=== PATIENT | male | born 1935 | race Caucasian/White ===

== ENCOUNTER → 2017-09-25 | Outpatient (CLI) | payer MEDICARE ==
[2017-09-25 07:26] LABS: BASO # 0.1 10^3/uL (0.0-0.2); BASO % 0.9 % (0.0-1.0); EOS # 0.7 10^3/uL (0.0-0.50); EOS % 6.7 % (0.0-3.0); HEMATOCRIT 43.4 % (42.0-52.0); HEMOGLOBIN 14.4 g/dl (13.5-17.5); IMMATURE GRANULOCYTE % 0.2 % (0-3.0); LYMPH # 1.4 10^3/uL (1.5-4.5); LYMPH % 14.8 % (24.0-44.0); MEAN CORPUSCULAR HEMOGLOBIN 29.8 pg (27.0-33.0); MEAN CORPUSCULAR HGB CONC 33.2 g/dl (32.0-36.5); MEAN CORPUSCULAR VOLUME 89.9 fl (80.0-96.0); MONO # 0.8 10^3/uL (0.0-0.8); MONO % 8.1 % (0.0-5.0); NEUTROPHILS # 6.7 10^3/uL (1.8-7.7); NEUTROPHILS % 69.3 % (36.0-66.0); PLATELET COUNT, AUTOMATED 239 10^3/uL (150-450); RED BLOOD COUNT 4.83 10^6/uL (4.30-6.10); RED CELL DISTRIBUTION WIDTH 14.1 % (11.5-14.5); WHITE BLOOD COUNT 9.7 10^3/uL (4.0-10.0)
[2017-09-25 07:48] LABS: C REACTIVE PROTEIN QUANTITATIV < 0.30 MG/DL (0.00-0.30)
[2017-09-25 08:15] LABS: ERYTHROCYTE SEDIMENTATION RATE 7 mm/hr (0-20)
== END ==
LOC: M RAD 06:54
DX: Z96.651 Presence of right artificial knee joint (principal)
CPT/HCPCS: 78315

== ENCOUNTER 2017-10-28 10:31 | Emergency (ER) | payer MEDICARE ==
[2017-10-28] MEDS: TETANUS/DIPHTHERIA TOX ADSORB ADULT 0.5ML SYR/VIAL (90714) IM (12:34)
[2017-10-28 12:46] LABS: INR 1.97; PROTHROMBIN TIME 22.8 SECONDS (12.1-14.4)
[2017-10-28 12:47] LABS: PARTIAL THROMBOPLASTIN TIME 39.2 SECONDS (25.4-37.6)
== END 2017-10-28 13:47 | disposition home or self-care (01) ==
LOC: M ED 10:31
DX: S00.93XA Contusion of unspecified part of head, initial encounter (principal); W22.8XXA Striking against or struck by other objects, initial encounter; Y92.018 Other place in single-family (private) house as the place of occurrence of the external cause; I10 Essential (primary) hypertension; I25.10 Atherosclerotic heart disease of native coronary artery without angina pectoris; I25.2 Old myocardial infarction; Z79.899 Other long term (current) drug therapy; Z79.82 Long term (current) use of aspirin; Z79.01 Long term (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s; Z88.3 Allergy status to other anti-infective agents; Z88.8 Allergy status to other drugs, medicaments and biological substances; Z91.013 Allergy to seafood; Z91.018 Allergy to other foods
CPT/HCPCS: 90714

== ENCOUNTER 2018-05-12 15:31 | Emergency (ER) | payer MEDICARE ==
[~2018-05-12 15:31] MED LIST: /WARF5TA; /WARF5TA PO; ACET65TA; ADV250INH INH; ADVAIR; AMLO10TA; AMLO10TAB; ASPI81TA85 PO; ATEN50TA2; AVAP300T; B-12100T2 PO; BRIM1OPD OP; FURO20TA2 PO; IRON27TA2 PO; LATA5OPD OP; LEVO75TA4 PO; LOSA50TA88 PO; MAALSUS; MOMETASONE FUROATE; NORV5TAB; PERC5TAB8; PERC7.5T8; PRIL20CA; PRIL20CA PO; PROV90AE; SIMV40TA2; TRAVOPROST; ZOCO80TA
[2018-05-12] MEDS ORDERED: XALA0.007 (16:21)
[2018-05-12] MEDS ORDERED: APAP325T4 PO (16:21)
[2018-05-12] MEDS ORDERED: ATOR40TA75 PO (16:21)
[2018-05-12] MEDS ORDERED: COUM1TAB17 (16:21)
[2018-05-12] MEDS ORDERED: traMADol 50 MG TAB PO ONE ×2 (17:30→20:30)
[2018-05-12 18:01] LABS: BASO # 0.1 10^3/uL (0.0-0.2); BASO % 0.8 % (0.0-1.0); EOS # 0.3 10^3/uL (0.0-0.50); EOS % 2.2 % (0.0-3.0); HEMATOCRIT 44.3 % (42.0-52.0); HEMOGLOBIN 14.3 g/dl (13.5-17.5); LYMPH # 1.5 10^3/uL (1.5-4.5); LYMPH % 10.2 % (24.0-44.0); MEAN CORPUSCULAR HGB CONC 32.3 g/dl (32.0-36.5); MEAN CORPUSCULAR VOLUME 89.9 fl (80.0-96.0); MONO % 6.9 % (0.0-5.0); NEUTROPHILS # 11.7 10^3/uL (1.8-7.7); NEUTROPHILS % 79.5 % (36.0-66.0); PLATELET COUNT, AUTOMATED 286 10^3/uL (150-450); RED BLOOD COUNT 4.93 10^6/uL (4.30-6.10); WHITE BLOOD COUNT 14.7 10^3/uL (4.0-10.0)
[2018-05-12 18:24] LABS: BLOOD UREA NITROGEN 29 MG/DL (7-18); CALCIUM LEVEL 9.2 MG/DL (8.8-10.2); CARBON DIOXIDE LEVEL 24 MEQ/L (21-32); CHLORIDE LEVEL 109 MEQ/L (98-107); CREATININE FOR GFR 1.25 MG/DL (0.70-1.30); GLUCOSE, FASTING 97 MG/DL (70-100); SODIUM LEVEL 141 MEQ/L (136-145)
[2018-05-12] MEDS ORDERED: ISOVUE-370 76% 100ML VIAL (Q9967) As Ordered ONE (18:28)
[2018-05-12 18:44] LABS: CPK CREATINE PHOSPHOKINASE 153 U/L (39-308); MB/CK RELATIVE INDEX 2.55 (< OR =4); TROPONIN I < 0.02 NG/ML (< 0.10)
--- NOTE | 2018-05-12 19:30 | REPVR ---
EXAM: CT Chest With Contrast EXAM DATE/TIME: 05/12/2018 6:30 PM CLINICAL HISTORY: 82 years old, male; Pain; Chest pain; Additional info: L flank pain, back pain after shoveling, PT tender TECHNIQUE: Axial computed tomography images of the chest with intravenous contrast. All CT scans at this facility use at least one of these dose optimization techniques: automated exposure control; mA and/or kV adjustment per patient size (includes targeted exams where dose is matched to clinical indication); or iterative reconstruction. Coronal and sagittal reformatted images were created and reviewed. Technologist notes: Facility exam id and description: [facility]. [facility] CT chest with contrast CONTRAST: Contrast Material: 75 ml of iso 370; Contrast Route: iv COMPARISON: No relevant prior studies available. FINDINGS: Lungs: Mild changes of centrilobular emphysema in the upper lung zones. Atelectasis right lung base. Pleural space: Normal. No pneumothorax. No pleural effusion. Heart: Normal. No cardiomegaly. No pericardial effusion. Pulmonary arteries: No pulmonary embolus. Aorta: The aorta demonstrates moderate atherosclerotic calcification. No aortic aneurysm or dissection. Lymph nodes: Mediastinal lymphadenopathy likely postinflammatory. Bones/joints: The spine demonstrates mild degenerative changes. Osteoporosis. Compression deformities of T4 and T5 likely osteoporotic in chronic although clinical correlation to exclude acute fractures, particularly at T4 suggested. Soft tissues: Unremarkable. IMPRESSION: 1. Mild changes of centrilobular emphysema in the upper lung zones. 2. No aortic aneurysm or dissection. 3. No pulmonary embolus. 4. Osteoporosis. Compression deformities of T4 and T5 likely osteoporotic in chronic although clinical correlation to exclude acute fractures, particularly at T4 suggested. MRI correlation would be helpful if clinically desired. Electronically signed by: Ashok Edwards On 05/12/2018 19:30:15 PM
--- NOTE | 2018-05-12 19:32 | REPVR ---
EXAM: CT Thoracic Spine Without Contrast EXAM DATE/TIME: 05/12/2018 6:30 PM CLINICAL HISTORY: 82 years old, male; Pain; Pain in thoracic spine; Additional info: Back/flank pain after shoveling x 2 wks TECHNIQUE: Axial computed tomography images of the thoracic spine without intravenous contrast. All CT scans at this facility use at least one of these dose optimization techniques: automated exposure control; mA and/or kV adjustment per patient size (includes targeted exams where dose is matched to clinical indication); or iterative reconstruction. Coronal and sagittal reformatted images were created and reviewed. Technologist notes: Facility exam id and description: CT. Spt[facility] CT spine, thoracic w/o contrast COMPARISON: No relevant prior studies available. FINDINGS: Vertebrae: Compression deformities of T7 and T6 which may be acute, likely related to osteoporosis. Pathological fracture and T6 should be considered as well in the appropriate clinical setting. Degenerative spondylosis thoracic spine. Discs/Spinal canal/Neural foramina: No spinal stenosis. No neural foraminal narrowing. Soft tissues: Unremarkable. IMPRESSION: Compression deformities of T7 and T6 which may be acute, likely related to osteoporosis. Pathological fracture and T6 should be considered as well in the appropriate clinical setting. MRI correlation would be helpful clinically desired. Electronically signed by: Ashok Edwards On 05/12/2018 19:32:26 PM
[2018-05-12] MEDS ORDERED: TRAM50TA2 PO (19:53)
[2018-05-12 20:03] VITALS: BP 163/72
--- NOTE | 2018-05-14 07:41 | ECGEPIP ---
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
--- NOTE | 2018-05-18 20:33 | ED PDOC ---
Post-Departure Follow-Up juliet thompson and kaity faxed formal report of ct chest for fu Ciaar Feliz MD May 18, 2018 20:33
== END 2018-05-12 20:32 | disposition home or self-care (01) ==
LOC: M ED 15:31
DX: S22.050A Wedge compression fracture of T5-T6 vertebra, initial encounter for closed fracture (principal); S22.060A Wedge compression fracture of T7-T8 vertebra, initial encounter for closed fracture; X50.0XXA Overexertion from strenuous movement or load, initial encounter; Y92.89 Other specified places as the place of occurrence of the external cause; M81.0 Age-related osteoporosis without current pathological fracture; I10 Essential (primary) hypertension; E78.5 Hyperlipidemia, unspecified; I25.2 Old myocardial infarction; Z87.891 Personal history of nicotine dependence; Z86.79 Personal history of other diseases of the circulatory system; Z79.899 Other long term (current) drug therapy; Z79.01 Long term (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s; Z79.51 Long term (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 inhaled steroids; Z79.82 Long term (current) use of aspirin; Z91.013 Allergy to seafood; Z88.1 Allergy status to other antibiotic agents; Z88.8 Allergy status to other drugs, medicaments and biological substances; Z91.018 Allergy to other foods
CPT/HCPCS: 71260; 72128; 80048; 82550; 82553; 84484; 85025; 93005; 99284; Q9967

== ENCOUNTER 2018-05-17 16:27 | Emergency (ER) | payer MEDICARE ==
[~2018-05-17] VITALS: Ht 160 cm; Wt 85.5 kg
[~2018-05-17 16:27] MED LIST changes: +APAP325T4 PO; +ATOR40TA75 PO; +COUM1TAB17; +TRAM50TA2 PO; +XALA0.007
[2018-05-17] MEDS ORDERED: FUROSEMIDE 100 MG/10 ML VIAL (J1940) IV ONE (16:45)
[2018-05-17] MEDS ORDERED: ASPIRIN 81 MG CHEW TABLET PO ONE (16:45)
[2018-05-17 17:02] LABS: BASO # 0.1 10^3/uL (0.0-0.2); BASO % 0.9 % (0.0-1.0); EOS # 0.5 10^3/uL (0.0-0.50); EOS % 4.6 % (0.0-3.0); HEMATOCRIT 40.8 % (42.0-52.0); HEMOGLOBIN 13.5 g/dl (13.5-17.5); LYMPH # 2.1 10^3/uL (1.5-4.5); LYMPH % 20.7 % (24.0-44.0); MEAN CORPUSCULAR HEMOGLOBIN 29.4 pg (27.0-33.0); MEAN CORPUSCULAR HGB CONC 33.1 g/dl (32.0-36.5); MEAN CORPUSCULAR VOLUME 88.9 fl (80.0-96.0); MONO # 0.9 10^3/uL (0.0-0.8); MONO % 8.7 % (0.0-5.0); NEUTROPHILS # 6.6 10^3/uL (1.8-7.7); NEUTROPHILS % 64.5 % (36.0-66.0); PLATELET COUNT, AUTOMATED 272 10^3/uL (150-450); RED BLOOD COUNT 4.59 10^6/uL (4.30-6.10); WHITE BLOOD COUNT 10.3 10^3/uL (4.0-10.0)
[2018-05-17 17:23] LABS: INR 3.23; PROTHROMBIN TIME 33.7 SECONDS (12.1-14.4)
[2018-05-17 17:31] LABS: BLOOD UREA NITROGEN 26 MG/DL (7-18); CALCIUM LEVEL 9.3 MG/DL (8.8-10.2); CARBON DIOXIDE LEVEL 25 MEQ/L (21-32); CHLORIDE LEVEL 110 MEQ/L (98-107); CPK CREATINE PHOSPHOKINASE 239 U/L (39-308); CREATININE FOR GFR 1.01 MG/DL (0.70-1.30); GLOMERULAR FILTRATION RATE > 60.0 (>35); GLUCOSE, FASTING 126 MG/DL (70-100); NT-PRO BNP 780 PG/ML (<450); POTASSIUM SERUM 3.7 MEQ/L (3.5-5.1); SODIUM LEVEL 143 MEQ/L (136-145); TROPONIN I < 0.02 NG/ML (< 0.10)
--- NOTE | 2018-05-17 19:20 | REPVR ---
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 Complete exam focused on the bilateral lower extremity veins. COMPARISON: No relevant prior studies available. FINDINGS: Right deep veins: Unremarkable. The common femoral, femoral, proximal profunda femoral and popliteal veins are patent without thrombus. Normal Doppler waveforms. Normal compressibility and/or augmentation response. Right superficial veins: Saphenofemoral junction is patent without thrombus. Right common femoral artery: Postoperative changes in the right common femoral artery. Left deep veins: Unremarkable. The common femoral, femoral, proximal profunda femoral and popliteal veins are patent without thrombus. Normal Doppler waveforms. Normal compressibility and/or augmentation response. Left superficial veins: Saphenofemoral junction is patent without thrombus. Soft tissues: Unremarkable. IMPRESSION: 1. No sonographic evidence of deep venous thrombosis. 2. Additional findings, as above. Electronically signed by: Osei Bates On 05/17/2018 19:20:13 PM
[2018-05-17 20:04] VITALS: BP 159/74
--- NOTE | 2018-05-18 08:39 | REP ---
Clinical: Chest pain. Comparison: 06/30/2013. Findings: Cardiac silhouette is upper limits of normal in size but remains stable. Evidence for prior coronary artery stenting. Lung hollis demonstrate chronic interstitial changes. No obvious acute consolidation, effusion, or pneumothorax. Skeletal structures demonstrate stable degenerative changes. Impression: Chronic stable changes. No obvious acute cardiopulmonary process appreciated. Electronically Signed by Romel Gtz MD 05/18/2018 08:30 A
--- NOTE | 2018-05-20 20:14 | ECGEPIP ---
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
== END 2018-05-17 20:10 | disposition home or self-care (01) ==
LOC: M ED 16:27 → EDBD 16:27 → M ED 20:10
DX: I50.9 Heart failure, unspecified (principal); R60.0 Localized edema; I11.0 Hypertensive heart disease with heart failure; K21.9 Gastro-esophageal reflux disease without esophagitis; E07.9 Disorder of thyroid, unspecified; I25.10 Atherosclerotic heart disease of native coronary artery without angina pectoris; Z95.5 Presence of coronary angioplasty implant and graft; Z79.899 Other long term (current) drug therapy; Z79.890 Hormone replacement therapy; Z79.82 Long term (current) use of aspirin; Z79.01 Long term (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s; Z88.1 Allergy status to other antibiotic agents; Z88.8 Allergy status to other drugs, medicaments and biological substances; Z91.018 Allergy to other foods
CPT/HCPCS: 36415; 71045; 80048; 82550; 82553; 83880; 84484; 85025; 85610; 93005; 93041; 93970; 94760; 96374; 99285; J1940

== ENCOUNTER → 2020-07-15 | Outpatient (CLI) | payer MEDICARE ==
[~2020-07-15] MED LIST changes: -/WARF5TA; -/WARF5TA PO; -ASPI81TA85 PO; +ASPI81TA86 PO; +COUM1TAB17 PO; +LATA0.0013 OP; -LATA5OPD OP
== END ==
LOC: M LABSMTC 08:56
PROVIDERS: ATTEND Internal Medicine Cardiovascular Disease
DX: Z11.52 Encounter for screening for COVID-19 (principal)

== ENCOUNTER → 2020-07-28 | Outpatient (CLI) | payer MEDICARE | LOC: M LABSMTC 13:23 | PROVIDERS: ATTEND Internal Medicine Cardiovascular Disease | DX: Z20.828 Contact with and (suspected) exposure to other viral communicable diseases (principal); Z11.59 Encounter for screening for other viral diseases ==

== ENCOUNTER → 2020-08-23 | Outpatient (REF) | payer MEDICARE | LOC: M LAB REF 16:48 | PROVIDERS: ATTEND Nurse Practitioner Family | DX: N39.0 Urinary tract infection, site not specified (principal) ==

== ENCOUNTER → 2020-09-04 | Outpatient (REF) | payer MEDICARE | LOC: M WUC 16:24 | PROVIDERS: ATTEND Physician Assistant | DX: R30.0 Dysuria (principal) ==

== ENCOUNTER → 2020-12-20 | Outpatient (REF) | payer MEDICARE | LOC: M LAB REF 11:39 | PROVIDERS: ATTEND Nurse Practitioner Adult Health | DX: N39.0 Urinary tract infection, site not specified (principal) ==

== ENCOUNTER 2021-01-09 11:19 | Inpatient (IN) | payer MEDICARE ==
[~2021-01-09] VITALS: Ht 152.4 cm; Wt 64.4 kg
[~2021-01-09 11:19] MED LIST changes: -BRIM1OPD OP; +BRIM1OPD OU
[2021-01-09 11:44] LABS: VENOUS BASE EXCESS 1.8 (-2.0-2.0); VENOUS HCO3 26.6 MEQ/L (23.0-27.0); VENOUS O2 SATURATION 72.7 % (60.0-80.0); VENOUS PARTIAL PRESSURE O2 40.3 mmHg (30.0-50.0); VENOUS PH 7.419 UNITS (7.330-7.430); VENOUS STANDARD HCO3 25.4 MEQ/L; VENOUS TOTAL CO2 27.9 MEQ/L (24.0-28.0)
[2021-01-09 11:46] LABS: BASO # 0.1 10^3/uL (0.0-0.2); BASO % 0.2 % (0.0-1.0); HEMATOCRIT 45.2 % (42.0-52.0); HEMOGLOBIN 14.4 g/dl (13.5-17.5); LYMPH # 0.7 10^3/uL (1.5-5.0); MEAN CORPUSCULAR HEMOGLOBIN 26.3 pg (27.0-33.0); MEAN CORPUSCULAR HGB CONC 31.9 g/dl (32.0-36.5); MEAN CORPUSCULAR VOLUME 82.6 fl (80.0-96.0); MONO # 1.4 10^3/uL (0.0-0.8); MONO % 6.5 % (2.0-8.0); NEUTROPHILS # 19.4 10^3/uL (1.5-8.5); NEUTROPHILS % 89.7 % (36.0-66.0); PLATELET COUNT, AUTOMATED 404 10^3/uL (150-450); RED BLOOD COUNT 5.47 10^6/uL (4.30-6.10); WHITE BLOOD COUNT 21.7 10^3/uL (4.0-10.0)
--- NOTE | 2021-01-09 11:47 | REP ---
INDICATION: DYSPNEA/COUGH. COMPARISON: Tubal the latest 05/17/2018 TECHNIQUE: Portable FINDINGS: The technique utilized in obtaining the radiograph has magnified the cardiac silhouette and accentuated the interstitial markings. Since the last exam a dual chamber bipolar pacemaker device has been placed. The leads appear appropriate and contiguous. An intracardiac device is also identified representing a change. The lung hollis appear stable. No acute patchy parenchymal opacities or pleural effusions have developed. There is evidence of interstitial fibrotic change status quo. There is no significant change in the osseous structures IMPRESSION: There is no evidence of acute cardiopulmonary disease. Findings as described above. <Electronically signed by Benigno Rod > 01/09/21 [id number]
[2021-01-09 12:18] LABS: ALBUMIN 3.6 GM/DL (3.2-5.2); BILIRUBIN,DIRECT 0.3 MG/DL (0.0-0.2); BILIRUBIN,TOTAL 1.1 MG/DL (0.2-1.0); CALCIUM LEVEL 10.2 MG/DL (8.8-10.2); CK-MB VALUE MASS 1.2 NG/ML (<3.6); CREATININE FOR GFR 1.76 MG/DL (0.70-1.30); GLOMERULAR FILTRATION RATE 39.5 (>35); MB/CK RELATIVE INDEX 3.16 (< OR =4); POTASSIUM SERUM 3.7 MEQ/L (3.5-5.1); THYROID STIMULATING HORMONE 5.88 uIU/ML (0.358-3.740); THYROXINE (T4) 8.6 UG/DL (4.5-12.0); TOTAL PROTEIN 7.7 GM/DL (6.4-8.2); TROPONIN I 0.04 NG/ML (< 0.10)
[2021-01-09 12:54] LABS: INR 4.09; PROTHROMBIN TIME 39.9 SECONDS (12.7-14.5)
[2021-01-09] MEDS ORDERED: WARF-23 PO (13:19)
[2021-01-09] MEDS ORDERED: CLOP75TA2 PO (13:19)
[2021-01-09] MEDS ORDERED: XALA0.007 OU (13:19)
[2021-01-09] MEDS ORDERED: MAGN400C PO (13:19)
[2021-01-09] MEDS ORDERED: XANA0.25 PO (13:19)
[2021-01-09] MEDS ORDERED: K-TA10TA2 PO (13:19)
[2021-01-09] MEDS ORDERED: OMEP-218 PO (13:19)
[2021-01-09] MEDS ORDERED: ATEN25TA PO (13:19)
[2021-01-09] MEDS ORDERED: PROAAER10 INH (13:19)
[2021-01-09] MEDS ORDERED: HOME MED LIST COMPLETE! XX SCH (13:20)
[2021-01-09] MEDS ORDERED: cefTRIAXone SOD 2 GM in D5W MINI-BAG PLUS 50 ML IV ONE (13:35)
--- NOTE | 2021-01-09 13:59 | REP ---
INDICATION: lactic acidosis COMPARISON: 05/12/2018 the only prior TECHNIQUE: Standard helical technique without contrast FINDINGS: There is no evidence of mediastinal or hilar adenopathy. There is a small right pleural effusion. The esophagus is fluid-filled. There is no pericardial effusion. The imaged upper abdomen shows a fluid-filled distended stomach. There is a tiny amount of ascites along the inferior hepatic edge. Evaluation of the osseous structures shows thoracic vertebral body compression fractures have increased in number and worsened in severity. Evaluation of the lung hollis shows a patchy opacity in the right lower lobe abutting the right pleural effusion. There is evidence of fibrotic change and emphysematous change status quo. No spiculated masses have developed. IMPRESSION: 1. There is a small right pleural effusion. 2. Likely subsegmental atelectatic changes in the right lower lobe versus developing pneumonia. 3. Other findings as described above. <Electronically signed by Benigno Rod > 01/09/21 [id number]
--- NOTE | 2021-01-09 14:04 | REP ---
INDICATION: lactic acidosis. COMPARISON: 02/22/2008 the only prior TECHNIQUE: Standard helical technique without contrast FINDINGS: There is a small amount of free fluid seen along the right inferior hepatic edge. The liver, gallbladder, spleen, pancreas, adrenal glands, and right kidney are unremarkable. There is a calcification in 1 of the extrarenal vessels consistent with renovascular calcifications. Arising from the inferior pole there is 4 cm size cyst. There is calcific atherosclerotic change in the abdominal aorta. There is no para-aortic adenopathy. Dilated fluid and gas-filled small bowel loops are seen throughout the abdomen and pelvis. There is a fluid and gas-filled distended stomach. There is a tiny amount of fluid in left paracolic gutter. There is a small ventral hernia through which small bowel loop protrudes. Bone window technique throughout the examination shows degenerative changes IMPRESSION: 1. Small bowel obstruction versus ileus. 2. Small amounts of free fluid. 3. Simple left renal cyst. 4. Small ventral hernia. 5. Other findings as described above. <Electronically signed by Benigno Rod > 01/09/21 [id number]
[2021-01-09] MEDS ORDERED: NS 2,080 ML in IV 1 EA IV ONE (14:25)
[2021-01-09] MEDS ORDERED: ALBUTEROL 90 MCG/ACT 8GM HFA INHALER INH PRN (15:30)
[2021-01-09] MEDS ORDERED: ALPRAZolam 0.25 MG TAB PO PRN (15:30)
[2021-01-09] MEDS ORDERED: ACETAMINOPHEN TAB 650MG DOSE (2X325MG) PO PRN (15:30)
--- OUTSIDE RECORDS SUMMARY | 2021-01-09 15:41 | CCD | Continuity of Care Document ---
Author Author Yovany Tristan MD Organization Unknown Address [address] [facility] [address] [place] [address] Phone [phone] Care Team Providers Care Flux Plant Operator Name Role Phone Sameer Tristan JR, MD AUTM Unavailable Nicolas Albert MD AUTM [phone] Dick Medina MD AUTM [phone] Servando Collins MD AUTM [phone] Clara Lagunas OD AUTM Unavailable Renetta Swanson MD AUTM [phone] Brenda Mcgraw AUTM [phone] Problems Active Problems Provider Date Anticoagulants Knowledge Architect (Current) Use O nset: 01/25/1997 Injury Blood Vessel(S) Lower Extrem Other Specified Onset: 01/25/1997 Coronary arteriosclerosis Sameer Tristan MD Onset: 10/21 Chronic obstructive lung disease Sameer Tristan MD Onset : 10/21/2010 Gastroesophageal reflux disease Sameer Tristan MD Onset: 10/21/2010 Garza's esophagus Sameer Tristan MD Onset: 10/21/2010 Old myocardial infarction ELENA Lucas Onset: 011 Hematuria syndrome ELENA Lucas Onset: 10/21/2010 Benign essential hypertension ELENA Lucas Onset: Pure hypercholesterolemia ELENA Lucas Onset: 011 Long-term current use of 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 Sameer Tristan MD Onset: 12/23/2014 Essential hypertension Sameer Tristan MD Onset: 12/24/19 15 Other specified injury of other blood ve ssels at hip and thigh level, right leg, subsequent encounter Sameer Tristan MD Onset: 12/23/2014 Late effect of injury to blood vessels of head, neck AND/OR extremities Protime Onset: 04/12/2015 Aortic valve disorder Frederick Tristan DO Onset: 021 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 Onse t: 10/25/2020 Chronic systolic dysfunction of left ventricle Frederick garcias DO Onset: 10/25/2020 Social History Type Date Description Comments Sex Unknown ETOH Use Consumed 2 beers per day in the past Tobacco Use Start: Unknown End: Unknown Patient is a former smoker SMOKED FOR 30 YRS 3 PACKS A DAY Allergies and adverse reactions Active Allergies Criticality Reaction | Severity Comments Date Lotrel,Valsarten,HCTZ Unable to assess criticality LIPS AND TONGUE SWELLING, LOTREL AND HCTZ-RASH, VALSARTEN-HIVES 01/16/2010 Eggs Unable to assess criticality 03/02/2012 Fish-derived Products Unable to assess criticality Anything That Has To DO With 06/21/2016 Benadryl Unable to assess criticality Swelling Of The Lips 06/21/2016 Medications Active Medications SIG Qnty Indications Ordering Provide r Date Alprazolam 0.25mg Tablets 1/2 - one tablet twice daily as needed anxiety 14tabs ELENA Lucas 1 Escitalopram Oxalate 5mg Tablets 1 by mouth every day 30tabs ELENA Lucas 12/22/2020 Magnesium Oxide -MG Supplement 400mg Capsules 1 by mouth twice a day 60caps ELENA Lucas 0 12/01/2020 Potassium Chloride Nisha ER 10Meq Tablets ER 2 tablets three times the first day then 2 by mouth every day 60 tabs ELENA Lucas 11/30/2020 Flonase Allergy Relief 50mcg/Act Suspension 1 spray each nostril every day as needed 9.900ml Frederick Tristan DO 10/25/2020 Warfarin Sodium 5mg Tablets take one tablet by mouth every day or as directed 240tabs Sameer Tristan MD 02/14/2020 Levothyroxine Sodium 75mcg Tablets take one tablet by mouth every day 90tabs Sameer Tristan MD 02/23/2016 Advair Diskus 250-50mcg/Dose Aeros ol Inhale One puff By Mouth Two Times A Day 60units Sameer Tristan MD 06/13/2015 Atorvastatin Calcium 40mg Tablets 1 by mouth every day dx:272 14tabs Sameer Tristan MD 08/[address] 2 po qd 60caps Sameer Tristan MD 09/05/2009 Clopidogrel Bisulfate 75mg Tablets 1 by mouth every day Unknown Furosemide 40mg Tablets 1/2 d aily R60.0 Unknown Atenolol 25mg Tablets one tablet by mouth daily Unknown Ventolin HFA 108(90Base) mcg/Act A erosol 2 puffs four times a day as needed Unknown History Medications Nitrofurantoin Monohyd Macro 100mg Capsules one every 12 hours 14caps N39.0 [facility] Medications Administered in Office Medication SIG Qnty Indications Ordering Provider Date Administration Of Flu Vaccine Inj ection Balbina Crespo [facility] 12/20/2020 Immunization Adminstration,1 Vaccine/Tox oid Injection Balbina Crespo [facility] 12/20/2020 Covid-19 vaccine, Unspecified Inj ection Unknown 07/26/2020 Covid-19 vaccine, Unspecified Inj ection Unknown 06/24/2020 Administration Of Flu Vaccine Inj hernan Tristan MD 12/29/2019 Administration Of Flu Vaccine Inj hernan Tristan MD 12/28/2018 Administration Of Flu Vaccine Inj hernan Tristan MD 01/05/2018 Immunization Adminstration,1 Vaccine/Tox oid Injection Sameer Tristan MD 2017 Administration Of Flu Vaccine Inj hernan Tristan MD 01/01/2017 Administration Of Flu Vaccine Inj hernan Tristan MD 01/16/2016 Administration Of Flu Vaccine Inj hernan Tristan MD 12/23/2014 Administration Of Flu Vaccine Inj hernan Tristan MD 01/12/2014 Immunizations CPT Code Status Date Vaccine Lot # [id number] Given 12/20/2020 Adacel- Tetanus Diphtheria P ertussis [id number] 87192 Given 12/20/2020 Influenza Vaccin e Quadrivalent Preser/Antibiotic Free Im Use 87057 Given 12/20/2020 Influenza Vaccin e Quadrivalent Preser/Antibiotic Free Im Use [id number] 55196 Given 12/20/2020 Adacel- Tetanus Diphtheria P ertussis 73832 Given 12/29/2019 Influenza Vaccin e Quadrivalent Preser/Antibiotic Free Im Use 82346 Given 12/28/2018 Influenza Vaccin e Quadrivalent Preser/Antibiotic Free Im Use [id number] 62572 Given 01/05/2018 Influenza Virus Vaccine, Quadrivalent ([id number]), Derived From 4 Given 12/02/2017 Shingrix U-Td Given 10/28/2017 Td(Adult)(Tetanus, Diphtheri a) unspecified 66355 Given 09/09/2017 Shingrix 26207 Given 01/01/2017 Influenza Vaccin e Quadrivalent Preser/Antibiotic Free Im Use [id number] Q2037 Given 01/16/2016 Fluvirin Virus Vaccine 13657 01 Q2037 Given 12/23/2014 Fluvirin Virus Vaccine 25082 01 53516 Given 04/29/2014 Prevnar 13 [id number] Q2037 Given 01/12/2014 Fluvirin Virus Vaccine 98229 01 87174 Given 01/23/2007 Pneumovax 23 55235 Given 08/20/2005 Tetanus/Diptheria(Td)Toxoids Preservative Free 28690 Given 07/26/1997 Pneumovax 23 [id number] Refused 12/20/2011 Fluvirin Virus Vaccine Q2037 Refused 12/19/2010 Fluvirin Virus Vaccine Vital Signs Date Vital Result Comment 01/05/2021 11:44am BP Systolic 128 mmHg BP Diastolic 76 mmHg Heart Rate 78 /min Height 63 inches 5'3" Weight 150.00 lb BMI (Body Mass Index) 26.6 kg/m2 01/03/2021 11:28am BP Systolic 122 mmHg BP Diastolic 84 mmHg Heart Rate 98 /min Height 63 inches 5'3" Weight 151.00 lb O2 % BldC Oximetry 96 % BMI (Body Mass Index) 26.7 kg/m2 Results Test Acquired Date Facility Test Result H/L Range Note Laboratory test finding 01/05/2021 [facility] Retail Sales Manager: [place] [address] [phone] Magnesium 2.1 mg/dL 1.8 - 2.4 Comprehensive Chem Profile 01/05/2021 [facility] Retail Sales Manager: [place] [address] [phone] Glucose 100 mg/dL High 74 - 99 1 BUN 21 mg/dL High 7 - 18 Creatinine 1.2 mg/dL 0.6 - 1.3 Sodium 145 mEq/L 136 - 145 Potassium 4.4 mEq/L 3.5 - 5.1 Chloride 109 mEq/L High 98 - 107 Carbon Dioxide 27 mEq/L 21 - 32 Calcium 9.5 mg/dL 8.5 - 10.1 Alk. Phosphatase 174 mg/dL High 46 - 116 Total Bilirubin 0.8 mg/dL 0.2 - 1.0 Ast (Sgot) 20 U/L 15 - 37 Alt (SGPT) 27 U/L 12 - 78 Albumin 3.5 g/dL 3.4 - 5.0 Total Protein 7.5 g/dL 6.4 - 8.2 A/G Ratio 0.88 CALC Low 1.00 - 1.90 GFR 58 mL/min Low >60 GFR >= 60 mL/min >60 2 Lipid Profile 01/05/2021 [facility] Retail Sales Manager: [place] [address] [phone] Cholesterol 133 mg/dL 131 - 200 Triglycerides 85 mg/dL 30 - 150 HDL Cholesterol 47 mg/dL 35 - 60 LDL (Calculated) 69 CALC 50 - 159 Laboratory test finding 01/05/2021 [facility] Retail Sales Manager: [place] [address] [phone] Thyroid Stimulating Hormone 4.53 uIU/mL High 0.3 6 - 3.74 Complete Blood Count 01/05/2021 [facility] Retail Sales Manager: [place] [address] [phone] WBC 9.1 x10*3/UL 4.1 - 10.9 RBC 4.90 x10*6/UL 4.20 - 6.30 Hemoglobin 13.0 g/dL 12.0 - 18.0 Hematocrit 40.0 % 37.0 - 51.0 MCV 81.7 fL 80.0 - 97.0 MCH 26.5 pg 26.0 - 32.0 MCHC 32.5 g/dL 31.0 - 38.0 RDW 14.6 % High 11.6 - 13.7 PLT 365 x10*3/UL 140 - 440 MPV 8.6 FL 7.8 - 11.0 Lymph % 13.6 % 10.0 - 58.5 Mid % 5.3 % 1.7 - 9.3 Neut % 81.1 % 37.0 - 92.0 Lymph # 1.2 x10*3/UL 0.6 - 4.1 Mid # 0.5 x10*3/UL 0.1 - 0.6 Neut # 7.4 x10*3/UL 2.0 - 7.8 Laboratory test finding 01/03/2021 [facility] 1.9 Laboratory test finding 12/27/2020 [facility] 1.9 Basic Metabolic Panel 12/20/2020 [facility] Retail Sales Manager: [place] [address] [phone] Glucose 108 mg/dL High 74 - 99 3 BUN 28 mg/dL High 7 - 18 Creatinine 1.5 mg/dL High 0.6 - 1.3 Sodium 143 mEq/L 136 - 145 Potassium 4.3 mEq/L 3.5 - 5.1 Chloride 105 mEq/L 98 - 107 Carbon Dioxide 28 mEq/L 21 - 32 Calcium 10.0 mg/dL 8.5 - 10.1 GFR 45 mL/min Low >60 GFR 54 mL/min Low >60 4 Ua Dipstick Only 12/20/2020 [facility] Retail Sales Manager: [place] [address] [phone] Urine Color YELLOW Yellow Urine Appearance CLOUDY Abnormal Clear Urine PH 6.0 units 5.0 - 9.0 Urine Specific [place] 1.010 1.005 - 1.030 Urine Leukocytes LARGE Abnormal Negative Urine Blood SMALL Abnormal Negative Urine Protein 1+ Abnormal Negative -Trace Urine Glucose NEGATIVE mg/dL Negative Urine Nitrite POSITIVE Abnormal Negative Urine Ketone NEGATIVE mg/dL Negative Urine Bilirubin NEGATIVE Negative Urine Urobilinogen 0.2 mg/dL 0.2 - 1.0 Laboratory test finding 12/20/2020 [facility] [address] [place] [address] [phone] Urine Culture FULL REPORT IN L <SEE NOTE> Normal 5 Complete Blood Count 12/20/2020 [facility] Retail Sales Manager: [place] [address] [phone] WBC 11.6 x10*3/UL High 4.1 - 10.9 6 RBC 4.90 x10*6/UL 4.20 - 6.30 Hemoglobin 13.5 g/dL 12.0 - 18.0 Hematocrit 40.7 % 37.0 - 51.0 MCV 83.0 fL 80.0 - 97.0 MCH 27.7 pg 26.0 - 32.0 MCHC 33.3 g/dL 31.0 - 38.0 RDW 14.5 % High 11.6 - 13.7 PLT 298 x10*3/UL 140 - 440 MPV 9.0 FL 7.8 - 11.0 Lymph % 9.5 % Low 10.0 - 58.5 Mid % 3.1 % 1.7 - 9.3 Neut % 87.4 % 37.0 - 92.0 Lymph # 1.1 x10*3/UL 0.6 - 4.1 Mid # 0.4 x10*3/UL 0.1 - 0.6 Neut # 10.1 x10*3/UL High 2.0 - 7.8 Laboratory test finding 12/20/2020 [facility] 1.9 Laboratory test finding 12/13/2020 [facility] 4.8 Complete Blood Count 12/13/2020 [facility] Retail Sales Manager: [place] [address] [phone] WBC 14.4 x10*3/UL High 4.1 - 10.9 7 RBC 4.67 x10*6/UL 4.20 - 6.30 Hemoglobin 13.0 g/dL 12.0 - 18.0 Hematocrit 38.8 % 37.0 - 51.0 MCV 83.2 fL 80.0 - 97.0 MCH 27.9 pg 26.0 - 32.0 MCHC 33.6 g/dL 31.0 - 38.0 RDW 14.5 % High 11.6 - 13.7 PLT 270 x10*3/UL 140 - 440 MPV 9.4 FL 7.8 - 11.0 Lymph % 8.9 % Low 10.0 - 58.5 Mid % 3.1 % 1.7 - 9.3 Neut % 88.0 % 37.0 - 92.0 Lymph # 1.2 x10*3/UL 0.6 - 4.1 Mid # 0.5 x10*3/UL 0.1 - 0.6 Neut # 12.7 x10*3/UL High 2.0 - 7.8 Basic Metabolic Panel 12/13/2020 [facility] Retail Sales Manager: Dr Sameer Tristan [place], [place] [id number] [phone] Glucose 120 mg/dL High 74 - 99 8 BUN 18 mg/dL 7 - 18 Creatinine 1.2 mg/dL 0.6 - 1.3 Sodium 142 mEq/L 136 - 145 Potassium 3.5 mEq/L 3.5 - 5.1 Chloride 106 mEq/L 98 - 107 Carbon Dioxide 28 mEq/L 21 - 32 Calcium 9.3 mg/dL 8.5 - 10.1 GFR 58 mL/min Low >60 GFR >= 60 mL/min >60 9 Laboratory test finding 12/13/2020 [facility], Retail Sales Manager: Dr Sameer Tristan [place], [place] [id number] [phone] Magnesium 1.5 mg/dL Low 1.8 - 2.4 Laboratory test finding 12/04/2020 [facility], Retail Sales Manager: Dr Sameer Tristan [place], [place] [id number] [phone] Potassium 3.9 mEq/L 3.5 - 5.1 Basic Metabolic Panel 11/30/2020 [facility] Retail Sales Manager: Dr Sameer Tristan [place] [id number] [phone] Glucose 94 mg/dL 74 - 99 10 BUN 17 mg/dL 7 - 18 Creatinine 1.1 mg/dL 0.6 - 1.3 Sodium 145 mEq/L 136 - 145 Potassium 2.9 mEq/L Low 3.5 - 5.1 11 Chloride 104 mEq/L 98 - 107 Carbon Dioxide 30 mEq/L 21 - 32 Calcium 9.3 mg/dL 8.5 - 10.1 GFR >= 60 mL/min >60 GFR >= 60 mL/min >60 12 Laboratory test finding 11/30/2020 [facility] 3.1 Laboratory test finding 11/30/2020 [facility] Retail Sales Manager: [place] [address] [phone] Magnesium 1.3 mg/dL Low 1.8 - 2.4 Complete Blood Count 10/25/2020 [facility] Retail Sales Manager: [place] [address] [phone] WBC 10.3 x10*3/UL 4.1 - 10.9 RBC 4.77 x10*6/UL 4.20 - 6.30 Hemoglobin 13.6 g/dL 12.0 - 18.0 Hematocrit 40.3 % 37.0 - 51.0 MCV 84.4 fL 80.0 - 97.0 MCH 28.5 pg 26.0 - 32.0 MCHC 33.7 g/dL 31.0 - 38.0 RDW 14.2 % High 11.6 - 13.7 PLT 323 x10*3/UL 140 - 440 MPV 9.0 FL 7.8 - 11.0 Lymph % 14.5 % 10.0 - 58.5 Mid % 4.4 % 1.7 - 9.3 Neut % 81.1 % 37.0 - 92.0 Lymph # 1.5 x10*3/UL 0.6 - 4.1 Mid # 0.4 x10*3/UL 0.1 - 0.6 Neut # 8.4 x10*3/UL High 2.0 - 7.8 Comprehensive Chem Profile 10/25/2020 [facility] Retail Sales Manager: [place] [address] [phone] Glucose 100 mg/dL High 74 - 99 13 BUN 17 mg/dL 7 - 18 Creatinine 1.2 mg/dL 0.6 - 1.3 Sodium 145 mEq/L 136 - 145 Potassium 4.0 mEq/L 3.5 - 5.1 Chloride 106 mEq/L 98 - 107 Carbon Dioxide 29 mEq/L 21 - 32 Calcium 10.0 mg/dL 8.5 - 10.1 Alk. Phosphatase 129 mg/dL High 46 - 116 Total Bilirubin 0.9 mg/dL 0.2 - 1.0 Ast (Sgot) 17 U/L 15 - 37 Alt (SGPT) 18 U/L 12 - 78 Albumin 3.8 g/dL 3.4 - 5.0 Total Protein 7.8 g/dL 6.4 - 8.2 A/G Ratio 0.95 CALC Low 1.00 - 1.90 GFR 58 mL/min Low >60 GFR >= 60 mL/min >60 14 Laboratory test finding 09/05/2020 [facility] 3.4 Complete Blood Count 09/05/2020 [facility] Retail Sales Manager: [place] [address] [phone] WBC 12.1 x10*3/UL High 4.1 - 10.9 15 RBC 4.48 x10*6/UL 4.20 - 6.30 Hemoglobin 12.9 g/dL 12.0 - 18.0 Hematocrit 38.3 % 37.0 - 51.0 MCV 85.3 fL 80.0 - 97.0 MCH 28.8 pg 26.0 - 32.0 MCHC 33.8 g/dL 31.0 - 38.0 RDW 13.7 % 11.6 - 13.7 PLT 338 x10*3/UL 140 - 440 MPV 9.0 FL 7.8 - 11.0 Lymph % 10.7 % 10.0 - 58.5 Mid % 3.7 % 1.7 - 9.3 Neut % 85.6 % 37.0 - 92.0 Lymph # 1.3 x10*3/UL 0.6 - 4.1 Mid # 0.4 x10*3/UL 0.1 - 0.6 Neut # 10.4 x10*3/UL High 2.0 - 7.8 Basic Metabolic Panel 09/05/2020 [facility] Retail Sales Manager: [place] [address] [phone] Glucose 108 mg/dL High 74 - 99 16 BUN 26 mg/dL High 7 - 18 Creatinine 1.3 mg/dL 0.6 - 1.3 Sodium 144 mEq/L 136 - 145 Potassium 3.4 mEq/L Low 3.5 - 5.1 Chloride 105 mEq/L 98 - 107 Carbon Dioxide 26 mEq/L 21 - 32 Calcium 9.5 mg/dL 8.5 - 10.1 GFR 53 mL/min Low >60 GFR >= 60 mL/min >60 17 Laboratory test finding 09/05/2020 [facility] Retail Sales Manager: Dr Sameer Tristan [place], [place] [id number] [phone] Magnesium 1.6 mg/dL Low 1.8 - 2.4 Laboratory test finding 08/28/2020 [facility] 3.7 Laboratory test finding 08/22/2020 [facility] 4.1 Laboratory test finding 08/14/2020 [facility] 3.9 Laboratory test finding 08/07/2020 [facility] 1.5 Complete Blood Count 08/07/2020 [facility] Retail Sales Manager: Dr Sameer Tristan [place], [place] [id number] [phone] WBC 10.6 x10*3/UL 4.1 - 10.9 RBC 4.62 x10*6/UL 4.20 - 6.30 Hemoglobin 13.6 g/dL 12.0 - 18.0 Hematocrit 39.7 % 37.0 - 51.0 MCV 85.9 fL 80.0 - 97.0 MCH 29.5 pg 26.0 - 32.0 MCHC 34.3 g/dL 31.0 - 38.0 RDW 13.3 % 11.6 - 13.7 PLT 249 x10*3/UL 140 - 440 MPV 9.1 FL 7.8 - 11.0 Lymph % 13.6 % 10.0 - 58.5 Mid % 3.7 % 1.7 - 9.3 Neut % 82.7 % 37.0 - 92.0 Lymph # 1.4 x10*3/UL 0.6 - 4.1 Mid # 0.4 x10*3/UL 0.1 - 0.6 Neut # 8.8 x10*3/UL High 2.0 - 7.8 Basic Metabolic Panel 08/07/2020 [facility] Retail Sales Manager: [place] [address] [phone] Glucose 103 mg/dL High 74 - 99 18 BUN 19 mg/dL High 7 - 18 Creatinine 1.2 mg/dL 0.6 - 1.3 Sodium 142 mEq/L 136 - 145 Potassium 3.3 mEq/L Low 3.5 - 5.1 19 Chloride 102 mEq/L 98 - 107 Carbon Dioxide 31 mEq/L 21 - 32 Calcium 9.1 mg/dL 8.5 - 10.1 GFR 58 mL/min Low >60 GFR >= 60 mL/min >60 20 Coronavirus 2019 Nasopharygeal 07/28/[address] [address] [phone] Coronavirus 2019 Nasopharygeal ASSAY INFORMATIO <SEE N OTE> 21 Laboratory test finding 07/17/2020 [facility] 3.2 Coronavirus 2019 Nasopharygeal 07/15/[address] [address] [phone] Coronavirus 2019 Nasopharygeal ASSAY INFORMATIO <SEE N OTE> 22 1 100-125 mg/dL PRE-DIABET ES/FASTING >126 mg/dL DIABETES/FASTING 2 CHRONIC KIDNEY DISEASE STAGI NG PER NKF STAGE I & II GFR >= 60 NORMAL TO MILDLY DECREASED STAGE III GFR 30-59 MODERATELY DECREASED STAGE IV GFR 15-29 SEVERELY DECREASED STAGE V GFR <15 VERY LITTLE GFR LEFT ESRD GFR <15 ON MEDIA TRAFFIC MANAGER 3 100-125 mg/dL PRE-DIABET ES/FASTING >126 mg/dL DIABETES/FASTING 4 CHRONIC KIDNEY DISEASE STAGI NG PER NKF STAGE I & II GFR >= 60 NORMAL TO MILDLY DECREASED STAGE III GFR 30-59 MODERATELY DECREASED STAGE IV GFR 15-29 SEVERELY DECREASED STAGE V GFR <15 VERY LITTLE GFR LEFT ESRD GFR <15 ON MEDIA TRAFFIC MANAGER 5 FULL REPORT IN LAB NOTES (eC W and [facility]). ORGANISM 1: ESCHERICHIA COLI COLONY COUNT >100,000 ORGANISM 1: ESCHERICHIA COLI ESCHERICHIA COLI: REACTION TRIMETHOPRIM/SULFAMETHOXAZOLE IV 160mg TMP & 800mg SMXq6h <=20 S TRIMETHOPRIM/SULFAMETHOXAZOLE PO Bactrim DS Bid <=20 S AMPICILLIN IV 500mg q6h <=2 S AMPICILLIN PO 500mg q6h fasting <=2 S GENTAMICIN IV 80mg q8h <=1 S NITROFURANTOIN PO 100mg BID <=16 S CEFAZOLIN IV 1gm q8h <=4 S LEVOFLOXACIN IV 500mg qd <=0.12 S LEVOFLOXACIN PO 250mg qd <=0.12 S LEVOFLOXACIN PO 500mg qd <=0.12 S TOBRAMYCIN IV 80mg q8h <=1 S CEFTRIAXONE IV 1gm q24h <=1 S CEFTAZIDIME IV 1gm q8h <=1 S AMPICILLIN/SULBACTAM IV 1.5g q6h <=2 S PIPERACILLIN/TAZOBACTAM IV 2.25 gm q6h <=4 S AZTREONAM IV 1gm q8h <=1 S ERTAPENEM IV 1gm qd <=0.5 S MEROPENEM IV 1 gm q8h <=0.25 S MEROPENEM IV 500 mg q8h <=0.25 S TIGECYCLINE IV 50mg q12h <=0.5 S CEFEPIME IV 1 gm q12h <=1 S CEFEPIME IV 2 gm q12h <=1 S EXTD BRD SPCTRM BETA LACTAMASE IV NEGATIVE FOR ESBL 6 NOTE: RESULT VERIFIED. 7 NOTE: RESULT VERIFIED. 8 100-125 mg/dL PRE-DIABET ES/FASTING >126 mg/dL DIABETES/FASTING 9 CHRONIC KIDNEY DISEASE STAGI NG PER NKF STAGE I & II GFR >= 60 NORMAL TO MILDLY DECREASED STAGE III GFR 30-59 MODERATELY DECREASED STAGE IV GFR 15-29 SEVERELY DECREASED STAGE V GFR <15 VERY LITTLE GFR LEFT ESRD GFR <15 ON MEDIA TRAFFIC MANAGER 10 100-125 mg/dL PRE-DIABET ES/FASTING >126 mg/dL DIABETES/FASTING 11 NOTE: RESULT VERIFIED. 12 CHRONIC KIDNEY DISEASE STAGI NG PER NKF STAGE I & II GFR >= 60 NORMAL TO MILDLY DECREASED STAGE III GFR 30-59 MODERATELY DECREASED STAGE IV GFR 15-29 SEVERELY DECREASED STAGE V GFR <15 VERY LITTLE GFR LEFT ESRD GFR <15 ON MEDIA TRAFFIC MANAGER 13 100-125 mg/dL PRE-DIABET ES/FASTING >126 mg/dL DIABETES/FASTING 14 CHRONIC KIDNEY DISEASE STAGI NG PER NKF STAGE I & II GFR >= 60 NORMAL TO MILDLY DECREASED STAGE III GFR 30-59 MODERATELY DECREASED STAGE IV GFR 15-29 SEVERELY DECREASED STAGE V GFR <15 VERY LITTLE GFR LEFT ESRD GFR <15 ON MEDIA TRAFFIC MANAGER 15 NOTE: RESULT VERIFIED. 16 100-125 mg/dL PRE-DIABET ES/FASTING >126 mg/dL DIABETES/FASTING 17 CHRONIC KIDNEY DISEASE STAGI NG PER NKF STAGE I & II GFR >= 60 NORMAL TO MILDLY DECREASED STAGE III GFR 30-59 MODERATELY DECREASED STAGE IV GFR 15-29 SEVERELY DECREASED STAGE V GFR <15 VERY LITTLE GFR LEFT ESRD GFR <15 ON MEDIA TRAFFIC MANAGER 18 100-125 mg/dL PRE-DIABET ES/FASTING >126 mg/dL DIABETES/FASTING 19 NOTE: RESULT VERIFIED. 20 CHRONIC KIDNEY DISEASE STAGI NG PER NKF STAGE I & II GFR >= 60 NORMAL TO MILDLY DECREASED STAGE III GFR 30-59 MODERATELY DECREASED STAGE IV GFR 15-29 SEVERELY DECREASED STAGE V GFR <15 VERY LITTLE GFR LEFT ESRD GFR <15 ON MEDIA TRAFFIC MANAGER 21 ASSAY INFORMATION: Real Time RT-PCR NOTE: The COVID-19 assay has been cleared by the U.S. Food and Drug Administration under the Emergency Use Authorization (EUA). [facility] and [facility] are designated as high complexity laboratories by the Clinical Laboratory Improvement Amendments of 1988(CLIA) and are qualified to perform this test. Not Detected 22 ASSAY INFORMATION: Real Time RT-PCR NOTE: The COVID-19 assay has been cleared by the U.S. Food and Drug Administration under the Emergency Use Authorization (EUA). [facility] and [facility] are designated as high complexity laboratories by the Clinical Laboratory Improvement Amendments of 1988(CLIA) and are qualified to perform this test. Not Detected Procedures Date Code Description Status 01/03/2021 79196 Office/Outpatient Established Lo w MDM 20-29 Min Completed 12/20/2020 78131 Office/Outpatient Established Lo w MDM 20-29 Min Completed 12/13/2020 77823 Office/Outpatient Established Mo d MDM 30-39 Min Completed 12/13/2020 37811 Office/Outpatient Established Mo d MDM 30-39 Min Completed 12/13/2020 54451 EKG/Interpretation & Report Comp leted 12/13/2020 66077 EKG/Interpretation & Report Comp leted 10/25/2020 54802 Office/Outpatient Established Mo d MDM 30-39 Min Completed 08/07/2020 50681 Office/Outpatient Established Mo d MDM 30-39 Min Completed 10/06/2013 [id number] Colonoscopy Completed 06/16/2006 [id number] Colonoscopy Completed 12/12/2005 [id number] Mammogram Completed Medical Devices Description No Information Available Encounters Type Date Location Provider Dx Diagnosis Office Visit 01/03/2021 11:40a [facility] 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 Balbina Vincent ne, PHOTOENGRAVING APPRENTICE N39.0 Urinary tract infection, site not specif ied R06.02 Shortness of breath E87.6 Hypokalemia Z79.01 residential (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s S41.111A Laceration w/o foreign body of right upper arm, init encntr W10.8xxA Fall (on) (from) other stair s and steps, initial encounter Z23 Encounter for immunization Office Visit 12/13/2020 3:20p [facility] 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 Chr ismilton Tristan, DO I35.0 Nonrheumatic aortic (valve) stenosis 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 I50.22 Chronic systolic (congestive ) heart failure I44.2 Atrioventricular block, comp lete I10 Essential (primary) hyperten mena Z79.01 terminal carman (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s Z51.[address] estrada level monitoring Office Visit 08/07/2020 8:40a [facility] 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 Z95.5 Presence of coronary angiopl asty implant and graft Assessments Date Code Description Provider 01/05/2021 I13.0 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 and stage 1 through stage 4 chronic kidney disease, or unspecified chronic kidney disease Sameer Tristan MD 01/05/2021 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 Sameer Tristan MD 01/05/2021 N18.31 Chronic kidney disease, stage 3a Saemer Tristan MD 01/05/2021 J43.2 Centrilobular emphysema Sameer Tristan MD 01/05/2021 S75.891D Other specified inju ry of other blood vessels at hip and thigh level, right leg, subsequent encounter Sameer Tristan MD 01/05/2021 Z79.01 residential (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s Sameer Tristan MD 01/05/2021 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 Sameer Tristan MD 01/05/2021 Z95.5 Presence of coronary angioplasty implant and graft Sameer Tristan MD 01/05/2021 E87.6 Hypokalemia Sameer chapman MD 01/05/2021 F41.9 Anxiety disorder, unspecified Co tamia Tristan MD 01/05/2021 I35.0 Nonrheumatic aortic (valve) sten osis Sameer Tristan MD 01/05/2021 Z95.0 Presence of cardiac pacemaker Co tamia Tristan MD 01/03/2021 J43.2 Centrilobular emphysema Balbina Caballero, [facility] 01/03/2021 F41.9 Anxiety disorder, unspecified An n Pearl Zac [facility] 01/03/2021 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 Balbina Crespo [facility] 01/03/2021 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 Balbina Crespo [facility] 01/03/2021 Z51.81 Encounter for therapeutic drug l evel monitoring Pro[facility] 01/03/2021 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 Balbina Crespo [facility] 01/03/2021 S75.891D Other specified inju ry of other blood vessels at hip and thigh level, right leg, subsequent encounter [facility] 12/27/2020 S75.891D Other specified inju ry of other blood vessels at hip and thigh level, right leg, subsequent encounter Balbina Crespo [facility] 12/27/2020 S75.891D Other specified inju ry of other blood vessels at hip and thigh level, right leg, subsequent encounter [facility] 12/27/2020 Z79.01 residential (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s Balbina Crespo [facility] 12/27/2020 Z79.01 terminal carman (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s [facility] 12/27/2020 Z51.81 Encounter for therapeutic drug l evel monitoring Balbina Crespo [facility] 12/27/2020 Z51.81 Encounter for therapeutic drug l evel monitoring Protime 12/20/2020 Z51.81 Encounter for therapeutic drug l evel monitoring Balbina Crespo [facility] 12/20/2020 Z51.81 Encounter for therapeutic drug l evel monitoring Protime 12/20/2020 Z79.01 terminal carman (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s Balbina Crespo, [facility] 12/20/2020 Z79.01 terminal carman (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s [facility] 12/20/2020 S75.891D Other specified inju ry of other blood vessels at hip and thigh level, right leg, subsequent encounter Balbina Crespo, [facility] 12/20/2020 N39.0 Urinary tract infection, site no t specified Balbina Crespo [facility] 12/20/2020 S75.891D Other specified inju ry of other blood vessels at hip and thigh level, right leg, subsequent encounter [facility] 12/20/2020 R06.02 Shortness of breath Balbina Pearl Frank, [facility] 12/20/2020 E87.6 Hypokalemia Balbina Pearl Frank, [facility] 12/20/2020 Z79.01 residential (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s Balbina Crespo, [facility] 12/20/2020 S41.111A Laceration without f oreign body of right upper arm, initial encounter Balbina Pearl Frank [facility] 12/20/2020 W10.8xxA Fall (on) (from) other stairs an d steps, initial encounter Balbina Pearl Frank, [facility] 12/20/2020 Z23 Encounter for immunization Balbina Frank, [facility] 12/13/2020 Z51.81 Encounter for therapeutic drug l evel monitoring Balbina Crespo, [facility] 12/13/2020 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 Balbina Pearl Zac, [facility] 12/13/2020 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 Balbina Pearl Frank [facility] 12/13/2020 Z79.01 terminal carman (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s Balbina Pearl Frank [facility] 12/13/2020 E83.42 Hypomagnesemia Balbina Crespo [facility] 12/13/2020 J44.1 Chronic obstructive pulmonary disease with (acute) exacerbation Balbina Pearl Zac, [facility] 12/13/2020 Z87.891 Personal history of nicotine dep endence Balbina Pearl Frank, [facility] 12/13/2020 Z51.81 Encounter for therapeutic drug l evel monitoring [facility] 12/13/2020 S75.891D Other specified inju ry of other blood vessels at hip and thigh level, right leg, subsequent encounter Balbina Crespo, [facility] 12/13/2020 Z79.01 residential (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s Balbina Crespo, [facility] 12/13/2020 R79.1 Abnormal coagulation profile Balbina Crespo [facility] 12/13/2020 D72.829 Elevated white blood cell count, unspecified Balbina Crespo [facility] 12/13/2020 Z79.01 residential (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s [facility] 12/13/2020 S75.891D Other specified inju ry of other blood vessels at hip and thigh level, right leg, subsequent encounter [facility] 12/13/2020 Z98.61 Coronary angioplasty status Balbina Crespo, [facility] 12/13/2020 Z95.810 Presence of automatic (implantab le) cardiac defibrillator Balbina Crespo [facility] 12/11/2020 R06.02 Shortness of breath Grady le JR, [place] 12/04/2020 E87.6 Hypokalemia Balbina Crespo [facility] 12/04/2020 E87.6 Hypokalemia Lab Schedule 11/30/2020 Z51.81 Encounter for therapeutic drug l evel monitoring Balbina Crespo, [facility] 11/30/2020 I10 Essential (primary) hypertension Balbina Crespo [facility] 11/30/2020 Z79.01 terminal carman (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s Balbina Crespo [facility] 11/30/2020 Z51.81 Encounter for therapeutic drug l evel monitoring Protime 11/30/2020 S75.891D Other specified inju ry of other blood vessels at hip and thigh level, right leg, subsequent encounter Balbina Crespo [facility] 11/30/2020 Z79.01 residential (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s Protime 11/30/2020 I10 Essential (primary) hypertension Lab Schedule 11/30/2020 S75.891D Other specified inju ry of other blood vessels at hip and thigh level, right leg, subsequent encounter Protime 11/30/2020 E87.6 Hypokalemia Balbina Crespo [facility] 11/30/2020 E87.6 Hypokalemia Lab Schedule 10/25/2020 Z51.81 Encounter for therapeutic drug l evel monitoring Balbina Crespo, [employer] 10/25/2020 Z51.81 Encounter for therapeutic drug l evel monitoring Protime 10/25/2020 Z79.01 terminal carman (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s Balbina Crespo, [facility] 10/25/2020 Z79.01 residential (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s Protime 10/25/2020 S75.891D Other specified inju ry of other blood vessels at hip and thigh level, right leg, subsequent encounter Balbina Crespo, [facility] 10/25/2020 I35.0 Nonrheumatic aortic (valve) sten osis Frederick Tristan, DO 10/25/2020 S75.891D Other specified inju ry of other blood vessels at hip and thigh level, right leg, subsequent encounter Protime 10/25/2020 I25.10 Atherosclerotic heart disease of [place] coronary artery with Frederick Tristan, DO 10/25/2020 I50.22 Chronic systolic (congestive) he art failure Frederick Tristan, DO 10/25/2020 I44.2 Atrioventricular block, complete Frederick Tristan, DO 10/25/2020 I10 Essential (primary) hypertension Frederick Tristan, DO 10/25/2020 Z79.01 terminal carman (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s Frederick Tristan, DO 10/25/2020 Z51.81 Encounter for therapeutic drug l evel monitoring Frederick Tristan, DO 09/11/2020 Z51.81 Encounter for therapeutic drug l evel monitoring Balbina Crespo, [facility] 09/11/2020 Z51.81 Encounter for therapeutic drug l evel monitoring Protime 09/11/2020 Z79.01 residential (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s Balbina Crespo, [facility] 09/11/2020 Z79.01 residential (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s Protime 09/11/2020 S75.891D Other specified inju ry of other blood vessels at hip and thigh level, right leg, subsequent encounter Balbina Crespo, [facility] 09/11/2020 S75.891D Other specified inju ry of other blood vessels at hip and thigh level, right leg, subsequent encounter Protime 09/05/2020 I10 Essential (primary) hypertension Balbina Crespo, [facility] 09/05/2020 Z51.81 Encounter for therapeutic drug l evel monitoring Balbina Crespo, [facility] 09/05/2020 E87.6 Hypokalemia Balbina Crespo, [facility] 09/05/2020 Z51.81 Encounter for therapeutic drug l evel monitoring Protime 09/05/2020 Z79.01 terminal carman (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s Balbina Crespo, [facility] 09/05/2020 Z79.01 terminal carman (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s Protime 09/05/2020 S75.891D Other specified inju ry of other blood vessels at hip and thigh level, right leg, subsequent encounter Balbina Crespo, [facility] 09/05/2020 S75.891D Other specified inju ry of other blood vessels at hip and thigh level, right leg, subsequent encounter Protime 08/28/2020 Z51.81 Encounter for therapeutic drug l evel monitoring Balbina Crespo, [facility] 08/28/2020 Z51.81 Encounter for therapeutic drug l evel monitoring Protime 08/28/2020 Z79.01 terminal carman (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s Balbina Crespo, [facility] 08/28/2020 Z79.01 residential (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s Protime 08/28/2020 S75.891D Other specified inju ry of other blood vessels at hip and thigh level, right leg, subsequent encounter Balbina Crespo [facility] 08/28/2020 S75.891D Other specified inju ry of other blood vessels at hip and thigh level, right leg, subsequent encounter Protime 08/22/2020 Z51.81 Encounter for therapeutic drug l evel monitoring Protime 08/22/2020 Z79.01 terminal carman (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s Protime 08/22/2020 S75.891D Other specified inju ry of other blood vessels at hip and thigh level, right leg, subsequent encounter Protime 08/14/2020 Z51.81 Encounter for therapeutic drug l evel monitoring Balbina Crespo, [facility] 08/14/2020 Z51.81 Encounter for therapeutic drug l evel monitoring Protime 08/14/2020 S75.891D Other specified inju ry of other blood vessels at hip and thigh level, right leg, subsequent encounter Balbina Crespo [facility] 08/14/2020 S75.891D Other specified inju ry of other blood vessels at hip and thigh level, right leg, subsequent encounter Protime 08/14/2020 Z79.01 residential (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s Balbina Crespo [facility] 08/14/2020 Z79.01 residential (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s Protime 08/07/2020 Z51.81 Encounter for therapeutic drug l evel monitoring Balbina Crespo [facility] 08/07/2020 I10 Essential (primary) hypertension NICKY Morris JR 08/07/2020 S75.891D Other specified inju ry of other blood vessels at hip and thigh level, right leg, subsequent encounter Balbina Crespo [facility] 08/07/2020 Z79.01 residential (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s NICKY Morris JR 08/07/2020 E78.00 Pure hypercholesterolemia, unspe cified NICKY Morris JR 08/07/2020 Z51.81 Encounter for therapeutic drug l evel monitoring Protime 08/07/2020 Z79.01 residential (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s Balbina Crespo [facility] 08/07/2020 R01.1 Cardiac murmur, unspecified NICKY Cleveland JR 08/07/2020 S75.891D Other specified inju ry of other blood vessels at hip and thigh level, right leg, subsequent encounter Protime 08/07/2020 I73.9 Peripheral vascular disease, uns pecified NICKY Morris JR 08/07/2020 I25.10 Atherosclerotic heart disease of [place] coronary artery with NICKY Morris JR 08/07/2020 E03.9 Hypothyroidism, unspecified NICKY Cleveland JR 08/07/2020 Z79.01 residential (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s Protime 08/07/2020 I87.2 Venous insufficiency (chronic) ( peripheral) NICKY Morris JR 08/07/2020 J44.9 Chronic obstructive pulmonary di sease, unspecified NICKY Morris JR 08/07/2020 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 NICKY Morris JR 08/07/2020 Z95.5 Presence of coronary angioplasty implant and graft NICKY Morris JR 07/17/2020 Z51.81 Encounter for therapeutic drug l evel monitoring ELENA Lucas 07/17/2020 Z79.01 residential (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s Protime 07/17/2020 Z79.01 residential (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s ELENA Lucas 07/17/2020 S75.891D Other specified inju ry of other blood vessels at hip and thigh level, right leg, subsequent encounter Protime 07/17/2020 S75.891D Other specified inju ry of other blood vessels at hip and thigh level, right leg, subsequent encounter ELENA Lucas Plan of Treatment Future Appointment(s):* 04/09/2021 9:40 am - Sameer Tristan MD at [facility] * 01/19/2021 11:00 am - Jean at [facility] * 02/07/2021 8:00 am - ELENA Lucas at [facility] 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
--- OUTSIDE RECORDS SUMMARY | 2021-01-09 15:41 | CCD | Continuity of Care Document ---
Author Author Yovany Tristan MD Organization Unknown Address [address] [facility] [address] [place] [address] Phone [phone] Care Team Providers Care Business Services Representative Name Role Phone Sameer Tristan JR, MD AUTM Unavailable Nicolas Albert MD AUTM [phone] Dick Medina MD AUTM [phone] Servando Collins MD AUTM [phone] Clara Lagunas OD AUTM Unavailable Renetta Swanson MD AUTM [phone] Brenda Mcgraw AUTM [phone] Problems Active Problems Provider Date Anticoagulants [employer] (Current) Use O nset: 01/25/1997 Injury Blood [...] Of Flu Vaccine Inj ection Balbina Crespo [facility] 12/20/2020 Immunization Adminstration,1 Vaccine/Tox oid Injection Balbina Crespo [facility] 12/20/2020 Covid-19 vaccine, Unspecified Inj ection [...] CPT Code Status Date Vaccine Lot # 00813 Given 12/20/2020 Adacel- Tetanus Diphtheria P ertussis [id number] Given 12/20/2020 Influenza Vaccin e Quadrivalent Preser/Antibiotic Free Im Use 31607 Given 12/20/2020 Influenza Vaccin e Quadrivalent Preser/Antibiotic Free Im Use [id number] 47854 Given 12/20/2020 Adacel- Tetanus Diphtheria P ertussis 94726 Given 12/29/2019 Influenza Vaccin e Quadrivalent Preser/Antibiotic Free Im Use 14114 Given 12/28/2018 Influenza Vaccin e Quadrivalent Preser/Antibiotic Free Im Use [id number] 66371 Given 01/05/2018 Influenza Virus Vaccine, Quadrivalent (Cciiv4), Derived From 2 Given 12/02/2017 Shingrix U-Td Given 10/28/2017 Td(Adult)(Tetanus, Diphtheri a) unspecified 98513 Given 09/09/2017 Shingrix 24399 Given 01/01/2017 Influenza Vaccin e Quadrivalent Preser/Antibiotic Free Im Use 420267 Q2037 Given 01/16/2016 Fluvirin Virus Vaccine 70471 01 Q2037 Given 12/23/2014 Fluvirin Virus Vaccine 75195 01 34484 Given 04/29/2014 Prevnar 13 [id number] Q2037 Given 01/12/2014 Fluvirin Virus Vaccine 59643 01 30419 Given 01/23/2007 Pneumovax 23 56437 Given 08/20/2005 Tetanus/Diptheria(Td)Toxoids Preservative Free 98802 Given 07/26/1997 Pneumovax 23 [id number] Refused 12/20/2011 [...] H/L Range Note Laboratory test finding 01/05/2021 [facility] Engine Lathe Operator: [place] [address] [phone] Magnesium 2.1 mg/dL 1.8 - 2.4 Comprehensive Chem Profile 01/05/2021 [facility]che[facility] Engine Lathe Operator: [place] [address] [phone] Glucose 100 mg/dL High 74 - 99 [...] 60 mL/min >60 2 Lipid Profile 01/05/2021 [facility] , Engine Lathe Operator: [place] [address] [phone] Cholesterol 133 mg/dL 131 - 200 Triglycerides 85 mg/dL 30 - 150 HDL Cholesterol 47 mg/dL 35 - 60 LDL (Calculated) 69 CALC 50 - 159 Laboratory test finding 01/05/2021 [facility] Engine Lathe Operator: [place] [address] [phone] Thyroid Stimulating Hormone 4.53 uIU/mL High 0.3 6 - 3.74 Complete Blood Count 01/05/2021 [facility] Ness Engine Lathe Operator: [place] [address] [phone] WBC 9.1 x10*3/UL 4.1 - 10.9 RBC [...] Wi-Inr Inr 1.9 Basic Metabolic Panel 12/20/2020 [facility] Engine Lathe Operator: [place] [address] [phone] Glucose 108 mg/dL High 74 - 99 [...] Low >60 4 Ua Dipstick Only 12/20/2020 [facility] Engine Lathe Operator: [place] [address] [phone] Urine Color YELLOW Yellow Urine Appearance CLOUDY Abnormal Clear Urine PH 6.0 units 5.0 - 9.0 Urine Specific [place] 1.010 1.005 - 1.030 Urine Leukocytes LARGE Abnormal Negative Urine Blood SMALL Abnormal Negative Urine Protein 1+ Abnormal Negative -Trace Urine Glucose NEGATIVE mg/dL Negative Urine Nitrite POSITIVE Abnormal Negative Urine Ketone NEGATIVE mg/dL Negative Urine Bilirubin NEGATIVE Negative Urine Urobilinogen 0.2 mg/dL 0.2 - 1.0 Laboratory test finding 12/20/2020 [facility] [address] [place] [address] [phone] Urine Culture FULL REPORT IN L <SEE NOTE> Normal 5 Complete Blood Count 12/20/2020 [facility] Engine Lathe Operator: [place] [address] [phone] WBC 11.6 x10*3/UL High 4.1 - 10.9 [...] Wi-Inr Inr 4.8 Complete Blood Count 12/13/2020 [facility] Engine Lathe Operator: [place] [address] [phone] WBC 14.4 x10*3/UL High 4.1 - 10.9 [...] 2.0 - 7.8 Basic Metabolic Panel 12/13/2020 [facility] Engine Lathe Operator: Dr Sameer [place]istan [place] [address] [phone] Glucose 120 mg/dL High 74 - 99 [...] mL/min >60 9 Laboratory test finding 12/13/2020 [facility], Engine Lathe Operator: Dr Samere Tristan [place] [address] [phone] Magnesium 1.5 mg/dL Low 1.8 - 2.4 Laboratory test finding 12/04/2020 [facility], Engine Lathe Operator: Dr Sameer Tristan [place] [address] [phone] Potassium 3.9 mEq/L 3.5 - 5.1 Basic Metabolic Panel 11/30/2020 [facility] Engine Lathe Operator: Dr Sameer Tristan [place] [address] [phone] Glucose 94 mg/dL 74 - 99 10 [...] Wi-Inr Inr 3.1 Laboratory test finding 11/30/2020 [facility] quintero Engine Lathe Operator: [place] [address] [phone] Magnesium 1.3 mg/dL Low 1.8 - 2.4 Complete Blood Count 10/25/2020 [facility] Ness Engine Lathe Operator: [place] [address] [phone] WBC 10.3 x10*3/UL 4.1 - 10.9 RBC [...] 2.0 - 7.8 Comprehensive Chem Profile 10/25/2020 [facility] Engine Lathe Operator: [place] [address] [phone] Glucose 100 mg/dL High 74 - 99 [...] Wi-Inr Inr 3.4 Complete Blood Count 09/05/2020 [facility] Engine Lathe Operator: [place] [address] [phone] WBC 12.1 x10*3/UL High 4.1 - 10.9 [...] 2.0 - 7.8 Basic Metabolic Panel 09/05/2020 [facility] Engine Lathe Operator: [place] [address] [phone] Glucose 108 mg/dL High 74 - 99 [...] mL/min >60 17 Laboratory test finding 09/05/2020 [facility] Engine Lathe Operator: Dr Sameer Tristan [place], [place] [address] [phone] Magnesium 1.6 mg/dL Low 1.8 - 2.4 Laboratory test finding 08/28/2020 [facility] 3.7 Laboratory test finding 08/22/2020 [facility] 4.1 Laboratory test finding 08/14/2020 [facility] 3.9 Laboratory test finding 08/07/2020 [facility] 1.5 Complete Blood Count 08/07/2020 [facility] Engine Lathe Operator: Dr Sameer [place]istan [place] [address] [phone] WBC 10.6 x10*3/UL 4.1 - 10.9 RBC [...] 2.0 - 7.8 Basic Metabolic Panel 08/07/2020 [facility] Engine Lathe Operator: [place] [address] [phone] Glucose 103 mg/dL High 74 - 99 [...] mL/min >60 20 Coronavirus 2019 Nasopharygeal 07/28/[address] [address] [phone] Coronavirus 2019 Nasopharygeal ASSAY INFORMATIO <SEE N OTE> 21 Laboratory test finding 07/17/2020 Wi-In[facility] Inr 3.2 Coronavirus 2019 Nasopharygeal 07/15/[address] [address] [phone] Coronavirus 2019 Nasopharygeal ASSAY INFORMATIO <SEE N OTE> 22 1 100-125 mg/dL PRE-DIABET ES/FASTING >126 mg/dL DIABETES/FASTING 2 CHRONIC KIDNEY DISEASE STAGI NG PER NKF STAGE I & II GFR >= 60 NORMAL TO MILDLY DECREASED STAGE III GFR 30-59 MODERATELY DECREASED STAGE IV GFR 15-29 SEVERELY DECREASED STAGE V GFR <15 VERY LITTLE GFR LEFT ESRD GFR <15 ON LEPIDOPTERIST 3 100-125 mg/dL PRE-DIABET ES/FASTING >126 mg/dL DIABETES/FASTING 4 CHRONIC KIDNEY DISEASE STAGI NG PER NKF STAGE I & II GFR >= 60 NORMAL TO MILDLY DECREASED STAGE III GFR 30-59 MODERATELY DECREASED STAGE IV GFR 15-29 SEVERELY DECREASED STAGE V GFR <15 VERY LITTLE GFR LEFT ESRD GFR <15 ON LEPIDOPTERIST 5 FULL REPORT IN LAB NOTES (eC [...] LITTLE GFR LEFT ESRD GFR <15 ON LEPIDOPTERIST 10 100-125 mg/dL PRE-DIABET ES/FASTING >126 mg/dL DIABETES/FASTING 11 NOTE: RESULT VERIFIED. 12 CHRONIC KIDNEY DISEASE STAGI NG PER NKF STAGE I & II GFR >= 60 NORMAL TO MILDLY DECREASED STAGE III GFR 30-59 MODERATELY DECREASED STAGE IV GFR 15-29 SEVERELY DECREASED STAGE V GFR <15 VERY LITTLE GFR LEFT ESRD GFR <15 ON LEPIDOPTERIST 13 100-125 mg/dL PRE-DIABET ES/FASTING >126 mg/dL DIABETES/FASTING 14 CHRONIC KIDNEY DISEASE STAGI NG PER NKF STAGE I & II GFR >= 60 NORMAL TO MILDLY DECREASED STAGE III GFR 30-59 MODERATELY DECREASED STAGE IV GFR 15-29 SEVERELY DECREASED STAGE V GFR <15 VERY LITTLE GFR LEFT ESRD GFR <15 ON LEPIDOPTERIST 15 NOTE: RESULT VERIFIED. 16 100-125 mg/dL PRE-DIABET ES/FASTING >126 mg/dL DIABETES/FASTING 17 CHRONIC KIDNEY DISEASE STAGI NG PER NKF STAGE I & II GFR >= 60 NORMAL TO MILDLY DECREASED STAGE III GFR 30-59 MODERATELY DECREASED STAGE IV GFR 15-29 SEVERELY DECREASED STAGE V GFR <15 VERY LITTLE GFR LEFT ESRD GFR <15 ON LEPIDOPTERIST 18 100-125 mg/dL PRE-DIABET ES/FASTING >126 mg/dL DIABETES/FASTING 19 NOTE: RESULT VERIFIED. 20 CHRONIC KIDNEY DISEASE STAGI NG PER NKF STAGE I & II GFR >= 60 NORMAL TO MILDLY DECREASED STAGE III GFR 30-59 MODERATELY DECREASED STAGE IV GFR 15-29 SEVERELY DECREASED STAGE V GFR <15 VERY LITTLE GFR LEFT ESRD GFR <15 ON LEPIDOPTERIST 21 ASSAY INFORMATION: Real Time RT-PCR NOTE: The COVID-19 assay has been cleared by the U.S. Food and Drug Administration under the Emergency Use Authorization (EUA). [facility] and [facility] are designated as high complexity laboratories by the Clinical Laboratory Improvement Amendments of 1988(CLIA) and are qualified to perform this test. Not Detected 22 ASSAY INFORMATION: Real Time RT-PCR NOTE: The COVID-19 assay has been cleared by the U.S. Food and Drug Administration under the Emergency Use Authorization (EUA). [facility] and [facility] are designated as high complexity laboratories by the Clinical Laboratory Improvement Amendments of 1988(CLIA) and are qualified to perform this test. Not Detected Procedures Date Code Description Status 01/03/2021 80439 Office/Outpatient Established Lo w MDM 20-29 Min Completed 12/20/2020 19164 Office/Outpatient Established Lo w MDM 20-29 Min Completed 12/13/2020 12264 Office/Outpatient Established Mo d MDM 30-39 Min Completed 12/13/2020 78570 Office/Outpatient Established Mo d MDM 30-39 Min Completed 12/13/2020 06086 EKG/Interpretation & Report Comp leted 12/13/2020 68399 EKG/Interpretation & Report Comp leted 10/25/2020 51223 Office/Outpatient Established Mo d MDM 30-39 Min Completed 08/07/2020 28723 Office/Outpatient Established Mo d MDM 30-39 Min Completed 10/06/2013 [id number] Colonoscopy Completed 06/16/2006 [id number] Colonoscopy Completed 12/12/2005 [id number] Mammogram Completed Medical Devices Description No Information Available Encounters Type Date Location Provider Dx Diagnosis Office Visit 01/03/2021 11:40a [facility] 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 Balbina Vincent ne, PUBLIC OPINION SURVEY TAKER N39.0 Urinary tract infection, site not specif ied R06.02 Shortness of breath E87.6 Hypokalemia Z79.01 [facility] (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s S41.111A Laceration w/o foreign body of right upper arm, init encntr W10.8xxA Fall (on) (from) other stair s and steps, initial encounter Z23 Encounter for immunization Office Visit 12/13/2020 3:20p [facility] 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 Chr ismilton Tristan, DO I35.0 Nonrheumatic aortic (valve) stenosis 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 I50.22 Chronic systolic (congestive ) heart failure I44.2 Atrioventricular block, comp lete I10 Essential (primary) hyperten mena Z79.01 long term acute care 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s Z51.[address] estrada level monitoring Office Visit 08/07/2020 8:40a [facility] 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 Sameer Tristan MD 01/05/2021 Z95.5 Presence of coronary angioplasty implant and graft Sameer Tristan MD 01/05/2021 E87.6 Hypokalemia Sameer chapman MD 01/05/2021 F41.9 Anxiety disorder, unspecified Co tamia Tristan MD 01/05/2021 I35.0 Nonrheumatic aortic (valve) sten osis Sameer Tristan MD 01/05/2021 Z95.0 Presence of cardiac pacemaker Co tamia Tristan MD 01/03/2021 J43.2 Centrilobular emphysema Balbina Caballero, [facility] 01/03/2021 F41.9 Anxiety disorder, unspecified An n Pearl Zac [facility] 01/03/2021 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 Balbina Crespo [facility] 01/03/2021 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 Balbina Crespo [facility] 01/03/2021 Z51.81 Encounter for therapeutic drug l evel monitoring Protime 01/03/2021 Z79.01 intermediate accountant (current) drug use for prophylactic purposes Balbina Crespo [facility] 01/03/2021 S75.891D Other specified inju ry of other blood vessels at hip and thigh level, right leg, subsequent encounter Protime 12/27/2020 S75.891D Other specified inju ry of other blood vessels at hip and thigh level, right leg, subsequent encounter Balbina Crespo [facility] 12/27/2020 S75.891D Other specified inju ry of other blood vessels at hip and thigh level, right leg, subsequent encounter Protime 12/27/2020 Z79.01 [facility] (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s Balbina Crespo [facility] 12/27/2020 Z79.01 long term acute care 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s Protime 12/27/2020 Z51.81 Encounter for therapeutic drug l evel monitoring Balbina Crespo [facility] 12/27/2020 Z51.81 Encounter for therapeutic drug l evel monitoring Protime 12/20/2020 Z51.81 Encounter for therapeutic drug l evel monitoring Balbina Crespo [facility] 12/20/2020 Z51.81 Encounter for therapeutic drug l evel monitoring Protime 12/20/2020 Z79.01 long term acute care 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s Balbina Crespo, [facility] 12/20/2020 Z79.01 long term acute care 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s [facility] 12/20/2020 S75.891D Other specified inju ry of other blood vessels at hip and thigh level, right leg, subsequent encounter Balbina Crespo, [facility] 12/20/2020 N39.0 Urinary tract infection, site no t specified Balbina Crespo [facility] 12/20/2020 S75.891D Other specified inju ry of other blood vessels at hip and thigh level, right leg, subsequent encounter [facility] 12/20/2020 R06.02 Shortness of breath Balbina Pearl Frank, [facility] 12/20/2020 E87.6 Hypokalemia Balbina Pearl Frank, [facility] 12/20/2020 Z79.01 [facility] (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s Balbina Crespo, [facility] 12/20/2020 S41.111A Laceration without f oreign body of right upper arm, initial encounter Balbina Pearl Frank [facility] 12/20/2020 W10.8xxA Fall (on) (from) other stairs an d steps, initial encounter Balbina Paerl Frank, [facility] 12/20/2020 Z23 Encounter for immunization Balbina Frank, [facility] 12/13/2020 Z51.81 Encounter for therapeutic drug l evel monitoring Balbina Crespo, [facility] 12/13/2020 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 Balbina Pearl Zac, [facility] 12/13/2020 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 Balbina Pearl Frank [facility] 12/13/2020 Z79.01 long term acute care 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s Balbina Pearl Frank [facility] 12/13/2020 E83.42 Hypomagnesemia Balbina Crespo [facility] 12/13/2020 J44.1 Chronic obstructive pulmonary disease with (acute) exacerbation Balbina Pearl Zac, [facility] 12/13/2020 Z87.891 Personal history of nicotine dep endence Balbina Pearl Frank, [facility] 12/13/2020 Z51.81 Encounter for therapeutic drug l evel monitoring [facility] 12/13/2020 S75.891D Other specified inju ry of other blood vessels at hip and thigh level, right leg, subsequent encounter Balbina Crespo, [facility] 12/13/2020 Z79.01 [facility] (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s Balbina Crespo, [facility] 12/13/2020 R79.1 Abnormal coagulation profile Balbina Crespo [facility] 12/13/2020 D72.829 Elevated white blood cell count, unspecified Balbina Crespo [facility] 12/13/2020 Z79.01 [facility] (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s Protime 12/13/2020 S75.891D Other specified inju ry of other blood vessels at hip and thigh level, right leg, subsequent encounter Protime 12/13/2020 Z98.61 Coronary angioplasty status Balbina Crespo, [facility] 12/13/2020 Z95.810 Presence of automatic (implantab le) cardiac defibrillator Balbina Crespo [facility] 12/11/2020 R06.02 Shortness of breath Grady le JR, PA 12/04/2020 E87.6 Hypokalemia Balbina Crespo [facility] 12/04/2020 E87.6 Hypokalemia Lab Schedule 11/30/2020 Z51.81 Encounter for therapeutic drug l evel monitoring Balbina Crespo, [facility] 11/30/2020 I10 Essential (primary) hypertension Balbina Crespo [facility] 11/30/2020 Z79.01 long term acute care 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s Balbina Crespo [facility] 11/30/2020 Z51.81 Encounter for therapeutic drug l evel monitoring Protime 11/30/2020 S75.891D Other specified inju ry of other blood vessels at hip and thigh level, right leg, subsequent encounter Balbina Crespo [facility] 11/30/2020 Z79.01 [facility] (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s Protime 11/30/2020 I10 Essential (primary) hypertension Lab Schedule 11/30/2020 S75.891D Other specified inju ry of other blood vessels at hip and thigh level, right leg, subsequent encounter Protime 11/30/2020 E87.6 Hypokalemia Balbina Crespo [facility] 11/30/2020 E87.6 Hypokalemia Lab Schedule 10/25/2020 Z51.81 Encounter for therapeutic drug l evel monitoring Balbina Crespo, [employer]Y TAKER 10/25/2020 Z51.81 Encounter for therapeutic drug l evel monitoring Protime 10/25/2020 Z79.01 long term acute care 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s Balbina Crespo, [facility] 10/25/2020 Z79.01 [facility] (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s Protime 10/25/2020 S75.891D Other specified inju ry of other blood vessels at hip and thigh level, right leg, subsequent encounter Balbina Crespo, [facility] 10/25/2020 I35.0 Nonrheumatic aortic (valve) sten osis Frederick Tristan, DO 10/25/2020 S75.891D Other specified inju ry of other blood vessels at hip and thigh level, right leg, subsequent encounter Protime 10/25/2020 I25.10 Atherosclerotic heart disease of [place] coronary artery with Frederick Tristan, DO 10/25/2020 I50.22 Chronic systolic (congestive) he art failure Frederick Tristan, DO 10/25/2020 I44.2 Atrioventricular block, complete Frederick Tristan, DO 10/25/2020 I10 Essential (primary) hypertension Frederick Tristan, DO 10/25/2020 Z79.01 long term acute care 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s Frederick Tristan, DO 10/25/2020 Z51.81 Encounter for therapeutic drug l evel monitoring Frederick Tristan, DO 09/11/2020 Z51.81 Encounter for therapeutic drug l evel monitoring Balbina Crespo, [facility] 09/11/2020 Z51.81 Encounter for therapeutic drug l evel monitoring Protime 09/11/2020 Z79.01 [facility] (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s Balbina Crespo, [facility] 09/11/2020 Z79.01 [facility] (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s Protime 09/11/2020 S75.891D Other specified inju ry of other blood vessels at hip and thigh level, right leg, subsequent encounter Balbina Crespo, [facility] 09/11/2020 S75.891D Other specified inju ry of other blood vessels at hip and thigh level, right leg, subsequent encounter Protime 09/05/2020 I10 Essential (primary) hypertension Balbina Crespo, [facility] 09/05/2020 Z51.81 Encounter for therapeutic drug l evel monitoring Balbina Crespo, [facility] 09/05/2020 E87.6 Hypokalemia Balbina Crespo, [facility] 09/05/2020 Z51.81 Encounter for therapeutic drug l evel monitoring Protime 09/05/2020 Z79.01 long term acute care 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s Balbina Crespo, [facility] 09/05/2020 Z79.01 long term acute care 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s Protime 09/05/2020 S75.891D Other specified inju ry of other blood vessels at hip and thigh level, right leg, subsequent encounter Balbina Crespo, [facility] 09/05/2020 S75.891D Other specified inju ry of other blood vessels at hip and thigh level, right leg, subsequent encounter Protime 08/28/2020 Z51.81 Encounter for therapeutic drug l evel monitoring Balbina Crespo, [facility] 08/28/2020 Z51.81 Encounter for therapeutic drug l evel monitoring Protime 08/28/2020 Z79.01 long term acute care 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s Balbina Crespo, [facility] 08/28/2020 Z79.01 [facility] (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s Protime 08/28/2020 S75.891D Other specified inju ry of other blood vessels at hip and thigh level, right leg, subsequent encounter Balbina Crespo [facility] 08/28/2020 S75.891D Other specified inju ry of other blood vessels at hip and thigh level, right leg, subsequent encounter Protime 08/22/2020 Z51.81 Encounter for therapeutic drug l evel monitoring Protime 08/22/2020 Z79.01 long term acute care 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s Protime 08/22/2020 S75.891D Other specified inju ry of other blood vessels at hip and thigh level, right leg, subsequent encounter Protime 08/14/2020 Z51.81 Encounter for therapeutic drug l evel monitoring Balbina Crespo, [facility] 08/14/2020 Z51.81 Encounter for therapeutic drug l evel monitoring Protime 08/14/2020 S75.891D Other specified inju ry of other blood vessels at hip and thigh level, right leg, subsequent encounter Balbina Crespo [facility] 08/14/2020 S75.891D Other specified inju ry of other blood vessels at hip and thigh level, right leg, subsequent encounter Protime 08/14/2020 Z79.01 [facility] (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s Balbina Crespo [facility] 08/14/2020 Z79.01 [facility] (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s Protime 08/07/2020 Z51.81 Encounter for therapeutic drug l evel monitoring Balbina Crespo [facility] 08/07/2020 I10 Essential (primary) hypertension NICKY Morris JR 08/07/2020 S75.891D Other specified inju ry of other blood vessels at hip and thigh level, right leg, subsequent encounter Balbina Crespo [facility] 08/07/2020 Z79.01 [facility] (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s NICKY Morris JR 08/07/2020 E78.00 Pure hypercholesterolemia, unspe cified NICKY Morris JR 08/07/2020 Z51.81 Encounter for therapeutic drug l evel monitoring [facility] 08/07/2020 Z79.01 [facility] (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s Balbina Crespo [facility] 08/07/2020 R01.1 Cardiac murmur, unspecified NICKY [place] JR 08/07/2020 S75.891D Other specified inju ry of other blood vessels at hip and thigh level, right leg, subsequent encounter [facility] 08/07/2020 I73.9 Peripheral vascular disease, uns pecified NICKY Morris JR 08/07/2020 I25.10 Atherosclerotic heart disease of [place] coronary artery with NICKY Morris JR 08/07/2020 E03.9 Hypothyroidism, unspecified NICKY [place] JR 08/07/2020 Z79.01 [facility] (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s [facility] 08/07/2020 [...] l evel monitoring ELENA Lucas 07/17/2020 Z79.01 [facility] (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s [facility] 07/17/2020 Z79.01 [facility] (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s ELENA Lucas 07/17/2020 S75.891D Other specified inju ry of other blood vessels at hip and thigh level, right leg, subsequent encounter [facility] 07/17/2020 S75.891D Other specified inju ry of other blood vessels at hip and thigh level, right leg, subsequent encounter ELENA Lucas Plan of Treatment Future Appointment(s):* 04/09/2021 9:40 am - Sameer Tristan MD at [facility] * 01/19/2021 11:00 am - Jean at [facility] * 02/07/2021 8:00 am - ELENA Lucas at [facility] 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
--- OUTSIDE RECORDS SUMMARY | 2021-01-09 15:41 | CCD | Continuity of Care Document ---
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 O nset: 01/25/1997 Injury Blood [...] one every 12 hours 14caps N39.0 Balbina Crespo, [facility] 12/20 - 12/20/2020 Medications Administered in Office Medication SIG Qnty Indications Ordering Provider Date Administration Of Flu Vaccine Inj ection Balbina Crespo [facility] 12/20/2020 Immunization Adminstration,1 Vaccine/Tox oid Injection Balbina Crespo [facility] 12/20/2020 Covid-19 vaccine, Unspecified Inj ection Unknown 07/26/2020 Covid-19 vaccine, Unspecified Inj ection Unknown 06/24/2020 Administration Of Flu Vaccine Inj ection Sameer Tristan MD 12/29/2019 Administration Of Flu Vaccine [...] CPT Code Status Date Vaccine Lot # [id number] Given 12/20/2020 Adacel- Tetanus Diphtheria P ertussis [id number] 82988 Given 12/20/2020 Influenza Vaccin e Quadrivalent Preser/Antibiotic Free Im Use 70802 Given 12/20/2020 Influenza Vaccin e Quadrivalent Preser/Antibiotic Free Im Use 560353 62359 Given 12/20/2020 Adacel- Tetanus Diphtheria P ertussis 97644 Given 12/29/2019 Influenza Vaccin e Quadrivalent Preser/Antibiotic Free [place] Use 34080 Given 12/28/2018 Influenza Vaccin e Quadrivalent Preser/Antibiotic Free Im Use 587397 02963 Given 01/05/2018 Influenza Virus Vaccine, Quadrivalent ([id number]), Derived From 9 Given 12/02/2017 Shingrix U-Td Given 10/28/2017 Td(Adult)(Tetanus, Diphtheri a) unspecified 79634 Given 09/09/2017 Shingrix 14735 Given 01/01/2017 Influenza Vaccin e Quadrivalent Preser/Antibiotic Free Im Use 097099 Q2037 Given 01/16/2016 Fluvirin Virus Vaccine 51164 01 Q2037 Given 12/23/2014 Fluvirin Virus Vaccine 91885 01 26683 Given 04/29/2014 Prevnar 13 [id number] Q2037 Given 01/12/2014 Fluvirin Virus Vaccine 57848 01 12412 Given 01/23/2007 Pneumovax 23 95421 Given 08/20/2005 Tetanus/Diptheria(Td)Toxoids Preservative Free 46456 Given 07/26/1997 Pneumovax 23 [id number] Refused 12/20/2011 [...] H/L Range Note Laboratory test finding 01/05/2021 [facility] Petroleum Supply Specialist: Dr Sameer Tristan [place], [place] [id number] [phone] Magnesium 2.1 mg/dL 1.8 - 2.4 Comprehensive Chem Profile 01/05/2021 [facility] Echevarria Petroleum Supply Specialist: [place] [address] [phone] Glucose 100 mg/dL High 74 - 99 [...] 60 mL/min >60 2 Lipid Profile 01/05/2021 [facility] , Petroleum Supply Specialist: Dr Sameer Tristan [place], [place] [id number] [phone] Cholesterol 133 mg/dL 131 - 200 Triglycerides 85 mg/dL 30 - 150 HDL Cholesterol 47 mg/dL 35 - 60 LDL (Calculated) 69 CALC 50 - 159 Laboratory test finding 01/05/2021 [facility] Petroleum Supply Specialist: [place] [address] [phone] Thyroid Stimulating Hormone 4.53 uIU/mL High 0.3 6 - 3.74 Complete Blood Count 01/05/2021 [facility] Petroleum Supply Specialist: [place] [address] [phone] WBC 9.1 x10*3/UL 4.1 - 10.9 RBC [...] Wi-Inr Inr 1.9 Basic Metabolic Panel 12/20/2020 [facility] Petroleum Supply Specialist: [place] [address] [phone] Glucose 108 mg/dL High 74 - 99 [...] Low >60 4 Ua Dipstick Only 12/20/2020 [facility] Petroleum Supply Specialist: [place] [address] [phone] Urine Color YELLOW Yellow Urine Appearance CLOUDY Abnormal Clear Urine PH 6.0 units 5.0 - 9.0 Urine Specific [place] 1.010 1.005 - 1.030 Urine Leukocytes LARGE Abnormal Negative Urine Blood SMALL Abnormal Negative Urine Protein 1+ Abnormal Negative -Trace Urine Glucose NEGATIVE mg/dL Negative Urine Nitrite POSITIVE Abnormal Negative Urine Ketone NEGATIVE mg/dL Negative Urine Bilirubin NEGATIVE Negative Urine Urobilinogen 0.2 mg/dL 0.2 - 1.0 Laboratory test finding 12/20/2020 [facility] [address] [place] [address] [phone] Urine Culture FULL REPORT IN L <SEE NOTE> Normal 5 Complete Blood Count 12/20/[address] [facility] [address] [facility] l[facility] quezada Petroleum Supply Specialist: [place] [address] [phone] WBC 11.6 x10*3/UL High 4.1 - 10.9 [...] Wi-Inr Inr 4.8 Complete Blood Count 12/13/[address] [facility] [address] [facility] Petroleum Supply Specialist: [place] [address] [phone] WBC 14.4 x10*3/UL High 4.1 - 10.9 [...] 2.0 - 7.8 Basic Metabolic Panel 12/13/2020 [facility], Petroleum Supply Specialist: [place] [address] [phone] Glucose 120 mg/dL High 74 - 99 [...] mL/min >60 9 Laboratory test finding 12/13/2020 [facility], Petroleum Supply Specialist: Dr [place]er [place], [place] [address] [phone] Magnesium 1.5 mg/dL Low 1.8 - 2.4 Laboratory test finding [facility]04[facility] [place] [address] [phone] Potassium 3.9 mEq/L 3.5 - 5.1 Basic Metabolic Panel 11/30/2020 [facility] Petroleum Supply Specialist: Dr Sameer [place], [place] [address] [phone] Glucose 94 mg/dL 74 - 99 10 [...] Wi-Inr Inr 3.1 Laboratory test finding 11/30/2020 [facility] l[facility] quintero Petroleum Supply Specialist: [place] [address] [phone] Magnesium 1.3 mg/dL Low 1.8 - 2.4 Complete Blood Count 10/25/2020 [facility] Ness Petroleum Supply Specialist: [place] [address] [phone] WBC 10.3 x10*3/UL 4.1 - 10.9 RBC [...] 2.0 - 7.8 Comprehensive Chem Profile 10/25/2020 [facility] Eche[facility] Petroleum Supply Specialist: [place] [address] [phone] Glucose 100 mg/dL High 74 - 99 [...] Wi-Inr Inr 3.4 Complete Blood Count 09/05/[address] [facility] Petroleum Supply Specialist: [place] [address] [phone] WBC 12.1 x10*3/UL High 4.1 - 10.9 [...] 2.0 - 7.8 Basic Metabolic Panel 09/05/2020 [facility] Petroleum Supply Specialist: [place] [address] [phone] Glucose 108 mg/dL High 74 - 99 [...] mL/min >60 17 Laboratory test finding 09/05/2020 [facility] Petroleum Supply Specialist: [place] [address] [phone] Magnesium 1.6 mg/dL Low 1.8 - 2.4 Laboratory test finding 08/28/2020 [facility] 3.7 Laboratory test finding 08/22/2020 [facility] 4.1 Laboratory test finding 08/14/2020 [facility] 3.9 Laboratory test finding 08/07/2020 [facility]-In[facility] Inr 1.5 Complete Blood Count 08/07/[address] [facility] Petroleum Supply Specialist: [place] [address] [phone] WBC 10.6 x10*3/UL 4.1 - 10.9 RBC [...] 2.0 - 7.8 Basic Metabolic Panel 08/07/2020 [facility] Petroleum Supply Specialist: [place] [address] [phone] Glucose 103 mg/dL High 74 - 99 [...] mL/min >60 20 Coronavirus 2019 Nasopharygeal 07/28/[address] [address] [phone] Coronavirus 2019 Nasopharygeal ASSAY INFORMATIO <SEE N OTE> 21 Laboratory test finding 07/17/2020 Wi-Inr Inr 3.2 Coronavirus 2019 Nasopharygeal 07/15/[address] [address] [phone] Coronavirus 2019 Nasopharygeal ASSAY INFORMATIO <SEE N OTE> 22 1 100-125 mg/dL PRE-DIABET ES/FASTING >126 mg/dL DIABETES/FASTING 2 CHRONIC KIDNEY DISEASE STAGI NG PER NKF STAGE I & II GFR >= 60 NORMAL TO MILDLY DECREASED STAGE III GFR 30-59 MODERATELY DECREASED STAGE IV GFR 15-29 SEVERELY DECREASED STAGE V GFR <15 VERY LITTLE GFR LEFT ESRD GFR <15 ON BOOKING POLICE OFFICER 3 100-125 mg/dL PRE-DIABET ES/FASTING >126 mg/dL DIABETES/FASTING 4 CHRONIC KIDNEY DISEASE STAGI NG PER NKF STAGE I & II GFR >= 60 NORMAL TO MILDLY DECREASED STAGE III GFR 30-59 MODERATELY DECREASED STAGE IV GFR 15-29 SEVERELY DECREASED STAGE V GFR <15 VERY LITTLE GFR LEFT ESRD GFR <15 ON BOOKING POLICE OFFICER 5 FULL REPORT IN LAB NOTES (eC [...] LITTLE GFR LEFT ESRD GFR <15 ON BOOKING POLICE OFFICER 10 100-125 mg/dL PRE-DIABET ES/FASTING >126 mg/dL DIABETES/FASTING 11 NOTE: RESULT VERIFIED. 12 CHRONIC KIDNEY DISEASE STAGI NG PER NKF STAGE I & II GFR >= 60 NORMAL TO MILDLY DECREASED STAGE III GFR 30-59 MODERATELY DECREASED STAGE IV GFR 15-29 SEVERELY DECREASED STAGE V GFR <15 VERY LITTLE GFR LEFT ESRD GFR <15 ON BOOKING POLICE OFFICER 13 100-125 mg/dL PRE-DIABET ES/FASTING >126 mg/dL DIABETES/FASTING 14 CHRONIC KIDNEY DISEASE STAGI NG PER NKF STAGE I & II GFR >= 60 NORMAL TO MILDLY DECREASED STAGE III GFR 30-59 MODERATELY DECREASED STAGE IV GFR 15-29 SEVERELY DECREASED STAGE V GFR <15 VERY LITTLE GFR LEFT ESRD GFR <15 ON BOOKING POLICE OFFICER 15 NOTE: RESULT VERIFIED. 16 100-125 mg/dL PRE-DIABET ES/FASTING >126 mg/dL DIABETES/FASTING 17 CHRONIC KIDNEY DISEASE STAGI NG PER NKF STAGE I & II GFR >= 60 NORMAL TO MILDLY DECREASED STAGE III GFR 30-59 MODERATELY DECREASED STAGE IV GFR 15-29 SEVERELY DECREASED STAGE V GFR <15 VERY LITTLE GFR LEFT ESRD GFR <15 ON BOOKING POLICE OFFICER 18 100-125 mg/dL PRE-DIABET ES/FASTING >126 mg/dL DIABETES/FASTING 19 NOTE: RESULT VERIFIED. 20 CHRONIC KIDNEY DISEASE STAGI NG PER NKF STAGE I & II GFR >= 60 NORMAL TO MILDLY DECREASED STAGE III GFR 30-59 MODERATELY DECREASED STAGE IV GFR 15-29 SEVERELY DECREASED STAGE V GFR <15 VERY LITTLE GFR LEFT ESRD GFR <15 ON BOOKING POLICE OFFICER 21 ASSAY INFORMATION: Real Time RT-PCR NOTE: The COVID-19 assay has been cleared by the U.S. Food and Drug Administration under the Emergency Use Authorization (EUA). [facility] and [facility] are designated as high complexity laboratories by the Clinical Laboratory Improvement Amendments of 1988(CLIA) and are qualified to perform this test. Not Detected 22 ASSAY INFORMATION: Real Time RT-PCR NOTE: The COVID-19 assay has been cleared by the U.S. Food and Drug Administration under the Emergency Use Authorization (EUA). [facility] and [facility] are designated as high complexity laboratories by the Clinical Laboratory Improvement Amendments of 1988(CLIA) and are qualified to perform this test. Not Detected Procedures Date Code Description Status 01/03/2021 53405 Office/Outpatient Established Lo w MDM 20-29 Min Completed 12/20/2020 16167 Office/Outpatient Established Lo w MDM 20-29 Min Completed 12/13/2020 85069 Office/Outpatient Established Mo d MDM 30-39 Min Completed 12/13/2020 62842 Office/Outpatient Established Mo d MDM 30-39 Min Completed 12/13/2020 63953 EKG/Interpretation & Report Comp leted 12/13/2020 61562 EKG/Interpretation & Report Comp leted 10/25/2020 17628 Office/Outpatient Established Mo d MDM 30-39 Min Completed 08/07/2020 02658 Office/Outpatient Established Mo d MDM 30-39 Min Completed 10/06/2013 [id number] Colonoscopy Completed 06/16/2006 [id number] Colonoscopy Completed 12/12/2005 [id number] Mammogram Completed Medical Devices Description No Information Available Encounters Type Date Location Provider Dx Diagnosis Office Visit 01/03/2021 11:40a [facility] 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 Balbina Vincent ne, REFINERY OPERATOR HELPER N39.0 Urinary tract infection, site not specif ied R06.02 Shortness of breath E87.6 Hypokalemia Z79.01 shelter (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s S41.111A Laceration w/o foreign body of right upper arm, init encntr W10.8xxA Fall (on) (from) other stair s and steps, initial encounter Z23 Encounter for immunization Office Visit 12/13/2020 3:20p [facility] 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 Sameer Tristan MD 01/05/2021 Z95.5 Presence of coronary angioplasty implant and graft Sameer Tristan MD 01/05/2021 E87.6 Hypokalemia Sameer chapman MD 01/05/2021 F41.9 Anxiety disorder, unspecified Co tamia Tristan MD 01/05/2021 I35.0 Nonrheumatic aortic (valve) sten osis Sameer Tristan MD 01/05/2021 Z95.0 Presence of cardiac pacemaker Bennett Tristan MD 01/03/2021 J43.2 Centrilobular emphysema Balbina Caballero [facility] 01/03/2021 F41.9 Anxiety disorder, unspecified An n Pearl Frank [facility] 01/03/2021 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 Balbina Crespo [facility] 01/03/2021 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 Balbina Crespo [facility] 01/03/2021 Z51.81 Encounter for therapeutic drug l evel monitoring Protime 01/03/2021 Z79.01 jail (current) drug use for prophylactic purposes Balbina Crespo [facility] 01/03/2021 S75.891D Other specified inju ry of other blood vessels at hip and thigh level, right leg, subsequent encounter Protime 12/27/2020 S75.891D Other specified inju ry of other blood vessels at hip and thigh level, right leg, subsequent encounter Balbina Crespo [facility] 12/27/2020 S75.891D Other specified inju ry of other blood vessels at hip and thigh level, right leg, subsequent encounter Protime 12/27/2020 Z79.01 shelter (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s Balbina Crespo [facility] 12/27/2020 Z79.01 shelter (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s Protime 12/27/2020 Z51.81 Encounter for therapeutic drug l evel monitoring Balbina Crespo [facility] 12/27/2020 Z51.81 Encounter for therapeutic drug l evel monitoring Protime 12/20/2020 Z51.81 Encounter for therapeutic drug l evel monitoring Balbina Crespo [facility] 12/20/2020 Z51.81 Encounter for therapeutic drug l evel monitoring Protime 12/20/2020 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 Balbina Crespo [facility] 12/20/2020 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 [facility] 12/20/2020 S75.891D Other specified inju ry of other blood vessels at hip and thigh level, right leg, subsequent encounter Balbina Crespo, [facility] 12/20/2020 N39.0 Urinary tract infection, site no t specified Balbina Crespo, [facility] 12/20/2020 S75.891D Other specified inju ry of other blood vessels at hip and thigh level, right leg, subsequent encounter [facility] 12/20/2020 R06.02 Shortness of breath Balbina Crespo, [facility] 12/20/2020 E87.6 Hypokalemia Balbina Pearl Frank, [facility] 12/20/2020 Z79.01 shelter (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s Balbina Crespo, [facility] 12/20/2020 S41.111A Laceration without f oreign body of right upper arm, initial encounter Balbina Pearl Frank [facility] 12/20/2020 W10.8xxA Fall (on) (from) other stairs an d steps, initial encounter Balbina Pearl Frank, [facility] 12/20/2020 Z23 Encounter for immunization Balbina Frank, [facility] 12/13/2020 Z51.81 Encounter for therapeutic drug l evel monitoring Balbina Crespo, [facility] 12/13/2020 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 Balbina Crespo, [facility] 12/13/2020 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 Balbina Pearl Frank [facility] 12/13/2020 Z79.01 shelter (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s Balbina Pearl Frank [facility] 12/13/2020 E83.42 Hypomagnesemia Balbina Pearl Frank, [facility] 12/13/2020 J44.1 Chronic obstructive pulmonary disease with (acute) exacerbation Balbina Pearl Zac [facility] 12/13/2020 Z87.891 Personal history of nicotine dep endence Balbina Pearl Frank [facility] 12/13/2020 Z51.81 Encounter for therapeutic drug l evel monitoring [facility] 12/13/2020 S75.891D Other specified inju ry of other blood vessels at hip and thigh level, right leg, subsequent encounter Balbina Crespo, [facility] 12/13/2020 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 Balbina Crespo, [facility] 12/13/2020 R79.1 Abnormal coagulation profile Balbina Crespo, [facility] 12/13/2020 D72.829 Elevated white blood cell count, unspecified Balbina Crespo, [facility] 12/13/2020 Z79.01 shelter (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s Protime 12/13/2020 S75.891D Other specified inju ry of other blood vessels at hip and thigh level, right leg, subsequent encounter Protime 12/13/2020 Z98.61 Coronary angioplasty status Balbina Crespo, [facility] 12/13/2020 Z95.810 Presence of automatic (implantab le) cardiac defibrillator Balbina Crespo [facility] 12/11/2020 R06.02 Shortness of breath Grady le JR, NICKY 12/04/2020 E87.6 Hypokalemia Balbina Crespo, [facility] 12/04/2020 E87.6 Hypokalemia Lab Schedule 11/30/2020 Z51.81 Encounter for therapeutic drug l evel monitoring Balbina Crespo, [facility] 11/30/2020 I10 Essential (primary) hypertension Balbina Crespo, [facility] 11/30/2020 Z79.01 shelter (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s Balbina Crespo, [facility] 11/30/2020 Z51.81 Encounter for therapeutic drug l evel monitoring Protime 11/30/2020 S75.891D Other specified inju ry of other blood vessels at hip and thigh level, right leg, subsequent encounter Balbina Crespo [facility] 11/30/2020 Z79.01 shelter (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s Protime 11/30/2020 I10 Essential (primary) hypertension Lab Schedule 11/30/2020 S75.891D Other specified inju ry of other blood vessels at hip and thigh level, right leg, subsequent encounter Protime 11/30/2020 E87.6 Hypokalemia Balbina Crespo, [facility] 11/30/2020 E87.6 Hypokalemia Lab Schedule 10/25/2020 Z51.81 Encounter for therapeutic drug l evel monitoring Balbina Crespo, [facility] 10/25/2020 Z51.81 Encounter for therapeutic drug l evel monitoring Protime 10/25/2020 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 Balbina Crespo, [facility] 10/25/2020 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 Protime 10/25/2020 S75.891D Other specified inju ry of other blood vessels at hip and thigh level, right leg, subsequent encounter Balbina Crespo, [facility] 10/25/2020 I35.0 Nonrheumatic aortic (valve) sten osis Frederick Tristan, DO 10/25/2020 S75.891D Other specified inju ry of other blood vessels at hip and thigh level, right leg, subsequent encounter Protime 10/25/2020 I25.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 with Frederick Tristan, DO 10/25/2020 I50.22 Chronic systolic (congestive) he art failure Frederick Tristan, DO 10/25/2020 I44.2 Atrioventricular block, complete Frederick Tristan, DO 10/25/2020 I10 Essential (primary) hypertension Frederick Tristan, DO 10/25/2020 Z79.01 shelter (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s Frederick Tristan, DO 10/25/2020 Z51.81 Encounter for therapeutic drug l evel monitoring Frederick Tristan, DO 09/11/2020 Z51.81 Encounter for therapeutic drug l evel monitoring Balbina Crespo, [facility] 09/11/2020 Z51.81 Encounter for therapeutic drug l evel monitoring Protime 09/11/2020 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 Balbina Crespo, [facility] 09/11/2020 Z79.01 shelter (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s Protime 09/11/2020 S75.891D Other specified inju ry of other blood vessels at hip and thigh level, right leg, subsequent encounter Balbina Crespo, [facility] 09/11/2020 S75.891D Other specified inju ry of other blood vessels at hip and thigh level, right leg, subsequent encounter Protime 09/05/2020 I10 Essential (primary) hypertension Balbina Crespo, [facility] 09/05/2020 Z51.81 Encounter for therapeutic drug l evel monitoring Balbina Crespo, [facility] 09/05/2020 E87.6 Hypokalemia Balbina Crespo, [facility] 09/05/2020 Z51.81 Encounter for therapeutic drug l evel monitoring Protime 09/05/2020 Z79.01 shelter (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s Balbina Crespo, [facility] 09/05/2020 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 Protime 09/05/2020 S75.891D Other specified inju ry of other blood vessels at hip and thigh level, right leg, subsequent encounter Balbina Crespo, [facility] 09/05/2020 S75.891D Other specified inju ry of other blood vessels at hip and thigh level, right leg, subsequent encounter Protime 08/28/2020 Z51.81 Encounter for therapeutic drug l evel monitoring Balbina Crespo, [facility] 08/28/2020 Z51.81 Encounter for therapeutic drug l evel monitoring Protime 08/28/2020 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 Balbina Crespo, [facility] 08/28/2020 Z79.01 shelter (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s Protime 08/28/2020 S75.891D Other specified inju ry of other blood vessels at hip and thigh level, right leg, subsequent encounter Balbina Crespo, [facility] 08/28/2020 S75.891D Other specified inju ry of other blood vessels at hip and thigh level, right leg, subsequent encounter Protime 08/22/2020 Z51.81 Encounter for therapeutic drug l evel monitoring Protime 08/22/2020 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 Protime 08/22/2020 S75.891D Other specified inju ry of other blood vessels at hip and thigh level, right leg, subsequent encounter Protime 08/14/2020 Z51.81 Encounter for therapeutic drug l evel monitoring Balbina Crespo, [facility] 08/14/2020 Z51.81 Encounter for therapeutic drug l evel monitoring Protime 08/14/2020 S75.891D Other specified inju ry of other blood vessels at hip and thigh level, right leg, subsequent encounter Balbina Crespo [facility] 08/14/2020 S75.891D Other specified inju ry of other blood vessels at hip and thigh level, right leg, subsequent encounter [employer] 08/14/2020 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 Balbina Crespo [facility] 08/14/2020 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 [employer] 08/07/2020 Z51.81 Encounter for therapeutic drug l evel monitoring Balbina Crespo [facility] 08/07/2020 I10 Essential (primary) hypertension NICKY Morris JR 08/07/2020 S75.891D Other specified inju ry of other blood vessels at hip and thigh level, right leg, subsequent encounter Balbina Crespo [facility] 08/07/2020 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 NICKY Morris JR 08/07/2020 E78.00 Pure hypercholesterolemia, unspe cified NICKY Morris JR 08/07/2020 Z51.81 Encounter for therapeutic drug l evel monitoring [facility] 08/07/2020 Z79.01 shelter (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s Balbina Crespo [facility] 08/07/2020 R01.1 Cardiac murmur, unspecified Prospere NICKY Philippe JR 08/07/2020 S75.891D Other specified inju ry of other blood vessels at hip and thigh level, right leg, subsequent encounter [facility] 08/07/2020 I73.9 Peripheral vascular disease, uns pecified NICKY Morris JR 08/07/2020 I25.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 with NICKY Morris JR 08/07/2020 E03.9 Hypothyroidism, unspecified Robe NICKY Philippe JR 08/07/2020 Z79.01 shelter (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s Protime 08/07/2020 [...] l evel monitoring ELENA Lucas 07/17/2020 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 * 01/19/2021 11:00 am - Jean at [facility] * 02/07/2021 8:00 am - ELENA Lucas at [facility] 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
--- OUTSIDE RECORDS SUMMARY | 2021-01-09 15:42 | CCD | Continuity of Care Document ---
Author Author Yovany Tristan MD Organization Unknown Address [address] [place] [address] Phone [phone] Care Team Providers Care [employer] Processor Name Role Phone Sameer Tristan JR, MD AUTM Unavailable Nicolas Albert MD AUTM [phone] Dick Medina MD AUTM [phone] Servando Collins MD AUTM [phone] Clara Lagunas OD AUTM Unavailable Renetta Swanson MD AUTM [phone] Brenda Mcgraw AUTM [phone] Problems Active Problems Provider Date Anticoagulants Bladder Tier (Current) Use O nset: 01/25/1997 Injury Blood [...] one every 12 hours 14caps N39.0 [facility] Medications Administered in Office Medication SIG Qnty Indications Ordering Provider Date Administration Of Flu Vaccine Inj ection Balbina Crespo [facility] 12/20/2020 Immunization Adminstration,1 Vaccine/Tox oid Injection Balbina Crespo [facility] 12/20/2020 Covid-19 vaccine, Unspecified Inj ection Unknown [...] CPT Code Status Date Vaccine Lot # 85072 Given 12/20/2020 Adacel- Tetanus Diphtheria P ertussis [id number] 54424 Given 12/20/2020 Influenza Vaccin e Quadrivalent Preser/Antibiotic Free Im Use 75450 Given 12/20/2020 Influenza Vaccin e Quadrivalent Preser/Antibiotic Free Im Use [id number] 96081 Given 12/20/2020 Adacel- Tetanus Diphtheria P ertussis 25628 Given 12/29/2019 Influenza Vaccin e Quadrivalent Preser/Antibiotic Free Im Use 33594 Given 12/28/2018 Influenza Vaccin e Quadrivalent Preser/Antibiotic Free Im Use 950704 27130 Given 01/05/2018 Influenza Virus Vaccine, Quadrivalent ([id number]), Derived From 9 Given 12/02/2017 Shingrix U-Td Given 10/28/2017 Td(Adult)(Tetanus, Diphtheri a) unspecified 54366 Given 09/09/2017 Shingrix 11693 Given 01/01/2017 Influenza Vaccin e Quadrivalent Preser/Antibiotic Free Im Use 899137 Q2037 Given 01/16/2016 Fluvirin Virus Vaccine 72832 01 Q2037 Given 12/23/2014 Fluvirin Virus Vaccine 29492 01 31039 Given 04/29/2014 Prevnar 13 [id number] Q2037 Given 01/12/2014 Fluvirin Virus Vaccine 91894 01 14972 Given 01/23/2007 Pneumovax 23 41537 Given 08/20/2005 Tetanus/Diptheria(Td)Toxoids Preservative Free 99603 Given 07/26/1997 Pneumovax 23 [id number] Refused 12/20/2011 [...] H/L Range Note Laboratory test finding 01/05/2021 [facility] Transcribing Operators Supervisor: Dr [place] [address] [phone] Magnesium 2.1 mg/dL 1.8 - 2.4 Comprehensive Chem Profile 01/05/2021 [facility] Transcribing Operators Supervisor: Dr Sameer [place] [address] [phone] Glucose 100 mg/dL High 74 - 99 [...] 60 mL/min >60 2 Lipid Profile 01/05/2021 [facility] Transcribing Operators Supervisor: Dr Sameer [place] [address] [phone] Cholesterol 133 mg/dL 131 - 200 Triglycerides 85 mg/dL 30 - 150 HDL Cholesterol 47 mg/dL 35 - 60 LDL (Calculated) 69 CALC 50 - 159 Laboratory test finding 01/05/2021 [facility] Transcribing Operators Supervisor: Dr [place]er [place] [address] [phone] Thyroid Stimulating Hormone 4.53 uIU/mL High 0.3 6 - 3.74 Complete Blood Count 01/05/2021 [facility] Transcribing Operators Supervisor: Dr [place] [address] [phone] WBC 9.1 x10*3/UL 4.1 - 10.9 RBC [...] Wi-Inr Inr 1.9 Basic Metabolic Panel 12/20/2020 [facility] Transcribing Operators Supervisor: [place] [address] [phone] Glucose 108 mg/dL High 74 - 99 [...] Low >60 4 Ua Dipstick Only 12/20/2020 [facility] Transcribing Operators Supervisor: Dr Sameer [place] [address] [phone] Urine Color YELLOW Yellow Urine Appearance CLOUDY Abnormal Clear Urine PH 6.0 units 5.0 - 9.0 Urine Specific [place] 1.010 1.005 - 1.030 Urine Leukocytes LARGE Abnormal Negative Urine Blood SMALL Abnormal Negative Urine Protein 1+ Abnormal Negative -Trace Urine Glucose NEGATIVE mg/dL Negative Urine Nitrite POSITIVE Abnormal Negative Urine Ketone NEGATIVE mg/dL Negative Urine Bilirubin NEGATIVE Negative Urine Urobilinogen 0.2 mg/dL 0.2 - 1.0 Laboratory test finding 12/20/2020 [facility] [address] [place] [address] [phone] Urine Culture FULL REPORT IN L <SEE NOTE> Normal 5 Complete Blood Count 12/20/2020 [facility] Transcribing Operators Supervisor: [place] [address] [phone] WBC 11.6 x10*3/UL High 4.1 - 10.9 [...] Wi-Inr Inr 4.8 Complete Blood Count 12/13/2020 [facility] Transcribing Operators Supervisor: [place] [address] [phone] WBC 14.4 x10*3/UL High 4.1 - 10.9 [...] Basic Metabolic Panel 12/13/2020 [facility] Transcribing Operators Supervisor: Dr Sameer [place] [address] [phone] Glucose 120 mg/dL High 74 - 99 [...] mL/min >60 9 Laboratory test finding 12/13/2020 [facility], Transcribing Operators Supervisor: Dr Sameer [place] [address] [phone] Magnesium 1.5 mg/dL Low 1.8 - 2.4 Laboratory test finding 12/04/2020 [facility], Transcribing Operators Supervisor: Dr Sameer [place] [address] [phone] Potassium 3.9 mEq/L 3.5 - 5.1 Basic Metabolic Panel 11/30/2020 [facility] Transcribing Operators Supervisor: Dr Sameer [place] [address] [phone] Glucose 94 mg/dL 74 - 99 10 [...] Wi-Inr Inr 3.1 Laboratory test finding 11/30/2020 [facility] Transcribing Operators Supervisor: Dr [place] [address] [phone] Magnesium 1.3 mg/dL Low 1.8 - 2.4 Complete Blood Count 10/25/2020 [facility] Transcribing Operators Supervisor: Dr [place] [address] [phone] WBC 10.3 x10*3/UL 4.1 - 10.9 RBC [...] 2.0 - 7.8 Comprehensive Chem Profile 10/25/2020 [facility] [employer] Operators Supervisor: Dr [place] [address] [phone] Glucose 100 mg/dL High 74 - 99 [...] Wi-Inr Inr 3.4 Complete Blood Count 09/05/2020 [facility] Transcribing Operators Supervisor: [place] [address] [phone] WBC 12.1 x10*3/UL High 4.1 - 10.9 [...] 2.0 - 7.8 Basic Metabolic Panel 09/05/2020 [facility] Transcribing Operators Supervisor: [place] [address] [phone] Glucose 108 mg/dL High 74 - 99 [...] mL/min >60 17 Laboratory test finding 09/05/2020 [facility] Transcribing Operators Supervisor: Dr Sameer Tristan [place], [place] [id number] [phone] Magnesium 1.6 mg/dL Low 1.8 - 2.4 Laboratory test finding 08/28/2020 [facility] 3.7 Laboratory test finding 08/22/2020 [facility] 4.1 Laboratory test finding 08/14/2020 [facility] 3.9 Laboratory test finding 08/07/2020 [facility] 1.5 Complete Blood Count 08/07/2020 [facility] Transcribing Operators Supervisor: Dr Sameer [place] [address] [phone] WBC 10.6 x10*3/UL 4.1 - 10.9 RBC [...] 2.0 - 7.8 Basic Metabolic Panel 08/07/2020 [facility] Transcribing Operators Supervisor: [place] [address] [phone] Glucose 103 mg/dL High 74 - 99 [...] mL/min >60 20 Coronavirus 2019 Nasopharygeal 07/28/[address] [address] [phone] Coronavirus 2019 Nasopharygeal ASSAY INFORMATIO <SEE N OTE> 21 Laboratory test finding 07/17/2020 Wi-In[facility] Inr 3.2 Coronavirus 2019 Nasopharygeal 07/15/[address] [address] [phone] Coronavirus 2019 Nasopharygeal ASSAY INFORMATIO <SEE N OTE> 22 1 100-125 mg/dL PRE-DIABET ES/FASTING >126 mg/dL DIABETES/FASTING 2 CHRONIC KIDNEY DISEASE STAGI NG PER NKF STAGE I & II GFR >= 60 NORMAL TO MILDLY DECREASED STAGE III GFR 30-59 MODERATELY DECREASED STAGE IV GFR 15-29 SEVERELY DECREASED STAGE V GFR <15 VERY LITTLE GFR LEFT ESRD GFR <15 ON DIAPER MACHINE TENDER 3 100-125 mg/dL PRE-DIABET ES/FASTING >126 mg/dL DIABETES/FASTING 4 CHRONIC KIDNEY DISEASE STAGI NG PER NKF STAGE I & II GFR >= 60 NORMAL TO MILDLY DECREASED STAGE III GFR 30-59 MODERATELY DECREASED STAGE IV GFR 15-29 SEVERELY DECREASED STAGE V GFR <15 VERY LITTLE GFR LEFT ESRD GFR <15 ON DIAPER MACHINE TENDER 5 FULL REPORT IN LAB NOTES (eC [...] LITTLE GFR LEFT ESRD GFR <15 ON DIAPER MACHINE TENDER 10 100-125 mg/dL PRE-DIABET ES/FASTING >126 mg/dL DIABETES/FASTING 11 NOTE: RESULT VERIFIED. 12 CHRONIC KIDNEY DISEASE STAGI NG PER NKF STAGE I & II GFR >= 60 NORMAL TO MILDLY DECREASED STAGE III GFR 30-59 MODERATELY DECREASED STAGE IV GFR 15-29 SEVERELY DECREASED STAGE V GFR <15 VERY LITTLE GFR LEFT ESRD GFR <15 ON DIAPER MACHINE TENDER 13 100-125 mg/dL PRE-DIABET ES/FASTING >126 mg/dL DIABETES/FASTING 14 CHRONIC KIDNEY DISEASE STAGI NG PER NKF STAGE I & II GFR >= 60 NORMAL TO MILDLY DECREASED STAGE III GFR 30-59 MODERATELY DECREASED STAGE IV GFR 15-29 SEVERELY DECREASED STAGE V GFR <15 VERY LITTLE GFR LEFT ESRD GFR <15 ON DIAPER MACHINE TENDER 15 NOTE: RESULT VERIFIED. 16 100-125 mg/dL PRE-DIABET ES/FASTING >126 mg/dL DIABETES/FASTING 17 CHRONIC KIDNEY DISEASE STAGI NG PER NKF STAGE I & II GFR >= 60 NORMAL TO MILDLY DECREASED STAGE III GFR 30-59 MODERATELY DECREASED STAGE IV GFR 15-29 SEVERELY DECREASED STAGE V GFR <15 VERY LITTLE GFR LEFT ESRD GFR <15 ON DIAPER MACHINE TENDER 18 100-125 mg/dL PRE-DIABET ES/FASTING >126 mg/dL DIABETES/FASTING 19 NOTE: RESULT VERIFIED. 20 CHRONIC KIDNEY DISEASE STAGI NG PER NKF STAGE I & II GFR >= 60 NORMAL TO MILDLY DECREASED STAGE III GFR 30-59 MODERATELY DECREASED STAGE IV GFR 15-29 SEVERELY DECREASED STAGE V GFR <15 VERY LITTLE GFR LEFT ESRD GFR <15 ON DIAPER MACHINE TENDER 21 ASSAY INFORMATION: Real Time RT-PCR NOTE: The COVID-19 assay has been cleared by the U.S. Food and Drug Administration under the Emergency Use Authorization (EUA). [facility] and [facility] are designated as high complexity laboratories by the Clinical Laboratory Improvement Amendments of 1988(CLIA) and are qualified to perform this test. Not Detected 22 ASSAY INFORMATION: Real Time RT-PCR NOTE: The COVID-19 assay has been cleared by the U.S. Food and Drug Administration under the Emergency Use Authorization (EUA). [facility] and [facility] are designated as high complexity laboratories by the Clinical Laboratory Improvement Amendments of 1988(CLIA) and are qualified to perform this test. Not Detected Procedures Date Code Description Status 01/03/2021 43297 Office/Outpatient Established Lo w MDM 20-29 Min Completed 12/20/2020 73267 Office/Outpatient Established Lo w MDM 20-29 Min Completed 12/13/2020 28644 Office/Outpatient Established Mo d MDM 30-39 Min Completed 12/13/2020 09072 Office/Outpatient Established Mo d MDM 30-39 Min Completed 12/13/2020 29275 EKG/Interpretation & Report Comp leted 12/13/2020 51050 EKG/Interpretation & Report Comp leted 10/25/2020 76092 Office/Outpatient Established Mo d MDM 30-39 Min Completed 08/07/2020 98259 Office/Outpatient Established Mo d MDM 30-39 Min Completed 10/06/2013 [id number] Colonoscopy Completed 06/16/2006 [id number] Colonoscopy Completed 12/12/2005 [id number] Mammogram Completed Medical Devices Description No Information Available Encounters Type Date Location Provider Dx Diagnosis Office Visit 01/03/2021 11:40a [facility] 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 Balbina Vincent ne, SUPERVIS[employer] N39.0 Urinary tract infection, site not specif ied R06.02 Shortness of breath E87.6 Hypokalemia Z79.01 nursing home (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s S41.111A Laceration w/o foreign body of right upper arm, init encntr W10.8xxA Fall (on) (from) other stair s and steps, initial encounter Z23 Encounter for immunization Office Visit 12/13/2020 3:20p [facility] 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 Sameer Tristan MD 01/05/2021 Z95.5 Presence of coronary angioplasty implant and graft Sameer Tristan MD 01/05/2021 E87.6 Hypokalemia Sameer chapman MD 01/05/2021 F41.9 Anxiety disorder, unspecified Co tamia Tristan MD 01/05/2021 I35.0 Nonrheumatic aortic (valve) sten osis Sameer Tristan MD 01/05/2021 Z95.0 Presence of cardiac pacemaker Co tamia Tristan MD 01/03/2021 J43.2 Centrilobular emphysema Balbina Caballero, [facility] 01/03/2021 F41.9 Anxiety disorder, unspecified An n Pearl Zac [facility] 01/03/2021 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 Balbina Crespo [facility] 01/03/2021 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 Balbina Crespo [facility] 01/03/2021 Z51.81 Encounter for therapeutic drug l evel monitoring Protime 01/03/2021 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 Balbina Crespo [facility] 01/03/2021 S75.891D Other specified inju ry of other blood vessels at hip and thigh level, right leg, subsequent encounter Protime 12/27/2020 S75.891D Other specified inju ry of other blood vessels at hip and thigh level, right leg, subsequent encounter Balbina Crespo [facility] 12/27/2020 S75.891D Other specified inju ry of other blood vessels at hip and thigh level, right leg, subsequent encounter Protime 12/27/2020 Z79.01 nursing home (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s Balbina Crespo [facility] 12/27/2020 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 Protime 12/27/2020 Z51.81 Encounter for therapeutic drug l evel monitoring Balbina Crespo [facility] 12/27/2020 Z51.81 Encounter for therapeutic drug l evel monitoring Protime 12/20/2020 Z51.81 Encounter for therapeutic drug l evel monitoring Balbina Crespo [facility] 12/20/2020 Z51.81 Encounter for therapeutic drug l evel monitoring Protime 12/20/2020 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 Balbina Crespo, [facility] 12/20/2020 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 [facility] 12/20/2020 S75.891D Other specified inju ry of other blood vessels at hip and thigh level, right leg, subsequent encounter Balbina Crespo, [facility] 12/20/2020 N39.0 Urinary tract infection, site no t specified Balbina Crespo [facility] 12/20/2020 S75.891D Other specified inju ry of other blood vessels at hip and thigh level, right leg, subsequent encounter [facility] 12/20/2020 R06.02 Shortness of breath Balbina Pearl Frank, [facility] 12/20/2020 E87.6 Hypokalemia Balbina Pearl Frank, [facility] 12/20/2020 Z79.01 nursing home (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s Balbina Crespo, [facility] 12/20/2020 S41.111A Laceration without f oreign body of right upper arm, initial encounter Balbina Pearl Frank [facility] 12/20/2020 W10.8xxA Fall (on) (from) other stairs an d steps, initial encounter Balbina Pearl Frank, [facility] 12/20/2020 Z23 Encounter for immunization Balbina Frank, [facility] 12/13/2020 Z51.81 Encounter for therapeutic drug l evel monitoring Balbina Crespo, [facility] 12/13/2020 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 Balbina Pearl Zac, [facility] 12/13/2020 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 Balbina Pearl Frank [facility] 12/13/2020 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 Balbina Pearl Frank [facility] 12/13/2020 E83.42 Hypomagnesemia Balbina Crespo [facility] 12/13/2020 J44.1 Chronic obstructive pulmonary disease with (acute) exacerbation Balbina Pearl Zac, [facility] 12/13/2020 Z87.891 Personal history of nicotine dep endence Balbina Pearl Frank, [facility] 12/13/2020 Z51.81 Encounter for therapeutic drug l evel monitoring [facility] 12/13/2020 S75.891D Other specified inju ry of other blood vessels at hip and thigh level, right leg, subsequent encounter Balbina Crespo, [facility] 12/13/2020 Z79.01 nursing home (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s Balbina Crespo, [facility] 12/13/2020 R79.1 Abnormal coagulation profile Balbina Crespo [facility] 12/13/2020 D72.829 Elevated white blood cell count, unspecified Balbina Crespo [facility] 12/13/2020 Z79.01 nursing home (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s Protime 12/13/2020 S75.891D Other specified inju ry of other blood vessels at hip and thigh level, right leg, subsequent encounter Protime 12/13/2020 Z98.61 Coronary angioplasty status Balbina Crespo, [facility] 12/13/2020 Z95.810 Presence of automatic (implantab le) cardiac defibrillator Balbina Crespo [facility] 12/11/2020 R06.02 Shortness of breath Grady le JR, PA 12/04/2020 E87.6 Hypokalemia Balbina Crespo [facility] 12/04/2020 E87.6 Hypokalemia Lab Schedule 11/30/2020 Z51.81 Encounter for therapeutic drug l evel monitoring Balbina Crespo, [facility] 11/30/2020 I10 Essential (primary) hypertension Balbina Crespo [facility] 11/30/2020 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 Balbina Crespo [facility] 11/30/2020 Z51.81 Encounter for therapeutic drug l evel monitoring Protime 11/30/2020 S75.891D Other specified inju ry of other blood vessels at hip and thigh level, right leg, subsequent encounter Balbina Crespo [facility] 11/30/2020 Z79.01 nursing home (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s Protime 11/30/2020 I10 Essential (primary) hypertension Lab Schedule 11/30/2020 S75.891D Other specified inju ry of other blood vessels at hip and thigh level, right leg, subsequent encounter Protime 11/30/2020 E87.6 Hypokalemia Balbina Crespo [facility] 11/30/2020 E87.6 Hypokalemia Lab Schedule 10/25/2020 Z51.81 Encounter for therapeutic drug l evel monitoring Balbina Crespo, [employer] 10/25/2020 Z51.81 Encounter for therapeutic drug l evel monitoring Protime 10/25/2020 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 Balbina Cerspo, [facility] 10/25/2020 Z79.01 nursing home (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s Protime 10/25/2020 S75.891D Other specified inju ry of other blood vessels at hip and thigh level, right leg, subsequent encounter Balbina Crespo, [facility] 10/25/2020 I35.0 Nonrheumatic aortic (valve) sten osis Frederick Tristan, DO 10/25/2020 S75.891D Other specified inju ry of other blood vessels at hip and thigh level, right leg, subsequent encounter Protime 10/25/2020 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 with Frederick Tristan, DO 10/25/2020 I50.22 Chronic systolic (congestive) he art failure Frederick Tristan, DO 10/25/2020 I44.2 Atrioventricular block, complete Frederick Tristan, DO 10/25/2020 I10 Essential (primary) hypertension Frederick Tristan, DO 10/25/2020 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 Frederick Tristan, DO 10/25/2020 Z51.81 Encounter for therapeutic drug l evel monitoring Frederick Tristan, DO 09/11/2020 Z51.81 Encounter for therapeutic drug l evel monitoring Balbina Crespo, [facility] 09/11/2020 Z51.81 Encounter for therapeutic drug l evel monitoring Protime 09/11/2020 Z79.01 nursing home (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s Balbina Crespo, [facility] 09/11/2020 Z79.01 nursing home (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s Protime 09/11/2020 S75.891D Other specified inju ry of other blood vessels at hip and thigh level, right leg, subsequent encounter Balbina Crespo, [facility] 09/11/2020 S75.891D Other specified inju ry of other blood vessels at hip and thigh level, right leg, subsequent encounter Protime 09/05/2020 I10 Essential (primary) hypertension Balbina Crespo, [facility] 09/05/2020 Z51.81 Encounter for therapeutic drug l evel monitoring Balbina Crespo, [facility] 09/05/2020 E87.6 Hypokalemia Balbina Crespo, [facility] 09/05/2020 Z51.81 Encounter for therapeutic drug l evel monitoring Protime 09/05/2020 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 Balbina Crespo, [facility] 09/05/2020 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 Protime 09/05/2020 S75.891D Other specified inju ry of other blood vessels at hip and thigh level, right leg, subsequent encounter Balbina Crespo, [facility] 09/05/2020 S75.891D Other specified inju ry of other blood vessels at hip and thigh level, right leg, subsequent encounter Protime 08/28/2020 Z51.81 Encounter for therapeutic drug l evel monitoring Balbina Crespo, [facility] 08/28/2020 Z51.81 Encounter for therapeutic drug l evel monitoring Protime 08/28/2020 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 Balbina Crespo, [facility] 08/28/2020 Z79.01 nursing home (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s Protime 08/28/2020 S75.891D Other specified inju ry of other blood vessels at hip and thigh level, right leg, subsequent encounter Balbina Crespo [facility] 08/28/2020 S75.891D Other specified inju ry of other blood vessels at hip and thigh level, right leg, subsequent encounter Protime 08/22/2020 Z51.81 Encounter for therapeutic drug l evel monitoring Protime 08/22/2020 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 Protime 08/22/2020 S75.891D Other specified inju ry of other blood vessels at hip and thigh level, right leg, subsequent encounter Protime 08/14/2020 Z51.81 Encounter for therapeutic drug l evel monitoring Balbina Crespo, [facility] 08/14/2020 Z51.81 Encounter for therapeutic drug l evel monitoring Protime 08/14/2020 S75.891D Other specified inju ry of other blood vessels at hip and thigh level, right leg, subsequent encounter Balbina Crespo [facility] 08/14/2020 S75.891D Other specified inju ry of other blood vessels at hip and thigh level, right leg, subsequent encounter Protime 08/14/2020 Z79.01 nursing home (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s Balbina Crespo [facility] 08/14/2020 Z79.01 nursing home (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s Protime 08/07/2020 Z51.81 Encounter for therapeutic drug l evel monitoring Balbina Crespo [facility] 08/07/2020 I10 Essential (primary) hypertension NICKY Morris JR 08/07/2020 S75.891D Other specified inju ry of other blood vessels at hip and thigh level, right leg, subsequent encounter Balbina Crespo [facility] 08/07/2020 Z79.01 nursing home (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s NICKY Morris JR 08/07/2020 E78.00 Pure hypercholesterolemia, unspe cified NICKY Morris JR 08/07/2020 Z51.81 Encounter for therapeutic drug l evel monitoring Protime 08/07/2020 Z79.01 nursing home (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s Balbina Crespo [facility] 08/07/2020 R01.1 Cardiac murmur, unspecified NICKY Cleveland JR 08/07/2020 S75.891D Other specified inju ry of other blood vessels at hip and thigh level, right leg, subsequent encounter Protime 08/07/2020 I73.9 Peripheral vascular disease, uns pecified NICKY Morris JR 08/07/2020 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 with NICKY Morris JR 08/07/2020 E03.9 Hypothyroidism, unspecified NICKY Cleveland JR 08/07/2020 Z79.01 nursing home (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s Protime 08/07/2020 [...] l evel monitoring ELENA Lucas 07/17/2020 Z79.01 nursing home (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s Protime 07/17/2020 Z79.01 nursing home (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s ELENA Lucas 07/17/2020 S75.891D Other specified inju ry of other blood vessels at hip and thigh level, right leg, subsequent encounter Protime 07/17/2020 S75.891D Other specified inju ry of other blood vessels at hip and thigh level, right leg, subsequent encounter ELENA Lucas Plan of Treatment Future Appointment(s):* 04/09/2021 9:40 am - Sameer Tristan MD at [facility] * 01/19/2021 11:00 am - Jean at [facility] * 02/07/2021 8:00 am - ELENA Lucas at [facility] 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
--- OUTSIDE RECORDS SUMMARY | 2021-01-09 15:42 | CCD | Continuity of Care Document ---
Author Author Yovany Tristan MD Organization Unknown Address [address] [facility] [address] [place] [address] Phone [phone] Care Team Providers Care Acting Section Chief Name Role Phone Sameer Tristan JR, MD AUTM Unavailable Nioclas Albert MD AUTM [phone] Dick Medina MD AUTM [phone] Servando Collins MD AUTM [phone] Clara Lagunas OD AUTM Unavailable Renetta Swanson MD AUTM [phone] Brenda Mcgraw AUTM [phone] Problems Active Problems Provider Date Anticoagulants Director Of Quality (Current) Use O nset: 01/25/1997 Injury Blood [...] one every 12 hours 14caps N39.0 [facility] Medications Administered in Office Medication SIG Qnty Indications Ordering Provider Date Administration Of Flu Vaccine Inj ection [facility] 12/20/2020 Immunization Adminstration,1 Vaccine/Tox oid Injection [facility] 12/20/2020 Covid-19 vaccine, Unspecified Inj [...] CPT Code Status Date Vaccine Lot # [id number] Given 12/20/2020 Adacel- Tetanus Diphtheria P ertussis [id number] 49064 Given 12/20/2020 Influenza Vaccin e Quadrivalent Preser/Antibiotic Free Im Use 48798 Given 12/20/2020 Influenza Vaccin e Quadrivalent Preser/Antibiotic Free Im Use [id number] 24287 Given 12/20/2020 Adacel- Tetanus Diphtheria P ertussis 42294 Given 12/29/2019 Influenza Vaccin e Quadrivalent Preser/Antibiotic Free Im Use 17270 Given 12/28/2018 Influenza Vaccin e Quadrivalent Preser/Antibiotic Free Im Use [id number] 93142 Given 01/05/2018 Influenza Virus Vaccine, Quadrivalent ([id number]), Derived From 4 Given 12/02/2017 Shingrix U-Td Given 10/28/2017 Td(Adult)(Tetanus, Diphtheri a) unspecified 31955 Given 09/09/2017 Shingrix 42954 Given 01/01/2017 Influenza Vaccin e Quadrivalent Preser/Antibiotic Free Im Use [id number] Q2037 Given 01/16/2016 Fluvirin Virus Vaccine 36325 01 Q2037 Given 12/23/2014 Fluvirin Virus Vaccine 87676 01 12648 Given 04/29/2014 Prevnar 13 [id number] Q2037 Given 01/12/2014 Fluvirin Virus Vaccine 84360 01 86252 Given 01/23/2007 Pneumovax 23 94636 Given 08/20/2005 Tetanus/Diptheria(Td)Toxoids Preservative Free 65375 Given 07/26/1997 Pneumovax 23 [id number] Refused 12/20/2011 [...] H/L Range Note Laboratory test finding 01/05/2021 [facility]: [place] [address] [phone] Magnesium 2.1 mg/dL 1.8 - 2.4 Comprehensive Chem Profile 01/05/2021 [facility] Echevarria [facility]: [place] [address] [phone] Glucose 100 mg/dL High 74 - 99 [...] 60 mL/min >60 2 Lipid Profile 01/05/2021 [facility] , [facility]: [place] [address] [phone] Cholesterol 133 mg/dL 131 - 200 Triglycerides 85 mg/dL 30 - 150 HDL Cholesterol 47 mg/dL 35 - 60 LDL (Calculated) 69 CALC 50 - 159 Laboratory test finding 01/05/2021 [facility]: [place] [address] [phone] Thyroid Stimulating Hormone 4.53 uIU/mL High 0.3 6 - 3.74 Complete Blood Count 01/05/2021 [facility] l[facility]ri Ness [facility]: [place] [address] [phone] WBC 9.1 x10*3/UL 4.1 - 10.9 RBC [...] Wi-Inr Inr 1.9 Basic Metabolic Panel 12/20/2020 [facility]: [place] [address] [phone] Glucose 108 mg/dL High 74 - 99 [...] Low >60 4 Ua Dipstick Only 12/20/2020 [facility]: [place] [address] [phone] Urine Color YELLOW Yellow Urine Appearance CLOUDY Abnormal Clear Urine PH 6.0 units 5.0 - 9.0 Urine Specific [place] 1.010 1.005 - 1.030 Urine Leukocytes LARGE Abnormal Negative Urine Blood SMALL Abnormal Negative Urine Protein 1+ Abnormal Negative -Trace Urine Glucose NEGATIVE mg/dL Negative Urine Nitrite POSITIVE Abnormal Negative Urine Ketone NEGATIVE mg/dL Negative Urine Bilirubin NEGATIVE Negative Urine Urobilinogen 0.2 mg/dL 0.2 - 1.0 Laboratory test finding 12/20/2020 [facility] [address] [place] [address] [phone] Urine Culture FULL REPORT IN L <SEE NOTE> Normal 5 Complete Blood Count 12/20/2020 [facility]: [place] [address] [phone] WBC 11.6 x10*3/UL High 4.1 - 10.9 [...] Wi-Inr Inr 4.8 Complete Blood Count 12/13/2020 [facility]: [place] [address] [phone] WBC 14.4 x10*3/UL High 4.1 - 10.9 [...] 2.0 - 7.8 Basic Metabolic Panel 12/13/2020 [facility]: Dr Sameer Tr[place] [address] [phone] Glucose 120 mg/dL High 74 - 99 [...] mL/min >60 9 Laboratory test finding 12/13/2020 [facility], [facility]: Dr Sameer Tristan [place] [address] [phone] Magnesium 1.5 mg/dL Low 1.8 - 2.4 Laboratory test finding 12/04/2020 [facility], [facility]: Dr Sameer Tristan [place] [address] [phone] Potassium 3.9 mEq/L 3.5 - 5.1 Basic Metabolic Panel 11/30/2020 [facility]: Dr Sameer Tristan [place] [address] [phone] Glucose 94 mg/dL 74 - 99 10 [...] Wi-Inr Inr 3.1 Laboratory test finding 11/30/2020 [facility] l[facility] quintero [facility]: [place] [address] [phone] Magnesium 1.3 mg/dL Low 1.8 - 2.4 Complete Blood Count 10/25/2020 [facility]ri Ness [facility]: [place] [address] [phone] WBC 10.3 x10*3/UL 4.1 - 10.9 RBC [...] 2.0 - 7.8 Comprehensive Chem Profile 10/25/2020 [facility]: [place] [address] [phone] Glucose 100 mg/dL High 74 - 99 [...] Wi-Inr Inr 3.4 Complete Blood Count 09/05/2020 [facility]: [place] [address] [phone] WBC 12.1 x10*3/UL High 4.1 - 10.9 [...] 2.0 - 7.8 Basic Metabolic Panel 09/05/2020 [facility]: [place] [address] [phone] Glucose 108 mg/dL High 74 - 99 [...] mL/min >60 17 Laboratory test finding 09/05/2020 [facility]: Dr Sameer Tristan [place], [place] [id number] [phone] Magnesium 1.6 mg/dL Low 1.8 - 2.4 Laboratory test finding 08/28/2020 [facility] 3.7 Laboratory test finding 08/22/2020 [facility] 4.1 Laboratory test finding 08/14/2020 [facility] 3.9 Laboratory test finding 08/07/2020 Wi-[facility] Inr 1.5 Complete Blood Count 08/07/2020 [facility]: Dr Sameer Tristan [place] [address] [phone] WBC 10.6 x10*3/UL 4.1 - 10.9 RBC [...] 2.0 - 7.8 Basic Metabolic Panel 08/07/2020 [facility]: [place] [address] [phone] Glucose 103 mg/dL High 74 - 99 [...] mL/min >60 20 Coronavirus 2019 Nasopharygeal 07/28/[address] [address] [phone] Coronavirus 2019 Nasopharygeal ASSAY INFORMATIO <SEE N OTE> 21 Laboratory test finding 07/17/2020 Wi-Inr Inr 3.2 Coronavirus 2019 Nasopharygeal 07/15/[address] [address] [phone] Coronavirus 2019 Nasopharygeal ASSAY INFORMATIO <SEE N OTE> 22 1 100-125 mg/dL PRE-DIABET ES/FASTING >126 mg/dL DIABETES/FASTING 2 CHRONIC KIDNEY DISEASE STAGI NG PER NKF STAGE I & II GFR >= 60 NORMAL TO MILDLY DECREASED STAGE III GFR 30-59 MODERATELY DECREASED STAGE IV GFR 15-29 SEVERELY DECREASED STAGE V GFR <15 VERY LITTLE GFR LEFT ESRD GFR <15 ON APPAREL MACHINERY INSTRUCTOR 3 100-125 mg/dL PRE-DIABET ES/FASTING >126 mg/dL DIABETES/FASTING 4 CHRONIC KIDNEY DISEASE STAGI NG PER NKF STAGE I & II GFR >= 60 NORMAL TO MILDLY DECREASED STAGE III GFR 30-59 MODERATELY DECREASED STAGE IV GFR 15-29 SEVERELY DECREASED STAGE V GFR <15 VERY LITTLE GFR LEFT ESRD GFR <15 ON APPAREL MACHINERY INSTRUCTOR 5 FULL REPORT IN LAB NOTES (eC [...] LITTLE GFR LEFT ESRD GFR <15 ON APPAREL MACHINERY INSTRUCTOR 10 100-125 mg/dL PRE-DIABET ES/FASTING >126 mg/dL DIABETES/FASTING 11 NOTE: RESULT VERIFIED. 12 CHRONIC KIDNEY DISEASE STAGI NG PER NKF STAGE I & II GFR >= 60 NORMAL TO MILDLY DECREASED STAGE III GFR 30-59 MODERATELY DECREASED STAGE IV GFR 15-29 SEVERELY DECREASED STAGE V GFR <15 VERY LITTLE GFR LEFT ESRD GFR <15 ON APPAREL MACHINERY INSTRUCTOR 13 100-125 mg/dL PRE-DIABET ES/FASTING >126 mg/dL DIABETES/FASTING 14 CHRONIC KIDNEY DISEASE STAGI NG PER NKF STAGE I & II GFR >= 60 NORMAL TO MILDLY DECREASED STAGE III GFR 30-59 MODERATELY DECREASED STAGE IV GFR 15-29 SEVERELY DECREASED STAGE V GFR <15 VERY LITTLE GFR LEFT ESRD GFR <15 ON APPAREL MACHINERY INSTRUCTOR 15 NOTE: RESULT VERIFIED. 16 100-125 mg/dL PRE-DIABET ES/FASTING >126 mg/dL DIABETES/FASTING 17 CHRONIC KIDNEY DISEASE STAGI NG PER NKF STAGE I & II GFR >= 60 NORMAL TO MILDLY DECREASED STAGE III GFR 30-59 MODERATELY DECREASED STAGE IV GFR 15-29 SEVERELY DECREASED STAGE V GFR <15 VERY LITTLE GFR LEFT ESRD GFR <15 ON APPAREL MACHINERY INSTRUCTOR 18 100-125 mg/dL PRE-DIABET ES/FASTING >126 mg/dL DIABETES/FASTING 19 NOTE: RESULT VERIFIED. 20 CHRONIC KIDNEY DISEASE STAGI NG PER NKF STAGE I & II GFR >= 60 NORMAL TO MILDLY DECREASED STAGE III GFR 30-59 MODERATELY DECREASED STAGE IV GFR 15-29 SEVERELY DECREASED STAGE V GFR <15 VERY LITTLE GFR LEFT ESRD GFR <15 ON APPAREL MACHINERY INSTRUCTOR 21 ASSAY INFORMATION: Real Time RT-PCR NOTE: The COVID-19 assay has been cleared by the U.S. Food and Drug Administration under the Emergency Use Authorization (EUA). [facility] are designated as high complexity laboratories by the Clinical Laboratory Improvement Amendments of 1988(CLIA) and are qualified to perform this test. Not Detected 22 ASSAY INFORMATION: Real Time RT-PCR NOTE: The COVID-19 assay has been cleared by the U.S. Food and Drug Administration under the Emergency Use Authorization (EUA). [facility] and [email or web address] are designated as high complexity laboratories by the Clinical Laboratory Improvement Amendments of 1988(CLIA) and are qualified to perform this test. Not Detected Procedures Date Code Description Status 01/03/2021 92384 Office/Outpatient Established Lo w MDM 20-29 Min Completed 12/20/2020 27413 Office/Outpatient Established Lo w MDM 20-29 Min Completed 12/13/2020 41723 Office/Outpatient Established Mo d MDM 30-39 Min Completed 12/13/2020 06190 Office/Outpatient Established Mo d MDM 30-39 Min Completed 12/13/2020 96562 EKG/Interpretation & Report Comp leted 12/13/2020 11669 EKG/Interpretation & Report Comp leted 10/25/2020 78503 Office/Outpatient Established Mo d MDM 30-39 Min Completed 08/07/2020 88420 Office/Outpatient Established Mo d MDM 30-39 Min Completed 10/06/2013 [id number] Colonoscopy Completed 06/16/2006 [id number] Colonoscopy Completed 12/12/2005 [id number] Mammogram Completed Medical Devices Description No Information Available Encounters Type Date Location Provider Dx Diagnosis Office Visit 01/03/2021 11:40a [facility] 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 Balbina Vincent ne, CLIENT FINANCE ANALYST N39.0 Urinary tract infection, site not specif ied R06.02 Shortness of breath E87.6 Hypokalemia Z79.01 intermediate (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s S41.111A Laceration w/o foreign body of right upper arm, init encntr W10.8xxA Fall (on) (from) other stair s and steps, initial encounter Z23 Encounter for immunization Office Visit 12/13/2020 3:20p [facility] 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 Sameer Tristan MD 01/05/2021 Z95.5 Presence of coronary angioplasty implant and graft Sameer Tristan MD 01/05/2021 E87.6 Hypokalemia Sameer chapman MD 01/05/2021 F41.9 Anxiety disorder, unspecified Co tamia Tristan MD 01/05/2021 I35.0 Nonrheumatic aortic (valve) sten osis Sameer Tristan MD 01/05/2021 Z95.0 Presence of cardiac pacemaker Co tamia Tristan MD 01/03/2021 J43.2 Centrilobular emphysema [facility] 01/03/2021 F41.9 Anxiety disorder, unspecified An n [facility] 01/03/2021 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 [facility] 01/03/2021 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 [facility] 01/03/2021 Z51.81 Encounter for therapeutic drug l evel monitoring Protime 01/03/2021 Z79.01 director long term care (current) drug use for prophylactic purposes [facility] 01/03/2021 S75.891D Other specified inju ry of other blood vessels at hip and thigh level, right leg, subsequent encounter Protime 12/27/2020 S75.891D Other specified inju ry of other blood vessels at hip and thigh level, right leg, subsequent encounter [facility] 12/27/2020 S75.891D Other specified inju ry of other blood vessels at hip and thigh level, right leg, subsequent encounter Protime 12/27/2020 Z79.01 intermediate (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s [facility] 12/27/2020 Z79.01 manager terminal (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s Protime 12/27/2020 Z51.81 Encounter for therapeutic drug l evel monitoring [facility] 12/27/2020 Z51.81 Encounter for therapeutic drug l evel monitoring Protime 12/20/2020 Z51.81 Encounter for therapeutic drug l evel monitoring [facility] 12/20/2020 Z51.81 Encounter for therapeutic drug l evel monitoring Protime 12/20/2020 Z79.01 manager terminal (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s [facility] 12/20/2020 Z79.01 manager terminal (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s [facility] 12/20/2020 S75.891D Other specified inju ry of other blood vessels at hip and thigh level, right leg, subsequent encounter [facility] 12/20/2020 N39.0 Urinary tract infection, site no t specified [facility] 12/20/2020 S75.891D Other specified inju ry of other blood vessels at hip and thigh level, right leg, subsequent encounter [facility] 12/20/2020 R06.02 Shortness of breath Balbina Pearl Frank, [facility] 12/20/2020 E87.6 Hypokalemia Bal[facility] Pearl Frank[facility] 12/20/2020 Z79.01 intermediate (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s [facility] 12/20/2020 S41.111A Laceration without f oreign body of right upper arm, initial encounter [facility] 12/20/2020 W10.8xxA Fall (on) (from) other stairs an d steps, initial encounter Balbina [facility] 12/20/2020 Z23 Encounter for immunization [facility] Frank, [facility] 12/13/2020 Z51.81 Encounter for therapeutic drug l evel monitoring [facility] 12/13/2020 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 Balbina Pearl Zac, [facility] 12/13/2020 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 [facility] 12/13/2020 Z79.01 manager terminal (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s Bal[facility] 12/13/2020 E83.42 Hypomagnesemia [facility] 12/13/2020 J44.1 Chronic obstructive pulmonary disease with (acute) exacerbation Balbina Pearl Zac, [facility] 12/13/2020 Z87.891 Personal history of nicotine dep endence Balbina Pearl Frank, [facility] 12/13/2020 Z51.81 Encounter for therapeutic drug l evel monitoring [facility] 12/13/2020 S75.891D Other specified inju ry of other blood vessels at hip and thigh level, right leg, subsequent encounter [facility] Crespo, [facility] 12/13/2020 Z79.01 intermediate (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s [facility] C[facility] 12/13/2020 R79.1 Abnormal coagulation profile [facility] 12/13/2020 D72.829 Elevated white blood cell count, unspecified [facility] 12/13/2020 Z79.01 intermediate (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s Pro[facility] 12/13/2020 S75.891D Other specified inju ry of other blood vessels at hip and thigh level, right leg, subsequent encounter Protime 12/13/2020 Z98.61 Coronary angioplasty status [facility] C[facility] 12/13/2020 Z95.810 Presence of automatic (implantab le) cardiac defibrillator [facility] 12/11/2020 R06.02 Shortness of breath Grady le JR, PA 12/04/2020 E87.6 Hypokalemia [facility] 12/04/2020 E87.6 Hypokalemia Lab Schedule 11/30/2020 Z51.81 Encounter for therapeutic drug l evel monitoring [facility] C[facility] 11/30/2020 I10 Essential (primary) hypertension [facility] 11/30/2020 Z79.01 manager terminal (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s [facility] 11/30/2020 Z51.81 Encounter for therapeutic drug l evel monitoring Protime 11/30/2020 S75.891D Other specified inju ry of other blood vessels at hip and thigh level, right leg, subsequent encounter [facility] 11/30/2020 Z79.01 intermediate (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s Protime 11/30/2020 I10 Essential (primary) hypertension Lab Schedule 11/30/2020 S75.891D Other specified inju ry of other blood vessels at hip and thigh level, right leg, subsequent encounter Protime 11/30/2020 E87.6 Hypokalemia [facility] 11/30/2020 E87.6 Hypokalemia Lab Schedule 10/25/2020 Z51.81 Encounter for therapeutic drug l evel monitoring Balbina Crespo, CLIENT FINANCE ANALYST 10/25/2020 Z51.81 Encounter for therapeutic drug l evel monitoring Protime 10/25/2020 Z79.01 manager terminal (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s [facility] 10/25/2020 Z79.01 intermediate (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s Protime 10/25/2020 S75.891D Other specified inju ry of other blood vessels at hip and thigh level, right leg, subsequent encounter [facility] Crespo, [facility] 10/25/2020 I35.0 Nonrheumatic aortic (valve) sten osis Frederick Tristan, DO 10/25/2020 S75.891D Other specified inju ry of other blood vessels at hip and thigh level, right leg, subsequent encounter Protime 10/25/2020 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 with Frederick Tristan, DO 10/25/2020 I50.22 Chronic systolic (congestive) he art failure Frederick Tristan, DO 10/25/2020 I44.2 Atrioventricular block, complete Frederick Tristan, DO 10/25/2020 I10 Essential (primary) hypertension Frederick Tristan, DO 10/25/2020 Z79.01 manager terminal (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s Frederick Tristan, DO 10/25/2020 Z51.81 Encounter for therapeutic drug l evel monitoring Frederick Tristan, DO 09/11/2020 Z51.81 Encounter for therapeutic drug l evel monitoring [facility] 09/11/2020 Z51.81 Encounter for therapeutic drug l evel monitoring Protime 09/11/2020 Z79.01 intermediate (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s [facility] Crespo, [facility] 09/11/2020 Z79.01 intermediate (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s Protime 09/11/2020 S75.891D Other specified inju ry of other blood vessels at hip and thigh level, right leg, subsequent encounter [facility] Crespo, [facility] 09/11/2020 S75.891D Other specified inju ry of other blood vessels at hip and thigh level, right leg, subsequent encounter Protime 09/05/2020 I10 Essential (primary) hypertension [facility] Crespo, [facility] 09/05/2020 Z51.81 Encounter for therapeutic drug l evel monitoring Balbina Crespo, [facility] 09/05/2020 E87.6 Hypokalemia [facility] Crespo, [facility] 09/05/2020 Z51.81 Encounter for therapeutic drug l evel monitoring Protime 09/05/2020 Z79.01 manager terminal (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s [facility] Crespo, [facility] 09/05/2020 Z79.01 manager terminal (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s Protime 09/05/2020 S75.891D Other specified inju ry of other blood vessels at hip and thigh level, right leg, subsequent encounter [facility] C[facility], [facility] 09/05/2020 S75.891D Other specified inju ry of other blood vessels at hip and thigh level, right leg, subsequent encounter Protime 08/28/2020 Z51.81 Encounter for therapeutic drug l evel monitoring Bal[facility]ina Crespo, [facility] 08/28/2020 Z51.81 Encounter for therapeutic drug l evel monitoring Protime 08/28/2020 Z79.01 manager terminal (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s Bal[facility]ina Crespo, [facility] 08/28/2020 Z79.01 intermediate (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s Protime 08/28/2020 S75.891D Other specified inju ry of other blood vessels at hip and thigh level, right leg, subsequent encounter [facility] 08/28/2020 S75.891D Other specified inju ry of other blood vessels at hip and thigh level, right leg, subsequent encounter Protime 08/22/2020 Z51.81 Encounter for therapeutic drug l evel monitoring Protime 08/22/2020 Z79.01 manager terminal (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s Protime 08/22/2020 S75.891D Other specified inju ry of other blood vessels at hip and thigh level, right leg, subsequent encounter Protime 08/14/2020 Z51.81 Encounter for therapeutic drug l evel monitoring [facility] Crespo, [facility] 08/14/2020 Z51.81 Encounter for therapeutic drug l evel monitoring Protime 08/14/2020 S75.891D Other specified inju ry of other blood vessels at hip and thigh level, right leg, subsequent encounter [facility] 08/14/2020 S75.891D Other specified inju ry of other blood vessels at hip and thigh level, right leg, subsequent encounter Protime 08/14/2020 Z79.01 intermediate (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s [facility] 08/14/2020 Z79.01 intermediate (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s Protime 08/07/2020 Z51.81 Encounter for therapeutic drug l evel monitoring [facility] 08/07/2020 I10 Essential (primary) hypertension NICKY Morris JR 08/07/2020 S75.891D Other specified inju ry of other blood vessels at hip and thigh level, right leg, subsequent encounter [facility] 08/07/2020 Z79.01 intermediate (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s NICKY Morris JR 08/07/2020 E78.00 Pure hypercholesterolemia, unspe cified NICKY Morris JR 08/07/2020 Z51.81 Encounter for therapeutic drug l evel monitoring Protime 08/07/2020 Z79.01 intermediate (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s [facility] 08/07/2020 R01.1 Cardiac murmur, unspecified NICKY Cleveland JR 08/07/2020 S75.891D Other specified inju ry of other blood vessels at hip and thigh level, right leg, subsequent encounter [facility] 08/07/2020 I73.9 Peripheral vascular disease, uns pecified NICKY Morris JR 08/07/2020 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 with NICKY Morris JR 08/07/2020 E03.9 Hypothyroidism, unspecified NICKY Cleveland JR 08/07/2020 Z79.01 intermediate (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s [facility]time 08/07/2020 [...] l evel monitoring ELENA Lucas 07/17/2020 Z79.01 intermediate (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s [facility] 07/17/2020 Z79.01 intermediate (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s ELENA Lucas 07/17/2020 S75.891D Other specified inju ry of other blood vessels at hip and thigh level, right leg, subsequent encounter [facility] 07/17/2020 S75.891D Other specified inju ry of other blood vessels at hip and thigh level, right leg, subsequent encounter ELENA Lucas Plan of Treatment Future Appointment(s):* 04/09/2021 9:40 am - Sameer Tristan MD at [facility] * 01/19/2021 11:00 am - Jean at [facility] * 02/07/2021 8:00 am - ELENA Lucas at [facility] 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
--- OUTSIDE RECORDS SUMMARY | 2021-01-09 15:42 | CCD | Continuity of Care Document ---
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 O nset: 01/25/1997 Injury Blood [...] every 12 hours 14caps N39.0 Balbina Crespo, [facility] 12/20 - 12/20/2020 Medications Administered in Office Medication SIG Qnty Indications Ordering Provider Date Administration Of Flu Vaccine Inj ection Balbina Crespo [facility] 12/20/2020 Immunization Adminstration,1 Vaccine/Tox oid Injection Balbina Crespo [facility] 12/20/2020 Covid-19 vaccine, Unspecified Inj ection Unknown [...] CPT Code Status Date Vaccine Lot # [id number] Given 12/20/2020 Adacel- Tetanus Diphtheria P ertussis [id number] 40585 Given 12/20/2020 Influenza Vaccin e Quadrivalent Preser/Antibiotic Free Im Use 86112 Given 12/20/2020 Influenza Vaccin e Quadrivalent Preser/Antibiotic Free Im Use [id number] 38728 Given 12/20/2020 Adacel- Tetanus Diphtheria P ertussis 49244 Given 12/29/2019 Influenza Vaccin e Quadrivalent Preser/Antibiotic Free Im Use 44360 Given 12/28/2018 Influenza Vaccin e Quadrivalent Preser/Antibiotic Free Im Use [id number] 79803 Given 01/05/2018 Influenza Virus Vaccine, Quadrivalent ([id number]), Derived From 0 Given 12/02/2017 Shingrix U-Td Given 10/28/2017 Td(Adult)(Tetanus, Diphtheri a) unspecified 71784 Given 09/09/2017 Shingrix 80536 Given 01/01/2017 Influenza Vaccin e Quadrivalent Preser/Antibiotic Free Im Use 938850 Q2037 Given 01/16/2016 Fluvirin Virus Vaccine 75192 01 Q2037 Given 12/23/2014 Fluvirin Virus Vaccine 65330 01 05377 Given 04/29/2014 Prevnar 13 [id number] Q2037 Given 01/12/2014 Fluvirin Virus Vaccine 69289 01 07964 Given 01/23/2007 Pneumovax 23 59629 Given 08/20/2005 Tetanus/Diptheria(Td)Toxoids Preservative Free 25444 Given 07/26/1997 Pneumovax 23 [id number] Refused 12/20/2011 [...] H/L Range Note Laboratory test finding 01/05/2021 [place] [facility] Administrative [facility] Animal Laboratory Helper: Dr Sameer Tristan [place], [place] [id number] [phone] Magnesium 2.1 mg/dL 1.8 - 2.4 Comprehensive Chem Profile 01/05/2021 [place] lorri Echevraria Animal Laboratory Helper: Dr [place]er [place] [address] [phone] Glucose 100 mg/dL High 74 - 99 [...] 60 mL/min >60 2 Lipid Profile 01/05/2021 [place] Neel[facility] , Animal Laboratory Helper: Dr Sameer Tristan [place], [place] [address] [phone] Cholesterol 133 mg/dL 131 - 200 Triglycerides 85 mg/dL 30 - 150 HDL Cholesterol 47 mg/dL 35 - 60 LDL (Calculated) 69 CALC 50 - 159 Laboratory test finding 01/05/2021 [place] [facility] Administrative Assistant [facility] Animal Laboratory Helper: Dr [place] [address] [phone] Thyroid Stimulating Hormone 4.53 uIU/mL High 0.3 6 - 3.74 Complete Blood Count 01/05/2021 [place] [facility] Animal Laboratory Helper: Dr [place] [address] [phone] WBC 9.1 x10*3/UL 4.1 - 10.9 RBC [...] Wi-Inr Inr 1.9 Basic Metabolic Panel 12/20/2020 [place] [facility] Animal Laboratory Helper: [place] [address] [phone] Glucose 108 mg/dL High 74 - 99 [...] Low >60 4 Ua Dipstick Only 12/20/2020 [facility] , Animal Laboratory Helper: [place] [address] [phone] Urine Color YELLOW Yellow Urine Appearance CLOUDY Abnormal Clear Urine PH 6.0 units 5.0 - 9.0 Urine Specific [place] 1.010 1.005 - 1.030 Urine Leukocytes LARGE Abnormal Negative Urine Blood SMALL Abnormal Negative Urine Protein 1+ Abnormal Negative -Trace Urine Glucose NEGATIVE mg/dL Negative Urine Nitrite POSITIVE Abnormal Negative Urine Ketone NEGATIVE mg/dL Negative Urine Bilirubin NEGATIVE Negative Urine Urobilinogen 0.2 mg/dL 0.2 - 1.0 Laboratory test finding 12/20/2020 [facility] [address] [place] [address] [phone] Urine Culture FULL REPORT IN L <SEE NOTE> Normal 5 Complete Blood Count 12/20/2020 [place] Wound Care Coordinator lorri quezada Animal Laboratory Helper: [place] [address] [phone] WBC 11.6 x10*3/UL High 4.1 - 10.9 [...] Wi-Inr Inr 4.8 Complete Blood Count 12/13/2020 [place] [facility] Care Coordinator [facility] Animal Laboratory Helper: [place] [address] [phone] WBC 14.4 x10*3/UL High 4.1 - 10.9 [...] 7.8 Basic Metabolic Panel 12/13/2020 [facility], Animal Laboratory Helper: [place] [address] [phone] Glucose 120 mg/dL High 74 - 99 [...] mL/min >60 9 Laboratory test finding 12/13/2020 [facility], Animal Laboratory Helper: Dr [place]er [place] [address] [phone] Magnesium 1.5 mg/dL Low 1.8 - 2.4 Laboratory test [facility]: [place] [address] [phone] Potassium 3.9 mEq/L 3.5 - 5.1 Basic Metabolic Panel 11/30/2020 [facility] Animal Laboratory Helper: Dr Sameer [place], [place] [address]46 [phone] Glucose 94 mg/dL 74 - 99 10 [...] Wi-Inr Inr 3.1 Laboratory test finding 11/30/2020 [place] Production Administrative Assistant lorri quintero Animal Laboratory Helper: [place] [address] [phone] Magnesium 1.3 mg/dL Low 1.8 - 2.4 Complete Blood Count 10/25/2020 [place] lorri Ness Animal Laboratory Helper: [place] [address] [phone] WBC 10.3 x10*3/UL 4.1 - 10.9 RBC [...] 2.0 - 7.8 Comprehensive Chem Profile 10/25/2020 [place] lorri Echevarria Animal Laboratory Helper: [place] [address] [phone] Glucose 100 mg/dL High 74 - 99 [...] Wi-Inr Inr 3.4 Complete Blood Count 09/05/2020 [place] [facility], [facility] Animal Laboratory Helper: [place] [address] [phone] WBC 12.1 x10*3/UL High 4.1 - 10.9 [...] 2.0 - 7.8 Basic Metabolic Panel 09/05/2020 [place] [facility] Animal Laboratory Helper: Dr [place] [address] [phone] Glucose 108 mg/dL High 74 - 99 [...] mL/min >60 17 Laboratory test finding 09/05/2020 [place] Production Administrative Assistant [facility] Animal Laboratory Helper: [place] [address] [phone] Magnesium 1.6 mg/dL Low 1.8 - 2.4 Laboratory test finding 08/28/2020 [facility] In[facility] 3.7 Laboratory test finding 08/22/2020 [facility] Inr 4.1 Laboratory test finding 08/14/2020 Wi-In[facility] Inr 3.9 Laboratory test finding 08/07/2020 Wi-Inr Inr 1.5 Complete Blood Count 08/07/2020 [place] [facility] Coord[facility] s [facility] Animal Laboratory Helper: Dr [place] [address] [phone] WBC 10.6 x10*3/UL 4.1 - 10.9 RBC [...] 2.0 - 7.8 Basic Metabolic Panel 08/07/2020 [place] [facility] Animal Laboratory Helper: [place] [address] [phone] Glucose 103 mg/dL High 74 - 99 [...] mL/min >60 20 Coronavirus 2019 Nasopharygeal 07/28/[address] [address] [phone] Coronavirus 2019 Nasopharygeal ASSAY INFORMATIO <SEE N OTE> 21 Laboratory test finding 07/17/2020 Wi-Inr Inr 3.2 Coronavirus 2019 Nasopharygeal 07/15/[address] [address] [phone] Coronavirus 2019 Nasopharygeal ASSAY INFORMATIO <SEE N OTE> 22 1 100-125 mg/dL PRE-DIABET ES/FASTING >126 mg/dL DIABETES/FASTING 2 CHRONIC KIDNEY DISEASE STAGI NG PER NKF STAGE I & II GFR >= 60 NORMAL TO MILDLY DECREASED STAGE III GFR 30-59 MODERATELY DECREASED STAGE IV GFR 15-29 SEVERELY DECREASED STAGE V GFR <15 VERY LITTLE GFR LEFT ESRD GFR <15 ON CONSTRUCTION TECHNICIAN 3 100-125 mg/dL PRE-DIABET ES/FASTING >126 mg/dL DIABETES/FASTING 4 CHRONIC KIDNEY DISEASE STAGI NG PER NKF STAGE I & II GFR >= 60 NORMAL TO MILDLY DECREASED STAGE III GFR 30-59 MODERATELY DECREASED STAGE IV GFR 15-29 SEVERELY DECREASED STAGE V GFR <15 VERY LITTLE GFR LEFT ESRD GFR <15 ON CONSTRUCTION TECHNICIAN 5 FULL REPORT IN LAB NOTES (eC [...] LITTLE GFR LEFT ESRD GFR <15 ON CONSTRUCTION TECHNICIAN 10 100-125 mg/dL PRE-DIABET ES/FASTING >126 mg/dL DIABETES/FASTING 11 NOTE: RESULT VERIFIED. 12 CHRONIC KIDNEY DISEASE STAGI NG PER NKF STAGE I & II GFR >= 60 NORMAL TO MILDLY DECREASED STAGE III GFR 30-59 MODERATELY DECREASED STAGE IV GFR 15-29 SEVERELY DECREASED STAGE V GFR <15 VERY LITTLE GFR LEFT ESRD GFR <15 ON CONSTRUCTION TECHNICIAN 13 100-125 mg/dL PRE-DIABET ES/FASTING >126 mg/dL DIABETES/FASTING 14 CHRONIC KIDNEY DISEASE STAGI NG PER NKF STAGE I & II GFR >= 60 NORMAL TO MILDLY DECREASED STAGE III GFR 30-59 MODERATELY DECREASED STAGE IV GFR 15-29 SEVERELY DECREASED STAGE V GFR <15 VERY LITTLE GFR LEFT ESRD GFR <15 ON CONSTRUCTION TECHNICIAN 15 NOTE: RESULT VERIFIED. 16 100-125 mg/dL PRE-DIABET ES/FASTING >126 mg/dL DIABETES/FASTING 17 CHRONIC KIDNEY DISEASE STAGI NG PER NKF STAGE I & II GFR >= 60 NORMAL TO MILDLY DECREASED STAGE III GFR 30-59 MODERATELY DECREASED STAGE IV GFR 15-29 SEVERELY DECREASED STAGE V GFR <15 VERY LITTLE GFR LEFT ESRD GFR <15 ON CONSTRUCTION TECHNICIAN 18 100-125 mg/dL PRE-DIABET ES/FASTING >126 mg/dL DIABETES/FASTING 19 NOTE: RESULT VERIFIED. 20 CHRONIC KIDNEY DISEASE STAGI NG PER NKF STAGE I & II GFR >= 60 NORMAL TO MILDLY DECREASED STAGE III GFR 30-59 MODERATELY DECREASED STAGE IV GFR 15-29 SEVERELY DECREASED STAGE V GFR <15 VERY LITTLE GFR LEFT ESRD GFR <15 ON CONSTRUCTION TECHNICIAN 21 ASSAY INFORMATION: Real Time RT-PCR NOTE: The COVID-19 assay has been cleared by the U.S. Food and Drug Administration under the Emergency Use Authorization (EUA). [email or web address] and [email or web address] are designated as high complexity laboratories by the Clinical Laboratory Improvement Amendments of 1988(CLIA) and are qualified to perform this test. Not Detected 22 ASSAY INFORMATION: Real Time RT-PCR NOTE: The COVID-19 assay has been cleared by the U.S. Food and Drug Administration under the Emergency Use Authorization (EUA). [email or web address] and [email or web address] are designated as high complexity laboratories by the Clinical Laboratory Improvement Amendments of 1988(CLIA) and are qualified to perform this test. Not Detected Procedures Date Code Description Status 01/03/2021 76690 Office/Outpatient Established Lo w MDM 20-29 Min Completed 12/20/2020 82621 Office/Outpatient Established Lo w MDM 20-29 Min Completed 12/13/2020 39115 Office/Outpatient Established Mo d MDM 30-39 Min Completed 12/13/2020 54969 Office/Outpatient Established Mo d MDM 30-39 Min Completed 12/13/2020 90831 EKG/Interpretation & Report Comp leted 12/13/2020 99534 EKG/Interpretation & Report Comp leted 10/25/2020 08239 Office/Outpatient Established Mo d MDM 30-39 Min Completed 08/07/2020 19648 Office/Outpatient Established Mo d MDM 30-39 Min Completed 10/06/2013 [id number] Colonoscopy Completed 06/16/2006 [id number] Colonoscopy Completed 12/12/2005 [id number] Mammogram Completed Medical Devices Description No Information Available Encounters Type Date Location Provider Dx Diagnosis Office Visit 01/03/2021 11:40a [facility] 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 Balbina Vincent ne, PROFESSOR OF ANTHROPOLOGY N39.0 Urinary tract infection, site not specif ied R06.02 Shortness of breath E87.6 Hypokalemia Z79.01 skilled nursing (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s S41.111A Laceration w/o foreign body of right upper arm, init encntr W10.8xxA Fall (on) (from) other stair s and steps, initial encounter Z23 Encounter for immunization Office Visit 12/13/2020 3:20p [facility] 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 Sameer Tristan MD 01/05/2021 Z95.5 Presence of coronary angioplasty implant and graft Sameer Tristan MD 01/05/2021 E87.6 Hypokalemia Sameer chapman MD 01/05/2021 F41.9 Anxiety disorder, unspecified Co tamia Tristan MD 01/05/2021 I35.0 Nonrheumatic aortic (valve) sten osis Sameer Tristan MD 01/05/2021 Z95.0 Presence of cardiac pacemaker Bennett Tristan MD 01/03/2021 J43.2 Centrilobular emphysema Balbina Caballero [facility] 01/03/2021 F41.9 Anxiety disorder, unspecified An n Pearl Frank [facility] 01/03/2021 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 Balbina Crespo [facility] 01/03/2021 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 Balbina Crespo [facility] 01/03/2021 Z51.81 Encounter for therapeutic drug l evel monitoring Protime 01/03/2021 Z79.01 long-term (current) drug use for prophylactic purposes Balbina Crespo [facility] 01/03/2021 S75.891D Other specified inju ry of other blood vessels at hip and thigh level, right leg, subsequent encounter Protime 12/27/2020 S75.891D Other specified inju ry of other blood vessels at hip and thigh level, right leg, subsequent encounter Balbina Crespo [facility] 12/27/2020 S75.891D Other specified inju ry of other blood vessels at hip and thigh level, right leg, subsequent encounter Protime 12/27/2020 Z79.01 skilled nursing (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s Balbina Crespo [facility] 12/27/2020 Z79.01 skilled nursing (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s Protime 12/27/2020 Z51.81 Encounter for therapeutic drug l evel monitoring Balbina Crespo [facility] 12/27/2020 Z51.81 Encounter for therapeutic drug l evel monitoring Protime 12/20/2020 Z51.81 Encounter for therapeutic drug l evel monitoring Balbina Crespo [facility] 12/20/2020 Z51.81 Encounter for therapeutic drug l evel monitoring Protime 12/20/2020 Z79.01 electric power line examiner (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s Balbina Crespo [facility] 12/20/2020 Z79.01 electric power line examiner (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s [facility] 12/20/2020 S75.891D Other specified inju ry of other blood vessels at hip and thigh level, right leg, subsequent encounter Balbina Crespo, [facility] 12/20/2020 N39.0 Urinary tract infection, site no t specified Balbina Crespo, [facility] 12/20/2020 S75.891D Other specified inju ry of other blood vessels at hip and thigh level, right leg, subsequent encounter [facility] 12/20/2020 R06.02 Shortness of breath Balbina Crespo, [facility] 12/20/2020 E87.6 Hypokalemia Balbina Pearl Frank, [facility] 12/20/2020 Z79.01 skilled nursing (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s Balbina Crespo, [facility] 12/20/2020 S41.111A Laceration without f oreign body of right upper arm, initial encounter Balbina Pearl Frank [facility] 12/20/2020 W10.8xxA Fall (on) (from) other stairs an d steps, initial encounter Balbina Pearl Frank, [facility] 12/20/2020 Z23 Encounter for immunization Balbina Frank, [facility] 12/13/2020 Z51.81 Encounter for therapeutic drug l evel monitoring Balbina Crespo, [facility] 12/13/2020 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 Balbina Crespo, [facility] 12/13/2020 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 Balbina Pearl Frank [facility] 12/13/2020 Z79.01 skilled nursing (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s Balbina Pearl Frank [facility] 12/13/2020 E83.42 Hypomagnesemia Balbina Pearl Frank, [facility] 12/13/2020 J44.1 Chronic obstructive pulmonary disease with (acute) exacerbation Balbina Pearl Zac [facility] 12/13/2020 Z87.891 Personal history of nicotine dep endence Balbina Pearl Frank [facility] 12/13/2020 Z51.81 Encounter for therapeutic drug l evel monitoring [facility] 12/13/2020 S75.891D Other specified inju ry of other blood vessels at hip and thigh level, right leg, subsequent encounter Balbina Crespo, [facility] 12/13/2020 Z79.01 electric power line examiner (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s Balbina Crespo, [facility] 12/13/2020 R79.1 Abnormal coagulation profile Balbina Crespo, [facility] 12/13/2020 D72.829 Elevated white blood cell count, unspecified Balbina Crespo, [facility] 12/13/2020 Z79.01 skilled nursing (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s Protime 12/13/2020 S75.891D Other specified inju ry of other blood vessels at hip and thigh level, right leg, subsequent encounter Protime 12/13/2020 Z98.61 Coronary angioplasty status Balbina Crespo, [facility] 12/13/2020 Z95.810 Presence of automatic (implantab le) cardiac defibrillator Balbina Crespo [facility] 12/11/2020 R06.02 Shortness of breath Grady le JR, NICKY 12/04/2020 E87.6 Hypokalemia Balbina Crespo, [facility] 12/04/2020 E87.6 Hypokalemia Lab Schedule 11/30/2020 Z51.81 Encounter for therapeutic drug l evel monitoring Balbina Crespo, [facility] 11/30/2020 I10 Essential (primary) hypertension Balbina Crespo, [facility] 11/30/2020 Z79.01 skilled nursing (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s Balbina Crespo, [facility] 11/30/2020 Z51.81 Encounter for therapeutic drug l evel monitoring Protime 11/30/2020 S75.891D Other specified inju ry of other blood vessels at hip and thigh level, right leg, subsequent encounter Balbina Crespo [facility] 11/30/2020 Z79.01 skilled nursing (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s Protime 11/30/2020 I10 Essential (primary) hypertension Lab Schedule 11/30/2020 S75.891D Other specified inju ry of other blood vessels at hip and thigh level, right leg, subsequent encounter Protime 11/30/2020 E87.6 Hypokalemia Balbina Crespo, [facility] 11/30/2020 E87.6 Hypokalemia Lab Schedule 10/25/2020 Z51.81 Encounter for therapeutic drug l evel monitoring Balbina Crespo, [facility] 10/25/2020 Z51.81 Encounter for therapeutic drug l evel monitoring Protime 10/25/2020 Z79.01 electric power line examiner (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s Balbina Crespo, [facility] 10/25/2020 Z79.01 electric power line examiner (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s Protime 10/25/2020 S75.891D Other specified inju ry of other blood vessels at hip and thigh level, right leg, subsequent encounter Balbina Crespo, [facility] 10/25/2020 I35.0 Nonrheumatic aortic (valve) sten osis Frederick Tristan, DO 10/25/2020 S75.891D Other specified inju ry of other blood vessels at hip and thigh level, right leg, subsequent encounter Protime 10/25/2020 I25.10 Atherosclerotic heart disease of [place] coronary artery with Frederick Tristan, DO 10/25/2020 I50.22 Chronic systolic (congestive) he art failure Frederick Tristan, DO 10/25/2020 I44.2 Atrioventricular block, complete Frederick Tristan, DO 10/25/2020 I10 Essential (primary) hypertension Frederick Tristan, DO 10/25/2020 Z79.01 skilled nursing (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s Ferderick Tristan, DO 10/25/2020 Z51.81 Encounter for therapeutic drug l evel monitoring Frederick Tristan, DO 09/11/2020 Z51.81 Encounter for therapeutic drug l evel monitoring Balbina Crespo, [facility] 09/11/2020 Z51.81 Encounter for therapeutic drug l evel monitoring Protime 09/11/2020 Z79.01 electric power line examiner (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s Balbina Crespo, [facility] 09/11/2020 Z79.01 skilled nursing (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s Protime 09/11/2020 S75.891D Other specified inju ry of other blood vessels at hip and thigh level, right leg, subsequent encounter Balbina Crespo, [facility] 09/11/2020 S75.891D Other specified inju ry of other blood vessels at hip and thigh level, right leg, subsequent encounter Protime 09/05/2020 I10 Essential (primary) hypertension Balbina Crespo, [facility] 09/05/2020 Z51.81 Encounter for therapeutic drug l evel monitoring Balbina Crespo, [facility] 09/05/2020 E87.6 Hypokalemia Balbina Crespo, [facility] 09/05/2020 Z51.81 Encounter for therapeutic drug l evel monitoring Protime 09/05/2020 Z79.01 skilled nursing (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s Balbina Crespo, [facility] 09/05/2020 Z79.01 electric power line examiner (current) use of 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s Protime 09/05/2020 S75.891D Other specified inju ry of other blood vessels at hip and thigh level, right leg, subsequent encounter Balbina Crespo, [facility] 09/05/2020 S75.891D Other specified inju ry of other blood vessels at hip and thigh level, right leg, subsequent encounter Protime 08/28/2020 Z51.81 Encounter for therapeutic drug l evel monitoring Balbina Crespo, [facility] 08/28/2020 Z51.81 Encounter for therapeutic drug l evel monitoring Protime 08/28/2020 Z79.01 electric power line examiner (current) use of 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s Balbina Crespo, [facility] 08/28/2020 Z79.01 skilled nursing (current) use of 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s Protime 08/28/2020 S75.891D Other specified inju ry of other blood vessels at hip and thigh level, right leg, subsequent encounter Balbina Crespo, [facility] 08/28/2020 S75.891D Other specified inju ry of other blood vessels at hip and thigh level, right leg, subsequent encounter Protime 08/22/2020 Z51.81 Encounter for therapeutic drug l evel monitoring Protime 08/22/2020 Z79.01 electric power line examiner (current) use of 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s Protime 08/22/2020 S75.891D Other specified inju ry of other blood vessels at hip and thigh level, right leg, subsequent encounter Protime 08/14/2020 Z51.81 Encounter for therapeutic drug l evel monitoring Balbina Crespo, [facility] 08/14/2020 Z51.81 Encounter for therapeutic drug l evel monitoring Protime 08/14/2020 S75.891D Other specified inju ry of other blood vessels at hip and thigh level, right leg, subsequent encounter Balbina Crespo [facility] 08/14/2020 S75.891D Other specified inju ry of other blood vessels at hip and thigh level, right leg, subsequent encounter Protime 08/14/2020 Z79.01 electric power line examiner (current) use of 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s Balbina Crespo [facility] 08/14/2020 Z79.01 electric power line examiner (current) use of antic oagulants Protime 08/07/2020 Z51.81 Encounter for therapeutic drug l evel monitoring Balbina Crespo [facility] 08/07/2020 I10 Essential (primary) hypertension NICKY Morris JR 08/07/2020 S75.891D Other specified inju ry of other blood vessels at hip and thigh level, right leg, subsequent encounter Balbina Crespo [facility] 08/07/2020 Z79.01 electric power line examiner (current) use of antic oagulants NICKY Morris JR 08/07/2020 E78.00 Pure hypercholesterolemia, unspe cified NICKY Morris JR 08/07/2020 Z51.81 Encounter for therapeutic drug l evel monitoring Protime 08/07/2020 Z79.01 skilled nursing (current) use of antic oagulants Balbina Crespo [facility] 08/07/2020 R01.1 Cardiac murmur, unspecified Prospere NICKY Philippe JR 08/07/2020 S75.891D Other specified inju ry of other blood vessels at hip and thigh level, right leg, subsequent encounter Protime 08/07/2020 I73.9 Peripheral vascular disease, uns pecified NICKY Morris JR 08/07/2020 I25.10 Atherosclerotic heart disease of [place] coronary artery with NICKY Morris JR 08/07/2020 E03.9 Hypothyroidism, unspecified Robe NICKY Philippe JR 08/07/2020 Z79.01 skilled nursing (current) use of antic oagulants Protime 08/07/2020 [...] l evel monitoring ELENA Lucas 07/17/2020 Z79.01 electric power line examiner (current) use of antic oagulants Protime 07/17/2020 Z79.01 electric power line examiner (current) use of antic oagulants ELENA Lucas 07/17/2020 S75.891D Other specified inju ry of other blood vessels at hip and thigh level, right leg, subsequent encounter Protime 07/17/2020 S75.891D Other specified inju ry of other blood vessels at hip and thigh level, right leg, subsequent encounter ELENA Lucas Plan of Treatment Future Appointment(s):* 04/09/2021 9:40 am - Sameer Tristan MD at [facility] * 01/19/2021 11:00 am - Jean at [facility] * 02/07/2021 8:00 am - ELENA Lucas at [facility] 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
--- OUTSIDE RECORDS SUMMARY | 2021-01-09 15:42 | CCD | Continuity of Care Document ---
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 Name Role Phone Sameer Tristan JR, MD AUTM Unavailable Nicolas Albert MD AUTM [phone] Dick Medina MD AUTM [phone] Servando Collins MD AUTM [phone] Clara Lagunas OD AUTM Unavailable Renetta Swanson MD AUTM [phone] Brenda Mcgraw AUTM [phone] Problems Active Problems Provider Date Anticoagulants Deburr Operator (Current) Use O nset: 01/25/1997 Injury Blood [...] every 12 hours 14caps N39.0 Balbina Crespo, [facility] 12/20 - 12/20/2020 Medications Administered in Office Medication SIG Qnty Indications Ordering Provider Date Administration Of Flu Vaccine Inj ection Balbina Crespo [facility] 12/20/2020 Immunization Adminstration,1 Vaccine/Tox oid Injection Balbina Crespo [facility] 12/20/2020 Covid-19 vaccine, Unspecified Inj ection [...] CPT Code Status Date Vaccine Lot # [id number] Given 12/20/2020 Adacel- Tetanus Diphtheria P ertussis [id number] 30434 Given 12/20/2020 Influenza Vaccin e Quadrivalent Preser/Antibiotic Free Im Use 57609 Given 12/20/2020 Influenza Vaccin e Quadrivalent Preser/Antibiotic Free Im Use [id number] 89999 Given 12/20/2020 Adacel- Tetanus Diphtheria P ertussis 53877 Given 12/29/2019 Influenza Vaccin e Quadrivalent Preser/Antibiotic Free Im Use 82251 Given 12/28/2018 Influenza Vaccin e Quadrivalent Preser/Antibiotic Free Im Use 853113 38076 Given 01/05/2018 Influenza Virus Vaccine, Quadrivalent ([id number]), Derived From 6 Given 12/02/2017 Shingrix U-Td Given 10/28/2017 Td(Adult)(Tetanus, Diphtheri a) unspecified 96395 Given 09/09/2017 Shingrix 17249 Given 01/01/2017 Influenza Vaccin e Quadrivalent Preser/Antibiotic Free Im Use 032237 Q2037 Given 01/16/2016 Fluvirin Virus Vaccine 18355 01 Q2037 Given 12/23/2014 Fluvirin Virus Vaccine 76700 01 47147 Given 04/29/2014 Prevnar 13 [id number] Q2037 Given 01/12/2014 Fluvirin Virus Vaccine 04995 01 52378 Given 01/23/2007 Pneumovax 23 08296 Given 08/20/2005 Tetanus/Diptheria(Td)Toxoids Preservative Free 78134 Given 07/26/1997 Pneumovax 23 [id number] Refused 12/20/2011 [...] H/L Range Note Laboratory test finding 01/05/2021 [facility] [employer]ipe Layer: Dr Sameer Tristan [place], [place] [id number] [phone] Magnesium 2.1 mg/dL 1.8 - 2.4 Comprehensive Chem Profile 01/05/2021 [facility] Echevarria [employer] [place] [employer] Layer: [place] [address] [phone] Glucose 100 mg/dL High 74 - 99 [...] 60 mL/min >60 2 Lipid Profile 01/05/2021 [facility] , [employer] [place] [employer] Layer: Dr Sameer Tristan [place], [place] [id number] [phone] Cholesterol 133 mg/dL 131 - 200 Triglycerides 85 mg/dL 30 - 150 HDL Cholesterol 47 mg/dL 35 - 60 LDL (Calculated) 69 CALC 50 - 159 Laboratory test finding 01/05/2021 [facility] [employer] [place] [employer] Layer: [place] [address] [phone] Thyroid Stimulating Hormone 4.53 uIU/mL High 0.3 6 - 3.74 Complete Blood Count 01/05/2021 [facility] [employer] [place] [employer] Layer: [place] [address] [phone] WBC 9.1 x10*3/UL 4.1 - 10.9 RBC [...] Wi-Inr Inr 1.9 Basic Metabolic Panel 12/20/2020 [facility] [employer] [place] Layer: [place] [address] [phone] Glucose 108 mg/dL High 74 - 99 [...] Low >60 4 Ua Dipstick Only 12/20/2020 [facility] , [employer] [place] Layer: [place] [address] [phone] Urine Color YELLOW Yellow Urine Appearance CLOUDY Abnormal Clear Urine PH 6.0 units 5.0 - 9.0 Urine Specific [place] 1.010 1.005 - 1.030 Urine Leukocytes LARGE Abnormal Negative Urine Blood SMALL Abnormal Negative Urine Protein 1+ Abnormal Negative -Trace Urine Glucose NEGATIVE mg/dL Negative Urine Nitrite POSITIVE Abnormal Negative Urine Ketone NEGATIVE mg/dL Negative Urine Bilirubin NEGATIVE Negative Urine Urobilinogen 0.2 mg/dL 0.2 - 1.0 Laboratory test finding 12/20/2020 [facility] [address] [place] [address] [phone] Urine Culture FULL REPORT IN L <SEE NOTE> Normal 5 Complete Blood Count 12/20/2020 [facility] lorri quezada [employer] [place] [employer] Layer: [place] [address] [phone] WBC 11.6 x10*3/UL High 4.1 - 10.9 [...] Wi-Inr Inr 4.8 Complete Blood Count 12/13/2020 [facility] [employer] [place] Layer: [place] [address] [phone] WBC 14.4 x10*3/UL High 4.1 - 10.9 [...] 2.0 - 7.8 Basic Metabolic Panel 12/13/2020 [facility], [place] Layer: [place] [address] [phone] Glucose 120 mg/dL High 74 - 99 [...] mL/min >60 9 Laboratory test finding 12/13/2020 [facility], [place] Layer: Dr [place]er [place] [address] [phone] Magnesium 1.5 mg/dL Low 1.8 - 2.4 Laboratory test finding [facility] [place] [facility]: [place] [address] [phone] Potassium 3.9 mEq/L 3.5 - 5.1 Basic Metabolic Panel 11/30/2020 [facility] [employer] [place] Layer: Dr Sameer [place], [place] [address] [phone] Glucose 94 mg/dL 74 - 99 10 [...] Wi-Inr Inr 3.1 Laboratory test finding 11/30/2020 [facility] lorri quintero [employer] [place] Layer: [place] [address] [phone] Magnesium 1.3 mg/dL Low 1.8 - 2.4 Complete Blood Count 10/25/2020 [facility] Ness [employer] [place] Layer: [place] [address] [phone] WBC 10.3 x10*3/UL 4.1 - 10.9 RBC [...] 2.0 - 7.8 Comprehensive Chem Profile 10/25/2020 [facility] Echevarria [employer] [place] Layer: [place] [address] [phone] Glucose 100 mg/dL High 74 - 99 [...] Wi-Inr Inr 3.4 Complete Blood Count 09/05/2020 [facility] [employer] [place] Layer: [place] [address] [phone] WBC 12.1 x10*3/UL High 4.1 - 10.9 [...] 2.0 - 7.8 Basic Metabolic Panel 09/05/2020 [facility] [employer] [place] Layer: [place] [address] [phone] Glucose 108 mg/dL High 74 - 99 [...] mL/min >60 17 Laboratory test finding 09/05/2020 [facility] [employer] [place] Layer: [place] [address] [phone] Magnesium 1.6 mg/dL Low 1.8 - 2.4 Laboratory test finding 08/28/2020 [facility] 3.7 Laboratory test finding 08/22/2020 [facility] 4.1 Laboratory test finding 08/14/2020 [facility] 3.9 Laboratory test finding 08/07/2020 [facility] 1.5 Complete Blood Count 08/07/2020 [facility] [employer] [place] Layer: [place] [address] [phone] WBC 10.6 x10*3/UL 4.1 - 10.9 RBC [...] 2.0 - 7.8 Basic Metabolic Panel 08/07/2020 [facility] [employer] [place] Layer: [place] [address] [phone] Glucose 103 mg/dL High 74 - 99 [...] mL/min >60 20 Coronavirus 2019 Nasopharygeal 07/28/[address] [address] [phone] Coronavirus 2019 Nasopharygeal ASSAY INFORMATIO <SEE N OTE> 21 Laboratory test finding 07/17/2020 [facility] 3.2 Coronavirus 2019 Nasopharygeal 07/15/[address] [address] [phone] Coronavirus 2019 Nasopharygeal ASSAY INFORMATIO <SEE N OTE> 22 1 100-125 mg/dL PRE-DIABET ES/FASTING >126 mg/dL DIABETES/FASTING 2 CHRONIC KIDNEY DISEASE STAGI NG PER NKF STAGE I & II GFR >= 60 NORMAL TO MILDLY DECREASED STAGE III GFR 30-59 MODERATELY DECREASED STAGE IV GFR 15-29 SEVERELY DECREASED STAGE V GFR <15 VERY LITTLE GFR LEFT ESRD GFR <15 [address] TROLLEY AND TAXI 3 100-125 mg/dL PRE-DIABET ES/FASTING >126 mg/dL DIABETES/FASTING 4 CHRONIC KIDNEY DISEASE STAGI NG PER NKF STAGE I & II GFR >= 60 NORMAL TO MILDLY DECREASED STAGE III GFR 30-59 MODERATELY DECREASED STAGE IV GFR 15-29 SEVERELY DECREASED STAGE V GFR <15 VERY LITTLE GFR LEFT ESRD GFR <15 ON INSTRUCTOR BUS TROLLEY AND TAXI 5 FULL REPORT IN LAB NOTES (eC [...] LITTLE GFR LEFT ESRD GFR <15 ON INSTRUCTOR [employer]OL[employer] TAXI 10 100-125 mg/dL PRE-DIABET ES/FASTING >126 mg/dL DIABETES/FASTING 11 NOTE: RESULT VERIFIED. 12 CHRONIC KIDNEY DISEASE STAGI NG PER NKF STAGE I & II GFR >= 60 NORMAL TO MILDLY DECREASED STAGE III GFR 30-59 MODERATELY DECREASED STAGE IV GFR 15-29 SEVERELY DECREASED STAGE V GFR <15 VERY LITTLE GFR LEFT ESRD GFR <15 ON INSTRUCTOR [employer]OL[employer]AXI 13 100-125 mg/dL PRE-DIABET ES/FASTING >126 mg/dL DIABETES/FASTING 14 CHRONIC KIDNEY DISEASE STAGI NG PER NKF STAGE I & II GFR >= 60 NORMAL TO MILDLY DECREASED STAGE III GFR 30-59 MODERATELY DECREASED STAGE IV GFR 15-29 SEVERELY DECREASED STAGE V GFR <15 VERY LITTLE GFR LEFT ESRD GFR <15 ON INSTRU[address] [employer]OL[employer]AXI 15 NOTE: RESULT VERIFIED. 16 100-125 mg/dL PRE-DIABET ES/FASTING >126 mg/dL DIABETES/FASTING 17 CHRONIC KIDNEY DISEASE STAGI NG PER NKF STAGE I & II GFR >= 60 NORMAL TO MILDLY DECREASED STAGE III GFR 30-59 MODERATELY DECREASED STAGE IV GFR 15-29 SEVERELY DECREASED STAGE V GFR <15 VERY LITTLE GFR LEFT ESRD GFR <15 ON INSTRU[address] [employer]OL[employer]AXI 18 100-125 mg/dL PRE-DIABET ES/FASTING >126 mg/dL DIABETES/FASTING 19 NOTE: RESULT VERIFIED. 20 CHRONIC KIDNEY DISEASE STAGI NG PER NKF STAGE I & II GFR >= 60 NORMAL TO MILDLY DECREASED STAGE III GFR 30-59 MODERATELY DECREASED STAGE IV GFR 15-29 SEVERELY DECREASED STAGE V GFR <15 VERY LITTLE GFR LEFT ESRD GFR <15 [address] [employer]OLLEY AND TAXI 21 ASSAY INFORMATION: Real Time RT-PCR NOTE: The COVID-19 assay has been cleared by the U.S. Food and Drug Administration under the Emergency Use Authorization (EUA). [facility] are designated as high complexity laboratories by the Clinical Laboratory Improvement Amendments of 1988(CLIA) and are qualified to perform this test. Not Detected 22 ASSAY INFORMATION: Real Time RT-PCR NOTE: The COVID-19 assay has been cleared by the U.S. Food and Drug Administration under the Emergency Use Authorization (EUA). [facility] the [facility] and [facility] are designated as high complexity laboratories by the Clinical Laboratory Improvement Amendments of 1988(CLIA) and are qualified to perform this test. Not Detected Procedures Date Code Description Status 01/03/2021 82647 Office/Outpatient Established Lo w MDM 20-29 Min Completed 12/20/2020 29836 Office/Outpatient Established Lo w MDM 20-29 Min Completed 12/13/2020 09822 Office/Outpatient Established Mo d MDM 30-39 Min Completed 12/13/2020 02589 Office/Outpatient Established Mo d MDM 30-39 Min Completed 12/13/2020 95750 EKG/Interpretation & Report Comp leted 12/13/2020 34803 EKG/Interpretation & Report Comp leted 10/25/2020 67064 Office/Outpatient Established Mo d MDM 30-39 Min Completed 08/07/2020 36930 Office/Outpatient Established Mo d MDM 30-39 Min Completed 10/06/2013 [id number] Colonoscopy Completed 06/16/2006 [id number] Colonoscopy Completed 12/12/2005 [id number] Mammogram Completed Medical Devices Description No Information Available Encounters Type Date Location Provider Dx Diagnosis Office Visit 01/03/2021 11:40a [facility] 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 Sameer Tristan MD 01/05/2021 Z95.5 Presence of coronary angioplasty implant and graft Sameer Tristan MD 01/05/2021 E87.6 Hypokalemia Sameer chapman MD 01/05/2021 F41.9 Anxiety disorder, unspecified Co tamia Tristan MD 01/05/2021 I35.0 Nonrheumatic aortic (valve) sten osis Sameer Tristan MD 01/05/2021 Z95.0 Presence of cardiac pacemaker Bennett Tristan MD 01/03/2021 J43.2 Centrilobular emphysema Balbina Caballero [facility] 01/03/2021 F41.9 Anxiety disorder, unspecified An n Pearl Frank [facility] 01/03/2021 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 Balbina Crepso [facility] 01/03/2021 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 Balbina Crespo [facility] 01/03/2021 Z51.81 Encounter for therapeutic drug l evel monitoring Protime 01/03/2021 Z79.01 assisted (current) drug use for prophylactic purposes Balbina Crespo [facility] 01/03/2021 S75.891D Other specified inju ry of other blood vessels at hip and thigh level, right leg, subsequent encounter Protime 12/27/2020 S75.891D Other specified inju ry of other blood vessels at hip and thigh level, right leg, subsequent encounter Balbina Crespo [facility] 12/27/2020 S75.891D Other specified inju ry of other blood vessels at hip and thigh level, right leg, subsequent encounter Protime 12/27/2020 Z79.01 long-term (current) use of antic oagulants Balbina Crespo [facility] 12/27/2020 Z79.01 long-term (current) use of antic oagulants Protime 12/27/2020 Z51.81 Encounter for therapeutic drug l evel monitoring Balbina Crespo [facility] 12/27/2020 Z51.81 Encounter for therapeutic drug l evel monitoring Protime 12/20/2020 Z51.81 Encounter for therapeutic drug l evel monitoring Balbina Crespo [facility] 12/20/2020 Z51.81 Encounter for therapeutic drug l evel monitoring Protime 12/20/2020 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 Balbina Crespo [facility] 12/20/2020 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 [facility] 12/20/2020 S75.891D Other specified inju ry of other blood vessels at hip and thigh level, right leg, subsequent encounter Balbina Crespo, [facility] 12/20/2020 N39.0 Urinary tract infection, site no t specified Balbina Crespo, [facility] 12/20/2020 S75.891D Other specified inju ry of other blood vessels at hip and thigh level, right leg, subsequent encounter [facility] 12/20/2020 R06.02 Shortness of breath Balbina Crespo, [facility] 12/20/2020 E87.6 Hypokalemia Balbina Pearl Frank, [facility] 12/20/2020 Z79.01 long-term (current) use of antic oagulants Balbina Crespo, [facility] 12/20/2020 S41.111A Laceration without f oreign body of right upper arm, initial encounter Balbina Pearl Frank [facility] 12/20/2020 W10.8xxA Fall (on) (from) other stairs an d steps, initial encounter Balbina Pearl Frank, [facility] 12/20/2020 Z23 Encounter for immunization Balbina Frank, [facility] 12/13/2020 Z51.81 Encounter for therapeutic drug l evel monitoring Balbina Crespo, [facility] 12/13/2020 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 Balbina Crespo, [facility] 12/13/2020 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 Balbina Pearl Frank [facility] 12/13/2020 Z79.01 long-term (current) use of antic oagulants Balbina Pearl Frank [facility] 12/13/2020 E83.42 Hypomagnesemia Balbina Pearl Frank, [facility] 12/13/2020 J44.1 Chronic obstructive pulmonary disease with (acute) exacerbation Balbina Pearl Zac [facility] 12/13/2020 Z87.891 Personal history of nicotine dep endence Balbina Pearl Frank [facility] 12/13/2020 Z51.81 Encounter for therapeutic drug l evel monitoring [facility] 12/13/2020 S75.891D Other specified inju ry of other blood vessels at hip and thigh level, right leg, subsequent encounter Balbina Crespo, [facility] 12/13/2020 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 Balbina Crespo, [facility] 12/13/2020 R79.1 Abnormal coagulation profile Balbina Crespo, [facility] 12/13/2020 D72.829 Elevated white blood cell count, unspecified Balbina rCespo, [facility] 12/13/2020 Z79.01 long-term (current) use of antic oagulants Protime 12/13/2020 S75.891D Other specified inju ry of other blood vessels at hip and thigh level, right leg, subsequent encounter Protime 12/13/2020 Z98.61 Coronary angioplasty status Balbina Crespo, [facility] 12/13/2020 Z95.810 Presence of automatic (implantab le) cardiac defibrillator Balbina Crespo [facility] 12/11/2020 R06.02 Shortness of breath Grady le JR, NICKY 12/04/2020 E87.6 Hypokalemia Balbina Crespo, [facility] 12/04/2020 E87.6 Hypokalemia Lab Schedule 11/30/2020 Z51.81 Encounter for therapeutic drug l evel monitoring Balbina Crespo, [facility] 11/30/2020 I10 Essential (primary) hypertension Balbina Crespo, [facility] 11/30/2020 Z79.01 long-term (current) use of antic oagulants Balbina Crespo, [facility] 11/30/2020 Z51.81 Encounter for therapeutic drug l evel monitoring Protime 11/30/2020 S75.891D Other specified inju ry of other blood vessels at hip and thigh level, right leg, subsequent encounter Balbina Crespo [facility] 11/30/2020 Z79.01 long-term (current) use of antic oagulants Protime 11/30/2020 I10 Essential (primary) hypertension Lab Schedule 11/30/2020 S75.891D Other specified inju ry of other blood vessels at hip and thigh level, right leg, subsequent encounter Protime 11/30/2020 E87.6 Hypokalemia Balbina Crespo, [facility] 11/30/2020 E87.6 Hypokalemia Lab Schedule 10/25/2020 Z51.81 Encounter for therapeutic drug l evel monitoring Balbina Crespo, [facility] 10/25/2020 Z51.81 Encounter for therapeutic drug l evel monitoring Protime 10/25/2020 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 Balbina Crespo, [facility] 10/25/2020 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 Protime 10/25/2020 S75.891D Other specified inju ry of other blood vessels at hip and thigh level, right leg, subsequent encounter Balbina Crespo, [facility] 10/25/2020 I35.0 Nonrheumatic aortic (valve) sten osis Frederick Tristan, DO 10/25/2020 S75.891D Other specified inju ry of other blood vessels at hip and thigh level, right leg, subsequent encounter Protime 10/25/2020 I25.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 with Frederick Tristan, DO 10/25/2020 I50.22 Chronic systolic (congestive) he art failure Frederick Tristan, DO 10/25/2020 I44.2 Atrioventricular block, complete Frederick Tristan, DO 10/25/2020 I10 Essential (primary) hypertension Frederick Tristan, DO 10/25/2020 Z79.01 long-term (current) use of antic oagulants Frederick Tristan, DO 10/25/2020 Z51.81 Encounter for therapeutic drug l evel monitoring Frederick Tristan, DO 09/11/2020 Z51.81 Encounter for therapeutic drug l evel monitoring Balbina Crespo, [facility] 09/11/2020 Z51.81 Encounter for therapeutic drug l evel monitoring Protime 09/11/2020 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 Balbina Crespo, [facility] 09/11/2020 Z79.01 long-term (current) use of antic oagulants Protime 09/11/2020 S75.891D Other specified inju ry of other blood vessels at hip and thigh level, right leg, subsequent encounter Balbina Crespo, [facility] 09/11/2020 S75.891D Other specified inju ry of other blood vessels at hip and thigh level, right leg, subsequent encounter Protime 09/05/2020 I10 Essential (primary) hypertension Balbina Crespo, [facility] 09/05/2020 Z51.81 Encounter for therapeutic drug l evel monitoring Balbina Crespo, [facility] 09/05/2020 E87.6 Hypokalemia Balbina Crespo, [facility] 09/05/2020 Z51.81 Encounter for therapeutic drug l evel monitoring Protime 09/05/2020 Z79.01 long-term (current) use of antic oagulants Balbina Crespo, [facility] 09/05/2020 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 Protime 09/05/2020 S75.891D Other specified inju ry of other blood vessels at hip and thigh level, right leg, subsequent encounter Balbina Crespo, [facility] 09/05/2020 S75.891D Other specified inju ry of other blood vessels at hip and thigh level, right leg, subsequent encounter Protime 08/28/2020 Z51.81 Encounter for therapeutic drug l evel monitoring Balbina Crespo, [facility] 08/28/2020 Z51.81 Encounter for therapeutic drug l evel monitoring Protime 08/28/2020 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 Balbina Crespo, [facility] 08/28/2020 Z79.01 long-term (current) use of antic oagulants Protime 08/28/2020 S75.891D Other specified inju ry of other blood vessels at hip and thigh level, right leg, subsequent encounter Balbina Crespo, [facility] 08/28/2020 S75.891D Other specified inju ry [...] therapeutic drug l evel monitoring Balbina Crespo, [facility] 08/14/2020 Z51.81 Encounter for therapeutic drug l evel monitoring Protime 08/14/2020 S75.891D Other specified inju ry of other blood vessels at hip and thigh level, right leg, subsequent encounter Balbina Crespo [facility] 08/14/2020 S75.891D Other specified inju ry of other blood vessels at hip and thigh level, right leg, subsequent encounter Protime 08/14/2020 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 Balbina Crespo [facility] 08/14/2020 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 Protime 08/07/2020 Z51.81 Encounter for therapeutic drug l evel monitoring Balbina Crespo [facility] [facility] I10 Essential (primary) hypertension NICKY Morris JR 08/07/2020 S75.891D Other specified inju ry of other blood vessels at hip and thigh level, right leg, subsequent encounter Balbina Crespo [facility] 08/07/2020 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 NICKY Morris JR 08/07/2020 E78.00 Pure hypercholesterolemia, unspe cified NICKY Morris JR 08/07/2020 Z51.81 Encounter for therapeutic drug l evel monitoring Protime 08/07/2020 Z79.01 long-term (current) use of antic oagulants Balbina Crespo [facility] 08/07/2020 R01.1 Cardiac murmur, unspecified Prospere NICKY Philippe JR 08/07/2020 S75.891D Other specified inju ry of other blood vessels at hip and thigh level, right leg, subsequent encounter [facility]time 08/07/2020 I73.9 Peripheral vascular disease, uns pecified NICYK Morris JR 08/07/2020 I25.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 with NICKY Morris JR 08/07/2020 E03.9 Hypothyroidism, unspecified Robe NICKY Philippe JR 08/07/2020 Z79.01 long-term (current) use of antic oagulants Protime 08/07/2020 [...] l evel monitoring ELENA Lucas 07/17/2020 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 * 01/19/2021 11:00 am - Jaen at [facility] * 02/07/2021 8:00 am - ELENA Lucas at [facility] 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
--- OUTSIDE RECORDS SUMMARY | 2021-01-09 15:42 | CCD | Continuity of Care Document ---
Author Author Nurse #2, Yovany Subramanian Organization Unknown Address [address] [place] [address] [address] [place] [address] Phone Unavailable Care Team Providers Care Sales Operations Specialist Name Role Phone Sameer Tristan JR, MD AUTM Unavailable Nicolas Albert MD AUTM [phone] Dick Medina MD AUTM [phone] Servando Collins MD AUTM [phone] Clara Lagunas OD AUTM Unavailable Renetta Swanson MD AUTM [phone] Brenda Mcgraw AUTM [phone] Problems Active Problems Provider Date Anticoagulants Dynamic Balancer Set Up Worker (Current) Use O nset: 01/25/1997 Injury Blood [...] every 12 hours 14caps N39.0 Balbina Crespo, [facility] 12/20 - 12/20/2020 Medications Administered in Office Medication SIG Qnty Indications Ordering Provider Date Administration Of Flu Vaccine Inj ection Balbina Crespo [facility] 12/20/2020 Immunization Adminstration,1 Vaccine/Tox oid Injection Balbina Crespo [facility] 12/20/2020 Covid-19 vaccine, Unspecified Inj [...] CPT Code Status Date Vaccine Lot # [id number] Given 12/20/2020 Adacel- Tetanus Diphtheria P ertussis [id number] 47636 Given 12/20/2020 Influenza Vaccin e Quadrivalent Preser/Antibiotic Free Im Use 85708 Given 12/20/2020 Influenza Vaccin e Quadrivalent Preser/Antibiotic Free Im Use [id number] 53327 Given 12/20/2020 Adacel- Tetanus Diphtheria P ertussis 23334 Given 12/29/2019 Influenza Vaccin e Quadrivalent Preser/Antibiotic Free Im Use 12054 Given 12/28/2018 Influenza Vaccin e Quadrivalent Preser/Antibiotic Free Im Use 412909 25850 Given 01/05/2018 Influenza Virus Vaccine, Quadrivalent ([id number]), Derived From 8 Given 12/02/2017 Shingrix U-Td Given 10/28/2017 Td(Adult)(Tetanus, Diphtheri a) unspecified 63152 Given 09/09/2017 Shingrix 47841 Given 01/01/2017 Influenza Vaccin e Quadrivalent Preser/Antibiotic Free Im Use [id number] Q2037 Given 01/16/2016 Fluvirin Virus Vaccine 02346 01 Q2037 Given 12/23/2014 Fluvirin Virus Vaccine 61845 01 17726 Given 04/29/2014 Prevnar 13 [id number] Q2037 Given 01/12/2014 Fluvirin Virus Vaccine 13236 01 86808 Given 01/23/2007 Pneumovax 23 20407 Given 08/20/2005 Tetanus/Diptheria(Td)Toxoids Preservative Free 08570 Given 07/26/1997 Pneumovax 23 [id number] Refused 12/20/2011 [...] H/L Range Note Laboratory test finding 01/05/2021 [facility] Banquet Bartender: Dr Sameer Tristan [place], [place] [id number] [phone] Magnesium 2.1 mg/dL 1.8 - 2.4 Comprehensive Chem Profile 01/05/2021 [facility] Banquet Bartender: [place] [address] [phone] Glucose 100 mg/dL High 74 - 99 [...] 60 mL/min >60 2 Lipid Profile 01/05/2021 [facility] , Banquet Bartender: Dr Sameer Tristan [place], [place] [id number] [phone] Cholesterol 133 mg/dL 131 - 200 Triglycerides 85 mg/dL 30 - 150 HDL Cholesterol 47 mg/dL 35 - 60 LDL (Calculated) 69 CALC 50 - 159 Laboratory test finding 01/05/2021 [facility] Banquet Bartender: [place] [address] [phone] Thyroid Stimulating Hormone 4.53 uIU/mL High 0.3 6 - 3.74 Complete Blood Count 01/05/2021 [facility] Banquet Bartender: [place] [address] [phone] WBC 9.1 x10*3/UL 4.1 - 10.9 RBC [...] Wi-Inr Inr 1.9 Basic Metabolic Panel 12/20/2020 [facility] Banquet Bartender: [place] [address] [phone] Glucose 108 mg/dL High 74 - 99 [...] Low >60 4 Ua Dipstick Only 12/20/2020 [facility] , Banquet Bartender: [place] [address] [phone] Urine Color YELLOW Yellow Urine Appearance CLOUDY Abnormal Clear Urine PH 6.0 units 5.0 - 9.0 Urine Specific [place] 1.010 1.005 - 1.030 Urine Leukocytes LARGE Abnormal Negative Urine Blood SMALL Abnormal Negative Urine Protein 1+ Abnormal Negative -Trace Urine Glucose NEGATIVE mg/dL Negative Urine Nitrite POSITIVE Abnormal Negative Urine Ketone NEGATIVE mg/dL Negative Urine Bilirubin NEGATIVE Negative Urine Urobilinogen 0.2 mg/dL 0.2 - 1.0 Laboratory test finding 12/20/2020 [facility] [address] [place] [address] [phone] Urine Culture FULL REPORT IN L <SEE NOTE> Normal 5 Complete Blood Count 12/20/2020 [facility] [employer] l[facility] quezada Banquet Bartender: [place] [address] [phone] WBC 11.6 x10*3/UL High 4.1 - 10.9 [...] Wi-Inr Inr 4.8 Complete Blood Count 12/13/2020 [facility] [employer] [facility] Banquet Bartender: [place] [address] [phone] WBC 14.4 x10*3/UL High 4.1 - 10.9 [...] 2.0 - 7.8 Basic Metabolic Panel 12/13/2020 [facility], Banquet Bartender: [place] [address] [phone] Glucose 120 mg/dL High 74 - 99 [...] mL/min >60 9 Laboratory test finding 12/13/2020 [facility], Banquet Bartender: Dr [place]er [place], [place] [address] [phone] Magnesium 1.5 mg/dL Low 1.8 - 2.4 Laboratory test finding [facility] [place] [address] [phone] Potassium 3.9 mEq/L 3.5 - 5.1 Basic Metabolic Panel 11/30/2020 [facility] Banquet Bartender: Dr [place]er [place], [place] [address]455 [phone] Glucose 94 mg/dL 74 - 99 10 [...] Wi-Inr Inr 3.1 Laboratory test finding 11/30/2020 [facility] [employer] [facility] [facility] lorri quintero Banquet Bartender: [place] [address] [phone] Magnesium 1.3 mg/dL Low 1.8 - 2.4 Complete Blood Count 10/25/2020 [facility] N[facility] Banquet Bartender: [place] [address] [phone] WBC 10.3 x10*3/UL 4.1 - 10.9 RBC [...] 2.0 - 7.8 Comprehensive Chem Profile 10/25/2020 [facility] Eche[facility] Banquet Bartender: [place] [address] [phone] Glucose 100 mg/dL High 74 - 99 [...] Wi-Inr Inr 3.4 Complete Blood Count 09/05/2020 [facility] [employer] [facility] Banquet Bartender: [place] [address] [phone] WBC 12.1 x10*3/UL High 4.1 - 10.9 [...] 2.0 - 7.8 Basic Metabolic Panel 09/05/2020 [facility] Banquet Bartender: [place] [address] [phone] Glucose 108 mg/dL High 74 - 99 [...] mL/min >60 17 Laboratory test finding 09/05/2020 [facility] Banquet Bartender: [place] [address] [phone] Magnesium 1.6 mg/dL Low 1.8 - 2.4 Laboratory test finding 08/28/2020 [facility] 3.7 Laboratory test finding 08/22/2020 [facility] 4.1 Laboratory test finding 08/14/2020 [facility] 3.9 Laboratory test finding 08/07/2020 Wi-In[facility] Inr 1.5 Complete Blood Count 08/07/2020 [facility] [employer] [facility] Banquet Bartender: [place] [address] [phone] WBC 10.6 x10*3/UL 4.1 - 10.9 RBC [...] 2.0 - 7.8 Basic Metabolic Panel 08/07/2020 [facility] Banquet Bartender: [place] [address] [phone] Glucose 103 mg/dL High 74 - 99 [...] >60 20 Coronavirus 2019 Nasopharygeal 07/28/[address] [address] [phone] Coronavirus 2019 Nasopharygeal ASSAY INFORMATIO <SEE N OTE> 21 Laboratory test finding 07/17/2020 Wi-Inr Inr 3.2 Coronavirus 2019 Nasopharygeal 07/15/[address] [address] [phone] Coronavirus 2019 Nasopharygeal ASSAY INFORMATIO <SEE N OTE> 22 1 100-125 mg/dL PRE-DIABET ES/FASTING >126 mg/dL DIABETES/FASTING 2 CHRONIC KIDNEY DISEASE STAGI NG PER NKF STAGE I & II GFR >= 60 NORMAL TO MILDLY DECREASED STAGE III GFR 30-59 MODERATELY DECREASED STAGE IV GFR 15-29 SEVERELY DECREASED STAGE V GFR <15 VERY LITTLE GFR LEFT ESRD GFR <15 ON MECHANICAL FITTER 3 100-125 mg/dL PRE-DIABET ES/FASTING >126 mg/dL DIABETES/FASTING 4 CHRONIC KIDNEY DISEASE STAGI NG PER NKF STAGE I & II GFR >= 60 NORMAL TO MILDLY DECREASED STAGE III GFR 30-59 MODERATELY DECREASED STAGE IV GFR 15-29 SEVERELY DECREASED STAGE V GFR <15 VERY LITTLE GFR LEFT ESRD GFR <15 ON MECHANICAL FITTER 5 FULL REPORT IN LAB NOTES (eC [...] LITTLE GFR LEFT ESRD GFR <15 ON MECHANICAL FITTER 10 100-125 mg/dL PRE-DIABET ES/FASTING >126 mg/dL DIABETES/FASTING 11 NOTE: RESULT VERIFIED. 12 CHRONIC KIDNEY DISEASE STAGI NG PER NKF STAGE I & II GFR >= 60 NORMAL TO MILDLY DECREASED STAGE III GFR 30-59 MODERATELY DECREASED STAGE IV GFR 15-29 SEVERELY DECREASED STAGE V GFR <15 VERY LITTLE GFR LEFT ESRD GFR <15 ON MECHANICAL FITTER 13 100-125 mg/dL PRE-DIABET ES/FASTING >126 mg/dL DIABETES/FASTING 14 CHRONIC KIDNEY DISEASE STAGI NG PER NKF STAGE I & II GFR >= 60 NORMAL TO MILDLY DECREASED STAGE III GFR 30-59 MODERATELY DECREASED STAGE IV GFR 15-29 SEVERELY DECREASED STAGE V GFR <15 VERY LITTLE GFR LEFT ESRD GFR <15 ON MECHANICAL FITTER 15 NOTE: RESULT VERIFIED. 16 100-125 mg/dL PRE-DIABET ES/FASTING >126 mg/dL DIABETES/FASTING 17 CHRONIC KIDNEY DISEASE STAGI NG PER NKF STAGE I & II GFR >= 60 NORMAL TO MILDLY DECREASED STAGE III GFR 30-59 MODERATELY DECREASED STAGE IV GFR 15-29 SEVERELY DECREASED STAGE V GFR <15 VERY LITTLE GFR LEFT ESRD GFR <15 ON MECHANICAL FITTER 18 100-125 mg/dL PRE-DIABET ES/FASTING >126 mg/dL DIABETES/FASTING 19 NOTE: RESULT VERIFIED. 20 CHRONIC KIDNEY DISEASE STAGI NG PER NKF STAGE I & II GFR >= 60 NORMAL TO MILDLY DECREASED STAGE III GFR 30-59 MODERATELY DECREASED STAGE IV GFR 15-29 SEVERELY DECREASED STAGE V GFR <15 VERY LITTLE GFR LEFT ESRD GFR <15 ON MECHANICAL FITTER 21 ASSAY INFORMATION: Real Time RT-PCR NOTE: The COVID-19 assay has been cleared by the U.S. Food and Drug Administration under the Emergency Use Authorization (EUA). [facility] and [facility] are designated as high complexity laboratories by the Clinical Laboratory Improvement Amendments of 1988(CLIA) and are qualified to perform this test. Not Detected 22 ASSAY INFORMATION: Real Time RT-PCR NOTE: The COVID-19 assay has been cleared by the U.S. Food and Drug Administration under the Emergency Use Authorization (EUA). [facility] and [facility] [employer] are designated as high complexity laboratories by the Clinical Laboratory Improvement Amendments of 1988(CLIA) and are qualified to perform this test. Not Detected Procedures Date Code Description Status 01/03/2021 47804 Office/Outpatient Established Lo w MDM 20-29 Min Completed 12/20/2020 19150 Office/Outpatient Established Lo w MDM 20-29 Min Completed 12/13/2020 28246 Office/Outpatient Established Mo d MDM 30-39 Min Completed 12/13/2020 89336 Office/Outpatient Established Mo d MDM 30-39 Min Completed 12/13/2020 75305 EKG/Interpretation & Report Comp leted 12/13/2020 22854 EKG/Interpretation & Report Comp leted 10/25/2020 86875 Office/Outpatient Established Mo d MDM 30-39 Min Completed 08/07/2020 12367 Office/Outpatient Established Mo d MDM 30-39 Min Completed 10/06/2013 [id number] Colonoscopy Completed 06/16/2006 [id number] Colonoscopy Completed 12/12/2005 [id number] Mammogram Completed Medical Devices Description No Information Available Encounters Type Date Location Provider Dx Diagnosis Office Visit 01/03/2021 11:40a [facility] 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 Balbina Vincent ne, ACADEMIC DIRECTOR N39.0 Urinary tract infection, site not specif ied R06.02 Shortness of breath E87.6 Hypokalemia Z79.01 alf (current) use of a nticoagulants S41.111A Laceration w/o foreign body of right upper arm, init encntr W10.8xxA Fall (on) (from) other stair s and steps, initial encounter Z23 Encounter for immunization Office Visit 12/13/2020 3:20p [facility] 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 Sameer Tristan MD 01/05/2021 Z95.5 Presence of coronary angioplasty implant and graft Sameer Tristan MD 01/05/2021 E87.6 Hypokalemia Sameer chapman MD 01/05/2021 F41.9 Anxiety disorder, unspecified Co tamia Tristan MD 01/05/2021 I35.0 Nonrheumatic aortic (valve) sten osis Sameer Tristan MD 01/05/2021 Z95.0 Presence of cardiac pacemaker Bennett Tristan MD 01/03/2021 J43.2 Centrilobular emphysema Balbina Caballero [facility] 01/03/2021 F41.9 Anxiety disorder, unspecified An n Pearl Frank [facility] 01/03/2021 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 Balbina Crespo [facility] 01/03/2021 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 Balbina Crespo [facility] 01/03/2021 Z51.81 Encounter for therapeutic drug l evel monitoring Protime 01/03/2021 Z79.01 senior living (current) drug use for prophylactic purposes Balbina Crespo [facility] 01/03/2021 S75.891D Other specified inju ry of other blood vessels at hip and thigh level, right leg, subsequent encounter Protime 12/27/2020 S75.891D Other specified inju ry of other blood vessels at hip and thigh level, right leg, subsequent encounter Balbina Crespo [facility] 12/27/2020 S75.891D Other specified inju ry of other blood vessels at hip and thigh level, right leg, subsequent encounter Protime 12/27/2020 Z79.01 alf (current) use of antic oagulants Balbina Crespo [facility] 12/27/2020 Z79.01 alf (current) use of antic oagulants Protime 12/27/2020 Z51.81 Encounter for therapeutic drug l evel monitoring Balbina Crespo [facility] 12/27/2020 Z51.81 Encounter for therapeutic drug l evel monitoring Protime 12/20/2020 Z51.81 Encounter for therapeutic drug l evel monitoring Balbina Crespo [facility] 12/20/2020 Z51.81 Encounter for therapeutic drug l evel monitoring Protime 12/20/2020 Z79.01 rat exterminator (current) use of antic oagulants Balbina Crespo [facility] 12/20/2020 Z79.01 rat exterminator (current) use of antic oagulants [facility] 12/20/2020 S75.891D Other specified inju ry of other blood vessels at hip and thigh level, right leg, subsequent encounter Balbina Crespo, [facility] 12/20/2020 N39.0 Urinary tract infection, site no t specified Balbina Crespo, [facility] 12/20/2020 S75.891D Other specified inju ry of other blood vessels at hip and thigh level, right leg, subsequent encounter [facility] 12/20/2020 R06.02 Shortness of breath aBlbina Crespo, [facility] 12/20/2020 E87.6 Hypokalemia Balbina Pearl Frank, [facility] 12/20/2020 Z79.01 alf (current) use of antic oagulants Balbina Crespo, [facility] 12/20/2020 S41.111A Laceration without f oreign body of right upper arm, initial encounter Balbina Pearl Frank [facility] 12/20/2020 W10.8xxA Fall (on) (from) other stairs an d steps, initial encounter Balbina Pearl Frank, [facility] 12/20/2020 Z23 Encounter for immunization Balbina Frank, [facility] 12/13/2020 Z51.81 Encounter for therapeutic drug l evel monitoring Balbina Crespo, [facility] 12/13/2020 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 Balbina Crespo, [facility] 12/13/2020 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 Balbina Pearl Frank [facility] 12/13/2020 Z79.01 alf (current) use of antic oagulants Balbina Pearl Frank [facility] 12/13/2020 E83.42 Hypomagnesemia Balbina Pearl Frank, [facility] 12/13/2020 J44.1 Chronic obstructive pulmonary disease with (acute) exacerbation Balbina Pearl Zac [facility] 12/13/2020 Z87.891 Personal history of nicotine dep endence Balbina Pearl Frank [facility] 12/13/2020 Z51.81 Encounter for therapeutic drug l evel monitoring [facility] 12/13/2020 S75.891D Other specified inju ry of other blood vessels at hip and thigh level, right leg, subsequent encounter Balbina Crespo, [facility] 12/13/2020 Z79.01 rat exterminator (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) use of antic oagulants Balbina Crespo, [facility] 12/13/2020 R79.1 Abnormal coagulation profile Balbina Crespo, [facility] 12/13/2020 D72.829 Elevated white blood cell count, unspecified Balbina Crespo, [facility] 12/13/2020 Z79.01 alf (current) use of antic oagulants Protime 12/13/2020 S75.891D Other specified inju ry of other blood vessels at hip and thigh level, right leg, subsequent encounter Protime 12/13/2020 Z98.61 Coronary angioplasty status Balbina Crespo, [facility] 12/13/2020 Z95.810 Presence of automatic (implantab le) cardiac defibrillator Balbina Crespo [facility] 12/11/2020 R06.02 Shortness of breath Grady le JR, NICKY 12/04/2020 E87.6 Hypokalemia Balbina Crespo, [facility] 12/04/2020 E87.6 Hypokalemia Lab Schedule 11/30/2020 Z51.81 Encounter for therapeutic drug l evel monitoring Balbina Crespo, [facility] 11/30/2020 I10 Essential (primary) hypertension Balbina Crespo, [facility] 11/30/2020 Z79.01 alf (current) use of antic oagulants Balbina Crespo, [facility] 11/30/2020 Z51.81 Encounter for therapeutic drug l evel monitoring Protime 11/30/2020 S75.891D Other specified inju ry of other blood vessels at hip and thigh level, right leg, subsequent encounter Balbina Crespo [facility] 11/30/2020 Z79.01 alf (current) use of antic oagulants Protime 11/30/2020 I10 Essential (primary) hypertension Lab Schedule 11/30/2020 S75.891D Other specified inju ry of other blood vessels at hip and thigh level, right leg, subsequent encounter Protime 11/30/2020 E87.6 Hypokalemia Balbina Crespo, [facility] 11/30/2020 E87.6 Hypokalemia Lab Schedule 10/25/2020 Z51.81 Encounter for therapeutic drug l evel monitoring Balbina Crespo, [facility] 10/25/2020 Z51.81 Encounter for therapeutic drug l evel monitoring Protime 10/25/2020 Z79.01 rat exterminator (current) use of antic oagulants Balbina Crespo, [facility] 10/25/2020 Z79.01 rat exterminator (current) use of antic oagulants Protime 10/25/2020 S75.891D Other specified inju ry of other blood vessels at hip and thigh level, right leg, subsequent encounter Balbina Crespo, [facility] 10/25/2020 I35.0 Nonrheumatic aortic (valve) sten osis Frederick Tristan, DO 10/25/2020 S75.891D Other specified inju ry of other blood vessels at hip and thigh level, right leg, subsequent encounter Protime 10/25/2020 I25.10 Atherosclerotic heart disease of [place] coronary artery with Frederick Tristan, DO 10/25/2020 I50.22 Chronic systolic (congestive) he art failure Frederick Tristan, DO 10/25/2020 I44.2 Atrioventricular block, complete Frederick Tristan, DO 10/25/2020 I10 Essential (primary) hypertension Frederick Tristan, DO 10/25/2020 Z79.01 alf (current) use of antic oagulants Frederick Tristan, DO 10/25/2020 Z51.81 Encounter for therapeutic drug l evel monitoring Frederick Tristan, DO 09/11/2020 Z51.81 Encounter for therapeutic drug l evel monitoring Balbina Crespo, [facility] 09/11/2020 Z51.81 Encounter for therapeutic drug l evel monitoring Protime 09/11/2020 Z79.01 rat exterminator (current) use of antic oagulants Balbina Crespo, [facility] 09/11/2020 Z79.01 alf (current) use of antic oagulants Protime 09/11/2020 S75.891D Other specified inju ry of other blood vessels at hip and thigh level, right leg, subsequent encounter Balbina Crespo, [facility] 09/11/2020 S75.891D Other specified inju ry of other blood vessels at hip and thigh level, right leg, subsequent encounter Protime 09/05/2020 I10 Essential (primary) hypertension Balbina Crespo, [facility] 09/05/2020 Z51.81 Encounter for therapeutic drug l evel monitoring Balbina Crespo, [facility] 09/05/2020 E87.6 Hypokalemia Balbina Crespo, [facility] 09/05/2020 Z51.81 Encounter for therapeutic drug l evel monitoring Protime 09/05/2020 Z79.01 alf (current) use of antic oagulants Balbina Crespo, [facility] 09/05/2020 Z79.01 rat exterminator (current) use of antic oagulants Protime 09/05/2020 S75.891D Other specified inju ry of other blood vessels at hip and thigh level, right leg, subsequent encounter Balbina Crespo, [facility] 09/05/2020 S75.891D Other specified inju ry of other blood vessels at hip and thigh level, right leg, subsequent encounter Protime 08/28/2020 Z51.81 Encounter for therapeutic drug l evel monitoring Balbina Crespo, [facility] 08/28/2020 Z51.81 Encounter for therapeutic drug l evel monitoring Protime 08/28/2020 Z79.01 rat exterminator (current) use of antic oagulants Balbina Crespo, [facility] 08/28/2020 Z79.01 alf (current) use of antic oagulants Protime 08/28/2020 S75.891D Other specified inju ry of other blood vessels at hip and thigh level, right leg, subsequent encounter Balbina Crespo, [facility] 08/28/2020 S75.891D Other specified inju ry of other blood vessels at hip and thigh level, right leg, subsequent encounter Protime 08/22/2020 Z51.81 Encounter for therapeutic drug l evel monitoring Protime 08/22/2020 Z79.01 rat exterminator (current) use of antic oagulants Protime 08/22/2020 S75.891D Other specified inju ry of other blood vessels at hip and thigh level, right leg, subsequent encounter Protime 08/14/2020 Z51.81 Encounter for therapeutic drug l evel monitoring Balbina Crespo, [facility] 08/14/2020 Z51.81 Encounter for therapeutic drug l evel monitoring Protime 08/14/2020 S75.891D Other specified inju ry of other blood vessels at hip and thigh level, right leg, subsequent encounter Balbina Crespo [facility] 08/14/2020 S75.891D Other specified inju ry of other blood vessels at hip and thigh level, right leg, subsequent encounter Protime 08/14/2020 Z79.01 rat exterminator (current) use of antic oagulants Balbina Crespo [facility] 08/14/2020 Z79.01 rat exterminator (current) use of antic oagulants Protime 08/07/2020 Z51.81 Encounter for therapeutic drug l evel monitoring Balbina Crespo [facility] 08/07/2020 I10 Essential (primary) hypertension NICKY Morris JR 08/07/2020 S75.891D Other specified inju ry of other blood vessels at hip and thigh level, right leg, subsequent encounter Balbina Crespo [facility] 08/07/2020 Z79.01 rat exterminator (current) use of antic oagulants NICKY Morris JR 08/07/2020 E78.00 Pure hypercholesterolemia, unspe cified NICKY Morris JR 08/07/2020 Z51.81 Encounter for therapeutic drug l evel monitoring Protime 08/07/2020 Z79.01 alf (current) use of antic oagulants Balbina Crespo [facility] 08/07/2020 R01.1 Cardiac murmur, unspecified Prospere NICKY Philippe JR 08/07/2020 S75.891D Other specified inju ry of other blood vessels at hip and thigh level, right leg, subsequent encounter Protime 08/07/2020 I73.9 Peripheral vascular disease, uns pecified NICKY Morris JR 08/07/2020 I25.10 Atherosclerotic heart disease of [place] coronary artery with NICKY Morris JR 08/07/2020 E03.9 Hypothyroidism, unspecified Robe NICKY Philpipe JR 08/07/2020 Z79.01 alf (current) use of antic oagulants Protime 08/07/2020 [...] l evel monitoring ELENA Lucas 07/17/2020 Z79.01 rat exterminator (current) use of antic oagulants Protime 07/17/2020 Z79.01 rat exterminator (current) use of antic oagulants ELENA Lucas 07/17/2020 S75.891D Other specified inju ry of other blood vessels at hip and thigh level, right leg, subsequent encounter Protime 07/17/2020 S75.891D Other specified inju ry of other blood vessels at hip and thigh level, right leg, subsequent encounter ELENA Lucas Plan of Treatment Future Appointment(s):* 04/09/2021 9:40 am - Sameer Tristan MD at [facility] * 01/19/2021 11:00 am - Jean at [facility] * 02/07/2021 8:00 am - ELENA Lucas at [facility] 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
--- OUTSIDE RECORDS SUMMARY | 2021-01-09 15:43 | CCD | Continuity of Care Document ---
Author Author Yovany Lucas Organization Unknown Address [address] [place] [address] [address] [place] [address] Phone [phone] Care Team Providers Care Uptwister Tender Name Role Phone Sameer Tristan JR, MD AUTM Unavailable Nicolas Albert MD AUTM [phone] Dick Medina MD AUTM [phone] Servando Clolins MD AUTM [phone] Clara Lagunas OD AUTM Unavailable Renetta Swanson MD AUTM [phone] Brenda Mcgraw AUTM [phone] Problems Active Problems Provider Date Anticoagulants Custodial (Current) Use O nset: 01/25/1997 Injury Blood [...] mouth every day Unknown Furosemide 40mg Tablets take two tablets by mouth every morning and take two tablets at 1:00pm R60.0 Unknown Atenolol 25mg Tablets one tablet by mouth daily Unknown Ventolin HFA 108(90Base) mcg/Act A erosol 2 puffs four times a day as needed Unknown History Medications Nitrofurantoin Monohyd Macro 100mg Capsules one every 12 hours 14caps N39.0 Balbina Crespo [facility] 12/20 - 12/20/2020 Medications Administered in Office Medication SIG Qnty Indications Ordering Provider Date Administration Of Flu Vaccine Inj ection Balbina Crespo [facility] 12/20/2020 Immunization Adminstration,1 Vaccine/Tox oid Injection Balbina Crespo [facility] 12/20/2020 Covid-19 vaccine, Unspecified Inj ection [...] CPT Code Status Date Vaccine Lot # [id number] Given 12/20/2020 Adacel- Tetanus Diphtheria P ertussis [id number] 90204 Given 12/20/2020 Influenza Vaccin e Quadrivalent Preser/Antibiotic Free Im Use 25706 Given 12/20/2020 Influenza Vaccin e Quadrivalent Preser/Antibiotic Free Im Use 395278 76532 Given 12/20/2020 Adacel- Tetanus Diphtheria P ertussis 33949 Given 12/29/2019 Influenza Vaccin e Quadrivalent Preser/Antibiotic Free Im Use 10390 Given 12/28/2018 Influenza Vaccin e Quadrivalent Preser/Antibiotic Free Im Use [id number] 13006 Given 01/05/2018 Influenza Virus Vaccine, Quadrivalent ([id number]), Derived From 1 Given 12/02/2017 Shingrix U-Td Given 10/28/2017 Td(Adult)(Tetanus, Diphtheri a) unspecified 34475 Given 09/09/2017 Shingrix 75779 Given 01/01/2017 Influenza Vaccin e Quadrivalent Preser/Antibiotic Free Im Use 294901 Q2037 Given 01/16/2016 Fluvirin Virus Vaccine 08503 01 Q2037 Given 12/23/2014 Fluvirin Virus Vaccine 88572 01 70220 Given 04/29/2014 Prevnar 13 [id number] Q2037 Given 01/12/2014 Fluvirin Virus Vaccine 45002 01 45443 Given 01/23/2007 Pneumovax 23 79300 Given 08/20/2005 Tetanus/Diptheria(Td)Toxoids Preservative Free 84678 Given 07/26/1997 Pneumovax 23 [id number] Refused 12/20/2011 Fluvirin Virus Vaccine Q2037 Refused 12/19/2010 Fluvirin Virus Vaccine Vital Signs Date Vital Result Comment 01/03/2021 11:28am BP Systolic 122 mmHg BP Diastolic 84 mmHg Heart Rate 98 /min Height 63 inches 5'3" Weight 151.00 lb O2 % BldC Oximetry 96 % BMI (Body Mass Index) 26.7 kg/m2 12/27/2020 8:19am Weight 156.00 lb Results Test Acquired Date Facility Test Result H/L Range Note Laboratory test finding 01/03/2021 [facility] 1.9 Laboratory test finding 12/27/2020 [facility] 1.9 Laboratory test finding 12/20/2020 [facility] 1.9 Complete Blood Count 12/20/2020 [facility] Plant Protection Superintendent: [place] [address] [phone] WBC 11.6 x10*3/UL High 4.1 - 10.9 1 RBC 4.90 x10*6/UL 4.20 - 6.30 Hemoglobin [...] # 10.1 x10*3/UL High 2.0 - 7.8 Basic Metabolic Panel 12/20/2020 [facility] Plant Protection Superintendent: [place] [address] [phone] Glucose 108 mg/dL High 74 - 99 2 BUN 28 mg/dL High 7 - 18 Creatinine 1.5 mg/dL High 0.6 - 1.3 Sodium 143 mEq/L 136 - 145 Potassium 4.3 mEq/L 3.5 - 5.1 Chloride 105 mEq/L 98 - 107 Carbon Dioxide 28 mEq/L 21 - 32 Calcium 10.0 mg/dL 8.5 - 10.1 GFR 45 mL/min Low >60 GFR 54 mL/min Low >60 3 Laboratory test finding 12/20/2020 [facility] [address] [place] [address] [phone] Urine Culture FULL REPORT IN L <SEE NOTE> Normal 4 Ua Dipstick Only 12/20/2020 [facility] , Plant Protection Superintendent: [place] [address] [phone] Urine Color YELLOW Yellow Urine Appearance CLOUDY Abnormal Clear Urine PH 6.0 units 5.0 - 9.0 Urine Specific [place] 1.010 1.005 - 1.030 Urine Leukocytes LARGE Abnormal Negative Urine Blood SMALL Abnormal Negative Urine Protein 1+ Abnormal Negative -Trace Urine Glucose NEGATIVE mg/dL Negative Urine Nitrite POSITIVE Abnormal Negative Urine Ketone NEGATIVE mg/dL Negative Urine Bilirubin NEGATIVE Negative Urine Urobilinogen 0.2 mg/dL 0.2 - 1.0 Laboratory test finding 12/13/2020 [facility] 4.8 Complete Blood Count 12/13/2020 [facility], Plant Protection Superintendent: [place] [address] [phone] WBC 14.4 x10*3/UL High 4.1 - 10.9 5 RBC 4.67 x10*6/UL 4.20 - 6.30 Hemoglobin [...] 2.0 - 7.8 Basic Metabolic Panel 12/13/2020 [facility] Plant Protection Superintendent: [place] [address] [phone] Glucose 120 mg/dL High 74 - 99 6 BUN 18 mg/dL 7 - 18 Creatinine 1.2 mg/dL 0.6 - 1.3 Sodium 142 mEq/L 136 - 145 Potassium 3.5 mEq/L 3.5 - 5.1 Chloride 106 mEq/L 98 - 107 Carbon Dioxide 28 mEq/L 21 - 32 Calcium 9.3 mg/dL 8.5 - 10.1 GFR 58 mL/min Low >60 GFR >= 60 mL/min >60 7 Laboratory test finding 12/13/2020 [facility], Plant Protection Superintendent: Dr Sameer Coppola [facility] [phone] Magnesium 1.5 mg/dL Low 1.8 - 2.4 Laboratory test finding 12/04/2020 [facility] Plant Protection Superintendent: [place] [address] [phone] Potassium 3.9 mEq/L 3.5 - 5.1 Basic Metabolic Panel 11/30/2020 [facility] Plant Protection Superintendent: [place] [address] [phone] Glucose 94 mg/dL 74 - 99 8 BUN 17 mg/dL 7 - 18 Creatinine 1.1 mg/dL 0.6 - 1.3 Sodium 145 mEq/L 136 - 145 Potassium 2.9 mEq/L Low 3.5 - 5.1 9 Chloride 104 mEq/L 98 - 107 Carbon Dioxide 30 mEq/L 21 - 32 Calcium 9.3 mg/dL 8.5 - 10.1 GFR >= 60 mL/min >60 GFR >= 60 mL/min >60 10 Laboratory test finding 11/30/2020 [facility] Plant Protection Superintendent: Dr Sameer Coppola [place] [id number] [phone] Magnesium 1.3 mg/dL Low 1.8 - 2.4 Laboratory test finding 11/30/2020 [facility] 3.1 Complete Blood Count 10/25/2020 [facility], Plant Protection Superintendent: [place] [address] [phone] WBC 10.3 x10*3/UL 4.1 - 10.9 RBC [...] 2.0 - 7.8 Comprehensive Chem Profile 10/25/2020 [facility] Plant Protection Superintendent: [place] [address] [phone] Glucose 100 mg/dL High 74 - 99 11 BUN 17 mg/dL 7 - 18 Creatinine [...] Low >60 GFR >= 60 mL/min >60 12 Laboratory test finding 09/05/2020 [facility] 3.4 Complete Blood Count 09/05/2020 [facility] Plant Protection Superintendent: [place] [address] [phone] WBC 12.1 x10*3/UL High 4.1 - 10.9 13 RBC 4.48 x10*6/UL 4.20 - 6.30 Hemoglobin [...] 2.0 - 7.8 Basic Metabolic Panel 09/05/2020 [facility] Plant Protection Superintendent: Dr Sameer Tristan [place], [place] [id number] [phone] Glucose 108 mg/dL High 74 - 99 14 BUN 26 mg/dL High 7 - 18 Creatinine 1.3 mg/dL 0.6 - 1.3 Sodium 144 mEq/L 136 - 145 Potassium 3.4 mEq/L Low 3.5 - 5.1 Chloride 105 mEq/L 98 - 107 Carbon Dioxide 26 mEq/L 21 - 32 Calcium 9.5 mg/dL 8.5 - 10.1 GFR 53 mL/min Low >60 GFR >= 60 mL/min >60 15 Laboratory test finding 09/05/2020 [facility] Plant Protection Superintendent: Dr Sameer Tristan [place], [place] [id number] [phone] Magnesium 1.6 mg/dL Low 1.8 - 2.4 Laboratory test finding 08/28/2020 [facility] 3.7 Laboratory test finding 08/22/2020 [facility] 4.1 Laboratory test finding 08/14/2020 [facility] 3.9 Laboratory test finding 08/07/2020 [facility] 1.5 Complete Blood Count 08/07/2020 [facility] Plant Protection Superintendent: [place] [address] [phone] WBC 10.6 x10*3/UL 4.1 - 10.9 RBC [...] 2.0 - 7.8 Basic Metabolic Panel 08/07/2020 [facility] Plant Protection Superintendent: Dr Sameer Tristan [place], [place] [id number] [phone] Glucose 103 mg/dL High 74 - 99 16 BUN 19 mg/dL High 7 - 18 Creatinine 1.2 mg/dL 0.6 - 1.3 Sodium 142 mEq/L 136 - 145 Potassium 3.3 mEq/L Low 3.5 - 5.1 17 Chloride 102 mEq/L 98 - 107 Carbon Dioxide 31 mEq/L 21 - 32 Calcium 9.1 mg/dL 8.5 - 10.1 GFR 58 mL/min Low >60 GFR >= 60 mL/min >60 18 Coronavirus 2019 Nasopharygeal 07/28/2020 [facility] [address] [place] [address] [phone] Coronavirus 2019 Nasopharygeal ASSAY INFORMATIO <SEE N OTE> 19 Laboratory test finding 07/17/2020 [facility] 3.2 Coronavirus 2019 Nasopharygeal 07/15/2020 [place] [address] [place] [address] [phone] Coronavirus 2019 Nasopharygeal ASSAY INFORMATIO <SEE N OTE> 20 1 NOTE: RESULT VERIFIED. 2 100-125 mg/dL PRE-DIABET ES/FASTING >126 mg/dL DIABETES/FASTING 3 CHRONIC KIDNEY DISEASE STAGI NG PER NKF STAGE I & II GFR >= 60 NORMAL TO MILDLY DECREASED STAGE III GFR 30-59 MODERATELY DECREASED STAGE IV GFR 15-29 SEVERELY DECREASED STAGE V GFR <15 VERY LITTLE GFR LEFT ESRD GFR <15 ON WRITER 4 FULL REPORT IN LAB NOTES (eC W [...] SPCTRM BETA LACTAMASE IV NEGATIVE FOR ESBL 5 NOTE: RESULT VERIFIED. 6 100-125 mg/dL PRE-DIABET ES/FASTING >126 mg/dL DIABETES/FASTING 7 CHRONIC KIDNEY DISEASE STAGI NG PER NKF STAGE I & II GFR >= 60 NORMAL TO MILDLY DECREASED STAGE III GFR 30-59 MODERATELY DECREASED STAGE IV GFR 15-29 SEVERELY DECREASED STAGE V GFR <15 VERY LITTLE GFR LEFT ESRD GFR <15 ON WRITER 8 100-125 mg/dL PRE-DIABET ES/FASTING >126 mg/dL DIABETES/FASTING 9 NOTE: RESULT VERIFIED. 10 CHRONIC KIDNEY DISEASE STAGI NG PER NKF STAGE I & II GFR >= 60 NORMAL TO MILDLY DECREASED STAGE III GFR 30-59 MODERATELY DECREASED STAGE IV GFR 15-29 SEVERELY DECREASED STAGE V GFR <15 VERY LITTLE GFR LEFT ESRD GFR <15 ON WRITER 11 100-125 mg/dL PRE-DIABET ES/FASTING >126 mg/dL DIABETES/FASTING 12 CHRONIC KIDNEY DISEASE STAGI NG PER NKF STAGE I & II GFR >= 60 NORMAL TO MILDLY DECREASED STAGE III GFR 30-59 MODERATELY DECREASED STAGE IV GFR 15-29 SEVERELY DECREASED STAGE V GFR <15 VERY LITTLE GFR LEFT ESRD GFR <15 ON WRITER 13 NOTE: RESULT VERIFIED. 14 100-125 mg/dL PRE-DIABET ES/FASTING >126 mg/dL DIABETES/FASTING 15 CHRONIC KIDNEY DISEASE STAGI NG PER NKF STAGE I & II GFR >= 60 NORMAL TO MILDLY DECREASED STAGE III GFR 30-59 MODERATELY DECREASED STAGE IV GFR 15-29 SEVERELY DECREASED STAGE V GFR <15 VERY LITTLE GFR LEFT ESRD GFR <15 ON WRITER 16 100-125 mg/dL PRE-DIABET ES/FASTING >126 mg/dL DIABETES/FASTING 17 NOTE: RESULT VERIFIED. 18 CHRONIC KIDNEY DISEASE STAGI NG PER NKF STAGE I & II GFR >= 60 NORMAL TO MILDLY DECREASED STAGE III GFR 30-59 MODERATELY DECREASED STAGE IV GFR 15-29 SEVERELY DECREASED STAGE V GFR <15 VERY LITTLE GFR LEFT ESRD GFR <15 ON WRITER 19 ASSAY INFORMATION: Real Time RT-PCR NOTE: The COVID-19 assay has been cleared by the U.S. Food and Drug Administration under the Emergency Use Authorization (EUA). [employer] and [facility] are designated as high complexity laboratories by the Clinical Laboratory Improvement Amendments of 1988(CLIA) and are qualified to perform this test. Not Detected 20 ASSAY INFORMATION: Real Time RT-PCR NOTE: The COVID-19 assay has been cleared by the U.S. Food and Drug Administration under the Emergency Use Authorization (EUA). [employer] and [facility] are designated as high complexity laboratories by the Clinical Laboratory Improvement Amendments of 1988(CLIA) and are qualified to perform this test. Not Detected Procedures Date Code Description Status 12/20/2020 41906 Office/Outpatient Established Lo w MDM 20-29 Min Completed 12/13/2020 68598 Office/Outpatient Established Mo d MDM 30-39 Min Completed 12/13/2020 62658 Office/Outpatient Established Mo d MDM 30-39 Min Completed 12/13/2020 46457 EKG/Interpretation & Report Comp leted 12/13/2020 19975 EKG/Interpretation & Report Comp leted 10/25/2020 10540 Office/Outpatient Established Mo d MDM 30-39 Min Completed 08/07/2020 02593 Office/Outpatient Established Mo d MDM 30-39 Min Completed 10/06/2013 [id number] Colonoscopy Completed 06/16/2006 [id number] Colonoscopy Completed 12/12/2005 [id number] Mammogram Completed Medical Devices Description No Information Available Encounters Type Date Location Provider Dx Diagnosis Office Visit 12/20/2020 7:40a [facility] 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 Balbina Crespo [facility] 01/03/2021 Z51.81 Encounter for therapeutic drug l evel monitoring Protime 01/03/2021 Z79.01 exterminator termite (current) drug use for prophylactic purposes Balbina Crespo [facility] 01/03/2021 S75.891D Other specified inju ry of other blood vessels at hip and thigh level, right leg, subsequent encounter Protime 12/27/2020 S75.891D Other specified inju ry of other blood vessels at hip and thigh level, right leg, subsequent encounter Balbina Crespo, [facility] 12/27/2020 S75.891D Other specified inju ry of other blood vessels at hip and thigh level, right leg, subsequent encounter Protime 12/27/2020 Z79.01 exterminator termite (current) use of antic oagulants Balbina Crespo, [facility] 12/27/2020 Z79.01 exterminator termite (current) use of antic oagulants Protime 12/27/2020 Z51.81 Encounter for therapeutic drug l evel monitoring Balbina Crespo, [facility] 12/27/2020 Z51.81 Encounter for therapeutic drug l evel monitoring Protime 12/20/2020 Z51.81 Encounter for therapeutic drug l evel monitoring Balbina Crespo, [facility] 12/20/2020 Z51.81 Encounter for therapeutic drug l evel monitoring Protime 12/20/2020 Z79.01 exterminator termite (current) use of antic oagulants Balbina Crespo, [facility] 12/20/2020 Z79.01 exterminator termite (current) use of antic oagulants Protime 12/20/2020 S75.891D Other specified inju ry of other blood vessels at hip and thigh level, right leg, subsequent encounter Balbina Crespo, [facility] 12/20/2020 N39.0 Urinary tract infection, site no t specified Balbina Crespo, [facility] 12/20/2020 S75.891D Other specified inju ry of other blood vessels at hip and thigh level, right leg, subsequent encounter Protime 12/20/2020 R06.02 Shortness of breath Balbina Pearl Frank [facility] 12/20/2020 E87.6 Hypokalemia Balbina Crespo, [facility] 12/20/2020 Z79.01 alf (current) use of antic oagulants Balbina Pearl Frank, [facility] 12/20/2020 S41.111A Laceration without f oreign body of right upper arm, initial encounter Balbina Pearl Frank [facility] 12/20/2020 W10.8xxA Fall (on) (from) other stairs an d steps, initial encounter Balbina Crespo [facility] 12/20/2020 Z23 Encounter for immunization Balbina Frank, [facility] 12/13/2020 Z51.81 Encounter for therapeutic drug l evel monitoring Balbina Crespo, [facility] 12/13/2020 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 Balbina Crespo, [facility] 12/13/2020 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 Balbina Crespo, [facility] 12/13/2020 Z79.01 alf (current) use of antic oagulants Balbina Crespo, [facility] 12/13/2020 E83.42 Hypomagnesemia Balbina Crespo, [facility] 12/13/2020 J44.1 Chronic obstructive pulmonary disease with (acute) exacerbation Balbina Crespo [facility] 12/13/2020 Z87.891 Personal history of nicotine dep endence Balbina Crespo, [facility] 12/13/2020 Z51.81 Encounter for therapeutic drug l evel monitoring Protime 12/13/2020 S75.891D Other specified inju ry of other blood vessels at hip and thigh level, right leg, subsequent encounter Balbina Crespo [facility] 12/13/2020 Z79.01 alf (current) use of antic oagulants Balbina Crespo [facility] 12/13/2020 R79.1 Abnormal coagulation profile Balbina Crespo [facility] 12/13/2020 D72.829 Elevated white blood cell count, unspecified Balbina Crespo [facility] 12/13/2020 Z79.01 exterminator termite (current) use of antic oagulants Protime 12/13/2020 S75.891D Other specified inju ry of other blood vessels at hip and thigh level, right leg, subsequent encounter Protime 12/13/2020 Z98.61 Coronary angioplasty status Balbina Crespo [facility] 12/13/2020 Z95.810 Presence of automatic (implantab le) cardiac defibrillator Balbina Pearl Zac [facility] 12/11/2020 R06.02 Shortness of breath Grady le JR, PA 12/04/2020 E87.6 Hypokalemia Balbina Pearl Frank [facility] 12/04/2020 E87.6 Hypokalemia Lab Schedule 11/30/2020 Z51.81 Encounter for therapeutic drug l evel monitoring Balbina Kang Zac [facility] 11/30/2020 I10 Essential (primary) hypertension Balbina Pearl Zac, [facility] 11/30/2020 Z79.01 alf (current) use of antic oagulants Balbina Kang Zac [facility] 11/30/2020 Z51.81 Encounter for therapeutic drug l evel monitoring Protime 11/30/2020 S75.891D Other specified inju ry of other blood vessels at hip and thigh level, right leg, subsequent encounter Balbina Crespo [facility] 11/30/2020 Z79.01 alf (current) use of antic oagulants Protime 11/30/2020 I10 Essential (primary) hypertension Lab Schedule 11/30/2020 S75.891D Other specified inju ry of other blood vessels at hip and thigh level, right leg, subsequent encounter Protime 11/30/2020 E87.6 Hypokalemia Balbina Crespo, [facility] 11/30/2020 E87.6 Hypokalemia Lab Schedule 10/25/2020 Z51.81 Encounter for therapeutic drug l evel monitoring Balbina Crespo [facility] 10/25/2020 Z51.81 Encounter for therapeutic drug l evel monitoring Protime 10/25/2020 Z79.01 exterminator termite (current) use of antic oagulants Balbina Crespo [facility] 10/25/2020 Z79.01 alf (current) use of antic oagulants Protime 10/25/2020 S75.891D Other specified inju ry of other blood vessels at hip and thigh level, right leg, subsequent encounter Balbina Crespo [facility] 10/25/2020 I35.0 Nonrheumatic aortic (valve) sten osis Frederick Tristan, DO 10/25/2020 S75.891D Other specified inju ry of other blood vessels at hip and thigh level, right leg, subsequent encounter Protime 10/25/2020 I25.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 with Frederick Tristan, DO 10/25/2020 [...] therapeutic drug l evel monitoring Balbina Crespo, [facility] 09/11/2020 Z51.81 Encounter for therapeutic drug l evel monitoring Protime 09/11/2020 Z79.01 alf (current) use of antic oagulants Balbina Pearl Frank, [facility] 09/11/2020 Z79.01 alf (current) use of antic oagulants Protime 09/11/2020 S75.891D Other specified inju ry of other blood vessels at hip and thigh level, right leg, subsequent encounter Balbina Crespo, [facility] 09/11/2020 S75.891D Other specified inju ry of other blood vessels at hip and thigh level, right leg, subsequent encounter Protime 09/05/2020 I10 Essential (primary) hypertension Balbina Pearl Frank, [facility] 09/05/2020 Z51.81 Encounter for therapeutic drug l evel monitoring Balbina Crespo, [facility] 09/05/2020 E87.6 Hypokalemia Balbina Pearl Frank, [facility] 09/05/2020 Z51.81 Encounter for therapeutic drug l evel monitoring Protime 09/05/2020 Z79.01 exterminator termite (current) use of antic oagulants Balbina Pearl Frank, [facility] 09/05/2020 Z79.01 alf (current) use of antic oagulants Protime 09/05/2020 S75.891D Other specified inju ry of other blood vessels at hip and thigh level, right leg, subsequent encounter Balbina Pearl Frank, [facility] 09/05/2020 S75.891D Other specified inju ry of other blood vessels at hip and thigh level, right leg, subsequent encounter Protime 08/28/2020 Z51.81 Encounter for therapeutic drug l evel monitoring Balbina Pearl Frakn, [facility] 08/28/2020 Z51.81 Encounter for therapeutic drug l evel monitoring Protime 08/28/2020 Z79.01 alf (current) use of antic oagulants Balbina Pearl Zac, [facility] 08/28/2020 Z79.01 exterminator termite (current) use of antic oagulants Protime 08/28/2020 S75.891D Other specified inju ry of other blood vessels at hip and thigh level, right leg, subsequent encounter Balbina Crespo [facility] 08/28/2020 S75.891D Other specified inju ry of other blood vessels at hip and thigh level, right leg, subsequent encounter Protime 08/22/2020 Z51.81 Encounter for therapeutic drug l evel monitoring Protime 08/22/2020 Z79.01 alf (current) use of antic oagulants Protime 08/22/2020 S75.891D Other specified inju ry of other blood vessels at hip and thigh level, right leg, subsequent encounter Protime 08/14/2020 Z51.81 Encounter for therapeutic drug l evel monitoring Balbina Crespo [facility] 08/14/2020 Z51.81 Encounter for therapeutic drug l evel monitoring [facility] 08/14/2020 S75.891D Other specified inju ry of other blood vessels at hip and thigh level, right leg, subsequent encounter Balbina Crespo [facility] 08/14/2020 S75.891D Other specified inju ry of other blood vessels at hip and thigh level, right leg, subsequent encounter Protime 08/14/2020 Z79.01 alf (current) use of antic oagulants Balbina Crespo [facility] 08/14/2020 Z79.01 alf (current) use of antic oagulants [facility] 08/07/2020 Z51.81 Encounter for therapeutic drug l evel monitoring Balbina Crespo [facility] 08/07/2020 I10 Essential (primary) hypertension NICKY Morris JR 08/07/2020 S75.891D Other specified inju ry of other blood vessels at hip and thigh level, right leg, subsequent encounter Balbina Crespo [facility] 08/07/2020 Z79.01 alf (current) use of antic oagulants NICKY Morris JR 08/07/2020 E78.00 Pure hypercholesterolemia, unspe cified NICKY Morris JR 08/07/2020 Z51.81 Encounter for therapeutic drug l evel monitoring [facility] 08/07/2020 Z79.01 alf (current) use of antic oagulants ELENA Lucas 08/07/2020 R01.1 Cardiac murmur, unspecified Robe rt NICKY Valderrama JR 08/07/2020 S75.891D Other specified inju ry of other blood vessels at hip and thigh level, right leg, subsequent encounter [facility] 08/07/2020 I73.9 Peripheral vascular disease, uns pecified NICKY Morris JR 08/07/2020 I25.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 with NICKY Morris JR 08/07/2020 E03.9 Hypothyroidism, unspecified Robe rt NICKY Valderrama JR 08/07/2020 Z79.01 exterminator termite (current) use of antic oagulants [facility] 08/07/2020 [...] l evel monitoring ELENA Lucas 07/17/2020 Z79.01 alf (current) use of antic oagulants [facility] 07/17/2020 Z79.01 alf (current) use of antic oagulants ELENA Lucas 07/17/2020 S75.891D Other specified inju ry of other blood vessels at hip and thigh level, right leg, subsequent encounter [facility] 07/17/2020 S75.891D Other specified inju ry of other blood vessels at hip and thigh level, right leg, subsequent encounter ELENA Lucas Plan of Treatment Future Appointment(s):* 01/19/2021 11:00 am - [facility] at [facility] * 01/05/2021 11:20 am - Nurse #2 at [facility] * 01/05/2021 10:45 am - [facility] at [facility] * 02/07/2021 8:00 am - ELENA Lucas at [facility] * 01/05/2021 11:40 am - Sameer Tristan MD at [facility] 01/03/2021 - ELENA Lucas* J43.2 Centrilobular emphysema* Comments:* continue Advair.Will arrange PFT's * F41.9 Anxiety disorder, unspecified* Comments:* Recommend starting Escitalopram. Denies suicidal ideation.Will provide Alprazolam 0,25mg to 1/2 tablet daily x 2 then 1/2 tablet daily x 2 days then only as needed. Do not plan to refill Alprazolam. * I50.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 systolic (congestive) and diastolic (congestive) heart failure* Comments:* Clinically euvolemic on his current treatment of Furosemide 40mg two each morning. He has know LVEF of 35 %. He has BiV ICD.Would consider changing his Atenolol to Metoprolol Succinate or Carvedilol. Consider starting Entresto. 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 Remains on Clopidogrel, Atorvastatin and Betablocker. 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 Verbal and written instructions given. Signs and symptoms to re port reviewed. No evidence of thromboembolic or bleeding events. * All * New Medication:* Alprazolam 0.25 mg - 1/2 - one tablet twice daily as needed anxiety Functional Status Description No Information Available Mental Status Description No Information Available Referrals Description No Information Available
--- OUTSIDE RECORDS SUMMARY | 2021-01-09 15:43 | CCD | Continuity of Care Document ---
Author Author Yovany Pena Organization Unknown Address [address] [place] [address] Phone [phone] Care Team Providers Care Golf Cart Maker Name Role Phone Sameer Tristan JR, MD AUTM Unavailable Nicolas Albert MD AUTM [phone] Dick Medina MD AUTM [phone] Servando Collins MD AUTM [phone] Clara Lagunas OD AUTM Unavailable Renetta Swanson MD AUTM [phone] Brenda Mcgraw AUTM [phone] Problems Active Problems Provider Date Anticoagulants Skilled Nursing (Current) Use O nset: 01/25/1997 Injury Blood [...] every 12 hours 14caps N39.0 Balbina Crespo [facility] 12/20 - 12/20/2020 Medications Administered in Office Medication SIG Qnty Indications Ordering Provider Date Administration Of Flu Vaccine Inj ection Balbina Crespo [facility] 12/20/2020 Immunization Adminstration,1 Vaccine/Tox oid Injection Balbina Crespo [facility] 12/20/2020 Covid-19 vaccine, Unspecified Inj ection Unknown 07/26/2020 Covid-19 vaccine, Unspecified Inj ection Unknown 06/24/2020 Administration Of Flu Vaccine Inj hernan Tristan MD 12/29/2019 Administration Of Flu Vaccine Inj ection Sameer Tristan MD 12/28/2018 Administration Of Flu Vaccine [...] CPT Code Status Date Vaccine Lot # [id number] Given 12/20/2020 Adacel- Tetanus Diphtheria P ertussis [id number] 50324 Given 12/20/2020 Influenza Vaccin e Quadrivalent Preser/Antibiotic Free Im Use 72223 Given 12/20/2020 Influenza Vaccin e Quadrivalent Preser/Antibiotic Free Im Use [id number] 63598 Given 12/20/2020 Adacel- Tetanus Diphtheria P ertussis 49813 Given 12/29/2019 Influenza Vaccin e Quadrivalent Preser/Antibiotic [place] Use 82564 Given 12/28/2018 Influenza Vaccin e Quadrivalent Preser/Antibiotic Free Im Use [id number] 03415 Given 01/05/2018 Influenza Virus Vaccine, Quadrivalent ([id number]), Derived From 9 Given 12/02/2017 Shingrix U-Td Given 10/28/2017 Td(Adult)(Tetanus, Diphtheri a) unspecified 96918 Given 09/09/2017 Shingrix 02550 Given 01/01/2017 Influenza Vaccin e Quadrivalent Preser/Antibiotic Free Im Use [id number] Q2037 Given 01/16/2016 Fluvirin Virus Vaccine 73916 01 Q2037 Given 12/23/2014 Fluvirin Virus Vaccine 38650 01 17667 Given 04/29/2014 Prevnar 13 [id number] Q2037 Given 01/12/2014 Fluvirin Virus Vaccine 31874 01 01800 Given 01/23/2007 Pneumovax 23 62913 Given 08/20/2005 Tetanus/Diptheria(Td)Toxoids Preservative Free 59364 Given 07/26/1997 Pneumovax 23 [id number] Refused 12/20/2011 [...] Wi-Inr Inr 1.9 Complete Blood Count 12/20/2020 [facility] Vat Cleaner: [place] [address] [phone] WBC 11.6 x10*3/UL High 4.1 - 10.9 [...] 2.0 - 7.8 Basic Metabolic Panel 12/20/2020 [facility]at [facility]er: [place] [address] [phone] Glucose 108 mg/dL High 74 - 99 [...] Low >60 3 Laboratory test finding 12/20/2020 [facility] [address] [place] [address] [phone] Urine Culture FULL REPORT IN L <SEE NOTE> Normal 4 Ua Dipstick Only 12/20/2020 [facility] , Vat Cleaner: [place] [address] [phone] Urine Color YELLOW Yellow Urine Appearance CLOUDY Abnormal Clear Urine PH 6.0 units 5.0 - 9.0 Urine Specific [place] 1.010 1.005 - 1.030 Urine Leukocytes LARGE Abnormal Negative Urine Blood SMALL Abnormal Negative Urine Protein 1+ Abnormal Negative -Trace Urine Glucose NEGATIVE mg/dL Negative Urine Nitrite POSITIVE Abnormal Negative Urine Ketone NEGATIVE mg/dL Negative Urine Bilirubin NEGATIVE Negative Urine Urobilinogen 0.2 mg/dL 0.2 - 1.0 Laboratory test finding 12/13/2020 Wi-Inr Inr 4.8 Complete Blood Count 12/13/2020 [facility] Vat Cleaner: [place] [address] [phone] WBC 14.4 x10*3/UL High 4.1 - 10.9 [...] 2.0 - 7.8 Basic Metabolic Panel 12/13/2020 [facility] Vat Cleaner: [place] [address] [phone] Glucose 120 mg/dL High 74 - 99 [...] mL/min >60 7 Laboratory test finding 12/13/2020 [facility] [employer] [facility] [employer] leon, Vat Cleaner: Dr Sameer [place]pp[place] [id number] [phone] Magnesium 1.5 mg/dL Low 1.8 - 2.4 Laboratory test finding 12/04/2020 [facility] [employer] [facility] [employer] [facility] Vat Cleaner: [place] [address] [phone] Potassium 3.9 mEq/L 3.5 - 5.1 Basic Metabolic Panel 11/30/2020 [facility] Vat Cleaner: [place] [address] [phone] Glucose 94 mg/dL 74 - 99 8 [...] mL/min >60 10 Laboratory test finding 11/30/2020 [facility] Ken quintero, Vat Cleaner: Dr Sameer Coppola [place] [id number] [phone] Magnesium 1.3 mg/dL Low 1.8 - 2.4 Laboratory test finding 11/30/2020 [facility] 3.1 Complete Blood Count 10/25/2020 [facility], Vat Cleaner: [place] [address] [phone] WBC 10.3 x10*3/UL 4.1 - 10.9 RBC [...] 2.0 - 7.8 Comprehensive Chem Profile 10/25/2020 [facility] lorri Echevarria Vat Cleaner: [place] [address] [phone] Glucose 100 mg/dL High 74 - 99 [...] Wi-Inr Inr 3.4 Complete Blood Count 09/05/2020 [facility] [employer] lorri quezada Vat Cleaner: [place] [address] [phone] WBC 12.1 x10*3/UL High 4.1 - 10.9 [...] 2.0 - 7.8 Basic Metabolic Panel 09/05/2020 [facility] Vat Cleaner: [place] [address] [phone] Glucose 108 mg/dL High 74 - 99 [...] mL/min >60 15 Laboratory test finding 09/05/2020 [facility] Vat Cleaner: Dr Sameer Tristan [place], [place] [id number] [phone] Magnesium 1.6 mg/dL Low 1.8 - 2.4 Laboratory test finding 08/28/2020 [facility] 3.7 Laboratory test finding 08/22/2020 [facility] 4.1 Laboratory test finding 08/14/2020 [facility] 3.9 Laboratory test finding 08/07/2020 [facility] In[facility] 1.5 Complete Blood Count 08/07/2020 [facility] Vat Cleaner: [place] [address] [phone] WBC 10.6 x10*3/UL 4.1 - 10.9 RBC [...] 2.0 - 7.8 Basic Metabolic Panel 08/07/2020 [facility] Vat Cleaner: Dr Sameer Tristan [place], [place] [id number] [phone] Glucose 103 mg/dL High 74 - 99 [...] mL/min >60 18 Coronavirus 2019 Nasopharygeal 07/28/[address] [facility] [address] [place] [address] [phone] Coronavirus 2019 Nasopharygeal ASSAY INFORMATIO <SEE N OTE> 19 Laboratory test finding 07/17/2020 Wi-In[facility] Inr 3.2 Coronavirus 2019 Nasopharygeal 07/15/2020 [facility] [address] [place] [address] [phone] Coronavirus 2019 Nasopharygeal ASSAY INFORMATIO <SEE N [...] LITTLE GFR LEFT ESRD GFR <15 ON FLIGHT OPERATIONS INSPECTOR 4 FULL REPORT IN LAB NOTES (eC [...] LITTLE GFR LEFT ESRD GFR <15 ON FLIGHT OPERATIONS INSPECTOR 8 100-125 mg/dL PRE-DIABET ES/FASTING >126 mg/dL DIABETES/FASTING 9 NOTE: RESULT VERIFIED. 10 CHRONIC KIDNEY DISEASE STAGI NG PER NKF STAGE I & II GFR >= 60 NORMAL TO MILDLY DECREASED STAGE III GFR 30-59 MODERATELY DECREASED STAGE IV GFR 15-29 SEVERELY DECREASED STAGE V GFR <15 VERY LITTLE GFR LEFT ESRD GFR <15 ON FLIGHT OPERATIONS INSPECTOR 11 100-125 mg/dL PRE-DIABET ES/FASTING >126 mg/dL DIABETES/FASTING 12 CHRONIC KIDNEY DISEASE STAGI NG PER NKF STAGE I & II GFR >= 60 NORMAL TO MILDLY DECREASED STAGE III GFR 30-59 MODERATELY DECREASED STAGE IV GFR 15-29 SEVERELY DECREASED STAGE V GFR <15 VERY LITTLE GFR LEFT ESRD GFR <15 ON FLIGHT OPERATIONS INSPECTOR 13 NOTE: RESULT VERIFIED. 14 100-125 mg/dL PRE-DIABET ES/FASTING >126 mg/dL DIABETES/FASTING 15 CHRONIC KIDNEY DISEASE STAGI NG PER NKF STAGE I & II GFR >= 60 NORMAL TO MILDLY DECREASED STAGE III GFR 30-59 MODERATELY DECREASED STAGE IV GFR 15-29 SEVERELY DECREASED STAGE V GFR <15 VERY LITTLE GFR LEFT ESRD GFR <15 ON FLIGHT OPERATIONS INSPECTOR 16 100-125 mg/dL PRE-DIABET ES/FASTING >126 mg/dL DIABETES/FASTING 17 NOTE: RESULT VERIFIED. 18 CHRONIC KIDNEY DISEASE STAGI NG PER NKF STAGE I & II GFR >= 60 NORMAL TO MILDLY DECREASED STAGE III GFR 30-59 MODERATELY DECREASED STAGE IV GFR 15-29 SEVERELY DECREASED STAGE V GFR <15 VERY LITTLE GFR LEFT ESRD GFR <15 ON FLIGHT OPERATIONS INSPECTOR 19 ASSAY INFORMATION: Real Time RT-PCR NOTE: The COVID-19 assay has been cleared by the U.S. Food and Drug Administration under the Emergency Use Authorization (EUA). [facility] and [facility] are designated as high complexity laboratories by the Clinical Laboratory Improvement Amendments of 1988(CLIA) and are qualified to perform this test. Not Detected 20 ASSAY INFORMATION: Real Time RT-PCR NOTE: The COVID-19 assay has been cleared by the U.S. Food and Drug Administration under the Emergency Use Authorization (EUA). [facility] and [facility] are designated as high complexity laboratories by the Clinical Laboratory Improvement Amendments of 1988(CLIA) and are qualified to perform this test. Not Detected Procedures Date Code Description Status 12/20/2020 28305 Office/Outpatient Established Lo w MDM 20-29 Min Completed 12/13/2020 35084 Office/Outpatient Established Mo d MDM 30-39 Min Completed 12/13/2020 81646 Office/Outpatient Established Mo d MDM 30-39 Min Completed 12/13/2020 64269 EKG/Interpretation & Report Comp leted 12/13/2020 65523 EKG/Interpretation & Report Comp leted 10/25/2020 02446 Office/Outpatient Established Mo d MDM 30-39 Min Completed 08/07/2020 55705 Office/Outpatient Established Mo d MDM 30-39 Min Completed 10/06/2013 95437802 Colonoscopy Completed 06/16/2006 [id number] Colonoscopy Completed 12/12/2005 [id number] Mammogram Completed Medical Devices Description No Information Available Encounters Type Date Location Provider Dx Diagnosis Office Visit 12/20/2020 7:40a [facility] Balbina Vincent ne, WIRE FENCE BUILDER N39.0 Urinary tract infection, site not specif ied R06.02 Shortness of breath E87.6 Hypokalemia Z79.01 long term care phlebotomist (current) use of a nticoagulants S41.111A Laceration w/o foreign body of right upper arm, init encntr W10.8xxA Fall (on) (from) other stair s and steps, initial encounter Z23 Encounter for immunization Office Visit 12/13/2020 3:20p [facility] Balbina Vincent ne, WIRE FENCE BUILDER I50.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 systolic and diastolic hrt fail I25.119 Athscl heart disease of lux ve cor art w unsp ang pctrs E83.42 Hypomagnesemia J44.1 Chronic obstructive pulmonar y disease w (acute) exacerbation Z87.891 Personal history of nicotine dependence Z79.01 long term care phlebotomist (current) use of a nticoagulants R79.1 Abnormal coagulation profile D72.829 Elevated white blood cell co unt, unspecified Z98.61 Coronary angioplasty status Z95.810 Presence of automatic (impla ntable) cardiac defibrillator Office Visit 10/25/2020 9:00a [facility] Aravind Tristan DO I35.0 Nonrheumatic aortic (valve) stenosis 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 I50.22 Chronic systolic (congestive ) heart failure I44.2 Atrioventricular block, comp lete I10 Essential (primary) hyperten mena Z79.01 care home (current) use of a nticoagulants Z51.[address] ug level monitoring Office Visit 08/07/2020 8:40a [facility] Prosper sarah Whitley JR, PA I10 Essential (primary) hyperten mena Z79.01 care home (current) use of a nticoagulants E78.00 Pure [...] Provider 01/03/2021 J43.2 Centrilobular emphysema Balbina Caballero, [facility] 01/03/2021 F41.9 Anxiety disorder, unspecified An n Pearl Frank [facility] 01/03/2021 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 Balbina Crespo [facility] 01/03/2021 I25.119 Atherosclerotic hear t disease of [place] coronary artery with unspecified angina pectoris Balbina Crespo [facility] 01/03/2021 Z51.81 Encounter for therapeutic drug l evel monitoring [facility] 01/03/2021 Z79.01 alf (current) drug use for prophylactic purposes Balbina Crespo [facility] 01/03/2021 S75.891D Other specified inju ry of other blood vessels at hip and thigh level, right leg, subsequent encounter [facility] 12/27/2020 S75.891D Other specified inju ry of other blood vessels at hip and thigh level, right leg, subsequent encounter Balbina Crespo, [facility] 12/27/2020 S75.891D Other specified inju ry of other blood vessels at hip and thigh level, right leg, subsequent encounter [facility] 12/27/2020 Z79.01 care home (current) use of antic oagulants Balbina Crespo, [facility] 12/27/2020 Z79.01 long term care phlebotomist (current) use of antic oagulants [facility] 12/27/2020 Z51.81 Encounter for therapeutic drug l evel monitoring Balbina Crespo, [facility] 12/27/2020 Z51.81 Encounter for therapeutic drug l evel monitoring [facility] 12/20/2020 Z51.81 Encounter for therapeutic drug l evel monitoring Balbina Crespo, [facility] 12/20/2020 Z51.81 Encounter for therapeutic drug l evel monitoring [facility] 12/20/2020 Z79.01 long term care phlebotomist (current) use of antic oagulants Balbina Crespo, [facility] 12/20/2020 Z79.01 long term care phlebotomist (current) use of antic oagulants [facility] 12/20/2020 S75.891D Other specified inju ry of other blood vessels at hip and thigh level, right leg, subsequent encounter Balbina Crespo, [facility] 12/20/2020 N39.0 Urinary tract infection, site no t specified Balbina Crespo, [facility] 12/20/2020 S75.891D Other specified inju ry of other blood vessels at hip and thigh level, right leg, subsequent encounter [facility] 12/20/2020 R06.02 Shortness of breath Balbina Pearl Frank, [facility] 12/20/2020 E87.6 Hypokalemia Balbina Crespo, [facility] 12/20/2020 Z79.01 care home (current) use of antic oagulants Balbina Pearl Frank, [facility] 12/20/2020 S41.111A Laceration without f oreign body of right upper arm, initial encounter Balbina Pearl Frank, [facility] 12/20/2020 W10.8xxA Fall (on) (from) other stairs an d steps, initial encounter Balbina Crespo [facility] 12/20/2020 Z23 Encounter for immunization Balbina Frank, [facility] 12/13/2020 Z51.81 Encounter for therapeutic drug l evel monitoring Balbina Crespo, [facility] 12/13/2020 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 Balbina Crespo, [facility] 12/13/2020 I25.119 Atherosclerotic hear t disease of [place] coronary artery with unspecified angina pectoris Balbina Crespo, [facility] 12/13/2020 Z79.01 long term care phlebotomist (current) use of antic oagulants Balbina Crespo, [facility] 12/13/2020 E83.42 Hypomagnesemia Balbina Crespo, [facility] 12/13/2020 J44.1 Chronic obstructive pulmonary disease with (acute) exacerbation Balbina Crespo [facility] 12/13/2020 Z87.891 Personal history of nicotine dep endence Balbina Crespo, [facility] 12/13/2020 Z51.81 Encounter for therapeutic drug l evel monitoring [facility] 12/13/2020 S75.891D Other specified inju ry of other blood vessels at hip and thigh level, right leg, subsequent encounter Balbina Crespo [facility] 12/13/2020 Z79.01 care home (current) use of antic oagulants Balbina Crespo [facility] 12/13/2020 R79.1 Abnormal coagulation profile Balbina Crespo [facility] 12/13/2020 D72.829 Elevated white blood cell count, unspecified Balbina Crespo, [facility] 12/13/2020 Z79.01 care home (current) use of antic oagulants [facility] 12/13/2020 S75.891D Other specified inju ry of other blood vessels at hip and thigh level, right leg, subsequent encounter [facility] 12/13/2020 Z98.61 Coronary angioplasty status Balbina Crespo [facility] 12/13/2020 Z95.810 Presence of automatic (implantab le) cardiac defibrillator Balbina Crespo [facility] 12/11/2020 R06.02 Shortness of breath Grady le JR, PA 12/04/2020 E87.6 Hypokalemia Balbina Pearl Frank [facility] 12/04/2020 E87.6 Hypokalemia Lab Schedule 11/30/2020 Z51.81 Encounter for therapeutic drug l evel monitoring Balbina Kang Zac [facility] 11/30/2020 I10 Essential (primary) hypertension Balbina Pearl Zac, [facility] 11/30/2020 Z79.01 long term care phlebotomist (current) use of antic oagulants Balbina Kang Zac [facility] 11/30/2020 Z51.81 Encounter for therapeutic drug l evel monitoring [facility] 11/30/2020 S75.891D Other specified inju ry of other blood vessels at hip and thigh level, right leg, subsequent encounter Balbina Crespo [facility] 11/30/2020 Z79.01 long term care phlebotomist (current) use of antic oagulants [facility] 11/30/2020 I10 Essential (primary) hypertension Lab Schedule 11/30/2020 S75.891D Other specified inju ry of other blood vessels at hip and thigh level, right leg, subsequent encounter [facility] 11/30/2020 E87.6 Hypokalemia Balbina Crespo [facility] 11/30/2020 E87.6 Hypokalemia Lab Schedule 10/25/2020 Z51.81 Encounter for therapeutic drug l evel monitoring Balbina Crespo [facility] 10/25/2020 Z51.81 Encounter for therapeutic drug l evel monitoring Protime 10/25/2020 Z79.01 long term care phlebotomist (current) use of antic oagulants Balbina Crespo [facility] 10/25/2020 Z79.01 care home (current) use of antic oagulants [facility] 10/25/2020 S75.891D Other specified inju ry of other blood vessels at hip and thigh level, right leg, subsequent encounter Balbina Crespo [facility] 10/25/2020 I35.0 Nonrheumatic aortic (valve) sten osis Frederick Tristan, DO 10/25/2020 S75.891D Other specified inju ry of other blood vessels at hip and thigh level, right leg, subsequent encounter [facility] 10/25/2020 I25.10 Atherosclerotic heart disease of [place] coronary artery with Frederick Tristan, DO 10/25/2020 I50.22 Chronic systolic (congestive) he art failure Frederick Tristan, DO 10/25/2020 I44.2 Atrioventricular block, complete Frederick Tristan, DO 10/25/2020 I10 Essential (primary) hypertension Frederick Tristan, DO 10/25/2020 Z79.01 long term care phlebotomist (current) use of antic oagulants Frederick Tristan, DO 10/25/2020 Z51.81 Encounter for therapeutic drug l evel monitoring Frederick Valenzuelalogg, DO 09/11/2020 Z51.81 Encounter for therapeutic drug l evel monitoring Balbina Crespo, [facility] 09/11/2020 Z51.81 Encounter for therapeutic drug l evel monitoring [facility] 09/11/2020 Z79.01 care home (current) use of antic oagulants Balbina Pearl Frank, [facility] 09/11/2020 Z79.01 care home (current) use of antic oagulants [facility] 09/11/2020 S75.891D Other specified inju ry of other blood vessels at hip and thigh level, right leg, subsequent encounter Balbina Pearl Frank, [facility] 09/11/2020 S75.891D Other specified inju ry of other blood vessels at hip and thigh level, right leg, subsequent encounter Protime 09/05/2020 I10 Essential (primary) hypertension Balbina Pearl Frank, [facility] 09/05/2020 Z51.81 Encounter for therapeutic drug l evel monitoring Balbina Crespo, [facility] 09/05/2020 E87.6 Hypokalemia Balbina Pearl Frank, [facility] 09/05/2020 Z51.81 Encounter for therapeutic drug l evel monitoring [facility] 09/05/2020 Z79.01 care home (current) use of antic oagulants Balbina Pearl Frank, [facility] 09/05/2020 Z79.01 long term care phlebotomist (current) use of antic oagulants [facility] 09/05/2020 S75.891D Other specified inju ry of other blood vessels at hip and thigh level, right leg, subsequent encounter Balbina Pearl Frank [facility] 09/05/2020 S75.891D Other specified inju ry of other blood vessels at hip and thigh level, right leg, subsequent encounter [facility] 08/28/2020 Z51.81 Encounter for therapeutic drug l evel monitoring Balbina Pearl Frank, [facility] 08/28/2020 Z51.81 Encounter for therapeutic drug l evel monitoring Protime 08/28/2020 Z79.01 long term care phlebotomist (current) use of antic oagulants Balbina Crespo, [facility] 08/28/2020 Z79.01 long term care phlebotomist (current) use of antic oagulants [facility] 08/28/2020 S75.891D Other specified inju ry of other blood vessels at hip and thigh level, right leg, subsequent encounter Balbina Crespo [facility] 08/28/2020 S75.891D Other specified inju ry of other blood vessels at hip and thigh level, right leg, subsequent encounter Protime 08/22/2020 Z51.81 Encounter for therapeutic drug l evel monitoring Protime 08/22/2020 Z79.01 care home (current) use of antic oagulants Protime 08/22/2020 S75.891D Other specified inju ry of other blood vessels at hip and thigh level, right leg, subsequent encounter Protime 08/14/2020 Z51.81 Encounter for therapeutic drug l evel monitoring Balbina Crespo [facility] 08/14/2020 Z51.81 Encounter for therapeutic drug l evel monitoring [facility] 08/14/2020 S75.891D Other specified inju ry of other blood vessels at hip and thigh level, right leg, subsequent encounter Balbina Crespo [facility] 08/14/2020 S75.891D Other specified inju ry of other blood vessels at hip and thigh level, right leg, subsequent encounter Protime 08/14/2020 Z79.01 care home (current) use of antic oagulants Balbina Crespo [facility] 08/14/2020 Z79.01 long term care phlebotomist (current) use of antic oagulants [facility] 08/07/2020 Z51.81 Encounter for therapeutic drug l evel monitoring Balbnia Crespo [facility] 08/07/2020 I10 Essential (primary) hypertension NICKY Morris JR 08/07/2020 S75.891D Other specified inju ry of other blood vessels at hip and thigh level, right leg, subsequent encounter Balbina Crespo [facility] 08/07/2020 Z79.01 long term care phlebotomist (current) use of antic oagulants NICKY Morris JR 08/07/2020 E78.00 Pure hypercholesterolemia, unspe cified NICKY Morris JR 08/07/2020 Z51.81 Encounter for therapeutic drug l evel monitoring Protime 08/07/2020 Z79.01 care home (current) use of antic oagulants ELENA Lucas 08/07/2020 R01.1 Cardiac murmur, unspecified Robe rt NICKY Valderrama JR 08/07/2020 S75.891D Other specified inju ry of other blood vessels at hip and thigh level, right leg, subsequent encounter [facility] 08/07/2020 I73.9 Peripheral vascular disease, uns pecified NICKY Morris JR 08/07/2020 I25.10 Atherosclerotic heart disease of [place] coronary artery with NICKY Morris JR 08/07/2020 E03.9 Hypothyroidism, unspecified Robe rt NICKY Valderrama JR 08/07/2020 Z79.01 care home (current) use of antic oagulants Protime [...] l evel monitoring ELENA Lucas 07/17/2020 Z79.01 care home (current) use of antic oagulants Protime 07/17/2020 Z79.01 long term care phlebotomist (current) use of antic oagulants ELENA Lucas 07/17/2020 S75.891D Other specified inju ry of other blood vessels at hip and thigh level, right leg, subsequent encounter Protime 07/17/2020 S75.891D Other specified inju ry of other blood vessels at hip and thigh level, right leg, subsequent encounter ELENA Lucas Plan of Treatment Future Appointment(s):* 01/19/2021 11:00 am - [facility] at [facility] * 01/05/2021 11:20 am - Nurse #2 at [facility] * 01/05/2021 10:45 am - [facility] at [facility] * 02/07/2021 8:00 am - ELENA Lucas at [facility] * 01/05/2021 11:40 am - Sameer Tristan MD at [facility] 01/03/2021 - ELENA Lucas* J43.2 [...] Entresto. 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 Remains on Clopidogrel, Atorvastatin and Betablocker. * Z79.01 alf (current) drug use for prophylactic purposes* Comments:* [...]
--- OUTSIDE RECORDS SUMMARY | 2021-01-09 15:43 | CCD | Continuity of Care Document ---
Author Author Yovany Lucas Organization Unknown Address [address] [place] [address] [address] [place] [address] Phone [phone] Care Team Providers Care Flitch Hanger Name Role Phone Sameer Tristan JR, MD AUTM Unavailable Nicolas Albert MD AUTM [phone] Dick Medina MD AUTM [phone] Servando Collins MD AUTM [phone] Clara Lagunas OD AUTM Unavailable Renetta Swanson MD AUTM [phone] Brenda Mcgraw AUTM [phone] Problems Active Problems Provider Date Anticoagulants [facility] (Current) Use O nset: 01/25/1997 Injury Blood Vessel(S) Lower Extrem Other Specified Onset: 01/25/1997 Coronary arteriosclerosis Sameer Tristan MD Onset: 10/21 Chronic obstructive lung disease Sameer Tristan MD Onset : 10/21/2010 Gastroesophageal reflux disease Sameer Tristan MD Onset: 10/21/2010 Graza's esophagus Sameer Tristan MD Onset: 10/21/2010 Old [...] every 12 hours 14caps N39.0 Balbina Crespo [facility] 12/20 - 12/20/2020 Medications Administered in Office Medication SIG Qnty Indications Ordering Provider Date Administration Of Flu Vaccine Inj ection Balbina Crespo [facility] 12/20/2020 Immunization Adminstration,1 Vaccine/Tox oid Injection Balbina Crespo [facility] 12/20/2020 Covid-19 vaccine, Unspecified Inj ection [...] CPT Code Status Date Vaccine Lot # [id number] Given 12/20/2020 Adacel- Tetanus Diphtheria P ertussis [id number] 66778 Given 12/20/2020 Influenza Vaccin e Quadrivalent Preser/Antibiotic Free Im Use 18137 Given 12/20/2020 Influenza Vaccin e Quadrivalent Preser/Antibiotic Free Im Use [id number] 77227 Given 12/20/2020 Adacel- Tetanus Diphtheria P ertussis 14177 Given 12/29/2019 Influenza Vaccin e Quadrivalent Preser/Antibiotic Free Im Use 63881 Given 12/28/2018 Influenza Vaccin e Quadrivalent Preser/Antibiotic Free Im Use 279490 17197 Given 01/05/2018 Influenza Virus Vaccine, Quadrivalent ([id number]), Derived From 7 Given 12/02/2017 Shingrix U-Td Given 10/28/2017 Td(Adult)(Tetanus, Diphtheri a) unspecified 20529 Given 09/09/2017 Shingrix 96799 Given 01/01/2017 Influenza Vaccin e Quadrivalent Preser/Antibiotic Free Im Use [id number] Q2037 Given 01/16/2016 Fluvirin Virus Vaccine 30002 01 Q2037 Given 12/23/2014 Fluvirin Virus Vaccine 36949 01 82114 Given 04/29/2014 Prevnar 13 [id number] Q2037 Given 01/12/2014 Fluvirin Virus Vaccine 04342 01 61320 Given 01/23/2007 Pneumovax 23 47103 Given 08/20/2005 Tetanus/Diptheria(Td)Toxoids Preservative Free 37503 Given 07/26/1997 Pneumovax 23 [id number] Refused 12/20/2011 [...] Wi-Inr Inr 1.9 Complete Blood Count 12/20/2020 [facility] [employer] Tube Molder: [place] [address] [phone] WBC 11.6 x10*3/UL High 4.1 - 10.9 [...] 2.0 - 7.8 Basic Metabolic Panel 12/20/2020 [facility] [employer] Tube Molder: [place] [address] [phone] Glucose 108 mg/dL High 74 - 99 [...] Low >60 3 Laboratory test finding 12/20/2020 [facility] [address] [place] [address] [phone] Urine Culture FULL REPORT IN L <SEE NOTE> Normal 4 Ua Dipstick Only 12/20/2020 [facility] , Fiberg[employer] Tube Molder: [place] [address] [phone] Urine Color YELLOW Yellow Urine Appearance CLOUDY Abnormal Clear Urine PH 6.0 units 5.0 - 9.0 Urine Specific [place] 1.010 1.005 - 1.030 Urine Leukocytes LARGE Abnormal Negative Urine Blood SMALL Abnormal Negative Urine Protein 1+ Abnormal Negative -Trace Urine Glucose NEGATIVE mg/dL Negative Urine Nitrite POSITIVE Abnormal Negative Urine Ketone NEGATIVE mg/dL Negative Urine Bilirubin NEGATIVE Negative Urine Urobilinogen 0.2 mg/dL 0.2 - 1.0 Laboratory test finding 12/13/2020 Wi-Inr Inr 4.8 Complete Blood Count 12/13/2020 [facility], [employer] Tube Molder: [place] [address] [phone] WBC 14.4 x10*3/UL High 4.1 - 10.9 [...] 2.0 - 7.8 Basic Metabolic Panel 12/13/2020 [facility] [employer] Tube Molder: [place] [address] [phone] Glucose 120 mg/dL High 74 - 99 [...] mL/min >60 7 Laboratory test finding 12/13/2020 [facility], Fiberglass Tube Molder: Dr Sameer Coppola [facility] [phone] Magnesium 1.5 mg/dL Low 1.8 - 2.4 Laboratory test finding 12/04/2020 [facility] Fiberg[employer] Tube Molder: [place] [address] [phone] Potassium 3.9 mEq/L 3.5 - 5.1 Basic Metabolic Panel 11/30/2020 [facility] [employer] Tube Molder: [place] [address] [phone] Glucose 94 mg/dL 74 - 99 8 [...] mL/min >60 10 Laboratory test finding 11/30/2020 [facility] Ken quintero [employer] T[employer] Molder: Dr Sameer Coppola [place] [id number] [phone] Magnesium 1.3 mg/dL Low 1.8 - 2.4 Laboratory test finding 11/30/2020 [facility] 3.1 Complete Blood Count 10/25/2020 [facility], [employer] Tube Molder: [place] [address] [phone] WBC 10.3 x10*3/UL 4.1 - 10.9 RBC [...] 2.0 - 7.8 Comprehensive Chem Profile 10/25/2020 [facility] lorri Echevarria [employer] Tube Molder: [place] [address] [phone] Glucose 100 mg/dL High 74 - 99 [...] Wi-Inr Inr 3.4 Complete Blood Count 09/05/2020 [facility] lorri quezada [employer] Tube Molder: [place] [address] [phone] WBC 12.1 x10*3/UL High 4.1 - 10.9 [...] 2.0 - 7.8 Basic Metabolic Panel 09/05/2020 [facility] [employer] Tube Molder: Dr Sameer Tristan [place], [place] [id number] [phone] Glucose 108 mg/dL High 74 - 99 [...] mL/min >60 15 Laboratory test finding 09/05/2020 [facility] [employer] Tube Molder: Dr Sameer Tristan [place], [place] [id number] [phone] Magnesium 1.6 mg/dL Low 1.8 - 2.4 Laboratory test finding 08/28/2020 [facility] 3.7 Laboratory test finding 08/22/2020 [facility] In[facility] 4.1 Laboratory test finding 08/14/2020 Wi-In[facility] Inr 3.9 Laboratory test finding 08/07/2020 Wi-Inr Inr 1.5 Complete Blood Count 08/07/2020 [facility] [employer] T[employer] Molder: [place] [address] [phone] WBC 10.6 x10*3/UL 4.1 - 10.9 RBC [...] 2.0 - 7.8 Basic Metabolic Panel 08/07/2020 [facility] [employer] Tube Molder: Dr Sameer Tristan [place], [place] [id number] [phone] Glucose 103 mg/dL High 74 - 99 [...] mL/min >60 18 Coronavirus 2019 Nasopharygeal 07/28/2020 [facility] [address] [place] [address] [phone] Coronavirus 2019 Nasopharygeal ASSAY INFORMATIO <SEE N OTE> 19 Laboratory test finding 07/17/2020 Wi-Inr Inr 3.2 Coronavirus 2019 Nasopharygeal 07/15/2020 [address] [place] [address] [phone] Coronavirus 2019 Nasopharygeal ASSAY INFORMATIO <SEE N [...] LITTLE GFR LEFT ESRD GFR <15 ON COFFIN MAKER 4 FULL REPORT IN LAB NOTES (eC [...] LITTLE GFR LEFT ESRD GFR <15 ON COFFIN MAKER 8 100-125 mg/dL PRE-DIABET ES/FASTING >126 mg/dL DIABETES/FASTING 9 NOTE: RESULT VERIFIED. 10 CHRONIC KIDNEY DISEASE STAGI NG PER NKF STAGE I & II GFR >= 60 NORMAL TO MILDLY DECREASED STAGE III GFR 30-59 MODERATELY DECREASED STAGE IV GFR 15-29 SEVERELY DECREASED STAGE V GFR <15 VERY LITTLE GFR LEFT ESRD GFR <15 ON COFFIN MAKER 11 100-125 mg/dL PRE-DIABET ES/FASTING >126 mg/dL DIABETES/FASTING 12 CHRONIC KIDNEY DISEASE STAGI NG PER NKF STAGE I & II GFR >= 60 NORMAL TO MILDLY DECREASED STAGE III GFR 30-59 MODERATELY DECREASED STAGE IV GFR 15-29 SEVERELY DECREASED STAGE V GFR <15 VERY LITTLE GFR LEFT ESRD GFR <15 ON COFFIN MAKER 13 NOTE: RESULT VERIFIED. 14 100-125 mg/dL PRE-DIABET ES/FASTING >126 mg/dL DIABETES/FASTING 15 CHRONIC KIDNEY DISEASE STAGI NG PER NKF STAGE I & II GFR >= 60 NORMAL TO MILDLY DECREASED STAGE III GFR 30-59 MODERATELY DECREASED STAGE IV GFR 15-29 SEVERELY DECREASED STAGE V GFR <15 VERY LITTLE GFR LEFT ESRD GFR <15 ON COFFIN MAKER 16 100-125 mg/dL PRE-DIABET ES/FASTING >126 mg/dL DIABETES/FASTING 17 NOTE: RESULT VERIFIED. 18 CHRONIC KIDNEY DISEASE STAGI NG PER NKF STAGE I & II GFR >= 60 NORMAL TO MILDLY DECREASED STAGE III GFR 30-59 MODERATELY DECREASED STAGE IV GFR 15-29 SEVERELY DECREASED STAGE V GFR <15 VERY LITTLE GFR LEFT ESRD GFR <15 ON COFFIN MAKER 19 ASSAY INFORMATION: Real Time RT-PCR NOTE: The COVID-19 assay has been cleared by the U.S. Food and Drug Administration under the Emergency Use Authorization (EUA). [facility] are designated as high complexity laboratories by the Clinical Laboratory Improvement Amendments of 1988(CLIA) and are qualified to perform this test. Not Detected 20 ASSAY INFORMATION: Real Time RT-PCR NOTE: The COVID-19 assay has been cleared by the U.S. Food and Drug Administration under the Emergency Use Authorization (EUA). [facility] are designated as high complexity laboratories by the Clinical Laboratory Improvement Amendments of 1988(CLIA) and are qualified to perform this test. Not Detected Procedures Date Code Description Status 01/03/2021 55929 Office/Outpatient Established Lo w MDM 20-29 Min Completed 12/20/2020 32889 Office/Outpatient Established Lo w MDM 20-29 Min Completed 12/13/2020 90671 Office/Outpatient Established Mo d MDM 30-39 Min Completed 12/13/2020 79388 Office/Outpatient Established Mo d MDM 30-39 Min Completed 12/13/2020 46925 EKG/Interpretation & Report Comp leted 12/13/2020 26611 EKG/Interpretation & Report Comp leted 10/25/2020 88277 Office/Outpatient Established Mo d MDM 30-39 Min Completed 08/07/2020 16545 Office/Outpatient Established Mo d MDM 30-39 Min Completed 10/06/2013 [id number] Colonoscopy Completed 06/16/2006 [id number] Colonoscopy Completed 12/12/2005 [id number] Mammogram Completed Medical Devices Description No Information Available Encounters Type Date Location Provider Dx Diagnosis Office Visit 01/03/2021 11:40a [facility] 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 Balbina Vincent ne, TICKET MAKER I50.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 systolic and diastolic hrt fail I25.119 Athscl heart disease of [place] cor art w unsp ang pctrs E83.42 Hypomagnesemia J44.1 Chronic obstructive pulmonar y disease w (acute) exacerbation Z87.891 Personal history of nicotine dependence Z79.01 [facility] (current) use of a nticoagulants R79.1 Abnormal coagulation profile D72.829 Elevated white blood cell co unt, unspecified Z98.61 Coronary angioplasty status Z95.810 Presence of automatic (impla ntable) cardiac defibrillator Office Visit 10/25/2020 9:00a [facility] 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 E78.00 [...] Provider 01/03/2021 J43.2 Centrilobular emphysema Balbina Caballero, [facility] 01/03/2021 F41.9 Anxiety disorder, unspecified An venkat Crespo [facility] 01/03/2021 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 Balbina Crespo [facility] 01/03/2021 I25.119 Atherosclerotic hear t disease of [place] coronary artery with unspecified angina pectoris Balbina Crespo [facility] 01/03/2021 Z51.81 Encounter for therapeutic drug l evel monitoring [facility] 01/03/2021 Z79.01 residential (current) drug use for prophylactic purposes Balbina Crespo [facility] 01/03/2021 S75.891D Other specified inju ry of other blood vessels at hip and thigh level, right leg, subsequent encounter [facility] 12/27/2020 S75.891D Other specified inju ry of other blood vessels at hip and thigh level, right leg, subsequent encounter Balbina Crespo [facility] 12/27/2020 S75.891D Other specified inju ry of other blood vessels at hip and thigh level, right leg, subsequent encounter [facility] 12/27/2020 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 Balbina Crespo [facility] 12/27/2020 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 [facility] 12/27/2020 Z51.81 Encounter for therapeutic drug l evel monitoring Balbina Crespo, [facility] 12/27/2020 Z51.81 Encounter for therapeutic drug l evel monitoring [facility] 12/20/2020 Z51.81 Encounter for therapeutic drug l evel monitoring Balbina Crespo, [facility] 12/20/2020 Z51.81 Encounter for therapeutic drug l evel monitoring [facility] 12/20/2020 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 Balbina Crespo [facility] 12/20/2020 Z79.01 [facility] (current) use of antic oagulants [facility] 12/20/2020 S75.891D Other specified inju ry of other blood vessels at hip and thigh level, right leg, subsequent encounter Balbina Crespo [facility] 12/20/2020 N39.0 Urinary tract infection, site no t specified Balbina Crespo [facility] 12/20/2020 S75.891D Other specified inju ry of other blood vessels at hip and thigh level, right leg, subsequent encounter [facility] 12/20/2020 R06.02 Shortness of breath Balbina Crespo [facility] 12/20/2020 E87.6 Hypokalemia Balbina Crespo [facility] 12/20/2020 Z79.01 [facility] (current) use of antic oagulants Balbina Crespo, [facility] 12/20/2020 S41.111A Laceration without f oreign body of right upper arm, initial encounter Balbina Crespo, [facility] 12/20/2020 W10.8xxA Fall (on) (from) other stairs an d steps, initial encounter Balbina Crespo [facility] 12/20/2020 Z23 Encounter for immunization Balbina Caroline rosas Frank, [facility] 12/13/2020 Z51.81 Encounter for therapeutic drug l evel monitoring Balbina Crespo, [facility] 12/13/2020 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 Balbina Crespo [facility] 12/13/2020 I25.119 Atherosclerotic hear t disease of [place] coronary artery with unspecified angina pectoris Balbina Crespo [facility] 12/13/2020 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 Balbina Crespo [facility] 12/13/2020 E83.42 Hypomagnesemia Balbina Crespo, [facility] 12/13/2020 J44.1 Chronic obstructive pulmonary disease with (acute) exacerbation Balbina Crespo [facility] 12/13/2020 Z87.891 Personal history of nicotine dep endence Balbina Crespo, [facility] 12/13/2020 Z51.81 Encounter for therapeutic drug l evel monitoring [facility] 12/13/2020 S75.891D Other specified inju ry of other blood vessels at hip and thigh level, right leg, subsequent encounter Balbina Crespo [facility] 12/13/2020 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 Balbina Crespo [facility] 12/13/2020 R79.1 Abnormal coagulation profile Balbina Crespo [facility] 12/13/2020 D72.829 Elevated white blood cell count, unspecified Balbina Crespo [facility] 12/13/2020 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 [facility] 12/13/2020 S75.891D Other specified inju ry of other blood vessels at hip and thigh level, right leg, subsequent encounter [facility] 12/13/2020 Z98.61 Coronary angioplasty status Balbina Crespo [facility] 12/13/2020 Z95.810 Presence of automatic (implantab le) cardiac defibrillator Balbina Crespo, [facility] 12/11/2020 R06.02 Shortness of breath Grady le JR, NICKY 12/04/2020 E87.6 Hypokalemia Balbina Crespo, [facility] 12/04/2020 E87.6 Hypokalemia Lab Schedule 11/30/2020 Z51.81 Encounter for therapeutic drug l evel monitoring Balbina Crespo, [facility] 11/30/2020 I10 Essential (primary) hypertension Balbina Crespo, [facility] 11/30/2020 Z79.01 [facility] (current) use of antic oagulants Balbina Crespo [facility] 11/30/2020 Z51.81 Encounter for therapeutic drug l evel monitoring [facility] 11/30/2020 S75.891D Other specified inju ry of other blood vessels at hip and thigh level, right leg, subsequent encounter Balbina Crespo [facility] 11/30/2020 Z79.01 [facility] (current) use of antic oagulants [facility] 11/30/2020 I10 Essential (primary) hypertension Lab Schedule 11/30/2020 S75.891D Other specified inju ry of other blood vessels at hip and thigh level, right leg, subsequent encounter [facility] 11/30/2020 E87.6 Hypokalemia Balbina Crespo, [facility] 11/30/2020 E87.6 Hypokalemia Lab Schedule 10/25/2020 Z51.81 Encounter for therapeutic drug l evel monitoring Balbina Crespo, [facility] 10/25/2020 Z51.81 Encounter for therapeutic drug l evel monitoring [facility] 10/25/2020 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 Balbina Crespo [facility] 10/25/2020 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 [facility] 10/25/2020 S75.891D Other specified inju ry of other blood vessels at hip and thigh level, right leg, subsequent encounter Balbina Crespo [facility] 10/25/2020 I35.0 Nonrheumatic aortic (valve) sten fareed Tristan, 10/25/2020 S75.891D Other specified inju ry of other blood vessels at hip and thigh level, right leg, subsequent encounter [facility] 10/25/2020 I25.10 Atherosclerotic heart disease of [place] coronary artery with Frederick Tristan, DO 10/25/2020 I50.22 Chronic systolic (congestive) he art failure Frederick Tristan, DO 10/25/2020 I44.2 Atrioventricular block, complete Altonsamantha Tristan, DO 10/25/2020 I10 Essential (primary) hypertension Frederick Tristan, DO 10/25/2020 Z79.01 [facility] (current) use of antic oagulants Frederick Tristan, DO 10/25/2020 Z51.81 Encounter for therapeutic drug l evel monitoring Altonsamantha Valenzuelalogg, DO 09/11/2020 Z51.81 Encounter for therapeutic drug l evel monitoring Balbina Crespo, [facility] 09/11/2020 Z51.81 Encounter for therapeutic drug l evel monitoring [facility] 09/11/2020 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 Balbina Crespo, [facility] 09/11/2020 Z79.01 [facility] (current) use of antic oagulants [facility] 09/11/2020 S75.891D Other specified inju ry of other blood vessels at hip and thigh level, right leg, subsequent encounter Balbina Crespo, [facility] 09/11/2020 S75.891D Other specified inju ry of other blood vessels at hip and thigh level, right leg, subsequent encounter [facility] 09/05/2020 I10 Essential (primary) hypertension Balbina Crespo, [facility] 09/05/2020 Z51.81 Encounter for therapeutic drug l evel monitoring Balbina Crespo, [facility] 09/05/2020 E87.6 Hypokalemia Balbina Crespo [facility] 09/05/2020 Z51.81 Encounter for therapeutic drug l evel monitoring [facility] 09/05/2020 Z79.01 [facility] (current) use of antic oagulants Balbina Crespo, [facility] 09/05/2020 Z79.01 [facility] (current) use of antic oagulants [facility] 09/05/2020 S75.891D Other specified inju ry of other blood vessels at hip and thigh level, right leg, subsequent encounter Balbina Crespo [facility] 09/05/2020 S75.891D Other specified inju ry of other blood vessels at hip and thigh level, right leg, subsequent encounter [facility] 08/28/2020 Z51.81 Encounter for therapeutic drug l evel monitoring Balbina Crespo [facility] 08/28/2020 Z51.81 Encounter for therapeutic drug l evel monitoring [facility] 08/28/2020 Z79.01 [facility] (current) use of antic oagulants Balbina Crespo [facility] 08/28/2020 Z79.01 [facility] (current) use of antic oagulants [facility] 08/28/2020 S75.891D Other specified inju ry of other blood vessels at hip and thigh level, right leg, subsequent encounter Balbina Crespo [facility] 08/28/2020 S75.891D Other specified inju ry of other blood vessels at hip and thigh level, right leg, subsequent encounter [facility] 08/22/2020 Z51.81 Encounter for therapeutic drug l evel monitoring [facility] 08/22/2020 Z79.01 [facility] (current) use of antic oagulants [facility] 08/22/2020 S75.891D Other specified inju ry of other blood vessels at hip and thigh level, right leg, subsequent encounter [facility] 08/14/2020 Z51.81 Encounter for therapeutic drug l evel monitoring Balbina Crespo [facility] 08/14/2020 Z51.81 Encounter for therapeutic drug l evel monitoring [facility] 08/14/2020 S75.891D Other specified inju ry of other blood vessels at hip and thigh level, right leg, subsequent encounter Balbina Crespo [facility] 08/14/2020 S75.891D Other specified inju ry of other blood vessels at hip and thigh level, right leg, subsequent encounter [facility] 08/14/2020 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 Balbina Crespo [facility] 08/14/2020 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 [facility] 08/07/2020 Z51.81 Encounter for therapeutic drug l evel monitoring Balbina Crespo [facility] 08/07/2020 I10 Essential (primary) hypertension Grady Whitley JRNICKY 08/07/2020 S75.891D Other specified inju ry of other blood vessels at hip and thigh level, right leg, subsequent encounter ELENA Lucas 08/07/2020 Z79.01 [facility] (current) use of antic oagulants NICKY Morris JR 08/07/2020 E78.00 Pure hypercholesterolemia, unspe cified NICKY Morris JR 08/07/2020 Z51.81 Encounter for therapeutic drug l evel monitoring [facility] 08/07/2020 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 ELENA Lucas 08/07/2020 R01.1 Cardiac murmur, unspecified Robe NICKY Philippe JR 08/07/2020 S75.891D Other specified inju ry of other blood vessels at hip and thigh level, right leg, subsequent encounter [facility] 08/07/2020 I73.9 Peripheral vascular disease, uns pecified NICKY Morris JR 08/07/2020 I25.10 Atherosclerotic heart disease of [place] coronary artery with NICKY Morris JR 08/07/2020 E03.9 Hypothyroidism, unspecified Robe NICKY Philippe JR 08/07/2020 Z79.01 [facility] (current) use of antic oagulants [facility] 08/07/2020 [...] l evel monitoring ELENA Lucas 07/17/2020 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 [facility] 07/17/2020 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 * 01/05/2021 11:20 am - Nurse #2 at [facility] * 01/05/2021 10:45 am - Protchitra at [facility] * 02/07/2021 8:00 am - ELENA Lucas at [facility] * 01/05/2021 11:40 am - Sameer Tristan MD at [facility] 01/03/2021 - ELENA Lucas* J43.2 [...] Entresto. * I25.119 Atherosclerotic heart disease of [place] coronary artery with unspecified angina pectoris* Comments:* history of ROB. Remains on Clopidogrel, Atorvastatin and Betablocker. 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
--- OUTSIDE RECORDS SUMMARY | 2021-01-09 15:43 | CCD | Continuity of Care Document ---
Author Author Yovany Lucas Organization Unknown Address [address] [place] [address] [address] [place] [address] Phone [phone] Care Team Providers Care Primary Products Inspectors Name Role Phone Sameer Tristan JR, MD AUTM Unavailable Nicolas Albert MD AUTM [phone] Dick Medina MD AUTM [phone] Servando Collins MD AUTM [phone] Clara Lagunas OD AUTM Unavailable Renetta Swanson MD AUTM [phone] Brenda Mcgraw AUTM [phone] Problems Active Problems Provider Date Anticoagulants [facility] (Current) Use O nset: 01/25/1997 Injury Blood [...] every 12 hours 14caps N39.0 Balbina Crespo [facility] 12/20 - 12/20/2020 Medications Administered in Office Medication SIG Qnty Indications Ordering Provider Date Administration Of Flu Vaccine Inj ection Balbina Crespo [facility] 12/20/2020 Immunization Adminstration,1 Vaccine/Tox oid Injection Balbina Crespo [facility] 12/20/2020 Covid-19 vaccine, Unspecified Inj ection [...] CPT Code Status Date Vaccine Lot # [id number] Given 12/20/2020 Adacel- Tetanus Diphtheria P ertussis [id number] 46095 Given 12/20/2020 Influenza Vaccin e Quadrivalent Preser/Antibiotic Free Im Use 47476 Given 12/20/2020 Influenza Vaccin e Quadrivalent Preser/Antibiotic Free Im Use [id number] 09057 Given 12/20/2020 Adacel- Tetanus Diphtheria P ertussis 39865 Given 12/29/2019 Influenza Vaccin e Quadrivalent Preser/Antibiotic Free Im Use 33920 Given 12/28/2018 Influenza Vaccin e Quadrivalent Preser/Antibiotic Free Im Use [id number] 57027 Given 01/05/2018 Influenza Virus Vaccine, Quadrivalent (Cciiv4), Derived From 0 Given 12/02/2017 Shingrix U-Td Given 10/28/2017 Td(Adult)(Tetanus, Diphtheri a) unspecified 70815 Given 09/09/2017 Shingrix 77227 Given 01/01/2017 Influenza Vaccin e Quadrivalent Preser/Antibiotic Free Im Use 449449 Q2037 Given 01/16/2016 Fluvirin Virus Vaccine 53715 01 Q2037 Given 12/23/2014 Fluvirin Virus Vaccine 08828 01 11380 Given 04/29/2014 Prevnar 13 [id number] Q2037 Given 01/12/2014 Fluvirin Virus Vaccine 67992 01 95596 Given 01/23/2007 Pneumovax 23 08704 Given 08/20/2005 Tetanus/Diptheria(Td)Toxoids Preservative Free 19128 Given 07/26/1997 Pneumovax 23 [id number] Refused 12/20/2011 [...] Wi-Inr Inr 1.9 Complete Blood Count 12/20/2020 [facility] Business Investor: [place] [address] [phone] WBC 11.6 x10*3/UL High 4.1 - 10.9 [...] 2.0 - 7.8 Basic Metabolic Panel 12/20/2020 [facility] Business Investor: [place] [address] [phone] Glucose 108 mg/dL High 74 - 99 [...] Low >60 3 Laboratory test finding 12/20/2020 [facility] [address] [place] [address] [phone] Urine Culture FULL REPORT IN L <SEE NOTE> Normal 4 Ua Dipstick Only 12/20/2020 [facility] Business Investor: [place] [address] [phone] Urine Color YELLOW Yellow Urine Appearance CLOUDY Abnormal Clear Urine PH 6.0 units 5.0 - 9.0 Urine Specific Comstock 1.010 1.005 - 1.030 Urine Leukocytes LARGE Abnormal Negative Urine Blood SMALL Abnormal Negative Urine Protein 1+ Abnormal Negative -Trace Urine Glucose NEGATIVE mg/dL Negative Urine Nitrite POSITIVE Abnormal Negative Urine Ketone NEGATIVE mg/dL Negative Urine Bilirubin NEGATIVE Negative Urine Urobilinogen 0.2 mg/dL 0.2 - 1.0 Laboratory test finding 12/13/2020 Wi-In[facility] In[facility] 4.8 Complete Blood Count 12/13/2020 [facility] Business Investor: [place] [address] [phone] WBC 14.4 x10*3/UL High 4.1 - 10.9 [...] 2.0 - 7.8 Basic Metabolic Panel 12/13/2020 [facility] Business Investor: [place] [address] [phone] Glucose 120 mg/dL High 74 - 99 [...] mL/min >60 7 Laboratory test finding 12/13/2020 [facility], Business Investor: Dr Sameer Coppola [facility] [phone] Magnesium 1.5 mg/dL Low 1.8 - 2.4 Laboratory test finding 12/04/2020 [facility] Business Investor: [place] [address] [phone] Potassium 3.9 mEq/L 3.5 - 5.1 Basic Metabolic Panel 11/30/2020 [facility] Business Investor: [place] [address] [phone] Glucose 94 mg/dL 74 - 99 8 [...] mL/min >60 10 Laboratory test finding 11/30/2020 [facility] Business Investor: Dr Sameer Coppola [place] [id number] [phone] Magnesium 1.3 mg/dL Low 1.8 - 2.4 Laboratory test finding 11/30/2020 [facility] 3.1 Complete Blood Count 10/25/2020 [facility], Business Investor: [place] [address] [phone] WBC 10.3 x10*3/UL 4.1 - 10.9 RBC [...] 2.0 - 7.8 Comprehensive Chem Profile 10/25/2020 [facility] Business Investor: [place] [address] [phone] Glucose 100 mg/dL High 74 - 99 [...] Wi-Inr Inr 3.4 Complete Blood Count 09/05/2020 [facility] Business Investor: [place] [address] [phone] WBC 12.1 x10*3/UL High 4.1 - 10.9 [...] 2.0 - 7.8 Basic Metabolic Panel 09/05/2020 [facility] Business Investor: Dr Sameer Tristan [place], [place] [address] [phone] Glucose 108 mg/dL High 74 - 99 [...] mL/min >60 15 Laboratory test finding 09/05/2020 [facility] Business Investor: Dr Sameer Tristan [place], [place] [address] [phone] Magnesium 1.6 mg/dL Low 1.8 - 2.4 Laboratory test finding 08/28/2020 [facility] 3.7 Laboratory test finding 08/22/2020 [facility] 4.1 Laboratory test finding 08/14/2020 [facility] 3.9 Laboratory test finding 08/07/2020 [facility] 1.5 Complete Blood Count 08/07/2020 [facility] Business Investor: [place] [address] [phone] WBC 10.6 x10*3/UL 4.1 - 10.9 RBC [...] 2.0 - 7.8 Basic Metabolic Panel 08/07/2020 [facility] Business Investor: Dr Sameer Tristan [place], [place] [address] [phone] Glucose 103 mg/dL High 74 - 99 [...] mL/min >60 18 Coronavirus 2019 Nasopharygeal 07/28/2020 [facility] [address] [place] [address] [phone] Coronavirus 2019 Nasopharygeal ASSAY INFORMATIO <SEE N OTE> 19 Laboratory test finding 07/17/2020 [facility]-In[facility] Inr 3.2 Coronavirus 2019 Nasopharygeal 07/15/2020 [place] [address] [place] [address] [phone] Coronavirus 2019 Nasopharygeal ASSAY INFORMATIO <SEE N [...] LITTLE GFR LEFT ESRD GFR <15 ON CLIENT PROFESSIONAL 4 FULL REPORT IN LAB NOTES (eC [...] LITTLE GFR LEFT ESRD GFR <15 ON CLIENT PROFESSIONAL 8 100-125 mg/dL PRE-DIABET ES/FASTING >126 mg/dL DIABETES/FASTING 9 NOTE: RESULT VERIFIED. 10 CHRONIC KIDNEY DISEASE STAGI NG PER NKF STAGE I & II GFR >= 60 NORMAL TO MILDLY DECREASED STAGE III GFR 30-59 MODERATELY DECREASED STAGE IV GFR 15-29 SEVERELY DECREASED STAGE V GFR <15 VERY LITTLE GFR LEFT ESRD GFR <15 ON CLIENT PROFESSIONAL 11 100-125 mg/dL PRE-DIABET ES/FASTING >126 mg/dL DIABETES/FASTING 12 CHRONIC KIDNEY DISEASE STAGI NG PER NKF STAGE I & II GFR >= 60 NORMAL TO MILDLY DECREASED STAGE III GFR 30-59 MODERATELY DECREASED STAGE IV GFR 15-29 SEVERELY DECREASED STAGE V GFR <15 VERY LITTLE GFR LEFT ESRD GFR <15 ON CLIENT PROFESSIONAL 13 NOTE: RESULT VERIFIED. 14 100-125 mg/dL PRE-DIABET ES/FASTING >126 mg/dL DIABETES/FASTING 15 CHRONIC KIDNEY DISEASE STAGI NG PER NKF STAGE I & II GFR >= 60 NORMAL TO MILDLY DECREASED STAGE III GFR 30-59 MODERATELY DECREASED STAGE IV GFR 15-29 SEVERELY DECREASED STAGE V GFR <15 VERY LITTLE GFR LEFT ESRD GFR <15 ON CLIENT PROFESSIONAL 16 100-125 mg/dL PRE-DIABET ES/FASTING >126 mg/dL DIABETES/FASTING 17 NOTE: RESULT VERIFIED. 18 CHRONIC KIDNEY DISEASE STAGI NG PER NKF STAGE I & II GFR >= 60 NORMAL TO MILDLY DECREASED STAGE III GFR 30-59 MODERATELY DECREASED STAGE IV GFR 15-29 SEVERELY DECREASED STAGE V GFR <15 VERY LITTLE GFR LEFT ESRD GFR <15 ON CLIENT PROFESSIONAL 19 ASSAY INFORMATION: Real Time RT-PCR NOTE: The COVID-19 assay has been cleared by the U.S. Food and Drug Administration under the Emergency Use Authorization (EUA). [facility] are designated as high complexity laboratories by the Clinical Laboratory Improvement Amendments of 1988(CLIA) and are qualified to perform this test. Not Detected 20 ASSAY INFORMATION: Real Time RT-PCR NOTE: The COVID-19 assay has been cleared by the U.S. Food and Drug Administration under the Emergency Use Authorization (EUA). [facility] are designated as high complexity laboratories by the Clinical Laboratory Improvement Amendments of 1988(CLIA) and are qualified to perform this test. Not Detected Procedures Date Code Description Status 12/20/2020 14351 Office/Outpatient Established Lo w MDM 20-29 Min Completed 12/13/2020 78736 Office/Outpatient Established Mo d MDM 30-39 Min Completed 12/13/2020 07559 Office/Outpatient Established Mo d MDM 30-39 Min Completed 12/13/2020 98380 EKG/Interpretation & Report Comp leted 12/13/2020 53359 EKG/Interpretation & Report Comp leted 10/25/2020 00352 Office/Outpatient Established Mo d MDM 30-39 Min Completed 08/07/2020 44093 Office/Outpatient Established Mo d MDM 30-39 Min Completed 10/06/2013 [id number] Colonoscopy Completed 06/16/2006 [id number] Colonoscopy Completed 12/12/2005 [id number] Mammogram Completed Medical Devices Description No Information Available Encounters Type Date Location Provider Dx Diagnosis Office Visit 12/20/2020 7:40a [facility] 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 Aravind Tristan DO I35.0 Nonrheumatic aortic (valve) stenosis 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 I50.22 Chronic systolic (congestive ) heart failure I44.2 Atrioventricular block, comp lete I10 Essential (primary) hyperten mena Z79.01 assisted (current) use of a nticoagulants Z51.[address] ug level monitoring Office Visit 08/07/2020 8:40a [facility] 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 Balbina Crespo [facility] 01/03/2021 Z51.81 Encounter for therapeutic drug l evel monitoring [facility] 01/03/2021 Z79.01 intermediate designer (current) drug use for prophylactic purposes Balbina Crespo [facility] 01/03/2021 S75.891D Other specified inju ry of other blood vessels at hip and thigh level, right leg, subsequent encounter [facility] 12/27/2020 S75.891D Other specified inju ry of other blood vessels at hip and thigh level, right leg, subsequent encounter Balbina Crespo, [facility] 12/27/2020 S75.891D Other specified inju ry of other blood vessels at hip and thigh level, right leg, subsequent encounter [facility] 12/27/2020 Z79.01 terminal computer 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 antic oagulants Balbina Crespo, [facility] 12/27/2020 Z79.01 terminal computer 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 antic oagulants [facility] 12/27/2020 Z51.81 Encounter for therapeutic drug l evel monitoring Balbina Crespo, [facility] 12/27/2020 Z51.81 Encounter for therapeutic drug l evel monitoring [facility] 12/20/2020 Z51.81 Encounter for therapeutic drug l evel monitoring Balbina Crespo, [facility] 12/20/2020 Z51.81 Encounter for therapeutic drug l evel monitoring [facility] 12/20/2020 Z79.01 terminal computer 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 antic oagulants Balbina Crespo, [facility] 12/20/2020 Z79.01 terminal computer 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 antic oagulants [facility] 12/20/2020 S75.891D Other specified inju ry of other blood vessels at hip and thigh level, right leg, subsequent encounter Balbina Crespo, [facility] 12/20/2020 N39.0 Urinary tract infection, site no t specified Balbina Crespo, [facility] 12/20/2020 S75.891D Other specified inju ry of other blood vessels at hip and thigh level, right leg, subsequent encounter [facility] 12/20/2020 R06.02 Shortness of breath Balbina Pearl Frank [facility] 12/20/2020 E87.6 Hypokalemia Balbina Crespo, [facility] 12/20/2020 Z79.01 assisted (current) use of antic oagulants Balbina Paerl Frank, [facility] 12/20/2020 S41.111A Laceration without f oreign body of right upper arm, initial encounter Balbina Pearl Frank [facility] 12/20/2020 W10.8xxA Fall (on) (from) other stairs an d steps, initial encounter Balbina Crespo [facility] 12/20/2020 Z23 Encounter for immunization Balbina Farnk, [facility] 12/13/2020 Z51.81 Encounter for therapeutic drug l evel monitoring Balbina Crespo, [facility] 12/13/2020 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 Balbina Crespo, [facility] 12/13/2020 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 Balbina Crespo, [facility] 12/13/2020 Z79.01 assisted (current) use of antic oagulants Balbina Crespo, [facility] 12/13/2020 E83.42 Hypomagnesemia Balbina Crespo, [facility] 12/13/2020 J44.1 Chronic obstructive pulmonary disease with (acute) exacerbation Balbina Crespo [facility] 12/13/2020 Z87.891 Personal history of nicotine dep endence Balbina Crespo, [facility] 12/13/2020 Z51.81 Encounter for therapeutic drug l evel monitoring [facility] 12/13/2020 S75.891D Other specified inju ry of other blood vessels at hip and thigh level, right leg, subsequent encounter Balbina Crespo [facility] 12/13/2020 Z79.01 assisted (current) use of antic oagulants Balbina Crespo [facility] 12/13/2020 R79.1 Abnormal coagulation profile Balbina Crespo [facility] 12/13/2020 D72.829 Elevated white blood cell count, unspecified Balbina Crespo [facility] 12/13/2020 Z79.01 terminal computer 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 antic oagulants [facility] 12/13/2020 S75.891D Other specified inju ry of other blood vessels at hip and thigh level, right leg, subsequent encounter [facility] 12/13/2020 Z98.61 Coronary angioplasty status Balbina Crespo [facility] 12/13/2020 Z95.810 Presence of automatic (implantab le) cardiac defibrillator Balbina Pearl Zac [facility] 12/11/2020 R06.02 Shortness of breath Grady le JR, PA 12/04/2020 E87.6 Hypokalemia Balbina Pearl Frank [facility] 12/04/2020 E87.6 Hypokalemia Lab Schedule 11/30/2020 Z51.81 Encounter for therapeutic drug l evel monitoring Balbina Kang Zac [facility] 11/30/2020 I10 Essential (primary) hypertension Balbina Pearl Zac, [facility] 11/30/2020 Z79.01 assisted (current) use of antic oagulants Balbina Kang Zac [facility] 11/30/2020 Z51.81 Encounter for therapeutic drug l evel monitoring [facility] 11/30/2020 S75.891D Other specified inju ry of other blood vessels at hip and thigh level, right leg, subsequent encounter Balbina Crespo [facility] 11/30/2020 Z79.01 assisted (current) use of antic oagulants [facility] 11/30/2020 I10 Essential (primary) hypertension Lab Schedule 11/30/2020 S75.891D Other specified inju ry of other blood vessels at hip and thigh level, right leg, subsequent encounter [facility] 11/30/2020 E87.6 Hypokalemia Balbina Crespo, [facility] 11/30/2020 E87.6 Hypokalemia Lab Schedule 10/25/2020 Z51.81 Encounter for therapeutic drug l evel monitoring Balbina Crespo [facility] 10/25/2020 Z51.81 Encounter for therapeutic drug l evel monitoring [facility] 10/25/2020 Z79.01 terminal computer 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 antic oagulants Balbina Crespo [facility] 10/25/2020 Z79.01 assisted (current) use of antic oagulants [facility] 10/25/2020 S75.891D Other specified inju ry of other blood vessels at hip and thigh level, right leg, subsequent encounter Balbina Crespo [facility] 10/25/2020 I35.0 Nonrheumatic aortic (valve) sten osis Frederick Tristan, DO 10/25/2020 S75.891D Other specified inju ry of other blood vessels at hip and thigh level, right leg, subsequent encounter [facility] 10/25/2020 I25.10 Atherosclerotic heart disease of [place] coronary artery with Frederick Tristan, DO 10/25/2020 I50.22 Chronic systolic (congestive) he art failure Frederick Tristan, DO 10/25/2020 I44.2 Atrioventricular block, complete Frederick Tristan, DO 10/25/2020 I10 Essential (primary) hypertension Frederick Tristan, DO 10/25/2020 Z79.01 assisted (current) use of antic oagulants Frederick Tristan, DO 10/25/2020 Z51.81 Encounter for therapeutic drug l evel monitoring Frederick Tristan, DO 09/11/2020 Z51.81 Encounter for therapeutic drug l evel monitoring Balbina Crespo, [facility] 09/11/2020 Z51.81 Encounter for therapeutic drug l evel monitoring [facility] 09/11/2020 Z79.01 assisted (current) use of antic oagulants Balbina Pearl Frank, [facility] 09/11/2020 Z79.01 assisted (current) use of antic oagulants [facility] 09/11/2020 S75.891D Other specified inju ry of other blood vessels at hip and thigh level, right leg, subsequent encounter Balbina Crespo, [facility] 09/11/2020 S75.891D Other specified inju ry of other blood vessels at hip and thigh level, right leg, subsequent encounter [facility] 09/05/2020 I10 Essential (primary) hypertension Balbina Pearl Frank, [facility] 09/05/2020 Z51.81 Encounter for therapeutic drug l evel monitoring Balbina Crespo, [facility] 09/05/2020 E87.6 Hypokalemia Balbina Pearl Frank, [facility] 09/05/2020 Z51.81 Encounter for therapeutic drug l evel monitoring [facility] 09/05/2020 Z79.01 terminal computer 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 antic oagulants Balbina Pearl Frank, [facility] 09/05/2020 Z79.01 assisted (current) use of antic oagulants [facility] 09/05/2020 S75.891D Other specified inju ry of other blood vessels at hip and thigh level, right leg, subsequent encounter Balbina Pearl Frank, [facility] 09/05/2020 S75.891D Other specified inju ry of other blood vessels at hip and thigh level, right leg, subsequent encounter [facility] 08/28/2020 Z51.81 Encounter for therapeutic drug l evel monitoring Balbina Pearl Frank, [facility] 08/28/2020 Z51.81 Encounter for therapeutic drug l evel monitoring [facility] 08/28/2020 Z79.01 assisted (current) use of antic oagulants Balbina Pearl Zac, [facility] 08/28/2020 Z79.01 terminal computer 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 antic oagulants [facility] 08/28/2020 S75.891D Other specified inju ry of other blood vessels at hip and thigh level, right leg, subsequent encounter Balbina Crespo [facility] 08/28/2020 S75.891D Other specified inju ry of other blood vessels at hip and thigh level, right leg, subsequent encounter Pro[facility] 08/22/2020 Z51.81 Encounter for therapeutic drug l evel monitoring [facility] 08/22/2020 Z79.01 assisted (current) use of antic oagulants [facility] 08/22/2020 S75.891D Other specified inju ry of other blood vessels at hip and thigh level, right leg, subsequent encounter [facility] 08/14/2020 Z51.81 Encounter for therapeutic drug l evel monitoring Balbina Crespo [facility] 08/14/2020 Z51.81 Encounter for therapeutic drug l evel monitoring [facility] 08/14/2020 S75.891D Other specified inju ry of other blood vessels at hip and thigh level, right leg, subsequent encounter Balbina Crespo [facility] 08/14/2020 S75.891D Other specified inju ry of other blood vessels at hip and thigh level, right leg, subsequent encounter [facility] 08/14/2020 Z79.01 assisted (current) use of antic oagulants Balbina Crespo [facility] 08/14/2020 Z79.01 assisted (current) use of antic oagulants [facility] 08/07/2020 Z51.81 Encounter for therapeutic drug l evel monitoring Balbina Crespo [facility] 08/07/2020 I10 Essential (primary) hypertension NICKY Morris JR 08/07/2020 S75.891D Other specified inju ry of other blood vessels at hip and thigh level, right leg, subsequent encounter Balbina Crespo [facility] 08/07/2020 Z79.01 assisted (current) use of antic oagulants NICKY Morris JR 08/07/2020 E78.00 Pure hypercholesterolemia, unspe cified NICKY Morris JR 08/07/2020 Z51.81 Encounter for therapeutic drug l evel monitoring [facility] 08/07/2020 Z79.01 assisted (current) use of antic oagulants ELENA Lucas 08/07/2020 R01.1 Cardiac murmur, unspecified Robe rt NICKY Valderrama JR 08/07/2020 S75.891D Other specified inju ry of other blood vessels at hip and thigh level, right leg, subsequent encounter [facility] 08/07/2020 I73.9 Peripheral vascular disease, uns pecified NICKY Morris JR 08/07/2020 I25.10 Atherosclerotic heart disease of [place] coronary artery with NICKY Morris JR 08/07/2020 E03.9 Hypothyroidism, unspecified Robe rt NICKY Valderrama JR 08/07/2020 Z79.01 terminal computer 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 antic oagulants Protime [...] l evel monitoring ELENA Lucas 07/17/2020 Z79.01 assisted (current) use of antic oagulants [facility] 07/17/2020 Z79.01 assisted (current) use of antic oagulants ELENA Lucas 07/17/2020 S75.891D Other specified inju ry of other blood vessels at hip and thigh level, right leg, subsequent encounter [facility] 07/17/2020 S75.891D Other specified inju ry of other blood vessels at hip and thigh level, right leg, subsequent encounter ELENA Lucas Plan of Treatment Future Appointment(s):* 01/19/2021 11:00 am - Pro[facility] at [facility] * 01/05/2021 11:20 am - Nurse #2 at [facility] * 01/05/2021 10:45 am - [facility] at [facility] * 02/07/2021 8:00 am - ELENA Lucas at [facility] * 01/05/2021 11:40 am - Sameer Tristan MD at [facility] 01/03/2021 - ELENA Lucas* J43.2 [...] Entresto. 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 Remains on Clopidogrel, Atorvastatin and Betablocker. * Z79.01 intermediate designer (current) drug use for prophylactic purposes* Comments:* [...]
--- OUTSIDE RECORDS SUMMARY | 2021-01-09 15:43 | CCD | Continuity of Care Document ---
Author Author Yovany Lucas Organization Unknown Address [address] [place] [address] [address] [place] [address] Phone [phone] Care Team Providers Care Chief Medical Physicist Name Role Phone Sameer Tristan JR, MD AUTM Unavailable Nicolas Albert MD AUTM [phone] Dick Medina MD AUTM [phone] Servando Collins MD AUTM [phone] Clara Lagunas OD AUTM Unavailable Renetta Swanson MD AUTM [phone] Brenda Mcgraw AUTM [phone] Problems Active Problems Provider Date Anticoagulants Half-Way (Current) Use O nset: 01/25/1997 Injury Blood [...] every 12 hours 14caps N39.0 Balbina Crespo [facility] 12/20 - 12/20/2020 Medications Administered in Office Medication SIG Qnty Indications Ordering Provider Date Administration Of Flu Vaccine Inj ection Balbina Crespo [facility] 12/20/2020 Immunization Adminstration,1 Vaccine/Tox oid Injection Balbina Crespo [facility] 12/20/2020 Covid-19 vaccine, Unspecified Inj [...] CPT Code Status Date Vaccine Lot # [id number] Given 12/20/2020 Adacel- Tetanus Diphtheria P ertussis [id number] 31280 Given 12/20/2020 Influenza Vaccin e Quadrivalent Preser/Antibiotic Free Im Use 43548 Given 12/20/2020 Influenza Vaccin e Quadrivalent Preser/Antibiotic Free Im Use [id number] 27688 Given 12/20/2020 Adacel- Tetanus Diphtheria P ertussis 24055 Given 12/29/2019 Influenza Vaccin e Quadrivalent Preser/Antibiotic Free Im Use 01301 Given 12/28/2018 Influenza Vaccin e Quadrivalent Preser/Antibiotic Free Im Use [id number] 06664 Given 01/05/2018 Influenza Virus Vaccine, Quadrivalent (Cciiv4), Derived From 0 Given 12/02/2017 Shingrix U-Td Given 10/28/2017 Td(Adult)(Tetanus, Diphtheri a) unspecified 82881 Given 09/09/2017 Shingrix 85882 Given 01/01/2017 Influenza Vaccin e Quadrivalent Preser/Antibiotic Free Im Use 670174 Q2037 Given 01/16/2016 Fluvirin Virus Vaccine 90744 01 Q2037 Given 12/23/2014 Fluvirin Virus Vaccine 91949 01 46807 Given 04/29/2014 Prevnar 13 [id number] Q2037 Given 01/12/2014 Fluvirin Virus Vaccine 66536 01 35885 Given 01/23/2007 Pneumovax 23 46591 Given 08/20/2005 Tetanus/Diptheria(Td)Toxoids Preservative Free 29996 Given 07/26/1997 Pneumovax 23 [id number] Refused 12/20/2011 [...] Wi-Inr Inr 1.9 Complete Blood Count 12/20/2020 [facility] Territory Account Manager: [place] [address] [phone] WBC 11.6 x10*3/UL High 4.1 - 10.9 [...] 2.0 - 7.8 Basic Metabolic Panel 12/20/2020 [facility] Territory Account Manager: [place] [address] [phone] Glucose 108 mg/dL High 74 - 99 [...] Low >60 3 Laboratory test finding 12/20/2020 [facility] [address] [place] [address] [phone] Urine Culture FULL REPORT IN L <SEE NOTE> Normal 4 Ua Dipstick Only 12/20/2020 [facility] , Territory Account Manager: [place] [address] [phone] Urine Color YELLOW Yellow Urine Appearance CLOUDY Abnormal Clear Urine PH 6.0 units 5.0 - 9.0 Urine Specific [place] 1.010 1.005 - 1.030 Urine Leukocytes LARGE Abnormal Negative Urine Blood SMALL Abnormal Negative Urine Protein 1+ Abnormal Negative -Trace Urine Glucose NEGATIVE mg/dL Negative Urine Nitrite POSITIVE Abnormal Negative Urine Ketone NEGATIVE mg/dL Negative Urine Bilirubin NEGATIVE Negative Urine Urobilinogen 0.2 mg/dL 0.2 - 1.0 Laboratory test finding 12/13/2020 [facility] In[facility] 4.8 Complete Blood Count 12/13/2020 [facility], Territory Account Manager: [place] [address] [phone] WBC 14.4 x10*3/UL High 4.1 - 10.9 [...] 2.0 - 7.8 Basic Metabolic Panel 12/13/2020 [facility] Territory Account Manager: [place] [address] [phone] Glucose 120 mg/dL High 74 - 99 [...] mL/min >60 7 Laboratory test finding 12/13/2020 [facility], Territory Account Manager: Dr Sameer Coppola [facility]14 [phone] Magnesium 1.5 mg/dL Low 1.8 - 2.4 Laboratory test finding 12/04/2020 [facility] Territory Account Manager: [place] [address] [phone] Potassium 3.9 mEq/L 3.5 - 5.1 Basic Metabolic Panel 11/30/2020 [facility] Territory Account Manager: [place] [address] [phone] Glucose 94 mg/dL 74 - 99 8 [...] mL/min >60 10 Laboratory test finding 11/30/2020 [facility] Territory Account Manager: Dr Sameer Coppola [place] [id number] [phone] Magnesium 1.3 mg/dL Low 1.8 - 2.4 Laboratory test finding 11/30/2020 [facility] 3.1 Complete Blood Count 10/25/2020 [facility], Territory Account Manager: [place] [address] [phone] WBC 10.3 x10*3/UL 4.1 - 10.9 RBC [...] 2.0 - 7.8 Comprehensive Chem Profile 10/25/2020 [facility] Territory Account Manager: [place] [address] [phone] Glucose 100 mg/dL High 74 - 99 [...] Wi-Inr Inr 3.4 Complete Blood Count 09/05/2020 [facility] Territory Account Manager: [place] [address] [phone] WBC 12.1 x10*3/UL High 4.1 - 10.9 [...] 2.0 - 7.8 Basic Metabolic Panel 09/05/2020 [facility] Territory Account Manager: Dr Sameer Tristan [place], [place] [address] [phone] Glucose 108 mg/dL High 74 - 99 [...] mL/min >60 15 Laboratory test finding 09/05/2020 [facility] Territory Account Manager: Dr Sameer Tristan [place], [place] [id number] [phone] Magnesium 1.6 mg/dL Low 1.8 - 2.4 Laboratory test finding 08/28/2020 [facility] 3.7 Laboratory test finding 08/22/2020 [facility] 4.1 Laboratory test finding 08/14/2020 [facility] 3.9 Laboratory test finding 08/07/2020 [facility] 1.5 Complete Blood Count 08/07/2020 [facility] Territory Account Manager: [place] [address] [phone] WBC 10.6 x10*3/UL 4.1 - 10.9 RBC [...] 2.0 - 7.8 Basic Metabolic Panel 08/07/2020 [facility] Territory Account Manager: Dr Sameer Tristan [place], [place] [address] [phone] Glucose 103 mg/dL High 74 - 99 [...] mL/min >60 18 Coronavirus 2019 Nasopharygeal 07/28/2020 [facility] [address] [place] [address] [phone] Coronavirus 2019 Nasopharygeal ASSAY INFORMATIO <SEE N OTE> 19 Laboratory test finding 07/17/2020 [facility] 3.2 Coronavirus 2019 Nasopharygeal 07/15/2020 [facility] [address] [place] [address] [phone] Coronavirus 2019 Nasopharygeal ASSAY INFORMATIO <SEE N [...] LITTLE GFR LEFT ESRD GFR <15 ON AIRCRAFT STEEL FABRICATOR 4 FULL REPORT IN LAB NOTES (eC [...] LITTLE GFR LEFT ESRD GFR <15 ON AIRCRAFT STEEL FABRICATOR 8 100-125 mg/dL PRE-DIABET ES/FASTING >126 mg/dL DIABETES/FASTING 9 NOTE: RESULT VERIFIED. 10 CHRONIC KIDNEY DISEASE STAGI NG PER NKF STAGE I & II GFR >= 60 NORMAL TO MILDLY DECREASED STAGE III GFR 30-59 MODERATELY DECREASED STAGE IV GFR 15-29 SEVERELY DECREASED STAGE V GFR <15 VERY LITTLE GFR LEFT ESRD GFR <15 ON AIRCRAFT STEEL FABRICATOR 11 100-125 mg/dL PRE-DIABET ES/FASTING >126 mg/dL DIABETES/FASTING 12 CHRONIC KIDNEY DISEASE STAGI NG PER NKF STAGE I & II GFR >= 60 NORMAL TO MILDLY DECREASED STAGE III GFR 30-59 MODERATELY DECREASED STAGE IV GFR 15-29 SEVERELY DECREASED STAGE V GFR <15 VERY LITTLE GFR LEFT ESRD GFR <15 ON AIRCRAFT STEEL FABRICATOR 13 NOTE: RESULT VERIFIED. 14 100-125 mg/dL PRE-DIABET ES/FASTING >126 mg/dL DIABETES/FASTING 15 CHRONIC KIDNEY DISEASE STAGI NG PER NKF STAGE I & II GFR >= 60 NORMAL TO MILDLY DECREASED STAGE III GFR 30-59 MODERATELY DECREASED STAGE IV GFR 15-29 SEVERELY DECREASED STAGE V GFR <15 VERY LITTLE GFR LEFT ESRD GFR <15 ON AIRCRAFT STEEL FABRICATOR 16 100-125 mg/dL PRE-DIABET ES/FASTING >126 mg/dL DIABETES/FASTING 17 NOTE: RESULT VERIFIED. 18 CHRONIC KIDNEY DISEASE STAGI NG PER NKF STAGE I & II GFR >= 60 NORMAL TO MILDLY DECREASED STAGE III GFR 30-59 MODERATELY DECREASED STAGE IV GFR 15-29 SEVERELY DECREASED STAGE V GFR <15 VERY LITTLE GFR LEFT ESRD GFR <15 ON AIRCRAFT STEEL FABRICATOR 19 ASSAY INFORMATION: Real Time RT-PCR NOTE: The COVID-19 assay has been cleared by the U.S. Food and Drug Administration under the Emergency Use Authorization (EUA). [facility] and [facility] are designated as high complexity laboratories by the Clinical Laboratory Improvement Amendments of 1988(CLIA) and are qualified to perform this test. Not Detected 20 ASSAY INFORMATION: Real Time RT-PCR NOTE: The COVID-19 assay has been cleared by the U.S. Food and Drug Administration under the Emergency Use Authorization (EUA). [facility] and [facility] are designated as high complexity laboratories by the Clinical Laboratory Improvement Amendments of 1988(CLIA) and are qualified to perform this test. Not Detected Procedures Date Code Description Status 12/20/2020 96206 Office/Outpatient Established Lo w MDM 20-29 Min Completed 12/13/2020 04074 Office/Outpatient Established Mo d MDM 30-39 Min Completed 12/13/2020 75179 Office/Outpatient Established Mo d MDM 30-39 Min Completed 12/13/2020 52338 EKG/Interpretation & Report Comp leted 12/13/2020 75614 EKG/Interpretation & Report Comp leted 10/25/2020 97976 Office/Outpatient Established Mo d MDM 30-39 Min Completed 08/07/2020 41131 Office/Outpatient Established Mo d MDM 30-39 Min Completed 10/06/2013 [id number] Colonoscopy Completed 06/16/2006 [id number] Colonoscopy Completed 12/12/2005 [id number] Mammogram Completed Medical Devices Description No Information Available Encounters Type Date Location Provider Dx Diagnosis Office Visit 12/20/2020 7:40a [facility] 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 Balbina Crespo [facility] 01/03/2021 Z51.81 Encounter for therapeutic drug l evel monitoring [facility] 01/03/2021 Z79.01 long term care social worker (current) drug use for prophylactic purposes Balbina Crespo [facility] 01/03/2021 S75.891D Other specified inju ry of other blood vessels at hip and thigh level, right leg, subsequent encounter [facility] 12/27/2020 S75.891D Other specified inju ry of other blood vessels at hip and thigh level, right leg, subsequent encounter Balbina Crespo, [facility] 12/27/2020 S75.891D Other specified inju ry of other blood vessels at hip and thigh level, right leg, subsequent encounter [facility] 12/27/2020 Z79.01 exterminator helper termite (current) use of antic oagulants Balbina Crespo, [facility] 12/27/2020 Z79.01 exterminator helper termite (current) use of antic oagulants [facility] 12/27/2020 Z51.81 Encounter for therapeutic drug l evel monitoring Balbina Crespo, [facility] 12/27/2020 Z51.81 Encounter for therapeutic drug l evel monitoring [facility] 12/20/2020 Z51.81 Encounter for therapeutic drug l evel monitoring Balbina Crespo, [facility] 12/20/2020 Z51.81 Encounter for therapeutic drug l evel monitoring [facility] 12/20/2020 Z79.01 exterminator helper termite (current) use of antic oagulants Balbina Crespo, [facility] 12/20/2020 Z79.01 exterminator helper termite (current) use of antic oagulants [facility] 12/20/2020 S75.891D Other specified inju ry of other blood vessels at hip and thigh level, right leg, subsequent encounter Balbina Crespo, [facility] 12/20/2020 N39.0 Urinary tract infection, site no t specified Balbina Crespo, [facility] 12/20/2020 S75.891D Other specified inju ry of other blood vessels at hip and thigh level, right leg, subsequent encounter [facility] 12/20/2020 R06.02 Shortness of breath Balbina Pearl Frank [facility] 12/20/2020 E87.6 Hypokalemia Balbina Crespo, [facility] 12/20/2020 Z79.01 halfway (current) use of antic oagulants Balbina Pearl Frank, [facility] 12/20/2020 S41.111A Laceration without f oreign body of right upper arm, initial encounter Balbina Pearl Frank [facility] 12/20/2020 W10.8xxA Fall (on) (from) other stairs an d steps, initial encounter Balbina Crespo [facility] 12/20/2020 Z23 Encounter for immunization Balbina Frank, [facility] 12/13/2020 Z51.81 Encounter for therapeutic drug l evel monitoring Balbina Crespo, [facility] 12/13/2020 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 Balbina Crespo, [facility] 12/13/2020 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 Balbina Crespo, [facility] 12/13/2020 Z79.01 halfway (current) use of antic oagulants Balbina Crespo, [facility] 12/13/2020 E83.42 Hypomagnesemia Balbina Crespo, [facility] 12/13/2020 J44.1 Chronic obstructive pulmonary disease with (acute) exacerbation Balbina Crespo [facility] 12/13/2020 Z87.891 Personal history of nicotine dep endence Balbina Crespo, [facility] 12/13/2020 Z51.81 Encounter for therapeutic drug l evel monitoring [facility] 12/13/2020 S75.891D Other specified inju ry of other blood vessels at hip and thigh level, right leg, subsequent encounter Balbina Crespo [facility] 12/13/2020 Z79.01 halfway (current) use of antic oagulants Balbina Crespo [facility] 12/13/2020 R79.1 Abnormal coagulation profile Balbina Crespo [facility] 12/13/2020 D72.829 Elevated white blood cell count, unspecified Balbina Crespo [facility] 12/13/2020 Z79.01 exterminator helper termite (current) use of antic oagulants [facility] 12/13/2020 S75.891D Other specified inju ry of other blood vessels at hip and thigh level, right leg, subsequent encounter [facility] 12/13/2020 Z98.61 Coronary angioplasty status Balbina Crespo [facility] 12/13/2020 Z95.810 Presence of automatic (implantab le) cardiac defibrillator Balbina Pearl Zac [facility] 12/11/2020 R06.02 Shortness of breath Grady le JR, PA 12/04/2020 E87.6 Hypokalemia Balbina Pearl Frank [facility] 12/04/2020 E87.6 Hypokalemia Lab Schedule 11/30/2020 Z51.81 Encounter for therapeutic drug l evel monitoring Balbina Kang Zac [facility] 11/30/2020 I10 Essential (primary) hypertension Balbina Pearl Zac, [facility] 11/30/2020 Z79.01 halfway (current) use of antic oagulants Balbina Kang Zac [facility] 11/30/2020 Z51.81 Encounter for therapeutic drug l evel monitoring [facility] 11/30/2020 S75.891D Other specified inju ry of other blood vessels at hip and thigh level, right leg, subsequent encounter Balbina Crespo [facility] 11/30/2020 Z79.01 halfway (current) use of antic oagulants [facility] 11/30/2020 I10 Essential (primary) hypertension Lab Schedule 11/30/2020 S75.891D Other specified inju ry of other blood vessels at hip and thigh level, right leg, subsequent encounter [facility] 11/30/2020 E87.6 Hypokalemia Balbina Crespo, [facility] 11/30/2020 E87.6 Hypokalemia Lab Schedule 10/25/2020 Z51.81 Encounter for therapeutic drug l evel monitoring Balbina Crespo [facility] 10/25/2020 Z51.81 Encounter for therapeutic drug l evel monitoring Protime 10/25/2020 Z79.01 exterminator helper termite (current) use of antic oagulants Balbina Crespo [facility] 10/25/2020 Z79.01 halfway (current) use of antic oagulants Protime 10/25/2020 S75.891D Other specified inju ry of other blood vessels at hip and thigh level, right leg, subsequent encounter Balbina Crespo [facility] 10/25/2020 I35.0 Nonrheumatic aortic (valve) sten osis Frederick Tristan, DO 10/25/2020 S75.891D Other specified inju ry of other blood vessels at hip and thigh level, right leg, subsequent encounter [facility] 10/25/2020 I25.10 Atherosclerotic heart disease of [place] coronary artery with Frederick Tristan, DO 10/25/2020 I50.22 Chronic systolic (congestive) he art failure Frederick Tristan, DO 10/25/2020 I44.2 Atrioventricular block, complete Frederick Tristan, DO 10/25/2020 I10 Essential (primary) hypertension Frederick Tristan, DO 10/25/2020 Z79.01 halfway (current) use of antic oagulants Frederick Tristan, DO 10/25/2020 Z51.81 Encounter for therapeutic drug l evel monitoring Frederick Tristan, DO 09/11/2020 Z51.81 Encounter for therapeutic drug l evel monitoring Balbina Crespo, [facility] 09/11/2020 Z51.81 Encounter for therapeutic drug l evel monitoring [facility] 09/11/2020 Z79.01 halfway (current) use of antic oagulants Balbina Pearl Frank, [facility] 09/11/2020 Z79.01 halfway (current) use of antic oagulants [facility] 09/11/2020 S75.891D Other specified inju ry of other blood vessels at hip and thigh level, right leg, subsequent encounter Balbina Crespo, [facility] 09/11/2020 S75.891D Other specified inju ry of other blood vessels at hip and thigh level, right leg, subsequent encounter Protime 09/05/2020 I10 Essential (primary) hypertension Balbina Pearl Frank, [facility] 09/05/2020 Z51.81 Encounter for therapeutic drug l evel monitoring Balbina Crespo, [facility] 09/05/2020 E87.6 Hypokalemia Balbina Pearl Frank, [facility] 09/05/2020 Z51.81 Encounter for therapeutic drug l evel monitoring Protime 09/05/2020 Z79.01 exterminator helper termite (current) use of antic oagulants Balbina Pearl Frank, [facility] 09/05/2020 Z79.01 halfway (current) use of antic oagulants [facility] 09/05/2020 S75.891D Other specified inju ry of other blood vessels at hip and thigh level, right leg, subsequent encounter Balbina Pearl Frank, [facility] 09/05/2020 S75.891D Other specified inju ry of other blood vessels at hip and thigh level, right leg, subsequent encounter [facility] 08/28/2020 Z51.81 Encounter for therapeutic drug l evel monitoring Balbina Pearl Frank, [facility] 08/28/2020 Z51.81 Encounter for therapeutic drug l evel monitoring Protime 08/28/2020 Z79.01 halfway (current) use of antic oagulants Balbina Pearl Zac, [facility] 08/28/2020 Z79.01 exterminator helper termite (current) use of antic oagulants [facility] 08/28/2020 S75.891D Other specified inju ry of other blood vessels at hip and thigh level, right leg, subsequent encounter Balbina Crespo [facility] 08/28/2020 S75.891D Other specified inju ry of other blood vessels at hip and thigh level, right leg, subsequent encounter Protime 08/22/2020 Z51.81 Encounter for therapeutic drug l evel monitoring [facility] 08/22/2020 Z79.01 halfway (current) use of antic oagulants [facility] 08/22/2020 S75.891D Other specified inju ry of other blood vessels at hip and thigh level, right leg, subsequent encounter Protime 08/14/2020 Z51.81 Encounter for therapeutic drug l evel monitoring Balbina Crespo [facility] 08/14/2020 Z51.81 Encounter for therapeutic drug l evel monitoring [facility] 08/14/2020 S75.891D Other specified inju ry of other blood vessels at hip and thigh level, right leg, subsequent encounter Balbina Crespo [facility] 08/14/2020 S75.891D Other specified inju ry of other blood vessels at hip and thigh level, right leg, subsequent encounter Protime 08/14/2020 Z79.01 halfway (current) use of antic oagulants Balbina Crespo [facility] 08/14/2020 Z79.01 halfway (current) use of antic oagulants [facility] 08/07/2020 Z51.81 Encounter for therapeutic drug l evel monitoring Balbina Crespo [facility] 08/07/2020 I10 Essential (primary) hypertension NICKY Morris JR 08/07/2020 S75.891D Other specified inju ry of other blood vessels at hip and thigh level, right leg, subsequent encounter Balbina Crespo [facility] 08/07/2020 Z79.01 halfway (current) use of antic oagulants NICKY Morris JR 08/07/2020 E78.00 Pure hypercholesterolemia, unspe cified NICKY Morris JR 08/07/2020 Z51.81 Encounter for therapeutic drug l evel monitoring [facility] 08/07/2020 Z79.01 halfway (current) use of antic oagulants ELENA Lucas 08/07/2020 R01.1 Cardiac murmur, unspecified Robe rt NICKY Valderrama JR 08/07/2020 S75.891D Other specified inju ry of other blood vessels at hip and thigh level, right leg, subsequent encounter [facility] 08/07/2020 I73.9 Peripheral vascular disease, uns pecified NICKY Morris JR 08/07/2020 I25.10 Atherosclerotic heart disease of [place] coronary artery with NICKY Morris JR 08/07/2020 E03.9 Hypothyroidism, unspecified Robe rt NICKY Valderrama JR 08/07/2020 Z79.01 exterminator helper termite (current) use of antic oagulants Protime [...] l evel monitoring ELENA Lucas 07/17/2020 Z79.01 halfway (current) use of antic oagulants Protime 07/17/2020 Z79.01 halfway (current) use of antic oagulants ELENA Lucsa 07/17/2020 S75.891D Other specified inju ry of other blood vessels at hip and thigh level, right leg, subsequent encounter Protime 07/17/2020 S75.891D Other specified inju ry of other blood vessels at hip and thigh level, right leg, subsequent encounter ELENA Lucas Plan of Treatment Future Appointment(s):* 01/19/2021 11:00 am - [facility] at [facility] * 01/05/2021 11:20 am - Nurse #2 at [facility] * 01/05/2021 10:45 am - [facility] at [facility] * 02/07/2021 8:00 am - ELENA Lucas at [facility] * 01/05/2021 11:40 am - Sameer Tristan MD at [facility] 01/03/2021 - ELENA Lucas* J43.2 [...] Entresto. 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 Remains on Clopidogrel, Atorvastatin and Betablocker. * Z79.01 long term care social worker (current) drug use for prophylactic purposes* Comments:* [...]
--- OUTSIDE RECORDS SUMMARY | 2021-01-09 15:43 | CCD | Continuity of Care Document ---
Author Author Yovany Lucas Organization Unknown Address [address] [place] [address] [address] [place] [address] Phone [phone] Care Team Providers Care Critical Care Nurse Specialist Name Role Phone Sameer Tristan JR, MD AUTM Unavailable Nicolas Albert MD AUTM [phone] Dick Medina MD AUTM [phone] Servando Collins MD AUTM [phone] Clara Lagunas OD AUTM Unavailable Renetta Swanson MD AUTM [phone] Brenda Mcgraw AUTM [phone] Problems Active Problems Provider Date Anticoagulants Fpc (Current) Use O nset: 01/25/1997 Injury Blood [...] every 12 hours 14caps N39.0 Balbina Crespo [facility] 12/20 - 12/20/2020 Medications [...] CPT Code Status Date Vaccine Lot # [id number] Given 12/20/2020 Adacel- Tetanus Diphtheria P ertussis [id number] Given 12/20/2020 Influenza Vaccin e Quadrivalent Preser/Antibiotic Free Im Use 08020 Given 12/20/2020 Influenza Vaccin e Quadrivalent Preser/Antibiotic Free Im Use [id number] 58959 Given 12/20/2020 Adacel- Tetanus Diphtheria P ertussis 27097 Given 12/29/2019 Influenza Vaccin e Quadrivalent Preser/Antibiotic Free Im Use 29928 Given 12/28/2018 Influenza Vaccin e Quadrivalent Preser/Antibiotic Free Im Use [id number] 80882 Given 01/05/2018 Influenza Virus Vaccine, Quadrivalent ([id number]), Derived From 5 Given 12/02/2017 Shingrix U-Td Given 10/28/2017 Td(Adult)(Tetanus, Diphtheri a) unspecified 65465 Given 09/09/2017 Shingrix 96799 Given 01/01/2017 Influenza Vaccin e Quadrivalent Preser/Antibiotic Free Im Use [id number] Q2037 Given 01/16/2016 Fluvirin Virus Vaccine 63672 01 Q2037 Given 12/23/2014 Fluvirin Virus Vaccine 06137 01 97375 Given 04/29/2014 Prevnar 13 [id number] Q2037 Given 01/12/2014 Fluvirin Virus Vaccine 38303 01 59175 Given 01/23/2007 Pneumovax 23 17232 Given 08/20/2005 Tetanus/Diptheria(Td)Toxoids Preservative Free 19149 Given 07/26/1997 Pneumovax 23 [id number] Refused 12/20/2011 [...] Wi-Inr Inr 1.9 Complete Blood Count 12/20/2020 [facility] Heel Shaver: [place] [address] [phone] WBC 11.6 x10*3/UL High 4.1 - 10.9 [...] 2.0 - 7.8 Basic Metabolic Panel 12/20/2020 [facility] Heel Shaver: [place] [address] [phone] Glucose 108 mg/dL High 74 - 99 [...] Low >60 3 Laboratory test finding 12/20/2020 [facility] [address] [place] [address] [phone] Urine Culture FULL REPORT IN L <SEE NOTE> Normal 4 Ua Dipstick Only 12/20/2020 [facility] , Heel Shaver: [place] [address] [phone] Urine Color YELLOW Yellow Urine Appearance CLOUDY Abnormal Clear Urine PH 6.0 units 5.0 - 9.0 Urine Specific Parks 1.010 1.005 - 1.030 Urine Leukocytes LARGE Abnormal Negative Urine Blood SMALL Abnormal Negative Urine Protein 1+ Abnormal Negative -Trace Urine Glucose NEGATIVE mg/dL Negative Urine Nitrite POSITIVE Abnormal Negative Urine Ketone NEGATIVE mg/dL Negative Urine Bilirubin NEGATIVE Negative Urine Urobilinogen 0.2 mg/dL 0.2 - 1.0 Laboratory test finding 12/13/2020 [facility] In[facility] 4.8 Complete Blood Count 12/13/2020 [facility], Heel Shaver: [place] [address] [phone] WBC 14.4 x10*3/UL High 4.1 - 10.9 [...] 2.0 - 7.8 Basic Metabolic Panel 12/13/2020 [facility] Heel Shaver: [place] [address] [phone] Glucose 120 mg/dL High 74 - 99 [...] mL/min >60 7 Laboratory test finding 12/13/2020 [facility], Heel Shaver: [facility] Sameer [place] [facility] [phone] Magnesium 1.5 mg/dL Low 1.8 - 2.4 Laboratory test finding 12/04/2020 [facility] Heel Shaver: [place] [address] [phone] Potassium 3.9 mEq/L 3.5 - 5.1 Basic Metabolic Panel 11/30/2020 [facility] Heel Shaver: [place] [address] [phone] Glucose 94 mg/dL 74 - 99 8 [...] mL/min >60 10 Laboratory test finding 11/30/2020 [facility]el Shaver: Dr Sameer [place] [id number] [phone] Magnesium 1.3 mg/dL Low 1.8 - 2.4 Laboratory test finding 11/30/2020 [facility] 3.1 Complete Blood Count 10/25/2020 [facility], Heel Shaver: [place] [address] [phone] WBC 10.3 x10*3/UL 4.1 - 10.9 RBC [...] 2.0 - 7.8 Comprehensive Chem Profile 10/25/2020 [facility] Shaver: [place] [address] [phone] Glucose 100 mg/dL High 74 - 99 [...] Wi-Inr Inr 3.4 Complete Blood Count 09/05/2020 [facility] Heel Shaver: [place] [address] [phone] WBC 12.1 x10*3/UL High 4.1 - 10.9 [...] 2.0 - 7.8 Basic Metabolic Panel 09/05/2020 [facility] Heel Shaver: Dr Sameer Tristan [place], [place] [address] [phone] Glucose 108 mg/dL High 74 - 99 [...] mL/min >60 15 Laboratory test finding 09/05/2020 [facility] Heel Shaver: Dr Sameer Tristan [place], [place] [address] [phone] Magnesium 1.6 mg/dL Low 1.8 - 2.4 Laboratory test finding 08/28/2020 [facility] 3.7 Laboratory test finding 08/22/2020 [facility] 4.1 Laboratory test finding 08/14/2020 [facility] 3.9 Laboratory test finding 08/07/2020 [facility] 1.5 Complete Blood Count 08/07/2020 [facility] Heel Shaver: [place] [address] [phone] WBC 10.6 x10*3/UL 4.1 - 10.9 RBC [...] 2.0 - 7.8 Basic Metabolic Panel 08/07/2020 [facility] Heel Shaver: Dr Sameer Tristan [place], [place] [id number] [phone] Glucose 103 mg/dL High 74 - 99 [...] mL/min >60 18 Coronavirus 2019 Nasopharygeal 07/28/2020 [facility] [address] [place] [address] [phone] Coronavirus 2019 Nasopharygeal ASSAY INFORMATIO <SEE N OTE> 19 Laboratory test finding 07/17/2020 [facility] 3.2 Coronavirus 2019 Nasopharygeal 07/15/2020 [facility] [id number] [place] [address] [phone] Coronavirus 2019 Nasopharygeal ASSAY INFORMATIO <SEE N [...] LITTLE GFR LEFT ESRD GFR <15 ON HOLLOW HANDLE BENCH WORKER 4 FULL REPORT IN LAB NOTES (eC [...] LITTLE GFR LEFT ESRD GFR <15 ON HOLLOW HANDLE BENCH WORKER 8 100-125 mg/dL PRE-DIABET ES/FASTING >126 mg/dL DIABETES/FASTING 9 NOTE: RESULT VERIFIED. 10 CHRONIC KIDNEY DISEASE STAGI NG PER NKF STAGE I & II GFR >= 60 NORMAL TO MILDLY DECREASED STAGE III GFR 30-59 MODERATELY DECREASED STAGE IV GFR 15-29 SEVERELY DECREASED STAGE V GFR <15 VERY LITTLE GFR LEFT ESRD GFR <15 ON HOLLOW HANDLE BENCH WORKER 11 100-125 mg/dL PRE-DIABET ES/FASTING >126 mg/dL DIABETES/FASTING 12 CHRONIC KIDNEY DISEASE STAGI NG PER NKF STAGE I & II GFR >= 60 NORMAL TO MILDLY DECREASED STAGE III GFR 30-59 MODERATELY DECREASED STAGE IV GFR 15-29 SEVERELY DECREASED STAGE V GFR <15 VERY LITTLE GFR LEFT ESRD GFR <15 ON HOLLOW HANDLE BENCH WORKER 13 NOTE: RESULT VERIFIED. 14 100-125 mg/dL PRE-DIABET ES/FASTING >126 mg/dL DIABETES/FASTING 15 CHRONIC KIDNEY DISEASE STAGI NG PER NKF STAGE I & II GFR >= 60 NORMAL TO MILDLY DECREASED STAGE III GFR 30-59 MODERATELY DECREASED STAGE IV GFR 15-29 SEVERELY DECREASED STAGE V GFR <15 VERY LITTLE GFR LEFT ESRD GFR <15 ON HOLLOW HANDLE BENCH WORKER 16 100-125 mg/dL PRE-DIABET ES/FASTING >126 mg/dL DIABETES/FASTING 17 NOTE: RESULT VERIFIED. 18 CHRONIC KIDNEY DISEASE STAGI NG PER NKF STAGE I & II GFR >= 60 NORMAL TO MILDLY DECREASED STAGE III GFR 30-59 MODERATELY DECREASED STAGE IV GFR 15-29 SEVERELY DECREASED STAGE V GFR <15 VERY LITTLE GFR LEFT ESRD GFR <15 ON HOLLOW HANDLE BENCH WORKER 19 ASSAY INFORMATION: Real Time RT-PCR NOTE: The COVID-19 assay has been cleared by the U.S. Food and Drug Administration under the Emergency Use Authorization (EUA). [facility] are designated as high complexity laboratories by the Clinical Laboratory Improvement Amendments of 1988(CLIA) and are qualified to perform this test. Not Detected 20 ASSAY INFORMATION: Real Time RT-PCR NOTE: The COVID-19 assay has been cleared by the U.S. Food and Drug Administration under the Emergency Use Authorization (EUA). [facility] are designated as high complexity laboratories by the Clinical Laboratory Improvement Amendments of 1988(CLIA) and are qualified to perform this test. Not Detected Procedures Date Code Description Status 12/20/2020 31648 Office/Outpatient Established Lo w MDM 20-29 Min Completed 12/13/2020 77688 Office/Outpatient Established Mo d MDM 30-39 Min Completed 12/13/2020 02432 Office/Outpatient Established Mo d MDM 30-39 Min Completed 12/13/2020 05458 EKG/Interpretation & Report Comp leted 12/13/2020 96203 EKG/Interpretation & Report Comp leted 10/25/2020 90769 Office/Outpatient Established Mo d MDM 30-39 Min Completed 08/07/2020 55722 Office/Outpatient Established Mo d MDM 30-39 Min Completed 10/06/2013 [id number] Colonoscopy Completed 06/16/2006 [id number] Colonoscopy Completed 12/12/2005 [id number] Mammogram Completed Medical Devices Description No Information Available Encounters Type Date Location Provider Dx Diagnosis Office Visit 12/20/2020 7:40a [facility] 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 Balbina Crespo [facility] 01/03/2021 Z51.81 Encounter for therapeutic drug l evel monitoring [facility] 01/03/2021 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 Balbina Crespo [facility] 01/03/2021 S75.891D Other specified inju ry of other blood vessels at hip and thigh level, right leg, subsequent encounter [facility] 12/27/2020 S75.891D Other specified inju ry of other blood vessels at hip and thigh level, right leg, subsequent encounter Balbina Crespo, [facility] 12/27/2020 S75.891D Other specified inju ry of other blood vessels at hip and thigh level, right leg, subsequent encounter [facility] 12/27/2020 Z79.01 terminal computer 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 antic oagulants Balbina Crespo, [facility] 12/27/2020 Z79.01 terminal computer 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 antic oagulants [facility] 12/27/2020 Z51.81 Encounter for therapeutic drug l evel monitoring Balbina Crespo, [facility] 12/27/2020 Z51.81 Encounter for therapeutic drug l evel monitoring [facility] 12/20/2020 Z51.81 Encounter for therapeutic drug l evel monitoring Balbina Crespo, [facility] 12/20/2020 Z51.81 Encounter for therapeutic drug l evel monitoring [facility] 12/20/2020 Z79.01 terminal computer 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 antic oagulants Balbina Crespo, [facility] 12/20/2020 Z79.01 terminal computer operator (current) use [...] R06.02 Shortness of breath Balbina Pearl Frank [facility] 12/20/2020 E87.6 Hypokalemia Balbina Crespo, [facility] 12/20/2020 Z79.01 snf (current) use of antic oagulants Balbina Pearl Frank, [facility] 12/20/2020 S41.111A Laceration without f oreign body of right upper arm, initial encounter Balbina Pearl Frank [facility] 12/20/2020 W10.8xxA Fall (on) (from) other stairs an d steps, initial encounter Balbina Crespo [facility] 12/20/2020 Z23 Encounter for immunization Balbina Frank, [facility] 12/13/2020 Z51.81 Encounter for therapeutic drug l evel monitoring Balbina Crespo, [facility] 12/13/2020 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 Balbina Crespo, [facility] 12/13/2020 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 Balbina Crespo, [facility] 12/13/2020 Z79.01 snf (current) use of antic oagulants Balbina Crespo, [facility] 12/13/2020 E83.42 Hypomagnesemia Balbina Crespo, [facility] 12/13/2020 J44.1 Chronic obstructive pulmonary disease with (acute) exacerbation Balbina Crespo [facility] 12/13/2020 Z87.891 Personal history of nicotine dep endence Balbina Crespo, [facility] 12/13/2020 Z51.81 Encounter for therapeutic drug l evel monitoring [facility] 12/13/2020 S75.891D Other specified inju ry of other blood vessels at hip and thigh level, right leg, subsequent encounter Balbina Crespo [facility] 12/13/2020 Z79.01 snf (current) use of antic oagulants Balbina Crespo [facility] 12/13/2020 R79.1 Abnormal coagulation profile Balbina Crespo [facility] 12/13/2020 D72.829 Elevated white blood cell count, unspecified Balbina Crespo [facility] 12/13/2020 Z79.01 terminal computer 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 antic oagulants [facility] 12/13/2020 S75.891D Other specified inju ry of other blood vessels at hip and thigh level, right leg, subsequent encounter [facility] 12/13/2020 Z98.61 Coronary angioplasty status Balbina Crespo [facility] 12/13/2020 Z95.810 Presence of automatic (implantab le) cardiac defibrillator Balbina Pearl Zac [facility] 12/11/2020 R06.02 Shortness of breath Grady le JR, PA 12/04/2020 E87.6 Hypokalemia Balbina Pearl Frank [facility] 12/04/2020 E87.6 Hypokalemia Lab Schedule 11/30/2020 Z51.81 Encounter for therapeutic drug l evel monitoring Balbina Kang Zac [facility] 11/30/2020 I10 Essential (primary) hypertension Balbina Pearl Zac, [facility] 11/30/2020 Z79.01 snf (current) use of antic oagulants Balbina Kang Zac [facility] 11/30/2020 Z51.81 Encounter for therapeutic drug l evel monitoring [facility] 11/30/2020 S75.891D Other specified inju ry of other blood vessels at hip and thigh level, right leg, subsequent encounter Balbina Crespo [facility] 11/30/2020 Z79.01 snf (current) use of antic oagulants [facility] 11/30/2020 I10 Essential (primary) hypertension Lab Schedule 11/30/2020 S75.891D Other specified inju ry of other blood vessels at hip and thigh level, right leg, subsequent encounter [facility] 11/30/2020 E87.6 Hypokalemia Balbina Crespo, [facility] 11/30/2020 E87.6 Hypokalemia Lab Schedule 10/25/2020 Z51.81 Encounter for therapeutic drug l evel monitoring Balbina Crespo [facility] 10/25/2020 Z51.81 Encounter for therapeutic drug l evel monitoring [facility] 10/25/2020 Z79.01 terminal computer 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 antic oagulants Balbina Crespo [facility] 10/25/2020 Z79.01 snf (current) use of antic oagulants [facility] 10/25/2020 S75.891D Other specified inju ry of other blood vessels at hip and thigh level, right leg, subsequent encounter Balbina Crsepo [facility] 10/25/2020 I35.0 Nonrheumatic aortic (valve) sten osis Frederick Tristan, DO 10/25/2020 S75.891D Other specified inju ry of other blood vessels at hip and thigh level, right leg, subsequent encounter [facility] 10/25/2020 I25.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 with Frederick Tristan, DO 10/25/2020 I50.22 Chronic systolic (congestive) he art failure Frederick Tristan, DO 10/25/2020 I44.2 Atrioventricular block, complete Frederick Tristan, DO 10/25/2020 I10 Essential (primary) hypertension Frederick Tristan, DO 10/25/2020 Z79.01 snf (current) use of antic oagulants Frederick Tristan, DO 10/25/2020 Z51.81 Encounter for therapeutic drug l evel monitoring Frederick Tristan, DO 09/11/2020 Z51.81 Encounter for therapeutic drug l evel monitoring Balbina Crespo, [facility] 09/11/2020 Z51.81 Encounter for therapeutic drug l evel monitoring [facility] 09/11/2020 Z79.01 snf (current) use of antic oagulants Balbina Pearl Frank, [facility] 09/11/2020 Z79.01 snf (current) use of antic oagulants [facility] 09/11/2020 S75.891D Other specified inju ry of other blood vessels at hip and thigh level, right leg, subsequent encounter Balbina Crespo, [facility] 09/11/2020 S75.891D Other specified inju ry of other blood vessels at hip and thigh level, right leg, subsequent encounter [facility] 09/05/2020 I10 Essential (primary) hypertension Balbina Pearl Frank, [facility] 09/05/2020 Z51.81 Encounter for therapeutic drug l evel monitoring Balbina Crespo, [facility] 09/05/2020 E87.6 Hypokalemia Balbina Pearl Frank, [facility] 09/05/2020 Z51.81 Encounter for therapeutic drug l evel monitoring [facility] 09/05/2020 Z79.01 terminal computer 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 antic oagulants Balbina Pearl Frank, [facility] 09/05/2020 Z79.01 snf (current) use of antic oagulants [facility] 09/05/2020 S75.891D Other specified inju ry of other blood vessels at hip and thigh level, right leg, subsequent encounter Balbina Pearl Frank, [facility] 09/05/2020 S75.891D Other specified inju ry of other blood vessels at hip and thigh level, right leg, subsequent encounter [facility] 08/28/2020 Z51.81 Encounter for therapeutic drug l evel monitoring Balbina Pearl Frank, [facility] 08/28/2020 Z51.81 Encounter for therapeutic drug l evel monitoring [facility] 08/28/2020 Z79.01 snf (current) use of antic oagulants Balbina Pearl Zac, [facility] 08/28/2020 Z79.01 terminal computer 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 antic oagulants [facility] 08/28/2020 S75.891D Other specified inju ry of other blood vessels at hip and thigh level, right leg, subsequent encounter Balbina Crespo [facility] 08/28/2020 S75.891D Other specified inju ry of other blood vessels at hip and thigh level, right leg, subsequent encounter [facility] 08/22/2020 Z51.81 Encounter for therapeutic drug l evel monitoring [facility] 08/22/2020 Z79.01 snf (current) use of antic oagulants [facility] 08/22/2020 S75.891D Other specified inju ry of other blood vessels at hip and thigh level, right leg, subsequent encounter [facility] 08/14/2020 Z51.81 Encounter for therapeutic drug l evel monitoring Balbina Crespo [facility] 08/14/2020 Z51.81 Encounter for therapeutic drug l evel [facility] S75.891D Other specified inju ry of other blood vessels at hip and thigh level, right leg, subsequent encounter Balbina Crespo [facility] 08/14/2020 S75.891D Other specified inju ry of other blood vessels at hip and thigh level, right leg, subsequent encounter [facility] 08/14/2020 Z79.01 snf (current) use of antic oagulants Balbina Crespo [facility] 08/14/2020 Z79.01 snf (current) use of antic oagulants [facility] 08/07/2020 Z51.81 Encounter for therapeutic drug l evel monitoring Balbina Crespo [facility] 08/07/2020 I10 Essential (primary) hypertension NICKY Morris JR 08/07/2020 S75.891D Other specified inju ry of other blood vessels at hip and thigh level, right leg, subsequent encounter Balbina Crespo [facility] 08/07/2020 Z79.01 snf (current) use of antic oagulants NICKY Morris JR 08/07/2020 E78.00 Pure hypercholesterolemia, unspe cified NICKY Morris JR 08/07/2020 Z51.81 Encounter for therapeutic drug l evel monitoring [facility] 08/07/2020 Z79.01 snf (current) use of antic oagulants ELENA Lucas 08/07/2020 R01.1 Cardiac murmur, unspecified Robe rt NICKY Valderrama JR 08/07/2020 S75.891D Other specified inju ry of other blood vessels at hip and thigh level, right leg, subsequent encounter [facility] 08/07/2020 I73.9 Peripheral vascular disease, uns pecified NICKY Morris JR 08/07/2020 I25.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 * 01/05/2021 11:20 am - Nurse #2 at [facility] * 01/05/2021 10:45 am - [facility] at [facility] * 02/07/2021 8:00 am - ELENA Lucas at [facility] * 01/05/2021 11:40 am - Sameer Tristan MD at [facility] 01/03/2021 - ELENA Lucas* J43.2 [...] Entresto. 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 Remains on Clopidogrel, Atorvastatin and Betablocker. 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
--- OUTSIDE RECORDS SUMMARY | 2021-01-09 15:44 | CCD | Continuity of Care Document ---
Author Author Yovany Pena Organization Unknown Address [address] [place] [address] Phone [phone] Care Team Providers Care Maintenance Team Leader Name Role Phone Sameer Tristan JR, MD AUTM Unavailable Nicolas Albert MD AUTM [phone] Dick Medina MD AUTM [phone] Servando Collins MD AUTM [phone] Clara Lagunas OD AUTM Unavailable Renetta Swanson MD AUTM [phone] Brenda Mcgraw AUTM [phone] Problems Active Problems Provider Date Anticoagulants Assisted (Current) Use O nset: 01/25/1997 Injury Blood Vessel(S) Lower Extrem Other Specified Onset: 01/25/1997 Coronary arteriosclerosis Sameer Tristan MD Onset: 10/21 Chronic obstructive lung disease Sameer Tristan MD Onset : 10/21/2010 Gastroesophageal reflux disease Sameer Tristan MD Onset: 10/21/2010 Garza's esophagus Sameer Tristan MD Onset: 10/21/2010 Old myocardial infarction ELENA Lucas Onset: 011 Hematuria syndrome ELENA Lucas Onset: 10/21/2010 Benign essential hypertension LEENA Lucas Onset: Pure hypercholesterolemia ELENA Lucas Onset: [...] every 12 hours 14caps N39.0 Balbina Crespo [facility] 12/20 - 12/20/2020 Medications Administered in Office Medication SIG Qnty Indications Ordering Provider Date Administration Of Flu Vaccine Inj ection Balbina Crespo [facility] 12/20/2020 Immunization Adminstration,1 Vaccine/Tox oid Injection Balbina Crespo [facility] 12/20/2020 Covid-19 vaccine, Unspecified Inj ection [...] CPT Code Status Date Vaccine Lot # [id number] Given 12/20/2020 Adacel- Tetanus Diphtheria P ertussis [id number] 30357 Given 12/20/2020 Influenza Vaccin e Quadrivalent Preser/Antibiotic Free Im Use 08370 Given 12/20/2020 Influenza Vaccin e Quadrivalent Preser/Antibiotic Free Im Use [id number] 17574 Given 12/20/2020 Adacel- Tetanus Diphtheria P ertussis 55881 Given 12/29/2019 Influenza Vaccin e Quadrivalent Preser/Antibiotic Free Im Use 60046 Given 12/28/2018 Influenza Vaccin e Quadrivalent Preser/Antibiotic Free Im Use [id number] 19676 Given 01/05/2018 Influenza Virus Vaccine, Quadrivalent (Cciiv4), Derived From 4 Given 12/02/2017 Shingrix U-Td Given 10/28/2017 Td(Adult)(Tetanus, Diphtheri a) unspecified 43831 Given 09/09/2017 Shingrix 29739 Given 01/01/2017 Influenza Vaccin e Quadrivalent Preser/Antibiotic Free Im Use [id number] Q2037 Given 01/16/2016 Fluvirin Virus Vaccine 00561 01 Q2037 Given 12/23/2014 Fluvirin Virus Vaccine 40065 01 12917 Given 04/29/2014 Prevnar 13 [id number] Q2037 Given 01/12/2014 Fluvirin Virus Vaccine 55544 01 63446 Given 01/23/2007 Pneumovax 23 53160 Given 08/20/2005 Tetanus/Diptheria(Td)Toxoids Preservative Free 31615 Given 07/26/1997 Pneumovax 23 [id number] Refused 12/20/2011 [...] Wi-Inr Inr 1.9 Complete Blood Count 12/20/2020 [facility] Blood Bank Technician: [place] [address] [phone] WBC 11.6 x10*3/UL High 4.1 - 10.9 [...] 2.0 - 7.8 Basic Metabolic Panel 12/20/2020 [facility] Blood Bank Technician: [place] [address] [phone] Glucose 108 mg/dL High 74 - 99 [...] Low >60 3 Laboratory test finding 12/20/2020 [facility] [address] [place] [address] [phone] Urine Culture FULL REPORT IN L <SEE NOTE> Normal 4 Ua Dipstick Only 12/20/2020 [facility] , Blood Bank Technician: [place] [address] [phone] Urine Color YELLOW Yellow Urine Appearance CLOUDY Abnormal Clear Urine PH 6.0 units 5.0 - 9.0 Urine Specific [place] 1.010 1.005 - 1.030 Urine Leukocytes LARGE Abnormal Negative Urine Blood SMALL Abnormal Negative Urine Protein 1+ Abnormal Negative -Trace Urine Glucose NEGATIVE mg/dL Negative Urine Nitrite POSITIVE Abnormal Negative Urine Ketone NEGATIVE mg/dL Negative Urine Bilirubin NEGATIVE Negative Urine Urobilinogen 0.2 mg/dL 0.2 - 1.0 Laboratory test finding 12/13/2020 Wi-In[facility] In[facility] 4.8 Complete Blood Count 12/13/2020 [facility] Blood Bank Technician: [place] [address] [phone] WBC 14.4 x10*3/UL High 4.1 - 10.9 [...] 2.0 - 7.8 Basic Metabolic Panel 12/13/2020 [facility] Blood Bank Technician: [place] [address] [phone] Glucose 120 mg/dL High 74 - 99 [...] mL/min >60 7 Laboratory test finding 12/13/2020 [facility], Blood Bank Technician: Dr Sameer Coppola [place] [id number] [phone] Magnesium 1.5 mg/dL Low 1.8 - 2.4 Laboratory test finding 12/04/2020 [facility] Blood Bank Technician: [place] [address] [phone] Potassium 3.9 mEq/L 3.5 - 5.1 Basic Metabolic Panel 11/30/2020 [facility] Blood Bank Technician: [place] [address] [phone] Glucose 94 mg/dL 74 - 99 8 [...] mL/min >60 10 Laboratory test finding 11/30/2020 [facility], Blood Bank Technician: Dr Sameer Coppola [place] [id number] [phone] Magnesium 1.3 mg/dL Low 1.8 - 2.4 Laboratory test finding 11/30/2020 [facility] 3.1 Complete Blood Count 10/25/2020 [facility], Blood Bank Technician: [place] [address] [phone] WBC 10.3 x10*3/UL 4.1 - 10.9 RBC [...] 2.0 - 7.8 Comprehensive Chem Profile 10/25/2020 [facility] Blood Bank Technician: [place] [address] [phone] Glucose 100 mg/dL High 74 - 99 [...] Wi-Inr Inr 3.4 Complete Blood Count 09/05/2020 [facility] Blood Bank Technician: [place] [address] [phone] WBC 12.1 x10*3/UL High 4.1 - 10.9 [...] 2.0 - 7.8 Basic Metabolic Panel 09/05/2020 [facility] Blood Bank Technician: [place] [address] [phone] Glucose 108 mg/dL High 74 - 99 [...] mL/min >60 15 Laboratory test finding 09/05/2020 [facility] Blood Bank Technician: Dr Sameer Tristan [place], [place] [id number] [phone] Magnesium 1.6 mg/dL Low 1.8 - 2.4 Laboratory test finding 08/28/2020 [facility] 3.7 Laboratory test finding 08/22/2020 [facility] 4.1 Laboratory test finding 08/14/2020 [facility] 3.9 Laboratory test finding 08/07/2020 [facility] 1.5 Complete Blood Count 08/07/2020 [facility] Blood Bank Technician: [place] [address] [phone] WBC 10.6 x10*3/UL 4.1 - 10.9 RBC [...] 2.0 - 7.8 Basic Metabolic Panel 08/07/2020 [facility] Blood Bank Technician: Dr Sameer Tristan [place], [place] [id number] [phone] Glucose 103 mg/dL High 74 - 99 [...] mL/min >60 18 Coronavirus 2019 Nasopharygeal 07/28/2020 [facility] [address] [place] [address] [phone] Coronavirus 2019 Nasopharygeal ASSAY INFORMATIO <SEE N OTE> 19 Laboratory test finding 07/17/2020 [facility]In[facility] In[facility] 3.2 Coronavirus 2019 Nasopharygeal 07/15/2020 [facility] [address] [place] [address] [phone] Coronavirus 2019 Nasopharygeal ASSAY INFORMATIO <SEE N [...] LITTLE GFR LEFT ESRD GFR <15 ON MANAGER OF INFORMATION 4 FULL REPORT IN LAB NOTES (eC [...] LITTLE GFR LEFT ESRD GFR <15 ON MANAGER OF INFORMATION 8 100-125 mg/dL PRE-DIABET ES/FASTING >126 mg/dL DIABETES/FASTING 9 NOTE: RESULT VERIFIED. 10 CHRONIC KIDNEY DISEASE STAGI NG PER NKF STAGE I & II GFR >= 60 NORMAL TO MILDLY DECREASED STAGE III GFR 30-59 MODERATELY DECREASED STAGE IV GFR 15-29 SEVERELY DECREASED STAGE V GFR <15 VERY LITTLE GFR LEFT ESRD GFR <15 ON MANAGER OF INFORMATION 11 100-125 mg/dL PRE-DIABET ES/FASTING >126 mg/dL DIABETES/FASTING 12 CHRONIC KIDNEY DISEASE STAGI NG PER NKF STAGE I & II GFR >= 60 NORMAL TO MILDLY DECREASED STAGE III GFR 30-59 MODERATELY DECREASED STAGE IV GFR 15-29 SEVERELY DECREASED STAGE V GFR <15 VERY LITTLE GFR LEFT ESRD GFR <15 ON MANAGER OF INFORMATION 13 NOTE: RESULT VERIFIED. 14 100-125 mg/dL PRE-DIABET ES/FASTING >126 mg/dL DIABETES/FASTING 15 CHRONIC KIDNEY DISEASE STAGI NG PER NKF STAGE I & II GFR >= 60 NORMAL TO MILDLY DECREASED STAGE III GFR 30-59 MODERATELY DECREASED STAGE IV GFR 15-29 SEVERELY DECREASED STAGE V GFR <15 VERY LITTLE GFR LEFT ESRD GFR <15 ON MANAGER OF INFORMATION 16 100-125 mg/dL PRE-DIABET ES/FASTING >126 mg/dL DIABETES/FASTING 17 NOTE: RESULT VERIFIED. 18 CHRONIC KIDNEY DISEASE STAGI NG PER NKF STAGE I & II GFR >= 60 NORMAL TO MILDLY DECREASED STAGE III GFR 30-59 MODERATELY DECREASED STAGE IV GFR 15-29 SEVERELY DECREASED STAGE V GFR <15 VERY LITTLE GFR LEFT ESRD GFR <15 ON MANAGER OF INFORMATION 19 ASSAY INFORMATION: Real Time RT-PCR NOTE: The COVID-19 assay has been cleared by the U.S. Food and Drug Administration under the Emergency Use Authorization (EUA). [facility] and [facility] are designated as high complexity laboratories by the Clinical Laboratory Improvement Amendments of 1988(CLIA) and are qualified to perform this test. Not Detected 20 ASSAY INFORMATION: Real Time RT-PCR NOTE: The COVID-19 assay has been cleared by the U.S. Food and Drug Administration under the Emergency Use Authorization (EUA). [facility] and [facility] are designated as high complexity laboratories by the Clinical Laboratory Improvement Amendments of 1988(CLIA) and are qualified to perform this test. Not Detected Procedures Date Code Description Status 12/20/2020 95929 Office/Outpatient Established Lo w MDM 20-29 Min Completed 12/13/2020 96317 Office/Outpatient Established Mo d MDM 30-39 Min Completed 12/13/2020 85569 Office/Outpatient Established Mo d MDM 30-39 Min Completed 12/13/2020 83206 EKG/Interpretation & Report Comp leted 12/13/2020 57141 EKG/Interpretation & Report Comp leted 10/25/2020 85509 Office/Outpatient Established Mo d MDM 30-39 Min Completed 08/07/2020 07983 Office/Outpatient Established Mo d MDM 30-39 Min Completed 10/06/2013 [id number] Colonoscopy Completed 06/16/2006 [id number] Colonoscopy Completed 12/12/2005 [id number] Mammogram Completed Medical Devices Description No Information Available Encounters Type Date Location Provider Dx Diagnosis Office Visit 12/20/2020 7:40a [facility] 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 Aravind Tristan DO I35.0 Nonrheumatic aortic (valve) stenosis 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 I50.22 Chronic systolic (congestive ) heart failure I44.2 Atrioventricular block, comp lete I10 Essential (primary) hyperten mena Z79.01 group home (current) use of a nticoagulants Z51.[address] ug level monitoring Office Visit 08/07/2020 8:40a [facility] Prosper sarah Whitley JR, PA I10 Essential (primary) hyperten mena Z79.01 group home (current) use of a nticoagulants E78.00 [...] Provider 01/03/2021 J43.2 Centrilobular emphysema Balbina Caballero, [facility] 01/03/2021 F41.9 Anxiety disorder, unspecified An n Pearl Frank [facility] 01/03/2021 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 Balbina Crespo [facility] 01/03/2021 I25.119 Atherosclerotic hear t disease of [place] coronary artery with unspecified angina pectoris Balbina Crespo [facility] 01/03/2021 Z51.81 Encounter for therapeutic drug l evel monitoring Protime 01/03/2021 Z79.01 half-way (current) drug use for prophylactic purposes Balbina Crespo [facility] 01/03/2021 S75.891D Other specified inju ry of other blood vessels at hip and thigh level, right leg, subsequent encounter Protime 12/27/2020 S75.891D Other specified inju ry of other blood vessels at hip and thigh level, right leg, subsequent encounter Balbina Crespo, [facility] 12/27/2020 S75.891D Other specified inju ry of other blood vessels at hip and thigh level, right leg, subsequent encounter Protime 12/27/2020 Z79.01 group home (current) use of antic oagulants Balbina Crespo, [facility] 12/27/2020 Z79.01 extermination supervisor (current) use of antic oagulants Protime 12/27/2020 Z51.81 Encounter for therapeutic drug l evel monitoring Balbina Crespo, [facility] 12/27/2020 Z51.81 Encounter for therapeutic drug l evel monitoring Protime 12/20/2020 Z51.81 Encounter for therapeutic drug l evel monitoring Balbina Crespo, [facility] 12/20/2020 Z51.81 Encounter for therapeutic drug l evel monitoring Protime 12/20/2020 Z79.01 extermination supervisor (current) use of antic oagulants Balbina Crespo, [facility] 12/20/2020 Z79.01 extermination supervisor (current) use of antic oagulants Protime 12/20/2020 S75.891D Other specified inju ry of other blood vessels at hip and thigh level, right leg, subsequent encounter Balbina Crespo, [facility] 12/20/2020 N39.0 Urinary tract infection, site no t specified Balbina Crespo, [facility] 12/20/2020 S75.891D Other specified inju ry of other blood vessels at hip and thigh level, right leg, subsequent encounter Protime 12/20/2020 R06.02 Shortness of breath Balbina Pearl Frank, [facility] 12/20/2020 E87.6 Hypokalemia Balbina Crespo, [facility] 12/20/2020 Z79.01 group home (current) use of antic oagulants Balbina Pearl Frank, [facility] 12/20/2020 S41.111A Laceration without f oreign body of right upper arm, initial encounter Balbina Pearl Frank, [facility] 12/20/2020 W10.8xxA Fall (on) (from) other stairs an d steps, initial encounter Balbina Crespo [facility] 12/20/2020 Z23 Encounter for immunization Balbina Frank, [facility] 12/13/2020 Z51.81 Encounter for therapeutic drug l evel monitoring Balbina Crespo, [facility] 12/13/2020 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 Balbina Crespo, [facility] 12/13/2020 I25.119 Atherosclerotic hear t disease of [place] coronary artery with unspecified angina pectoris Balbina Crespo, [facility] 12/13/2020 Z79.01 extermination supervisor (current) use of antic oagulants Balbina Crespo, [facility] 12/13/2020 E83.42 Hypomagnesemia Balbina Crespo, [facility] 12/13/2020 J44.1 Chronic obstructive pulmonary disease with (acute) exacerbation Balbina Crespo [facility] 12/13/2020 Z87.891 Personal history of nicotine dep endence Balbina Crespo, [facility] 12/13/2020 Z51.81 Encounter for therapeutic drug l evel monitoring Protime 12/13/2020 S75.891D Other specified inju ry of other blood vessels at hip and thigh level, right leg, subsequent encounter Balbina Crespo [facility] 12/13/2020 Z79.01 group home (current) use of antic oagulants Balbina Crespo [facility] 12/13/2020 R79.1 Abnormal coagulation profile Balbina Crespo [facility] 12/13/2020 D72.829 Elevated white blood cell count, unspecified Balbina Crespo, [facility] 12/13/2020 Z79.01 group home (current) use of antic oagulants Protime 12/13/2020 S75.891D Other specified inju ry of other blood vessels at hip and thigh level, right leg, subsequent encounter Protime 12/13/2020 Z98.61 Coronary angioplasty status Balbina Crespo [facility] 12/13/2020 Z95.810 Presence of automatic (implantab le) cardiac defibrillator Balbina Crespo [facility] 12/11/2020 R06.02 Shortness of breath Grady le JR, PA 12/04/2020 E87.6 Hypokalemia Balbina Pearl Frank [facility] 12/04/2020 E87.6 Hypokalemia Lab Schedule 11/30/2020 Z51.81 Encounter for therapeutic drug l evel monitoring Balbina Kang Zac [facility] 11/30/2020 I10 Essential (primary) hypertension Balbina Pearl Zac, [facility] 11/30/2020 Z79.01 extermination supervisor (current) use of antic oagulants Balbina Kang Zac [facility] 11/30/2020 Z51.81 Encounter for therapeutic drug l evel monitoring Protime 11/30/2020 S75.891D Other specified inju ry of other blood vessels at hip and thigh level, right leg, subsequent encounter Balbina Crespo [facility] 11/30/2020 Z79.01 extermination supervisor (current) use of antic oagulants Protime 11/30/2020 I10 Essential (primary) hypertension Lab Schedule 11/30/2020 S75.891D Other specified inju ry of other blood vessels at hip and thigh level, right leg, subsequent encounter Protime 11/30/2020 E87.6 Hypokalemia Balbina Crespo [facility] 11/30/2020 E87.6 Hypokalemia Lab Schedule 10/25/2020 Z51.81 Encounter for therapeutic drug l evel monitoring Balbina Crespo [facility] 10/25/2020 Z51.81 Encounter for therapeutic drug l evel monitoring Protime 10/25/2020 Z79.01 extermination supervisor (current) use of antic oagulants Balbina Crespo [facility] 10/25/2020 Z79.01 group home (current) use of antic oagulants Protime 10/25/2020 S75.891D Other specified inju ry of other blood vessels at hip and thigh level, right leg, subsequent encounter Balbina Crespo [facility] 10/25/2020 I35.0 Nonrheumatic aortic (valve) sten osis Frederick Tristan, DO 10/25/2020 S75.891D Other specified inju ry of other blood vessels at hip and thigh level, right leg, subsequent encounter Protime 10/25/2020 I25.10 Atherosclerotic heart disease of [place] coronary artery with Frederick Tristan, DO 10/25/2020 I50.22 Chronic systolic (congestive) he art failure Frederick Tristan, DO 10/25/2020 I44.2 Atrioventricular block, complete Frederick Tristan, DO 10/25/2020 I10 Essential (primary) hypertension Frederick Tristan, DO 10/25/2020 Z79.01 extermination supervisor (current) use of antic oagulants Frederick Tristan, DO 10/25/2020 Z51.81 Encounter for therapeutic drug l evel monitoring Frederick Valenzuelalogg, DO 09/11/2020 Z51.81 Encounter for therapeutic drug l evel monitoring Balbina Crespo, [facility] 09/11/2020 Z51.81 Encounter for therapeutic drug l evel monitoring Protime 09/11/2020 Z79.01 group home (current) use of antic oagulants Balbina Pearl Frank, [facility] 09/11/2020 Z79.01 group home (current) use of antic oagulants Protime 09/11/2020 S75.891D Other specified inju ry of other blood vessels at hip and thigh level, right leg, subsequent encounter Balbina Pearl Frank, [facility] 09/11/2020 S75.891D Other specified inju ry of other blood vessels at hip and thigh level, right leg, subsequent encounter Protime 09/05/2020 I10 Essential (primary) hypertension Balbina Pearl Frank, [facility] 09/05/2020 Z51.81 Encounter for therapeutic drug l evel monitoring Balbina Crespo, [facility] 09/05/2020 E87.6 Hypokalemia Balbina Pearl Frank, [facility] 09/05/2020 Z51.81 Encounter for therapeutic drug l evel monitoring Protime 09/05/2020 Z79.01 group home (current) use of antic oagulants Balbina Pearl Frank, [facility] 09/05/2020 Z79.01 extermination supervisor (current) use of antic oagulants Protime 09/05/2020 S75.891D Other specified inju ry of other blood vessels at hip and thigh level, right leg, subsequent encounter Balbina Pearl Frank [facility] 09/05/2020 S75.891D Other specified inju ry of other blood vessels at hip and thigh level, right leg, subsequent encounter Protime 08/28/2020 Z51.81 Encounter for therapeutic drug l evel monitoring Balbina Pearl Frank, [facility] 08/28/2020 Z51.81 Encounter for therapeutic drug l evel monitoring Protime 08/28/2020 Z79.01 extermination supervisor (current) use of antic oagulants Balbina Crespo, [facility] 08/28/2020 Z79.01 extermination supervisor (current) use of antic oagulants Protime 08/28/2020 S75.891D Other specified inju ry of other blood vessels at hip and thigh level, right leg, subsequent encounter Balbina Crespo [facility] 08/28/2020 S75.891D Other specified inju ry of other blood vessels at hip and thigh level, right leg, subsequent encounter Protime 08/22/2020 Z51.81 Encounter for therapeutic drug l evel monitoring Protime 08/22/2020 Z79.01 group home (current) use of antic oagulants Protime 08/22/2020 S75.891D Other specified inju ry of other blood vessels at hip and thigh level, right leg, subsequent encounter Protime 08/14/2020 Z51.81 Encounter for therapeutic drug l evel monitoring Balbina Crespo [facility] 08/14/2020 Z51.81 Encounter for therapeutic drug l evel [facility] 08[facility]14[facility] S75.891D Other specified inju ry of other blood vessels at hip and thigh level, right leg, subsequent encounter Balbina Crespo [facility] 08/14/2020 S75.891D Other specified inju ry of other blood vessels at hip and thigh level, right leg, subsequent encounter Protime 08/14/2020 Z79.01 group home (current) use of antic oagulants Balbina Crespo [facility] 08/14/2020 Z79.01 extermination supervisor (current) use of antic oagulants Protime 08/07/2020 Z51.81 Encounter for therapeutic drug l evel monitoring Balbina Crespo [facility] 08/07/2020 I10 Essential (primary) hypertension NICKY Morris JR 08/07/2020 S75.891D Other specified inju ry of other blood vessels at hip and thigh level, right leg, subsequent encounter Balbina Crespo [facility] 08/07/2020 Z79.01 extermination supervisor (current) use of antic oagulants NICKY Morris JR 08/07/2020 E78.00 Pure hypercholesterolemia, unspe cified NICKY Morris JR 08/07/2020 Z51.81 Encounter for therapeutic drug l evel monitoring Protime 08/07/2020 Z79.01 group home (current) use of antic oagulants ELENA Lucas 08/07/2020 R01.1 Cardiac murmur, unspecified Robe rt NICKY Valderrama JR 08/07/2020 S75.891D Other specified inju ry of other blood vessels at hip and thigh level, right leg, subsequent encounter Protime 08/07/2020 I73.9 Peripheral vascular disease, uns pecified NICKY Morris JR 08/07/2020 I25.10 Atherosclerotic heart disease of [place] coronary artery with NICKY Morris JR 08/07/2020 E03.9 Hypothyroidism, unspecified Robe rt NICKY Valderrama JR 08/07/2020 Z79.01 group home (current) use of antic oagulants Protime [...] l evel monitoring ELENA Lucas 07/17/2020 Z79.01 group home (current) use of antic oagulants Protime 07/17/2020 Z79.01 extermination supervisor (current) use of antic oagulants ELENA Lucas 07/17/2020 S75.891D Other specified inju ry of other blood vessels at hip and thigh level, right leg, subsequent encounter Protime 07/17/2020 S75.891D Other specified inju ry of other blood vessels at hip and thigh level, right leg, subsequent encounter ELENA Lucas Plan of Treatment Future Appointment(s):* 01/19/2021 11:00 am - [facility] at [facility] * 01/05/2021 11:20 am - Nurse #2 at [facility] * 01/05/2021 10:45 am - [facility] at [facility] * 02/07/2021 8:00 am - ELENA Lucas at [facility] * 01/05/2021 11:40 am - Sameer Tristan MD at [facility] 01/03/2021 - ELENA Lucas* J43.2 [...] Entresto. * I25.119 Atherosclerotic heart disease of [place] coronary artery with unspecified angina pectoris* Comments:* history of ROB. Remains on Clopidogrel, Atorvastatin and Betablocker. * Z79.01 half-way (current) drug use for prophylactic purposes* Comments:* [...]
--- OUTSIDE RECORDS SUMMARY | 2021-01-09 15:44 | CCD | Continuity of Care Document ---
Author Author Yovany Lucas Organization Unknown Address [address] [place] [address] [address] [place] [address] Phone [phone] Care Team Providers Care Gameroom Technician Name Role Phone Sameer Tristan JR, MD AUTM Unavailable Nicolas Albert MD AUTM [phone] Dick Medina MD AUTM [phone] Servando Collins MD AUTM [phone] Clara Lagunas OD AUTM Unavailable Renetta Swanson MD AUTM [phone] Brenda Mcgraw AUTM [phone] Problems Active Problems Provider Date Anticoagulants Prison (Current) Use O nset: 01/25/1997 Injury Blood [...] every 12 hours 14caps N39.[address] Balbina [address]o [facility] 12/20 - 12/20/2020 Medications Administered in Office Medication SIG Qnty Indications Ordering Provider Date Administration Of Flu Vaccine Inj ection Balbina Crespo [facility] 12/20/2020 Immunization Adminstration,1 Vaccine/Tox oid Injection Balbina Crespo [facility] 12/20/2020 Covid-19 vaccine, Unspecified Inj ection [...] CPT Code Status Date Vaccine Lot # 31083 Given 12/20/2020 Adacel- Tetanus Diphtheria P ertussis [id number] 55471 Given 12/20/2020 Influenza Vaccin e Quadrivalent Preser/Antibiotic Free Im Use 84656 Given 12/20/2020 Influenza Vaccin e Quadrivalent Preser/Antibiotic Free Im Use [id number] 21360 Given 12/20/2020 Adacel- Tetanus Diphtheria P ertussis 38684 Given 12/29/2019 Influenza Vaccin e Quadrivalent Preser/Antibiotic Free Im Use 51344 Given 12/28/2018 Influenza Vaccin e Quadrivalent Preser/Antibiotic Free Im Use [id number] 53806 Given 01/05/2018 Influenza Virus Vaccine, Quadrivalent ([id number]), Derived From 8 Given 12/02/2017 Shingrix U-Td Given 10/28/2017 Td(Adult)(Tetanus, Diphtheri a) unspecified 10003 Given 09/09/2017 Shingrix 60415 Given 01/01/2017 Influenza Vaccin e Quadrivalent Preser/Antibiotic Free Im Use [id number] Q2037 Given 01/16/2016 Fluvirin Virus Vaccine 55149 01 Q2037 Given 12/23/2014 Fluvirin Virus Vaccine 32777 01 67985 Given 04/29/2014 Prevnar 13 [id number] Q2037 Given 01/12/2014 Fluvirin Virus Vaccine 90573 01 47259 Given 01/23/2007 Pneumovax 23 31499 Given 08/20/2005 Tetanus/Diptheria(Td)Toxoids Preservative Free 59379 Given 07/26/1997 Pneumovax 23 [id number] Refused 12/20/2011 [...] Wi-Inr Inr 1.9 Complete Blood Count 12/20/2020 [facility] Supervisory Historian: [place] [address] [phone] WBC 11.6 x10*3/UL High 4.1 - 10.9 [...] 2.0 - 7.8 Basic Metabolic Panel 12/20/2020 [facility] Supervisory Historian: [place] [address] [phone] Glucose 108 mg/dL High 74 - 99 [...] >60 3 Laboratory test finding 12/20/2020 [facility] [address] [place] [address] [phone] Urine Culture FULL REPORT IN L <SEE NOTE> Normal 4 Ua Dipstick Only 12/20/2020 [facility] , Supervisory Historian: [place] [address] [phone] Urine Color YELLOW Yellow Urine Appearance CLOUDY Abnormal Clear Urine PH 6.0 units 5.0 - 9.0 Urine Specific [place] 1.010 1.005 - 1.030 Urine Leukocytes LARGE Abnormal Negative Urine Blood SMALL Abnormal Negative Urine Protein 1+ Abnormal Negative -Trace Urine Glucose NEGATIVE mg/dL Negative Urine Nitrite POSITIVE Abnormal Negative Urine Ketone NEGATIVE mg/dL Negative Urine Bilirubin NEGATIVE Negative Urine Urobilinogen 0.2 mg/dL 0.2 - 1.0 Laboratory test finding 12/13/2020 [facility] 4.8 Complete Blood Count 12/13/2020 [facility], Supervisory Historian: [place] [address] [phone] WBC 14.4 x10*3/UL High 4.1 - 10.9 [...] 2.0 - 7.8 Basic Metabolic Panel 12/13/2020 [facility] Supervisory Historian: [place] [address] [phone] Glucose 120 mg/dL High 74 - 99 [...] mL/min >60 7 Laboratory test finding 12/13/2020 [facility] leon, Supervisory Historian: Dr Sameer Coppola [facility] [phone] Magnesium 1.5 mg/dL Low 1.8 - 2.4 Laboratory test finding 12/04/2020 [facility] leon Supervisory Historian: [place] [address] [phone] Potassium 3.9 mEq/L 3.5 - 5.1 Basic Metabolic Panel 11/30/2020 [facility] Supervisory Historian: [place] [address] [phone] Glucose 94 mg/dL 74 - 99 8 [...] mL/min >60 10 Laboratory test finding 11/30/2020 [facility] Ken quintero Supervisory Historian: Dr Sameer Coppola [place] [id number] [phone] Magnesium 1.3 mg/dL Low 1.8 - 2.4 Laboratory test finding 11/30/2020 [facility] 3.1 Complete Blood Count 10/25/2020 [facility], Supervisory Historian: [place] [address] [phone] WBC 10.3 x10*3/UL 4.1 - 10.9 RBC [...] 2.0 - 7.8 Comprehensive Chem Profile 10/25/2020 [facility] lorri Echevarria Supervisory Historian: [place] [address] [phone] Glucose 100 mg/dL High 74 - 99 [...] Wi-Inr Inr 3.4 Complete Blood Count 09/05/2020 [facility] lorri quezada Supervisory Historian: [place] [address] [phone] WBC 12.1 x10*3/UL High 4.1 - 10.9 [...] 2.0 - 7.8 Basic Metabolic Panel 09/05/2020 [facility] Supervisory Historian: Dr Sameer Tristan [place], [place] [id number] [phone] Glucose 108 mg/dL High 74 - 99 [...] mL/min >60 15 Laboratory test finding 09/05/2020 [facility] Supervisory Historian: Dr Sameer Tristan [place], [place] [id number] [phone] Magnesium 1.6 mg/dL Low 1.8 - 2.4 Laboratory test finding 08/28/2020 [facility] 3.7 Laboratory test finding 08/22/2020 [facility] 4.1 Laboratory test finding 08/14/2020 [facility] 3.9 Laboratory test finding 08/07/2020 [facility] 1.5 Complete Blood Count 08/07/2020 [facility] Supervisory Historian: [place] [address] [phone] WBC 10.6 x10*3/UL 4.1 - 10.9 RBC [...] 2.0 - 7.8 Basic Metabolic Panel 08/07/2020 [facility] Supervisory Historian: Dr Sameer Tristan [place], [place] [address] [phone] Glucose 103 mg/dL High 74 - 99 [...] mL/min >60 18 Coronavirus 2019 Nasopharygeal 07/28/2020 [facility] [address] [place] [address] [phone] Coronavirus 2019 Nasopharygeal ASSAY INFORMATIO <SEE N OTE> 19 Laboratory test finding 07/17/2020 [facility] In[facility] 3.2 Coronavirus 2019 Nasopharygeal 07/15/2020 [facility] [id number] [place] [address] [phone] Coronavirus 2019 Nasopharygeal ASSAY INFORMATIO <SEE N [...] LITTLE GFR LEFT ESRD GFR <15 ON TOBACCO CLASSER 4 FULL REPORT IN LAB NOTES (eC [...] LITTLE GFR LEFT ESRD GFR <15 ON TOBACCO CLASSER 8 100-125 mg/dL PRE-DIABET ES/FASTING >126 mg/dL DIABETES/FASTING 9 NOTE: RESULT VERIFIED. 10 CHRONIC KIDNEY DISEASE STAGI NG PER NKF STAGE I & II GFR >= 60 NORMAL TO MILDLY DECREASED STAGE III GFR 30-59 MODERATELY DECREASED STAGE IV GFR 15-29 SEVERELY DECREASED STAGE V GFR <15 VERY LITTLE GFR LEFT ESRD GFR <15 ON TOBACCO CLASSER 11 100-125 mg/dL PRE-DIABET ES/FASTING >126 mg/dL DIABETES/FASTING 12 CHRONIC KIDNEY DISEASE STAGI NG PER NKF STAGE I & II GFR >= 60 NORMAL TO MILDLY DECREASED STAGE III GFR 30-59 MODERATELY DECREASED STAGE IV GFR 15-29 SEVERELY DECREASED STAGE V GFR <15 VERY LITTLE GFR LEFT ESRD GFR <15 ON TOBACCO CLASSER 13 NOTE: RESULT VERIFIED. 14 100-125 mg/dL PRE-DIABET ES/FASTING >126 mg/dL DIABETES/FASTING 15 CHRONIC KIDNEY DISEASE STAGI NG PER NKF STAGE I & II GFR >= 60 NORMAL TO MILDLY DECREASED STAGE III GFR 30-59 MODERATELY DECREASED STAGE IV GFR 15-29 SEVERELY DECREASED STAGE V GFR <15 VERY LITTLE GFR LEFT ESRD GFR <15 ON TOBACCO CLASSER 16 100-125 mg/dL PRE-DIABET ES/FASTING >126 mg/dL DIABETES/FASTING 17 NOTE: RESULT VERIFIED. 18 CHRONIC KIDNEY DISEASE STAGI NG PER NKF STAGE I & II GFR >= 60 NORMAL TO MILDLY DECREASED STAGE III GFR 30-59 MODERATELY DECREASED STAGE IV GFR 15-29 SEVERELY DECREASED STAGE V GFR <15 VERY LITTLE GFR LEFT ESRD GFR <15 ON TOBACCO CLASSER 19 ASSAY INFORMATION: Real Time RT-PCR NOTE: The COVID-19 assay has been cleared by the U.S. Food and Drug Administration under the Emergency Use Authorization (EUA). [facility] are designated as high complexity laboratories by the Clinical Laboratory Improvement Amendments of 1988(CLIA) and are qualified to perform this test. Not Detected 20 ASSAY INFORMATION: Real Time RT-PCR NOTE: The COVID-19 assay has been cleared by the U.S. Food and Drug Administration under the Emergency Use Authorization (EUA). [facility] are designated as high complexity laboratories by the Clinical Laboratory Improvement Amendments of 1988(CLIA) and are qualified to perform this test. Not Detected Procedures Date Code Description Status 12/20/2020 25277 Office/Outpatient Established Lo w MDM 20-29 Min Completed 12/13/2020 97977 Office/Outpatient Established Mo d MDM 30-39 Min Completed 12/13/2020 87224 Office/Outpatient Established Mo d MDM 30-39 Min Completed 12/13/2020 87937 EKG/Interpretation & Report Comp leted 12/13/2020 58615 EKG/Interpretation & Report Comp leted 10/25/2020 24820 Office/Outpatient Established Mo d MDM 30-39 Min Completed 08/07/2020 97335 Office/Outpatient Established Mo d MDM 30-39 Min Completed 10/06/2013 [id number] Colonoscopy Completed 06/16/2006 [id number] Colonoscopy Completed 12/12/2005 [id number] Mammogram Completed Medical Devices Description No Information Available Encounters Type Date Location Provider Dx Diagnosis Office Visit 12/20/2020 7:40a [facility] Balbina Vincent ne, RECOVERY SPECIALIST N39.0 Urinary tract infection, site not specif ied R06.02 Shortness of breath E87.6 Hypokalemia Z79.01 intermediate designer (current) use of a nticoagulants S41.111A Laceration w/o foreign body of right upper arm, init encntr W10.8xxA Fall (on) (from) other stair s and steps, initial encounter Z23 Encounter for immunization Office Visit 12/13/2020 3:20p [facility] 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 Balbina Crespo [facility] 01/03/2021 Z51.81 Encounter for therapeutic drug l evel monitoring [facility] 01/03/2021 Z79.01 director long term care (current) drug use for prophylactic purposes Balbina Crespo [facility] 01/03/2021 S75.891D Other specified inju ry of other blood vessels at hip and thigh level, right leg, subsequent encounter [facility] 12/27/2020 S75.891D Other specified inju ry of other blood vessels at hip and thigh level, right leg, subsequent encounter Balbina Crespo, [facility] 12/27/2020 S75.891D Other specified inju ry of other blood vessels at hip and thigh level, right leg, subsequent encounter [facility] 12/27/2020 Z79.01 intermediate designer (current) use of antic oagulants Balbina Crespo, [facility] 12/27/2020 Z79.01 intermediate designer (current) use of antic oagulants [facility] 12/27/2020 Z51.81 Encounter for therapeutic drug l evel monitoring Balbina Crespo, [facility] 12/27/2020 Z51.81 Encounter for therapeutic drug l evel monitoring [facility] 12/20/2020 Z51.81 Encounter for therapeutic drug l evel monitoring Balbina Crespo, [facility] 12/20/2020 Z51.81 Encounter for therapeutic drug l evel monitoring [facility] 12/20/2020 Z79.01 intermediate designer (current) use of antic oagulants Balbina Crespo, [facility] 12/20/2020 Z79.01 intermediate designer (current) use of antic oagulants [facility] 12/20/2020 S75.891D Other specified inju ry of other blood vessels at hip and thigh level, right leg, subsequent encounter Balbina Crespo, [facility] 12/20/2020 N39.0 Urinary tract infection, site no t specified Balbina Crespo, [facility] 12/20/2020 S75.891D Other specified inju ry of other blood vessels at hip and thigh level, right leg, subsequent encounter [facility] 12/20/2020 R06.02 Shortness of breath Balbina Pearl Frank [facility] 12/20/2020 E87.6 Hypokalemia Balbina Crespo, [facility] 12/20/2020 Z79.01 MCFP (current) use of antic oagulants Balbina Pearl Frank, [facility] 12/20/2020 S41.111A Laceration without f oreign body of right upper arm, initial encounter Balbina Pearl Frank [facility] 12/20/2020 W10.8xxA Fall (on) (from) other stairs an d steps, initial encounter Balbina Crespo [facility] 12/20/2020 Z23 Encounter for immunization Balbina Frank, [facility] 12/13/2020 Z51.81 Encounter for therapeutic drug l evel monitoring Balbina Crespo, [facility] 12/13/2020 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 Balbina Crespo, [facility] 12/13/2020 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 Balbina Crespo, [facility] 12/13/2020 Z79.01 MCFP (current) use of antic oagulants Balbina Crespo, [facility] 12/13/2020 E83.42 Hypomagnesemia Balbina Crespo, [facility] 12/13/2020 J44.1 Chronic obstructive pulmonary disease with (acute) exacerbation Balbina Crespo [facility] 12/13/2020 Z87.891 Personal history of nicotine dep endence Balbina Crespo, [facility] 12/13/2020 Z51.81 Encounter for therapeutic drug l evel monitoring [facility] 12/13/2020 S75.891D Other specified inju ry of other blood vessels at hip and thigh level, right leg, subsequent encounter Balbina Crespo [facility] 12/13/2020 Z79.01 MCFP (current) use of antic oagulants Balbina Crespo [facility] 12/13/2020 R79.1 Abnormal coagulation profile Balbina Crespo [facility] 12/13/2020 D72.829 Elevated white blood cell count, unspecified Balbina Crespo [facility] 12/13/2020 Z79.01 intermediate designer (current) use of antic oagulants [facility] 12/13/2020 S75.891D Other specified inju ry of other blood vessels at hip and thigh level, right leg, subsequent encounter [facility] 12/13/2020 Z98.61 Coronary angioplasty status Balbina Crespo [facility] 12/13/2020 Z95.810 Presence of automatic (implantab le) cardiac defibrillator Balbina Pearl Zac [facility] 12/11/2020 R06.02 Shortness of breath Grady le JR, PA 12/04/2020 E87.6 Hypokalemia Balbina Pearl Frank [facility] 12/04/2020 E87.6 Hypokalemia Lab Schedule 11/30/2020 Z51.81 Encounter for therapeutic drug l evel monitoring Balbina Kang Zac [facility] 11/30/2020 I10 Essential (primary) hypertension Balbina Pearl Zac, [facility] 11/30/2020 Z79.01 MCFP (current) use of antic oagulants Balbina Kang Zac [facility] 11/30/2020 Z51.81 Encounter for therapeutic drug l evel monitoring [facility] 11/30/2020 S75.891D Other specified inju ry of other blood vessels at hip and thigh level, right leg, subsequent encounter Balbina Crespo [facility] 11/30/2020 Z79.01 MCFP (current) use of antic oagulants [facility] 11/30/2020 I10 Essential (primary) hypertension Lab Schedule 11/30/2020 S75.891D Other specified inju ry of other blood vessels at hip and thigh level, right leg, subsequent encounter [facility] 11/30/2020 E87.6 Hypokalemia Balbina Crespo, [facility] 11/30/2020 E87.6 Hypokalemia Lab Schedule 10/25/2020 Z51.81 Encounter for therapeutic drug l evel monitoring Balbina Crespo [facility] 10/25/2020 Z51.81 Encounter for therapeutic drug l evel monitoring [facility] 10/25/2020 Z79.01 intermediate designer (current) use of antic oagulants Balbina Crespo [facility] 10/25/2020 Z79.01 MCFP (current) use of antic oagulants [facility] 10/25/2020 S75.891D Other specified inju ry of other blood vessels at hip and thigh level, right leg, subsequent encounter Balbina Crespo [facility] 10/25/2020 I35.0 Nonrheumatic aortic (valve) sten osis Frederick Tristan, DO 10/25/2020 S75.891D Other specified inju ry of other blood vessels at hip and thigh level, right leg, subsequent encounter [facility] 10/25/2020 I25.10 Atherosclerotic heart disease of [place] coronary artery with Frederick Tristan, DO 10/25/2020 I50.22 Chronic systolic (congestive) he art failure Frederick Tristan, DO 10/25/2020 I44.2 Atrioventricular block, complete Frederick Tristan, DO 10/25/2020 I10 Essential (primary) hypertension Frederick Tristan, DO 10/25/2020 Z79.01 MCFP (current) use of antic oagulants Frederick Tristan, DO 10/25/2020 Z51.81 Encounter for therapeutic drug l evel monitoring Frederick Tristan, DO 09/11/2020 Z51.81 Encounter for therapeutic drug l evel monitoring Balbina Crespo, [facility] 09/11/2020 Z51.81 Encounter for therapeutic drug l evel monitoring [facility] 09/11/2020 Z79.01 MCFP (current) use of antic oagulants Balbina Pearl Frank, [facility] 09/11/2020 Z79.01 MCFP (current) use of antic oagulants [facility] 09/11/2020 S75.891D Other specified inju ry of other blood vessels at hip and thigh level, right leg, subsequent encounter Balbina Crespo, [facility] 09/11/2020 S75.891D Other specified inju ry of other blood vessels at hip and thigh level, right leg, subsequent encounter [facility] 09/05/2020 I10 Essential (primary) hypertension Balbina Pearl Frank, [facility] 09/05/2020 Z51.81 Encounter for therapeutic drug l evel monitoring Balbina Crespo, [facility] 09/05/2020 E87.6 Hypokalemia Balbina Pearl Frank, [facility] 09/05/2020 Z51.81 Encounter for therapeutic drug l evel monitoring [facility] 09/05/2020 Z79.01 intermediate designer (current) use of antic oagulants Balbina Pearl Frank, [facility] 09/05/2020 Z79.01 MCFP (current) use of antic oagulants [facility] 09/05/2020 S75.891D Other specified inju ry of other blood vessels at hip and thigh level, right leg, subsequent encounter Balbina Pearl Frank, [facility] 09/05/2020 S75.891D Other specified inju ry of other blood vessels at hip and thigh level, right leg, subsequent encounter [facility] 08/28/2020 Z51.81 Encounter for therapeutic drug l evel monitoring Balbina Pearl Frank, [facility] 08/28/2020 Z51.81 Encounter for therapeutic drug l evel monitoring [facility] 08/28/2020 Z79.01 MCFP (current) use of antic oagulants Balbina Pearl Zac, [facility] 08/28/2020 Z79.01 intermediate designer (current) use of antic oagulants [facility] 08/28/2020 S75.891D Other specified inju ry of other blood vessels at hip and thigh level, right leg, subsequent encounter Balbina Crespo [facility] 08/28/2020 S75.891D Other specified inju ry of other blood vessels at hip and thigh level, right leg, subsequent encounter [facility] 08/22/2020 Z51.81 Encounter for therapeutic drug l evel monitoring [facility] 08/22/2020 Z79.01 MCFP (current) use of antic oagulants [facility] 08/22/2020 S75.891D Other specified inju ry of other blood vessels at hip and thigh level, right leg, subsequent encounter [facility] 08/14/2020 Z51.81 Encounter for therapeutic drug l evel monitoring Balbina Crespo [facility] 08/14/2020 Z51.81 Encounter for therapeutic drug l evel monitoring [facility] 08/14/2020 S75.891D Other specified inju ry of other blood vessels at hip and thigh level, right leg, subsequent encounter Balbina Crespo [facility] 08/14/2020 S75.891D Other specified inju ry of other blood vessels at hip and thigh level, right leg, subsequent encounter [facility] 08/14/2020 Z79.01 MCFP (current) use of antic oagulants Balbina Crespo [facility] 08/14/2020 Z79.01 MCFP (current) use of antic oagulants [facility] 08/07/2020 Z51.81 Encounter for therapeutic drug l evel monitoring Balbina Crespo [facility] 08/07/2020 I10 Essential (primary) hypertension NICKY Morris JR 08/07/2020 S75.891D Other specified inju ry of other blood vessels at hip and thigh level, right leg, subsequent encounter Balbina Crespo [facility] 08/07/2020 Z79.01 MCFP (current) use of antic oagulants NICKY Morris JR 08/07/2020 E78.00 Pure hypercholesterolemia, unspe cified NICKY Morris JR 08/07/2020 Z51.81 Encounter for therapeutic drug l evel monitoring [facility] 08/07/2020 Z79.01 MCFP (current) use of antic oagulants ELENA Lucas 08/07/2020 R01.1 Cardiac murmur, unspecified Robe rt NICKY Valderrama JR 08/07/2020 S75.891D Other specified inju ry of other blood vessels at hip and thigh level, right leg, subsequent encounter [facility] 08/07/2020 I73.9 Peripheral vascular disease, uns pecified NICKY Morris JR 08/07/2020 I25.10 Atherosclerotic heart disease of [place] coronary artery with NICKY Morris JR 08/07/2020 E03.9 Hypothyroidism, unspecified Robe rt NICKY Valderrama JR 08/07/2020 Z79.01 intermediate designer (current) use of antic oagulants [facility] 08/07/2020 [...] l evel monitoring ELENA Lucas 07/17/2020 Z79.01 MCFP (current) use of antic oagulants [facility] 07/17/2020 Z79.01 MCFP (current) use of antic oagulants ELENA Lucas 07/17/2020 S75.891D Other specified inju ry of other blood vessels at hip and thigh level, right leg, subsequent encounter [facility] 07/17/2020 S75.891D Other specified inju ry of other blood vessels at hip and thigh level, right leg, subsequent encounter ELENA Lucas Plan of Treatment Future Appointment(s):* 01/19/2021 11:00 am - [facility] at [facility] * 01/05/2021 11:20 am - Nurse #2 at [facility] * 01/05/2021 10:45 am - [facility] at [facility] * 02/07/2021 8:00 am - ELENA Lucas at [facility] * 01/05/2021 11:40 am - aSmeer Tristan MD at [facility] 01/03/2021 - ELENA Lucas* J43.2 [...] Entresto. 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 Remains on Clopidogrel, Atorvastatin and Betablocker. * Z79.01 director long term care (current) drug use for prophylactic purposes* Comments:* [...]
--- OUTSIDE RECORDS SUMMARY | 2021-01-09 15:44 | CCD | Continuity of Care Document ---
Author Author Yovany Lucas Organization Unknown Address [address] [place] [address] [address] [place] [address] Phone [phone] Care Team Providers Care Anodize Machine Operator Name Role Phone Sameer Tristan JR, MD AUTM Unavailable Nicolas Albert MD AUTM [phone] Dick Medina MD AUTM [phone] Servando Collins MD AUTM [phone] Clara Lagunas OD AUTM Unavailable Renetta Swanson MD AUTM [phone] Brenda Mcgraw AUTM [phone] Problems Active Problems Provider Date Anticoagulants Longterm (Current) Use O nset: 01/25/1997 Injury Blood Vessel(S) Lower Extrem Other Specified Onset: 01/25/1997 Coronary arteriosclerosis Sameer Tristan MD Onset: 10/21 Chronic obstructive lung disease Sameer Tristan MD Onset : 10/21/2010 Gastroesophageal reflux disease Sameer Tristan MD Onset: 10/21/2010 Garza's esophagus Sameer Tristan MD Onset: 10/21/2010 Old myocardial infarction ELENA Lcuas Onset: 011 Hematuria syndrome ELENA Lucas Onset: [...] By Mouth Two Times A Day 60units Samere Tristan MD 06/13/2015 Atorvastatin Calcium 40mg Tablets [...] every 12 hours 14caps N39.0 Balbina Crespo [facility] 12/20 - 12/20/2020 Medications Administered in Office Medication SIG Qnty Indications Ordering Provider Date Administration Of Flu Vaccine Inj ection Balbina Crespo [facility] 12/20/2020 Immunization Adminstration,1 Vaccine/Tox oid Injection Balbina Crespo [facility] 12/20/2020 Covid-19 vaccine, Unspecified Inj [...] CPT Code Status Date Vaccine Lot # [id number] Given 12/20/2020 Adacel- Tetanus Diphtheria P ertussis [id number] 05489 Given 12/20/2020 Influenza Vaccin e Quadrivalent Preser/Antibiotic Free Im Use 99194 Given 12/20/2020 Influenza Vaccin e Quadrivalent Preser/Antibiotic Free Im Use [id number] 47052 Given 12/20/2020 Adacel- Tetanus Diphtheria P ertussis 01031 Given 12/29/2019 Influenza Vaccin e Quadrivalent Preser/Antibiotic Free Im Use 26222 Given 12/28/2018 Influenza Vaccin e Quadrivalent Preser/Antibiotic Free Im Use 201492 76754 Given 01/05/2018 Influenza Virus Vaccine, Quadrivalent ([id number]), Derived From 4 Given 12/02/2017 Shingrix U-Td Given 10/28/2017 Td(Adult)(Tetanus, Diphtheri a) unspecified 49704 Given 09/09/2017 Shingrix 33341 Given 01/01/2017 Influenza Vaccin e Quadrivalent Preser/Antibiotic Free Im Use 337407 Q2037 Given 01/16/2016 Fluvirin Virus Vaccine 41554 01 Q2037 Given 12/23/2014 Fluvirin Virus Vaccine 56083 01 63015 Given 04/29/2014 Prevnar 13 [id number] Q2037 Given 01/12/2014 Fluvirin Virus Vaccine 91339 01 61441 Given 01/23/2007 Pneumovax 23 06571 Given 08/20/2005 Tetanus/Diptheria(Td)Toxoids Preservative Free 87876 Given 07/26/1997 Pneumovax 23 [id number] Refused 12/20/2011 [...] Wi-Inr Inr 1.9 Complete Blood Count 12/20/2020 [facility] Micro Computer Specialist: [place] [address] [phone] WBC 11.6 x10*3/UL High 4.1 - 10.9 [...] 2.0 - 7.8 Basic Metabolic Panel 12/20/2020 [facility] Micro Computer Specialist: [place] [address] [phone] Glucose 108 mg/dL High 74 - 99 [...] Low >60 3 Laboratory test finding 12/20/2020 [facility] [address] [place] [address] [phone] Urine Culture FULL REPORT IN L <SEE NOTE> Normal 4 Ua Dipstick Only 12/20/2020 [facility] Micro Computer Specialist: [place] [address] [phone] Urine Color YELLOW Yellow Urine Appearance CLOUDY Abnormal Clear Urine PH 6.0 units 5.0 - 9.0 Urine Specific [place] 1.010 1.005 - 1.030 Urine Leukocytes LARGE Abnormal Negative Urine Blood SMALL Abnormal Negative Urine Protein 1+ Abnormal Negative -Trace Urine Glucose NEGATIVE mg/dL Negative Urine Nitrite POSITIVE Abnormal Negative Urine Ketone NEGATIVE mg/dL Negative Urine Bilirubin NEGATIVE Negative Urine Urobilinogen 0.2 mg/dL 0.2 - 1.0 Laboratory test finding 12/13/2020 Wi-In[facility] Inr 4.8 Complete Blood Count 12/13/2020 [facility], Micro Computer Specialist: [place] [address] [phone] WBC 14.4 x10*3/UL High 4.1 - 10.9 [...] 2.0 - 7.8 Basic Metabolic Panel 12/13/2020 [facility] Micro Computer Specialist: [place] [address] [phone] Glucose 120 mg/dL High 74 - 99 [...] mL/min >60 7 Laboratory test finding 12/13/2020 [facility], Micro Computer Specialist: Dr Sameer Coppola [id number] [phone] Magnesium 1.5 mg/dL Low 1.8 - 2.4 Laboratory test finding 12/04/2020 [facility] Micro Computer Specialist: [place] [address] [phone] Potassium 3.9 mEq/L 3.5 - 5.1 Basic Metabolic Panel 11/30/2020 [facility] Micro Computer Specialist: [place] [address] [phone] Glucose 94 mg/dL 74 - 99 8 [...] mL/min >60 10 Laboratory test finding 11/30/2020 [facility] quintero Micro Computer Specialist: Dr Sameer Coppola [place] [id number] [phone] Magnesium 1.3 mg/dL Low 1.8 - 2.4 Laboratory test finding 11/30/2020 [facility] 3.1 Complete Blood Count 10/25/2020 [facility] que[facility], Micro Computer Specialist: [place] [address] [phone] WBC 10.3 x10*3/UL 4.1 - 10.9 RBC [...] 2.0 - 7.8 Comprehensive Chem Profile 10/25/2020 [facility] Echevar[facility] Micro Computer Specialist: [place] [address] [phone] Glucose 100 mg/dL High 74 - 99 [...] Wi-Inr Inr 3.4 Complete Blood Count 09/05/2020 [facility] lor[facility] quezada Micro Computer Specialist: [place] [address] [phone] WBC 12.1 x10*3/UL High 4.1 - 10.9 [...] 2.0 - 7.8 Basic Metabolic Panel 09/05/2020 [facility] Micro Computer Specialist: Dr Sameer Tristan [place], [place] [id number] [phone] Glucose 108 mg/dL High 74 - 99 [...] mL/min >60 15 Laboratory test finding 09/05/2020 [facility] Micro Computer Specialist: Dr Sameer Tristan [place], [place] [id number] [phone] Magnesium 1.6 mg/dL Low 1.8 - 2.4 Laboratory test finding 08/28/2020 [facility] 3.7 Laboratory test finding 08/22/2020 [facility] 4.1 Laboratory test finding 08/14/2020 [facility] 3.9 Laboratory test finding 08/07/2020 [facility] 1.5 Complete Blood Count 08/07/2020 [facility] Micro Computer Specialist: [place] [address] [phone] WBC 10.6 x10*3/UL 4.1 - 10.9 RBC [...] 2.0 - 7.8 Basic Metabolic Panel 08/07/2020 [facility] Micro Computer Specialist: Dr Sameer Tristan [place], [place] [id number] [phone] Glucose 103 mg/dL High 74 - 99 [...] mL/min >60 18 Coronavirus 2019 Nasopharygeal 07/28/2020 [facility] [address] [place] [address] [phone] Coronavirus 2019 Nasopharygeal ASSAY INFORMATIO <SEE N OTE> 19 Laboratory test finding 07/17/2020 [facility]In[facility] Inr 3.2 Coronavirus 2019 Nasopharygeal 07/15/2020 [facility] [address] [place] [address] [phone] Coronavirus 2019 Nasopharygeal ASSAY INFORMATIO <SEE N [...] LITTLE GFR LEFT ESRD GFR <15 ON [employer]ER 4 FULL REPORT IN LAB NOTES (eC [...] LITTLE GFR LEFT ESRD GFR <15 ON [employer] TE[employer]ER 8 100-125 mg/dL PRE-DIABET ES/FASTING >126 mg/dL DIABETES/FASTING 9 NOTE: RESULT VERIFIED. 10 CHRONIC KIDNEY DISEASE STAGI NG PER NKF STAGE I & II GFR >= 60 NORMAL TO MILDLY DECREASED STAGE III GFR 30-59 MODERATELY DECREASED STAGE IV GFR 15-29 SEVERELY DECREASED STAGE V GFR <15 VERY LITTLE GFR LEFT ESRD GFR <15 ON [employer]ER 11 100-125 mg/dL PRE-DIABET ES/FASTING >126 mg/dL DIABETES/FASTING 12 CHRONIC KIDNEY DISEASE STAGI NG PER NKF STAGE I & II GFR >= 60 NORMAL TO MILDLY DECREASED STAGE III GFR 30-59 MODERATELY DECREASED STAGE IV GFR 15-29 SEVERELY DECREASED STAGE V GFR <15 VERY LITTLE GFR LEFT ESRD GFR <15 ON [employer] TE[employer]ER 13 NOTE: RESULT VERIFIED. 14 100-125 mg/dL PRE-DIABET ES/FASTING >126 mg/dL DIABETES/FASTING 15 CHRONIC KIDNEY DISEASE STAGI NG PER NKF STAGE I & II GFR >= 60 NORMAL TO MILDLY DECREASED STAGE III GFR 30-59 MODERATELY DECREASED STAGE IV GFR 15-29 SEVERELY DECREASED STAGE V GFR <15 VERY LITTLE GFR LEFT ESRD GFR <15 ON [employer] TEACHER 16 100-125 mg/dL PRE-DIABET ES/FASTING >126 mg/dL DIABETES/FASTING 17 NOTE: RESULT VERIFIED. 18 CHRONIC KIDNEY DISEASE STAGI NG PER NKF STAGE I & II GFR >= 60 NORMAL TO MILDLY DECREASED STAGE III GFR 30-59 MODERATELY DECREASED STAGE IV GFR 15-29 SEVERELY DECREASED STAGE V GFR <15 VERY LITTLE GFR LEFT ESRD GFR <15 ON [employer]ER 19 ASSAY INFORMATION: Real Time RT-PCR NOTE: The COVID-19 assay has been cleared by the U.S. Food and Drug Administration under the Emergency Use Authorization (EUA). [facility] are designated as high complexity laboratories by the Clinical Laboratory Improvement Amendments of 1988(CLIA) and are qualified to perform this test. Not Detected 20 ASSAY INFORMATION: Real Time RT-PCR NOTE: The COVID-19 assay has been cleared by the U.S. Food and Drug Administration under the Emergency Use Authorization (EUA). [facility] are designated as high complexity laboratories by the Clinical Laboratory Improvement Amendments of 1988(CLIA) and are qualified to perform this test. Not Detected Procedures Date Code Description Status 12/20/2020 00625 Office/Outpatient Established Lo w MDM 20-29 Min Completed 12/13/2020 86951 Office/Outpatient Established Mo d MDM 30-39 Min Completed 12/13/2020 45014 Office/Outpatient Established Mo d MDM 30-39 Min Completed 12/13/2020 05239 EKG/Interpretation & Report Comp leted 12/13/2020 50360 EKG/Interpretation & Report Comp leted 10/25/2020 14859 Office/Outpatient Established Mo d MDM 30-39 Min Completed 08/07/2020 41761 Office/Outpatient Established Mo d MDM 30-39 Min Completed 10/06/2013 [id number] Colonoscopy Completed 06/16/2006 [id number] Colonoscopy Completed 12/12/2005 [id number] Mammogram Completed Medical Devices Description No Information Available Encounters Type Date Location Provider Dx Diagnosis Office Visit 12/20/2020 7:40a [facility] 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 Aravind Tristan DO I35.0 Nonrheumatic aortic (valve) stenosis 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 I50.22 Chronic systolic (congestive ) heart failure I44.2 Atrioventricular block, comp lete I10 Essential (primary) hyperten mena Z79.01 prison (current) use of a nticoagulants Z51.[address] ug level monitoring Office Visit 08/07/2020 8:40a [facility] Prosper sarah Whitley JR, PA I10 Essential (primary) hyperten mena Z79.01 terminal make up 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 a nticoagulants E78.00 [...] Provider 01/03/2021 J43.2 Centrilobular emphysema Balbina Caballero, [facility] 01/03/2021 F41.9 Anxiety disorder, unspecified An venkat Crespo [facility] 01/03/2021 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 Balbina Crespo [facility] 01/03/2021 I25.119 Atherosclerotic hear t disease of [place] coronary artery with unspecified angina pectoris Balbina Crespo [facility] 01/03/2021 Z51.81 Encounter for therapeutic drug l evel monitoring Protime 01/03/2021 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 Balbina Crespo [facility] 01/03/2021 S75.891D Other specified inju ry of other blood vessels at hip and thigh level, right leg, subsequent encounter Protime 12/27/2020 S75.891D Other specified inju ry of other blood vessels at hip and thigh level, right leg, subsequent encounter Balbina Crespo, [facility] 12/27/2020 S75.891D Other specified inju ry of other blood vessels at hip and thigh level, right leg, subsequent encounter Protime 12/27/2020 Z79.01 terminal make up 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 antic oagulants Balbina Crespo, [facility] 12/27/2020 Z79.01 terminal make up 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 antic oagulants Protime 12/27/2020 Z51.81 Encounter for therapeutic drug l evel monitoring Balbina Crespo, [facility] 12/27/2020 Z51.81 Encounter for therapeutic drug l evel monitoring Protime 12/20/2020 Z51.81 Encounter for therapeutic drug l evel monitoring Balbina Crespo, [facility] 12/20/2020 Z51.81 Encounter for therapeutic drug l evel monitoring Protime 12/20/2020 Z79.01 terminal make up 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 antic oagulants Balbina Crespo, [facility] 12/20/2020 Z79.01 terminal make up 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 antic oagulants Protime 12/20/2020 S75.891D Other specified inju ry of other blood vessels at hip and thigh level, right leg, subsequent encounter Balbina Crespo, [facility] 12/20/2020 N39.0 Urinary tract infection, site no t specified Balbina Crespo, [facility] 12/20/2020 S75.891D Other specified inju ry of other blood vessels at hip and thigh level, right leg, subsequent encounter Protime 12/20/2020 R06.02 Shortness of breath Balbina Pearl Frank [facility] 12/20/2020 E87.6 Hypokalemia Balbina Crespo, [facility] 12/20/2020 Z79.01 prison (current) use of antic oagulants Balbina Pearl Frank, [facility] 12/20/2020 S41.111A Laceration without f oreign body of right upper arm, initial encounter Balbina Pearl Frank [facility] 12/20/2020 W10.8xxA Fall (on) (from) other stairs an d steps, initial encounter Balbina Crespo [facility] 12/20/2020 Z23 Encounter for immunization Balbina Frank, [facility] 12/13/2020 Z51.81 Encounter for therapeutic drug l evel monitoring Balbina Crespo, [facility] 12/13/2020 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 Balbina Crespo, [facility] 12/13/2020 I25.119 Atherosclerotic hear t disease of [place] coronary artery with unspecified angina pectoris Balbina Crespo, [facility] 12/13/2020 Z79.01 prison (current) use of antic oagulants Balbina Crespo, [facility] 12/13/2020 E83.42 Hypomagnesemia Balbina Crespo, [facility] 12/13/2020 J44.1 Chronic obstructive pulmonary disease with (acute) exacerbation Balbina Crespo [facility] 12/13/2020 Z87.891 Personal history of nicotine dep endence Balbina Crespo, [facility] 12/13/2020 Z51.81 Encounter for therapeutic drug l evel monitoring Protime 12/13/2020 S75.891D Other specified inju ry of other blood vessels at hip and thigh level, right leg, subsequent encounter Balbina Crespo [facility] 12/13/2020 Z79.01 prison (current) use of antic oagulants Balbina Crespo [facility] 12/13/2020 R79.1 Abnormal coagulation profile Balbina Crespo [facility] 12/13/2020 D72.829 Elevated white blood cell count, unspecified Balbina Crespo [facility] 12/13/2020 Z79.01 terminal make up 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 antic oagulants Protime 12/13/2020 S75.891D Other specified inju ry of other blood vessels at hip and thigh level, right leg, subsequent encounter Protime 12/13/2020 Z98.61 Coronary angioplasty status Balbina Crespo [facility] 12/13/2020 Z95.810 Presence of automatic (implantab le) cardiac defibrillator Balbina Pearl Zac [facility] 12/11/2020 R06.02 Shortness of breath Grady le JR, PA 12/04/2020 E87.6 Hypokalemia Balibna Pearl Frank [facility] 12/04/2020 E87.6 Hypokalemia Lab Schedule 11/30/2020 Z51.81 Encounter for therapeutic drug l evel monitoring Balbina Kang Zac [facility] 11/30/2020 I10 Essential (primary) hypertension Balbina Pearl Zac, [facility] 11/30/2020 Z79.01 prison (current) use of antic oagulants Balbina Kang Zac [facility] 11/30/2020 Z51.81 Encounter for therapeutic drug l evel monitoring Protime 11/30/2020 S75.891D Other specified inju ry of other blood vessels at hip and thigh level, right leg, subsequent encounter Balbina Crespo [facility] 11/30/2020 Z79.01 prison (current) use of antic oagulants Protime 11/30/2020 I10 Essential (primary) hypertension Lab Schedule 11/30/2020 S75.891D Other specified inju ry of other blood vessels at hip and thigh level, right leg, subsequent encounter Protime 11/30/2020 E87.6 Hypokalemia Balbina Crespo, [facility] 11/30/2020 E87.6 Hypokalemia Lab Schedule 10/25/2020 Z51.81 Encounter for therapeutic drug l evel monitoring Balbina Crespo [facility] 10/25/2020 Z51.81 Encounter for therapeutic drug l evel monitoring Protime 10/25/2020 Z79.01 terminal make up 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 antic oagulants Balbina Crespo [facility] 10/25/2020 Z79.01 prison (current) use of antic oagulants Protime 10/25/2020 S75.891D Other specified inju ry of other blood vessels at hip and thigh level, right leg, subsequent encounter Balbina Crespo [facility] 10/25/2020 I35.0 Nonrheumatic aortic (valve) sten osis Frederick Tristan, DO 10/25/2020 S75.891D Other specified inju ry of other blood vessels at hip and thigh level, right leg, subsequent encounter Protime 10/25/2020 I25.10 Atherosclerotic heart disease of [place] coronary artery with Frederick Tristan, DO 10/25/2020 I50.22 Chronic systolic (congestive) he art failure Frederick Tristan, DO 10/25/2020 I44.2 Atrioventricular block, complete Frederick Tristan, DO 10/25/2020 I10 Essential (primary) hypertension Frederick Tristan, DO 10/25/2020 Z79.01 prison (current) use of antic oagulants Frederick Tristan, DO 10/25/2020 Z51.81 Encounter for therapeutic drug l evel monitoring Frederick Tristan, DO 09/11/2020 Z51.81 Encounter for therapeutic drug l evel monitoring Balbina Crespo, [facility] 09/11/2020 Z51.81 Encounter for therapeutic drug l evel monitoring Protime 09/11/2020 Z79.01 prison (current) use of antic oagulants Balbina Pearl Frank, [facility] 09/11/2020 Z79.01 prison (current) use of antic oagulants Protime 09/11/2020 S75.891D Other specified inju ry of other blood vessels at hip and thigh level, right leg, subsequent encounter Balbina Crespo, [facility] 09/11/2020 S75.891D Other specified inju ry of other blood vessels at hip and thigh level, right leg, subsequent encounter Protime 09/05/2020 I10 Essential (primary) hypertension Balbina Pearl Frank, [facility] 09/05/2020 Z51.81 Encounter for therapeutic drug l evel monitoring Balbina Crespo, [facility] 09/05/2020 E87.6 Hypokalemia Balbina Pearl Frank, [facility] 09/05/2020 Z51.81 Encounter for therapeutic drug l evel monitoring Protime 09/05/2020 Z79.01 terminal make up 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 antic oagulants Balbina Pearl Frank, [facility] 09/05/2020 Z79.01 prison (current) use of antic oagulants Protime 09/05/2020 S75.891D Other specified inju ry of other blood vessels at hip and thigh level, right leg, subsequent encounter Balbina Pearl Frank, [facility] 09/05/2020 S75.891D Other specified inju ry of other blood vessels at hip and thigh level, right leg, subsequent encounter Protime 08/28/2020 Z51.81 Encounter for therapeutic drug l evel monitoring Balbina Pearl Frank, [facility] 08/28/2020 Z51.81 Encounter for therapeutic drug l evel monitoring Protime 08/28/2020 Z79.01 prison (current) use of antic oagulants Balbina Pearl Zac, [facility] 08/28/2020 Z79.01 terminal make up 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 antic oagulants Protime 08/28/2020 S75.891D Other specified inju ry of other blood vessels at hip and thigh level, right leg, subsequent encounter Balbina Crespo [facility] 08/28/2020 S75.891D Other specified inju ry of other blood vessels at hip and thigh level, right leg, subsequent encounter Protime 08/22/2020 Z51.81 Encounter for therapeutic drug l evel monitoring Protime 08/22/2020 Z79.01 prison (current) use of antic oagulants Protime 08/22/2020 S75.891D Other specified inju ry of other blood vessels at hip and thigh level, right leg, subsequent encounter Protime 08/14/2020 Z51.81 Encounter for therapeutic drug l evel monitoring Balbina Crespo [facility] 08/14/2020 Z51.81 Encounter for therapeutic drug l evel monitoring [facility] 08/14/2020 S75.891D Other specified inju ry of other blood vessels at hip and thigh level, right leg, subsequent encounter Balbina Crespo [facility] 08/14/2020 S75.891D Other specified inju ry of other blood vessels at hip and thigh level, right leg, subsequent encounter Protime 08/14/2020 Z79.01 prison (current) use of antic oagulants Balbina Crespo [facility] 08/14/2020 Z79.01 prison (current) use of antic oagulants Protime 08/07/2020 Z51.81 Encounter for therapeutic drug l evel monitoring Balbina Crespo [facility] 08/07/2020 I10 Essential (primary) hypertension NICKY Morris JR 08/07/2020 S75.891D Other specified inju ry of other blood vessels at hip and thigh level, right leg, subsequent encounter Balbina Crespo [facility] 08/07/2020 Z79.01 prison (current) use of antic oagulants NICKY Morris JR 08/07/2020 E78.00 Pure hypercholesterolemia, unspe cified NICKY Morris JR 08/07/2020 Z51.81 Encounter for therapeutic drug l evel monitoring Protime 08/07/2020 Z79.01 prison (current) use of antic oagulants ELENA Lucas 08/07/2020 R01.1 Cardiac murmur, unspecified Robe rt NICKY Valderrama JR 08/07/2020 S75.891D Other specified inju ry of other blood vessels at hip and thigh level, right leg, subsequent encounter Protime 08/07/2020 I73.9 Peripheral vascular disease, uns pecified NICKY Morris JR 08/07/2020 I25.10 Atherosclerotic heart disease of [place] coronary artery with NICKY Morris JR 08/07/2020 E03.9 Hypothyroidism, unspecified Robe rt NICKY Valderrama JR 08/07/2020 Z79.01 terminal make up 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 antic oagulants Protime [...] l evel monitoring ELENA Lucas 07/17/2020 Z79.01 prison (current) use of antic oagulants Protime 07/17/2020 Z79.01 prison (current) use of antic oagulants ELENA Lucas 07/17/2020 S75.891D Other specified inju ry of other blood vessels at hip and thigh level, right leg, subsequent encounter Protime 07/17/2020 S75.891D Other specified inju ry of other blood vessels at hip and thigh level, right leg, subsequent encounter ELENA Lucas Plan of Treatment Future Appointment(s):* 01/19/2021 11:00 am - [facility] at [facility] * 01/05/2021 11:20 am - Nurse #2 at [facility] * 01/05/2021 10:45 am - [facility] at [facility] * 02/07/2021 8:00 am - ELENA Lucas at [facility] * 01/05/2021 11:40 am - Sameer Tristan MD at [facility] 01/03/2021 - ELENA Lucas* J43.2 [...] Entresto. * I25.119 Atherosclerotic heart disease of [place] coronary artery with unspecified angina pectoris* Comments:* history of ROB. Remains on Clopidogrel, Atorvastatin and Betablocker. 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
--- OUTSIDE RECORDS SUMMARY | 2021-01-09 15:44 | CCD | Continuity of Care Document ---
Author Author Yovany Lucas Organization Unknown Address [address] [place] [address] [address] [place] [address] Phone [phone] Care Team Providers Care Information Security Analyst Name Role Phone Sameer Tristan JR, MD AUTM Unavailable Nicolas Albert MD AUTM [phone] Dick Medina MD AUTM [phone] Servando Collins MD AUTM [phone] Clara Lagunas OD AUTM Unavailable Renetta Swanson MD AUTM [phone] Brenda Mcgraw AUTM [phone] Problems Active Problems Provider Date Anticoagulants Retirement (Current) Use O nset: 01/25/1997 Injury Blood [...] one tablet by mouth every day 90tabs aSmeer Tristan MD 02/23/2016 Advair Diskus 250-50mcg/Dose Aeros [...] every 12 hours 14caps N39.0 Balbina Crespo [facility] 12/20 - 12/20/2020 Medications Administered in Office Medication SIG Qnty Indications Ordering Provider Date Administration Of Flu Vaccine Inj ection Balbina Crespo [facility] 12/20/2020 Immunization Adminstration,1 Vaccine/Tox oid Injection Balbina Crespo [facility] 12/20/2020 Covid-19 vaccine, Unspecified Inj ection [...] CPT Code Status Date Vaccine Lot # [id number] Given 12/20/2020 Adacel- Tetanus Diphtheria P ertussis [id number] 72182 Given 12/20/2020 Influenza Vaccin e Quadrivalent Preser/Antibiotic Free Im Use 50862 Given 12/20/2020 Influenza Vaccin e Quadrivalent Preser/Antibiotic Free Im Use [id number] 20900 Given 12/20/2020 Adacel- Tetanus Diphtheria P ertussis 61544 Given 12/29/2019 Influenza Vaccin e Quadrivalent Preser/Antibiotic Free Im Use 79826 Given 12/28/2018 Influenza Vaccin e Quadrivalent Preser/Antibiotic Free Im Use [id number] 03449 Given 01/05/2018 Influenza Virus Vaccine, Quadrivalent ([id number]), Derived From 7 Given 12/02/2017 Shingrix U-Td Given 10/28/2017 Td(Adult)(Tetanus, Diphtheri a) unspecified 48012 Given 09/09/2017 Shingrix 58024 Given 01/01/2017 Influenza Vaccin e Quadrivalent Preser/Antibiotic Free Im Use [id number] Q2037 Given 01/16/2016 Fluvirin Virus Vaccine 62728 01 Q2037 Given 12/23/2014 Fluvirin Virus Vaccine 77426 01 98433 Given 04/29/2014 Prevnar 13 [id number] Q2037 Given 01/12/2014 Fluvirin Virus Vaccine 02786 01 14314 Given 01/23/2007 Pneumovax 23 23208 Given 08/20/2005 Tetanus/Diptheria(Td)Toxoids Preservative Free 91168 Given 07/26/1997 Pneumovax 23 [id number] Refused 12/20/2011 [...] Wi-Inr Inr 1.9 Complete Blood Count 12/20/2020 [facility] [employer] Observer Helper: [place] [address] [phone] WBC 11.6 x10*3/UL High 4.1 - 10.9 [...] 2.0 - 7.8 Basic Metabolic Panel 12/20/2020 [facility] [employer] Observer Helper: [place] [address] [phone] Glucose 108 mg/dL High 74 - 99 [...] Low >60 3 Laboratory test finding 12/20/2020 [facility] [address] [place] [address] [phone] Urine Culture FULL REPORT IN L <SEE NOTE> Normal 4 Ua Dipstick Only 12/20/2020 [facility] , [employer] Observer Helper: [place] [address] [phone] Urine Color YELLOW Yellow Urine Appearance CLOUDY Abnormal Clear Urine PH 6.0 units 5.0 - 9.0 Urine Specific [place] 1.010 1.005 - 1.030 Urine Leukocytes LARGE Abnormal Negative Urine Blood SMALL Abnormal Negative Urine Protein 1+ Abnormal Negative -Trace Urine Glucose NEGATIVE mg/dL Negative Urine Nitrite POSITIVE Abnormal Negative Urine Ketone NEGATIVE mg/dL Negative Urine Bilirubin NEGATIVE Negative Urine Urobilinogen 0.2 mg/dL 0.2 - 1.0 Laboratory test finding 12/13/2020 Wi-Inr Inr 4.8 Complete Blood Count 12/13/2020 [facility], [employer] Observer Helper: [place] [address] [phone] WBC 14.4 x10*3/UL High 4.1 - 10.9 [...] 2.0 - 7.8 Basic Metabolic Panel 12/13/2020 [facility] [employer] Observer Helper: [place] [address] [phone] Glucose 120 mg/dL High 74 - 99 [...] mL/min >60 7 Laboratory test finding 12/13/2020 [facility], [employer] Observer Helper: Dr Sameer Coppola [facility] [phone] Magnesium 1.5 mg/dL Low 1.8 - 2.4 Laboratory test finding 12/04/2020 [facility] [employer] Observer Helper: [place] [address] [phone] Potassium 3.9 mEq/L 3.5 - 5.1 Basic Metabolic Panel 11/30/2020 [facility] [employer] Observer Helper: [place] [address] [phone] Glucose 94 mg/dL 74 - 99 8 [...] mL/min >60 10 Laboratory test finding 11/30/2020 [facility] [employer] Observer Helper: Dr Sameer Coppola [place] [id number] [phone] Magnesium 1.3 mg/dL Low 1.8 - 2.4 Laboratory test finding 11/30/2020 Wi-In[facility] In[facility] 3.1 Complete Blood Count 10/25/2020 [facility], [employer] Observer Helper: [place] [address] [phone] WBC 10.3 x10*3/UL 4.1 - 10.9 RBC [...] 2.0 - 7.8 Comprehensive Chem Profile 10/25/2020 [facility] [employer] Observer Helper: [place] [address] [phone] Glucose 100 mg/dL High 74 - 99 [...] Wi-Inr Inr 3.4 Complete Blood Count 09/05/2020 [facility] que[facility]ada [employer] Observer Helper: [place] [address] [phone] WBC 12.1 x10*3/UL High 4.1 - 10.9 [...] 2.0 - 7.8 Basic Metabolic Panel 09/05/2020 [facility] [employer] Observer Helper: Dr Sameer Tristan [place], [place] [address] [phone] Glucose 108 mg/dL High 74 - 99 [...] mL/min >60 15 Laboratory test finding 09/05/2020 [facility] [employer] Observer Helper: Dr Sameer Tristan [place], [place] [address] [phone] Magnesium 1.6 mg/dL Low 1.8 - 2.4 Laboratory test finding 08/28/2020 [facility] 3.7 Laboratory test finding 08/22/2020 [facility] 4.1 Laboratory test finding 08/14/2020 Wi-In[facility] Inr 3.9 Laboratory test finding 08/07/2020 Wi-Inr Inr 1.5 Complete Blood Count 08/07/2020 [facility] [employer] Observer Helper: [place] [address] [phone] WBC 10.6 x10*3/UL 4.1 - 10.9 RBC [...] 2.0 - 7.8 Basic Metabolic Panel 08/07/2020 [facility] [employer] Observer Helper: Dr Sameer Tristan [place], [place] [id number] [phone] Glucose 103 mg/dL High 74 - 99 [...] mL/min >60 18 Coronavirus 2019 Nasopharygeal 07/28/2020 [facility] [address] [place] [address] [phone] Coronavirus 2019 Nasopharygeal ASSAY INFORMATIO <SEE N OTE> 19 Laboratory test finding 07/17/2020 Wi-Inr Inr 3.2 Coronavirus 2019 Nasopharygeal 07/15/2020 [facility] [address] [place] [address] [phone] Coronavirus 2019 Nasopharygeal ASSAY INFORMATIO <SEE N [...] LITTLE GFR LEFT ESRD GFR <15 ON AUXILIARY OPERATOR 4 FULL REPORT IN LAB NOTES (eC [...] LITTLE GFR LEFT ESRD GFR <15 ON AUXILIARY OPERATOR 8 100-125 mg/dL PRE-DIABET ES/FASTING >126 mg/dL DIABETES/FASTING 9 NOTE: RESULT VERIFIED. 10 CHRONIC KIDNEY DISEASE STAGI NG PER NKF STAGE I & II GFR >= 60 NORMAL TO MILDLY DECREASED STAGE III GFR 30-59 MODERATELY DECREASED STAGE IV GFR 15-29 SEVERELY DECREASED STAGE V GFR <15 VERY LITTLE GFR LEFT ESRD GFR <15 ON AUXILIARY OPERATOR 11 100-125 mg/dL PRE-DIABET ES/FASTING >126 mg/dL DIABETES/FASTING 12 CHRONIC KIDNEY DISEASE STAGI NG PER NKF STAGE I & II GFR >= 60 NORMAL TO MILDLY DECREASED STAGE III GFR 30-59 MODERATELY DECREASED STAGE IV GFR 15-29 SEVERELY DECREASED STAGE V GFR <15 VERY LITTLE GFR LEFT ESRD GFR <15 ON AUXILIARY OPERATOR 13 NOTE: RESULT VERIFIED. 14 100-125 mg/dL PRE-DIABET ES/FASTING >126 mg/dL DIABETES/FASTING 15 CHRONIC KIDNEY DISEASE STAGI NG PER NKF STAGE I & II GFR >= 60 NORMAL TO MILDLY DECREASED STAGE III GFR 30-59 MODERATELY DECREASED STAGE IV GFR 15-29 SEVERELY DECREASED STAGE V GFR <15 VERY LITTLE GFR LEFT ESRD GFR <15 ON AUXILIARY OPERATOR 16 100-125 mg/dL PRE-DIABET ES/FASTING >126 mg/dL DIABETES/FASTING 17 NOTE: RESULT VERIFIED. 18 CHRONIC KIDNEY DISEASE STAGI NG PER NKF STAGE I & II GFR >= 60 NORMAL TO MILDLY DECREASED STAGE III GFR 30-59 MODERATELY DECREASED STAGE IV GFR 15-29 SEVERELY DECREASED STAGE V GFR <15 VERY LITTLE GFR LEFT ESRD GFR <15 ON AUXILIARY OPERATOR 19 ASSAY INFORMATION: Real Time RT-PCR NOTE: The COVID-19 assay has been cleared by the U.S. Food and Drug Administration under the Emergency Use Authorization (EUA). [facility] are designated as high complexity laboratories by the Clinical Laboratory Improvement Amendments of 1988(CLIA) and are qualified to perform this test. Not Detected 20 ASSAY INFORMATION: Real Time RT-PCR NOTE: The COVID-19 assay has been cleared by the U.S. Food and Drug Administration under the Emergency Use Authorization (EUA). [facility] are designated as high complexity laboratories by the Clinical Laboratory Improvement Amendments of 1988(CLIA) and are qualified to perform this test. Not Detected Procedures Date Code Description Status 12/20/2020 03909 Office/Outpatient Established Lo w MDM 20-29 Min Completed 12/13/2020 13840 Office/Outpatient Established Mo d MDM 30-39 Min Completed 12/13/2020 25889 Office/Outpatient Established Mo d MDM 30-39 Min Completed 12/13/2020 58563 EKG/Interpretation & Report Comp leted 12/13/2020 97500 EKG/Interpretation & Report Comp leted 10/25/2020 58036 Office/Outpatient Established Mo d MDM 30-39 Min Completed 08/07/2020 92971 Office/Outpatient Established Mo d MDM 30-39 Min Completed 10/06/2013 [id number] Colonoscopy Completed 06/16/2006 [id number] Colonoscopy Completed 12/12/2005 [id number] Mammogram Completed Medical Devices Description No Information Available Encounters Type Date Location Provider Dx Diagnosis Office Visit 12/20/2020 7:40a [facility] 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 Balbina Crespo [facility] 01/03/2021 Z51.81 Encounter for therapeutic drug l evel monitoring [facility] 01/03/2021 Z79.01 intermediate card tender (current) drug use for prophylactic purposes Balbina Crespo [facility] 01/03/2021 S75.891D Other specified inju ry of other blood vessels at hip and thigh level, right leg, subsequent encounter [facility] 12/27/2020 S75.891D Other specified inju ry of other blood vessels at hip and thigh level, right leg, subsequent encounter Balbina Crespo, [facility] 12/27/2020 S75.891D Other specified inju ry of other blood vessels at hip and thigh level, right leg, subsequent encounter [facility] 12/27/2020 Z79.01 rat exterminator (current) use of antic oagulants Balbina Crespo, [facility] 12/27/2020 Z79.01 rat exterminator (current) use of antic oagulants [facility] 12/27/2020 Z51.81 Encounter for therapeutic drug l evel monitoring Balbina Crespo, [facility] 12/27/2020 Z51.81 Encounter for therapeutic drug l evel monitoring Protime 12/20/2020 Z51.81 Encounter for therapeutic drug l evel monitoring Balbina Crespo, [facility] 12/20/2020 Z51.81 Encounter for therapeutic drug l evel monitoring Protime 12/20/2020 Z79.01 rat exterminator (current) use of antic oagulants Balbina Crespo, [facility] 12/20/2020 Z79.01 rat exterminator (current) use of antic oagulants [facility] 12/20/2020 S75.891D Other specified inju ry of other blood vessels at hip and thigh level, right leg, subsequent encounter Balbina Crespo, [facility] 12/20/2020 N39.0 Urinary tract infection, site no t specified Balbina Crespo, [facility] 12/20/2020 S75.891D Other specified inju ry of other blood vessels at hip and thigh level, right leg, subsequent encounter [facility] 12/20/2020 R06.02 Shortness of breath Balbina Pearl Frank [facility] 12/20/2020 E87.6 Hypokalemia Balbina Crespo, [facility] 12/20/2020 Z79.01 senior care (current) use of antic oagulants Balbina Pearl Frank, [facility] 12/20/2020 S41.111A Laceration without f oreign body of right upper arm, initial encounter Balbina Pearl Frank [facility] 12/20/2020 W10.8xxA Fall (on) (from) other stairs an d steps, initial encounter Balbina Crespo [facility] 12/20/2020 Z23 Encounter for immunization Balbina Frank, [facility] 12/13/2020 Z51.81 Encounter for therapeutic drug l evel monitoring Balbina Crespo, [facility] 12/13/2020 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 Balbina Crespo, [facility] 12/13/2020 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 Balbina Crespo, [facility] 12/13/2020 Z79.01 senior care (current) use of antic oagulants Balbina Crespo, [facility] 12/13/2020 E83.42 Hypomagnesemia Balbina Crespo, [facility] 12/13/2020 J44.1 Chronic obstructive pulmonary disease with (acute) exacerbation Balbina Crespo [facility] 12/13/2020 Z87.891 Personal history of nicotine dep endence Balbina Crespo, [facility] 12/13/2020 Z51.81 Encounter for therapeutic drug l evel monitoring Pro[facility] 12/13/2020 S75.891D Other specified inju ry of other blood vessels at hip and thigh level, right leg, subsequent encounter Balbina Crespo [facility] 12/13/2020 Z79.01 senior care (current) use of antic oagulants Balbina Crespo [facility] 12/13/2020 R79.1 Abnormal coagulation profile Balbina Crespo [facility] 12/13/2020 D72.829 Elevated white blood cell count, unspecified Balbina Crespo [facility] 12/13/2020 Z79.01 rat exterminator (current) use of antic oagulants [facility] 12/13/2020 S75.891D Other specified inju ry of other blood vessels at hip and thigh level, right leg, subsequent encounter Pro[facility] 12/13/2020 Z98.61 Coronary angioplasty status Balbina Crespo [facility] 12/13/2020 Z95.810 Presence of automatic (implantab le) cardiac defibrillator Balbina Pearl Zac [facility] 12/11/2020 R06.02 Shortness of breath Grady le JR, PA 12/04/2020 E87.6 Hypokalemia Balbina Pearl Frank [facility] 12/04/2020 E87.6 Hypokalemia Lab Schedule 11/30/2020 Z51.81 Encounter for therapeutic drug l evel monitoring Balbina Kang Zac [facility] 11/30/2020 I10 Essential (primary) hypertension Balbina Pearl Zac, [facility] 11/30/2020 Z79.01 senior care (current) use of antic oagulants Balbina Kang Zac [facility] 11/30/2020 Z51.81 Encounter for therapeutic drug l evel monitoring Protime 11/30/2020 S75.891D Other specified inju ry of other blood vessels at hip and thigh level, right leg, subsequent encounter Balbina Crespo [facility] 11/30/2020 Z79.01 senior care (current) use of antic oagulants [facility] 11/30/2020 I10 Essential (primary) hypertension Lab Schedule 11/30/2020 S75.891D Other specified inju ry of other blood vessels at hip and thigh level, right leg, subsequent encounter Protime 11/30/2020 E87.6 Hypokalemia Balbina Crespo, [facility] 11/30/2020 E87.6 Hypokalemia Lab Schedule 10/25/2020 Z51.81 Encounter for therapeutic drug l evel monitoring Balbina Crespo [facility] 10/25/2020 Z51.81 Encounter for therapeutic drug l evel monitoring Protime 10/25/2020 Z79.01 rat exterminator (current) use of antic oagulants Balbina Crespo [facility] 10/25/2020 Z79.01 senior care (current) use of antic oagulants Pro[facility] 10/25/2020 S75.891D Other specified inju ry of other blood vessels at hip and thigh level, right leg, subsequent encounter Balbina Crespo [facility] 10/25/2020 I35.0 Nonrheumatic aortic (valve) sten osis Frederick Tristan, DO 10/25/2020 S75.891D Other specified inju ry of other blood vessels at hip and thigh level, right leg, subsequent encounter Pro[facility] 10/25/2020 I25.10 Atherosclerotic heart disease of [place] coronary artery with Frederick Tristan, DO 10/25/2020 I50.22 Chronic systolic (congestive) he art failure Frederick Tristan, DO 10/25/2020 I44.2 Atrioventricular block, complete Frederick Tristan, DO 10/25/2020 I10 Essential (primary) hypertension Frederick Tristan, DO 10/25/2020 Z79.01 senior care (current) use of antic oagulants Frederick Tristan, DO 10/25/2020 Z51.81 Encounter for therapeutic drug l evel monitoring Frederick Tristan, DO 09/11/2020 Z51.81 Encounter for therapeutic drug l evel monitoring Balbina Crespo, [facility] 09/11/2020 Z51.81 Encounter for therapeutic drug l evel monitoring Protime 09/11/2020 Z79.01 senior care (current) use of antic oagulants Balbina Pearl Frank, [facility] 09/11/2020 Z79.01 senior care (current) use of antic oagulants Protime 09/11/2020 S75.891D Other specified inju ry of other blood vessels at hip and thigh level, right leg, subsequent encounter Balbina Crespo, [facility] 09/11/2020 S75.891D Other specified inju ry of other blood vessels at hip and thigh level, right leg, subsequent encounter Protime 09/05/2020 I10 Essential (primary) hypertension Balbina Pearl Frank, [facility] 09/05/2020 Z51.81 Encounter for therapeutic drug l evel monitoring Balbina Crespo, [facility] 09/05/2020 E87.6 Hypokalemia Balbina Pearl Frank, [facility] 09/05/2020 Z51.81 Encounter for therapeutic drug l evel monitoring Protime 09/05/2020 Z79.01 rat exterminator (current) use of antic oagulants Balbina Pearl Frank, [facility] 09/05/2020 Z79.01 senior care (current) use of antic oagulants Pro[facility] 09/05/2020 S75.891D Other specified inju ry of other blood vessels at hip and thigh level, right leg, subsequent encounter Balibna Pearl Frank, [facility] 09/05/2020 S75.891D Other specified inju ry of other blood vessels at hip and thigh level, right leg, subsequent encounter Protime 08/28/2020 Z51.81 Encounter for therapeutic drug l evel monitoring Balbina Pearl Frank, [facility] 08/28/2020 Z51.81 Encounter for therapeutic drug l evel monitoring Protime 08/28/2020 Z79.01 senior care (current) use of antic oagulants Balbina Pearl Zac, [facility] 08/28/2020 Z79.01 rat exterminator (current) use of antic oagulants [facility] 08/28/2020 S75.891D Other specified inju ry of other blood vessels at hip and thigh level, right leg, subsequent encounter Balbina Crespo [facility] 08/28/2020 S75.891D Other specified inju ry of other blood vessels at hip and thigh level, right leg, subsequent encounter Protime 08/22/2020 Z51.81 Encounter for therapeutic drug l evel monitoring Protime 08/22/2020 Z79.01 senior care (current) use of antic oagulants Protime 08/22/2020 S75.891D Other specified inju ry of other blood vessels at hip and thigh level, right leg, subsequent encounter Protime 08/14/2020 Z51.81 Encounter for therapeutic drug l evel monitoring Balbina Crespo [facility] 08/14/2020 Z51.81 [facility] therapeutic drug [facility] S75.891D Other specified inju ry of other blood vessels at hip and thigh level, right leg, subsequent encounter Balbina Crespo [facility] 08/14/2020 S75.891D Other specified inju ry of other blood vessels at hip and thigh level, right leg, subsequent encounter Protime 08/14/2020 Z79.01 senior care (current) use of antic oagulants Balbina Crespo [facility] 08/14/2020 Z79.01 senior care (current) use of antic oagulants Pro[facility] 08/07/2020 Z51.81 Encounter for therapeutic drug l evel monitoring Balbina Crespo [facility] 08/07/2020 I10 Essential (primary) hypertension NICKY Morris JR 08/07/2020 S75.891D Other specified inju ry of other blood vessels at hip and thigh level, right leg, subsequent encounter Balbina Crespo [facility] 08/07/2020 Z79.01 senior care (current) use of antic oagulants NICKY Morris JR 08/07/2020 E78.00 Pure hypercholesterolemia, unspe cified NICKY Morris JR 08/07/2020 Z51.81 Encounter for therapeutic drug l evel monitoring Protime 08/07/2020 Z79.01 senior care (current) use of antic oagulants ELENA Lucas 08/07/2020 R01.1 Cardiac murmur, unspecified Robe rt NICKY Valderrama JR 08/07/2020 S75.891D Other specified inju ry of other blood vessels at hip and thigh level, right leg, subsequent encounter Protime 08/07/2020 I73.9 Peripheral vascular disease, uns pecified NICKY Morris JR 08/07/2020 I25.10 Atherosclerotic heart disease of [place] coronary artery with NICKY Morris JR 08/07/2020 E03.9 Hypothyroidism, unspecified Robe rt NICKY Valderrama JR 08/07/2020 Z79.01 rat exterminator (current) use of [...] l evel monitoring ELENA Lucas 07/17/2020 Z79.01 senior care (current) use of antic oagulants Protime 07/17/2020 Z79.01 senior care (current) use of antic oagulants ELENA Lucas 07/17/2020 S75.891D Other specified inju ry of other blood vessels at hip and thigh level, right leg, subsequent encounter Protime 07/17/2020 S75.891D Other specified inju ry of other blood vessels at hip and thigh level, right leg, subsequent encounter ELENA Lucas Plan of Treatment Future Appointment(s):* 01/19/2021 11:00 am - [facility] at [facility] * 01/05/2021 11:20 am - Nurse #2 at [facility] * 01/05/2021 10:45 am - [facility] at [facility] * 02/07/2021 8:00 am - ELENA Lucas at [facility] * 01/05/2021 11:40 am - Sameer Tristan MD at [facility] 01/03/2021 - ELENA Lucas* J43.2 [...] Entresto. 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 Remains on Clopidogrel, Atorvastatin and Betablocker. * Z79.01 intermediate card tender (current) drug use for prophylactic purposes* Comments:* [...]
--- OUTSIDE RECORDS SUMMARY | 2021-01-09 15:44 | CCD | Continuity of Care Document ---
Author Author Yovany Pena Organization Unknown Address [address] [place] [address] Phone [phone] Care Team Providers Care Inspector Paper Products Name Role Phone Sameer Tristan JR, MD AUTM Unavailable Nicolas Albert MD AUTM [phone] Dick Medina MD AUTM [phone] Servando Collins MD AUTM [phone] Clara Lagunas OD AUTM Unavailable Renetta Swanson MD AUTM [phone] Brenda Mcgraw AUTM [phone] Problems Active Problems Provider Date Anticoagulants Skilled [...] CPT Code Status Date Vaccine Lot # [id number] Given 12/20/2020 Adacel- Tetanus Diphtheria P ertussis [id number] Given 12/20/2020 Influenza Vaccin e Quadrivalent Preser/Antibiotic Free Im Use 04218 Given 12/20/2020 Influenza Vaccin e Quadrivalent Preser/Antibiotic Free Im Use [id number] 99225 Given 12/20/2020 Adacel- Tetanus Diphtheria P ertussis 94965 Given 12/29/2019 Influenza Vaccin e Quadrivalent Preser/Antibiotic Free Im Use 26954 Given 12/28/2018 Influenza Vaccin e Quadrivalent Preser/Antibiotic Free Im Use [id number] 79755 Given 01/05/2018 Influenza Virus Vaccine, Quadrivalent ([id number]), Derived From 1 Given 12/02/2017 Shingrix U-Td Given 10/28/2017 Td(Adult)(Tetanus, Diphtheri a) unspecified 26268 Given 09/09/2017 Shingrix 76936 Given 01/01/2017 Influenza Vaccin e Quadrivalent Preser/Antibiotic Free Im Use [id number] Q2037 Given 01/16/2016 Fluvirin Virus Vaccine 46151 01 Q2037 Given 12/23/2014 Fluvirin Virus Vaccine 26566 01 99596 Given 04/29/2014 Prevnar 13 [id number] Q2037 Given 01/12/2014 Fluvirin Virus Vaccine 53918 01 55113 Given 01/23/2007 Pneumovax 23 44611 Given 08/20/2005 Tetanus/Diptheria(Td)Toxoids Preservative Free 46501 Given 07/26/1997 Pneumovax 23 [id number] Refused 12/20/2011 [...] Wi-Inr Inr 1.9 Complete Blood Count 12/20/2020 [facility] [employer] Executive Director: [place] [address] [phone] WBC 11.6 x10*3/UL High 4.1 - 10.9 [...] 2.0 - 7.8 Basic Metabolic Panel 12/20/2020 [facility] Executive Director: [place] [address] [phone] Glucose 108 mg/dL High 74 - 99 [...] Laboratory test finding 12/20/2020 [facility] [address] [place] [address] [phone] Urine Culture FULL REPORT IN L <SEE NOTE> Normal 4 Ua Dipstick Only 12/20/2020 [facility] [employer] Executive Director: [place] [address] [phone] Urine Color YELLOW Yellow Urine Appearance CLOUDY Abnormal Clear Urine PH 6.0 units 5.0 - 9.0 Urine Specific [employer] 1.010 1.005 - 1.030 Urine Leukocytes LARGE Abnormal Negative Urine Blood SMALL Abnormal Negative Urine Protein 1+ Abnormal Negative -Trace Urine Glucose NEGATIVE mg/dL Negative Urine Nitrite POSITIVE Abnormal Negative Urine Ketone NEGATIVE mg/dL Negative Urine Bilirubin NEGATIVE Negative Urine Urobilinogen 0.2 mg/dL 0.2 - 1.0 Laboratory test finding 12/13/2020 Wi-Inr Inr 4.8 Complete Blood Count 12/13/2020 [facility] [employer] Executive Director: [place] [address] [phone] WBC 14.4 x10*3/UL High 4.1 - 10.9 [...] 2.0 - 7.8 Basic Metabolic Panel 12/13/2020 [facility] Executive Director: [place] [address] [phone] Glucose 120 mg/dL High 74 - 99 [...] mL/min >60 7 Laboratory test finding 12/13/2020 [facility], [employer] Executive Director: Dr Sameer Coppola [place] [id number] [phone] Magnesium 1.5 mg/dL Low 1.8 - 2.4 Laboratory test finding 12/04/2020 [facility] [employer] Executive Director: [place] [address] [phone] Potassium 3.9 mEq/L 3.5 - 5.1 Basic Metabolic Panel 11/30/2020 [facility] Executive Director: [place] [address] [phone] Glucose 94 mg/dL 74 - 99 8 [...] mL/min >60 10 Laboratory test finding 11/30/2020 [facility] [employer] Executive Director: Dr Sameer Coppola [place] [id number] [phone] Magnesium 1.3 mg/dL Low 1.8 - 2.4 Laboratory test finding 11/30/2020 [facility] 3.1 Complete Blood Count 10/25/2020 [facility] Executive Director: [place] [address] [phone] WBC 10.3 x10*3/UL 4.1 - 10.9 RBC [...] 2.0 - 7.8 Comprehensive Chem Profile 10/25/2020 [facility] [employer] Executive Director: [place] [address] [phone] Glucose 100 mg/dL High 74 - 99 [...] Wi-Inr Inr 3.4 Complete Blood Count 09/05/2020 [facility] [employer] Executive Director: [place] [address] [phone] WBC 12.1 x10*3/UL High 4.1 - 10.9 [...] 2.0 - 7.8 Basic Metabolic Panel 09/05/2020 [facility] Executive Director: [place] [address] [phone] Glucose 108 mg/dL High 74 - 99 [...] mL/min >60 15 Laboratory test finding 09/05/2020 [facility] [employer] Executive Director: Dr Sameer Tristan [place], [place] [id number] [phone] Magnesium 1.6 mg/dL Low 1.8 - 2.4 Laboratory test finding 08/28/2020 [facility] Inr 3.7 Laboratory test finding 08/22/2020 [facility] Inr 4.1 Laboratory test finding 08/14/2020 Wi-In[facility] Inr 3.9 Laboratory test finding 08/07/2020 Wi-Inr Inr 1.5 Complete Blood Count 08/07/2020 [facility] [employer] Executive Director: [place] [address] [phone] WBC 10.6 x10*3/UL 4.1 - 10.9 RBC [...] 2.0 - 7.8 Basic Metabolic Panel 08/07/2020 [facility] Executive Director: Dr Sameer Tristan [place], [place] [id number] [phone] Glucose 103 mg/dL High 74 - 99 [...] mL/min >60 18 Coronavirus 2019 Nasopharygeal 07/28/2020 [facility] [address] [place] [address] [phone] Coronavirus 2019 Nasopharygeal ASSAY INFORMATIO <SEE N OTE> 19 Laboratory test finding 07/17/2020 Wi-Inr Inr 3.2 Coronavirus 2019 Nasopharygeal 07/15/2020 [facility] [address] [place] [address] [phone] Coronavirus 2019 Nasopharygeal ASSAY INFORMATIO <SEE N [...] LITTLE GFR LEFT ESRD GFR <15 ON BLADE SHARPENER 4 FULL REPORT IN LAB NOTES (eC [...] LITTLE GFR LEFT ESRD GFR <15 ON BLADE SHARPENER 8 100-125 mg/dL PRE-DIABET ES/FASTING >126 mg/dL DIABETES/FASTING 9 NOTE: RESULT VERIFIED. 10 CHRONIC KIDNEY DISEASE STAGI NG PER NKF STAGE I & II GFR >= 60 NORMAL TO MILDLY DECREASED STAGE III GFR 30-59 MODERATELY DECREASED STAGE IV GFR 15-29 SEVERELY DECREASED STAGE V GFR <15 VERY LITTLE GFR LEFT ESRD GFR <15 ON BLADE SHARPENER 11 100-125 mg/dL PRE-DIABET ES/FASTING >126 mg/dL DIABETES/FASTING 12 CHRONIC KIDNEY DISEASE STAGI NG PER NKF STAGE I & II GFR >= 60 NORMAL TO MILDLY DECREASED STAGE III GFR 30-59 MODERATELY DECREASED STAGE IV GFR 15-29 SEVERELY DECREASED STAGE V GFR <15 VERY LITTLE GFR LEFT ESRD GFR <15 ON BLADE SHARPENER 13 NOTE: RESULT VERIFIED. 14 100-125 mg/dL PRE-DIABET ES/FASTING >126 mg/dL DIABETES/FASTING 15 CHRONIC KIDNEY DISEASE STAGI NG PER NKF STAGE I & II GFR >= 60 NORMAL TO MILDLY DECREASED STAGE III GFR 30-59 MODERATELY DECREASED STAGE IV GFR 15-29 SEVERELY DECREASED STAGE V GFR <15 VERY LITTLE GFR LEFT ESRD GFR <15 ON BLADE SHARPENER 16 100-125 mg/dL PRE-DIABET ES/FASTING >126 mg/dL DIABETES/FASTING 17 NOTE: RESULT VERIFIED. 18 CHRONIC KIDNEY DISEASE STAGI NG PER NKF STAGE I & II GFR >= 60 NORMAL TO MILDLY DECREASED STAGE III GFR 30-59 MODERATELY DECREASED STAGE IV GFR 15-29 SEVERELY DECREASED STAGE V GFR <15 VERY LITTLE GFR LEFT ESRD GFR <15 ON BLADE SHARPENER 19 ASSAY INFORMATION: Real Time RT-PCR NOTE: The COVID-19 assay has been cleared by the U.S. Food and Drug Administration under the Emergency Use Authorization (EUA). [facility] are designated as high complexity laboratories by the Clinical Laboratory Improvement Amendments of 1988(CLIA) and are qualified to perform this test. Not Detected 20 ASSAY INFORMATION: Real Time RT-PCR NOTE: The COVID-19 assay has been cleared by the U.S. Food and Drug Administration under the Emergency Use Authorization (EUA). [facility] are designated as high complexity laboratories by the Clinical Laboratory Improvement Amendments of 1988(CLIA) and are qualified to perform this test. Not Detected Procedures Date Code Description Status 12/20/2020 03787 Office/Outpatient Established Lo w MDM 20-29 Min Completed 12/13/2020 56235 Office/Outpatient Established Mo d MDM 30-39 Min Completed 12/13/2020 16182 Office/Outpatient Established Mo d MDM 30-39 Min Completed 12/13/2020 11440 EKG/Interpretation & Report Comp leted 12/13/2020 20845 EKG/Interpretation & Report Comp leted 10/25/2020 06436 Office/Outpatient Established Mo d MDM 30-39 Min Completed 08/07/2020 47711 Office/Outpatient Established Mo d MDM 30-39 Min Completed 10/06/2013 [id number] Colonoscopy Completed 06/16/2006 [id number] Colonoscopy Completed 12/12/2005 [id number] Mammogram Completed Medical Devices Description No Information Available Encounters Type Date Location Provider Dx Diagnosis Office Visit 12/20/2020 7:40a [facility] Balbina Vincent ne, APPLICATION ENGINEER N39.0 Urinary tract infection, site not specif ied R06.02 Shortness of breath E87.6 Hypokalemia Z79.01 terminal clerk (current) use of a nticoagulants S41.111A Laceration w/o foreign body of right upper arm, init encntr W10.8xxA Fall (on) (from) other stair s and steps, initial encounter Z23 Encounter for immunization Office Visit 12/13/2020 3:20p [facility] 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 Balbina Crespo [facility] 01/03/2021 Z51.81 Encounter for therapeutic drug l evel monitoring [facility] 01/03/2021 Z79.01 usp (current) drug use for prophylactic purposes Balbina [...] [facility] 12/27/2020 Z79.01 terminal clerk (current) use of antic oagulants [facility] 12/27/2020 Z51.81 Encounter for therapeutic drug l evel monitoring Balbina Crespo, [facility] 12/27/2020 Z51.81 Encounter for therapeutic drug l evel monitoring [facility] 12/20/2020 Z51.81 Encounter for therapeutic drug l evel monitoring Balbina Crespo, [facility] 12/20/2020 Z51.81 Encounter for therapeutic drug l evel monitoring [facility] 12/20/2020 Z79.01 terminal clerk (current) use of antic oagulants Balbina Crespo, [facility] 12/20/2020 Z79.01 terminal clerk (current) use of antic oagulants [facility] 12/20/2020 [...] R06.02 Shortness of breath Balbina Pearl Frank, [facility] 12/20/2020 E87.6 Hypokalemia Balbina Crespo, [facility] 12/20/2020 Z79.01 long-term (current) use of antic oagulants Balbina Pearl Frank, [facility] 12/20/2020 S41.111A Laceration without f oreign body of right upper arm, initial encounter Balbina Pearl Frank, [facility] 12/20/2020 W10.8xxA Fall [...] 12/13/2020 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 Balbina Crespo, [facility] 12/13/2020 Z79.01 terminal clerk (current) use of antic oagulants Balbina Crespo, [...] Crespo [facility] 12/13/2020 Z79.01 long-term (current) use of antic oagulants Balbina Crespo [facility] 12/13/2020 R79.1 Abnormal coagulation profile Balbina Crespo [facility] 12/13/2020 D72.829 Elevated white blood cell count, unspecified Balbina Crespo, [facility] 12/13/2020 Z79.01 long-term (current) use of antic oagulants [facility] 12/13/2020 S75.891D Other specified inju ry of other blood vessels at hip and thigh level, right leg, subsequent encounter [facility] 12/13/2020 Z98.61 Coronary angioplasty status Balbina Crespo [facility] 12/13/2020 Z95.810 Presence of automatic (implantab le) cardiac defibrillator Balbina Crespo [facility] 12/11/2020 R06.02 Shortness of breath Grady le JR, PA 12/04/2020 E87.6 Hypokalemia Balbina Pearl Frank [facility] 12/04/2020 E87.6 Hypokalemia Lab Schedule 11/30/2020 Z51.81 Encounter for therapeutic drug l evel monitoring Balbina Kang Zac [facility] 11/30/2020 I10 Essential (primary) hypertension Balbina Pearl Zac, [facility] 11/30/2020 Z79.01 terminal clerk (current) use of antic oagulants Balbina Kang Zac [facility] 11/30/2020 Z51.81 Encounter for therapeutic drug l evel monitoring [facility] 11/30/2020 S75.891D Other specified inju ry of other blood vessels at hip and thigh level, right leg, subsequent encounter Balbina Crespo [facility] 11/30/2020 Z79.01 terminal clerk (current) use of antic oagulants [facility] 11/30/2020 I10 Essential (primary) hypertension Lab Schedule 11/30/2020 S75.891D Other specified inju ry of other blood vessels at hip and thigh level, right leg, subsequent encounter [facility] 11/30/2020 E87.6 Hypokalemia Balbina Crespo [facility] 11/30/2020 E87.6 Hypokalemia Lab Schedule 10/25/2020 Z51.81 Encounter for therapeutic drug l evel monitoring Balbina Crespo [facility] 10/25/2020 Z51.81 Encounter for therapeutic drug l evel monitoring [facility] 10/25/2020 Z79.01 terminal clerk (current) use of antic oagulants Balbina Crespo [facility] 10/25/2020 Z79.01 long-term (current) use of antic oagulants [facility] 10/25/2020 [...] [facility] 10/25/2020 I25.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 with Frederick Tristan, DO 10/25/2020 I50.22 Chronic systolic (congestive) he art failure Frederick Tristan, DO 10/25/2020 I44.2 Atrioventricular block, complete Frederick Tristan, DO 10/25/2020 I10 Essential (primary) hypertension Frederick Tristan, DO 10/25/2020 Z79.01 terminal clerk (current) use of antic oagulants Frederick Tristan, DO 10/25/2020 Z51.81 Encounter for therapeutic drug l evel monitoring Frederick Valenzuelalogg, DO 09/11/2020 Z51.81 Encounter for therapeutic drug l evel monitoring Balbina Crespo, [facility] 09/11/2020 Z51.81 Encounter for therapeutic drug l evel monitoring [facility] 09/11/2020 Z79.01 long-term (current) use of antic oagulants Balbina Pearl Frank, [facility] 09/11/2020 Z79.01 long-term (current) use of antic oagulants [facility] 09/11/2020 S75.891D Other specified inju ry of other blood vessels at hip and thigh level, right leg, subsequent encounter Balbina Pearl Frank, [facility] 09/11/2020 S75.891D Other [...] Frank, [facility] 09/05/2020 Z79.01 terminal clerk (current) use of antic oagulants [facility] 09/05/2020 S75.891D Other specified inju ry of other blood vessels at hip and thigh level, right leg, subsequent encounter Balbina Pearl Frank [facility] 09/05/2020 S75.891D Other specified inju ry of other blood vessels at hip and thigh level, right leg, subsequent encounter [facility] 08/28/2020 Z51.81 Encounter for therapeutic drug l evel monitoring Balbina Pearl Frank, [facility] 08/28/2020 Z51.81 Encounter for therapeutic drug l evel monitoring [facility] 08/28/2020 Z79.01 terminal clerk (current) use of antic oagulants Balbina Crespo, [facility] 08/28/2020 Z79.01 terminal clerk (current) use of antic oagulants [facility] 08/28/2020 S75.891D Other specified inju ry of other blood vessels at hip and thigh level, right leg, subsequent encounter Balbina Crespo [facility] 08/28/2020 S75.891D Other specified inju ry of other blood vessels at hip and thigh level, right leg, subsequent encounter [facility] 08/22/2020 Z51.81 Encounter for therapeutic drug l evel monitoring [facility] 08/22/2020 Z79.01 long-term (current) use of antic oagulants [facility] 08/22/2020 S75.891D Other specified inju ry of other blood vessels at hip and thigh level, right leg, subsequent encounter [facility] 08/14/2020 Z51.81 Encounter for therapeutic drug l evel monitoring Balbina Crespo [facility] 08/14/2020 Z51.81 Encounter for therapeutic drug l evel monitoring [facility] 08/14/2020 S75.891D Other specified inju ry of other blood vessels at hip and thigh level, right leg, subsequent encounter Balbina Crespo [facility] 08/14/2020 S75.891D Other specified inju ry of other blood vessels at hip and thigh level, right leg, subsequent encounter [facility] 08/14/2020 Z79.01 long-term (current) use of antic oagulants Balbina Crespo [facility] 08/14/2020 Z79.01 terminal clerk (current) use of antic oagulants [facility] 08/07/2020 Z51.81 Encounter for therapeutic drug l evel monitoring Balbina Crespo [facility] 08/07/2020 I10 Essential (primary) hypertension NICKY Morris JR 08/07/2020 S75.891D Other specified inju ry of other blood vessels at hip and thigh level, right leg, subsequent encounter Balbina Crespo [facility] 08/07/2020 Z79.01 terminal clerk (current) use of antic oagulants NICKY Morris JR 08/07/2020 E78.00 Pure hypercholesterolemia, unspe cified NICKY Morris JR 08/07/2020 Z51.81 Encounter for therapeutic drug l evel monitoring [facility] 08/07/2020 Z79.01 long-term (current) use of antic oagulants ELENA Lucas 08/07/2020 R01.1 Cardiac murmur, unspecified Robe rt NICKY Valderrama JR 08/07/2020 S75.891D Other specified inju ry of other blood vessels at hip and thigh level, right leg, subsequent encounter [facility] 08/07/2020 I73.9 Peripheral vascular disease, uns pecified NICKY Morris JR 08/07/2020 I25.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 with NICKY Morris JR 08/07/2020 E03.9 Hypothyroidism, unspecified Robe rt NICKY Valderrama JR 08/07/2020 Z79.01 long-term (current) use of [...] l evel monitoring ELENA Lucas 07/17/2020 Z79.01 long-term (current) use of antic oagulants [facility] 07/17/2020 Z79.01 terminal clerk (current) use of antic oagulants ELENA Lucas 07/17/2020 S75.891D Other specified inju ry of other blood vessels at hip and thigh level, right leg, subsequent encounter [facility] 07/17/2020 S75.891D Other specified inju ry of other blood vessels at hip and thigh level, right leg, subsequent encounter ELENA Lucas Plan of Treatment Future Appointment(s):* 01/19/2021 11:00 am - [facility] at [facility] * 01/05/2021 11:20 am - Nurse #2 at [facility] * 01/05/2021 10:45 am - [facility] at [facility] * 02/07/2021 8:00 am - ELENA Lucas at [facility] * 01/05/2021 11:40 am - Sameer Tristan MD at [facility] 01/03/2021 - ELENA Lucas* J43.2 [...] Entresto. 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 Remains on Clopidogrel, Atorvastatin and Betablocker. * Z79.01 usp (current) drug use for prophylactic purposes* Comments:* [...]
--- OUTSIDE RECORDS SUMMARY | 2021-01-09 15:45 | CCD | Continuity of Care Document ---
Author Author Yovany Lucas Organization Unknown Address [address] [place] [address] [address] [place] [address] Phone [phone] Care Team Providers Care Computer Networking Instructor Name Role Phone Sameer Tristan JR, MD AUTM Unavailable Nicolas Albert MD AUTM [phone] Dick Medina MD AUTM [phone] Servando Collins MD AUTM [phone] Clara Lagunas OD AUTM Unavailable Renetta Swanson MD AUTM [phone] Brenda Mcgraw AUTM [phone] Problems Active Problems Provider Date Anticoagulants Skilled [...] SIG Qnty Indications Ordering Provide r Date Magnesium Oxide -MG Supplement 400mg Capsules 1 [...] MD 02/23/2016 Advair Diskus 250-50mcg/Dose Aeros ol inhale one puff by mouth twice a day 60units Sameer Tristan MD 06/13/2015 Atorvastatin Calcium [...] Tablets one tablet by mouth daily Unknown Amoxicillin/Clavulanate Potassium 875-125mg Tablets 1 by mouth twice a day Unknown Prednisone 20mg Tablets 2 tablets by mouth daily for 5 days Unknown Ventolin HFA 108(90Base) mcg/Act A erosol 2 puffs four times a day as needed Unknown History Medications Nitrofurantoin Monohyd Macro 100mg Capsules one every 12 hours 14caps N39.0 Balbina Crespo, [facility] 12/20 - 12/20/2020 Clopidogrel Bisulfate 75mg Tablets Take all 4 by mouth the day before the procedure. 4tabs Col ami Tristan MD 06/29/2020 - 07/03/2020 Medications Administered in Office Medication SIG Qnty Indications Ordering Provider Date Administration Of Flu Vaccine Inj ection Balbina Crespo [facility] 12/20/2020 Immunization Adminstration,1 Vaccine/Tox oid Injection Balbina Crespo, [facility] 12/20/2020 Covid-19 vaccine, Unspecified Inj ection Unknown 07/26/2020 Covid-19 vaccine, Unspecified Inj ection Unknown 06/24/2020 Administration Of Flu Vaccine Inj hernan Tristan MD 12/29/2019 Administration Of Flu Vaccine Inj caydenion Sameer Tristan MD 12/28/2018 Administration Of Flu Vaccine Inj hernan Tristan MD 01/05/2018 Immunization Adminstration,1 Vaccine/Tox oid Injection Sameer Tristan MD 2017 Administration Of Flu Vaccine Inj hernan Tristan MD 01/01/2017 Administration Of Flu Vaccine Inj hernan Tristan MD 01/16/2016 Administration Of Flu Vaccine Inj hernan Tristan MD 12/23/2014 Administration Of Flu Vaccine Inj ection Sameer Tristan MD 01/12/2014 Immunizations CPT Code Status Date Vaccine Lot # [id number] Given 12/20/2020 Adacel- Tetanus Diphtheria P ertussis [id number] Given 12/20/2020 Influenza Vaccin e Quadrivalent Preser/Antibiotic Free Im Use 04666 Given 12/20/2020 Influenza Vaccin e Quadrivalent Preser/Antibiotic Free Im Use 106202 11151 Given 12/20/2020 Adacel- Tetanus Diphtheria P ertussis 43416 Given 12/29/2019 Influenza Vaccin e Quadrivalent Preser/Antibiotic Free Im Use 09058 Given 12/28/2018 Influenza Vaccin e Quadrivalent Preser/Antibiotic Free Im Use [id number] 66433 Given 01/05/2018 Influenza Virus Vaccine, Quadrivalent ([id number]), Derived From 4 Given 12/02/2017 Shingrix U-Td Given 10/28/2017 Td(Adult)(Tetanus, Diphtheri a) unspecified 49964 Given 09/09/2017 Shingrix 24528 Given 01/01/2017 Influenza Vaccin e Quadrivalent Preser/Antibiotic Free Im Use 056351 Q2037 Given 01/16/2016 Fluvirin Virus Vaccine 96958 01 Q2037 Given 12/23/2014 Fluvirin Virus Vaccine 21244 01 91599 Given 04/29/2014 Prevnar 13 [id number] Q2037 Given 01/12/2014 Fluvirin Virus Vaccine 61142 01 80769 Given 01/23/2007 Pneumovax 23 05055 Given 08/20/2005 Tetanus/Diptheria(Td)Toxoids Preservative Free 53555 Given 07/26/1997 Pneumovax 23 [id number] Refused 12/20/2011 Fluvirin Virus Vaccine Q2037 Refused 12/19/2010 Fluvirin Virus Vaccine Vital Signs Date Vital Result Comment 12/20/2020 7:48am BP Systolic 122 mmHg BP Diastolic 70 mmHg Heart Rate 80 /min Height 63 inches 5'3" Weight 153.00 lb O2 % BldC Oximetry 91 % BMI (Body Mass Index) 27.1 kg/m2 12/13/2020 3:18pm BP Systolic 122 mmHg BP Diastolic 80 mmHg Heart Rate 77 /min Height 63 inches 5'3" Weight 155.00 lb O2 % BldC Oximetry 97 % BMI (Body Mass Index) 27.5 kg/m2 Results Test Acquired Date Facility Test Result H/L Range Note Complete Blood Count 12/20/2020 [facility] Casting Operator Helper: [place] [address] [phone] WBC 11.6 x10*3/UL High 4.1 - 10.9 [...] 2.0 - 7.8 Basic Metabolic Panel 12/20/2020 [facility] Casting Operator Helper: [place] [address] [phone] Glucose 108 mg/dL High 74 - 99 [...] Low >60 3 Laboratory test finding 12/20/2020 [facility] [address] [place] [address] [phone] Urine Culture FULL REPORT IN L <SEE NOTE> Normal 4 Ua Dipstick Only 12/20/2020 [facility] Casting Operator Helper: [place] [address] [phone] Urine Color YELLOW Yellow Urine Appearance CLOUDY Abnormal Clear Urine PH 6.0 units 5.0 - 9.0 Urine Specific [place] 1.010 1.005 - 1.030 Urine Leukocytes LARGE Abnormal Negative Urine Blood SMALL Abnormal Negative Urine Protein 1+ Abnormal Negative -Trace Urine Glucose NEGATIVE mg/dL Negative Urine Nitrite POSITIVE Abnormal Negative Urine Ketone NEGATIVE mg/dL Negative Urine Bilirubin NEGATIVE Negative Urine Urobilinogen 0.2 mg/dL 0.2 - 1.0 Laboratory test finding 12/20/2020 [facility] 1.9 Laboratory test finding 12/13/2020 [facility] Casting Operator Helper: Dr Sameer [place] [address] [phone] Magnesium 1.5 mg/dL Low 1.8 - 2.4 Basic Metabolic Panel 12/13/2020 [facility] Casting Operator Helper: Dr Sameer [place] [id number] [phone] Glucose 120 mg/dL High 74 - 99 5 BUN 18 mg/dL 7 - 18 Creatinine 1.2 mg/dL 0.6 - 1.3 Sodium 142 mEq/L 136 - 145 Potassium 3.5 mEq/L 3.5 - 5.1 Chloride 106 mEq/L 98 - 107 Carbon Dioxide 28 mEq/L 21 - 32 Calcium 9.3 mg/dL 8.5 - 10.1 GFR 58 mL/min Low >60 GFR >= 60 mL/min >60 6 Complete Blood Count 12/13/2020 [facility] Casting Operator Helper: [place] [address] [phone] WBC 14.4 x10*3/UL High 4.1 - 10.9 [...] # 12.7 x10*3/UL High 2.0 - 7.8 Laboratory test finding 12/13/2020 [facility] 4.8 Laboratory test finding 12/04/2020 [facility] lor[facility] quintero Casting Operator Helper: Dr Sameer [place] [id number] [phone] Potassium 3.9 mEq/L 3.5 - 5.1 Basic Metabolic Panel 11/30/2020 [facility] Casting Operator Helper: Dr Sameer [place] [id number] [phone] Glucose 94 mg/dL 74 - 99 8 [...] mL/min >60 10 Laboratory test finding 11/30/2020 [facility] l[facility] quintero Casting Operator Helper: [place] [address] [phone] Magnesium 1.3 mg/dL Low 1.8 - 2.4 Laboratory test finding 11/30/2020 [facility] 3.1 Complete Blood Count 10/25/2020 [facility] lorri quezada Casting Operator Helper: [place] [address] [phone] WBC 10.3 x10*3/UL 4.1 - 10.9 RBC [...] 2.0 - 7.8 Comprehensive Chem Profile 10/25/2020 lorri Sifuentes Casting Operator Helper: Dr Sameer Tr[place] [id number] [phone] Glucose 100 mg/dL High 74 - 99 [...] Laboratory test finding 09/05/2020 [facility] 3.4 Laboratory test finding 09/05/2020 Anat quintero, lorri Casting Operator Helper: Dr Sameer Tristan [place], [place] [id number] [phone] Magnesium 1.6 mg/dL Low 1.8 - 2.4 Basic Metabolic Panel 09/05/2020 [facility] Casting Operator Helper: Dr Sameer Tristan [place], [place] [id number] [phone] Glucose 108 mg/dL High 74 - 99 13 BUN 26 mg/dL High 7 - 18 Creatinine 1.3 mg/dL 0.6 - 1.3 Sodium 144 mEq/L 136 - 145 Potassium 3.4 mEq/L Low 3.5 - 5.1 Chloride 105 mEq/L 98 - 107 Carbon Dioxide 26 mEq/L 21 - 32 Calcium 9.5 mg/dL 8.5 - 10.1 GFR 53 mL/min Low >60 GFR >= 60 mL/min >60 14 Complete Blood Count 09/05/2020 [facility] Casting Operator Helper: [place] [address] [phone] WBC 12.1 x10*3/UL High 4.1 - 10.9 [...] # 10.4 x10*3/UL High 2.0 - 7.8 Laboratory test finding 08/28/2020 [facility] 3.7 Laboratory test finding 08/22/2020 [facility] 4.1 Laboratory test finding 08/14/2020 [facility] 3.9 Laboratory test finding 08/07/2020 [facility] 1.5 Complete Blood Count 08/07/2020 [facility] Casting Operator Helper: Dr Sameer Tristan [place], [place] [id number] [phone] WBC 10.6 x10*3/UL 4.1 - 10.9 RBC [...] 2.0 - 7.8 Basic Metabolic Panel 08/07/2020 [facility] Casting Operator Helper: [place] [address] [phone] Glucose 103 mg/dL High 74 - 99 [...] mL/min >60 18 Coronavirus 2019 Nasopharygeal 07/28/[address] [id number] [phone] Coronavirus 2019 Nasopharygeal ASSAY INFORMATIO <SEE N OTE> 19 Laboratory test finding 07/17/2020 [facility] 3.2 Coronavirus 2019 Nasopharygeal 07/15/2020 [facility] [address] [place] [address] [phone] Coronavirus 2019 Nasopharygeal ASSAY INFORMATIO <SEE N OTE> 20 Laboratory test finding 07/04/2020 [facility] 2.6 Complete Blood Count 07/04/2020 [facility] Casting Operator Helper: [place] [address] [phone] WBC 11.9 x10*3/UL High 4.1 - 10.9 21 RBC 4.90 x10*6/UL 4.20 - 6.30 Hemoglobin 14.3 g/dL 12.0 - 18.0 Hematocrit 43.3 % 37.0 - 51.0 MCV 88.4 fL 80.0 - 97.0 MCH 29.3 pg 26.0 - 32.0 MCHC 33.1 g/dL 31.0 - 38.0 RDW 13.6 % 11.6 - 13.7 PLT 264 x10*3/UL 140 - 440 MPV 9.6 FL 7.8 - 11.0 Lymph % 12.8 % 10.0 - 58.5 Mid % 4.6 % 1.7 - 9.3 Neut % 82.6 % 37.0 - 92.0 Lymph # 1.5 x10*3/UL 0.6 - 4.1 Mid # 0.6 x10*3/UL 0.1 - 0.6 Neut # 9.8 x10*3/UL High 2.0 - 7.8 Basic Metabolic Panel 07/04/2020 [facility] Casting Operator Helper: [place] [address] [phone] Glucose 106 mg/dL High 74 - 99 22 BUN 25 mg/dL High 7 - 18 Creatinine 1.5 mg/dL High 0.6 - 1.3 Sodium 144 mEq/L 136 - 145 Potassium 4.5 mEq/L 3.5 - 5.1 Chloride 108 mEq/L High 98 - 107 Carbon Dioxide 26 mEq/L 21 - 32 Calcium 9.2 mg/dL 8.5 - 10.1 GFR 45 mL/min Low >60 GFR 54 mL/min Low >60 23 1 NOTE: RESULT VERIFIED. 2 100-125 mg/dL PRE-DIABET ES/FASTING >126 mg/dL DIABETES/FASTING 3 CHRONIC KIDNEY DISEASE STAGI NG PER NKF STAGE I & II GFR >= 60 NORMAL TO MILDLY DECREASED STAGE III GFR 30-59 MODERATELY DECREASED STAGE IV GFR 15-29 SEVERELY DECREASED STAGE V GFR <15 VERY LITTLE GFR LEFT ESRD GFR <15 ON MANAGER PROVIDER RELATIONS 4 FULL REPORT IN LAB NOTES (eC W and Medfarzaneh). ORGANISM 1: ESCHERICHIA COLI COLONY COUNT >100,000 [...] BETA LACTAMASE IV NEGATIVE FOR ESBL 5 100-125 mg/dL PRE-DIABET ES/FASTING >126 mg/dL DIABETES/FASTING 6 CHRONIC KIDNEY DISEASE STAGI NG PER NKF STAGE I & II GFR >= 60 NORMAL TO MILDLY DECREASED STAGE III GFR 30-59 MODERATELY DECREASED STAGE IV GFR 15-29 SEVERELY DECREASED STAGE V GFR <15 VERY LITTLE GFR LEFT ESRD GFR <15 ON MANAGER PROVIDER RELATIONS 7 NOTE: RESULT VERIFIED. 8 100-125 mg/dL PRE-DIABET ES/FASTING >126 mg/dL DIABETES/FASTING 9 NOTE: RESULT VERIFIED. 10 CHRONIC KIDNEY DISEASE STAGI NG PER NKF STAGE I & II GFR >= 60 NORMAL TO MILDLY DECREASED STAGE III GFR 30-59 MODERATELY DECREASED STAGE IV GFR 15-29 SEVERELY DECREASED STAGE V GFR <15 VERY LITTLE GFR LEFT ESRD GFR <15 ON MANAGER PROVIDER RELATIONS 11 100-125 mg/dL PRE-DIABET ES/FASTING >126 mg/dL DIABETES/FASTING 12 CHRONIC KIDNEY DISEASE STAGI NG PER NKF STAGE I & II GFR >= 60 NORMAL TO MILDLY DECREASED STAGE III GFR 30-59 MODERATELY DECREASED STAGE IV GFR 15-29 SEVERELY DECREASED STAGE V GFR <15 VERY LITTLE GFR LEFT ESRD GFR <15 ON MANAGER PROVIDER RELATIONS 13 100-125 mg/dL PRE-DIABET ES/FASTING >126 mg/dL DIABETES/FASTING 14 CHRONIC KIDNEY DISEASE STAGI NG PER NKF STAGE I & II GFR >= 60 NORMAL TO MILDLY DECREASED STAGE III GFR 30-59 MODERATELY DECREASED STAGE IV GFR 15-29 SEVERELY DECREASED STAGE V GFR <15 VERY LITTLE GFR LEFT ESRD GFR <15 ON MANAGER PROVIDER RELATIONS 15 NOTE: RESULT VERIFIED. 16 100-125 mg/dL PRE-DIABET ES/FASTING >126 mg/dL DIABETES/FASTING 17 NOTE: RESULT VERIFIED. 18 CHRONIC KIDNEY DISEASE STAGI NG PER NKF STAGE I & II GFR >= 60 NORMAL TO MILDLY DECREASED STAGE III GFR 30-59 MODERATELY DECREASED STAGE IV GFR 15-29 SEVERELY DECREASED STAGE V GFR <15 VERY LITTLE GFR LEFT ESRD GFR <15 ON MANAGER PROVIDER RELATIONS 19 ASSAY INFORMATION: Real Time RT-PCR NOTE: The COVID-19 assay has been cleared by the U.S. Food and Drug Administration under the Emergency Use Authorization (EUA). [facility] and [facility] are designated as high complexity laboratories by the Clinical Laboratory Improvement Amendments of 1988(CLIA) and are qualified to perform this test. Not Detected 20 ASSAY INFORMATION: Real Time RT-PCR NOTE: The COVID-19 assay has been cleared by the U.S. Food and Drug Administration under the Emergency Use Authorization (EUA). [facility] and [facility] are designated as high complexity laboratories by the Clinical Laboratory Improvement Amendments of 1988(CLIA) and are qualified to perform this test. Not Detected 21 NOTE: RESULT VERIFIED. 22 100-125 mg/dL PRE-DIABET ES/FASTING >126 mg/dL DIABETES/FASTING 23 CHRONIC KIDNEY DISEASE STAGI NG PER NKF STAGE I & II GFR >= 60 NORMAL TO MILDLY DECREASED STAGE III GFR 30-59 MODERATELY DECREASED STAGE IV GFR 15-29 SEVERELY DECREASED STAGE V GFR <15 VERY LITTLE GFR LEFT ESRD GFR <15 ON MANAGER PROVIDER RELATIONS Procedures Date Code Description Status 12/20/2020 53616 Office/Outpatient Established Lo w MDM 20-29 Min Completed 12/13/2020 16395 Office/Outpatient Established Mo d MDM 30-39 Min Completed 12/13/2020 44076 Office/Outpatient Established Mo d MDM 30-39 Min Completed 12/13/2020 63008 EKG/Interpretation & Report Comp leted 12/13/2020 09353 EKG/Interpretation & Report Comp leted 10/25/2020 57474 Office/Outpatient Established Mo d MDM 30-39 Min Completed 08/07/2020 68868 Office/Outpatient Established Mo d MDM 30-39 Min Completed 10/06/2013 [id number] Colonoscopy Completed 06/16/2006 [id number] Colonoscopy Completed 12/12/2005 [id number] Mammogram Completed Medical Devices Description No Information Available Encounters Type Date Location Provider Dx Diagnosis Office Visit 12/20/2020 7:40a [facility] Balbina Vincent ne, [employer] N39.0 Urinary tract infection, site not specif ied R06.02 Shortness of breath E87.6 Hypokalemia Z79.01 [employer] customer service (current) use of a nticoagulants S41.111A Laceration w/o foreign body of right upper arm, init encntr W10.8xxA Fall (on) (from) other stair s and steps, initial encounter Z23 Encounter for immunization Office Visit 12/13/2020 3:20p [facility] 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 Prosper sarah Whitley JR, PA I10 Essential (primary) hyperten mena Z79.01 detention (current) use of a nticoagulants E78.00 Pure [...] and graft Assessments Date Code Description Provider 12/20/2020 Z79.01 [employer] customer service (current) use of antic oagulants Protime 12/20/2020 N39.0 Urinary tract infection, site no t specified ELENA Lucas 12/20/2020 R06.02 Shortness of breath Balbina Crespo [facility] 12/20/2020 S75.891D Other specified inju ry of other blood vessels at hip and thigh level, right leg, subsequent encounter Protime 12/20/2020 E87.6 Hypokalemia ELENA Lucas 12/20/2020 Z79.01 detention (current) use of antic oagulants Balbina Crespo [facility] 12/20/2020 S41.111A Laceration without f oreign body of right upper arm, initial encounter Balbina Crespo, [facility] 12/20/2020 W10.8xxA Fall (on) (from) other stairs an d steps, initial encounter Balbina Crespo, [facility] 12/20/2020 Z23 Encounter for immunization Balbina Caroline rosas Frank, [facility] 12/13/2020 Z51.81 Encounter for therapeutic drug l evel monitoring Balbina Crespo, [facility] 12/13/2020 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 Balbina Crespo, 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 12/13/2020 Z79.01 [employer] customer service (current) use of antic oagulants Balbina Crespo, [facility] 12/13/2020 E83.42 Hypomagnes[address]respo [facility] 12/13/2020 J44.1 Chronic obstructive pulmonary disease with (acute) exacerbation Balbina Crespo [facility] 12/13/2020 Z87.891 Personal history of nicotine dep endence Balbina Crespo, [facility] 12/13/2020 Z51.81 Encounter for therapeutic drug l evel monitoring [facility] 12/13/2020 S75.891D Other specified inju ry of other blood vessels at hip and thigh level, right leg, subsequent encounter Balbina Crespo [facility] 12/13/2020 Z79.01 [employer] customer service (current) use of antic oagulants Balbina Crespo [facility] 12/13/2020 R79.1 Abnormal coagulation profile Balbina Crespo [facility] 12/13/2020 D72.829 Elevated white blood cell count, unspecified Balbina Crespo [facility] 12/13/2020 Z79.01 intermodal customer service (current) use of antic oagulants [facility] 12/13/2020 S75.891D Other specified inju ry of other blood vessels at hip and thigh level, right leg, subsequent encounter Protime 12/13/2020 Z98.61 Coronary angioplasty status Balbina Crespo [facility] 12/13/2020 Z95.810 Presence of automatic (implantab le) cardiac defibrillator Balbina Crespo [facility] 12/11/2020 R06.02 Shortness of breath Grady le JR, NICKY 12/04/2020 E87.6 Hypokalemia Balbina Crespo, [facility] 12/04/2020 E87.6 Hypokalemia Lab Schedule 11/30/2020 Z51.81 Encounter for therapeutic drug l evel monitoring Balbina Crespo, [facility] 11/30/2020 I10 Essential (primary) hypertension Balbina Crespo [facility] 11/30/2020 Z79.01 detention (current) use of antic oagulants Balbina Crespo, [facility] 11/30/2020 Z51.81 Encounter for therapeutic drug l evel monitoring Protime 11/30/2020 S75.891D Other specified inju ry of other blood vessels at hip and thigh level, right leg, subsequent encounter Balbina Crespo [facility] 11/30/2020 Z79.01 intermodal customer service (current) use of antic oagulants Protime 11/30/2020 I10 Essential (primary) hypertension Lab Schedule 11/30/2020 S75.891D Other specified inju ry of other blood vessels at hip and thigh level, right leg, subsequent encounter Protime 11/30/2020 E87.6 [address] [facility] 11/30/2020 E87.6 Hypokalemia Lab Schedule 10/25/2020 Z51.81 Encounter for therapeutic drug l evel monitoring Balbina Crespo [facility] 10/25/2020 Z51.81 Encounter for therapeutic drug l evel monitoring Protime 10/25/2020 Z79.01 detention (current) use of antic oagulants Balbina Crespo [facility] 10/25/2020 Z79.01 detention (current) use of antic oagulants Protime 10/25/2020 S75.891D Other specified inju ry of other blood vessels at hip and thigh level, right leg, subsequent encounter Balbina Crespo [facility] 10/25/2020 I35.0 Nonrheumatic aortic (valve) sten [place] Frederick Tristan, DO 10/25/2020 S75.891D Other specified inju ry of other blood vessels at hip and thigh level, right leg, subsequent encounter Protime 10/25/2020 I25.10 Atherosclerotic heart disease of [place] coronary artery with Frederick Tristan, DO 10/25/2020 I50.22 Chronic systolic (congestive) he art failure Frederick Tristan, DO 10/25/2020 I44.2 Atrioventricular block, complete Frederick Tristan, DO 10/25/2020 I10 Essential (primary) hypertension Frederick Tristan, DO 10/25/2020 Z79.01 detention (current) use of antic oagulants Frederick Tristan, DO 10/25/2020 Z51.81 Encounter for therapeutic drug l evel monitoring Altonsamantha Valenzuelalogg, DO 09/11/2020 Z51.81 Encounter for therapeutic drug l evel monitoring Balbina Crespo, [facility] 09/11/2020 Z51.81 Encounter for therapeutic drug l evel monitoring Protime 09/11/2020 Z79.01 detention (current) use of antic oagulants Balbina Crespo [facility] 09/11/2020 Z79.01 intermodal customer service (current) use of antic oagulants Protime 09/11/2020 S75.891D Other specified inju ry of other blood vessels at hip and thigh level, right leg, subsequent encounter Balbina Crespo [facility] 09/11/2020 S75.891D Other specified inju ry of other blood vessels at hip and thigh level, right leg, subsequent encounter Protime 09/05/2020 I10 Essential (primary) hypertension Balbina Crespo, [facility] 09/05/2020 Z51.81 Encounter for therapeutic drug l evel monitoring Balbina Crespo, [facility] 09/05/2020 E87.6 [address]ok[address] [facility] 09/05/2020 Z51.81 Encounter for therapeutic drug l evel monitoring Protime 09/05/2020 Z79.01 intermodal customer service (current) use of antic oagulants Balbina Crespo, [facility] 09/05/2020 Z79.01 detention (current) use of antic oagulants Protime 09/05/2020 S75.891D Other specified inju ry of other blood vessels at hip and thigh level, right leg, subsequent encounter Balbina Crespo [facility] 09/05/2020 S75.891D Other specified inju ry of other blood vessels at hip and thigh level, right leg, subsequent encounter Protime 08/28/2020 Z51.81 Encounter for therapeutic drug l evel monitoring Balbina Crespo [facility] 08/28/2020 Z51.81 Encounter for therapeutic drug l evel monitoring Protime 08/28/2020 Z79.01 intermodal customer service (current) use of antic oagulants Balbina Crespo [facility] 08/28/2020 Z79.01 detention (current) use of antic oagulants Protime 08/28/2020 S75.891D Other specified inju ry of other blood vessels at hip and thigh level, right leg, subsequent encounter Balbina Crespo [facility] 08/28/2020 S75.891D Other specified inju ry of other blood vessels at hip and thigh level, right leg, subsequent encounter Protime 08/22/2020 Z51.81 Encounter for therapeutic drug l evel monitoring Protime 08/22/2020 Z79.01 detention (current) use of antic oagulants Protime 08/22/2020 S75.891D Other specified inju ry of other blood vessels at hip and thigh level, right leg, subsequent encounter Protime 08/14/2020 Z51.81 Encounter for therapeutic drug l evel monitoring Balbina Crespo [facility] 08/14/2020 Z51.81 Encounter for therapeutic drug l evel monitoring Protime 08/14/2020 S75.891D Other specified inju ry of other blood vessels at hip and thigh level, right leg, subsequent encounter Balbina Crespo [facility] 08/14/2020 S75.891D Other specified inju ry of other blood vessels at hip and thigh level, right leg, subsequent encounter [facility] 08/14/2020 Z79.01 detention (current) use of antic oagulants Balbina Crespo [facility] 08/14/2020 Z79.01 detention (current) use of antic oagulants [facility] 08/07/2020 Z51.81 Encounter for therapeutic drug l evel monitoring ELENA Lucas 08/07/2020 I10 Essential (primary) hypertension NICKY Morris JR 08/07/2020 S75.891D Other specified inju ry of other blood vessels at hip and thigh level, right leg, subsequent encounter ELENA Lucas 08/07/2020 Z79.01 detention (current) use of antic oagulants NICKY Morris JR 08/07/2020 E78.00 Pure hypercholesterolemia, unspe cified NICKY Morris JR 08/07/2020 Z51.81 Encounter for therapeutic drug l evel monitoring [facility] 08/07/2020 Z79.01 detention (current) use of antic oagulants ELENA Lucas 08/07/2020 R01.1 Cardiac murmur, unspecified [facility] NICKY Philippe JR 08/07/2020 S75.891D Other specified inju ry of other blood vessels at hip and thigh level, right leg, subsequent encounter [facility] 08/07/2020 I73.9 Peripheral vascular disease, uns pecified NICKY Morris JR 08/07/2020 I25.10 Atherosclerotic heart disease of [place] coronary artery with NICKY Morris JR 08/07/2020 E03.9 Hypothyroidism, unspecified [place] NICKY Philippe JR 08/07/2020 Z79.01 [employer] customer service (current) use of antic oagulants [facility] 08/07/2020 [...] evel monitoring ELENA Lucas 07/17/2020 Z79.01 [employer] customer service (current) use of antic oagulants [facility] 07/17/2020 Z79.01 [employer] customer service (current) use of antic oagulants ELENA Lucas 07/17/2020 S75.891D Other specified inju ry of other blood vessels at hip and thigh level, right leg, subsequent encounter [facility] 07/17/2020 S75.891D Other specified inju ry of other blood vessels at hip and thigh level, right leg, subsequent encounter ELENA Lucas 07/04/2020 Z51.81 Encounter for therapeutic drug l evel monitoring ELENA Lucas 07/04/2020 I10 Essential (primary) hypertension Sameer Tristan MD 07/04/2020 S75.891D Other specified inju ry of other blood vessels at hip and thigh level, right leg, subsequent encounter ELENA Lucas 07/04/2020 Z51.81 Encounter for therapeutic drug l evel monitoring [facility] 07/04/2020 I10 Essential (primary) hypertension ELENA Lucas 07/04/2020 S75.891D Other specified inju ry of other blood vessels at hip and thigh level, right leg, subsequent encounter [facility] 07/04/2020 Z79.01 detention (current) use of antic oagulants ELENA Lucas 07/04/2020 I10 Essential (primary) hypertension Lab Schedule 07/04/2020 Z79.01 detention (current) use of antic oagulants [facility] 07/04/2020 E78.00 Pure hypercholesterolemia, unspe cified Sameer Tristan MD 07/04/2020 E78.00 Pure hypercholesterolemia, unspe cified Lab Schedule Plan of Treatment Future Appointment(s):* 02/07/2021 8:00 am - ELENA Lucas at [facility] * 12/27/2020 8:00 am - [facility] at [facility] * 01/01/2021 8:00 am - [facility] at [facility] * 01/05/2021 11:20 am - Nurse #2 at [facility] * 01/05/2021 11:40 am - Sameer Tristan MD at [facility] 12/20/2020 - ELENA Lucas* N39.0 Urinary tract infection, site not specified * New Medication:* Nitrofurantoin Monohyd Macro 100 mg - one every 12 hours * Comments:* urinalysis positive.Urine C&S pending.He has Augmentin at home so will treat empirically with that until culture returns. * R06.02 Shortness of breath* Comments:* much improved.BMP obtained and GFR has decreased. Reviewed following the patients visit. will contact him to decrease the Furosemide to 40mg daily * E87.6 Hypokalemia* Comments:* BMP obtained, reviewed and potassium is acceptable. 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 Verbal and written instructions given. Signs and symptoms to report reviewed. No evidence of thromboembolic or bleeding events. * S41.111A Laceration without foreign body of right upper arm, initial encounter * Comments:* area cleansed with MPM wound cleanser, silvadene applied and covered with a Telfa. Adacel given. * W10.8xxA Fall (on) (from) other stairs and steps, initial encounter* Comments: * Fall prevention discussed. * Z23 Encounter for immunization Functional Status Description No Information Available Mental Status Description No Information Available Referrals Description No Information Available
--- OUTSIDE RECORDS SUMMARY | 2021-01-09 15:45 | CCD | Continuity of Care Document ---
Author Author Yovany Lucas Organization Unknown Address [address] [place] [address] [address] [place] [address] Phone [phone] Care Team Providers Care Radio Message Router Name Role Phone Sameer Tristan JR, MD AUTM Unavailable Nicolas Albert MD AUTM [phone] Dick Medina MD AUTM [phone] Servando Collins MD AUTM [phone] Clara Lagunas OD AUTM Unavailable Renetta Swanson MD AUTM [phone] Brenda Mcgraw AUTM [phone] Problems Active Problems Provider Date Anticoagulants Residential (Current) Use O nset: 01/25/1997 Injury Blood [...] SIG Qnty Indications Ordering Provide r Date Escitalopram Oxalate 5mg Tablets 1 by mouth [...] Tablets one tablet by mouth daily Unknown Prednisone 20mg Tablets 2 tablets by mouth daily for 5 days Unknown Ventolin HFA 108(90Base) mcg/Act A erosol 2 puffs four times a day as needed Unknown History Medications Nitrofurantoin Monohyd Macro 100mg Capsules one every 12 hours 14caps N39.0 Balbina Crespo, [facility] 12/20 - 12/20/2020 Clopidogrel Bisulfate 75mg Tablets Take all 4 by mouth the day before the procedure. 4tabs Col ami Tristan MD 06/29/2020 - 07/03/2020 Medications Administered in Office Medication SIG Qnty Indications Ordering Provider Date Administration Of Flu Vaccine Inj ection Balbina Crespo [facility] 12/20/2020 Immunization Adminstration,1 Vaccine/Tox oid Injection Balbina Crespo, [facility] 12/20/2020 Covid-19 vaccine, Unspecified Inj ection [...] CPT Code Status Date Vaccine Lot # 10988 Given 12/20/2020 Adacel- Tetanus Diphtheria P ertussis [id number] 90077 Given 12/20/2020 Influenza Vaccin e Quadrivalent Preser/Antibiotic Free Im Use 03362 Given 12/20/2020 Influenza Vaccin e Quadrivalent Preser/Antibiotic Free Im Use [id number] 17908 Given 12/20/2020 Adacel- Tetanus Diphtheria P ertussis 85285 Given 12/29/2019 Influenza Vaccin e Quadrivalent Preser/Antibiotic Free Im Use 39701 Given 12/28/2018 Influenza Vaccin e Quadrivalent Preser/Antibiotic Free Im Use [id number] 02431 Given 01/05/2018 Influenza Virus Vaccine, Quadrivalent ([id number]), Derived From 1 Given 12/02/2017 Shingrix U-Td Given 10/28/2017 Td(Adult)(Tetanus, Diphtheri a) unspecified 99828 Given 09/09/2017 Shingrix 37452 Given 01/01/2017 Influenza Vaccin e Quadrivalent Preser/Antibiotic Free Im Use [id number] Q2037 Given 01/16/2016 Fluvirin Virus Vaccine 14982 01 Q2037 Given 12/23/2014 Fluvirin Virus Vaccine 22716 01 35380 Given 04/29/2014 Prevnar 13 [id number] Q2037 Given 01/12/2014 Fluvirin Virus Vaccine 95463 01 94273 Given 01/23/2007 Pneumovax 23 83984 Given 08/20/2005 Tetanus/Diptheria(Td)Toxoids Preservative Free 93905 Given 07/26/1997 Pneumovax 23 [id number] Refused 12/20/2011 Fluvirin Virus Vaccine [id number] Refused 12/19/2010 Fluvirin Virus Vaccine Vital Signs Date Vital Result Comment 12/27/2020 8:19am Weight 156.00 lb 12/20/2020 7:48am BP Systolic 122 mmHg BP Diastolic 70 mmHg Heart Rate 80 /min Height 63 inches 5'3" Weight 153.00 lb O2 % BldC Oximetry 91 % BMI (Body Mass Index) 27.1 kg/m2 Results Test Acquired Date Facility Test Result H/L Range Note Laboratory test finding 12/27/2020 [facility] 1.9 Laboratory test finding 12/20/2020 [facility] 1.9 Complete Blood Count 12/20/2020 [facility] Shipping Assistant: [place] [address] [phone] WBC 11.6 x10*3/UL High 4.1 - 10.9 [...] 2.0 - 7.8 Basic Metabolic Panel 12/20/2020 [facility] Shipping Assistant: [place] [address] [phone] Glucose 108 mg/dL High 74 - 99 [...] Low >60 3 Laboratory test finding 12/20/2020 [facility] [address] [place] [address] [phone] Urine Culture FULL REPORT IN L <SEE NOTE> Normal 4 Ua Dipstick Only 12/20/2020 [facility] , Shipping Assistant: Dr Sameer [place]istan [place] [id number] [phone] Urine Color YELLOW Yellow Urine Appearance CLOUDY Abnormal Clear Urine PH 6.0 units 5.0 - 9.0 Urine Specific Whitmore 1.010 1.005 - 1.030 Urine Leukocytes LARGE Abnormal Negative Urine Blood SMALL Abnormal Negative Urine Protein 1+ Abnormal Negative -Trace Urine Glucose NEGATIVE mg/dL Negative Urine Nitrite POSITIVE Abnormal Negative Urine Ketone NEGATIVE mg/dL Negative Urine Bilirubin NEGATIVE Negative Urine Urobilinogen 0.2 mg/dL 0.2 - 1.0 Laboratory test finding 12/13/2020 [facility], Shipping Assistant: Dr Sameer [place] [address] [phone] Magnesium 1.5 mg/dL Low 1.8 - 2.4 Basic Metabolic Panel 12/13/2020 [facility] Shipping Assistant: Dr Sameer [place] [address] [phone] Glucose 120 mg/dL High 74 - 99 [...] mL/min >60 6 Complete Blood Count 12/13/2020 [facility] Shipping Assistant: Dr Sameer Tristan [place] [id number] [phone] WBC 14.4 x10*3/UL High 4.1 - 10.9 [...] [facility]In[facility] In[facility] 4.8 Laboratory test finding 12/04/2020 [facility] quintero Shipping Assistant: Dr [place] [id number] [phone] Potassium 3.9 mEq/L 3.5 - 5.1 Basic Metabolic Panel 11/30/2020 [facility] Shipping Assistant: Dr [place] [address] [phone] Glucose 94 mg/dL 74 - 99 8 [...] mL/min >60 10 Laboratory test finding 11/30/2020 [facility] Shipping Assistant: Dr [place] [address] [phone] Magnesium 1.3 mg/dL Low 1.8 - 2.4 Laboratory test finding 11/30/2020 [facility] 3.1 Complete Blood Count 10/25/2020 [facility] N[facility] Shipping Assistant: Dr Sameer [place], [place] [id number] [phone] WBC 10.3 x10*3/UL 4.1 - 10.9 RBC [...] 2.0 - 7.8 Comprehensive Chem Profile 10/25/2020 [facility] Shipping Assistant: Dr Sameer [place] [address] [phone] Glucose 100 mg/dL High 74 - 99 [...] Wi-Inr Inr 3.4 Laboratory test finding 09/05/2020 [facility] Shipping Assistant: Dr Sameer [place] [address] [phone] Magnesium 1.6 mg/dL Low 1.8 - 2.4 Basic Metabolic Panel 09/05/2020 [facility] Shipping Assistant: [place] [address] [phone] Glucose 108 mg/dL High 74 - 99 [...] mL/min >60 14 Complete Blood Count 09/05/2020 [facility] Shipping Assistant: [place] [address] [phone] WBC 12.1 x10*3/UL High 4.1 - 10.9 [...] Wi-Inr Inr 1.5 Complete Blood Count 08/07/2020 [facility] Shipping Assistant: [place] [address] [phone] WBC 10.6 x10*3/UL 4.1 - 10.9 RBC [...] 2.0 - 7.8 Basic Metabolic Panel 08/07/2020 [facility] Shipping Assistant: Dr Sameer Tristan [place], [place] [id number] [phone] Glucose 103 mg/dL High 74 - 99 [...] mL/min >60 18 Coronavirus 2019 Nasopharygeal 07/28/2020 [place] [id number] [place], [place] [id number] [phone] Coronavirus 2019 Nasopharygeal ASSAY INFORMATIO <SEE N OTE> 19 Laboratory test finding 07/17/2020 [facility] 3.2 Coronavirus 2019 Nasopharygeal 07/15/2020 [facility] [address] [place] [address] [phone] Coronavirus 2019 Nasopharygeal ASSAY INFORMATIO <SEE N OTE> 20 Laboratory test finding 07/04/2020 [facility] 2.6 Complete Blood Count 07/04/2020 [facility] Shipping Assistant: [place] [address] [phone] WBC 11.9 x10*3/UL High 4.1 - 10.9 [...] 2.0 - 7.8 Basic Metabolic Panel 07/04/2020 [facility] Shipping Assistant: [place] [address] [phone] Glucose 106 mg/dL High 74 - 99 [...] LITTLE GFR LEFT ESRD GFR <15 ON PATHOLOGY TECH 4 FULL REPORT IN LAB NOTES (eC [...] LITTLE GFR LEFT ESRD GFR <15 ON PATHOLOGY TECH 7 NOTE: RESULT VERIFIED. 8 100-125 mg/dL PRE-DIABET ES/FASTING >126 mg/dL DIABETES/FASTING 9 NOTE: RESULT VERIFIED. 10 CHRONIC KIDNEY DISEASE STAGI NG PER NKF STAGE I & II GFR >= 60 NORMAL TO MILDLY DECREASED STAGE III GFR 30-59 MODERATELY DECREASED STAGE IV GFR 15-29 SEVERELY DECREASED STAGE V GFR <15 VERY LITTLE GFR LEFT ESRD GFR <15 ON PATHOLOGY TECH 11 100-125 mg/dL PRE-DIABET ES/FASTING >126 mg/dL DIABETES/FASTING 12 CHRONIC KIDNEY DISEASE STAGI NG PER NKF STAGE I & II GFR >= 60 NORMAL TO MILDLY DECREASED STAGE III GFR 30-59 MODERATELY DECREASED STAGE IV GFR 15-29 SEVERELY DECREASED STAGE V GFR <15 VERY LITTLE GFR LEFT ESRD GFR <15 ON PATHOLOGY TECH 13 100-125 mg/dL PRE-DIABET ES/FASTING >126 mg/dL DIABETES/FASTING 14 CHRONIC KIDNEY DISEASE STAGI NG PER NKF STAGE I & II GFR >= 60 NORMAL TO MILDLY DECREASED STAGE III GFR 30-59 MODERATELY DECREASED STAGE IV GFR 15-29 SEVERELY DECREASED STAGE V GFR <15 VERY LITTLE GFR LEFT ESRD GFR <15 ON PATHOLOGY TECH 15 NOTE: RESULT VERIFIED. 16 100-125 mg/dL PRE-DIABET ES/FASTING >126 mg/dL DIABETES/FASTING 17 NOTE: RESULT VERIFIED. 18 CHRONIC KIDNEY DISEASE STAGI NG PER NKF STAGE I & II GFR >= 60 NORMAL TO MILDLY DECREASED STAGE III GFR 30-59 MODERATELY DECREASED STAGE IV GFR 15-29 SEVERELY DECREASED STAGE V GFR <15 VERY LITTLE GFR LEFT ESRD GFR <15 ON PATHOLOGY TECH 19 ASSAY INFORMATION: Real Time RT-PCR NOTE: The COVID-19 assay has been cleared by the U.S. Food and Drug Administration under the Emergency Use Authorization (EUA). [facility] are designated as high complexity laboratories by the Clinical Laboratory Improvement Amendments of 1988(CLIA) and are qualified to perform this test. Not Detected 20 ASSAY INFORMATION: Real Time RT-PCR NOTE: The COVID-19 assay has been cleared by the U.S. Food and Drug Administration under the Emergency Use Authorization (EUA). [facility] are designated as high complexity laboratories by [...] LITTLE GFR LEFT ESRD GFR <15 ON PATHOLOGY TECH Procedures Date Code Description Status 12/20/2020 99668 Office/Outpatient Established Lo w MDM 20-29 Min Completed 12/13/2020 21643 Office/Outpatient Established Mo d MDM 30-39 Min Completed 12/13/2020 41276 Office/Outpatient Established Mo d MDM 30-39 Min Completed 12/13/2020 23379 EKG/Interpretation & Report Comp leted 12/13/2020 05056 EKG/Interpretation & Report Comp leted 10/25/2020 60448 Office/Outpatient Established Mo d MDM 30-39 Min Completed 08/07/2020 36252 Office/Outpatient Established Mo d MDM 30-39 Min Completed 10/06/2013 [id number] Colonoscopy Completed 06/16/2006 [id number] Colonoscopy Completed 12/12/2005 [id number] Mammogram Completed Medical Devices Description No Information Available Encounters Type Date Location Provider Dx Diagnosis Office Visit 12/20/2020 7:40a [facility] Balbina Vincent ne, [employer] N39.0 Urinary tract infection, site not specif ied R06.02 Shortness of breath E87.6 Hypokalemia Z79.01 nursing home (current) use of a nticoagulants S41.111A Laceration w/o foreign body of right upper arm, init encntr W10.8xxA Fall (on) (from) other stair s and steps, initial encounter Z23 Encounter for immunization Office Visit 12/13/2020 3:20p [facility] 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 R79.1 Abnormal coagulation profile D72.829 Elevated white blood cell co unt, unspecified Z98.61 Coronary angioplasty status Z95.810 Presence of automatic (impla ntable) cardiac defibrillator Office Visit 10/25/2020 9:00a [facility] [place] I35.0 Nonrheumatic aortic (valve) stenosis 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 I50.22 Chronic systolic (congestive ) heart failure I44.2 Atrioventricular block, comp lete I10 Essential (primary) hyperten mena Z79.01 nursing home (current) use of a nticoagulants Z51.[address] ug level monitoring Office Visit 08/07/2020 8:40a [facility] Whitley [facility], [place] I10 Essential (primary) hyperten mena 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 E78.00 Pure [...] and graft Assessments Date Code Description Provider 12/27/2020 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 Protime 12/27/2020 S75.891D Other specified inju ry of other blood vessels at hip and thigh level, right leg, subsequent encounter Protime 12/20/2020 Z51.81 Encounter for therapeutic drug l evel monitoring ELENA Lucas 12/20/2020 Z51.81 Encounter for therapeutic drug l evel monitoring Protime 12/20/2020 Z79.01 nursing home (current) use of antic oagulants ELENA Lucas 12/20/2020 Z79.01 nursing home (current) use of antic oagulants Protime 12/20/2020 S75.891D Other specified inju ry of other blood vessels at hip and thigh level, right leg, subsequent encounter Balbina Pearl Frank, [facility] 12/20/2020 N39.0 Urinary tract infection, site no t specified Balbina Crespo, [facility] 12/20/2020 S75.891D Other specified inju ry of other blood vessels at hip and thigh level, right leg, subsequent encounter Protime 12/20/2020 R06.02 Shortness of breath Balbina Pearl Frank, [facility] 12/20/2020 E87.6 Hypokalemia Balbina Pearl Frank, [facility] 12/20/2020 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 Balbina Pearl Frank, [facility] 12/20/2020 S41.111A Laceration without f oreign body of right upper arm, initial encounter Balbina Pearl Zac [facility] 12/20/2020 W10.8xxA Fall (on) (from) other stairs an d steps, initial encounter Balbina Crespo [facility] 12/20/2020 Z23 Encounter for immunization Balbina Frank [facility] 12/13/2020 Z51.81 Encounter for therapeutic drug l evel monitoring Balbina Crespo [facility] 12/13/2020 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 Balbina Crespo [facility] 12/13/2020 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 Balbina Crespo [facility] 12/13/2020 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 Balbina Crespo [facility] 12/13/2020 E83.42 Hypomagnesemia Balbina Crespo [facility] 12/13/2020 J44.1 Chronic obstructive pulmonary disease with (acute) exacerbation Balbina Crespo [facility] 12/13/2020 Z87.891 Personal history of nicotine dep endence Balbina Crespo [facility] 12/13/2020 Z51.81 [facility]counter for therapeutic drug l [facility] S75.891D Other specified inju ry of other blood vessels at hip and thigh level, right leg, subsequent encounter Balbina Crespo [facility] 12/13/2020 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 Balbina Crespo [facility] 12/13/2020 R79.1 Abnormal coagulation profile Balbina Crespo, [facility] 12/13/2020 D72.829 Elevated white blood cell count, unspecified Balbina Crespo, [facility] 12/13/2020 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 Protime 12/13/2020 S75.891D Other specified inju ry of other blood vessels at hip and thigh level, right leg, subsequent encounter Protime 12/13/2020 Z98.61 Coronary angioplasty status Balbina Crespo, [facility] 12/13/2020 Z95.810 Presence of automatic (implantab le) cardiac defibrillator Balbina Crespo, [facility] 12/11/2020 R06.02 Shortness of breath NICKY Rodgers JR 12/04/2020 E87.6 Hypokalemia Balbina Crespo, [facility] 12/04/2020 E87.6 Hypokalemia Lab Schedule 11/30/2020 Z51.81 Encounter for therapeutic drug l evel monitoring Balbina Crespo, [facility] 11/30/2020 I10 Essential (primary) hypertension Balbina Crespo, [facility] 11/30/2020 Z79.01 nursing home (current) use of antic oagulants Balbina Crespo, [facility] 11/30/2020 Z51.81 Encounter for therapeutic drug l evel monitoring Protime 11/30/2020 S75.891D Other specified inju ry of other blood vessels at hip and thigh level, right leg, subsequent encounter Balbina Crespo [facility] 11/30/2020 Z79.01 nursing home (current) use of antic oagulants Protime 11/30/2020 I10 Essential (primary) hypertension Lab Schedule 11/30/2020 S75.891D Other specified inju ry of other blood vessels at hip and thigh level, right leg, subsequent encounter Protime 11/30/2020 E87.6 Hypokalemia Balbina Crespo, [facility] 11/30/2020 E87.6 Hypokalemia Lab Schedule 10/25/2020 Z51.81 Encounter for therapeutic drug l evel monitoring Balbina Crespo [facility] 10/25/2020 Z51.81 Encounter for therapeutic drug l evel monitoring Protime 10/25/2020 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 Balbina Crespo, [facility] 10/25/2020 Z79.01 nursing home (current) use of antic oagulants Protime 10/25/2020 S75.891D Other specified inju ry of other blood vessels at hip and thigh level, right leg, subsequent encounter Balbina Crespo, [facility] 10/25/2020 I35.0 Nonrheumatic aortic (valve) sten osis Frederick Tristan, DO 10/25/2020 S75.891D Other specified inju ry of other blood vessels at hip and thigh level, right leg, subsequent encounter Protime 10/25/2020 I25.10 Atherosclerotic heart disease of [place] coronary artery with Frederick Tristan, DO 10/25/2020 I50.22 Chronic systolic (congestive) he art failure Frederick Tristan, DO 10/25/2020 I44.2 Atrioventricular block, complete Frederick Tristan, DO 10/25/2020 I10 Essential (primary) hypertension Frederick Tristan, DO 10/25/2020 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 Frederick Tristan, DO 10/25/2020 Z51.81 Encounter for therapeutic drug l evel monitoring Frederick Tristan, DO 09/11/2020 Z51.81 Encounter for therapeutic drug l evel monitoring Balbina Crespo, [facility] 09/11/2020 Z51.81 Encounter for therapeutic drug l evel monitoring Protime 09/11/2020 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 Balbina Crespo, [facility] 09/11/2020 Z79.01 nursing home (current) use of antic oagulants Protime 09/11/2020 S75.891D Other specified inju ry of other blood vessels at hip and thigh level, right leg, subsequent encounter Balbina Crespo, [facility] 09/11/2020 S75.891D Other specified inju ry of other blood vessels at hip and thigh level, right leg, subsequent encounter Protime 09/05/2020 I10 Essential (primary) hypertension Balbina Crespo, [facility] 09/05/2020 Z51.81 Encounter for therapeutic drug l evel monitoring Balbina Crespo, [facility] 09/05/2020 E87.6 Hypokalemia Balbina Crespo, [facility] 09/05/2020 Z51.81 Encounter for therapeutic drug l evel monitoring Protime 09/05/2020 Z79.01 nursing home (current) use of antic oagulants Balbina Crespo, [facility] 09/05/2020 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 Protime 09/05/2020 S75.891D Other specified inju ry of other blood vessels at hip and thigh level, right leg, subsequent encounter Balbina Crespo, [facility] 09/05/2020 S75.891D Other specified inju ry of other blood vessels at hip and thigh level, right leg, subsequent encounter Protime 08/28/2020 Z51.81 Encounter for therapeutic drug l evel monitoring Balbina Crespo, [facility] 08/28/2020 Z51.81 Encounter for therapeutic drug l evel monitoring Protime 08/28/2020 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 Balbina Crespo, [facility] 08/28/2020 Z79.01 nursing home (current) use of antic oagulants Protime 08/28/2020 S75.891D Other specified inju ry of other blood vessels at hip and thigh level, right leg, subsequent encounter Balbina Crespo, [facility] 08/28/2020 S75.891D Other specified inju ry of other blood vessels at hip and thigh level, right leg, subsequent encounter Protime 08/22/2020 Z51.81 Encounter for therapeutic drug l evel monitoring Protime 08/22/2020 Z79.01 nursing home (current) use of antic oagulants Protime 08/22/2020 S75.891D Other specified inju ry of other blood vessels at hip and thigh level, right leg, subsequent encounter Protime 08/14/2020 Z51.81 Encounter for therapeutic drug l evel monitoring Balbina Pearl Zac, [facility] 08/14/2020 Z51.81 Encounter for therapeutic drug l evel monitoring Protime 08/14/2020 S75.891D Other specified inju ry of other blood vessels at hip and thigh level, right leg, subsequent encounter Balbina Crespo [facility] 08/14/2020 S75.891D Other specified inju ry of other blood vessels at hip and thigh level, right leg, subsequent encounter Protime 08/14/2020 Z79.01 nursing home (current) use of antic oagulants Balbina Crespo [facility] 08/14/2020 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 Protime 08/07/2020 Z51.81 Encounter for therapeutic drug l evel monitoring Balbina Crespo [facility] 08/07/2020 I10 Essential (primary) hypertension NICKY Morris JR 08/07/2020 S75.891D Other specified inju ry of other blood vessels at hip and thigh level, right leg, subsequent encounter Balbina Crespo [facility] 08/07/2020 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 NICKY Morris JR 08/07/2020 E78.00 Pure hypercholesterolemia, unspe cified NICKY Morris JR 08/07/2020 Z51.81 Encounter for therapeutic drug l evel monitoring Protime 08/07/2020 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 Balbina Crespo [facility] 08/07/2020 R01.1 Cardiac murmur, unspecified Prospere NICKY Philippe JR 08/07/2020 S75.891D Other specified inju ry of other blood vessels at hip and thigh level, right leg, subsequent encounter Protime 08/07/2020 I73.9 Peripheral vascular disease, uns pecified NICKY Morris JR 08/07/2020 I25.10 Atherosclerotic heart disease of [place] coronary artery with NICKY Morris JR 08/07/2020 E03.9 Hypothyroidism, unspecified Robe NICKY Philippe JR 08/07/2020 Z79.01 nursing home (current) use [...] l evel monitoring Balbina Crespo [facility] 07/17/2020 Z79.01 nursing home (current) use of antic oagulants Protime 07/17/2020 Z79.01 nursing home (current) use of antic oagulants Balbina Crespo [facility] 07/17/2020 S75.891D Other specified inju ry of other blood vessels at hip and thigh level, right leg, subsequent encounter Protime 07/17/2020 S75.891D Other specified inju ry of other blood vessels at hip and thigh level, right leg, subsequent encounter Balbina Crespo [employer] 07/04/2020 Z51.81 Encounter for therapeutic drug l evel monitoring Balbina Crespo [employer] [facility] 07/04/2020 I10 Essential (primary) hypertension Sameer Tristan MD 07/04/2020 S75.891D Other specified inju ry of other blood vessels at hip and thigh level, right leg, subsequent encounter ELENA Lucas 07/04/2020 Z51.81 Encounter for therapeutic drug l evel monitoring Protime 07/04/2020 I10 Essential (primary) hypertension BACILIO LucasP 07/04/2020 S75.891D Other specified inju ry of other blood vessels at hip and thigh level, right leg, subsequent encounter Protime 07/04/2020 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 * 01/05/2021 10:45 am - Jean at [facility] * 02/07/2021 8:00 am - ELENA Lucas at [facility] * 01/05/2021 11:40 am - Sameer Tristan MD at [facility] 12/20/2020 - ELENA Lucas* N39.0 [...] reviewed and potassium is acceptable. * Z79.01 nursing home (current) use of 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s* Comments:* INR completed. [...]
--- OUTSIDE RECORDS SUMMARY | 2021-01-09 15:45 | CCD | Continuity of Care Document ---
Author Author Yovany Pena Organization Unknown Address [address] [place] [address] Phone [phone] Care Team Providers [employer] Processor Name Role Phone Sameer Tristan JR, MD AUTM Unavailable Nicolas Albert MD AUTM [phone] Dick Medina MD AUTM [phone] Servando Collins MD AUTM [phone] Clara Lagunas OD AUTM Unavailable Renetta Swanson MD AUTM [phone] Brenda Mcgraw AUTM [phone] Problems Active Problems Provider Date Anticoagulants Long-Term (Current) Use O nset: 01/25/1997 Injury Blood [...] hours 14caps N39.0 Balbina Crespo, [facility] 12/20 - 12/20/2020 Medications Administered in Office Medication SIG Qnty Indications Ordering Provider Date Administration Of Flu Vaccine Inj ection Balbina Crespo [facility] 12/20/2020 Immunization Adminstration,1 Vaccine/Tox oid Injection Balbina Crespo [facility] 12/20/2020 Covid-19 vaccine, Unspecified Inj ection [...] CPT Code Status Date Vaccine Lot # [id number] Given 12/20/2020 Adacel- Tetanus Diphtheria P ertussis [id number] 14963 Given 12/20/2020 Influenza Vaccin e Quadrivalent Preser/Antibiotic Free Im Use 63108 Given 12/20/2020 Influenza Vaccin e Quadrivalent Preser/Antibiotic Free Im Use [id number] 70202 Given 12/20/2020 Adacel- Tetanus Diphtheria P ertussis 11024 Given 12/29/2019 Influenza Vaccin e Quadrivalent Preser/Antibiotic Free Im Use 69283 Given 12/28/2018 Influenza Vaccin e Quadrivalent Preser/Antibiotic Free Im Use [id number] 90000 Given 01/05/2018 Influenza Virus Vaccine, Quadrivalent (Cciiv4), Derived From 7 Given 12/02/2017 Shingrix U-Td Given 10/28/2017 Td(Adult)(Tetanus, Diphtheri a) unspecified 33993 Given 09/09/2017 Shingrix 68132 Given 01/01/2017 Influenza Vaccin e Quadrivalent Preser/Antibiotic Free Im Use 886691 Q2037 Given 01/16/2016 Fluvirin Virus Vaccine 96446 01 Q2037 Given 12/23/2014 Fluvirin Virus Vaccine 88170 01 02850 Given 04/29/2014 Prevnar 13 [id number] Q2037 Given 01/12/2014 Fluvirin Virus Vaccine 91229 01 52832 Given 01/23/2007 Pneumovax 23 15875 Given 08/20/2005 Tetanus/Diptheria(Td)Toxoids Preservative Free 22772 Given 07/26/1997 Pneumovax 23 [id number] Refused 12/20/2011 [...] Wi-Inr Inr 1.9 Complete Blood Count 12/20/2020 [facility] [employer] [employer] As[employer]er Production Line: Dr Sameer Tristan [place], [place] [id number] [phone] WBC 11.6 x10*3/UL High 4.1 - 10.9 [...] 2.0 - 7.8 Basic Metabolic Panel 12/20/2020 [facility] As[employer]er Production Line: [place] [address] [phone] Glucose 108 mg/dL High 74 - 99 [...] Low >60 3 Laboratory test finding 12/20/2020 [facility] [address] [place] [address] [phone] Urine Culture FULL REPORT IN L <SEE NOTE> Normal 4 Ua Dipstick Only 12/20/2020 [facility] Assembler Production Line: [place] [address] [phone] Urine Color YELLOW Yellow Urine Appearance CLOUDY Abnormal Clear Urine PH 6.0 units 5.0 - 9.0 Urine Specific [place] 1.010 1.005 - 1.030 Urine Leukocytes LARGE Abnormal Negative Urine Blood SMALL Abnormal Negative Urine Protein 1+ Abnormal Negative -Trace Urine Glucose NEGATIVE mg/dL Negative Urine Nitrite POSITIVE Abnormal Negative Urine Ketone NEGATIVE mg/dL Negative Urine Bilirubin NEGATIVE Negative Urine Urobilinogen 0.2 mg/dL 0.2 - 1.0 Laboratory test finding 12/13/2020 [facility] [employer] [facility] [employer] Assembler Production Line: Dr [place]er [place] [id number] [phone] Magnesium 1.5 mg/dL Low 1.8 - 2.4 Basic Metabolic Panel 12/13/2020 [facility] As[employer]er Production Line: Dr [place] [address] [phone] Glucose 120 mg/dL High 74 - 99 [...] mL/min >60 6 Complete Blood Count 12/13/2020 [facility] [employer]er Production Line: Dr Sameer [place]istan [place] [id number] [phone] WBC 14.4 x10*3/UL High 4.1 - 10.9 [...] Wi-Inr Inr 4.8 Laboratory test finding 12/04/2020 [facility] [employer] [facility] [employer] Assembler Production Line: Dr [place] [id number] [phone] Potassium 3.9 mEq/L 3.5 - 5.1 Basic Metabolic Panel 11/30/2020 [facility] As[employer]er Production Line: [place] [address] [phone] Glucose 94 mg/dL 74 - 99 8 [...] mL/min >60 10 Laboratory test finding 11/30/2020 [facility] [employer] lorri quintero Assembler Production Line: [place] [address] [phone] Magnesium 1.3 mg/dL Low 1.8 - 2.4 Laboratory test finding 11/30/2020 [facility] In[facility] 3.1 Complete Blood Count 10/25/2020 [facility] [employer] [facility] [employer] Assembler Production Line: Dr [place] [address] [phone] WBC 10.3 x10*3/UL 4.1 - 10.9 RBC [...] 2.0 - 7.8 Comprehensive Chem Profile 10/25/2020 [facility] [employer] Production Line: [place] [address] [phone] Glucose 100 mg/dL High 74 - 99 [...] Wi-Inr Inr 3.4 Laboratory test finding 09/05/2020 [facility] [employer]er Production Line: [place] [address] [phone] Magnesium 1.6 mg/dL Low 1.8 - 2.4 Basic Metabolic Panel 09/05/2020 [facility] Assembler Production Line: [place] [address] [phone] Glucose 108 mg/dL High 74 - 99 [...] mL/min >60 14 Complete Blood Count 09/05/2020 [facility] [employer]er Production Line: [place] [address] [phone] WBC 12.1 x10*3/UL High 4.1 - 10.9 [...] Wi-Inr Inr 1.5 Complete Blood Count 08/07/2020 [facility] [employer]er Production Line: Dr Sameer Tristan [place], [place] [id number] [phone] WBC 10.6 x10*3/UL 4.1 - 10.9 RBC [...] 2.0 - 7.8 Basic Metabolic Panel 08/07/2020 [facility] As[employer] Production Line: Dr Sameer Tristan [place], [place] [address] [phone] Glucose 103 mg/dL High 74 - 99 [...] mL/min >60 18 Coronavirus 2019 Nasopharygeal 07/28/[address] [id number] [phone] Coronavirus 2019 Nasopharygeal ASSAY INFORMATIO <SEE N OTE> 19 Laboratory test finding 07/17/2020 Wi-In[facility] Inr 3.2 Coronavirus 2019 Nasopharygeal 07/15/[address] [id number] [phone] Coronavirus 2019 Nasopharygeal ASSAY INFORMATIO <SEE N OTE> 20 Laboratory test finding 07/04/2020 Wi[facility]In[facility] Inr 2.6 Complete Blood Count 07/04/2020 [facility] [employer] As[employer]er Production Line: Dr [place] [address] [phone] WBC 11.9 x10*3/UL High 4.1 - 10.9 [...] 2.0 - 7.8 Basic Metabolic Panel 07/04/2020 [facility] As[employer]er Production Line: Dr [place] [address] [phone] Glucose 106 mg/dL High 74 - 99 [...] LITTLE GFR LEFT ESRD GFR <15 ON [employer]ORCYCLE [employer] OFFICER 4 FULL REPORT IN LAB NOTES (eC [...] LITTLE GFR LEFT ESRD GFR <15 ON [employer]CY[employer] OFFICER 7 NOTE: RESULT VERIFIED. 8 100-125 mg/dL PRE-DIABET ES/FASTING >126 mg/dL DIABETES/FASTING 9 NOTE: RESULT VERIFIED. 10 CHRONIC KIDNEY DISEASE STAGI NG PER NKF STAGE I & II GFR >= 60 NORMAL TO MILDLY DECREASED STAGE III GFR 30-59 MODERATELY DECREASED STAGE IV GFR 15-29 SEVERELY DECREASED STAGE V GFR <15 VERY LITTLE GFR LEFT ESRD GFR <15 ON [employer]CY[employer] OFFICER 11 100-125 mg/dL PRE-DIABET ES/FASTING >126 mg/dL DIABETES/FASTING 12 CHRONIC KIDNEY DISEASE STAGI NG PER NKF STAGE I & II GFR >= 60 NORMAL TO MILDLY DECREASED STAGE III GFR 30-59 MODERATELY DECREASED STAGE IV GFR 15-29 SEVERELY DECREASED STAGE V GFR <15 VERY LITTLE GFR LEFT ESRD GFR <15 ON [employer] OFFICER 13 100-125 mg/dL PRE-DIABET ES/FASTING >126 mg/dL DIABETES/FASTING 14 CHRONIC KIDNEY DISEASE STAGI NG PER NKF STAGE I & II GFR >= 60 NORMAL TO MILDLY DECREASED STAGE III GFR 30-59 MODERATELY DECREASED STAGE IV GFR 15-29 SEVERELY DECREASED STAGE V GFR <15 VERY LITTLE GFR LEFT ESRD GFR <15 ON [employer] OFF[employer]ER 15 NOTE: RESULT VERIFIED. 16 100-125 mg/dL PRE-DIABET ES/FASTING >126 mg/dL DIABETES/FASTING 17 NOTE: RESULT VERIFIED. 18 CHRONIC KIDNEY DISEASE STAGI NG PER NKF STAGE I & II GFR >= 60 NORMAL TO MILDLY DECREASED STAGE III GFR 30-59 MODERATELY DECREASED STAGE IV GFR 15-29 SEVERELY DECREASED STAGE V GFR <15 VERY LITTLE GFR LEFT ESRD GFR <15 ON [employer] OFF[employer]ER 19 ASSAY INFORMATION: Real Time RT-PCR NOTE: The COVID-19 assay has been cleared by the U.S. Food and Drug Administration under the Emergency Use Authorization (EUA). [facility] [facility] and [facility] are designated as high complexity laboratories by the Clinical Laboratory Improvement Amendments of 1988(CLIA) and are qualified to perform this test. Not Detected 20 ASSAY INFORMATION: Real Time RT-PCR NOTE: The COVID-19 assay has been cleared by the U.S. Food and Drug Administration under the Emergency Use Authorization (EUA). [employer] and [employer] are designated as high complexity laboratories by [...] LITTLE GFR LEFT ESRD GFR <15 ON [employer] Procedures Date Code Description Status 12/20/2020 83693 Office/Outpatient Established Lo w MDM 20-29 Min Completed 12/13/2020 37277 Office/Outpatient Established Mo d MDM 30-39 Min Completed 12/13/2020 63325 Office/Outpatient Established Mo d MDM 30-39 Min Completed 12/13/2020 21866 EKG/Interpretation & Report Comp leted 12/13/2020 93314 EKG/Interpretation & Report Comp leted 10/25/2020 10023 Office/Outpatient Established Mo d MDM 30-39 Min Completed 08/07/2020 21046 Office/Outpatient Established Mo d MDM 30-39 Min Completed 10/06/2013 [id number] Colonoscopy Completed 06/16/2006 [id number] Colonoscopy Completed 12/12/2005 [id number] Mammogram Completed Medical Devices Description No Information Available Encounters Type Date Location Provider Dx Diagnosis Office Visit 12/20/2020 7:40a [facility] Balbina Vincent ne, PRODUCT DESIGNER N39.0 Urinary tract infection, site not specif ied R06.02 Shortness of breath E87.6 Hypokalemia Z79.01 watermaster (current) use of a nticoagulants S41.111A Laceration w/o foreign body of right upper arm, init encntr W10.8xxA Fall (on) (from) other stair s and steps, initial encounter Z23 Encounter for immunization Office Visit 12/13/2020 3:20p [facility] Balbina Vincent ne, PRODUCT DESIGNER I50.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 systolic and diastolic hrt [...] ntable) cardiac defibrillator Office Visit 10/25/2020 9:00a [facility] 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 Prosper sarah Whitley JR, PA I10 Essential (primary) hyperten mena Z79.01 watermaster (current) use of a nticoagulants E78.00 Pure [...] graft Assessments Date Code Description Provider 12/27/2020 S75.891D Other specified inju ry of other blood vessels at hip and thigh level, right leg, subsequent encounter ELENA Lucas 12/27/2020 S75.891D Other specified inju ry of other blood vessels at hip and thigh level, right leg, subsequent encounter [facility] 12/27/2020 Z79.01 residential (current) use of antic oagulants ELENA Lucas 12/27/2020 Z79.01 watermaster (current) use of antic oagulants [facility] 12/27/2020 Z51.81 Encounter for therapeutic drug l evel monitoring ELENA Lucas 12/27/2020 Z51.81 Encounter for therapeutic drug l evel monitoring [facility] 12/20/2020 Z51.81 Encounter for therapeutic drug l evel monitoring ELENA Lucas 12/20/2020 Z51.81 Encounter for therapeutic drug l evel monitoring [facility] 12/20/2020 Z79.01 watermaster (current) use of antic oagulants Balbina Crespo, [facility] 12/20/2020 Z79.01 watermaster (current) use of antic oagulants [facility] 12/20/2020 S75.891D Other specified inju ry of other blood vessels at hip and thigh level, right leg, subsequent encounter Balbina Pearl Frank [facility] 12/20/2020 N39.0 Urinary tract infection, site no t specified Balbina Crespo [facility] 12/20/2020 S75.891D Other specified inju ry of other blood vessels at hip and thigh level, right leg, subsequent encounter [facility] 12/20/2020 R06.02 Shortness of breath Balbina Crespo, [facility] 12/20/2020 E87.6 Hypokalemia Balbina Kang Zac, [facility] 12/20/2020 Z79.01 residential (current) use of antic oagulants Balbina Crespo [facility] 12/20/2020 S41.111A Laceration without f oreign body of right upper arm, initial encounter Balbina Pearl Frank [facility] 12/20/2020 W10.8xxA Fall (on) (from) other stairs an d steps, initial encounter Balbina Crespo [facility] 12/20/2020 Z23 Encounter for immunization Balbina Frank, [facility] 12/13/2020 Z51.81 Encounter for therapeutic drug l evel monitoring Balbina Pearl Frank, [facility] 12/13/2020 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 Balbina Crespo [facility] 12/13/2020 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 Balbina Crespo [facility] 12/13/2020 Z79.01 watermaster (current) use of antic oagulants Balbina Crespo [facility] 12/13/2020 E83.42 Hypomagnesemia Balbina Crespo [facility] 12/13/2020 J44.1 Chronic obstructive pulmonary disease with (acute) exacerbation Balbina Crespo [facility] 12/13/2020 Z87.891 Personal history of nicotine dep endence Balbina Crespo [facility] 12/13/2020 Z51.81 Encounter for therapeutic drug l evel monitoring [facility] 12/13/2020 S75.891D Other specified inju ry of other blood vessels at hip and thigh level, right leg, subsequent encounter Balbina Crespo, [facility] 12/13/2020 Z79.01 watermaster (current) use of antic oagulants Balbina Crespo, [facility] 12/13/2020 R79.1 Abnormal coagulation profile Balbina Crespo [facility] 12/13/2020 D72.829 Elevated white blood cell count, unspecified Balbina Crespo [facility] 12/13/2020 Z79.01 watermaster (current) use of antic oagulants [facility] 12/13/2020 S75.891D Other specified inju ry of other blood vessels at hip and thigh level, right leg, subsequent encounter [facility] 12/13/2020 Z98.61 Coronary angioplasty status Balbina Crespo, [facility] 12/13/2020 Z95.810 Presence of automatic (implantab le) cardiac defibrillator Balbina Crespo [facility] 12/11/2020 R06.02 Shortness of breath NICKY Rodgers JR 12/04/2020 E87.6 Hypokalemia Balbina Crespo [facility] 12/04/2020 E87.6 Hypokalemia Lab Schedule 11/30/2020 Z51.81 Encounter for therapeutic drug l evel monitoring Balbina Crespo, [facility] 11/30/2020 I10 Essential (primary) hypertension Balbina Crespo [facility] 11/30/2020 Z79.01 residential (current) use of antic oagulants Balbina Crespo [facility] 11/30/2020 Z51.81 Encounter for therapeutic drug l evel monitoring [facility] S75.891D Other specified inju ry of other blood vessels at hip and thigh level, right leg, subsequent encounter Balbina Crespo [facility] 11/30/2020 Z79.01 residential (current) use of antic oagulants [facility] 11/30/2020 I10 Essential (primary) hypertension Lab Schedule 11/30/2020 S75.891D Other specified inju ry of other blood vessels at hip and thigh level, right leg, subsequent encounter [facility] 11/30/2020 E87.6 Hypokalemia Balbina Pearl Zac [facility] 11/30/2020 E87.6 Hypokalemia Lab Schedule 10/25/2020 Z51.81 Encounter for therapeutic drug l evel monitoring Balbina Crespo, [facility] 10/25/2020 Z51.81 Encounter for therapeutic drug l evel monitoring [facility] 10/25/2020 Z79.01 residential (current) use of antic oagulants Balbina Crespo, [facility] 10/25/2020 Z79.01 watermaster (current) use of antic oagulants [facility] 10/25/2020 S75.891D Other specified inju ry of other blood vessels at hip and thigh level, right leg, subsequent encounter Balbina Crespo, [facility] 10/25/2020 I35.0 Nonrheumatic aortic (valve) sten osis Frederick Tristan, DO 10/25/2020 S75.891D Other specified inju ry of other blood vessels at hip and thigh level, right leg, subsequent encounter [facility] 10/25/2020 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 with Frederick Tristan, DO 10/25/2020 I50.22 Chronic systolic (congestive) he art failure Frederick Tristan, DO 10/25/2020 I44.2 Atrioventricular block, complete Frederick Tristan, DO 10/25/2020 I10 Essential (primary) hypertension Frederick Tristan, DO 10/25/2020 Z79.01 watermaster (current) use of antic oagulants Frederick Tristan, DO 10/25/2020 Z51.81 Encounter for therapeutic drug l evel monitoring Frederick Tristan, DO 09/11/2020 Z51.81 Encounter for therapeutic drug l evel monitoring Balbina Crespo, [facility] 09/11/2020 Z51.81 Encounter for therapeutic drug l evel monitoring [facility] 09/11/2020 Z79.01 residential (current) use of antic oagulants Balbina Crespo, [facility] 09/11/2020 Z79.01 residential (current) use of antic oagulants [facility] 09/11/2020 S75.891D Other specified inju ry of other blood vessels at hip and thigh level, right leg, subsequent encounter Balbina Crespo [facility] 09/11/2020 S75.891D Other specified inju ry of other blood vessels at hip and thigh level, right leg, subsequent encounter [facility] 09/05/2020 I10 Essential (primary) hypertension Balbina Crespo, [facility] 09/05/2020 Z51.81 Encounter for therapeutic drug l evel monitoring Balbina Crespo, [facility] 09/05/2020 E87.6 Hypokalemia Balbina Crespo, [facility] 09/05/2020 Z51.81 Encounter for therapeutic drug l evel monitoring [facility] 09/05/2020 Z79.01 watermaster (current) use of antic oagulants Balbina Crespo, [facility] 09/05/2020 Z79.01 residential (current) use of antic oagulants [facility] 09/05/2020 S75.891D Other specified inju ry of other blood vessels at hip and thigh level, right leg, subsequent encounter Balbina Crespo [facility] 09/05/2020 S75.891D Other specified inju ry of other blood vessels at hip and thigh level, right leg, subsequent encounter [facility] 08/28/2020 Z51.81 Encounter for therapeutic drug l evel monitoring Balbina Crespo, [facility] 08/28/2020 Z51.81 Encounter for therapeutic drug l evel monitoring [facility] 08/28/2020 Z79.01 watermaster (current) use of antic oagulants Balbina Crespo, [facility] 08/28/2020 Z79.01 residential (current) use of antic oagulants [facility] 08/28/2020 S75.891D Other specified inju ry of other blood vessels at hip and thigh level, right leg, subsequent encounter Balbina Crespo [facility] 08/28/2020 S75.891D Other specified inju ry of other blood vessels at hip and thigh level, right leg, subsequent encounter [facility] 08/22/2020 Z51.81 Encounter for therapeutic drug l evel monitoring [facility] 08/22/2020 Z79.01 watermaster (current) use of antic oagulants [facility] 08/22/2020 S75.891D Other specified inju ry of other blood vessels at hip and thigh level, right leg, subsequent encounter Protime 08/14/2020 Z51.81 Encounter for therapeutic drug l evel monitoring Balbina Crespo, [facility] 08/14/2020 Z51.81 Encounter for therapeutic drug l evel monitoring [facility] 08/14/2020 S75.891D Other specified inju ry of other blood vessels at hip and thigh level, right leg, subsequent encounter Balbina Crespo [facility] 08/14/2020 S75.891D Other specified inju ry of other blood vessels at hip and thigh level, right leg, subsequent encounter Protime 08/14/2020 Z79.01 residential (current) use of antic oagulants Balbina Crespo [facility] 08/14/2020 Z79.01 residential (current) use of antic oagulants [facility] 08/07/2020 Z51.81 Encounter for therapeutic drug l evel monitoring Balbina Crespo PRODUCT DESIGNER 08/07/2020 I10 Essential (primary) hypertension NICKY Morris JR 08/07/2020 S75.891D Other specified inju ry of other blood vessels at hip and thigh level, right leg, subsequent encounter ELENA Lucas 08/07/2020 Z79.01 watermaster (current) use of antic oagulants NICKY Morris JR 08/07/2020 E78.00 Pure hypercholesterolemia, unspe cified NICKY Morris JR 08/07/2020 Z51.81 Encounter for therapeutic drug l evel monitoring [facility] 08/07/2020 Z79.01 residential (current) use of antic oagulants ELENA Lucas 08/07/2020 R01.1 Cardiac murmur, unspecified NICKY Cleveland JR 08/07/2020 S75.891D Other specified inju ry of other blood vessels at hip and thigh level, right leg, subsequent encounter [facility] 08/07/2020 I73.9 Peripheral vascular disease, uns pecified NICKY Morris JR 08/07/2020 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 with NICKY Morris JR 08/07/2020 E03.9 Hypothyroidism, unspecified NICKY Cleveland JR 08/07/2020 Z79.01 watermaster (current) use of antic oagulants Protime 08/07/2020 [...] l evel monitoring Balbina Crespo [facility] 07/17/2020 Z79.01 residential (current) use of antic oagulants Protime 07/17/2020 Z79.01 residential (current) use of antic oagulants Balbina Crespo [facility] 07/17/2020 S75.891D Other specified inju ry of other blood vessels at hip and thigh level, right leg, subsequent encounter Protime 07/17/2020 S75.891D Other specified inju ry of other blood vessels at hip and thigh level, right leg, subsequent encounter BACILIO LucasP 07/04/2020 Z51.81 Encounter for therapeutic drug l evel monitoring BACILIO LucasP 07/04/2020 I10 Essential (primary) hypertension Sameer Tristan [...] right leg, subsequent encounter [facility]time 07/04/2020 Z79.01 residential (current) use of antic oagulants ELENA Lucas 07/04/2020 I10 Essential (primary) hypertension Lab Schedule 07/04/2020 Z79.01 watermaster (current) use of antic oagulants [facility] 07/04/2020 E78.00 Pure hypercholesterolemia, unspe cified Sameer Tristan MD 07/04/2020 E78.00 Pure hypercholesterolemia, unspe cified Lab Schedule Plan of Treatment Future Appointment(s):* 01/05/2021 11:20 am - Nurse #2 at [facility] * 01/05/2021 10:45 am - Protime at [facility] * 02/07/2021 8:00 am - ELENA Lucas at [facility] * 01/05/2021 11:40 am - Sameer Tristan MD at [facility] 12/20/2020 - ELENA Lucas* N39.0 [...] reviewed and potassium is acceptable. * Z79.01 watermaster (current) use of 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s* Comments:* INR completed. [...]
--- OUTSIDE RECORDS SUMMARY | 2021-01-09 15:45 | CCD | Continuity of Care Document ---
Author Author Yovany Pena Organization Unknown Address [address] [place] [address] Phone [phone] Care Team Providers Care Promotional Marketing Agent Name Role Phone Sameer Tristan JR, MD AUTM Unavailable Nicolas Albert MD AUTM [phone] Dick Medina MD AUTM [phone] Servando Collins MD AUTM [phone] Clara Lagunas OD AUTM Unavailable Renetta Swanson MD AUTM [phone] Brenda Mcgraw AUTM [phone] Problems Active Problems Provider Date Anticoagulants Long-Term [...] Tablets 1 by mouth every day dx:272 14tacalixto Tristan MD 08/[address] [...] every 12 hours 14caps N39.0 [facility] 12/20 - 12/20/2020 Clopidogrel Bisulfate 75mg Tablets Take all 4 by mouth the day before the procedure. 4tabs Col ami Tristan MD 06/29/2020 - 07/03/2020 Amoxicillin/Clavulanate Potassium 875-125mg Tablets 1 by mouth twice a day Unknown - 12/27/2020 Medications Administered in Office Medication SIG Qnty Indications Ordering Provider Date Administration Of Flu Vaccine Inj ection [facility] 12/20/2020 Immunization Adminstration,1 Vaccine/Tox oid Injection [facility] 12/20/2020 Covid-19 vaccine, Unspecified Inj [...] MD 01/16/2016 Administration Of Flu Vaccine Inj caydenion Sameer Tristan MD 12/23/2014 Administration Of Flu Vaccine Inj caydenion Sameer Tristan MD 01/12/2014 Immunizations CPT Code Status Date Vaccine Lot # [id number] Given 12/20/2020 Adacel- Tetanus Diphtheria P ertussis [id number] 85237 Given 12/20/2020 Influenza Vaccin e Quadrivalent Preser/Antibiotic Free Im Use 97751 Given 12/20/2020 Influenza Vaccin e Quadrivalent Preser/Antibiotic Free Im Use [id number] 79654 Given 12/20/2020 Adacel- Tetanus Diphtheria P ertussis 52311 Given 12/29/2019 Influenza Vaccin e Quadrivalent Preser/Antib[place] Use 83033 Given 12/28/2018 Influenza Vaccin e Quadrivalent Preser/Antibiotic Free Im Use 297368 52939 Given 01/05/2018 Influenza Virus Vaccine, Quadrivalent ([id number]), Derived From 1 Given 12/02/2017 Shingrix U-Td Given 10/28/2017 Td(Adult)(Tetanus, Diphtheri a) unspecified 07052 Given 09/09/2017 Shingrix 27625 Given 01/01/2017 Influenza Vaccin e Quadrivalent Preser/Antibiotic Free Im Use [id number] Q2037 Given 01/16/2016 Fluvirin Virus Vaccine 45843 01 Q2037 Given 12/23/2014 Fluvirin Virus Vaccine 38517 01 07699 Given 04/29/2014 Prevnar 13 [id number] Q2037 Given 01/12/2014 Fluvirin Virus Vaccine 83694 01 66810 Given 01/23/2007 Pneumovax 23 35418 Given 08/20/2005 Tetanus/Diptheria(Td)Toxoids Preservative Free 71077 Given 07/26/1997 Pneumovax 23 [id number] Refused 12/20/2011 [...] Wi-Inr Inr 1.9 Complete Blood Count 12/20/2020 [facility] lorri quezada Risk Modeler: [place] [address] [phone] WBC 11.6 x10*3/UL High 4.1 - 10.9 [...] 2.0 - 7.8 Basic Metabolic Panel 12/20/2020 [facility] Risk Modeler: [place] [address] [phone] Glucose 108 mg/dL High 74 - 99 [...] Low >60 3 Laboratory test finding 12/20/2020 [facility] [address] [place] [address] [phone] Urine Culture FULL REPORT IN L <SEE NOTE> Normal 4 Ua Dipstick Only 12/20/2020 [facility] , Risk Modeler: Dr Sameer Tristan [place] [id number] [phone] Urine Color YELLOW Yellow Urine Appearance CLOUDY Abnormal Clear Urine PH 6.0 units 5.0 - 9.0 Urine Specific Milano 1.010 1.005 - 1.030 Urine Leukocytes LARGE Abnormal Negative Urine Blood SMALL Abnormal Negative Urine Protein 1+ Abnormal Negative -Trace Urine Glucose NEGATIVE mg/dL Negative Urine Nitrite POSITIVE Abnormal Negative Urine Ketone NEGATIVE mg/dL Negative Urine Bilirubin NEGATIVE Negative Urine Urobilinogen 0.2 mg/dL 0.2 - 1.0 Laboratory test finding 12/13/2020 [facility] Risk Modeler: [place] [address] [phone] Magnesium 1.5 mg/dL Low 1.8 - 2.4 Basic Metabolic Panel 12/13/2020 [facility] Risk Modeler: [place] [address] [phone] Glucose 120 mg/dL High 74 - 99 [...] mL/min >60 6 Complete Blood Count 12/13/2020 [facility] Risk Modeler: [place] [address] [phone] WBC 14.4 x10*3/UL High 4.1 - 10.9 [...] Wi-Inr Inr 4.8 Laboratory test finding 12/04/2020 [facility], Risk Modeler: [place] [address] [phone] Potassium 3.9 mEq/L 3.5 - 5.1 Basic Metabolic Panel 11/30/2020 [facility] Risk Modeler: [place] [address] [phone] Glucose 94 mg/dL 74 - 99 8 [...] mL/min >60 10 Laboratory test finding 11/30/2020 [facility] leon, lorri Risk Modeler: [place] [address] [phone] Magnesium 1.3 mg/dL Low 1.8 - 2.4 Laboratory test finding 11/30/2020 Wi-Inr Inr 3.1 Complete Blood Count 10/25/2020 [facility] Risk Modeler: [place] [address] [phone] WBC 10.3 x10*3/UL 4.1 - 10.9 RBC [...] 2.0 - 7.8 Comprehensive Chem Profile 10/25/2020 [facility] Risk Modeler: [place] [address] [phone] Glucose 100 mg/dL High 74 - 99 [...] Wi-Inr Inr 3.4 Laboratory test finding 09/05/2020 [facility] Risk Modeler: Dr Sameer Tristan [place], [place] [id number] [phone] Magnesium 1.6 mg/dL Low 1.8 - 2.4 Basic Metabolic Panel 09/05/2020 [facility] Risk Modeler: Dr Sameer Tristan [place], [place] [id number] [phone] Glucose 108 mg/dL High 74 - 99 [...] mL/min >60 14 Complete Blood Count 09/05/2020 [facility] Risk Modeler: Dr Sameer Tristan [place] [address] [phone] WBC 12.1 x10*3/UL High 4.1 - 10.9 [...] Wi-Inr Inr 1.5 Complete Blood Count 08/07/2020 [facility] Risk Modeler: [place] [address] [phone] WBC 10.6 x10*3/UL 4.1 - 10.9 RBC [...] 2.0 - 7.8 Basic Metabolic Panel 08/07/2020 [facility] Risk Modeler: [place] [address] [phone] Glucose 103 mg/dL High 74 - 99 [...] mL/min >60 18 Coronavirus 2019 Nasopharygeal 07/28/[address] [address] [phone] Coronavirus 2019 Nasopharygeal ASSAY INFORMATIO <SEE N OTE> 19 Laboratory test finding 07/17/2020 Wi-Inr Inr 3.2 Coronavirus 2019 Nasopharygeal 07/15/2020 [facility] [address] [place] [address] [phone] Coronavirus 2019 Nasopharygeal ASSAY INFORMATIO <SEE N OTE> 20 Laboratory test finding 07/04/2020 Wi-Inr Inr 2.6 Complete Blood Count 07/04/2020 [facility] Risk Modeler: [place] [address] [phone] WBC 11.9 x10*3/UL High 4.1 - 10.9 [...] 2.0 - 7.8 Basic Metabolic Panel 07/04/2020 [facility] Risk Modeler: [place] [address] [phone] Glucose 106 mg/dL High 74 - 99 [...] LITTLE GFR LEFT ESRD GFR <15 ON FISHING TACKLE REPAIRER 4 FULL REPORT IN LAB NOTES (eC [...] LITTLE GFR LEFT ESRD GFR <15 ON FISHING TACKLE REPAIRER 7 NOTE: RESULT VERIFIED. 8 100-125 mg/dL PRE-DIABET ES/FASTING >126 mg/dL DIABETES/FASTING 9 NOTE: RESULT VERIFIED. 10 CHRONIC KIDNEY DISEASE STAGI NG PER NKF STAGE I & II GFR >= 60 NORMAL TO MILDLY DECREASED STAGE III GFR 30-59 MODERATELY DECREASED STAGE IV GFR 15-29 SEVERELY DECREASED STAGE V GFR <15 VERY LITTLE GFR LEFT ESRD GFR <15 ON FISHING TACKLE REPAIRER 11 100-125 mg/dL PRE-DIABET ES/FASTING >126 mg/dL DIABETES/FASTING 12 CHRONIC KIDNEY DISEASE STAGI NG PER NKF STAGE I & II GFR >= 60 NORMAL TO MILDLY DECREASED STAGE III GFR 30-59 MODERATELY DECREASED STAGE IV GFR 15-29 SEVERELY DECREASED STAGE V GFR <15 VERY LITTLE GFR LEFT ESRD GFR <15 ON FISHING TACKLE REPAIRER 13 100-125 mg/dL PRE-DIABET ES/FASTING >126 mg/dL DIABETES/FASTING 14 CHRONIC KIDNEY DISEASE STAGI NG PER NKF STAGE I & II GFR >= 60 NORMAL TO MILDLY DECREASED STAGE III GFR 30-59 MODERATELY DECREASED STAGE IV GFR 15-29 SEVERELY DECREASED STAGE V GFR <15 VERY LITTLE GFR LEFT ESRD GFR <15 ON FISHING TACKLE REPAIRER 15 NOTE: RESULT VERIFIED. 16 100-125 mg/dL PRE-DIABET ES/FASTING >126 mg/dL DIABETES/FASTING 17 NOTE: RESULT VERIFIED. 18 CHRONIC KIDNEY DISEASE STAGI NG PER NKF STAGE I & II GFR >= 60 NORMAL TO MILDLY DECREASED STAGE III GFR 30-59 MODERATELY DECREASED STAGE IV GFR 15-29 SEVERELY DECREASED STAGE V GFR <15 VERY LITTLE GFR LEFT ESRD GFR <15 ON FISHING TACKLE REPAIRER 19 ASSAY INFORMATION: Real Time RT-PCR NOTE: The COVID-19 assay has been cleared by the U.S. Food and Drug Administration under the Emergency Use Authorization (EUA). [facility] and [facility] are designated as high complexity laboratories by the Clinical Laboratory Improvement Amendments of 1988(CLIA) and are qualified to perform this test. Not Detected 20 ASSAY INFORMATION: Real Time RT-PCR NOTE: The COVID-19 assay has been cleared by the U.S. Food and Drug Administration under the Emergency Use Authorization (EUA). [facility] and [facility] are designated as high complexity laboratories by [...] LITTLE GFR LEFT ESRD GFR <15 ON FISHING TACKLE REPAIRER Procedures Date Code Description Status 12/20/2020 05187 Office/Outpatient Established Lo w MDM 20-29 Min Completed 12/13/2020 02248 Office/Outpatient Established Mo d MDM 30-39 Min Completed 12/13/2020 56297 Office/Outpatient Established Mo d MDM 30-39 Min Completed 12/13/2020 18938 EKG/Interpretation & Report Comp leted 12/13/2020 49380 EKG/Interpretation & Report Comp leted 10/25/2020 27881 Office/Outpatient Established Mo d MDM 30-39 Min Completed 08/07/2020 08439 Office/Outpatient Established Mo d MDM 30-39 Min Completed 10/06/2013 [id number] Colonoscopy Completed 06/16/2006 [id number] Colonoscopy Completed 12/12/2005 [id number] Mammogram Completed Medical Devices Description No Information Available Encounters Type Date Location Provider Dx Diagnosis Office Visit 12/20/2020 7:40a [facility] Balbina Vincent ne, MANAGER OF HOUSEKEEPING N39.0 Urinary tract infection, site not specif ied R06.02 Shortness of breath E87.6 Hypokalemia Z79.01 [facility] (current) use of a nticoagulants S41.111A Laceration w/o foreign body of right upper arm, init encntr W10.8xxA Fall (on) (from) other stair s and steps, initial encounter Z23 Encounter for immunization Office Visit 12/13/2020 3:20p [facility] 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 Prosper sarah Whitley JR, PA [...] graft Assessments Date Code Description Provider 12/20/2020 Z51.81 Encounter for therapeutic drug l evel monitoring ELENA Lucas 12/20/2020 Z51.81 Encounter for therapeutic drug l evel monitoring Protime 12/20/2020 Z79.01 [facility] (current) use of antic oagulants ELENA Lucas 12/20/2020 Z79.01 [facility] (current) use of antic oagulants Protime 12/20/2020 S75.891D Other specified inju ry of other blood vessels at hip and thigh level, right leg, subsequent encounter ELENA Lucas 12/20/2020 N39.0 Urinary tract infection, site no t specified [facility] C[facility]o, [facility] 12/20/2020 S75.891D Other specified inju ry of other blood vessels at hip and thigh level, right leg, subsequent encounter Protime 12/20/2020 R06.02 Shortness of breath [facility] Crespo, [facility] 12/20/2020 E87.6 Hypokalemia [facility] Crespo, [facility] 12/20/2020 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 [facility] Crespo, [facility] 12/20/2020 S41.111A Laceration without f oreign body of right upper arm, initial encounter [facility] 12/20/2020 W10.8xxA Fall (on) (from) other stairs an d steps, initial encounter [facility] Cresp[facility], [facility] 12/20/2020 Z23 Encounter for immunization Balbina Caroline rosas Frank, [facility] 12/13/2020 Z51.81 Encounter for therapeutic drug l evel monitoring [facility] C[facility], [facility] 12/13/2020 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 [facility] Cresp[facility] 12/13/2020 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 [facility] Crespo, [facility] 12/13/2020 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 [facility] Crespo, [facility] 12/13/2020 E83.42 Hypomagnesemia [facility] C[facility] 12/13/2020 J44.1 Chronic obstructive pulmonary disease with (acute) exacerbation [facility] Cresp[facility] 12/13/2020 Z87.891 Personal history of nicotine dep endence [facility]ina Crespo, [facility] 12/13/2020 Z51.81 Encounter for therapeutic drug l evel monitoring Protime 12/13/2020 S75.891D Other specified inju ry of other blood vessels at hip and thigh level, right leg, subsequent encounter [facility] C[facility] 12/13/2020 Z79.01 [facility] (current) use of antic oagulants [facility] C[facility] 12/13/2020 R79.1 Abnormal coagulation profile [facility] C[facility] 12/13/2020 D72.829 Elevated white blood cell count, unspecified [facility] Crespo, [facility] 12/13/2020 Z79.01 [facility] (current) use of antic oagulants Protime 12/13/2020 [...] hypertension [facility] C[facility] 11/30/2020 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 [facility] Crespo, [facility] 11/30/2020 Z51.81 Encounter for therapeutic drug l evel monitoring Protime 11/30/2020 S75.891D Other specified inju ry of other blood vessels at hip and thigh level, right leg, subsequent encounter [facility] Crespo [facility] 11/30/2020 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 Protime 11/30/2020 I10 Essential (primary) hypertension Lab Schedule 11/30/2020 S75.891D Other specified inju ry of other blood vessels at hip and thigh level, right leg, subsequent encounter Protime 11/30/2020 E87.6 Hypokalemia Balbina Pearl [facility] 11/30/2020 E87.6 Hypokalemia Lab Schedule 10/25/2020 Z51.81 Encounter for therapeutic drug l evel monitoring [facility] Crespo[facility] 10/25/2020 Z51.81 Encounter for therapeutic drug l evel monitoring Protime 10/25/2020 Z79.01 [facility] (current) use of antic oagulants Balbina Pearl Zac [facility] 10/25/2020 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 Protime 10/25/2020 S75.891D Other specified inju ry of other blood vessels at hip and thigh level, right leg, subsequent encounter [facility] Crespo[facility] 10/25/2020 I35.0 Nonrheumatic aortic (valve) sten osis Altonsamantha Kun, DO 10/25/2020 S75.891D Other specified inju ry of other blood vessels at hip and thigh level, right leg, subsequent encounter Protime 10/25/2020 I25.10 Atherosclerotic heart disease of [place] coronary artery with Altonsamantha Kun, DO 10/25/2020 I50.22 Chronic systolic (congestive) he art failure Frederick Tristan, DO 10/25/2020 I44.2 Atrioventricular block, complete Frederick Tristan, DO 10/25/2020 I10 Essential (primary) hypertension Denzelkamryn Kun, DO 10/25/2020 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 Frederick Tristan, DO 10/25/2020 Z51.81 Encounter for therapeutic drug l evel monitoring Frederick Tristan, DO 09/11/2020 Z51.81 Encounter for therapeutic drug l evel monitoring [facility] C[facility] 09/11/2020 Z51.81 Encounter for therapeutic drug l evel monitoring Protime 09/11/2020 Z79.01 [facility] (current) use of antic oagulants Balbina Crespo, [facility] 09/11/2020 Z79.01 [facility] (current) use of antic [...] Crespo, [facility] 09/05/2020 E87.6 Hypokalemia [facility] C[facility] 09/05/2020 Z51.81 Encounter for therapeutic drug l evel monitoring Protime 09/05/2020 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 [facility]ina Crespo, [facility] 09/05/2020 Z79.01 [facility] (current) use of antic oagulants Protime 09/05/2020 S75.891D Other specified inju ry of other blood vessels at hip and thigh level, right leg, subsequent encounter [facility] Crespo [facility] 09/05/2020 S75.891D Other specified inju ry of other blood vessels at hip and thigh level, right leg, subsequent encounter Protime 08/28/2020 Z51.81 Encounter for therapeutic drug l evel monitoring [facility] Crespo [facility] 08/28/2020 Z51.81 Encounter for therapeutic drug l evel monitoring Protime 08/28/2020 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 [facility] Crespo [facility] 08/28/2020 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 [...] drug l evel monitoring Protime 08/22/2020 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 [...] (current) use of antic oagulants ELENA Lucas 08/14/2020 Z79.01 [facility] (current) use of antic oagulants Protime 08/07/2020 Z51.81 Encounter for therapeutic drug l evel monitoring ELENA Lucas 08/07/2020 I10 Essential (primary) hypertension NICKY Morris JR 08/07/2020 S75.891D Other specified inju ry of other blood vessels at hip and thigh level, right leg, subsequent encounter ELENA Lucas 08/07/2020 Z79.01 [facility] (current) use of antic [...] JR 08/07/2020 I25.10 Atherosclerotic heart disease of [place] coronary artery with NICKY Morris JR 08/07/2020 E03.9 Hypothyroidism, unspecified Robe NICKY Philippe JR 08/07/2020 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 (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) [...] of antic oagulants [facility] Crespo[facility] 07/17/2020 S75.891D Other specified inju ry of other blood vessels at hip and thigh level, right leg, subsequent encounter Protime 07/17/2020 S75.891D Other specified inju ry of other blood vessels at hip and thigh level, right leg, subsequent encounter Balbina Kang Zac [facility] 07/04/2020 Z51.81 Encounter for therapeutic drug l evel monitoring [facility] Crespo [facility] 07/04/2020 I10 Essential (primary) hypertension Sameer Tristan MD 07/04/2020 S75.891D Other specified inju ry of other blood vessels at hip and thigh level, right leg, subsequent encounter [facility] Crespo [facility] 07/04/2020 Z51.81 Encounter for therapeutic drug l evel monitoring Protime 07/04/2020 I10 Essential (primary) hypertension Balbina Pearl [facility] 07/04/2020 S75.891D Other specified inju ry of other blood vessels at hip and thigh level, right leg, subsequent encounter Protime 07/04/2020 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 * 01/05/2021 10:45 am - Jean at [facility] * 02/07/2021 8:00 am - ELENA Lucas at [facility] * 01/05/2021 11:40 am - Sameer Tristan MD at [facility] 12/20/2020 - ELENA Lucas* N39.0 [...] reviewed and potassium is acceptable. 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 [...]
--- OUTSIDE RECORDS SUMMARY | 2021-01-09 15:45 | CCD | Continuity of Care Document ---
Author Author Yovany Pena Organization Unknown Address [address] [place] [address] Phone [phone] Care Team Providers Care Emergency Service Worker Name Role Phone Sameer Tristan JR, MD AUTM Unavailable Nicolas Albert MD AUTM [phone] Dick Medina MD AUTM [phone] Servando Collins MD AUTM [phone] Clara Lagunas OD AUTM Unavailable Renetta Swanson MD AUTM [phone] Brenda Mcgraw AUTM [phone] Problems Active Problems Provider Date Anticoagulants Retirement [...] every 12 hours 14caps N39.0 Balbina Crespo [facility] 12/20 - 12/20/2020 Clopidogrel Bisulfate 75mg [...] MD 12/28/2018 Administration Of Flu Vaccine Inj ection Sameer Tristan MD 01/05/2018 Immunization Adminstration,1 Vaccine/Tox oid Injection Sameer Tristan MD 2017 Administration Of Flu Vaccine Inj hernan Tristan MD 01/01/2017 Administration Of Flu Vaccine Inj ection Sameer Tristan MD 01/16/2016 Administration Of Flu Vaccine Inj ection Sameer Tristan MD 12/23/2014 Administration Of Flu Vaccine Inj hernan Tristan MD 01/12/2014 Immunizations CPT Code Status Date Vaccine Lot # [id number] Given 12/20/2020 Adacel- Tetanus Diphtheria P ertussis [id number] [id number] Given 12/20/2020 Influenza Vaccin e Quadrivalent Preser/Antibiotic Free [place] Use 39840 Given 12/20/2020 Influenza Vaccin e Quadrivalent Preser/Antibiotic Free Im Use [id number] 90940 Given 12/20/2020 Adacel- Tetanus Diphtheria P ertussis 98429 Given 12/29/2019 Influenza Vaccin e Quadrivalent Preser/Antibiotic Free Im Use 47339 Given 12/28/2018 Influenza Vaccin e Quadrivalent Preser/Antibiotic Free Im Use [id number] 71742 Given 01/05/2018 Influenza Virus Vaccine, Quadrivalent (Cciiv4), Derived From 1 Given 12/02/2017 Shingrix U-Td Given 10/28/2017 Td(Adult)(Tetanus, Diphtheri a) unspecified 11447 Given 09/09/2017 Shingrix 98266 Given 01/01/2017 Influenza Vaccin e Quadrivalent Preser/Antibiotic Free Im Use 165933 Q2037 Given 01/16/2016 Fluvirin Virus Vaccine 03620 01 Q2037 Given 12/23/2014 Fluvirin Virus Vaccine 47453 01 64264 Given 04/29/2014 Prevnar 13 [id number] Q2037 Given 01/12/2014 Fluvirin Virus Vaccine 47965 01 76193 Given 01/23/2007 Pneumovax 23 60757 Given 08/20/2005 Tetanus/Diptheria(Td)Toxoids Preservative Free 27627 Given 07/26/1997 Pneumovax 23 [id number] Refused 12/20/2011 [...] H/L Range Note Complete Blood Count 12/20/2020 [facility] Refrigerator Cabinetmaker: [place] [address] [phone] WBC 11.6 x10*3/UL High 4.1 - 10.9 [...] 2.0 - 7.8 Basic Metabolic Panel 12/20/2020 [facility] Refrigerator Cabinetmaker: Dr [place] [address] [phone] Glucose 108 mg/dL High 74 - 99 [...] Low >60 3 Laboratory test finding 12/20/2020 [facility] [address] [place] [address] [phone] Urine Culture FULL REPORT IN L <SEE NOTE> Normal 4 Ua Dipstick Only 12/20/2020 [facility] Refrigerator Cabinetmaker: [place] [address] [phone] Urine Color YELLOW Yellow Urine Appearance CLOUDY Abnormal Clear Urine PH 6.0 units 5.0 - 9.0 Urine Specific Tyler 1.010 1.005 - 1.030 Urine Leukocytes LARGE Abnormal Negative Urine Blood SMALL Abnormal Negative Urine Protein 1+ Abnormal Negative -Trace Urine Glucose NEGATIVE mg/dL Negative Urine Nitrite POSITIVE Abnormal Negative Urine Ketone NEGATIVE mg/dL Negative Urine Bilirubin NEGATIVE Negative Urine Urobilinogen 0.2 mg/dL 0.2 - 1.0 Laboratory test finding 12/20/2020 [facility] 1.9 Laboratory test finding 12/13/2020 [facility] Refrigerator Cabinetmaker: [place] [address] [phone] Magnesium 1.5 mg/dL Low 1.8 - 2.4 Basic Metabolic Panel 12/13/2020 [facility] Refrigerator Cabinetmaker: [place] [address] [phone] Glucose 120 mg/dL High 74 - 99 [...] mL/min >60 6 Complete Blood Count 12/13/2020 [facility] Refrigerator Cabinetmaker: Dr [place] [address] [phone] WBC 14.4 x10*3/UL High 4.1 - 10.9 [...] Wi-Inr Inr 4.8 Laboratory test finding 12/04/2020 [facility] lorri quintero Refrigerator Cabinetmaker: Dr Sameer Trisatn [place], [place] [id number] [phone] Potassium 3.9 mEq/L 3.5 - 5.1 Basic Metabolic Panel 11/30/2020 [facility] Refrigerator Cabinetmaker: Dr Sameer Rodrigueztowvenkat [place] [id number] [phone] Glucose 94 mg/dL 74 - 99 8 [...] mL/min >60 10 Laboratory test finding 11/30/2020 [facility] l[facility] quintero Refrigerator Cabinetmaker: Dr Sameer Knappwvenkat [place] [id number] [phone] Magnesium 1.3 mg/dL Low 1.8 - 2.4 Laboratory test finding 11/30/2020 [facility] 3.1 Complete Blood Count 10/25/2020 [facility] Refrigerator Cabinetmaker: [place] [address] [phone] WBC 10.3 x10*3/UL 4.1 - 10.9 RBC [...] 2.0 - 7.8 Comprehensive Chem Profile 10/25/2020 [facility] Echevarria Refrigerator Cabinetmaker: [place] [address] [phone] Glucose 100 mg/dL High 74 - 99 [...] Wi-Inr Inr 3.4 Laboratory test finding 09/05/2020 [facility] Refrigerator Cabinetmaker: [place] [address] [phone] Magnesium 1.6 mg/dL Low 1.8 - 2.4 Basic Metabolic Panel 09/05/2020 [facility] Refrigerator Cabinetmaker: Dr [place] [address] [phone] Glucose 108 mg/dL High 74 - 99 [...] mL/min >60 14 Complete Blood Count 09/05/2020 [facility] Refrigerator Cabinetmaker: Dr Sameer [place]istan [place] [address] [phone] WBC 12.1 x10*3/UL High 4.1 - 10.9 [...] Wi-Inr Inr 1.5 Complete Blood Count 08/07/2020 [facility] Refrigerator Cabinetmaker: [place] [address] [phone] WBC 10.6 x10*3/UL 4.1 - 10.9 RBC [...] 2.0 - 7.8 Basic Metabolic Panel 08/07/2020 [facility] Refrigerator Cabinetmaker: [place] [address] [phone] Glucose 103 mg/dL High 74 - 99 [...] mL/min >60 18 Coronavirus 2019 Nasopharygeal 07/28/2020 [facility] [address] [place] [address] [phone] Coronavirus 2019 Nasopharygeal ASSAY INFORMATIO <SEE N OTE> 19 Laboratory test finding 07/17/2020 [facility] 3.2 Coronavirus 2019 Nasopharygeal 07/15/2020 [facility] [address] [place] [address] [phone] Coronavirus 2019 Nasopharygeal ASSAY INFORMATIO <SEE N OTE> 20 Laboratory test finding 07/04/2020 [facility] 2.6 Complete Blood Count 07/04/2020 [facility] Refrigerator Cabinetmaker: [place] [address] [phone] WBC 11.9 x10*3/UL High 4.1 - 10.9 [...] 2.0 - 7.8 Basic Metabolic Panel 07/04/2020 [facility] Refrigerator Cabinetmaker: [place] [address] [phone] Glucose 106 mg/dL High 74 - 99 [...] LITTLE GFR LEFT ESRD GFR <15 ON COMMERCIAL MARKETING SPECIALIST 4 FULL REPORT IN LAB NOTES (eC [...] LITTLE GFR LEFT ESRD GFR <15 ON COMMERCIAL MARKETING SPECIALIST 7 NOTE: RESULT VERIFIED. 8 100-125 mg/dL PRE-DIABET ES/FASTING >126 mg/dL DIABETES/FASTING 9 NOTE: RESULT VERIFIED. 10 CHRONIC KIDNEY DISEASE STAGI NG PER NKF STAGE I & II GFR >= 60 NORMAL TO MILDLY DECREASED STAGE III GFR 30-59 MODERATELY DECREASED STAGE IV GFR 15-29 SEVERELY DECREASED STAGE V GFR <15 VERY LITTLE GFR LEFT ESRD GFR <15 ON COMMERCIAL MARKETING SPECIALIST 11 100-125 mg/dL PRE-DIABET ES/FASTING >126 mg/dL DIABETES/FASTING 12 CHRONIC KIDNEY DISEASE STAGI NG PER NKF STAGE I & II GFR >= 60 NORMAL TO MILDLY DECREASED STAGE III GFR 30-59 MODERATELY DECREASED STAGE IV GFR 15-29 SEVERELY DECREASED STAGE V GFR <15 VERY LITTLE GFR LEFT ESRD GFR <15 ON COMMERCIAL MARKETING SPECIALIST 13 100-125 mg/dL PRE-DIABET ES/FASTING >126 mg/dL DIABETES/FASTING 14 CHRONIC KIDNEY DISEASE STAGI NG PER NKF STAGE I & II GFR >= 60 NORMAL TO MILDLY DECREASED STAGE III GFR 30-59 MODERATELY DECREASED STAGE IV GFR 15-29 SEVERELY DECREASED STAGE V GFR <15 VERY LITTLE GFR LEFT ESRD GFR <15 ON COMMERCIAL MARKETING SPECIALIST 15 NOTE: RESULT VERIFIED. 16 100-125 mg/dL PRE-DIABET ES/FASTING >126 mg/dL DIABETES/FASTING 17 NOTE: RESULT VERIFIED. 18 CHRONIC KIDNEY DISEASE STAGI NG PER NKF STAGE I & II GFR >= 60 NORMAL TO MILDLY DECREASED STAGE III GFR 30-59 MODERATELY DECREASED STAGE IV GFR 15-29 SEVERELY DECREASED STAGE V GFR <15 VERY LITTLE GFR LEFT ESRD GFR <15 ON COMMERCIAL MARKETING SPECIALIST 19 ASSAY INFORMATION: Real Time RT-PCR NOTE: The COVID-19 assay has been cleared by the U.S. Food and Drug Administration under the Emergency Use Authorization (EUA). [facility] are designated as high complexity laboratories by the Clinical Laboratory Improvement Amendments of 1988(CLIA) and are qualified to perform this test. Not Detected 20 ASSAY INFORMATION: Real Time RT-PCR NOTE: The COVID-19 assay has been cleared by the U.S. Food and Drug Administration under the Emergency Use Authorization (EUA). [facility] are designated as high complexity laboratories by [...] LITTLE GFR LEFT ESRD GFR <15 ON COMMERCIAL MARKETING SPECIALIST Procedures Date Code Description Status 12/20/2020 74701 Office/Outpatient Established Lo w MDM 20-29 Min Completed 12/13/2020 36466 Office/Outpatient Established Mo d MDM 30-39 Min Completed 12/13/2020 15543 Office/Outpatient Established Mo d MDM 30-39 Min Completed 12/13/2020 72281 EKG/Interpretation & Report Comp leted 12/13/2020 19296 EKG/Interpretation & Report Comp leted 10/25/2020 40328 Office/Outpatient Established Mo d MDM 30-39 Min Completed 08/07/2020 65387 Office/Outpatient Established Mo d MDM 30-39 Min Completed 10/06/2013 89018485 Colonoscopy Completed 06/16/2006 [id number] Colonoscopy Completed 12/12/2005 [id number] Mammogram Completed Medical Devices Description No Information Available Encounters Type Date Location Provider Dx Diagnosis Office Visit 12/20/2020 7:40a [facility] Balbina Vincent ne, MASK DESIGN ENGINEER N39.0 Urinary tract infection, site not specif ied R06.02 Shortness of breath E87.6 Hypokalemia Z79.01 FDC (current) use of a nticoagulants S41.111A Laceration w/o foreign body of right upper arm, init encntr W10.8xxA Fall (on) (from) other stair s and steps, initial encounter Z23 Encounter for immunization Office Visit 12/13/2020 3:20p [facility] 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 Prosper Whitley JR, PA I10 Essential (primary) hyperten mena Z79.01 stitcher hand (current) use of a nticoagulants E78.00 Pure [...] drug l evel monitoring Protime 12/20/2020 Z79.01 stitcher hand (current) use of antic oagulants ELENA Lucas 12/20/2020 Z79.01 FDC (current) use of antic oagulants Protime 12/20/2020 S75.891D Other specified inju ry of other blood vessels at hip and thigh level, right leg, subsequent encounter Balbina Crespo, [facility] 12/20/2020 N39.0 Urinary tract infection, site no t specified Balbina Crespo, [facility] 12/20/2020 S75.891D Other specified inju ry of other blood vessels at hip and thigh level, right leg, subsequent encounter Protime 12/20/2020 R06.02 Shortness of breath Balbina Crespo [facility] 12/20/2020 E87.6 Hypokalemia Balbina Crespo [facility] 12/20/2020 Z79.01 FDC (current) use of antic oagulants Balbina Crespo, [facility] 12/20/2020 S41.111A Laceration without f oreign body of right upper arm, initial encounter Balbina Crespo [facility] 12/20/2020 W10.8xxA Fall (on) (from) other stairs an d steps, initial encounter Balbina Crespo [facility] 12/20/2020 Z23 Encounter for immunization Balbina Velazquez rosas Zac [facility] 12/13/2020 Z51.81 Encounter for therapeutic drug l evel monitoring Balbina Crespo, [facility] 12/13/2020 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 Balbina Crespo [facility] 12/13/2020 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 Balbina Crespo [facility] 12/13/2020 Z79.01 stitcher hand (current) use of antic oagulants Balbina Crespo [facility] 12/13/2020 E83.42 Hypomagnesemia Balbina Crespo [facility] 12/13/2020 J44.1 Chronic obstructive pulmonary disease with (acute) exacerbation Balbina Crespo [facility] 12/13/2020 Z87.891 Personal history of nicotine dep endence Balbina Crespo [facility] 12/13/2020 Z51.81 Encounter for therapeutic drug l evel monitoring [facility] 12/13/2020 S75.891D Other specified inju ry of other blood vessels at hip and thigh level, right leg, subsequent encounter Balbina Crespo [facility] 12/13/2020 Z79.01 stitcher hand (current) use of antic oagulants Balbina Pearl Frank [facility] 12/13/2020 R79.1 Abnormal coagulation profile Balbina Crespo, [facility] 12/13/2020 D72.829 Elevated white blood cell count, unspecified Balbina Crespo, [facility] 12/13/2020 Z79.01 stitcher hand (current) use of antic oagulants Protime 12/13/2020 S75.891D Other specified inju ry of other blood vessels at hip and thigh level, right leg, subsequent encounter Protime 12/13/2020 Z98.61 Coronary angioplasty status Balbina Crespo, [facility] 12/13/2020 Z95.810 Presence of automatic (implantab le) cardiac defibrillator Balbina Crespo, [facility] 12/11/2020 R06.02 Shortness of breath Grady le JR, PA 12/04/2020 E87.6 Hypokalemia Balbina Crespo, [facility] 12/04/2020 E87.6 Hypokalemia Lab Schedule 11/30/2020 Z51.81 Encounter for therapeutic drug l evel monitoring Balbina Crespo, [facility] 11/30/2020 I10 Essential (primary) hypertension Balbina Crespo, [facility] 11/30/2020 Z79.01 FDC (current) use of antic oagulants Balbina Crespo, [facility] 11/30/2020 Z51.81 Encounter for therapeutic drug l evel monitoring Protime 11/30/2020 S75.891D Other specified inju ry of other blood vessels at hip and thigh level, right leg, subsequent encounter Balbina Crespo [facility] 11/30/2020 Z79.01 FDC (current) use of antic oagulants Protime 11/30/2020 I10 Essential (primary) hypertension Lab Schedule 11/30/2020 S75.891D Other specified inju ry of other blood vessels at hip and thigh level, right leg, subsequent encounter Protime 11/30/2020 E87.6 Hypokalemia Balbina Crespo [facility] 11/30/2020 E87.6 Hypokalemia Lab Schedule 10/25/2020 Z51.81 Encounter for therapeutic drug l evel monitoring Balbina Kang Zac [facility] 10/25/2020 Z51.81 Encounter for therapeutic drug l evel monitoring Protime 10/25/2020 Z79.01 stitcher hand (current) use of antic oagulants Balbina Crespo, [facility] 10/25/2020 Z79.01 stitcher hand (current) use of antic oagulants Protime 10/25/2020 [...] Protime 10/25/2020 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 with Denzelkamryn Kun, DO 10/25/2020 I50.22 Chronic systolic (congestive) he art failure Frederick Tristan, DO 10/25/2020 I44.2 Atrioventricular block, complete Frederick Tristan, DO 10/25/2020 I10 Essential (primary) hypertension Frederick Tristan, DO 10/25/2020 Z79.01 FDC (current) use of antic oagulants Frederick Tristan, DO 10/25/2020 Z51.81 Encounter for therapeutic drug l evel monitoring Frederick Tristan, DO 09/11/2020 Z51.81 Encounter for therapeutic drug l evel monitoring Balbina Crespo, [facility] 09/11/2020 Z51.81 Encounter for therapeutic drug l evel monitoring Protime 09/11/2020 Z79.01 stitcher hand (current) use of antic oagulants Balbina Crespo, [facility] 09/11/2020 Z79.01 FDC (current) use of antic oagulants Protime 09/11/2020 S75.891D Other specified inju ry of other blood vessels at hip and thigh level, right leg, subsequent encounter Balbina Crespo [facility] 09/11/2020 S75.891D Other specified [...] drug l evel monitoring Protime 09/05/2020 Z79.01 FDC (current) use of antic oagulants Balbina Crespo, [facility] 09/05/2020 Z79.01 FDC (current) use of antic oagulants Protime 09/05/2020 S75.891D Other specified inju ry of other blood vessels at hip and thigh level, right leg, subsequent encounter Balbina Crespo [facility] 09/05/2020 S75.891D Other specified inju ry of other blood vessels at hip and thigh level, right leg, subsequent encounter Protime 08/28/2020 Z51.81 Encounter for therapeutic drug l evel monitoring Balbina Crespo [facility] 08/28/2020 Z51.81 Encounter for therapeutic drug l evel monitoring Protime 08/28/2020 Z79.01 FDC (current) use of antic oagulants Balbina Crespo [facility] 08/28/2020 Z79.01 FDC (current) use of antic oagulants Protime 08/28/2020 S75.891D Other specified inju ry of other blood vessels at hip and thigh level, right leg, subsequent encounter Balbina Crespo [facility] 08/28/2020 S75.891D Other specified inju ry of other blood vessels at hip and thigh level, right leg, subsequent encounter Protime 08/22/2020 Z51.81 Encounter for therapeutic drug l evel monitoring Protime 08/22/2020 Z79.01 FDC (current) use of antic oagulants Protime 08/22/2020 S75.891D Other specified inju ry of other blood vessels at hip and thigh level, right leg, subsequent encounter Protime 08/14/2020 Z51.81 Encounter for therapeutic drug l evel monitoring Balbina Crespo [facility] 08/14/2020 Z51.81 Encounter for therapeutic drug l evel monitoring Protime 08/14/2020 S75.891D Other specified inju ry of other blood vessels at hip and thigh level, right leg, subsequent encounter Balbina Crespo [facility] 08/14/2020 S75.891D Other specified inju ry of other blood vessels at hip and thigh level, right leg, subsequent encounter Protime 08/14/2020 Z79.01 stitcher hand (current) use of antic oagulants Balbina Crespo [facility] 08/14/2020 Z79.01 stitcher hand (current) use of antic oagulants Protime 08/07/2020 Z51.81 Encounter for therapeutic drug l evel monitoring Balbina Crespo [facility] 08/07/2020 I10 Essential (primary) hypertension NICKY Morris JR 08/07/2020 S75.891D Other specified inju ry of other blood vessels at hip and thigh level, right leg, subsequent encounter Balbina Crespo [facility] 08/07/2020 Z79.01 FDC (current) use of antic oagulants NICKY Morris JR 08/07/2020 E78.00 Pure hypercholesterolemia, unspe cified NICKY Morris JR 08/07/2020 Z51.81 Encounter for therapeutic drug l evel monitoring Protime 08/07/2020 Z79.01 stitcher hand (current) use of antic oagulants Balbina Crespo [facility] 08/07/2020 R01.1 Cardiac murmur, unspecified NICKY Cleveland JR 08/07/2020 S75.891D Other specified inju ry of other blood vessels at hip and thigh level, right leg, subsequent encounter Protime 08/07/2020 I73.9 Peripheral vascular disease, uns pecified NICKY Morris JR 08/07/2020 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 with NICKY Morris JR 08/07/2020 E03.9 Hypothyroidism, unspecified Robe NICKY Philippe JR 08/07/2020 Z79.01 FDC (current) use of antic oagulants Protime 08/07/2020 I87.2 Venous insufficiency (chronic) ( peripheral) NICKY Morris JR 08/07/2020 J44.9 Chronic obstructive pulmonary di sease, unspecified NICKY Morris JR 08/07/2020 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 NICKY Morris JR 08/07/2020 Z95.5 Presence of coronary angioplasty implant and graft NICKY Morris JR 07/17/2020 Z51.81 Encounter for therapeutic drug l evel monitoring Balbina Pearl Frank, [facility] 07/17/2020 Z79.01 stitcher hand (current) use of antic oagulants Protime 07/17/2020 Z79.01 stitcher hand (current) use of antic oagulants Balbina Crespo, [facility] 07/17/2020 S75.891D Other specified inju ry of other blood vessels at hip and thigh level, right leg, subsequent encounter Protime 07/17/2020 S75.891D Other specified inju ry of other blood vessels at hip and thigh level, right leg, subsequent encounter Balbina Crespo [facility] 07/04/2020 Z51.81 Encounter for therapeutic drug l evel monitoring Balbina Crespo [facility] 07/04/2020 I10 Essential (primary) hypertension Sameer Tristan MD 07/04/2020 S75.891D Other specified inju ry of other blood vessels at hip and thigh level, right leg, subsequent encounter ELENA Lucas 07/04/2020 Z51.81 Encounter for therapeutic drug l evel monitoring Protime 07/04/2020 I10 Essential (primary) hypertension Balbina Crespo [facility] 07/04/2020 S75.891D Other specified inju ry of other blood vessels at hip and thigh level, right leg, subsequent encounter Protime 07/04/2020 Z79.01 stitcher hand (current) use of antic oagulants Balbina Crespo MASK DESIGN ENGINEER 07/04/2020 I10 Essential (primary) hypertension Lab Schedule 07/04/2020 Z79.01 stitcher hand (current) use of antic oagulants Protime 07/04/2020 E78.00 Pure hypercholesterolemia, unspe cified Sameer Tristan MD 07/04/2020 E78.00 Pure hypercholesterolemia, unspe cified Lab Schedule Plan of Treatment Future Appointment(s):* 02/07/2021 8:00 am - ELENA Lucas at [facility] * 12/27/2020 8:00 am - Jean at [facility] * 01/01/2021 8:00 am - Protime at [facility] * 01/05/2021 11:20 am - Nurse #2 at [facility] * 01/05/2021 11:40 am - Sameer Tristan MD at [facility] 12/20/2020 - ELENA Lucas* N39.0 [...] reviewed and potassium is acceptable. * Z79.01 stitcher hand (current) use of 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s* Comments:* INR completed. [...]
--- OUTSIDE RECORDS SUMMARY | 2021-01-09 15:49 | CCD ---
Author Author [facility] Organization [facility] Address Unknown Phone Unavailable Care Team Providers Care Second Language Tutor Name Role Phone El-Khally, A Ziad MD Unavailable Unavailable El-Khally, A Ziad MD Unavailable Unavailable El-Khally, A Ziad MD Unavailable Unavailable El-Khally, A Ziad MD Unavailable Unavailable El-Khally, A Ziad MD Unavailable Unavailable El-Khally, A Ziad MD Unavailable Unavailable El-Khally, A Ziad MD Unavailable Unavailable El-Khally, A Ziad MD Unavailable Unavailable El-Khally, A Ziad MD Unavailable Unavailable El-Khally, A Ziad MD Unavailable Unavailable El-Khally, A Ziad MD Unavailable Unavailable El-Khally, A Ziad MD Unavailable Unavailable El-Khally, A Ziad MD Unavailable Unavailable El-Khally, A Ziad MD Unavailable Unavailable El-Khally, A Ziad MD Unavailable Unavailable El-Khally, A Ziad MD Unavailable Unavailable El-Khally, A Ziad MD Unavailable Unavailable El-Khally, A Ziad MD Unavailable Unavailable El-Khally, A Ziad MD Unavailable Unavailable El-Khally, A Ziad MD Unavailable Unavailable El-Khally, A Ziad MD Unavailable Unavailable El-Khally, A Ziad MD Unavailable Unavailable El-Khally, A Ziad MD Unavailable Unavailable El-Khally, A Ziad MD Unavailable Unavailable El-Khally, A Ziad MD Unavailable Unavailable El-Khally, A Ziad MD Unavailable Unavailable El-Khally, A Ziad MD Unavailable Unavailable El-Khally, A Ziad MD Unavailable Unavailable El-Khally, A Ziad MD Unavailable Unavailable El-Khally, A Ziad MD Unavailable Unavailable El-Khally, A Ziad MD Unavailable Unavailable El-Khally, A Ziad MD Unavailable Unavailable El-Khally, A Ziad MD Unavailable Unavailable El-Khally, A Ziad MD Unavailable Unavailable El-Khally, A Ziad MD Unavailable Unavailable El-Khally, A Ziad MD Unavailable Unavailable El-Khally, A Ziad MD Unavailable Unavailable El-Khally, A Ziad MD Unavailable Unavailable El-Khally, A Ziad MD Unavailable Unavailable El-Khally, A Ziad MD Unavailable Unavailable El-Khally, A Ziad MD Unavailable Unavailable El-Khally, A Ziad MD Unavailable Unavailable El-Khally, A Zijenn MD Unavailable Unavailable Caroline Martinez MD Unavailable Unavailable Caroline Martinez MD Unavailable Unavailable Caroline Martinez MD Unavailable Unavailable Caroline Martinez MD Unavailable Unavailable Caroline Martinez MD Unavailable Unavailable Caroline Martinez MD Unavailable Unavailable Caroline Martinez MD Unavailable Unavailable Caroline Martinez MD Unavailable Unavailable Caroline Martinez MD Unavailable Unavailable Caroline Martinez MD Unavailable Unavailable Caroline Martinez MD Unavailable Unavailable Caroline Martinez MD Unavailable Unavailable Caroline Martinez MD Unavailable Unavailable Caroline Martinez MD Unavailable Unavailable Caroline Martinez MD Unavailable Unavailable Caroline Martinez MD Unavailable Unavailable Caroline Martinez MD Unavailable Unavailable Caroline Martinez MD Unavailable Unavailable Caroline Martinez MD Unavailable Unavailable Caroline Martinez MD Unavailable Unavailable Caroline Martinez MD Unavailable Unavailable Caroline Martinez MD Unavailable Unavailable Caroline Martinez MD Unavailable Unavailable Caroline Martinez MD Unavailable Unavailable Caroline Martinez MD Unavailable Unavailable Caroline Martinez MD Unavailable Unavailable Caroline Martinez MD Unavailable Unavailable Caroline Martinez MD Unavailable Unavailable Caroline Martinez MD Unavailable Unavailable Caroline Martinez MD Unavailable Unavailable Caroline Martinez MD Unavailable Unavailable Caroline Martinez MD Unavailable Unavailable Caroline Martinez MD Unavailable Unavailable Caroline Martinez MD Unavailable Unavailable Caroline Martinez MD Unavailable Unavailable Caroline Martinez MD Unavailable Unavailable Caroline Martinez MD Unavailable Unavailable Caroline Martinez MD Unavailable Unavailable Caroline Martinez MD Unavailable Unavailable Caroline Martinez MD Unavailable Unavailable Caroline Martinez MD Unavailable Unavailable Caroline Martinez MD Unavailable Unavailable Caroline Martinez MD Unavailable Unavailable Caroline Martinez MD Unavailable Unavailable Stacey Tristan MD Unavailable Unavailable Stacey Tristan MD Unavailable Unavailable KunStacey MD Unavailable Unavailable KunStacey MD Unavailable Unavailable KunStacey MD Unavailable Unavailable Fort WorthStacey MD Unavailable Unavailable [place] WorthStacey MD Unavailable Unavailable [place] WorthStacey MD Unavailable Unavailable [place] WorthSatcey MD Unavailable Unavailable [place] WorthStacey MD Unavailable Unavailable KunStacey MD Unavailable Unavailable [place] WorthStacey MD Unavailable Unavailable [place]Stacey MD Unavailable Unavailable [place] WorthStacey MD Unavailable Unavailable KunStacey MD Unavailable Unavailable KunStacey MD Unavailable Unavailable KunStacey MD Unavailable Unavailable KunStacey MD Unavailable Unavailable KunStacey MD Unavailable Unavailable [place] WorthStacey MD Unavailable Unavailable KunStacey MD Unavailable Unavailable [place] WorthStacey MD Unavailable Unavailable [place] WorthStacey MD Unavailable Unavailable [place] WorthStacey MD Unavailable Unavailable [place] WorthStacey MD Unavailable Unavailable KunStacey MD Unavailable Unavailable [place] WorthStacey MD Unavailable Unavailable KunStacey MD Unavailable Unavailable KunStacey MD Unavailable Unavailable KunStacey MD Unavailable Unavailable KunStacey MD Unavailable Unavailable [place] WorthStacey MD Unavailable Unavailable [place] WorthStacey MD Unavailable Unavailable KunStacey MD Unavailable Unavailable KunStacey MD Unavailable Unavailable KunStacey MD Unavailable Unavailable Fort WorthStacey MD Unavailable Unavailable KunStacey menon MD Unavailable Unavailable KunStacey menon MD Unavailable Unavailable KunStacey MD Unavailable Unavailable KunStacey menon MD Unavailable Unavailable [place] WorthStacey MD Unavailable Unavailable [place] WorthStacey MD Unavailable Unavailable KunStacey menon MD Unavailable Unavailable Fort WorthStacey menon MD Unavailable Unavailable [place] WorthStacey menon MD Unavailable Unavailable KunStacey MD Unavailable Unavailable [place] WorthStacey MD Unavailable Unavailable [place]Stacey MD Unavailable Unavailable [place] WorthStacey MD Unavailable Unavailable KunStacey MD Unavailable Unavailable KunStacey MD Unavailable Unavailable KunStacey MD Unavailable Unavailable KunStacey MD Unavailable Unavailable Fort WorthStacey MD Unavailable Unavailable KunStacey MD Unavailable Unavailable [place] WorthStacey MD Unavailable Unavailable [place] WorthStacey MD Unavailable Unavailable [place] WorthStacey MD Unavailable Unavailable KunStacey MD Unavailable Unavailable Fort WorthStacey MD Unavailable Unavailable KunStacey MD Unavailable Unavailable KunStacey MD Unavailable Unavailable KunStacey MD Unavailable Unavailable Fort WorthStacey MD Unavailable Unavailable KunStacey MD Unavailable Unavailable [place] WorthStacey MD Unavailable Unavailable [place] WorthStacey MD Unavailable Unavailable KunStacey MD Unavailable Unavailable KunStacey MD Unavailable Unavailable KunStacey MD Unavailable Unavailable Fort WorthStacey MD Unavailable Unavailable KunStacey MD Unavailable Unavailable [place] WorthStacey MD Unavailable Unavailable [place] WorthStacey MD Unavailable Unavailable KunStacey MD Unavailable Unavailable [place] WorthStacey MD Unavailable Unavailable [place] WorthStacey MD Unavailable Unavailable [place] WorthStacey MD Unavailable Unavailable KunStacey MD Unavailable Unavailable [place] WorthStacey MD Unavailable Unavailable KunStacey MD Unavailable Unavailable [place] WorthStacey MD Unavailable Unavailable KunStacey MD Unavailable Unavailable Fort WorthStacey MD Unavailable Unavailable KunStacey MD Unavailable Unavailable KunStacey MD Unavailable Unavailable KunStacey MD Unavailable Unavailable KunStacey MD Unavailable Unavailable KunStacey MD Unavailable Unavailable KunStacey MD Unavailable Unavailable KunStacey MD Unavailable Unavailable Fort WorthStacey MD Unavailable Unavailable Fort WorthStacey menon MD Unavailable Unavailable Fort WorthStacey MD Unavailable Unavailable KunStacey MD Unavailable Unavailable KunStacey MD Unavailable Unavailable KunStacey MD Unavailable Unavailable Fort WorthStacey MD Unavailable Unavailable KunStacey MD Unavailable Unavailable Fort WorthStacey MD Unavailable Unavailable KunStacey MD Unavailable Unavailable Fort WorthStacey MD Unavailable Unavailable KunStacey MD Unavailable Unavailable Fort WorthStacey MD Unavailable Unavailable KunStacey MD Unavailable Unavailable KunStacey MD Unavailable Unavailable KunStacey MD Unavailable Unavailable Fort WorthStacey MD Unavailable Unavailable [place] WorthStacey MD Unavailable Unavailable KunStacey MD Unavailable Unavailable [place] WorthStacey MD Unavailable Unavailable [place] WorthStacey MD Unavailable Unavailable KunStacey MD Unavailable Unavailable KunStacey MD Unavailable Unavailable KunStacey MD Unavailable Unavailable [place] WorthStacey MD Unavailable Unavailable [place] WorthStacey MD Unavailable Unavailable KunStacey MD Unavailable Unavailable KunStacey MD Unavailable Unavailable Fort WorthStacey MD Unavailable Unavailable KunStacey MD Unavailable Unavailable KunStacey MD Unavailable Unavailable [place] WorthStacey MD Unavailable Unavailable [place] WorthStacey MD Unavailable Unavailable KunStacey MD Unavailable Unavailable KunStacey MD Unavailable Unavailable Fort WorthStacey MD Unavailable Unavailable KunStacey MD Unavailable Unavailable [place] WorthStacey MD Unavailable Unavailable [place] WorthStacey MD Unavailable Unavailable KunStacey MD Unavailable Unavailable KunStacey MD Unavailable Unavailable Fort WorthStacey MD Unavailable Unavailable KunStacey MD Unavailable Unavailable [place] WorthStacey MD Unavailable Unavailable [place] WorthStacey MD Unavailable Unavailable KunStacey MD Unavailable Unavailable KunStacey MD Unavailable Unavailable [place] WorthStacey MD Unavailable Unavailable [place] WorthStacey MD Unavailable Unavailable KunStacey MD Unavailable Unavailable [place] WorthStacey MD Unavailable Unavailable KunStacey MD Unavailable Unavailable [place] WorthStacey MD Unavailable Unavailable [place] WorthStacey MD Unavailable Unavailable [place] WorthStacey MD Unavailable Unavailable KunStacey MD Unavailable Unavailable [place] WorthStacey MD Unavailable Unavailable KunStacey MD Unavailable Unavailable KunStacey MD Unavailable Unavailable [place] WorthStacey MD Unavailable Unavailable [place] WorthStacey MD Unavailable Unavailable KunStacey MD Unavailable Unavailable KunStacey MD Unavailable Unavailable KunStacey MD Unavailable Unavailable [place] WorthStacey MD Unavailable Unavailable [place] WorthStacey MD Unavailable Unavailable KunStacey MD Unavailable Unavailable KunStacey MD Unavailable Unavailable [place] WorthStacey MD Unavailable Unavailable [place] WorthStacey MD Unavailable Unavailable KunStacey MD Unavailable Unavailable KunStacey MD Unavailable Unavailable KunStacey MD Unavailable Unavailable KunStacey MD Unavailable Unavailable Fort WorthStacey MD Unavailable Unavailable KunStacey MD Unavailable Unavailable KunStacey MD Unavailable Unavailable Kun, F Estrella MD Unavailable Unavailable Stacey Tristan MD Unavailable Unavailable KunStacey menon MD Unavailable Unavailable RING, K YESSY PA Unavailable Unavailable RING, K YESSY PA Unavailable Unavailable RING, K YESSY PA Unavailable Unavailable RING, K YESSY PA Unavailable Unavailable RING, K YESSY PA Unavailable Unavailable RING, K YESSY PA Unavailable Unavailable RING, K YESSY PA Unavailable Unavailable RING, K YESSY PA Unavailable Unavailable RING, K YESSY PA Unavailable Unavailable RING, K YESSY PA Unavailable Unavailable RING, K YESSY PA Unavailable Unavailable RING, K YESSY PA Unavailable Unavailable RING, K YESSY PA Unavailable Unavailable RING, K YESSY PA Unavailable Unavailable RING, K YESSY PA Unavailable Unavailable RING, K YESSY PA Unavailable Unavailable RING, K YESSY PA Unavailable Unavailable RING, K YESSY PA Unavailable Unavailable RING, K YESSY PA Unavailable Unavailable RING, K YESSY PA Unavailable Unavailable RING, K YESSY PA Unavailable Unavailable [place], Christopher DO Unavailable Unavailable Kun, Christopher DO Unavailable Unavailable Kun, Christopher DO Unavailable Unavailable [place], Christopher DO Unavailable Unavailable Kun, Christopher DO Unavailable Unavailable Kun, Christopher DO Unavailable Unavailable [place], Christopher DO Unavailable Unavailable [place], Christopher DO Unavailable Unavailable Simone Mcgrawjpatricia BENDER Unavailable Unavailable Simone Mcgrawjtech Unavailable Unavailable Simone Mcgrawjtech Unavailable Unavailable SlesarakaSimonejtech Unavailable Unavailable YurykaSimonejtech Unavailable Unavailable Yuryka Vojtech Unavailable Unavailable YurykaSimonejtech Unavailable Unavailable Slezka Vojtech MD Unavailable Unavailable Slesaraka Vojtech Unavailable Unavailable SlesarakaSimonejtech Unavailable Unavailable SlesarakaSimonejtech Unavailable Unavailable YurykaSimonejtech Unavailable Unavailable Slesaraka Vojtech Unavailable Unavailable YurykaSimonejtech Unavailable Unavailable Slezka Vojtech Unavailable Unavailable SlezkaSimonejtech Unavailable Unavailable Slezka Vojtech Unavailable Unavailable Slezka Vojtech Unavailable Unavailable Slezka Vojtech Unavailable Unavailable Slezka Vojtech MD Unavailable Unavailable Slezka Vojtech MD Unavailable Unavailable Brenda Mcgraw MD Unavailable Unavailable Brenda Mcgraw MD Unavailable Unavailable Brenda Mcgraw MD Unavailable Unavailable Brenda Mcgraw MD Unavailable Unavailable Brenda Mcgraw MD Unavailable Unavailable Brenda Mcgraw MD Unavailable Unavailable Brenda Mcgraw MD Unavailable Unavailable Brenda Mcgraw MD Unavailable Unavailable Brenda Mcgraw MD Unavailable Unavailable Brenda Mcgraw MD Unavailable Unavailable Brenda Mcgraw MD Unavailable Unavailable Brenda Mcgraw MD Unavailable Unavailable Brenda Mcgraw MD Unavailable Unavailable Brenda Mcgraw MD Unavailable Unavailable Brenda Mcgraw MD Unavailable Unavailable Brenda Mcgraw MD Unavailable Unavailable Brenda Mcgraw MD Unavailable Unavailable Brenda Mcgraw MD Unavailable Unavailable Brenda Mcgraw MD Unavailable Unavailable Brenda Mcgraw MD Unavailable Unavailable Brenda Mcgraw MD Unavailable Unavailable Brenda Mcgraw MD Unavailable Unavailable Brenda Mcgraw MD Unavailable Unavailable Brenda Mcgraw MD Unavailable Unavailable Brenda Mcgraw MD Unavailable Unavailable Brenda Mcgraw MD Unavailable Unavailable Brenda Mcgraw MD Unavailable Unavailable Brenda Mcgraw MD Unavailable Unavailable Brenda Mcgraw MD Unavailable Unavailable Brenda Mcgraw MD Unavailable Unavailable Brenda Mcgraw MD Unavailable Unavailable Brenda Mcgraw MD Unavailable Unavailable Brenda Mcgraw MD Unavailable Unavailable Brenda Mcgraw MD Unavailable Unavailable Brenda Mcgraw MD Unavailable Unavailable Brenda Mcgraw MD Unavailable Unavailable Brenda Mcgraw MD Unavailable Unavailable LePine, M Balbina THREAD CUTTER TENDER Unavailable Unavailable LePine, M Balbina THREAD CUTTER TENDER Unavailable Unavailable LePine, M Balbina THREAD CUTTER TENDER Unavailable Unavailable LePine, M Balbina THREAD CUTTER TENDER Unavailable Unavailable LePine, M Balbina THREAD CUTTER TENDER Unavailable Unavailable LePine, M Balbina THREAD CUTTER TENDER Unavailable Unavailable LePine, M Balbina THREAD CUTTER TENDER Unavailable Unavailable LePine, M Balbina THREAD CUTTER TENDER Unavailable Unavailable LePine, M Balbina THREAD CUTTER TENDER Unavailable Unavailable LePine, M Balbina THREAD CUTTER TENDER Unavailable Unavailable LePine, M Balbina THREAD CUTTER TENDER Unavailable Unavailable LePine, M Balbina THREAD CUTTER TENDER Unavailable Unavailable LePine, M Balbina THREAD CUTTER TENDER Unavailable Unavailable LePine, M Balbina THREAD CUTTER TENDER Unavailable Unavailable LePine, M Balbina THREAD CUTTER TENDER Unavailable Unavailable LePine, M Balbina THREAD CUTTER TENDER Unavailable Unavailable LePine, M Balbina THREAD CUTTER TENDER Unavailable Unavailable LePine, M Balbina THREAD CUTTER TENDER Unavailable Unavailable LePine, M Balbina THREAD CUTTER TENDER Unavailable Unavailable LePine, M Balbina THREAD CUTTER TENDER Unavailable Unavailable LePine, M Balbina THREAD CUTTER TENDER Unavailable Unavailable LePine, M Balbina THREAD CUTTER TENDER Unavailable Unavailable LePine, M Balbina THREAD CUTTER TENDER Unavailable Unavailable LePine, M Balbina THREAD CUTTER TENDER Unavailable Unavailable LePine, M Balbina THREAD CUTTER TENDER Unavailable Unavailable LePine, M Balbina THREAD CUTTER TENDER Unavailable Unavailable LePine, M Balbina THREAD CUTTER TENDER Unavailable Unavailable LePine, M Balbina THREAD CUTTER TENDER Unavailable Unavailable LePine, M Balbina THREAD CUTTER TENDER Unavailable Unavailable LePine, M Balbina THREAD CUTTER TENDER Unavailable Unavailable LePine, M Balbina THREAD CUTTER TENDER Unavailable Unavailable LePine, M Balbina THREAD CUTTER TENDER Unavailable Unavailable LePine, M Balbina THREAD CUTTER TENDER Unavailable Unavailable LePine, M Balbina THREAD CUTTER TENDER Unavailable Unavailable LePine, M Balbina THREAD CUTTER TENDER Unavailable Unavailable LePine, M Balbina THREAD CUTTER TENDER Unavailable Unavailable LePine, M Balbina THREAD CUTTER TENDER Unavailable Unavailable LePine, M Balbina THREAD CUTTER TENDER Unavailable Unavailable LePine, M Balbina THREAD CUTTER TENDER Unavailable Unavailable LePine, M Balbina THREAD CUTTER TENDER Unavailable Unavailable LePine, M Balbina THREAD CUTTER TENDER Unavailable Unavailable LePine, M Balbina THREAD CUTTER TENDER Unavailable Unavailable LePine, M Balbina THREAD CUTTER TENDER Unavailable Unavailable LePine, M Balbina THREAD CUTTER TENDER Unavailable Unavailable LePine, M Balbina THREAD CUTTER TENDER Unavailable Unavailable LePine, M Balbina THREAD CUTTER TENDER Unavailable Unavailable LePine, M Balbina THREAD CUTTER TENDER Unavailable Unavailable LePine, M Balbina THREAD CUTTER TENDER Unavailable Unavailable LePine, M Balbina THREAD CUTTER TENDER Unavailable Unavailable LePine, M Balbina THREAD CUTTER TENDER Unavailable Unavailable LePine, M Balbina THREAD CUTTER TENDER Unavailable Unavailable LePine, M Balbina THREAD CUTTER TENDER Unavailable Unavailable LePine, M Balbina THREAD CUTTER TENDER Unavailable Unavailable LePine, M Balbina THREAD CUTTER TENDER Unavailable Unavailable LePine, M Balbina THREAD CUTTER TENDER Unavailable Unavailable LePine, M Balbina THREAD CUTTER TENDER Unavailable Unavailable Kahlil, A Belinda TELECOMMUNICATIONS FIELD TECHNICIAN Unavailable Unavailable Kahlil, A Belinda TELECOMMUNICATIONS FIELD TECHNICIAN Unavailable Unavailable Kahlil, A Belinda TELECOMMUNICATIONS FIELD TECHNICIAN Unavailable Unavailable Kahlil, A Belinda TELECOMMUNICATIONS FIELD TECHNICIAN Unavailable Unavailable Kahlil, A Belinda TELECOMMUNICATIONS FIELD TECHNICIAN Unavailable Unavailable Kahlil, A Belinda TELECOMMUNICATIONS FIELD TECHNICIAN Unavailable Unavailable Kahlil, A Belinda TELECOMMUNICATIONS FIELD TECHNICIAN Unavailable Unavailable Kahlil, A Belinda TELECOMMUNICATIONS FIELD TECHNICIAN Unavailable Unavailable Kahlil, A Belinda TELECOMMUNICATIONS FIELD TECHNICIAN Unavailable Unavailable Kahlil, A Belinda TELECOMMUNICATIONS FIELD TECHNICIAN Unavailable Unavailable Kahlil, A Belinda TELECOMMUNICATIONS FIELD TECHNICIAN Unavailable Unavailable Kahlil, A Belinda TELECOMMUNICATIONS FIELD TECHNICIAN Unavailable Unavailable Kahlil, A Belinda TELECOMMUNICATIONS FIELD TECHNICIAN Unavailable Unavailable Kahlil, A Belinda TELECOMMUNICATIONS FIELD TECHNICIAN Unavailable Unavailable Kahlil, A Belinda TELECOMMUNICATIONS FIELD TECHNICIAN Unavailable Unavailable Kahlil, A Belinda TELECOMMUNICATIONS FIELD TECHNICIAN Unavailable Unavailable Kahlil, A Belinda TELECOMMUNICATIONS FIELD TECHNICIAN Unavailable Unavailable Kahlil, A Belinda TELECOMMUNICATIONS FIELD TECHNICIAN Unavailable Unavailable Kahlil, A Belinda TELECOMMUNICATIONS FIELD TECHNICIAN Unavailable Unavailable Kahlil, A Belinda TELECOMMUNICATIONS FIELD TECHNICIAN Unavailable Unavailable Kahlil, A Belinda TELECOMMUNICATIONS FIELD TECHNICIAN Unavailable Unavailable Kahlil, A Belinda TELECOMMUNICATIONS FIELD TECHNICIAN Unavailable Unavailable Kahlil, A Belinda TELECOMMUNICATIONS FIELD TECHNICIAN Unavailable Unavailable Kahlil, A Belinda TELECOMMUNICATIONS FIELD TECHNICIAN Unavailable Unavailable Kahlil, A Belinda TELECOMMUNICATIONS FIELD TECHNICIAN Unavailable Unavailable New, Anastacia IT TECHNICIAN Unavailable Unavailable New, Anastacia IT TECHNICIAN Unavailable Unavailable New, Anastacia IT TECHNICIAN Unavailable Unavailable New, Anastacia IT TECHNICIAN Unavailable Unavailable New, Anastacia IT TECHNICIAN Unavailable Unavailable New, Anastacia IT TECHNICIAN Unavailable Unavailable New, Anastacia IT TECHNICIAN Unavailable Unavailable New, Anastacia IT TECHNICIAN Unavailable Unavailable New, Anastacia IT TECHNICIAN Unavailable Unavailable New, Anastacia IT TECHNICIAN Unavailable Unavailable New, Anastacia IT TECHNICIAN Unavailable Unavailable New, Anastacia IT TECHNICIAN Unavailable Unavailable New, Anastacia IT TECHNICIAN Unavailable Unavailable LETTIERE, A TAMIKO PA Unavailable Unavailable LETTIERE, A TAMIKO PA Unavailable Unavailable LETTIERE, A TAMIKO PA Unavailable Unavailable LETTIERE, A TAMIKO PA Unavailable Unavailable LETTIERE, A TAMIKO PA Unavailable Unavailable LETTIERE, A TAMIKO PA Unavailable Unavailable LETTIERE, A TAMIKO PA Unavailable Unavailable LETTIERE, A TAMIKO PA Unavailable Unavailable LETTIERE, A TAMIKO PA Unavailable Unavailable LETTIERE, A TAMIKO PA Unavailable Unavailable LETTIERE, A TAMIKO PA Unavailable Unavailable LETTIERE, A TAMIKO PA Unavailable Unavailable LETTIERE, A TAMIKO PA Unavailable Unavailable LETTIERE, A TAMIKO PA Unavailable Unavailable LETTIERE, A TAMIKO PA Unavailable Unavailable LETTIERE, A TAMIKO PA Unavailable Unavailable LETTIERE, A TAMIKO PA Unavailable Unavailable LETTIERE, A TAMIKO PA Unavailable Unavailable LETTIERE, A TAMIKO PA Unavailable Unavailable LETTIERE, A TAMIKO PA Unavailable Unavailable LETTIERE, A TAMIKO PA Unavailable Unavailable LETTIERE, A TAMIKO PA Unavailable Unavailable LETTIERE, A TAMIKO PA Unavailable Unavailable LETTIERE, A TAMIKO PA Unavailable Unavailable LETTIERE, A TAMIKO PA Unavailable Unavailable LETTIERE, A TAMIKO PA Unavailable Unavailable LETTIERE, A TAMIKO PA Unavailable Unavailable LETTIERE, A TAMIKO PA Unavailable Unavailable LETTIERE, A TAMIKO PA Unavailable Unavailable LETTIERE, A TAMIKO PA Unavailable Unavailable LETTIERE, A TAMIKO PA Unavailable Unavailable PICKERAL JR, J JEANINE PA-C Unavailable Unavailable PICKERAL JR, J JEANINE PA-C Unavailable Unavailable PICKERAL JR, J JEANINE PA-C Unavailable Unavailable PICKERAL JR, J JEANINE PA-C Unavailable Unavailable PICKERAL JR, J JEANINE PA-C Unavailable Unavailable PICKERAL JR, J JEANINE PA-C Unavailable Unavailable PICKERAL JR, J JEANINE PA-C Unavailable Unavailable PICKERAL JR, J JEANINE PA-C Unavailable Unavailable PICKERAL JR, J JEANINE PA-C Unavailable Unavailable PICKERAL JR, J JEANINE PA-C Unavailable Unavailable PICKERAL JR, J JEANINE PA-C Unavailable Unavailable PICKERAL JR, J JEANINE PA-C Unavailable Unavailable PICKERAL JR, J JEANINE PA-C Unavailable Unavailable PICKERAL JR, J JEANINE PA-C Unavailable Unavailable PICKERAL JR, J JEANINE PA-C Unavailable Unavailable PICKERAL JR, J JEANINE PA-C Unavailable Unavailable PICKERAL JR, J JEANINE PA-C Unavailable Unavailable PICKERAL JR, J JEANINE PA-C Unavailable Unavailable PICKERAL JR, J JEANINE PA-C Unavailable Unavailable PICKERAL JR, J JEANINE PA-C Unavailable Unavailable PICKERAL JR, J JEANINE PA-C Unavailable Unavailable PICKERAL JR, J JEANINE PA-C Unavailable Unavailable PICKERAL JR, J JEANINE PA-C Unavailable Unavailable PICKERAL JR, J JEANINE PA-C Unavailable Unavailable PICKERAL JR, J JEANINE PA-C Unavailable Unavailable PICKERAL JR, J JEANINE PA-C Unavailable Unavailable PICKERAL JR, J JEANINE PA-C Unavailable Unavailable JEANINE PEPPER Unavailable Unavailable Washington, V TING PA-C Unavailable Unavailable [place], V TING PA-C Unavailable Unavailable [place], V TING PA-C Unavailable Unavailable [place], V TING PA-C Unavailable Unavailable Washington, V TING PA-C Unavailable Unavailable Estrella, V TING PA-C Unavailable Unavailable Washington, V TING PA-C Unavailable Unavailable Washington, V TING PA-C Unavailable Unavailable Washington, V TING PA-C Unavailable Unavailable Washington, V TING PA-C Unavailable Unavailable Washington, V TING PA-C Unavailable Unavailable Washington, V TING PA-C Unavailable Unavailable Washington, V TING PA-C Unavailable Unavailable Washington, V TING PA-C Unavailable Unavailable Miguel Guzman MD Unavailable Unavailable Miguel Guzman MD Unavailable Unavailable El-Khally, A Ziad MD Unavailable Unavailable El-Khally, A Ziad MD Unavailable Unavailable El-Khally, A Ziad MD Unavailable Unavailable El-Khally, A Ziad MD Unavailable Unavailable El-Khally, A Ziad MD Unavailable Unavailable El-Khally, A Ziad MD Unavailable Unavailable El-Khally, A Ziad MD Unavailable Unavailable El-Khally, A Ziad MD Unavailable Unavailable El-Khally, A Ziad MD Unavailable Unavailable El-Khally, A Ziad MD Unavailable Unavailable El-Khally, A Ziad MD Unavailable Unavailable El-Khally, A Ziad MD Unavailable Unavailable El-Khally, A Ziad MD Unavailable Unavailable El-Khally, A Ziad MD Unavailable Unavailable El-Khally, A Ziad MD Unavailable Unavailable El-Khally, A Ziad MD Unavailable Unavailable El-Khally, A Ziad MD Unavailable Unavailable El-Khally, A Ziad MD Unavailable Unavailable El-Khally, A Ziad MD Unavailable Unavailable El-Khally, A Ziad MD Unavailable Unavailable El-Khally, A Ziad MD Unavailable Unavailable El-Khally, A Ziad MD Unavailable Unavailable El-Khally, A Ziad MD Unavailable Unavailable El-Khally, A Ziad MD Unavailable Unavailable El-Khally, A Ziad MD Unavailable Unavailable El-Khally, A Ziad MD Unavailable Unavailable El-Khally, A Ziad MD Unavailable Unavailable El-Khally, A Ziad MD Unavailable Unavailable El-Khally, A Ziad MD Unavailable Unavailable El-Khally, A Ziad MD Unavailable Unavailable El-Khally, A Ziad MD Unavailable Unavailable El-Khally, A Ziad MD Unavailable Unavailable El-Khally, A Ziad MD Unavailable Unavailable El-Khally, A Ziad MD Unavailable Unavailable El-Khally, A Ziad MD Unavailable Unavailable El-Khally, A Ziad MD Unavailable Unavailable El-Khally, A Ziad MD Unavailable Unavailable El-Khally, A Ziad MD Unavailable Unavailable El-Khally, A Ziad MD Unavailable Unavailable El-Khally, A Ziad MD Unavailable Unavailable El-Khally, A Ziad MD Unavailable Unavailable Re-disclosure Warning The records that you are about to access may contain information from federally-assisted alcohol or drug abuse programs. If such information is present, then the following federally mandated warning applies: This information has been disclosed to you from records protected by federal confidentiality rules (42 CFR part 2). The federal rules prohibit you from making any further disclosure of this information unless further disclosure is expressly permitted by the written consent of the person to whom it pertains or as otherwise permitted by 42 CFR part 2. A general authorization for the release of medical or other information is NOT sufficient for this purpose. The Federal rules restrict any use of the information to criminally investigate or prosecute any alcohol or drug abuse patient.The records that you are about to access may contain highly sensitive health information, the redisclosure of which is protected by Article 27-F of the [facility] Public Health law. If you continue you may have access to information: Regarding HIV / AIDS; Provided by facilities licensed or operated by the [facility] Office of Mental Health; or Provided by the [facility] Office for People With Developmental Disabilities. If such information is present, then the following [facility] mandated warning applies: This information has been disclosed to you from confidential records which are protected by state law. State law prohibits you from making any further disclosure of this information without the specific written consent of the person to whom it pertains, or as otherwise permitted by law. Any unauthorized further disclosure in violation of state law may result in a fine or penitentiary sentence or both. A general authorization for the release of medical or other information is NOT sufficient authorization for further disc losure. Allergies and Adverse Reactions Type Description Substance Reaction Status Data Source(s ) Propensity to adverse reactions FISH-DERIVED PRODUCTS Fish-Deriv ed Products Facial Swelling High Swelling High Active [facility] High High Family History Family Member Name Family Member Gender Family Member Status Date o f Status Description Data Source(s) Unknown Female Problem [facility] ([facility]) Unknown Female Problem [facility] ([facility]) Unknown Female Problem [facility] ([facility]) Unknown Female Problem [facility] ([facility]) Encounters Encounter Providers Location Date Indications Data Source(s ) Outpatient Attender: Balbina Prado 01/03 11:40:00 AM EDT [facility] ([facility] ) Outpatient Attender: Balbina Prado 12/20 07:40:00 AM EDT [facility] ([facility] ) Outpatient Attender: Balbina Prado 12/13 03:20:00 PM EDT [facility] ([facility] ) Outpatient Attender: YESSY Brown 12/11/2020 01:35:00 PM EDT [facility] ([facility]) Outpatient SJP.CT-[email or web address] 11/20/2020 04:43:18 PM EDT [facility] Outpatient Referrer: Renetta YOST.ALAN-SJP.ALAN 10/24 12:00:00 AM EDT [facility] Outpatient SJP.ALAN-SJP 11/09/2020 03:47:41 PM EDT [facility] Outpatient Attender: Brenda YOST.ALAN-SJP.ALAN 10/22 12:58:50 PM EDT - 11/09/2020 01:56:38 PM EDT [facility] Outpatient SJP.[email or web address].ALAN 11/09/2020 12:00:00 AM EDT [facility] Outpatient Attender: Frederick Plascencia 10/25/2020 09:00:00 AM EDT [facility] ([facility] ) Outpatient Attender: TING HOUSTONALAN-SJP.ALAN 12:00:00 AM EDT - 10/18/2020 08:01:39 AM EDT [facility] Outpatient [id number] 10/10/2020 01:15:31 PM EDT [facility] Inpatient Admitter: Renetta Guzman MDReferrer: JEANINE RED ES1-SJ.ANES 10/09/2020 10:09:57 AM EDT [facility] Inpatient Attender: Renetta Guzman MDAdmitter: Renetta garcia MD [id number] 10/09/2020 09:09:00 AM EDT - 10/11/2020 03:56:00 PM EDT [facility] Patient discharged. Outpatient Attender: Renetta Guzman MDReferrer: Renetta garcia MD MOB-[email or web address].PAT 10/04/2020 07:42:00 AM EDT - 10/04/2020 09:07:31 AM EDT [facility] Outpatient Attender: Brenda YOST.ALAN-SJP.ALAN 10/2020 12:00:00 AM EDT - 09/28/2020 03:21:25 PM EDT [facility] Outpatient Attender: Alonso Martinez MD ES1-SJ.CRD 09/06 11:31:40 AM EDT - 09/06/2020 11:59:00 PM EDT [facility] Patient discharged. Outpatient Attender: TAMIKO kidd 09/04/2020 01:30:00 PM EDT [facility] ([facility]) Outpatient Referrer: Renetta Guzman MD 08/31/2020 12:40:50 PM EDT [facility] Outpatient Referrer: Renetta Guzman MD 08/31/2020 12:39:01 PM EDT [facility] Outpatient Referrer: Renetta Guzman MD 08/31/2020 08:59:26 AM EDT [facility] Outpatient Attender: Anastacia evans 08/23/2020 11:45:00 AM EDT [facility] ([facility]) Outpatient Attender: TING YOST.ALAN-SJP.ALAN 03:10:48 PM EDT - 08/10/2020 04:08:59 PM EDT [facility] Outpatient SJJerad.ALAN-SJP 08/09/2020 08:39:42 PM EDT [facility] Outpatient Referrer: Brenda YOST.ALAN-SJP.ALAN 07/22 11:02:05 AM EDT [facility] Outpatient Attender: JEANINE Prado 0 08/07/2020 08:40:00 AM EDT [facility] ([facility] ) Outpatient Attender: Renetta Guzman MDA dmitter: Renetta Guzman MDReferrer: Belinda Kahlil FNP ES1-SJ.CVAU 08/02/2020 06:44:00 AM EDT - 08/02/2020 04:55:00 PM EDT [facility] Patient discharged. Outpatient Attender: Brenda Mcgraw MDReferrer: Babatunde YOST.ALAN-SJP.ALAN 07/25/2020 11:10:59 AM EDT - 07/25/2020 12:28:55 PM EDT [facility] Outpatient Attender: Renetta Guzman MDA dmitter: Renetta Guzman MDReferrer: Renetta Guzman MD ES1-SJ.ECH 07/20/2020 12:46:45 PM EDT - 07/20/2020 11:59:00 PM EDT [facility] Patient discharged. Inpatient Attender: Renetta Guzman MDAdmitter: Renetta garcia MD [id number] 07/20/2020 07:38:00 AM EDT - 07/21/2020 06:14:00 PM EDT [facility] Patient discharged. Outpatient SHARONSJJerad 06/23/2020 04:17:57 PM EDT [facility] Outpatient Referrer: Sameer YOST.ALAN-DALEP.ALAN 03/2020 12:00:00 AM EDT [facility] Outpatient Attender: Sameer Prado 1 05/11/2019 08:40:00 AM EST [facility] ([facility] ) Immunizations Vaccine Date Status Description Data Source(s) Influenza, injectable, MDCK, preservative free, hlaina valent 12/20/2020 01:19:00 PM EDT completed [facility] Tdap 12/20/2020 01:16:00 PM EDT completed M [facility] ([facility]) Tdap 12/20/2020 01:11:00 PM EDT completed M [facility] ([facility]) Influenza, injectable, MDCK, preservative free, halina valent 12/20/2020 01:09:00 PM EDT completed [facility] COVID-19 VACCINE Moderna 07/26/2020 12:00:00 AM EDT completed [facility] Vaccine Series Complete: YESThis Data wa s Submitted to [facility] Via [facility]. COVID-19 VACC,MRNA(MODERNA)/PF 07/26/2020 12:00:00 AM EDT completed [facility] COVID-19 VACCINE Moderna 06/24/2020 12:00:00 AM EDT completed [facility] Vaccine Series Complete: NOThis Data was Submitted to [facility] Via [facility]. COVID-19 VACCINE, MRNA-1273, LNP-S (MODERNA)/PF 06/24/2020 1 2:00:00 AM EDT completed [facility] Influenza, injectable, MDCK, preservative free, halina valent 12/29/2019 08:05:00 AM EDT completed [facility] ([facility]) Influenza, injectable, MDCK, preservative free, halina valent 12/29/2019 12:00:00 AM EDT completed [facility] ([facility]) Medications Medication Brand Name Start Date Product Form Dose Route Admi nistrative Instructions Pharmacy Instructions Status Indications Reaction Description Data Source(s) Alprazolam 0.25 MG Oral Tablet ALPRAZOLAM 01/03/2021 12:00:00 AM EDT tablet 14 TAKE ONE TABLET BY MOUTH TWO TIMES A DAY NEEDED FOR ANXIETY, MAXIMUM DAILY DOSE = 2 TAKE ONE TABLET BY MOUTH TWO TIMES A DAY NEEDED FOR ANXIETY, MAXIMUM DAILY DOSE = 2 SOLD: 01/04/2021 [facility] Alprazolam 0.25 MG Oral Tablet Alprazolam 01/03/2021 12:00:00 AM EDT active [facility] ([facility]) Escitalopram 5 MG Oral Tablet ESCITALOPRAM OXALATE 12/22/2020 12 :00:00 AM EDT tablet 30 TAKE ONE TABLET BY MOUTH EVERY D AY TAKE ONE TABLET BY MOUTH EVERY DAY SOLD: 12/23/2020 [facility] 60 ACTUAT Fluticasone propionate 0.25 MG /ACTUAT / salmeterol 0.05 MG/ACTUAT Dry Powder Inhaler [Advair] 250-50 mcg/dose FLUTICASONE PROPION/SALMETEROL 12/22/2020 12:00:00 AM EDT blister with device 60 I NHALE ONE PUFF BY MOUTH TWO TIMES A DAY INHALE ONE PUFF BY MOUTH TWO TIMES A DAY SOLD: 12/23/2020 [facility] Escitalopram 5 MG Oral Tablet Escitalopram Oxalate 12/22/2020 12:00 :00 AM EDT ORAL active [facility] ([facility]) NITROFURANTOIN, MACROCRYSTALS 25 MG / Ni trofurantoin, Monohydrate 75 MG Oral Capsule Nitrofurantoin Monohyd Macro 12/20/2020 12:00:00 AM EDT completed [facility] ([facility]) Administration Of Flu Vaccine 12/20/2020 12:00:00 AM EDT completed [facility] ([facility]) Medication administered onsite Immunization Adminstration,1 Vaccine/Toxoid 12/20/2020 12:00 :00 AM EDT completed [facility] ([facility]) Medication administered onsite 10 mg 12/11/2020 12:00:00 AM EDT tablet 8 TAKE ONE TABLET BY MOUTH TWICE A DAY FOR 4 DAYS TAKE ONE TABLET BY MOUTH TWICE A DAY FOR 4 DAYS SOLD: 2020 [facility] Albuterol 0.83 MG/ML Inhalant Solution Albuterol Sulfate 0 12/11/2020 12:00:00 AM EDT ORAL active [facility] ([facility]) Prednisone 10 MG Oral Tablet Prednisone 12/11/2020 12:00:00 AM EDT ORAL active [facility] ([facility]) Amoxicillin 875 MG / Clavulanate 125 MG Oral Tablet Am oxicillin/Clavulanate Potassium 12/11/2020 12:00:00 AM EDT ORAL active [facility] ([facility]) Amoxicillin 875 MG / Clavulanate 125 MG Oral Tablet 87 5-125 mg AMOXICILLIN/POTASSIUM CLAV 12/11/2020 12:00:00 AM EDT tablet 20 TAKE ONE TABLET BY MOUTH TWICE A DAY FOR 10 DAYS TAKE ONE TABLET BY MOUTH TWICE A DAY FOR 10 DAYS SOLD: 12/12/2020 [facility] 10 mEq 12/01/2020 12:00:00 AM EDT tablet,ER particles/cry stals 60 TAKE TWO TABLETS BY MOUTH THREE TIMES A DAY ON THE FIRST DAY, THEN DECREASE TO 2 TABLETS BY MOUTH DAILY TAKE TWO TABLETS BY MOUTH THREE TIMES A DAY ON THE FIRST DAY, THEN DECREASE TO 2 TABLETS BY MOUTH DAILY SOLD: 12/01/2020 [facility] Magnesium Oxide 400 MG Oral Capsule Magnesium Oxide -MG Supp lement 12/01/2020 12:00:00 AM EDT ORAL active M [facility]ENT ([facility]) Potassium Chloride 10 MEQ Extended Release Oral Tablet Potassium Chloride [facility] 11/30/2020 12:00:00 AM EDT ORAL active [facility] ([facility]) Flonase Allergy Relief Flonase Allergy Relief 10/25/2020 12:00:00 AM E DT active [facility] ([facility]) Bisacodyl 10 MG Rectal Suppository bisacodyl (DULCOLAX ) suppository 10 mg bisacodyl (DULCOLAX) suppository 10 mg 10/12/2020 09:00:00 AM EDT 10 mg Rectal active 10 mg, Rectal, Daily PRN, constipation, Starting on Karey 10/12/20 at 0900
If lactulose not effective, give bisacodyl suppository x 1 per rectum prn starting POD #3.
[facility] Medication administered onsite 25 mg 10/12/2020 12:00:00 AM EDT tablet 30 TAKE ONE TABLET BY MOUTH EVERY DAY TAKE ONE TABLET BY MOUTH EVERY DAY SOLD: 01/02/2021 [facility] 40 mg 10/12/2020 12:00:00 AM EDT tablet 30 TAKE ONE TABLET BY MOUTH EVERY DAY TAKE ONE TABLET BY MOUTH EVERY DAY SOLD: 11/29/2020 [facility] 25 mg 10/12/2020 12:00:00 AM EDT tablet 30 TAKE ONE TABLET BY MOUTH EVERY DAY TAKE ONE TABLET BY MOUTH EVERY DAY SOLD: 10/12/2020 [facility] 25 mg 10/12/2020 12:00:00 AM EDT tablet 30 TAKE ONE TABLET BY MOUTH EVERY DAY TAKE ONE TABLET BY MOUTH EVERY DAY SOLD: 11/04/2020 [facility] 40 mg 10/12/2020 12:00:00 AM EDT tablet 30 TAKE ONE TABLET BY MOUTH EVERY DAY TAKE ONE TABLET BY MOUTH EVERY DAY SOLD: 10/12/2020 [facility] 25 mg 10/12/2020 12:00:00 AM EDT tablet 30 TAKE ONE TABLET BY MOUTH EVERY DAY TAKE ONE TABLET BY MOUTH EVERY DAY SOLD: 12/07/2020 [facility] 40 mg 10/12/2020 12:00:00 AM EDT tablet 30 TAKE ONE TABLET BY MOUTH EVERY DAY TAKE ONE TABLET BY MOUTH EVERY DAY SOLD: 11/04/2020 [facility] POLYETHYLENE GLYCOL 3350 142 MG/ML Oral Solution polyethylene glycol (GLYCOLAX) packet 17 g polyethylene glycol (GLYCOLAX) packet 17 g 10/11/2020 07:00:00 AM EDT 17 g Oral active 17 g, Or al, Daily PRN, For constipation, Starting on Fri10/11/20 at 0700
hold for loose stools
[facility] Medication administered onsite potassium chloride (KLOR-CON) packet 40 mEq 4140-6659-29 10/11/2020 06:00:00 AM EDT 40 meq Oral completed 40 mEq , Oral, Once, On Fri10/11/20 at 0600, For 1 dose [facility] Medication administered onsite Furosemide 40 MG Oral Tablet furosemide (LASIX) 40 MG tablet furosemide (LASIX) 40 MG tablet 10/11/2020 12:00:00 AM EDT 40 mg Oral activ e Take 1 tablet (40 mg total) by mouth daily [facility] Atenolol 25 MG Oral Tablet atenolol (TENORMIN) 25 MG t ablet atenolol (TENORMIN) 25 MG tablet 10/11/2020 12:00:00 AM EDT 25 mg Oral activ e Take 1 tablet (25 mg total) by mouth daily [facility] furosemide (LASIX) injection 20 mg [id number] 10/10/2020 07:00:00 PM EDT 20 mg Intravenous completed 20 mg, I ntravenous, Once, On Fri10/10/20 at 1900, For 1 dose [facility] Medication administered onsite warfarin (COUMADIN) tablet 5 mg 10/10/2020 05:00:00 PM EDT 5 mg Oral completed 5 mg, Oral, [id number], F irst dose on Fri10/10/20 at 1700, For 1 dose
For administration and preparation considerations, refer to Hazardous Drugs in the Workplace Policy on Intranet.
[facility] Medication administered onsite Cefazolin 1000 MG Injection ceFAZolin (ANCEF) injectio n ceFAZolin (ANCEF) injection 10/10/2020 12:07:07 PM EDT active As needed, Starting on Fri10/10/20 at 1207, Intra-Procedure [facility] Medication administered onsite Docusate Sodium 100 MG Oral Capsule docusate sodium (C OLACE) capsule 100 mg docusate sodium (COLACE) capsule 100 mg 10/10/2020 09:00:00 AM EDT 100 mg Oral active 100 mg, Oral, 2 times daily, First dose on Fri10/10/20 at 0900
Start first POD.
[facility] Medication administered onsite pantoprazole 40 MG Delayed Release Oral Tablet pantoprazole (PROTONIX) EC tablet 40 mg pantoprazole (PROTONIX) EC tablet 40 mg 10/10/2020 09:00:00 AM E DT 40 mg Oral active 40 mg, Ora l, Daily, First dose on Fri10/10/20 at 0900
Formulary sub for omeprazole
[facility] Medication administered onsite clopidogrel 75 MG Oral Tablet clopidogrel (PLAVIX) tab let 75 mg clopidogrel (PLAVIX) tablet 75 mg 10/10/2020 09:00:00 AM EDT 75 mg Oral active 75 mg, Oral, Daily, First dose on Fri10/10/20 at 0900
Start first POD.
[facility] Medication administered onsite atorvastatin 40 MG Oral Tablet atorvastatin (LIPITOR) tablet 40 mg atorvastatin (LIPITOR) tablet 40 mg 10/10/2020 09:00:00 AM EDT 40 mg Oral active 40 mg, Oral, Daily, First dose on Fri10/10/20 at 0900 [facility] Medication administered onsite normal saline flush 0.9 % injection 3 mL [id number] 10/10/2020 07:00:00 AM EDT 3 mL Intravenous aborted 3 mL , Intravenous, Every 8 hours (scheduled), First dose on Fri10/10/20 at 0700, Pre-op
Rapid push positive pressure flushing shall be performed with a 10 cc normal saline syringe to check the PATENCY of a PIV site prior to any infusion therapy initiation unless resistance is met.
[facility] Medication administered onsite Levothyroxine Sodium 0.075 MG Oral Table t levothyroxine (SYNTHROID, LEVOTHROID) tablet 75 mcg levothyroxine (SYNTHROID, LEVOTHROID) tablet 75 mcg 06:00:00 AM EDT 75 ug Oral active 75 mcg, Oral, Daily (599), First dose on Fri10/10/20 at 0600 [facility] Medication administered onsite magnesium sulfate 1 g in dextrose 5% infusion (premix) 17390 -108-01 10/10/2020 06:00:00 AM EDT 1 g Intravenous completed 1 g, Intravenous, at 200 mL/hr, Once, On Fri10/10/20 at 0600, For 1 dose [facility] Medication administered onsite latanoprost 0.05 MG/ML Ophthalmic Soluti on latanoprost (XALATAN) 0.005 % ophthalmic solution 1 drop latanoprost (XALATAN) 0.005 % ophthalmic solution 1 drop 10/09/2020 09:00:00 PM EDT 1 [drp] active 1 drop, Both Eyes, Nightly, First dose on Fri10/09/20 at 2100 [facility] Medication administered onsite Brimonidine tartrate 2 MG/ML Ophthalmic Solution brimonidine (ALPHAGAN) 0.2 % ophthalmic solution 1 drop brimonidine (ALPHAGAN) 0.2 % ophthalmic solution 1 drop 10/09/2020 09:00:00 PM EDT 1 [drp] active 1 drop, Both Eyes, 2 times daily, First dose on Fri10/09/20 at 2100 [facility] Medication administered onsite Cefazolin 1000 MG Injection ceFAZolin (ANCEF) injectio n 1 g ceFAZolin (ANCEF) injection 1 g 10/09/2020 08:00:00 PM EDT 1 g Intravenous completed Perioperative Pharmacoprophylaxis 1 g, Intravenous, Ev leonard 8 hours (relative), First dose on Fri10/09/20 at 2000, For 2 doses, Post-op
Reconstitute with 10 ml sterile water for injection. Administer IV push over 3 minutes. Use within 1 hour of reconstitution
[facility] Perioperative Pharmacoprophylaxis Medication administered onsite 60 ACTUAT formoterol fumarate 0.005 MG/A CTUAT / mometasone furoate 0.2 MG/ACTUAT Metered Dose Inhaler mometasone-formoterol (DULERA) 200-5 MCG/ACT inhaler 2 puff mometasone-formoterol (DULERA) 200-5 MCG/ACT inhaler 2 puff 10/09/2020 08:00:00 PM EDT 2 {puff} Inhalation active 2 puff, Inhalation, 2 times daily, First dose on Fri10/09/20 at 2000 [facility] Medication administered onsite normal saline flush 0.9 % injection 3 mL [id number] 10/09/2020 03:00:00 PM EDT 3 mL Intravenous active 3 mL , Intravenous, PROTOCOL, First dose on Fri10/09/20 at 1500
flush per protocol, D/C Main IV fluid if appropriate
[facility] Medication administered onsite norepinephrine bitartrate (LEVOPHED) 4 m g in sodium chloride (NS) 0.9 % 250 mL infusion 10/09/2020 03:00:00 PM EDT ug/min Intravenous aborted 0-10 mcg/min (0-37.5 mL/hr), Intravenous, Continuous, Starting on Fri10/09/20 at 1500, Until Fri10/11/20 at 0953, at 0-37.5 mL/hr [facility] Medication administered onsite propofol (DIPRIVAN) infusion 10 mg/mL [id number] 10/09/2020 03:00 :00 PM EDT ug/kg/min Intravenous aborted 0-35 mc g/kg/min 73.1 kg (0-15.351 mL/hr, rounded to 0-15.4 mL/hr), Intravenous, at 0-15.4 mL/hr, Continuous, Starting on Fri10/09/20 at 1500, For 1 day
Infuse this medication only through single port tubing ([facility] Infusion Set ref [id number]). Medication and tubing is to be discarded if infusion off for 4 hours.
[facility] Medication administered onsite heparin (porcine) injection 5,000 Units [id number] 10/10/19 03:00:00 PM EDT 5000 U Subcutaneous active 5,000 Units , Subcutaneous, Every 8 hours (scheduled), First dose on Fri10/09/20 at 1500
If platelet count is less than 80,000 or hematocrit is less than 25, or if there is a 5 point decrease in hematocrit, do not give the dose and call physician/designee.
[facility] Medication administered onsite Patient on Coumadin during hospitalizati on. (To order Coumadin on discharge click the don t prescribe button and go to new orders on discharge section. Coumadin can be ordered there. Alternatively, reconcile the pre admission Coumadin dose if it appears on the list below) drug or medication 10/09/2020 01:39:27 PM EDT 1 {each} active 1 each, Mi scellaneous, Daily Coumadin Notification (1000), Starting on Fri10/09/20 at 1339, Until Discontinued
Indication for Warfarin: Other (Specify): / remote vascular injury
[facility] INR: 2 to 3 [facility] Medication administered onsite HYDROmorphone (DILAUDID) injection 0.5 mg [id number] 10/09/2020 01:38:48 PM EDT 0.5 mg Intravenous completed 0. 5 mg, Intravenous, Every 5 min PRN, severe pain (7-10), Starting on Fri10/09/20 at 1338, For 2 doses, PACU (only) [facility] Medication administered onsite fentaNYL Citrate (PF) (SUBLIMAZE) injection 25 mcg [id number] 10/09/2020 01:38:48 PM EDT 25 ug Intravenous completed Postoperat alexandro Pain 25 mcg, Intravenous, Every 5 min PRN, moderate pain (4 to 6), Starting on Fri10/09/20 at 1338, For 11 doses, PACU (only) [facility] Postoperative Pain Medication administered onsite acetaminophen (TYLENOL) 325 MG tablet 650 mg 01:37:32 PM EDT 650 mg Oral active [Order 1 S tart] Name: acetaminophen (TYLENOL) 325 MG tablet 650 mg Signed Summary: 650 mg, Oral, Every 4 hours PRN, mild pain (1-3), for temperature > 101. Call MD/PA. May also give for headache., Starting on Fri10/09/20 at 1337
"Maximum dose of acetaminophen is 4,000 mg from all sources in 24 hours."
[Order 1 End] [Order 2 Start] Name: acetaminophen (TYLENOL) suppository 650 mg Signed Summary: 650 mg (1 suppository), Rectal, Every 4 hours PRN, mild pain (1-3), for temperature > 101. Call MD/PA. May also give for headache., Starting on Fri10/09/20 at 1337 [Order 2 End] [facility] Medication administered onsite 2 ML Metoclopramide 5 MG/ML Prefilled Sy ringe metoclopramide (REGLAN) injection 10 mg metoclopramide (REGLAN) injection 10 mg 10/09/2020 01:37:32 PM E DT 10 mg Intravenous active 10 mg, I ntravenous, Every 6 hours PRN, nausea, vomiting, Starting on Fri10/09/20 at 1337
Give once if no response to Zofran after 15-30 minutes, then q6h prn N/V.
[facility] Medication administered onsite ondansetron (ZOFRAN) injection 4 mg [id number] 10/09/2020 01:37:3 2 PM EDT 4 mg Intravenous active 4 mg, In travenous, Every 6 hours PRN, nausea, vomiting, Starting on Fri10/09/20 at 1337
If no response in 15-30 minutes then give metoclopramide 10 mg IV x 1 then q6h prn N/V.
[facility] Medication administered onsite 10 ML Atropine Sulfate 0.1 MG/ML Prefill ed Syringe atropine sulfate injection 0.5 mg atropine sulfate injection 0.5 mg 10/09/2020 01:37:31 PM EDT 0.5 mg active 0.5 mg, Intrave nous Push, Every 5 min PRN, other, As needed, for heart rate less than 60 BPM and the patient is hemodynamically unstable and/or SBP is less than 90mmHg, Starting on Fri10/09/20 at 1337, For 6 doses
Not to exceed a total of 3 mg or 0.04 mg/kg.
[facility] Medication administered onsite Nitroglycerin 0.4 MG Sublingual Tablet n itroglycerin (NITROSTAT) SL tablet 0.4 mg nitroglycerin (NITROSTAT) SL tablet 0.4 mg 10/09/2020 01:17:26 P M EDT 0.4 mg Sublingual active 0.4 mg, S ublingual, Every 5 min PRN, chest pain, Starting on Fri10/09/20 at 1317
May administer up to 3 doses per episode.
[facility] Medication administered onsite Albuterol 0.83 MG/ML Inhalant Solution a lbuterol (PROVENTIL) nebulizer solution 2.5 mg albuterol (PROVENTIL) nebulizer solution 2.5 mg 2020 01:16:44 PM EDT 2.5 mg active 2.5 mg, Nebulization, RT 4 times daily as needed, shortness of breath, Starting on Fri10/09/20 at 1316 [facility] Medication administered onsite Albuterol 0.83 MG/ML Inhalant Solution a lbuterol (PROVENTIL) nebulizer solution 2.5 mg albuterol (PROVENTIL) nebulizer solution 2.5 mg 2020 12:00:00 PM EDT 2.5 mg completed 2.5 mg , Nebulization, Once, On Fri10/09/20 at 1200, For 1 dose [facility] Medication administered onsite Potassium Chloride 20 MEQ Extended Relea se Oral Tablet potassium chloride 20 MEQ TBCR potassium chloride 20 MEQ TBCR 10/03/2020 12:00:00 AM EDT 20 meq Oral aborted Take 1 tablet (20 mEq total) by mouth daily [facility] 20 mEq 10/03/2020 12:00:00 AM EDT tablet extended release 30 TAKE ONE TABLET BY MOUTH EVERY DAY TAKE ONE TABLET BY MOUTH EVERY DAY SOLD: 10/04/2020 [facility] 100 mg 09/28/2020 12:00:00 AM EDT tablet 25 TAKE ONE TABLET BY MOUTH EVERY DAY TAKE ONE TABLET BY MOUTH EVERY DAY SOLD: 09/30/2020 [facility] torsemide 100 MG Oral Tablet torsemide (DEMADEX) 100 M G tablet torsemide (DEMADEX) 100 MG tablet 09/28/2020 12:00:00 AM EDT 100 mg Oral aborted Take 1 tablet (100 mg total) by mouth daily [facility] Cephalexin 500 MG Oral Capsule CEPHALEXIN 09/04/2020 12:00:00 AM EDT capsule 20 TAKE ONE CAPSULE BY MOUTH TWICE A DAY FOR 10 DAYS TAKE ONE CAPSULE BY MOUTH TWICE A DAY FOR 10 DAYS SOLD: 09/04/2020 [facility] Cephalexin 500 MG Oral Tablet Cephalexin 09/04/2020 12:00:00 AM EDT ORAL active [facility] ([facility], [facility]) 90 mcg/actuation 08/24/2020 12:00:00 AM EDT HFA aerosol inha ler 18 INHALE TWO PUFFS BY MOUTH FOUR TIMES A DAY NEEDED INHALE TWO PUFFS BY MOUTH FOUR TIMES A DAY NEEDED SOLD: 11/29/2020 [facility] 90 mcg/actuation 08/24/2020 12:00:00 AM EDT HFA aerosol inha ler 18 INHALE TWO PUFFS BY MOUTH FOUR TIMES A DAY NEEDED INHALE TWO PUFFS BY MOUTH FOUR TIMES A DAY NEEDED SOLD: 09/01/2020 [facility] Ciprofloxacin 500 MG Oral Tablet Ciprofloxacin HCL 08/23/2020 12:00 :00 AM EDT active MED[facility] ([facility], [facility]) Cephalexin 250 MG Oral Capsule Cephalexin 08/23/2020 12:00:00 AM EDT ORAL completed [facility] ([facility], [facility]) 250 mg 08/23/2020 12:00:00 AM EDT capsule 14 TAKE ONE CAPSULE BY MOUTH TWICE A DAY DIRECTED FOR 7 DAYS TAKE ONE CAPSULE BY MOUTH TWICE A DAY DIRECTED FOR 7 DAYS SOLD: 08/23/2020 [facility] 20 mg 08/15/2020 12:00:00 AM EDT tablet 120 TAKE TWO TABLETS BY MOUTH EVERY MORNING AND 2 TABLETS AT 1:00PM TAKE TWO TABLETS BY MOUTH EVERY MORNING AND 2 TABLETS AT 1:00PM SOLD: 08/20/2020 [facility] 20 mg 08/15/2020 12:00:00 AM EDT tablet 120 TAKE TWO TABLETS BY MOUTH EVERY MORNING AND 2 TABLETS AT 1:00PM TAKE TWO TABLETS BY MOUTH EVERY MORNING AND 2 TABLETS AT 1:00PM SOLD: 09/19/2020 [facility] 75 mg 08/03/2020 12:00:00 AM EDT tablet 30 TAKE ONE TABLET BY MOUTH EVERY DAY TAKE ONE TABLET BY MOUTH EVERY DAY SOLD: 11/29/2020 [facility] 75 mg 08/03/2020 12:00:00 AM EDT tablet 30 TAKE ONE TABLET BY MOUTH EVERY DAY TAKE ONE TABLET BY MOUTH EVERY DAY SOLD: 12/23/2020 [facility] 75 mg 08/03/2020 12:00:00 AM EDT tablet 30 TAKE ONE TABLET BY MOUTH EVERY DAY TAKE ONE TABLET BY MOUTH EVERY DAY SOLD: 09/30/2020 [facility] 75 mg 08/03/2020 12:00:00 AM EDT tablet 30 TAKE ONE TABLET BY MOUTH EVERY DAY TAKE ONE TABLET BY MOUTH EVERY DAY SOLD: 09/01/2020 [facility] 75 mg 08/03/2020 12:00:00 AM EDT tablet 30 TAKE ONE TABLET BY MOUTH EVERY DAY TAKE ONE TABLET BY MOUTH EVERY DAY SOLD: 08/03/2020 [facility] 75 mg 08/03/2020 12:00:00 AM EDT tablet 30 TAKE ONE TABLET BY MOUTH EVERY DAY TAKE ONE TABLET BY MOUTH EVERY DAY SOLD: 10/31/2020 [facility] Nitroglycerin 0.4 MG Sublingual Tablet n itroglycerin (NITROSTAT) SL tablet 0.4 mg nitroglycerin (NITROSTAT) SL tablet 0.4 mg 08/02/2020 10:44:38 A M EDT 0.4 mg Sublingual active 0.4 mg, S ublingual, Every 5 min PRN, chest pain, Starting on Fri08/02/20 at 1044, Post-op
May administer every 5 minutes for 3 doses and call cardio lab MD.
[facility] Medication administered onsite Acetaminophen 325 MG Oral Tablet acetaminophen (TYLENO L) 325 MG tablet 650 mg acetaminophen (TYLENOL) 325 MG tablet 650 mg 08/02/2020 10:44:37 AM EDT 650 mg Oral active 650 mg, Or al, Every 4 hours PRN, headaches, and non cardiac pain, Starting on Fri08/02/20 at 1044, Post-op
"Maximum dose of acetaminophen is 4,000 mg from all sources in 24 hours."
[facility] Medication administered onsite 10 ML Atropine Sulfate 0.1 MG/ML Prefill ed Syringe atropine sulfate injection 0.5 mg atropine sulfate injection 0.5 mg 08/02/2020 10:44:37 AM EDT 0.5 mg active 0.5 mg, Intrave nous Push, Every 5 min PRN, other, As needed, for heart rate less than 60 BPM and the patient is hemodynamically unstable and/or SBP is less than 90mmHg, Starting on Fri08/02/20 at 1044, For 1 day, Post-op
Not to exceed a total of 3 mg or 0.04 mg/kg. Max of 6 doses
[facility] Medication administered onsite Aspirin 81 MG Chewable Tablet aspirin chewable tablet aspiri n chewable tablet 08/02/2020 10:17:31 AM EDT active As needed, Starting on Fri08/02/20 at 1017, Intra-Procedure [facility] Medication administered onsite clopidogrel 75 MG Oral Tablet clopidogrel (PLAVIX) tab let clopidogrel (PLAVIX) tablet 08/02/2020 10:17:18 AM EDT active As needed, Starting on Fri08/02/20 at 1017, Intra-Procedure [facility] Medication administered onsite furosemide (LASIX) injection [id number] 08/02/2020 10:08:39 AM EDT active As needed, Starting on Fri at 1008, Intra-Procedure [facility] Medication administered onsite iopamidol (ISOVUE-370) 76 % [id number] 08/02/2020 10:08:26 AM EDT active As needed, Starting on Fri08/02/20 at 1008, Intra-Proc edure [facility] Medication administered onsite 1 ML heparin sodium, porcine 1000 UNT/ML Injection hep jack (porcine) injection heparin (porcine) injection 08/02/2020 09:53:30 AM EDT active As needed, Starting on Fri08/02/20 at 0953, Intra-Procedure [facility] Medication administered onsite 4 ML Verapamil hydrochloride 2.5 MG/ML Injection verap anali (ISOPTIN) injection verapamil (ISOPTIN) injection 08/02/2020 09:34:05 AM EDT active As needed, Starting on Fri08/02/20 at 0934, Intra-Procedure [facility] Medication administered onsite lidocaine 1 % injection [id number] 08/02/2020 09:33:01 AM EDT active As needed, Starting on Fri at 0933, Intra-Procedure [facility] Medication administered onsite normal saline flush 0.9 % injection 3 mL [id number] 08/02/2020 09:00:00 AM EDT 3 mL Intravenous active 3 mL , Intravenous, PROTOCOL, First dose on Fri08/02/20 at 0900, Pre-op
flush per protocol, D/C Main IV fluid if appropriate
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
Start two hours prior to scheduled start time
[facility] Medication administered onsite normal saline flush 0.9 % injection 3 mL [id number] 08/02/2020 08:00:00 AM EDT 3 mL Intravenous active 3 mL , Intravenous, Every 8 hours (scheduled), First dose on Fri08/02/20 at 0800, Pre-op
Rapid push positive pressure flushing shall be performed with a 10 cc normal saline syringe to check the PATENCY of a PIV site prior to any infusion therapy initiation unless resistance is met.
[facility] Medication administered onsite normal saline flush 0.9 % injection 3 mL [id number] 08/02/2020 08:00:00 AM EDT 3 mL Intravenous active 3 mL , Intravenous, Every 8 hours (scheduled), First dose on Fri08/02/20 at 0800, Pre-op
Rapid push positive pressure flushing shall be performed with a 10 cc normal saline syringe to check the PATENCY of a PIV site prior to any infusion therapy initiation unless resistance is met.
[facility] Medication administered onsite Aspirin 81 MG Chewable Tablet aspirin 81 MG chewable t ablet aspirin 81 MG chewable tablet 08/02/2020 12:00:00 AM EDT 81 mg Oral ac tive Chew 1 tablet (81 mg total) daily [facility] clopidogrel 75 MG Oral Tablet clopidogrel (PLAVIX) 75 MG tablet clopidogrel (PLAVIX) 75 MG tablet 08/02/2020 12:00:00 AM EDT 75 mg Oral active Take 1 tablet (75 mg total) by mouth daily Please take 4 pills the night before the procedure [facility] 75 mg 07/31/2020 12:00:00 AM EDT tablet 4 TAKE FOUR TABLETS BY MOUTH ONCE THE NIGHT BEFORE PROCEDURE TAKE FOUR TABLETS BY MOUTH ONCE THE NIGH T BEFORE PROCEDURE SOLD: 08/01/2020 [facility] Cov[facility]-19 vaccine, Unspecified 07/26/2020 12:00:00 AM EDT completed [facility] ([facility]) Medication administered onsite 20 mg 07/23/2020 12:00:00 AM EDT tablet 60 TAKE TWO TABLETS BY MOUTH TWICE A DAY TAKE TWO TABLETS BY MOUTH TWICE A DAY SOLD: 07/23/2020 [facility] Atenolol 50 MG Oral Tablet atenolol (TENORMIN) 50 MG t ablet atenolol (TENORMIN) 50 MG tablet 07/22/2020 12:00:00 AM EDT 25 mg Oral abort ed Take 0.5 tablets (25 mg total) by mouth daily [facility] furosemide (LASIX) injection 40 mg [id number] 07/21/2020 05:00:00 PM EDT 40 mg Intravenous active 40 mg, I ntravenous, LOOPBID, First dose on Fri07/21/20 at 1700 [facility] Medication administered onsite normal saline flush 0.9 % injection 3 mL [id number] 07/21/2020 03:00:00 PM EDT 3 mL Intravenous active 3 mL , Intravenous, PROTOCOL, First dose on Fri07/21/20 at 1500, Pre-op
flush per protocol, D/C Main IV fluid if appropriate
[facility] Medication administered onsite normal saline flush 0.9 % injection 3 mL [id number] 07/21/2020 02:00:00 PM EDT 3 mL Intravenous active 3 mL , Intravenous, Every 8 hours (scheduled), First dose on Fri07/21/20 at 1400, Pre-op
Rapid push positive pressure flushing shall be performed with a 10 cc normal saline syringe to check the PATENCY of a PIV site prior to any infusion therapy initiation unless resistance is met.
[facility] Medication administered onsite normal saline flush 0.9 % injection 3 mL [id number] 07/21/2020 02:00:00 PM EDT 3 mL Intravenous active 3 mL , Intravenous, Every 8 hours (scheduled), First dose on Fri07/21/20 at 1400, Pre-op
Rapid push positive pressure flushing shall be performed with a 10 cc normal saline syringe to check the PATENCY of a PIV site prior to any infusion therapy initiation unless resistance is met.
[facility] Medication administered onsite sodium chloride 0.9% (NS) infusion [id number] 07/21/2020 01:00:00 PM EDT 100 mL/h Intravenous active at 100 m L/hr, 100 mL/hr, Intravenous, Continuous, Starting on Fri07/21/20 at 1300, Pre-op
Start two hours prior to scheduled start time
[facility] Medication administered onsite Acetaminophen 325 MG Oral Tablet acetaminophen (TYLENO L) 325 MG tablet 650 mg acetaminophen (TYLENOL) 325 MG tablet 650 mg 07/21/2020 12:16:07 PM EDT 650 mg Oral active 650 mg, Or al, Every 4 hours PRN, headaches, and non cardiac pain, Starting on Fri07/21/20 at 1216, Pre-op
"Maximum dose of acetaminophen is 4,000 mg from all sources in 24 hours."
[facility] Medication administered onsite atorvastatin 40 MG Oral Tablet atorvastatin (LIPITOR) tablet 40 mg atorvastatin (LIPITOR) tablet 40 mg 07/21/2020 09:00:00 AM EDT 40 mg Oral active 40 mg, Oral, Daily, First dose on Fri07/21/20 at 0900 [facility] Medication administered onsite pantoprazole 40 MG Delayed Release Oral Tablet pantoprazole (PROTONIX) EC tablet 40 mg pantoprazole (PROTONIX) EC tablet 40 mg 07/21/2020 09:00:00 AM E DT 40 mg Oral active 40 mg, Oral, Daily, Firs t dose on Fri07/21/20 at 0900 [facility] Medication administered onsite Atenolol 50 MG Oral Tablet atenolol (TENORMIN) tablet 50 mg atenolol (TENORMIN) tablet 50 mg 07/21/2020 09:00:00 AM EDT 50 mg Oral activ e 50 mg, Oral, Daily, First dose on Fri07/21/20 at 0900 [facility] Medication administered onsite Aspirin 81 MG Chewable Tablet aspirin chewable tablet 81 mg aspirin chewable tablet 81 mg 07/21/2020 09:00:00 AM EDT 81 mg Oral activ e 81 mg, Oral, Daily, First dose on Fri07/21/20 at 0900 [facility] Medication administered onsite Amlodipine 5 MG Oral Tablet amLODIPine (NORVASC) table t 5 mg amLODIPine (NORVASC) tablet 5 mg 07/21/2020 09:00:00 AM EDT 5 mg Oral active 5 mg, Oral, Daily, First dose on Fri07/21/20 at 0900 [facility] Medication administered onsite Levothyroxine Sodium 0.075 MG Oral Table t levothyroxine (SYNTHROID, LEVOTHROID) tablet 75 mcg levothyroxine (SYNTHROID, LEVOTHROID) tablet 75 mcg 06:00:00 AM EDT 75 ug Oral active 75 mcg, Oral, Daily (599), First dose on Fri07/21/20 at 0600 [facility] Medication administered onsite Furosemide 20 MG Oral Tablet furosemide (LASIX) 20 MG tablet furosemide (LASIX) 20 MG tablet 07/21/2020 12:00:00 AM EDT 40 mg Oral abort ed Take 2 tablets (40 mg total) by mouth 2 (two) times a day [facility] Furosemide 20 MG Oral Tablet furosemide (LASIX) 20 MG tablet furosemide (LASIX) 20 MG tablet 07/21/2020 12:00:00 AM EDT 40 mg Oral abort ed Take 2 tablets (40 mg total) by mouth 2 (two) times a day [facility] Losartan Potassium 100 MG Oral Tablet losartan (COZAAR ) 100 MG tablet losartan (COZAAR) 100 MG tablet 07/21/2020 12:00:00 AM EDT 50 mg Oral aborted Take 0.5 tablets (50 mg total) by mouth daily [facility] Brimonidine tartrate 2 MG/ML Ophthalmic Solution brimonidine (ALPHAGAN) 0.2 % ophthalmic solution 1 drop brimonidine (ALPHAGAN) 0.2 % ophthalmic solution 1 drop 07/20/2020 09:00:00 PM EDT 1 [drp] active 1 drop, Both Eyes, 2 times daily, First dose on Fri07/20/20 at 2100 [facility] Medication administered onsite latanoprost 0.05 MG/ML Ophthalmic Soluti on latanoprost (XALATAN) 0.005 % ophthalmic solution 1 drop latanoprost (XALATAN) 0.005 % ophthalmic solution 1 drop 07/20/2020 09:00:00 PM EDT 1 [drp] active 1 drop, Both Eyes, Nightly, First dose on Fri07/20/20 at 2100 [facility] Medication administered onsite Albuterol 0.83 MG/ML Inhalant Solution a lbuterol (PROVENTIL) nebulizer solution 2.5 mg albuterol (PROVENTIL) nebulizer solution 2.5 mg 2020 08:00:00 PM EDT 2.5 mg active 2.5 mg, Nebulization, 3 times daily, First dose on Fri07/20/20 at 1999 [facility] Medication administered onsite 60 ACTUAT formoterol fumarate 0.005 MG/A CTUAT / mometasone furoate 0.2 MG/ACTUAT Metered Dose Inhaler mometasone-formoterol (DULERA) 200-5 MCG/ACT inhaler 2 puff mometasone-formoterol (DULERA) 200-5 MCG/ACT inhaler 2 puff 07/20/2020 08:00:00 PM EDT 2 {puff} Inhalation active 2 puff, Inhalation, 2 times daily, First dose on Fri07/20/20 at 2000 [facility] Medication administered onsite furosemide (LASIX) infusion 500 mg/50 ML 07/20/2020 06:00: 00 PM EDT 5 mg/h Intravenous aborted 5 mg/hr (0.5 mL/hr), Intravenous, Continuous, Starting on Fri07/20/20 at 1800, Until Fri07/21/20 at 0946, at 0.5 mL/hr [facility] Medication administered onsite furosemide (LASIX) injection 40 mg [id number] 07/20/2020 05:00:00 PM EDT 40 mg Intravenous aborted 40 mg, I ntravenous, LOOPBID, First dose on Fri07/20/20 at 1700, For 2 doses [facility] Medication administered onsite Albuterol 0.83 MG/ML Inhalant Solution a lbuterol (PROVENTIL) nebulizer solution 2.5 mg albuterol (PROVENTIL) nebulizer solution 2.5 mg 2020 02:59:48 PM EDT 2.5 mg active 2.5 mg, Nebulization, Every 2 hour PRN, wheezing, shortness of breath, Starting on Karey 07/20/20 at 1459 [facility] Medication administered onsite sodium chloride 0.9% (NS) infusion 07/20/2020 01:00:00 PM EDT 100 mL/h Intravenous active at 100 m L/hr, 100 mL/hr, Intravenous, Continuous, Starting on Karey 07/20/20 at 1300
Start two hours prior to scheduled start time
[facility] Medication administered onsite sodium chloride 0.9% (NS) infusion 07/20/2020 09:00:00 A M EDT Intravenous aborted at 100 mL/hr, Intravenous, Continuous, Starting on Karey 07/20/20 at 0900
Run 2 hours prior to cath
[facility] Medication administered onsite clopidogrel 75 MG Oral Tablet Clopidogrel Bisulfate 06/29/2020 1 2:00:00 AM EDT ORAL completed [facility] ([facility]) Covid-19 vaccine, Unspecified 06/24/2020 12:00:00 AM EDT completed [facility] Medication administered onsite 60 ACTUAT Fluticasone propionate 0.25 MG /ACTUAT / salmeterol 0.05 MG/ACTUAT Dry Powder Inhaler [Advair] 250-50 mcg/dose FLUTICASONE PROPION/SALMETEROL 06/15/2020 12:00:00 AM EDT blister with device 60 I NHALE ONE PUFF BY MOUTH TWO TIMES A DAY INHALE ONE PUFF BY MOUTH TWO TIMES A DAY SOLD: 08/15/2020 [facility] 60 ACTUAT Fluticasone propionate 0.25 MG /ACTUAT / salmeterol 0.05 MG/ACTUAT Dry Powder Inhaler [Advair] 250-50 mcg/dose FLUTICASONE PROPION/SALMETEROL 06/15/2020 12:00:00 AM EDT blister with device 60 I NHALE ONE PUFF BY MOUTH TWO TIMES A DAY INHALE ONE PUFF BY MOUTH TWO TIMES A DAY SOLD: 07/15/2020 [facility] 60 ACTUAT Fluticasone propionate 0.25 MG /ACTUAT / salmeterol 0.05 MG/ACTUAT Dry Powder Inhaler [Advair] 250-50 mcg/dose FLUTICASONE PROPION/SALMETEROL 06/15/2020 12:00:00 AM EDT blister with device 60 I NHALE ONE PUFF BY MOUTH TWO TIMES A DAY INHALE ONE PUFF BY MOUTH TWO TIMES A DAY SOLD: 11/20/2020 [facility] 250-50 mcg/dose 06/15/2020 12:00:00 AM EDT blister with anita ce 60 INHALE ONE PUFF BY MOUTH TWO TIMES A DAY INHALE ONE PUFF BY MOUTH TWO TIMES A DAY SOLD: 06/18/2020 [facility] 60 ACTUAT Fluticasone propionate 0.25 MG /ACTUAT / salmeterol 0.05 MG/ACTUAT Dry Powder Inhaler [Advair] 250-50 mcg/dose FLUTICASONE PROPION/SALMETEROL 06/15/2020 12:00:00 AM EDT blister with device 60 I NHALE ONE PUFF BY MOUTH TWO TIMES A DAY INHALE ONE PUFF BY MOUTH TWO TIMES A DAY SOLD: 10/20/2020 [facility] 60 ACTUAT Fluticasone propionate 0.25 MG /ACTUAT / salmeterol 0.05 MG/ACTUAT Dry Powder Inhaler [Advair] 250-50 mcg/dose FLUTICASONE PROPION/SALMETEROL 06/15/2020 12:00:00 AM EDT blister with device 60 I NHALE ONE PUFF BY MOUTH TWO TIMES A DAY INHALE ONE PUFF BY MOUTH TWO TIMES A DAY SOLD: 09/19/2020 [facility] 0.4 mg 04/04/2020 12:00:00 AM EST tablet, sublingual 25 [address]ACE 1 TABLET UNDER THE TONGUE EVERY 5 MINUTES X 3 DOSES NEEDED FOR CHEST PAIN PLACE 1 TABLET UNDER THE TONGUE EVERY 5 MINUTES X 3 DOSES NEEDED FOR CHEST PAIN SOLD: 04/04/2020 [facility] 0.4 mg 04/04/2020 12:00:00 AM EST tablet, sublingual 25 [address]ACE 1 TABLET UNDER THE TONGUE EVERY 5 MINUTES X 3 DOSES NEEDED FOR CHEST PAIN PLACE 1 TABLET UNDER THE TONGUE EVERY 5 MINUTES X 3 DOSES NEEDED FOR CHEST PAIN SOLD: 06/10/2020 [facility] 100 mg 03/20/2020 12:00:00 AM EST tablet 10 TAKE ONE TABLET BY MOUTH EVERY DAY TAKE ONE TABLET BY MOUTH EVERY DAY SOLD: 03/22/2020 [facility] 100 mg 03/13/2020 12:00:00 AM EST tablet 10 TAKE ONE TABLET BY MOUTH EVERY DAY TAKE ONE TABLET BY MOUTH EVERY DAY SOLD: 03/13/2020 [facility] 75 mcg 03/03/2020 12:00:00 AM EST tablet 90 TAKE ONE TABLET BY MOUTH EVERY DAY TAKE ONE TABLET BY MOUTH EVERY DAY SOLD: 03/08/2020 [facility] 75 mcg 03/03/2020 12:00:00 AM EST tablet 90 TAKE ONE TABLET BY MOUTH EVERY DAY TAKE ONE TABLET BY MOUTH EVERY DAY SOLD: 10/06/2020 [facility] 75 mcg 03/03/2020 12:00:00 AM EST tablet 90 TAKE ONE TABLET BY MOUTH EVERY DAY TAKE ONE TABLET BY MOUTH EVERY DAY SOLD: 06/24/2020 [facility] 5 mg 02/16/2020 12:00:00 AM EST tablet 90 TAKE ONE TABLET BY MOUTH DAILY OR DIRECTED TAKE ONE TABLET BY MOUTH DAILY OR DIRECTED SOLD: 02/19/2020 [facility] 5 mg 02/16/2020 12:00:00 AM EST tablet 90 TAKE ONE TABLET BY MOUTH DAILY OR DIRECTED TAKE ONE TABLET BY MOUTH DAILY OR DIRECTED SOLD: 10/20/2020 [facility] 5 mg 02/16/2020 12:00:00 AM EST tablet 90 TAKE ONE TABLET BY MOUTH DAILY OR DIRECTED TAKE ONE TABLET BY MOUTH DAILY OR DIRECTED SOLD: 06/24/2020 [facility] Warfarin Sodium 5 MG Oral Tablet Warfarin Sodium 02/14/2020 12:00:00 AM EST ORAL active [facility] ([facility]) 5 mg 01/13/2020 12:00:00 AM EDT tablet 135 TAKE 1 & 1/2 TABLETS BY MOUTH ONCE DAILY TAKE 1 & 1/2 TABLETS BY MOUTH ONCE DAILY SOLD: 01/16/2020 [facility] 5 mg 01/13/2020 12:00:00 AM EDT tablet 135 TAKE 1 & 1/2 TABLETS BY MOUTH ONCE DAILY TAKE 1 & 1/2 TABLETS BY MOUTH ONCE DAILY SOLD: 07/26/2020 [facility] 5 mg 01/13/2020 12:00:00 AM EDT tablet 135 TAKE 1 & 1/2 TABLETS BY MOUTH ONCE DAILY TAKE 1 & 1/2 TABLETS BY MOUTH ONCE DAILY SOLD: 04/21/2020 [facility] 500 mg 01/05/2020 12:00:00 AM EDT tablet 8 TAKE FOUR TABLETS BY MOUTH ONE HOUR PRIOR TO PROCEDURE TAKE FOUR TABLETS BY MOUTH ONE HOUR PRIOR TO PROCEDURE SOLD: 01/11/2020 [facility] Administration Of Flu Vaccine 12/29/2019 12:00:00 AM EDT completed [facility] ([facility]) Medication administered onsite 250-50 mcg/dose 12/15/2019 12:00:00 AM EDT blister with anita ce 60 INHALE ONE PUFF BY MOUTH TWICE A DAY INHALE ONE PUFF BY MOUTH TWICE A DAY SOLD: 04/17/2020 [facility] 250-50 mcg/dose 12/15/2019 12:00:00 AM EDT blister with anita ce 60 INHALE ONE PUFF BY MOUTH TWICE A DAY INHALE ONE PUFF BY MOUTH TWICE A DAY SOLD: 01/16/2020 [facility] 250-50 mcg/dose 12/15/2019 12:00:00 AM EDT blister with anita ce 60 INHALE ONE PUFF BY MOUTH TWICE A DAY INHALE ONE PUFF BY MOUTH TWICE A DAY SOLD: 05/17/2020 [facility] 250-50 mcg/dose 12/15/2019 12:00:00 AM EDT blister with anita ce 60 INHALE ONE PUFF BY MOUTH TWICE A DAY INHALE ONE PUFF BY MOUTH TWICE A DAY SOLD: 02/12/2020 [facility] 250-50 mcg/dose 12/15/2019 12:00:00 AM EDT blister with anita ce 60 INHALE ONE PUFF BY MOUTH TWICE A DAY INHALE ONE PUFF BY MOUTH TWICE A DAY SOLD: 03/08/2020 [facility] 250-50 mcg/dose 12/15/2019 12:00:00 AM EDT blister with anita ce 60 INHALE ONE PUFF BY MOUTH TWICE A DAY INHALE ONE PUFF BY MOUTH TWICE A DAY SOLD: 12/16/2019 [facility] atorvastatin 40 MG Oral Tablet ATORVASTATIN CALCIUM 12/03/2019 1 2:00:00 AM EDT tablet 14 TAKE ONE TABLET BY MOUTH EVERY D AY TAKE ONE TABLET BY MOUTH EVERY DAY SOLD: 12/03/2019 [facility] 5 mg 11/15/2019 12:00:00 AM EDT tablet 90 TAKE ONE TABLET BY MOUTH EVERY DAY DIRECTED TAKE ONE TABLET BY MOUTH EVERY DAY DIRECTED SOLD: 11/15/2019 [facility] 20 mg 11/10/2019 12:00:00 AM EDT tablet 120 TAKE TWO TABLETS BY MOUTH EVERY MORNING AND TAKE TWO TABLETS BY MOUTH AT 1:00PM TAKE TWO TABLETS BY MOUTH EVERY MORNING AND TAKE TWO TABLETS BY MOUTH AT 1:00PM SOLD: 06/02/2020 [facility] 20 mg 11/10/2019 12:00:00 AM EDT tablet 120 TAKE TWO TABLETS BY MOUTH EVERY MORNING AND TAKE TWO TABLETS BY MOUTH AT 1:00PM TAKE TWO TABLETS BY MOUTH EVERY MORNING AND TAKE TWO TABLETS BY MOUTH AT 1:00PM SOLD: 02/28/2020 [facility] 20 mg 11/10/2019 12:00:00 AM EDT tablet 120 TAKE TWO TABLETS BY MOUTH EVERY MORNING AND TAKE TWO TABLETS BY MOUTH AT 1:00PM TAKE TWO TABLETS BY MOUTH EVERY MORNING AND TAKE TWO TABLETS BY MOUTH AT 1:00PM SOLD: 04/11/2020 [facility] 20 mg 11/10/2019 12:00:00 AM EDT tablet 120 TAKE TWO TABLETS BY MOUTH EVERY MORNING AND TAKE TWO TABLETS BY MOUTH AT 1:00PM TAKE TWO TABLETS BY MOUTH EVERY MORNING AND TAKE TWO TABLETS BY MOUTH AT 1:00PM SOLD: 12/15/2019 [facility] 20 mg 11/10/2019 12:00:00 AM EDT tablet 120 TAKE TWO TABLETS BY MOUTH EVERY MORNING AND TAKE TWO TABLETS BY MOUTH AT 1:00PM TAKE TWO TABLETS BY MOUTH EVERY MORNING AND TAKE TWO TABLETS BY MOUTH AT 1:00PM SOLD: 11/14/2019 [facility] 20 mg 11/10/2019 12:00:00 AM EDT tablet 120 TAKE TWO TABLETS BY MOUTH EVERY MORNING AND TAKE TWO TABLETS BY MOUTH AT 1:00PM TAKE TWO TABLETS BY MOUTH EVERY MORNING AND TAKE TWO TABLETS BY MOUTH AT 1:00PM SOLD: 01/25/2020 [facility] 250-50 mcg/dose 06/16/2019 12:00:00 AM EDT blister with anita ce 60 INHALE ONE PUFF BY MOUTH TWICE A DAY INHALE ONE PUFF BY MOUTH TWICE A DAY SOLD: 11/15/2019 [facility] 90 mcg/actuation 05/17/2019 12:00:00 AM EST HFA aerosol inha ler 18 INHALE 2 PUFFS BY MOUTH FOUR TIMES DAILY NEEDED INHALE 2 PUFFS BY MOUTH FOUR TIMES DAILY NEEDED SOLD: 05/10/2020 [facility] 90 mcg/actuation 05/17/2019 12:00:00 AM EST HFA aerosol inha ler 18 INHALE 2 PUFFS BY MOUTH FOUR TIMES DAILY NEEDED INHALE 2 PUFFS BY MOUTH FOUR TIMES DAILY NEEDED SOLD: 12/22/2019 [facility] 75 mcg 03/11/2019 12:00:00 AM EST tablet 90 TAKE ONE TABLET BY MOUTH EVERY DAY TAKE ONE TABLET BY MOUTH EVERY DAY SOLD: 12/15/2019 [facility] 5 mg 01/14/2019 12:00:00 AM EDT tablet 90 TAKE 1 & 1/2 TABLETS BY MOUTH ONCE DAILY TAKE 1 & 1/2 TABLETS BY MOUTH ONCE DAILY SOLD: 11/14/2019 [facility] ferrous gluconate 324 MG Oral Tablet ferrous gluconate (FERGON) 324 MG tablet ferrous gluconate (FERGON) 324 MG tablet 324 mg Oral aborted Take 324 mg by mouth daily with breakfast [facility] Aspirin 81 MG Delayed Release Oral Tablet aspirin EC 8 1 MG EC tablet aspirin EC 81 MG EC tablet 81 mg Oral aborted Take 81 mg by mouth daily [facility] 60 ACTUAT Fluticasone propionate 0.25 MG /ACTUAT / salmeterol 0.05 MG/ACTUAT Dry Powder Inhaler fluticasone-salmeterol (ADVAIR) 250-50 MCG/DOSE DISKUS fluticasone-salmeterol (ADVAIR) 250-50 MCG/DOSE DISKUS 1 {puff} Inhalation aborted Inhale 1 puff 2 (two) aurelia es a day [facility] Atenolol 50 MG Oral Tablet atenolol (TENORMIN) 50 MG t ablet atenolol (TENORMIN) 50 MG tablet 50 mg Oral aborted Take 50 mg by mouth daily [facility] Ketorolac Tromethamine 5 MG/ML Ophthalmi c Solution ketorolac (ACULAR) 0.5 % ophthalmic solution ketorolac (ACULAR) 0.5 % ophthalmic solution 1 [drp] aborted 1 drop 4 (four) times a d ay [facility] Amoxicillin 875 MG / Clavulanate 125 MG Oral Tablet Am oxicillin/Clavulanate Potassium ORAL completed [facility] ([facility]) Losartan Potassium 100 MG Oral Tablet losartan (COZAAR ) 100 MG tablet losartan (COZAAR) 100 MG tablet 100 mg Oral aborted Take 100 mg by mouth daily [facility] Amlodipine 5 MG Oral Tablet amLODIPine (NORVASC) 5 MG tablet amLODIPine (NORVASC) 5 MG tablet 7.5 mg Oral aborted Take 7.5 mg by mouth daily [facility] albuterol (PROVENTIL HFA;VENTOLIN HFA) 108 (90 Base) M CG/ACT inhaler [id number] 2 {puff} Inhalation aborted Inhale 2 puffs every 4 (four) hours as needed for wheezing [facility] Aspirin 81 MG Chewable Tablet aspirin 81 MG chewable t ablet aspirin 81 MG chewable tablet 81 mg Oral aborted Chew 81 mg daily [facility] Furosemide 20 MG Oral Tablet furosemide (LASIX) 20 MG tablet furosemide (LASIX) 20 MG tablet 20 mg Oral aborted Take 20 mg by mouth daily [facility] Cyanocobalamin (B-12 PO) drug or medication 500 mg Oral aborted Take 500 mg by mouth daily [facility] Insurance Providers Payer name Policy type / Coverage type Policy ID Covered constitution party ID Covered constitution party's relationship to villafana Policy [place] Plan Information Special Funds [employer] Workers Compensation [id number] SYRO [id number] Self [id number] SYRO [employer] Compensation [id number] SYRO [id number] Self [id number] SYRO COMMERCIAL GENERIC [id number] SYRO Machelle [id number] SYRO Special Funds [employer] Workers Compensation [id number] Self [id number] MEDICARE [id number] SP [id number] MEDICARE [id number] Machelle [id number] W85 MEDICARE [id number] Medicare Natl Govt Servic Medicare Primary [id number] Self [id number] MEDICARE [id number] SP [id number] A Medicare Natl Govt Servic Medicare Primary [id number] Self [id number] Medicare Natl Govt Servic Medicare Primary [id number] Self 5 [id number] Medicare Natl Govt Servic Medicare Primary [id number] Self [id number] Medicare Natl Govt Servic Medicare Primary [id number] Self [id number] Medicare Natl Govt Servic Medicare Primary [id number] Self [id number] Medicare Natl Govt Servic Medicare Primary [id number] Self [id number] Medicare Natl Govt Servic Medicare Primary [id number] Self [id number] Medicare Natl Govt Servic Medicare Primary [id number] Self [id number] Medicare Natl Govt Servic Medicare Primary [id number] Self [id number] Medicare Natl Govt Servic Medicare Primary [id number] Self Medicare [place] Primary [id number] Self [id number] Medicare [place] Primary [id number] Self [id number] Medicare [place] Medicare Primary [id number] Self [id number] Medicare [place] Medicare Primary [id number] Self [id number] Medicare [place] Medicare Primary [id number] Self Medicare [place] Primary [id number] Self [id number] Medicare [place] Medicare Primary [id number] Self [id number] Medicare [place] Medicare Primary [id number] Self [id number] Medicare [place] Medicare Primary [id number] Self [id number] INSURANCE COVID-19 COVID Machelle C OVID INSURANCE COVID-19 COVID Machelle C OVID INSURANCE COVID-19 COVID Machelle C OVID INSURANCE COVID-19 [id number] 2 [id number] INSURANCE COVID-19 COVID Machelle C OVID INSURANCE COVID-19 [id number] xOVID 2 [id number] SPECIAL FUNDS [facility] [id number] SP [id number] P UNAVAILABLE UNAVAILA BLE Medicare Dme Supplies Medigap Part B [id number] Self [id number] MEDICARE C [id number] S [id number] A [place] Primary [id number] Self Medicare Dme Supplies Medigap Part B [id number] Self [id number] Problems, Conditions, and Diagnoses Code Display Name Description Problem Type Effective Dates Data Source(s) Z95.3 Presence of xenogenic heart valve Presence of xe nogenic heart valve Diagnosis 11/09/2020 12:58:50 PM EDT [facility] I10 Essential (primary) hypertension Essential (primary) h ypertension Diagnosis 11/09/2020 12:58:50 PM EDT [facility] Z95.810 Presence of automatic (implantable) card iac defibrillator Presence of automatic (implantable) card Diagnosis 11/09/2020 12:58:50 PM EDT [facility] I25.5 Ischemic cardiomyopathy Ischemic cardiomyopathy Diagno sis 11/09/2020 12:58:50 PM EDT [facility] 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 Atherosclerotic heart disease of crow Diagnosis 11/09/2020 12:58:50 PM EDT [facility] I35.0 Nonrheumatic aortic (valve) stenosis Nonrheumati c aortic (valve) stenosis Diagnosis 10/09/2020 09:09:00 AM EDT [facility] I50.21 Acute systolic (congestive) heart failur e Acute systolic (congestive) heart failur Diagnosis 09/28/2020 01:50:20 PM EDT [facility] 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 Acute combined systolic (congestive) and Diagnosis 09/28/2020 01:50:20 PM EDT [facility] I73.9 Peripheral vascular disease, unspecified Peripheral vascular disease, unspecified Diagnosis 08/02/2020 06:44:00 AM EDT [facility] Z79.01 long term acute care 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 of 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 s residential (current) use of 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 Diagnosis 08/02/2020 06:44:00 AM EDT [facility] Z95.5 Presence of coronary angioplasty implant and graft Presence of coronary angioplasty implant Diagnosis 08/02/2020 06:44:00 AM EDT [facility] I50.32 Chronic diastolic (congestive) heart rui lure Chronic diastolic (congestive) heart rui Diagnosis 07/25/2020 11:10:59 AM EDT [facility] R01.1 Cardiac murmur, unspecified Cardiac murmur, unspecifie d Diagnosis 07/20/2020 07:38:00 AM EDT [facility] I50.22 Chronic systolic dysfunction of left deepthi tricle Chronic systolic dysfunction of left ventricle Problem 10/25/2020 12:00:00 AM EDT [facility] ([facility]) 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 Problem 10/25/2020 12:00:00 AM EDT [facility] ([facility]) I35.0 Aortic valve disorder Aortic valve disorder Problem 10/25/2020 12:00:00 AM EDT [facility] ([facility]) Z95.810 ICD (implantable cardioverter-defibrilla tor) 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 [id number] 10/19/2020 12:00:00 AM EDT [facility] I25.5 Ischemic cardiomyopathy Ischemic cardiomyopathy [id number] 07/20/2020 12:00:00 AM EDT [facility] I50.21 Acute systolic heart failure Acute systolic heart fail ure [id number] 07/20/2020 12:00:00 AM EDT [facility] I10 Essential hypertension, benign Essential hypertension, benign [id number] 07/14/2020 12:00:00 AM EDT [facility] Z95.5 Stented coronary artery Stented coronary artery 185535 01 07/14/2020 12:00:00 AM EDT [facility] I25.10 Atherosclerosis of crow co ronary artery of crow heart without angina pectoris Atherosclerosis of crow coronary arter y of crow heart without angina pectoris [id number] 07/14/2020 12:00:00 AM EDT [facility] I73.9 Peripheral vascular disease, unspecified Peripheral vascular disease, unspecified [id number] 07/14/2020 12:00:00 AM EDT [facility] Z79.01 residential (current) use of 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 s residential (current) use of 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s [id number] 07/14/2020 12:00:00 AM EDT [facility] R01.1 Cardiac murmur Cardiac murmur [id number] 07/14/2020 12:00: 00 AM EDT [facility] 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), 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), bioprosthetic [id number] 07/14/2020 12:00:00 AM EDT [facility] Surgeries/Procedures Procedure Description Date Indications Data Source(s) OFFICE OUTPATIENT VISIT 15 MINUTES 01/03/2021 12:00:00 AM EDT [facility] ([facility]) OFFICE OUTPATIENT VISIT 15 MINUTES 12/20/2020 12:00:00 AM EDT [facility] ([facility]) ECG ROUTINE ECG W/LEAST 12 LDS W/I&R 12/13/2020 12:00: 00 AM EDT [facility] ([facility]) ECG ROUTINE ECG W/LEAST 12 LDS W/I&R 12/13/2020 12:00: 00 AM EDT [facility] ([facility]) OFFICE OUTPATIENT VISIT 25 MINUTES 12/13/2020 12:00:00 AM EDT [facility] ([facility]) OFFICE OUTPATIENT VISIT 25 MINUTES 12/13/2020 12:00:00 AM EDT [facility] ([facility]) OFFICE OUTPATIENT VISIT 15 MINUTES 12/11/2020 12:00:00 AM EDT [facility] ([facility]) ECG ROUTINE ECG W/LEAST 12 LDS W/I&R <td>POCT AMB EKG</td><td>Routine</td><td>11/09/2020 1:29 PM EDT</td><td> Ischemic cardiomyopathy ICD (implantable cardioverter-defibrillator) in place</td><td> </td> 11/09/2020 01:29:00 PM EDT ICD (implantable cardioverter-defibrilla tor) in placeIschemic cardiomyopathy [facility] ICD (implantable cardioverter-defibrilla tor) in place Ischemic cardiomyopathy OFFICE OUTPATIENT VISIT 25 MINUTES 10/25/2020 12:00:00 AM EDT [facility] ([facility]) ECG ROUTINE ECG W/LEAST 12 LDS W/I&R <td>POCT AMB EKG</td><td>Routine</td><td>10/19/2020 9:06 AM EDT</td><td> Nonrheumatic aortic valve stenosis</td><td> </td> 10/19/2020 09:06:00 AM EDT Nonrheumatic aortic valve stenosis [facility] Nonrheumatic aortic valve stenosis BASIC METABOLIC PANEL CALCIUM TOTAL <td>BASIC METABOLI C PANEL</td><td>Routine</td><td>10/18/2020 8:22 PM EDT</td><td></td><td> </td> 10/18/2020 08:22:00 PM EDT [facility] BLOOD COUNT COMPLETE AUTOMATED <td>CBC</td><td>Routine </td><td>10/18/2020 3:54 PM EDT</td><td> Nonrheumatic aortic valve stenosis</td><td> </td> 10/18/2020 03:54:00 PM EDT Nonrheumatic aortic valve stenosis [facility] Nonrheumatic aortic valve stenosis PROTHROMBIN TIME <td>PROTIME-INR</td><td>Rout ine</td><td>10/11/2020 4:07 AM EDT</td><td></td><td> </td> 10/11/2020 04:07:00 AM EDT [facility] BLOOD COUNT COMPLETE AUTOMATED <td>CBC</td><td>Timed</ td><td>10/11/2020 4:07 AM EDT</td><td></td><td> </td> 10/11/2020 04:07:00 AM EDT [facility] BASIC METABOLIC PANEL CALCIUM TOTAL <td>BASIC METABOLI C PANEL</td><td>Timed</td><td>10/11/2020 4:07 AM EDT</td><td></td><td> </td> 10/11/2020 04:07:00 AM EDT [facility] XR CHEST PORTABLE <td>XR CHEST PORTABLE</td><t d>STAT</td><td>10/10/2020 2:38 PM EDT</td><td></td><td> </td> 10/10/2020 02:38:45 PM EDT [facility] POC ARTERIAL BLOOD GAS <td>POC ARTERIAL BLOOD GAS</td><td>Routine</td><td>10/10/2020 2:13 PM EDT</td><td></td><td> </td> 10/10/2020 02:13:00 PM EDT [facility] EP STUDY <td>EP STUDY</td><td>Routine </td><td>10/10/2020 12:55 PM EDT</td><td> Ischemic cardiomyopathy</td><td> </td> 10/10/2020 12:55:00 PM EDT Ischemic cardiomyopathy [facility] Ischemic cardiomyopathy COVID/FLU AB/RSV PCR <td>COVID/FLU AB/RSV PCR</td ><td>STAT</td><td>10/10/2020 10:34 AM EDT</td><td></td><td> </td> 10/10/2020 10:34:00 AM EDT [facility] ECHO TTHRC R-T 2D W/WOM-MODE COMPL SPEC&COLR DOP <td>E CHOCARDIOGRAM TRANSTHORACIC</td><td>Routine</td><td>10/10/2020 10:28 AM EDT</td><td></td><td> </td> 10/10/2020 10:28:16 AM EDT [facility] PROTHROMBIN TIME <td>PROTIME-INR</td><td>Rout ine</td><td>10/10/2020 2:09 AM EDT</td><td></td><td> </td> 10/10/2020 02:09:00 AM EDT [facility] BLOOD COUNT COMPLETE AUTOMATED <td>CBC</td><td>Timed</ td><td>10/10/2020 2:09 AM EDT</td><td></td><td> </td> 10/10/2020 02:09:00 AM EDT [facility] MAGNESIUM <td>MAGNESIUM</td><td>Routin e</td><td>10/10/2020 2:09 AM EDT</td><td></td><td> </td> 10/10/2020 02:09:00 AM EDT [facility] BASIC METABOLIC PANEL CALCIUM TOTAL <td>BASIC METABOLI C PANEL</td><td>Timed</td><td>10/10/2020 2:09 AM EDT</td><td></td><td> </td> 10/10/2020 02:09:00 AM EDT [facility] POC ARTERIAL BLOOD GAS <td>POC ARTERIAL BLOOD GAS</td><td>Routine</td><td>10/09/2020 5:01 PM EDT</td><td></td><td> </td> 10/09/2020 05:01:00 PM EDT [facility] POC ARTERIAL BLOOD GAS <td>POC ARTERIAL BLOOD GAS</td><td>Routine</td><td>10/09/2020 2:12 PM EDT</td><td></td><td> </td> 10/09/2020 02:12:00 PM EDT [facility] XR CHEST PORTABLE <td>XR CHEST PORTABLE</td><t d>STAT</td><td>10/09/2020 2:01 PM EDT</td><td></td><td> </td> 10/09/2020 02:01:29 PM EDT [facility] GLUC BLD GLUC MNTR DEV CLEARED FDA SPEC HOME USE <td>P OCT GLUCOSE</td><td>Routine</td><td>10/09/2020 1:51 PM EDT</td><td></td><td> </td> 10/09/2020 01:51:00 PM EDT [facility] ECG ROUTINE ECG W/LEAST 12 LDS TRCG ONLY W/O I&R <td>E CG 12- LEAD</td><td>Routine</td><td>10/09/2020 1:43 PM EDT</td><td></td><td></td> 10/09/2020 01:43:36 PM EDT [facility] PROTHROMBIN TIME <td>PROTIME-INR</td><td>STAT </td><td>10/09/2020 1:42 PM EDT</td><td></td><td> </td> 10/09/2020 01:42:00 PM EDT [facility] BLOOD COUNT COMPLETE AUTOMATED <td>CBC</td><td>STAT</t d><td>10/09/2020 1:42 PM EDT</td><td></td><td> </td> 10/09/2020 01:42:00 PM EDT [facility] MAGNESIUM <td>MAGNESIUM</td><td>STAT</ td><td>10/09/2020 1:42 PM EDT</td><td></td><td> </td> 10/09/2020 01:42:00 PM EDT [facility] BASIC METABOLIC PANEL CALCIUM TOTAL <td>BASIC METABOLI C PANEL</td><td>STAT</td><td>10/09/2020 1:42 PM EDT</td><td></td><td> </td> 10/09/2020 01:42:00 PM EDT [facility] TRANSCATHETER AORTIC VALVE IMPLANT FEMORAL <td>TRANSCA THETER AORTIC VALVE IMPLANT FEMORAL</td><td>Routine</td><td>10/09/2020 1:05 PM EDT</td><td> Nonrheumatic aortic valve stenosis</td><td></td> 10/09/2020 01:05:00 PM EDT Nonrheumatic aortic valve stenosis [facility] Nonrheumatic aortic valve stenosis POC ACT <td>POC ACT</td><td>Routine< /td><td>10/09/2020 12:35 PM EDT</td><td></td><td> </td> 10/09/2020 12:35:00 PM EDT [facility] POC ARTERIAL BLOOD GAS W LYTES <td>POC ARTERIAL BLOOD GAS W LYTES</td><td>Routine</td><td>10/09/2020 12:35 PM EDT</td><td></td><td> </td> 10/09/2020 12:35:00 PM EDT [facility] POC ACT <td>POC ACT</td><td>Routine< /td><td>10/09/2020 11:43 AM EDT</td><td></td><td> </td> 10/09/2020 11:43:00 AM EDT [facility] POC ARTERIAL BLOOD GAS W LYTES <td>POC ARTERIAL BLOOD GAS W LYTES</td><td>Routine</td><td>10/09/2020 11:43 AM EDT</td><td></td><td> </td> 10/09/2020 11:43:00 AM EDT [facility] ECG TRANSESOPHAG R-T 2D W/PRB IMG ACQUISJ I&R <td>ECHO CARDIOGRAM TRANSESOPHAGEAL</td><td>Routine</td><td>10/09/2020 10:09 AM EDT</td><td></td><td> </td> 10/09/2020 10:09:58 AM EDT [facility] PROTHROMBIN TIME <td>POCT INR</td><td>Routine </td><td>10/09/2020 10:01 AM EDT</td><td></td><td> </td> 10/09/2020 10:01:00 AM EDT [facility] CONFIRMATORY BLOOD TYPE <td>CONFIRMATORY BLOOD TYPE</td><td>Routine</td><td>10/09/2020 10:00 AM EDT</td><td></td><td> </td> 10/09/2020 10:00:00 AM EDT [facility] GLUC BLD GLUC MNTR DEV CLEARED FDA SPEC HOME USE <td>P OCT GLUCOSE</td><td>Routine</td><td>10/09/2020 10:00 AM EDT</td><td></td><td> </td> 10/09/2020 10:00:00 AM EDT [facility] BLOOD TYPING ABO <td>PREPARE RBC</td><td>Rout ine</td><td>10/09/2020 12:01 AM EDT</td><td></td><td> </td> 10/09/2020 12:01:00 AM EDT [facility] ECG ROUTINE ECG W/LEAST 12 LDS TRCG ONLY W/O I&R <td>E CG 12- LEAD</td><td>Routine</td><td>10/04/2020 9:02 AM EDT</td><td> Nonrheumatic aortic valve stenosis</td><td></td> 10/04/2020 09:02:13 AM EDT Nonrheumatic aortic valve stenosis [facility] Nonrheumatic aortic valve stenosis ROOM TEMP AB SCREEN <td>ROOM TEMP AB SCREEN</td> <td>Routine</td><td>10/04/2020 8:30 AM EDT</td><td> Nonrheumatic aortic valve stenosis</td><td> </td> 10/04/2020 08:30:00 AM EDT Nonrheumatic aortic valve stenosis [facility] Nonrheumatic aortic valve stenosis NT PRO BNP <td>NT PRO BNP</td><td>Routi ne</td><td>10/04/2020 8:30 AM EDT</td><td> Nonrheumatic aortic valve stenosis</td><td> </td> 10/04/2020 08:30:00 AM EDT Nonrheumatic aortic valve stenosis [facility] Nonrheumatic aortic valve stenosis THROMBOPLASTIN TIME PARTIAL PLASMA/WHOLE BLOOD <td>APTT</td><td>Routine</td><td>10/04/2020 8:30 AM EDT</td><td> Nonrheumatic aortic valve stenosis</td><td> </td> 10/04/2020 08:30:00 AM EDT Nonrheumatic aortic valve stenosis [facility] Nonrheumatic aortic valve stenosis PROTHROMBIN TIME <td>PROTIME-INR</td><td>Rout ine</td><td>10/04/2020 8:30 AM EDT</td><td> Nonrheumatic aortic valve stenosis</td><td> </td> 10/04/2020 08:30:00 AM EDT Nonrheumatic aortic valve stenosis [facility] Nonrheumatic aortic valve stenosis BLOOD COUNT COMPLETE AUTO&AUTO DIFRNTL WBC COUNT <td>C BC AND DIFFERENTIAL</td><td>Routine</td><td>10/04/2020 8:30 AM EDT</td><td> Nonrheumatic aortic valve stenosis</td><td> </td> 10/04/2020 08:30:00 AM EDT Nonrheumatic aortic valve stenosis [facility] Nonrheumatic aortic valve stenosis BLOOD TYPING ABO <td>TYPE AND SCREEN</td><td> Routine</td><td>10/04/2020 8:30 AM EDT</td><td> Nonrheumatic aortic valve stenosis</td><td> </td> 10/04/2020 08:30:00 AM EDT Nonrheumatic aortic valve stenosis [facility] Nonrheumatic aortic valve stenosis HEMOGLOBIN GLYCOSYLATED A1C <td>HEMOGLOBIN A1C</td><td>Routine</td><td>10/04/2020 8:30 AM EDT</td><td> Nonrheumatic aortic valve stenosis</td><td> </td> 10/04/2020 08:30:00 AM EDT Nonrheumatic aortic valve stenosis [facility] Nonrheumatic aortic valve stenosis COMPREHENSIVE METABOLIC PANEL <td>COMPREHENSIVE METABO LIC PANEL</td><td>Routine</td><td>10/04/2020 8:30 AM EDT</td><td> Nonrheumatic aortic valve stenosis</td><td> </td> 10/04/2020 08:30:00 AM EDT Nonrheumatic aortic valve stenosis [facility] Nonrheumatic aortic valve stenosis URNLS DIP STICK/TABLET RGNT AUTO W/O MICROSCOPY <td>UR INALYSIS W/O MICRO</td><td>Routine</td><td>10/04/2020 7:45 AM EDT</td><td> Nonrheumatic aortic valve stenosis</td><td> </td> 10/04/2020 07:45:00 AM EDT Nonrheumatic aortic valve stenosis [facility] Nonrheumatic aortic valve stenosis ECG ROUTINE ECG W/LEAST 12 LDS W/I&R <td>POCT AMB EKG</td><td>Routine</td><td>09/28/2020 3:01 PM EDT</td><td> 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 Ischemic cardiomyopathy Nonrheumatic aortic valve stenosis</td><td> </td> 09/28/2020 03:01:00 PM EDT Nonrheumatic aortic valve stenosisIschem ic cardiomyopathy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 [facility] Nonrheumatic aortic valve stenosis Ischemic cardiomyopathy Atherosclerosis of crow coronary arter y of crow heart without angina pectoris OFFICE OUTPATIENT VISIT 15 MINUTES 09/04/2020 12:00:00 AM EDT [facility] [facility], [place], [facility]) OFFICE OUTPATIENT NEW 30 MINUTES 08/23/2020 12:00:00 A M EDT [facility] ([facility], [place], [facility]) ECG ROUTINE ECG W/LEAST 12 LDS W/I&R <td>POCT AMB EKG</td><td>Routine</td><td>08/10/2020 4:43 PM EDT</td><td> Ischemic cardiomyopathy</td><td> </td> 08/10/2020 04:43:00 PM EDT Ischemic cardiomyopathy [facility] Ischemic cardiomyopathy OFFICE OUTPATIENT VISIT 25 MINUTES 08/07/2020 12:00:00 AM EDT [facility] ([facility]) ECG ROUTINE ECG W/LEAST 12 LDS TRCG ONLY W/O I&R <td>E CG 12- LEAD</td><td>Routine</td><td>08/02/2020 10:48 AM EDT</td><td></td><td></td> 08/02/2020 10:48:46 AM EDT [facility] RADEX SPINE ENTIRE SURVEY STD ANTEROPOST&LAT <td>CARDI AC CATHETERIZATION</td><td>Routine</td><td>08/02/2020 10:06 AM EDT</td><td> Aortic stenosis, severe 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 Acute systolic heart failure Ischemic cardiomyopathy Stented coronary artery long term acute care 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 of 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s Peripheral vascular disease, unspecified Essential hypertension, benign</td><td> </td> 08/02/2020 10:06:59 AM EDT Essential hypertension, benignPeripheral vascular disease, unspecifiedLong term (current) use of 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sStented coronary arteryIschemic cardiomyopathyAcute systolic heart failure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Aortic stenosis, severe [facility] Essential hypertension, benign Peripheral vascular disease, unspecified residential (current) use of 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 s Stented coronary artery Ischemic cardiomyopathy Acute systolic heart failure Atherosclerosis of crow coronary arter y of crow heart without angina pectoris Aortic stenosis, severe PROTHROMBIN TIME <td>POCT INR</td><td>Routine </td><td>08/02/2020 7:36 AM EDT</td><td></td><td> </td> 08/02/2020 07:36:00 AM EDT [facility] ECG ROUTINE ECG W/LEAST 12 LDS TRCG ONLY W/O I&R <td>E CG 12- LEAD</td><td>Routine</td><td>08/02/2020 7:21 AM EDT</td><td></td><td></td> 08/02/2020 07:21:32 AM EDT [facility] ECG ROUTINE ECG W/LEAST 12 LDS W/I&R <td>POCT AMB EKG</td><td>Routine</td><td>07/25/2020 11:47 AM EDT</td><td> Aortic stenosis, severe Ischemic cardiomyopathy</td><td> </td> 07/25/2020 11:47:00 AM EDT Ischemic cardiomyopathyAortic stenosis, severe [facility] Ischemic cardiomyopathy Aortic stenosis, severe PROTHROMBIN TIME <td>POCT INR</td><td>Routine</td><td>07/25/2020</td><td></td><td> </td> 07/25/2020 12:00:00 AM EDT [facility] POTASSIUM SERUM PLASMA/WHOLE BLOOD <td>POTASSIUM</td><td>Timed</td><td>07/21/2020 12:27 PM EDT</td><td></td><td> </td> 07/21/2020 12:27:00 PM EDT [facility] MAGNESIUM <td>MAGNESIUM</td><td>Timed< /td><td>07/21/2020 12:27 PM EDT</td><td></td><td> </td> 07/21/2020 12:27:00 PM EDT [facility] BLOOD COUNT COMPLETE AUTOMATED <td>CBC</td><td>Timed</ td><td>07/21/2020 4:46 AM EDT</td><td></td><td> </td> 07/21/2020 04:46:00 AM EDT [facility] MAGNESIUM <td>MAGNESIUM</td><td>Timed< /td><td>07/21/2020 4:46 AM EDT</td><td></td><td> </td> 07/21/2020 04:46:00 AM EDT [facility] BASIC METABOLIC PANEL CALCIUM TOTAL <td>BASIC METABOLI C PANEL</td><td>Timed</td><td>07/21/2020 4:46 AM EDT</td><td></td><td> </td> 07/21/2020 04:46:00 AM EDT [facility] POTASSIUM SERUM PLASMA/WHOLE BLOOD <td>POTASSIUM</td>< td>STAT</td><td>07/20/2020 10:02 PM EDT</td><td></td><td> </td> 07/20/2020 10:02:00 PM EDT [facility] MAGNESIUM <td>MAGNESIUM</td><td>STAT</ td><td>07/20/2020 10:02 PM EDT</td><td></td><td> </td> 07/20/2020 10:02:00 PM EDT [facility] CUL BACT XCPT URINE BLOOD/STOOL AEROBIC ISOL <td>SPUTU M CULTURE</td><td>Routine</td><td>07/20/2020 4:20 PM EDT</td><td></td><td></td> 07/20/2020 04:20:00 PM EDT [facility] PROTHROMBIN TIME <td>PROTIME-INR</td><td>Rout ine</td><td>07/20/2020 3:17 PM EDT</td><td></td><td> </td> 07/20/2020 03:17:00 PM EDT [facility] RADEX SPINE ENTIRE SURVEY STD ANTEROPOST&LAT <td>CARDI AC CATHETERIZATION</td><td>Routine</td><td>07/20/2020 2:51 PM EDT</td><td> Aortic stenosis, severe Cardiac murmur residential (current) use of 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s Peripheral vascular disease, unspecified 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 Stented coronary artery Essential hypertension, benign</td><td></td> 07/20/2020 02:51:45 PM EDT Essential hypertension, benignStented coronary artery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Peripheral vascular disease, unspecifiedLong term (current) use of 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sCardiac murmur Aortic stenosis, severe [facility] Essential hypertension, benign Stented coronary artery Atherosclerosis of crow coronary arter y of crow heart without angina pectoris Peripheral vascular disease, unspecified 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 term 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 care 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 of 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 s Cardiac murmur Aortic stenosis, severe ECHO TTHRC R-T 2D W/WOM-MODE COMPL SPEC&COLR DOP <td>E CHOCARDIOGRAM TRANSTHORACIC</td><td>STAT</td><td>07/20/2020 1:21 PM EDT</td><td></td><td> </td> 07/20/2020 01:21:55 PM EDT [facility] XR CHEST PORTABLE <td>XR CHEST PORTABLE</td><t d>STAT</td><td>07/20/2020 1:07 PM EDT</td><td></td><td> </td> 07/20/2020 01:07:10 PM EDT [facility] ECG ROUTINE ECG W/LEAST 12 LDS TRCG ONLY W/O I&R <td>E CG 12- LEAD</td><td>Routine</td><td>07/20/2020 12:43 PM EDT</td><td></td><td></td> 07/20/2020 12:43:44 PM EDT [facility] TROPONIN QUANTITATIVE <td>TROPONIN I</td><td>STAT< /td><td>07/20/2020 12:14 PM EDT</td><td></td><td> </td> 07/20/2020 12:14:00 PM EDT [facility] BLOOD COUNT COMPLETE AUTO&AUTO DIFRNTL WBC COUNT <td>C BC AND DIFFERENTIAL</td><td>STAT</td><td>07/20/2020 12:14 PM EDT</td><td></td><td> </td> 07/20/2020 12:14:00 PM EDT [facility] BASIC METABOLIC PANEL CALCIUM TOTAL <td>BASIC METABOLI C PANEL</td><td>STAT</td><td>07/20/2020 12:14 PM EDT</td><td></td><td> </td> 07/20/2020 12:14:00 PM EDT [facility] PROTHROMBIN TIME <td>POCT INR</td><td>Routine </td><td>07/20/2020 8:22 AM EDT</td><td></td><td> </td> 07/20/2020 08:22:00 AM EDT [facility] ECG ROUTINE ECG W/LEAST 12 LDS TRCG ONLY W/O I&R <td>E CG 12- LEAD</td><td>Routine</td><td>07/20/2020 8:01 AM EDT</td><td></td><td></td> 07/20/2020 08:01:36 AM EDT [facility] ECG ROUTINE ECG W/LEAST 12 LDS W/I&R 03/10/2020 12:00: 00 AM EST [facility] ([facility]) Results ID Date Data Source [id number] 01/05/2021 12:14:00 PM EDT [facility] ([facility]) Name Value Range Interpretation Code Description Data Debbie rce(s) Supporting Document(s) Erythrocytes [#/volume] in Blood by Automated count 4.90 x10*6/UL 4.2 0-6.30 [facility] ([facility]) Leukocytes [#/volume] in Blood by Automated count 9.1 x10*3/UL 4.1-10 .9 [facility] ([facility]) Hemoglobin [Mass/volume] in Blood 13.0 g/dL 12.0-18.0 [facility] ([facility]) MCH 26.5 pg 26.0-32.0 [facility]) MCV 81.7 fL 80.0-97.0 [facility]) Hematocrit [Volume Fraction] of Blood by Automated count 40.0 % 3 7.0-51.0 [facility] ([facility]) MCHC 32.5 g/dL 31.0-38.0 [facility]) Erythrocyte distribution width [Ratio] by Automated count 14.6 % 11.6-13.7 [facility] ([facility]) Platelets [#/volume] in Blood by Automated count 365 x10*3/UL 140-440 [facility] ([facility]) MPV 8.6 FL 7.8-11.0 [facility]) Mid % 5.3 % 1.7-9.3 [facility] Lymph % 13.6 % 10.0-58.5 [facility]) Mid # 0.5 x10*3/UL 0.1-0.6 [facility] ([facility]) Neut % 81.1 % 37.0-92.0 [facility]) Lymph # 1.2 x10*3/UL 0.6-4.1 [facility] ([facility]) Neut # 7.4 x10*3/UL 2.0-7.8 [facility] ([facility]) ID Date Data Source [id number] 01/05/2021 12:14:00 PM EDT [facility] ([facility]) Name Value Range Interpretation Code Description Data Debbie rce(s) Supporting Document(s) Thyrotropin [Units/volume] in Serum or Plasma by Detec tion limit <= 0.05 mIU/L 4.53 uIU/mL 0.36-3.74 [facility] ID Date Data Source [id number] 01/05/2021 12:14:00 PM EDT [facility] Name Value Range Interpretation Code Description Data Debbie rce(s) Supporting Document(s) Cholesterol [Mass/volume] in Serum or Plasma 133 mg/dL 131-200 [facility] ([facility]) Cholesterol in LDL [Mass/volume] in Serum or Plasma by calcu lation 69 CALC 50-159 [facility] ([facility]) Cholesterol in HDL [Mass/volume] in Serum or Plasma 47 mg/dL 35-60 [facility] ([facility]) Triglyceride [Mass/volume] in Serum or Plasma 85 mg/dL 30-150 [facility] ([facility]) ID Date Data Source [id number] 01/05/2021 12:14:00 PM EDT [facility] ([facility]) Name Value Range Interpretation Code Description Data Debbie rce(s) Supporting Document(s) Glucose [Mass/volume] in Serum or Plasma 100 mg/dL 74-99 [facility] ([facility]) 100-125 mg/dL PRE-DIABETES/FASTING >126 mg/dL DIABETES/FASTING Sodium [Moles/volume] in Serum or Plasma 145 meq/L 136-145 [facility] ([facility]) Urea nitrogen [Mass/volume] in Serum or Plasma 21 mg/dL 7-18 [facility] ([facility]) Creatinine 1.2 mg/dL 0.6-1.3 [facility] ([facility]) Carbon dioxide, total [Moles/volume] in Serum or Plasma 27 meq/L 21 -32 [facility] ([facility]) Potassium [Moles/volume] in Serum or Plasma 4.4 meq/L 3.5-5.1 [facility] ([facility]) Chloride [Moles/volume] in Serum or Plasma 109 meq/L 98-107 [facility] ([facility]) Calcium [Mass/volume] in Serum or Plasma 9.5 mg/dL 8.5-10.1 [facility] ([facility]) Alkaline phosphatase isoenzyme [Units/volume] in Serum or Pl asma 174 mg/dL 46-116 [facility] ([facility]) Aspartate aminotransferase [Enzymatic activity/volume] in Serum or Plasma 20 U/L 15-37 [facility] ([facility] ) Alanine aminotransferase [Enzymatic activity/volume] in Seru m or Plasma 27 U/L 12-78 [facility] ([facility]) Total Bilirubin 0.8 mg/dL 0.2-1.0 [facility] ([facility]) Proteinase 3 Ab [Units/volume] in Serum 7.5 g/dL 6.4-8.2 [facility] ([facility]) Albumin [Mass/volume] in Serum or Plasma 3.5 g/dL 3.4-5.0 [facility] ([facility]) A/G Ratio 0.88 CALC 1.00-1.90 [facility] ([facility]) Glomerular filtration rate/1.73 sq M pre dicted among non-blacks [Volume Rate/Area] in Serum or Plasma by Creatinine-based formula (MDRD) 58 mL/min [facility] Glomerular filtration rate/1.73 sq M pre dicted among blacks [Volume Rate/Area] in Serum or Plasma by Creatinine-based formula (MDRD) Laboratory test result [facility] ([facility]) <content>CHRONIC KIDNEY DISEASE STAGING PER NKF</content>
<content></content>
<content>STAGE I & II GFR >= 60 NORMAL TO MILDLY DECREASED</content>
<content>STAGE III GFR 30-59 MODERATELY DECREASED</content>
<content>STAGE IV GFR 15-29 SEVERELY DECREASED</content>
<content>STAGE V GFR <15 VERY LITTLE GFR LEFT</content>
<content>ESRD GFR <15 ON LEAD SUPPLY WORKER</content>
<content></content> ID Date Data Source [id number] 01/05/2021 12:14:00 PM EDT [facility] Name Value Range Interpretation Code Description Data Debbie rce(s) Supporting Document(s) Magnesium 2.1 mg/dL 1.8-2.4 [facility] ([facility]) ID Date Data Source [id number] 01/03/2021 11:56:00 AM EDT [facility] Name Value Range Interpretation Code Description Data Debbie rce(s) Supporting Document(s) INR in Platelet poor plasma by Coagulation assay 1.9 [facility] ID Date Data Source [id number] 12/27/2020 08:22:00 AM EDT [facility] ([facility]) Name Value Range Interpretation Code Description Data Debbie rce(s) Supporting Document(s) INR in Platelet poor plasma by Coagulation assay 1.9 [facility] ID Date Data Source [id number] 12/20/2020 08:46:00 AM EDT [facility] ([facility]) Name Value Range Interpretation Code Description Data Debbie rce(s) Supporting Document(s) INR in Platelet poor plasma by Coagulation assay 1.9 [facility] ([facility]) ID Date Data Source [id number] 12/20/2020 08:33:00 AM EDT [facility] ([facility]) Name Value Range Interpretation Code Description Data Debbie rce(s) Supporting Document(s) Leukocytes [#/volume] in Blood by Automated count 11.6 x10*3/UL 4.1-1 0.9 [facility] ([facility]) NOTE: RESULT VERIFIED. Erythrocytes [#/volume] in Blood by Automated count 4.90 x10*6/UL 4.2 0-6.30 [facility] ([facility]) Hematocrit [Volume Fraction] of Blood by Automated count 40.7 % 3 7.0-51.0 [facility] ([facility]) Hemoglobin [Mass/volume] in Blood 13.5 g/dL 12.0-18.0 [facility] ([facility]) MCV 83.0 fL 80.0-97.0 [facility]) MCH 27.7 pg 26.0-32.0 [facility] MCHC 33.3 g/dL 31.0-38.0 [facility]) Erythrocyte distribution width [Ratio] by Automated count 14.5 % 11.6-13.7 [facility] ([facility]) Platelets [#/volume] in Blood by Automated count 298 x10*3/UL 140-440 [facility] ([facility]) MPV 9.0 FL 7.8-11.0 [facility]) Mid % 3.1 % 1.7-9.3 [facility] Neut % 87.4 % 37.0-92.0 [facility] Lymph % 9.5 % 10.0-58.5 [facility] Mid # 0.4 x10*3/UL 0.1-0.6 [facility] ([facility]) Lymph # 1.1 x10*3/UL 0.6-4.1 [facility] ([facility]) Neut # 10.1 x10*3/UL 2.0-7.8 [facility] ([facility]) ID Date Data Source [id number] 12/20/2020 08:33:00 AM EDT [facility] ([facility]) Name Value Range Interpretation Code Description Data Debbie rce(s) Supporting Document(s) Glucose [Mass/volume] in Serum or Plasma 108 mg/dL 74-99 [facility] ([facility]) 100-125 mg/dL PRE-DIABETES/FASTING >126 mg/dL DIABETES/FASTING Urea nitrogen [Mass/volume] in Serum or Plasma 28 mg/dL 7-18 [facility] ([facility]) Creatinine 1.5 mg/dL 0.6-1.3 [facility] ([facility]) Sodium [Moles/volume] in Serum or Plasma 143 meq/L 136-145 [facility] ([facility]) Potassium [Moles/volume] in Serum or Plasma 4.3 meq/L 3.5-5.1 [facility] ([facility]) Chloride [Moles/volume] in Serum or Plasma 105 meq/L 98-107 [facility] ([facility]) Calcium [Mass/volume] in Serum or Plasma 10.0 mg/dL 8.5-10.1 [facility] ([facility]) Carbon dioxide, total [Moles/volume] in Serum or Plasma 28 meq/L 21 -32 [facility] ([facility]) Glomerular filtration rate/1.73 sq M pre dicted among blacks [Volume Rate/Area] in Serum or Plasma by Creatinine-based formula (MDRD) 54 mL/min [facility] ([facility]) <content>CHRONIC KIDNEY DISEASE STAGING PER NKF</content>
<content></content>
<content>STAGE I & II GFR >= 60 NORMAL TO MILDLY DECREASED</content>
<content>STAGE III GFR 30-59 MODERATELY DECREASED</content>
<content>STAGE IV GFR 15-29 SEVERELY DECREASED</content>
<content>STAGE V GFR <15 VERY LITTLE GFR LEFT</content>
<content>ESRD GFR <15 ON LEAD SUPPLY WORKER</content>
<content></content> Glomerular filtration rate/1.73 sq M pre dicted among non-blacks [Volume Rate/Area] in Serum or Plasma by Creatinine-based formula (MDRD) 45 mL/min [facility] ([facility]) ID Date Data Source [id number] 12/20/2020 08:00:00 AM EDT [facility] ([facility]) Name Value Range Interpretation Code Description Data Debbie rce(s) Supporting Document(s) Bacteria identified in Urine by Culture Laboratory [facility] <content>FULL RE[facility] NOTES [facility]</content>
<content></content>
<content>ORGANISM 1: ESCHERICHIA COLI</content>
<content></content>
<content>COLONY COUNT > 100,000</content>
<content></content>
<content></content>
<content>O RGANISM 1: ESCHERICHIA COLI</content>
<content></content>
<content> ESCHERICHIA COLI: REACTION</content>
<content>TRIMETHOPRIM/SULFAMETHOXAZOLE IV 160mg TMP & 800mg SMXq6h <=20 S</content>
<content> TRIMETHOPRIM/SULFAMETHOXAZOLE PO Bactrim DS Bid <=20 S</content>
<content>AMPICILLIN IV 500mg q6h <=2 S</content>
<content>AMPICILLIN PO 500mg q6h fasting <=2 S</content>
<content>GENTAMICIN IV 80mg q8h <=1 S</content>
<content>NITROFURANTOIN PO 100mg BID <=16 S</content>
<content>CEFAZOLIN IV 1gm q8h <=4 S</content>
<content> LEVOFLOXACIN IV 500mg qd <=0.12 S</content>
<content>LEVOFLOXACIN PO 250mg qd <=0.12 S</content>
<content>LEVOFLOXACIN PO 500mg qd <=0.12 S</content>
<content>TOBRAMYCIN IV 80mg q8h <=1 S</content>
<content>CEFTRIAXONE IV 1gm q24h <=1 S</content>
<content>CEFTAZIDIME IV 1gm q8h <=1 S</content>
<content> AMPICILLIN/SULBACTAM IV 1.5g q6h <=2 S</content>
<content>PIPERACILLIN/TAZOBACTAM IV 2.25 gm q6h <=4 S</content>
<content>AZTREONAM IV 1gm q8h <=1 S</content>
<content>ERTAPENEM IV 1gm qd <=0.5 S</content>
<content>MEROPENEM IV 1 gm q8h <=0.25 S</content>
<content>MEROPENEM IV 500 mg q8h <=0.25 S</content>
<content> TIGECYCLINE IV 50mg q12h <=0.5 S</content>
<content>CEFEPIME IV 1 gm q12h <=1 S</content>
<content>CEFEPIME IV 2 gm q12h <=1 S</content>
<content>EXTD BRD SPCTRM BETA LACTAMASE IV NEGATIVE FOR ESBL</content>
<content></content> ID Date Data Source [id number] 12/20/2020 07:51:00 AM EDT [facility] ([facility]) Name Value Range Interpretation Code Description Data Debbie rce(s) Supporting Document(s) Urine Color Laboratory test result [facility] ([facility]) Urine PH 6.0 units 5.0-9.0 [facility]) Urine Appearance Laboratory test result Abnormal (applies to non-numeric results) [facility] ([facility]) Specific gravity of Urine 1.010 1.005-1.030 [facility] Urine Blood Laboratory test result Abnormal (applies to non-numeric results) [facility] Urine Leukocytes Laboratory test result Abnormal (applies to non-numeric results) [facility] ([facility]) Urine Protein Laboratory test result 0-0 Abnormal (applies to non-numeric results) [facility] Glucose [Presence] in Urine Laboratory test result [facility] Urine Nitrite Laboratory test result Abnormal (applies to non-numeric results) [facility] ([facility]) Urine Ketone Laboratory test result [facility] Bilirubin.total [Mass/volume] in Serum or Plasma Laboratory test resu lt [facility] Urine Urobilinogen 0.2 mg/dL 0.2-1.0 [facility] ([facility]) ID Date Data Source [id number] 12/13/2020 03:22:00 PM EDT [facility] ([facility]) Name Value Range Interpretation Code Description Data Debbie rce(s) Supporting Document(s) INR in Platelet poor plasma by Coagulation assay 4.8 [facility] ID Date Data Source [id number] 12/13/2020 03:03:00 PM EDT [facility] ([facility]) Name Value Range Interpretation Code Description Data Debbie rce(s) Supporting Document(s) Magnesium 1.5 mg/dL 1.8-2.4 [facility] ID Date Data Source [id number] 12/13/2020 03:03:00 PM EDT [facility] ([facility]) Name Value Range Interpretation Code Description Data Debbie rce(s) Supporting Document(s) Glucose [Mass/volume] in Serum or Plasma 120 mg/dL 74-99 [facility] 100-125 mg/dL PRE-DIABETES/FASTING >126 mg/dL DIABETES/FASTING Urea nitrogen [Mass/volume] in Serum or Plasma 18 mg/dL 7-18 [facility] Sodium [Moles/volume] in Serum or Plasma 142 meq/L 136-145 [facility] ([facility]) Creatinine 1.2 mg/dL 0.6-1.3 [facility] ([facility]) Potassium [Moles/volume] in Serum or Plasma 3.5 meq/L 3.5-5.1 [facility] ([facility]) Chloride [Moles/volume] in Serum or Plasma 106 meq/L 98-107 [facility] ([facility]) Carbon dioxide, total [Moles/volume] in Serum or Plasma 28 meq/L 21 -32 [facility] ([facility]) Glomerular filtration rate/1.73 sq M pre dicted among non-blacks [Volume Rate/Area] in Serum or Plasma by Creatinine-based formula (MDRD) 58 mL/min [facility] Glomerular filtration rate/1.73 sq M pre dicted among blacks [Volume Rate/Area] in Serum or Plasma by Creatinine-based formula (MDRD) Laboratory test result [facility] <content>CHRONIC KIDNEY DISEASE STAGING PER NKF</content>
<content></content>
<content>STAGE I & II GFR >= 60 NORMAL TO MILDLY DECREASED</content>
<content>STAGE III GFR 30-59 MODERATELY DECREASED</content>
<content>STAGE IV GFR 15-29 SEVERELY DECREASED</content>
<content>STAGE V GFR <15 VERY LITTLE GFR LEFT</content>
<content>ESRD GFR <15 ON LEAD SUPPLY WORKER</content>
<content></content> Calcium [Mass/volume] in Serum or Plasma 9.3 mg/dL 8.5-10.1 [facility] ([facility]) ID Date Data Source [id number] 12/13/2020 03:03:00 PM EDT [facility] ([facility]) Name Value Range Interpretation Code Description Data Debbie rce(s) Supporting Document(s) Erythrocytes [#/volume] in Blood by Automated count 4.67 x10*6/UL 4.2 0-6.30 [facility] Leukocytes [#/volume] in Blood by Automated count 14.4 x10*3/UL 4.1-1 0.9 [facility] NOTE: RESULT VERIFIED. Hemoglobin [Mass/volume] in Blood 13.0 g/dL 12.0-18.0 [facility] ([facility]) MCV 83.2 fL 80.0-97.0 [facility] Hematocrit [Volume Fraction] of Blood by Automated count 38.8 % 3 7.0-51.0 [facility] ([facility]) MCH 27.9 pg 26.0-32.0 [facility] center) MCHC 33.6 g/dL 31.0-38.0 [facility] ([facility]) Erythrocyte distribution width [Ratio] by Automated count 14.5 % 11.6-13.7 [facility] Platelets [#/volume] in Blood by Automated count 270 x10*3/UL 140-440 [facility] ([facility]) MPV 9.4 FL 7.8-11.0 [facility] ([facility] Mid % 3.1 % 1.7-9.3 [facility] ([facility] Lymph % 8.9 % 10.0-58.5 [facility] ([facility] Neut % 88.0 % 37.0-92.0 [facility] ([facility]) Mid # 0.5 x10*3/UL 0.1-0.6 [facility] ([facility]) Lymph # 1.2 x10*3/UL 0.6-4.1 [facility] ([facility]) Neut # 12.7 x10*3/UL 2.0-7.8 [facility] ([facility]) ID Date Data Source [id number] 12/04/2020 10:30:00 AM EDT [facility] ([facility]) Name Value Range Interpretation Code Description Data Debbie rce(s) Supporting Document(s) Potassium [Moles/volume] in Serum or Plasma 3.9 meq/L 3.5-5.1 [facility] ([facility]) ID Date Data Source [id number] 11/30/2020 01:55:00 PM EDT [facility] ([facility]) Name Value Range Interpretation Code Description Data Debbie rce(s) Supporting Document(s) Magnesium 1.3 mg/dL 1.8-2.4 [facility] ([facility] ID Date Data Source [id number] 11/30/2020 01:55:00 PM EDT [facility] ([facility]) Name Value Range Interpretation Code Description Data Debbie rce(s) Supporting Document(s) Glucose [Mass/volume] in Serum or Plasma 94 mg/dL 74-99 [facility] ([facility]) 100-125 mg/dL PRE-DIABETES/FASTING >126 mg/dL DIABETES/FASTING Urea nitrogen [Mass/volume] in Serum or Plasma 17 mg/dL 7-18 [facility] ([facility]) Creatinine 1.1 mg/dL 0.6-1.3 [facility] ([facility]) Sodium [Moles/volume] in Serum or Plasma 145 meq/L 136-145 [facility] ([facility]) Potassium [Moles/volume] in Serum or Plasma 2.9 meq/L 3.5-5.1 [facility] ([facility]) NOTE: RESULT VERIFIED. Carbon dioxide, total [Moles/volume] in Serum or Plasma 30 meq/L 21 -32 [facility] ([facility]) Chloride [Moles/volume] in Serum or Plasma 104 meq/L 98-107 [facility] ([facility]) Glomerular filtration rate/1.73 sq M pre dicted among non-blacks [Volume Rate/Area] in Serum or Plasma by Creatinine-based formula (MDRD) Laboratory test result [facility] ([facility] ) Calcium [Mass/volume] in Serum or Plasma 9.3 mg/dL 8.5-10.1 [facility] ([facility]) Glomerular filtration rate/1.73 sq M pre dicted among blacks [Volume Rate/Area] in Serum or Plasma by Creatinine-based formula (MDRD) Laboratory test result [facility] ([facility]) <content>CHRONIC KIDNEY DISEASE STAGING PER NKF</content>
<content></content>
<content>STAGE I & II GFR >= 60 NORMAL TO MILDLY DECREASED</content>
<content>STAGE III GFR 30-59 MODERATELY DECREASED</content>
<content>STAGE IV GFR 15-29 SEVERELY DECREASED</content>
<content>STAGE V GFR <15 VERY LITTLE GFR LEFT</content>
<content>ESRD GFR <15 ON LEAD SUPPLY WORKER</content>
<content></content> ID Date Data Source [id number] 11/30/2020 08:07:00 AM EDT [facility] ([facility]) Name Value Range Interpretation Code Description Data Debbie rce(s) Supporting Document(s) INR in Platelet poor plasma by Coagulation assay 3.1 [facility] ([facility]) ID Date Data Source [id number] 11/20/2020 04:34:20 PM EDT [facility] Name Value Range Interpretation Code Description Data Debbie rce(s) Supporting Document(s) &PDF [facility] CJLDSi1yGgNHMcYb62/ISZnoLODfn7WiMIjoNBg4XRptTJJuL8VnyXxlXRIVRZLPMnnZSVdKXP9WMXTX 0b3 [file] ICAgICAgICAgICAgICAgICAgICAgICAgICAgICAgIC AgICAgICAgICAgICAgICAgICAgICAgICAgICANCiAgICAgICAgICAgICAgICAgICAgICAgICAgICAgIC AgICAgICAgICAgICAgICAgICAgICAgICAgICAgICAgICAgICAgICAgICAgICAgICAgICAgICAgICAgIC AgICAgICAgICANCiAgICAgICAgICAgICAgICAgICAg ICAgICAgICAgICAgICAgICAgICAgICAgICAgICAgICAgICAgICAgICAgICAgICAgICAgICAgICAgICAg ICAgICAgICAgICAgICAgICAgICANCiAgICAgICAgICAgICAgICAgICAgICAgICAgICAgICAgICAgICAg ICAgICAgICAgICAgICAgICAgICAgICAgICAgICAgIC AgICAgICAgICAgICAgICAgICAgICAgICAgICAgICANCiAgICAgICAgICAgICAgICAgICAgICAgICAgIC AgICAgICAgICAgICAgICAgICAgICAgICAgICAgICAgICAgICAgICAgICAgICAgICAgICAgICAgICAgIC AgICAgICAgICAgICANCiAgICAgICAgICAgICAgICAg ICAgICAgICAgICAgICAgICAgICAgICAgICAgICAgICAgICAgICAgICAgICAgICAgICAgICAgICAgICAg ICAgICAgICAgICAgICAgICAgICAgICANCiAgICAgICAgICAgICAgICAgICAgICAgICAgICAgICAgICAg ICAgICAgICAgICAgICAgICAgICAgICAgICAgICAgIC AgICAgICAgICAgICAgICAgICAgICAgICAgICAgICAgICANCiAgICAgICAgICAgICAgICAgICAgICAgIC AgICAgICAgICAgICAgICAgICAgICAgICAgICAgICAgICAgICAgICAgICAgICAgICAgICAgICAgICAgIC AgICAgICAgICAgICAgICANCiAgICAgICAgICAgICAg ICAgICAgICAgICAgICAgICAgICAgICAgICAgICAgICAgICAgICAgICAgICAgICAgICAgICAgICAgICAg ICAgICAgICAgICAgICAgICAgICAgICAgICANCiAgICAgICAgICAgICAgICAgICAgICAgICAgICAgICAg ICAgICAgICAgICAgICAgICAgICAgICAgICAgICAgIC AgICAgICAgICAgICAgICAgICAgICAgICAgICAgICAgICAgICANCjw/yTZxE0xevZZalsK2G2cvSc2WKm 4DMD1nx3QmGJAsJWcznnRpYuiXIrXvWWTrXgaUZth8ZLzkPK3QzZDgM7AkN3QlBOykCI3CRTWbWLJgnT XgWAWtXUEhOuV3KDOzYYoaPY6CxNQjJGnvKKEaYMAl WdJuACWqHTUaWYMrAR5HOPZwQ451kfBuNj1TWs8HWzYvIP4cwa2ZTfDxUMFcBdcQDya4ELyrDK1VjSXq C6BefCUyw2qRSfWvH6NKLSW7VREtRg2RQVQbIwFeRUZsDZmpQA4eAFWiXDKIqRzeopB9KK6SAV4rnpIn DY9QVyQmGd0uJp4VWfZwE1FlU7KlUJFlMVPUFLisXL 7XEOIkXFR7FOQrTGVhKPYEVsZjB10mRT2UV1Brv92kIhK5EMUeHrQgVOsuJR84xOgtflSqcGBqdGalSP 0NCj4+ZWxqwwSsOeqVLwxhRXNEByTsUcKGUpYkMNEgMFAjVXDtDzS5ChUpOp0KGQNsUORgSWKkIqQwES DaXKUbAMwiRKNkEYU3BAz6HJIqIPTiPS3ABgWhBDVg JIn9VCKhKYJoEDXepb9EFBNqWIHxEVE2HJGoLYLdOSBhEPnqEIZoZMFoELuyHQDgAIIuVY2GZlUgQVXx CVOxUfIfRAXhSVLaoo9BMUIoQZKhGig3PWOhYDPlTKUrVYktQIOmHNA0FDi7UTTsWDVwRA0BKnRoYFRi HHm9EkRgJTPtVZYyay7JYJLiQFIhOTbuINHfMBRpRW DzZRqtKSAoKBRuMna3WIOnCSVbTO1YEbJpRDTvNDZ4WAPrNTNtHVCskp2OSEXyWHNeGAY4JFIsVVQoNS RyYRruPFHdSEImHRY5JDWwJKStAF2XLuMiDMCeVAIuQlkoAGDyEQRgoo9EINLtBHOwGeDoJhLrNRLyYK AvCHwvHMXjJJNhQzd9SVYmIDDtXO4UWtMaWBHkCTU6 MdErUWDmCDWesn6BKLShHXQxVfz1IUNsPBSwKAXxSWfqVLVmGTC9XzL9WYHeBNHgBP4TMvQgEPGuENC2 QeZqYXZlIZEvdy9KERZnKQGnYAGyQGDtDBLlJLPvRUsfJWPpDAL7OOD2EQLcEKGuAT3YWzVbUFNoWGS8 QpsrGDOxMTAdwm5ODNNvUXSxKiW3XKOlYBFcQMTyWK bqPTVvBHO5HkC5PVXjLCZjBH8YSnJuATEqKOH2STtoGTMzBYLauj7RTXFjECTwDjn5XnKhTUHnZUZbDZ rrGCTsGVE5Tml0KKTqAOKhIU7AErTpBZJpYUx2IqQeIMSoJMUzmu4SnOPwqVcbxv1HOViJYn9ScEudHL FxATzyYj0jbXTfFCEpIKWBCn7XxoMrLUNfHBAQTNka REJzVKIjI9WfTCR2AlAoQqCtQFP6YmP9GCJgZfweLKE9SYY2EyN0M2OfHJCyVRv1WVKnU7VtEQnwMckk JAC2GFK3Fll0AOv+FG3eTCi+Vq5Vq6GbauM9syAbXZbhOZDaQu0KQTFPN7JEPc== ID Date Data Source [id number] 11/09/2020 03:45:25 PM EDT [facility] Name Value Range Interpretation Code Description Data Debbie rce(s) Supporting Document(s) &PDF [facility] KAEIFp2mCdDCKpYq14/NQAhmJEYdt4ZtQTjbMXp4WThtLIAfH8KqjPpsFNRTDAGJFpiJXWjPBF8GOYRR 0b3 CzJKLoQwLTbGP7QN4wQNQudkOtpcK3vF3cHI1TAJY+Yr6QQB2yi6MvBFu2UUPtk0TzIJgySSk4J9LqnE ZwnlKkBcvemMQPHXZhMYPoS2zcwmh3aKJlFxW4Ms8PPyCtq1DbRZZlFVvTtkGkY45BUDU+X2n/g6XRjE Aiad/movDLMVHLMRyNxAgG5FH7E5KYzbl1F5dV/Pp1 6z9iAtIk1NNvYuITPrX004nfHasAuMdxv8ndIYduef8qjpFIMfEB+ve/CNwD5d6z8mghTDpDQe6Qs8W8 mma9Tsw/M8HPRTqn6HwUHCzHVrZ7J7PApmfWhqc1k0h3EQ9ego7a+rOHu0JPN52X8E+PPKwMhuTsS4J1 6ctVmnkRuAUIJN2M78/V2Kg5q8IcSVVsuLSSy/Ph4m CoL2u8OKmCRQTSGGMaT5S8Lu3ZfU/i4yDBJqjuJ60j9jDnCsnw+BxgKHpzGE8s/pcUQDG+RuAmUHZAsE 8tl1boG2zqPXtALUUKlBc3otwEJUWMFG4kFTs7umtXTWKuY/sDVOrCLJqn25YasQEZZmTQJ9ly8JNVPJ 8AIj34e9B9lKeiHtqJrcX3mE/DRmsyfURaCIaVhr8X b7nxzCQVUezyctgqV0+iVOwamb7acUsxfAfLwRc96mq1qqI0gH3Y54OHqtyQxI8aZhfFRWNWDm54UyEJ iGV34KF2UnVHPA9B/CzLzKHoJhR6mYgK1bHMHvwavb5xsoF0YiWA1T/qC7s6GbTzx2ND2fBrx3EQLGvN ooCE0i/2wyV88MSZcIxwS7CfggfXuGYBp3kTgsBOBf Hz3+/KuAABkPWXF0clfVeeTZDPUUCMCR12TQYJyARJUB+b3l1+1ScDhSIEsN7+uayr2NWHSLGKHESM0U [file] ICAgICAgICAgICAgICAgICAgICAgICAgICAgICAgICAgICAgICAgICAgICAgICAgICAgICAgICANCiAg ICAgICAgICAgICAgICAgICAgICAgICAgICAgICAgIC AgICAgICAgICAgICAgICAgICAgICAgICAgICAgICAgICAgICAgICAgICAgICAgICAgICAgICAgICAgIC AgICAgICANCiAgICAgICAgICAgICAgICAgICAgICAgICAgICAgICAgICAgICAgICAgICAgICAgICAgIC AgICAgICAgICAgICAgICAgICAgICAgICAgICAgICAg ICAgICAgICAgICAgICAgICANCiAgICAgICAgICAgICAgICAgICAgICAgICAgICAgICAgICAgICAgICAg ICAgICAgICAgICAgICAgICAgICAgICAgICAgICAgICAgICAgICAgICAgICAgICAgICAgICAgICAgICAN CiAgICAgICAgICAgICAgICAgICAgICAgICAgICAgIC AgICAgICAgICAgICAgICAgICAgICAgICAgICAgICAgICAgICAgICAgICAgICAgICAgICAgICAgICAgIC AgICAgICAgICANCiAgICAgICAgICAgICAgICAgICAgICAgICAgICAgICAgICAgICAgICAgICAgICAgIC AgICAgICAgICAgICAgICAgICAgICAgICAgICAgICAg ICAgICAgICAgICAgICAgICAgICANCiAgICAgICAgICAgICAgICAgICAgICAgICAgICAgICAgICAgICAg ICAgICAgICAgICAgICAgICAgICAgICAgICAgICAgICAgICAgICAgICAgICAgICAgICAgICAgICAgICAg ICANCiAgICAgICAgICAgICAgICAgICAgICAgICAgIC AgICAgICAgICAgICAgICAgICAgICAgICAgICAgICAgICAgICAgICAgICAgICAgICAgICAgICAgICAgIC AgICAgICAgICAgICANCiAgICAgICAgICAgICAgICAgICAgICAgICAgICAgICAgICAgICAgICAgICAgIC AgICAgICAgICAgICAgICAgICAgICAgICAgICAgICAg ICAgICAgICAgICAgICAgICAgICAgICANCiAgICAgICAgICAgICAgICAgICAgICAgICAgICAgICAgICAg ICAgICAgICAgICAgICAgICAgICAgICAgICAgICAgICAgICAgICAgICAgICAgICAgICAgICAgICAgICAg ICAgICANCjw/qHXsJ7tckZSpfeD4D3gjIx7PVi1NNR 8dk2IrMBVhCHbpcoJuSzmOReHeFJGbVukFEht8FZetCR1CnDGuS3FkJ0DzQIouDU5HIJCrCQVsbFVeFR NtPFXpMfJ5VCGfYVrwGT0YfTJdTWfmZHFeHRXfHmRqISKvNG2MBFOgG517pjGvCu0PCd2KJnZpOX0tip 4RXzNfCEWvOmsEAhk5HQgqPD0LdPWnL6SkoNQlf7hT TsWsB0QVAYHyLXKmKy6ETFPtCvYvKCRnNOiaSI9kSFFdXKPHlGrclvF7AR3PMP7drjBoBW7UMyBdIo8s Lw6LClNlV6IvQ9HjHDXtCCHJSVpyNO3DGHGdKBY5QHBgRlFlGPGYQnEwT41pHR6DR0Hyq44tKnU6JFQf VcVwRCyiZP79tUvzyrBvvJCanQwmFU5YBk4+DQplbm RySjzQCdddBJUWTcPaSdCLVoZaQWLkXELhMBDzObK2UsZfQe6AXQSbCHCpFFPwUbYtSHAcUPKzDZxkMP MuUEW9ADI8HPCaLWBfPX1ALnOfZNBsGXfcTXkoNYYaRWSdij4MBTNzUJFsPAV9ILJtLYPjVIOgPHxyNG CvLEQuDQLuSYDdTFMiAY3AReUnUWAbVSRfXTGwHHPp QUBgdm0NFQTnDMZdNIZ3GHHsZHFaBBLsFRjuFNSlMUS3HEooCOZhUISqTD7NCeWjXEYsXEQ6ARKrQCHd JBBvkc1TCBKgZHYqTTifZNUjGEFlYBNfLCaaXUOoMXJ9EMV6SSBiHAWwQN8SDhZgKESuXWL7EhpwAHHl KVBknn1GVNLwPCJzQoQ0FLZjDYLlMARaKJriHLRgWW Q4LuJ7YOAhLTIcFF1UXpJcAUHmAUOgXoUhZJPzEPBctg3LKSRiEXEkNoK0XOOcNLFmVIClZIecACIfAS BwRnJaXQVxZGUjMK3ZWyMpJFYrIPY0BLBaBVGwSHHtyq0WUJUdTLKjXsJ7POGiQAUfRCOyOIxhDYLjRA GlIMboJLJjNVYeNS5QDoCkRSXoLUAzOazoSKFqWEZz rg8HUAOpZBUxMXQ4COFpKYVfCZLzQBejPWBhEVO5PtpeKHBxCFSzNS1LZsDbFZCeJXV3UrzmVRFmRFJw gt6JKWDaGHBoZLS3JzOoFPVnIWIiDVtjGUAgPTR7BPN5CEQgEKTeND6YGdShAGZkTTEzLNNvVMNeOHVf go6BPPYfSCMyVgJdMEGgDJLpVWEaYGieDCTeZSC5Ro ufOWZyCQLuVE7HXtGbYCUsMHzhHCUlSNTbSGBnxf5NUJYvAVXkEtD6WtLqNXRjRRQlXUnePLYmCYS6TO U4OHEkSMZvSL3VLxYwXUJrMBzqAnQgZZRgZHPabs1JpUIgvMmmms9SHUjTIf7AiRvhZGV1RDzdMv4ljO HeEvSfYEBHBh7JitWrEUHsYXOKGUpjPWGoEOzkXfCe TbQnPVnuSQQhXfIwKDYnQiX4WRAqBCCxYXP7ItC5PoR8KxKrXiMdWXEuICLzCmLvXAC6Foe9XcKkOVEd MDg+XX9pJNk+Pw8Fa3VkxcE1nsKxDIvzYYC6GW0YZIABR6RUNc== ID Date Data Source [id number] 10/25/2020 09:18:00 AM EDT [facility] ([facility]) Name Value Range Interpretation Code Description Data Debbie rce(s) Supporting Document(s) Glucose [Mass/volume] in Serum or Plasma 100 mg/dL 74-99 [facility] ([facility]) 100-125 mg/dL PRE-DIABETES/FASTING >126 mg/dL DIABETES/FASTING Creatinine 1.2 mg/dL 0.6-1.3 [facility] ([facility]) Urea nitrogen [Mass/volume] in Serum or Plasma 17 mg/dL 7-18 [facility] ([facility]) Chloride [Moles/volume] in Serum or Plasma 106 meq/L 98-107 [facility] ([facility]) Sodium [Moles/volume] in Serum or Plasma 145 meq/L 136-145 [facility] ([facility]) Potassium [Moles/volume] in Serum or Plasma 4.0 meq/L 3.5-5.1 [facility] ([facility]) Calcium [Mass/volume] in Serum or Plasma 10.0 mg/dL 8.5-10.1 [facility] ([facility]) Carbon dioxide, total [Moles/volume] in Serum or Plasma 29 meq/L 21 -32 [facility] ([facility]) Alkaline phosphatase isoenzyme [Units/volume] in Serum or Pl asma 129 mg/dL 46-116 [facility] ([facility]) Alanine aminotransferase [Enzymatic activity/volume] in Seru m or Plasma 18 U/L 12-78 [facility] ([facility]) Total Bilirubin 0.9 mg/dL 0.2-1.0 [facility] ([facility]) Aspartate aminotransferase [Enzymatic activity/volume] in Serum or Plasma 17 U/L 15-37 [facility] Albumin [Mass/volume] in Serum or Plasma 3.8 g/dL 3.4-5.0 [facility] Proteinase 3 Ab [Units/volume] in Serum 7.8 g/dL 6.4-8.2 [facility] Glomerular filtration rate/1.73 sq M pre dicted among non-blacks [Volume Rate/Area] in Serum or Plasma by Creatinine-based formula (MDRD) 58 mL/min [facility] ([facility]) Glomerular filtration rate/1.73 sq M pre dicted among blacks [Volume Rate/Area] in Serum or Plasma by Creatinine-based formula (MDRD) Laboratory test result [facility] ([facility]) <content>CHRONIC KIDNEY DISEASE STAGING PER NKF</content>
<content></content>
<content>STAGE I & II GFR >= 60 NORMAL TO MILDLY DECREASED</content>
<content>STAGE III GFR 30-59 MODERATELY DECREASED</content>
<content>STAGE IV GFR 15-29 SEVERELY DECREASED</content>
<content>STAGE V GFR <15 VERY LITTLE GFR LEFT</content>
<content>ESRD GFR <15 ON LEAD SUPPLY WORKER</content>
<content></content> A/G Ratio 0.95 CALC 1.00-1.90 [facility] ([facility]) ID Date Data Source [id number] 10/25/2020 09:18:00 AM EDT [facility] Name Value Range Interpretation Code Description Data Debbie rce(s) Supporting Document(s) Erythrocytes [#/volume] in Blood by Automated count 4.77 x10*6/UL 4.2 0-6.30 [facility] ([facility] Leukocytes [#/volume] in Blood by Automated count 10.3 x10*3/UL 4.1-1 0.9 [facility] ([facility] MCV 84.4 fL 80.0-97.0 [facility] ([facility]) Hematocrit [Volume Fraction] of Blood by Automated count 40.3 % 3 7.0-51.0 [facility] ([facility]) Hemoglobin [Mass/volume] in Blood 13.6 g/dL 12.0-18.0 [facility] ([facility]) MCHC 33.7 g/dL 31.0-38.0 [facility] ([facility]) MCH 28.5 pg 26.0-32.0 [facility] ([facility] Erythrocyte distribution width [Ratio] by Automated count 14.2 % 11.6-13.7 [facility] ([facility]) Lymph % 14.5 % 10.0-58.5 [facility] ([facility]) MPV 9.0 FL 7.8-11.0 [facility] ([facility]) Platelets [#/volume] in Blood by Automated count 323 x10*3/UL 140-440 [facility] ([facility]) Mid % 4.4 % 1.7-9.3 [facility] ([facility]) Lymph # 1.5 x10*3/UL 0.6-4.1 [facility] ([facility]) Neut % 81.1 % 37.0-92.0 [facility] ([facility]) Mid # 0.4 x10*3/UL 0.1-0.6 [facility] ([facility]) Neut # 8.4 x10*3/UL 2.0-7.8 [facility] ([facility]) ID Date Data Source [id number] 10/18/2020 09:57:49 PM EDT [facility] Name Value Range Interpretation Code Description Data Debbie rce(s) Supporting Document(s) SODIUM 144 mmol/L (136-145) [facility] POTASSIUM 4.5 mmol/L (3.6-5.2) [facility] CHLORIDE 108 mmol/L (100-108) [facility] CO2 29 mmol/L (22-31) [facility] ANION GAP 7 mmol/L (7-16) [facility] UREA NITROGEN 19 mg/dL (7-24) [facility] CREATININE 1.03 mg/dL (0.80-1.30) [facility] BUN/CREAT RATIO 18.4 RATIO (10.0-20.0) [facility] GLUCOSE 99 mg/dL (70-99) [facility] CALCIUM 9.2 mg/dL (8.4-10.2) [facility] GFR >60 ml/min/1.73m2 (>59) [facility] GFR ( AMER) >60 ml/min/1.73m2 (>59) [facility] GFR INTERPRETATION [facility] --NORMAL KIDNEY FUNCTION OR MILD DISEASE - GFR >OR= 60CHRONIC KIDNEY DISEASE - GFR 15 - 59RENAL FAILURE - GFR <15 Est. GFR calculation based on the MDRDstudy equation, which assumes a steadystate for creatinine. Est. GFR should notbe used for medication dosing. ID Date Data Source [id number] 10/13/2020 07:22:12 PM EDT [facility] NT INFORMATIONPatient MRN Name Date of Age Gend*PT [id number] Kendra Muro 1935 84 years M IPPT Location Admission Date/Time Visit ID Attending [id number] 10/09/20908 --- --- EPI ID CSN Admitting Provider [id number] Renetta Guzman MD([id number]) Attestation signed by Renetta Guzman MD at 10/13/2020 7:22 PMSignature: SUZANNE Cobbate: October 13, 2020Time: 7:22 PM Physician Discharge Summary Kendra ConklnierMRN: [id number] date: 10/09/2020ttending Physician: Renetta Guzman MDAdmission Diagnosis: Nonrheumatic aortic valve stenosisSecondary Diagnoses: Principal Problem: Nonrheumatic aortic valve stenosisActive Problems: Ischemic cardiomyopathy COPD Coronary artery disease HypothyroidismPrinciple Procedures:Transfemoral TAVR with a #34 mm Medtronic Evolut Pro ValveInsertion of a Medtronic MRI conditional dual chamber ICDIndication for Admission:Mr Muro is an 84 year old white male with a history of CAD s/p recentstenting, COPD, ischemic cardiomyopathy, hypertension, hyperlipidemia,congestive heart failure, and GERD who was found to have worsening heart murmurin February 2020. Subsequently, he was referred to bluing oven tender for furtherevaluation. He had an echocardiogram in July with an EF of 30-35% and an aorticMG of [address] calcium score was obtained that revealed an aortic valvecalcium score of 2967, confirming severe aortic stenosis. He underwent testingfor TAVR and his case was discussed at the multi-disciplinary structural heartconference where the team agreed that TAVR was the best treatment for thepatient.Hospital Course & Complications:The patient underwent TAVR on 10/09/20. Following the procedure the patientdeveloped complete heart block. The TVP was kept intact and patient was relyingon the pacer. Given his severe COPD and CHF, the patient had a difficult timelying flat so the decision was made to keep the patient intubated while onbedrest, and he was transferred to the ICU.EP consulted on the patient that afternoon. The patient had regained his rhythmand the TVP was set to backup rate. Given the patient's cardiomyopathy, and hishigh risk for recurrent heart block, the decision was made for bi-V ICD.The patient had a Medtronic MRI conditional dual chamber ICD inserted on10/10/20. He was extubated following the procedure and kept on nasal cannula. Hehad an echocardiogram that revealed an EF of 35-40% and aortic MG of 5 mmHg withno AI. Coumadin was restarted on the patient for his history of remote vascularinjury.On 10/11 the patient feels well. He was ambulating in the hallway off oxygen withno dyspnea. He was transferred out of the ICU. [place] and continued on plavix post TAVR and recent stenting in July.His norvasc, torsemide and cozaar were discontinued as his blood pressure hasremained 120-130s systolically. His atenolol was reduced and he was started onlasix. He will be following up in Dr. Mcgraw's office on 10/27 for a site checkand then with Dr. Mcgraw on 11/09 for office visit and echocardiogram.Past Medical History:Past Medical History:Diagnosis Date Advanced Airway Equipment Used Aortic stenosis Asthma Garza's esophagus Cataract cortical, senile CHF (congestive heart failure) COPD (chronic obstructive pulmonary disease) Coronary artery disease GERD (gastroesophageal reflux disease) Hard to intubate [place] (hard of hearing) Hyperlipidemia Hypertension Hypothyroidism Ischemic cardiomyopathy Murmur, cardiac Nonrheumatic aortic (valve) stenosis PVD (peripheral vascular disease)Most Recent Labs:BMP:Lab ResultsComponent Value Date NA 145 10/11/2020 K 3.5 (L) 10/11/2020 CL 108 10/11/2020 CO2 29 10/11/2020 ANIONGAP 8 10/11/2020 CALCIUM 9.0 10/11/2020 GLU 88 10/11/2020 BUN 25 (H) 10/11/2020 CREATININE 0.98 10/11/2020 GFRAA >60 10/11/2020 GFRNONAA >60 10/11/2020BC without Diff:Lab ResultsComponent Value Date WBC 11.2 (H) 10/11/2020 RBC 4.02 (L) 10/11/2020 HGB 11.4 (L) 10/11/2020 HCT 35.2 (L) 10/11/2020 MCV 87.5 10/11/2020 MCH 28.3 10/11/2020 MCHC 32.3 10/11/2020 RDW 15.5 (H) 10/11/2020 PLT 157 10/11/2020 MPV 9.1 10/11/2020Medications:Your medication listSTART taking these medications Instructions Last Dose Given Morning Afternoon Evening Bedtime As Neededfurosemide 40 MG tabletCommonly known as: LASIX Take 1 tablet (40 mg total) by mouth dailyCHANGE how you take these medications Instructions Last Dose Given Morning Afternoon Evening Bedtime As Neededatenolol 25 MG tabletCommonly known as: TENORMINWhat changed: medication strength Take 1 tablet (25 mg total) by mouth dailyclopidogrel 75 MG tabletCommonly known as: PLAVIXWhat changed: additional instructions Take 1 tablet (75 mg total) by mouth daily Please take 4 pills the night beforethe procedureCONTINUE taking these medications Instructions Last Dose Given Morning Afternoon Evening Bedtime As Neededacetaminophen 500 MG tabletCommonly known as: TYLENOL Take 500 mg by mouth every 6 (six) hours as needed for painAdvair Diskus 250-50 MCG/DOSE DISKUSGeneric drug: fluticasone-salmeterol Inhale 1 puff 2 (two) times a dayalbuterol 108 (90 Base) MCG/ACT inhalerCommonly known as: PROVENTIL HFA;VENTOLIN HFA Inhale 2 puffs every 4 (four) hours as needed for wheezingamoxicillin 500 MG capsuleCommonly known as: AMOXIL Take 2,000 mg by mouth once Before dental proceduresatorvastatin 40 MG tabletCommonly known as: LIPITOR Take 40 mg by mouth dailybrimonidine 0.2 % ophthalmic solutionCommonly known as: ALPHAGAN Administer 1 drop to both eyes 2 (two) times a daylatanoprost 0.005 % ophthalmic solutionCommonly known as: XALATAN Administer 1 drop to both eyes nightlylevothyroxine 75 MCG tabletCommonly known as: SYNTHROID, LEVOTHROID Take 75 mcg by mouth dailynitroglycerin 0.4 MG SL tabletCommonly known as: NITROSTAT Place 0.4 mg under the tongue every 5 (five) minutes as needed for chest painPt reports taking 1 pill SL today bc he was anxious. Could not report if thepill had any effectOmeprazole 20 MG Tbdd Take 20 mg by mouth dailypolyethylene glycol 17 GM/SCOOP powderCommonly known as: GLYCOLAX Take 17 g by mouth daily as needed for constipation 1 capful= 17 gwarfarin 5 MG tabletCommonly known as: COUMADIN Take 5 mg by mouth dailySTOP taking these medicationsamLODIPine 5 MG tabletCommonly known as: NORVASClosartan 100 MG tabletCommonly known as: COZAARPotassium Chloride ER 20 MEQ Tbcrtorsemide 100 MG tabletCommonly known as: DEMADEXWhere to Get Your MedicationsThese medications were sent to [facility] [address] [place] [address] atenolol 25 MG tablet furosemide 40 MG tabletDischarge Exam:Vitals: Temp: [97.7 F-98.4 F] 98.4 FHeart Rate: [68-119] 87Resp: [11-59] 34BP: (95-142)/(50-72) 138/66Arterial Line BP: (82-306)/(43-306) 305/926RyV5 (%): [40 %-41 %] 41 %General appearance: alert, appears stated age and cooperativeLungs: Coarse breath sounds in upper lobes. No cough on exam.Heart: S1, S2 normal, no murmur, click, rub or gallopAbdomen: Soft, nontender, bowel sounds present.Extremities: No edema in lower extremitiesWound/Incision: Left chest wall site clean, dry and intact. Bilateral groinsites clean, dry and intact. Soft and without hematomas bilaterally.Discharged Condition:goodDisposition: Home or Self CareFollow Up: Site check 10/27, office visit and echocardiogram Dr. Mcgraw on 11/09Signature: Belinda Guillory, NPDate: October 11, 2020Time: 1:30 PM Name Value Range Interpretation Code Description Data Debbie rce(s) Supporting Document(s) ID Date Data Source [id number] 10/11/2020 05:25:22 AM EDT [facility] Name Value Range Interpretation Code Description Data Debbie rce(s) Supporting Document(s) SODIUM 145 mmol/L (136-145) [facility] POTASSIUM 3.5 mmol/L (3.6-5.2) L [facility] CHLORIDE 108 mmol/L (100-108) [facility] CO2 29 mmol/L (22-31) [facility] ANION GAP 8 mmol/L (7-16) [facility] UREA NITROGEN 25 mg/dL (7-24) H [facility] CREATININE 0.98 mg/dL (0.80-1.30) [facility] BUN/CREAT RATIO 25.5 RATIO (10.0-20.0) H [facility] GLUCOSE 88 mg/dL (70-99) [facility] CALCIUM 9.0 mg/dL (8.4-10.2) [facility] GFR >60 ml/min/1.73m2 (>59) [facility] GFR ( AMER) >60 ml/min/1.73m2 (>59) [facility] GFR INTERPRETATION [facility] --NORMAL KIDNEY FUNCTION OR MILD DISEASE - GFR >OR= 60CHRONIC KIDNEY DISEASE - GFR 15 - 59RENAL FAILURE - GFR <15 Est. GFR calculation based on the MDRDstudy equation, which assumes a steadystate for creatinine. Est. GFR should notbe used for medication dosing. ID Date Data Source [id number] 10/11/2020 04:43:48 AM EDT [facility] Name Value Range Interpretation Code Description Data Debbie rce(s) Supporting Document(s) PT 13.7 s (9.2-11.9) H [facility] PERFORMED AT [address] [place] [address] [place] [address]144 INR 1.33 [facility] SUGGESTED THERAPEUTIC RANGES USING INR F ORSTABILIZED ANTICOAGULATED PATIENTS:STANDARD DOSE THERAPY INR 2.0-3.0 DVT, PE, PREVENT DVT OR EMBOLISMHIGH DOSE THERAPY INR 2.5-3.5 PREVENT EMBOLISM FROM MECHANICAL HEART VALVE ID Date Data Source [id number] 10/11/2020 04:33:16 AM EDT [facility] Name Value Range Interpretation Code Description Data Debbie rce(s) Supporting Document(s) WBC 11.2 10*3/uL (4.1-11.0) H [facility] RBC 4.02 10*6/uL (4.60-6.10) L [facility] HGB 11.4 g/dL (13.5-18.0) L [facility] HCT 35.2 % (41.0-53.0) L [facility] MCV 87.5 fL (80.0-95.0) [facility] MCH 28.3 pg (27.0-32.0) [facility] MCHC 32.3 g/dL (32.0-36.0) [facility] RDW 15.5 % (10.5-14.5) H [facility] PLT 157 10*3/uL (150-450) [facility] MPV 9.1 fL (7.1-10.7) [facility] ID Date Data Source [id number] 10/10/2020 02:48:16 PM EDT [address] [address] Name: KENDRA CONKLINBRANDANDOB: 1935Sex: MOrdering Provider: ANDRESSA Clemons Prov: ANDRESSA Sarabia Provider: Procedure Performed: XR CHEST PORTABLEExam Date: 10/10/2020 14:38MRN: [id number] Number: [id number] Class: InpatientAccount #: [id number] for Exam: icdTechnique: AP portable view o btained.Comparison: 10/09/2020Findings: Status post dual-chamber cardiac pacemaker/intracardiac defibrillator. The leads appear in satisfactory position. There is no evidence of pneumothorax.Endotracheal tube and nasogastric tubes are in satisfactory position. There is some mild interstitial density within the lung hollis. Similar findings were present dating back to June 2020 I suspect at least some of this represents chronic disease. Cannot exclude a mild degree of superimposed edema.IMPRESSION: Satisfactory placement of dual-chamber intracardiac defibrillator. No evidence of pneumothorax.Report electronically signed by: ADRIÁN QUINTERO On 10/10/2020 2:48 PMWorkstation ID: [id number] Name Value Range Interpretation Code Description Data Debbie rce(s) Supporting Document(s) ID Date Data Source [id number] 10/10/2020 02:18:12 PM EDT [facility] Name Value Range Interpretation Code Description Data Debbie rce(s) Supporting Document(s) POC TEMPERATURE [facility] 37.0C POC SOURCE [facility] PUNCTURE SITE [facility] O2 THERAPY [facility] POC FIO2 40 [facility] JAIDA TEST [facility] MODE [facility] PEEP/MAP 6 CM H2O [facility] PRESSURE SUPPORT 10 CM H2O [facility] SP RATE 14 BMP [facility] POC PH 7.46 pH (7.35-7.45) H [facility] POC PCO2 43.2 MMHG (32.0-48.0) [facility] POC PO2 146 MMHG (83-108) H [facility] POC SAT O2 99 % (95-99) [facility] POC BASE EXCESS 6 MMOL/L (0-3) H [facility] POC HCO3 30.6 MMOL/L (21.0-29.0) H [facility] POC TOTAL CO2 32 MMOL/L (23.0-32.0) [facility] PER[facility] BY [facility] ID Date Data Source [id number] 10/10/2020 01:18:46 PM EDT [facility] Name Value Range Interpretation Code Description Data Debbie rce(s) Supporting Document(s) &PDF [facility] QVIHEs4fBcQRJmOh10/IBYhaJFRfh1HcYEdgXFr9WLipQQMkT5OyzHuaOTVDNGCQLrrNESvPJY5HCXWZ 0b3 [file] ICAgICAgICAgICAgICAgICAgICAgICAgICAgICAgICAgICAgICAgICAgICAgICAgICAgICAgICAgICAg ICAgICAgICAgICAgICAgICAgICAgICAgICAgICAgIC BqIKJaUVLkSR7TSAZaXWIhEDIlABAyOABtWEYvBOWiDDFlCIIzNDCqPJKlWKNrEPXvTVIwKIXbODHmGL KgRQQyEUNmPTTlKZGrLCNrJDRfLTNjOPEuQJNaBNIzHZMcKOLaSGYbDKEaCEBuINFeVE0DEBZqNCQsLX AgICAgICAgICAgICAgICAgICAgICAgICAgICAgICAg ICAgICAgICAgICAgICAgICAgICAgICAgICAgICAgICAgICAgICAgICAgICAgICAgICAgICAgICAgICAg VJ3WFWJhUELmZMIjFNPeIFPzIRLkBTYxNSYkIYGpMKDhIFQjRTFmBRTnEHWmFNBpLJDaAKCkSBCfZWNu ICAgICAgICAgICAgICAgICAgICAgICAgICAgICAgIC WwUTGwSSMgUMRkON4RHYXeJIIwYTXsHWFyKINiCOYwAUSfLPDrLWSnEMIbENQtFNEhOKTsLPMaIGOhZX PrCCQtVBZqZSWgHAZaYREyKQSnGWNgLONfZATcORNgOBAsIDFuCGXuEDBvFNMmAYCyYVPtLW2FUSOhFA AgICAgICAgICAgICAgICAgICAgICAgICAgICAgICAg ICAgICAgICAgICAgICAgICAgICAgICAgICAgICAgICAgICAgICAgICAgICAgICAgICAgICAgICAgICAg ZSUbSS3MNGJdJSHxVIWxULAnVSOdIMWbUUHcQDHqGVNcEYWuCKMrKGNrOZHtICOyYAPpSFKhJBLcURPm ICAgICAgICAgICAgICAgICAgICAgICAgICAgICAgIC MkKKUcKITmXLIoDJRzGG8XFKXzSGMzXYSgBEFyOECqBSGqTHIoSLUkFXOpLMTkANMmLTKjWWVjCSCjUS GxXXHaSFImSAAxAZSiRFDmNERiCFLzONCbMBAwPNFrYDEdBCVyHLDfFQMoOUGuBANcVYGxKXStNX4XWX AgICAgICAgICAgICAgICAgICAgICAgICAgICAgICAg ICAgICAgICAgICAgICAgICAgICAgICAgICAgICAgICAgICAgICAgICAgICAgICAgICAgICAgICAgICAg KWEcCYOdDP8VPOPnCEAjMOXyQJGyYLTcVZUiRYEnLWWnZMNlUIBqIJZuBFKbQDSpLSBaARBgNYNtYDMk ICAgICAgICAgICAgICAgICAgICAgICAgICAgICAgIC LmSMUyVTKuTXHdNIFsSOGwHM0GSV59rBWfh7M2MBShPJ9cmdb/Qd3THExpuuVqsQAwAM3MGsFeGT0wtz 4HVpXwUS3pxj5RICsTUeHzY2G2kZFcCPLkGCYMNkXfJ72oNNtiIc54OYytEDXySpShLSa7Wo8XKnPvH8 tmUYVeGvK5RNBiVvC1FEGiTrR8VDGbXhHoTNWaOWGe WS4GDWKeB337ohVgVA1ALl9CUcLwDT2oxm8FCrRxOEHlDcwRYfx2REubOI7FrCOjnAQbBwXhZNUTMjVa F7fnk5PuPiXyPSXVRBonNS6Ue8IufEZpBDu+Gy1IJS8op0UxMJoeKhRyYG0obl8CIEvIIoBtV4AwwXfr JXyxhNyemaWeIA6WPGRbNTYwiBIgIYwbFYXVZJ6IZV qmLEA1MAWiniEjwXXjJNwjHB7BRVEkftIiPiPhDBUJLQh+Fi0QDQ1vc5YoRLikHIBnJH1nvf8OOCeHNr DjS0W0uRLxY9N7HAmeDh5CLMQdJFDbQzDqWLLNVYroNW6AUC6oddC7KV9EiNYjOWOuSGCiuDLtYXz2M1 6vqGMzNUemSR0BYHQ+Magdy+Ss7XZRCdVGUwKIRjFjEo JFCKEqThP9IpU8GBm9EuH7BgQA02uTuypnOyVExeKR2EVA7aMLOnCJGHOZ3PyYGghA6nngFfStOxHLGB ZzBaA46clBKdUDTlSHXpHNIwWv4NFDDeZ7YtmiGsuXsltuVrSWTgGRDAVT1VLMclieTkbZLkaSzeBR12 wOtrLQ3NSw8BRsHiWY3sto6CrMEzOg5IFMUmKX5XVP RuSYRdVLJmMZB9PVFrOuQcXBrpULThHKOxNTT3AAIeUPLcNJ9HLgHmFDTiThOnZATnOXEyQZTbzf0VVN CtHIJnIij0NgUtHMKtDQIdKEnoUTAjGJDbMQd5FWJtVJQhCM6MKgTzWLVqFPO7GyyrKLKpVGVnhy2NCT ZhNLVgXpmkRvPvYUPgPVQgICgdLZUdRND6ZGN6IWTi CQTvUG6OLrYxCUBiXXBwOXJgLZEiBJIxie8IIVPpGBPuTPhyYkKsFBXrDZByUSqqDFUmXFV4SIFaSVGd YPDoRI2NRdFsQFCcBWz4KZboROOePTByfh2DVDWpUWJeWRa6NpMaLPPyJCRnWKtjPJQhJQXxOGWkVJQy KOLuJX7BGoHgZVPdWCKhEaKfUBYnMWPzqs7YVNPkJQ OoDECpHbSgXFRxNVEdUYvnWGAdJSSzLiKhOQLnCNUnUD0NSfCvBOMhBUI9AjJbCLNdLCVheo4XTJXnVJ GiXsK0RtSlTSClFEUpTVjoETRcYNF7RnA5PYGwHTKxXM8NEcVyGJRrRxNxRODbDVPnIRKsnj8FMSNpUG YuOyUwDwUtTBWqXBQkXEtqWCJqTFBzWGK2WXHbIGZn UZ8JGoErWSVvBmXtQcNkIGPdWUZtbf0FVYVwHZLtZLWmXSLhBTLpQFQiGEv7ppWfbBCxLKg0LE4BL5Am goLeEpTCRm4Ap707WHL7UNHpNj6OH6bkCm0zZXSvQILKPq6FTJi8TygjHZMaEBVsZkKnGhgdLJM1LJV1 HMFnBkFtDFy2WZg+SCfgVdV1KBWpIEG6PqWcIMSiNY RtKmz0UWR2KXI8AEN6Fk2jDZOHTd1+KPdfuVMqiMgbAKOUEfI3Vhm9CFmcOQVNBr2X ID Date Data Source [id number] 10/10/2020 10:40:13 AM EDT [facility] Name Value Range Interpretation Code Description Data Debbie rce(s) Supporting Document(s) &PDF [facility] DGORXg4pOnVDSlGx11/ULXzuBSEko6JvKGjgEKs4XCwgCABnT1UbbQrtYDIMWHFDBsxHJVpGTB9OZZWU 0b3 RvORNnLpKNmTD2UG8uFCLuxlItciB3gL1wHI8PZQC+Vo3ZNK5fr0OqLHw9MIEqf7RqGMhzVTn7D1YhiJ RlewMxGxtitMPWSMHcSMVdK8lhpgn0bDGzDOp6Sd1VDsSba7DeMZKdQJmRjj8jHGIREkP4se5/qOrq6t gqHEsazRdFUeUksAlHCMQ+asmyUdQx9zTcWkkZmh85 21sb886S+pGvYaSeDK7zo8T+7do6WT3iRf/4nz2GLxxv7n8KJ+NUsv6U/uVpsH9daPua708n8DmfqB2T uBQZ3sEtgTGCL1Nn75Tbi5B1EwVQRBZeEqM/ArHnIfe16l5QiPWm4p03ygBy3kYmIBivrtBTO4o/sN4n IsXDQOF1IdtAmnxYoZWGRXKb86VJC/KLeaS5MsK7Ye MHAXynDNdo7E5OLYLGT4FLhqHNZILJPHYddUxNvOCPme00lxk+S430F2aApEVVrn4SBmcAc9k/nnVeHb 10HOpmP4hvvf0TvZOZRdJtNOgYGc3awC5IDPnjpwDNNwtFdlWA4yFPaZg6lNRUSRaP6jkkjeFC9YAVBZ 9fEKQjBAr/To72B72QgbQGg5DpsFPkZ6MQFzRXbER6 yOIP3ZANDenfbFtTNYBB7uXGG9SDA6J9O4UuSSGTQyg+sQc7uxdnHDkYyb9BGqk0wqfcboG7ByXTnVDZ OIMz/4HMxa8RXcBmKdIL5to9gIRWXB5YiIxXsXz1I4Yj+nSzxDk2jHhP2zebKrF0dJov/Cbq3AxsolqF Kq8LVkY0npZaYdQPDEgwGLmJJLeIrCzCvlhr8jKdTV 3gCRuPe4DlOdWR10KXRGIdiREQuhyv6gwSlJE7qVdSLd2vuskIxvsDDarJX6Y1c6bO+ZfXmBaJ89Z9jG /Bh1lhrYrQurEBhXbOdGmEPGT6lChtX/Wnio04RoVrrFPY3P8kVgZQH/Vietnamese+7oYzvpDdsLePxBchrqyF+ [file] AgICAgICAgICAgICAgICAgICAgICAgICAgICAgICAgICAgICAgICAgICAgICAgICAgICAgICAgICAgIC AgICAgICAgICAgDQogICAgICAgICAgICAgICAgICAg ICAgICAgICAgICAgICAgICAgICAgICAgICAgICAgICAgICAgICAgICAgICAgICAgICAgICAgICAgICAg ICAgICAgICAgICAgICAgICAgICAgDQogICAgICAgICAgICAgICAgICAgICAgICAgICAgICAgICAgICAg ICAgICAgICAgICAgICAgICAgICAgICAgICAgICAgIC AgICAgICAgICAgICAgICAgICAgICAgICAgICAgICAgDQogICAgICAgICAgICAgICAgICAgICAgICAgIC AgICAgICAgICAgICAgICAgICAgICAgICAgICAgICAgICAgICAgICAgICAgICAgICAgICAgICAgICAgIC AgICAgICAgICAgICAgDQogICAgICAgICAgICAgICAg ICAgICAgICAgICAgICAgICAgICAgICAgICAgICAgICAgICAgICAgICAgICAgICAgICAgICAgICAgICAg ICAgICAgICAgICAgICAgICAgICAgICAgDQogICAgICAgICAgICAgICAgICAgICAgICAgICAgICAgICAg ICAgICAgICAgICAgICAgICAgICAgICAgICAgICAgIC AgICAgICAgICAgICAgICAgICAgICAgICAgICAgICAgICAgDQogICAgICAgICAgICAgICAgICAgICAgIC AgICAgICAgICAgICAgICAgICAgICAgICAgICAgICAgICAgICAgICAgICAgICAgICAgICAgICAgICAgIC AgICAgICAgICAgICAgICAgDQogICAgICAgICAgICAg ICAgICAgICAgICAgICAgICAgICAgICAgICAgICAgICAgICAgICAgICAgICAgICAgICAgICAgICAgICAg ICAgICAgICAgICAgICAgICAgICAgICAgICAgDQogICAgICAgICAgICAgICAgICAgICAgICAgICAgICAg ICAgICAgICAgICAgICAgICAgICAgICAgICAgICAgIC AgICAgICAgICAgICAgICAgICAgICAgICAgICAgICAgICAgICAgDQogICAgICAgICAgICAgICAgICAgIC AgICAgICAgICAgICAgICAgICAgICAgICAgICAgICAgICAgICAgICAgICAgICAgICAgICAgICAgICAgIC TtFQDlWNViJFDrMPObVLZjOPKtWFg0X8ouHXFbQUXr XS3fLVi0Uc7+UJoTVkQnUZJ2siPzwV1XDP3ny3GrWSoxXTHbl6AvYAa3LL3XPCIqLSinUD1HVMqwew6Q QIVbPUKsqYDZz1ycRmXiZCO2AXDiNmudEY6JFIUgO5kyhgEhZXVsGDFWPEemSGMEUCrxAGKUDW2NWdYc L6JskF13FHOUNw4+PCdxivNvZypFEuD8FMWjd4ZzIB f5MA9IRZCaKUomBY3OXKXjiB7aKQhhSV4YUcWxQmAwAATJEoQcU66dlUGwATh7W7HaAqOoDFIiEjnjOJ MgPDwvTmFtZXMgWyBdDQogID4+ID4+PXglIL8VOQujobZqGEXhUm4DJYRnNCT2WIPyiCSnCnsuLKJRJX wePF5OgVNpAGE1hE5qPEqhGGJeABOaC3iDLaMtlKda FI46sRyamtHxiYIkYNm+Zt9GWO9io9PtSAd7kkWwGHsnZCV7NHbfDEPlIBNjYATkPAK0WRN7GLGGGcWw BYMnYFXwPZhpAPByRXDqsi0KKLGkGAEbRmb3XHKmUKPyVSZjYVxqXLFkOGW6WLU0UFZjYAFvGF0VAvZp RQQsUQHrTQJpHMGlCLZdtu0VHXEzEGPbJsW3HKAgRY IxJVJlNPsyUXDiTPHtXqIgHFDaLMStLR8PLlUeZQZzTMC8FKUpHGPxNUAaks7SEWIgLSVhXzdcPmAuUW XaMAFiJMukBQAkFGW1VeWqGRBnIBJtJV2LXrKiEGTdUDk1CwKfTEJiGKGfxt9VUFHqTGJkEIO4SSMxJV JwIQUmKRofQJRfRNE4GekhWEZtMVTjIY2LGmApMNIw UUi6JiMtRTUrYSJuiq3WRCYjHWGjFAiwNjEfTGIfEOCbFYeeZZXlGGYiWUW6PAZhAHLgVC2YKgCnHIZa TIQjRiQhFYRbAPThfq9IIIDpTPGqXGD4PEBiJKPpPHWkQWdzSKXfMLB6Vip6RRPgAFDwDB5JItFwTTPw HYY8YFvmQGDyHIQlpi4NVTMkLAMbQPo8JYWvURTlIW AlMQwbXBFrJPV6WXh1POVjTRTeKW1XTuOzBBZkCHC4GuubXSGcZXZixm0VFVMqRAUuNvNwKeCeLOPqCM EiPMwoZQWfKPZ0Eox1YWXcBXRkES4AQpAdTHBrUxLaKPWpBVWnGOBeou6PXFUdEAGtWrqeJdPbDIGeIK ZuWYplOCBpIER7HOh0NNWiJTFrQT3EGjMfBLBgBfa3 CoKcIOJqUKDnhz8ZiWGlxJzsii9WBHaJKp2UkLxxXHD6NIfcSc5ifOQwGTLvXUYFQm7FwzShGYOkIWVY HKpyNAAdWXO4H7YqFvW3IYT3FFRnNPPcIOLfBQNdUVIkJeNqXcp1NvE3KkwuAZQcUpQoRMHjQ3A6ABX2 RcKrPYJ1NCVqHvU4GBZ+VZ8zAUg+Wy7Yj6PhwjT0soLpJMerQAljIM7VUKFNM8JSSm== ID Date Data Source [id number] 10/10/2020 10:34:00 AM EDT [facility] Name Value Range Interpretation Code Description Data Debbie rce(s) Supporting Document(s) SARS coronavirus 2 RNA [Presence] in Res piratory specimen by MAGDY with probe detection NOT DETECTED [facility] This lab was reported by [facility]. ID Date Data Source [id number] 10/10/2020 11:31:15 AM EDT [facility] Name Value Range Interpretation Code Description Data Debbie rce(s) Supporting Document(s) SPECIMEN DESCRIPTION [facility] INFLUENZA A (NEG) [facility] INFLUENZA B (NEG) [facility] RSV (NEG) [facility] COMMENT [facility] THE [place] FDA HAS MADE THIS TEST AVAILABL EUNDER AN EMERGENCY USE AUTHORIZATION(EUA) FOR THE DETECTION AND/OR DIAGNOSISOF THE VIRUS THAT CAUSES COVID-19.PERFORMED AT [address] [place] [id number] COVID19 RESULT (NDET) [facility] THIS ASSAY AMPLIFIES AND DETECTSTHE TARG ET RNA USING REAL-TIME PCR.TESTING PERFORMED ON [employer] GENEXPERTNEGATIVE 2019_NCOV RT-PCR RESULTS DONOT PRECLUDE 2019_NCOV INFECTION ANDSHOULD NOT BE USED THE SOLE BASISFOR PATIENT MANAGEMENT DECISIONS. FIRST TEST [facility] EMPLOYED IN HLTHCARE [facility] of [facility] SYMPTOMATIC [facility] DATE OF SYMPT ONSET [facility] ICU [facility] CONGREGATE CARE SET [facility] ID Date Data Source [id number] 10/10/2020 03:20:06 AM EDT [facility] Name Value Range Interpretation Code Description Data Debbie rce(s) Supporting Document(s) MAGNESIUM 1.8 mg/dL (1.7-2.4) [facility] ID Date Data Source [id number] 10/10/2020 03:20:06 AM EDT [facility] Name Value Range Interpretation Code Description Data Debbie rce(s) Supporting Document(s) SODIUM 145 mmol/L (136-145) [facility] POTASSIUM 4.1 mmol/L (3.6-5.2) [facility] CHLORIDE 111 mmol/L (100-108) H [facility] CO2 25 mmol/L (22-31) [facility] ANION GAP 9 mmol/L (7-16) [facility] UREA NITROGEN 23 mg/dL (7-24) [facility] CREATININE 1.35 mg/dL (0.80-1.30) H [facility] BUN/CREAT RATIO 17.0 RATIO (10.0-20.0) [facility] GLUCOSE 109 mg/dL (70-99) H [facility] CALCIUM 9.1 mg/dL (8.4-10.2) [facility] GFR 50 ml/min/1.73m2 (>59) L [facility] GFR ( AMER) >60 ml/min/1.73m2 (>59) [facility] GFR INTERPRETATION [facility] --NORMAL KIDNEY FUNCTION OR MILD DISEASE - GFR >OR= 60CHRONIC KIDNEY DISEASE - GFR 15 - 59RENAL FAILURE - GFR <15 Est. GFR calculation based on the MDRDstudy equation, which assumes a steadystate for creatinine. Est. GFR should notbe used for medication dosing. ID Date Data Source [id number] 10/10/2020 02:48:09 AM EDT [facility] Name Value Range Interpretation Code Description Data Debbie rce(s) Supporting Document(s) PT 13.3 s (9.2-11.9) H [facility] PERFORMED AT [address] [place] [address] [place] JO N Y 59597 INR 1.28 [facility] SUGGESTED THERAPEUTIC RANGES USING INR F ORSTABILIZED ANTICOAGULATED PATIENTS:STANDARD DOSE THERAPY INR 2.0-3.0 DVT, PE, PREVENT DVT OR EMBOLISMHIGH DOSE THERAPY INR 2.5-3.5 PREVENT EMBOLISM FROM MECHANICAL HEART VALVE ID Date Data Source [id number] 10/10/2020 02:23:53 AM EDT [facility] Name Value Range Interpretation Code Description Data Debbie rce(s) Supporting Document(s) WBC 17.0 10*3/uL (4.1-11.0) H [facility] RBC 4.11 10*6/uL (4.60-6.10) L [facility] HGB 11.8 g/dL (13.5-18.0) L [facility] HCT 35.9 % (41.0-53.0) L [facility] MCV 87.5 fL (80.0-95.0) [facility] MCH 28.7 pg (27.0-32.0) [facility] MCHC 32.9 g/dL (32.0-36.0) [facility] RDW 15.1 % (10.5-14.5) H [facility] PLT 251 10*3/uL (150-450) [facility] MPV 8.8 fL (7.1-10.7) [facility] ID Date Data Source [id number] 10/09/2020 05:12:45 PM EDT [facility] Name Value Range Interpretation Code Description Data Debbie rce(s) Supporting Document(s) POC SOURCE [facility] PUNCTURE SITE [facility] O2 THERAPY [facility] POC FIO2 50 [facility] JAIDA TEST [facility] MODE [facility] TIDAL VOLUME 500 mL [facility] [place] RATE 20 BPM [facility] PEEP/MAP 10 CM H2O [facility] PRESSURE SUPPORT 14 CM H2O [facility] SP RATE 0 BMP [facility] POC PH 7.41 pH (7.35-7.45) [facility] POC PCO2 38.8 MMHG (32.0-48.0) [facility] POC PO2 141 MMHG (83-108) H [facility] POC SAT O2 99 % (95-99) [facility] POC BASE EXCESS 0 MMOL/L (0-3) [facility] POC HCO3 24.7 MMOL/L (21.0-29.0) [facility] POC TOTAL CO2 26 MMOL/L (23.0-32.0) [facility] PERFOR[facility] BY [facility] ID Date Data Source [id number] 10/09/2020 03:19:30 PM EDT [facility] Name Value Range Interpretation Code Description Data Debbie rce(s) Supporting Document(s) &PDF [facility] CGGMOm7jHnJJQdWx47/GJNllBLBsi6ZqCXvaOHz4UOmkVCMxW5EyvRacLYRCNMFKIpgGWHuWEN0EULLL 0b3 [file] AgICAgICAgICAgICAgICAgICAgICAgICAgICAgICAgICAgICAgICAgICAgICAgICAgICAgICAgICAgIC EfNUFiZPGsGOMyELFrZFCjCTOpBH5GKEGrZAXpBTUl ICAgICAgICAgICAgICAgICAgICAgICAgICAgICAgICAgICAgICAgICAgICAgICAgICAgICAgICAgICAg IOPbLRZxCCQfIUKpDHYrRPAxCDNqQLKtJOBuYLWoHB3AWHWeAPYmTSWnESCmSXKdGZOrPOIuNCTdWBWh ICAgICAgICAgICAgICAgICAgICAgICAgICAgICAgIC VuJVWtVLEvCJRgJRWtDCWqFDVlPWNuMIJuJOHbIBNiLKPaIDMrDCWpGQ1SSSIwVJSdITOsAXUuXNAqDU AgICAgICAgICAgICAgICAgICAgICAgICAgICAgICAgICAgICAgICAgICAgICAgICAgICAgICAgICAgIC TpKPEgEGTvLXBqBUCjTFCmMXWtIOBxDR1NUOSuHBJv ICAgICAgICAgICAgICAgICAgICAgICAgICAgICAgICAgICAgICAgICAgICAgICAgICAgICAgICAgICAg CIOpVBRuYHFlOYKsAEMdDHIuBNLyJOHuCEWbYPYbYREvBS0UXHArHKUfCJKlLPWfGNMpXASoCEHlHLFi ICAgICAgICAgICAgICAgICAgICAgICAgICAgICAgIC PoBGBjENGlUIIaCNCkGBAiTEXuMHNmIIYxLTImCHXoMWIqWQVeGZEhOZSpJI6HFDSnSEAdWNAbTAVeJD AgICAgICAgICAgICAgICAgICAgICAgICAgICAgICAgICAgICAgICAgICAgICAgICAgICAgICAgICAgIC VhLGOdBLJmIVGuHWRdURTsLYXgUZReSBYvCB6EYAOd ICAgICAgICAgICAgICAgICAgICAgICAgICAgICAgICAgICAgICAgICAgICAgICAgICAgICAgICAgICAg JNEaXRQfXYZnWNAnBOBfRBUdESRcBLLuWUSlXMKlEXCyCLKtQZ1WEKDkBVBySKUpFXUaNRVhYZYfPLWq ICAgICAgICAgICAgICAgICAgICAgICAgICAgICAgIC HdSEHcMIAdUFJzLSYbUMMbERAlVPWoJOGmBYYaNCEvINToIJWbKBNzSTYgAHOrXJ2IKQNkSZAmAXRwVY AgICAgICAgICAgICAgICAgICAgICAgICAgICAgICAgICAgICAgICAgICAgICAgICAgICAgICAgICAgIC YyNAMhGFBoBAKrZZFnQHKvPYOxJQJcORXtXCHfLC9E TE05vAAcw2R5CLEyYM4rgjz/Ph8SCLkgqwOcyUCpYQ3POeXcCE9npx4BYwUaJF4xsg0ORIkHMoNaK0Z7 eZZmQWSzOZBRLbHaA18dMQawRk91BWndYJWgDaKkRNy4Fu6XKpWsY2prYEVxSbA3UMTdKgU8RQNfHiG2 LUIpKzAtLFpvMP3Ka4DacCTbNFn+Jn0HDZ6wg5VtGB urBDZoVS6mlb5XPEdYLbWqY3S2sKNsF0X8AXvnDn6RXGMoLDGhKlkfOIGBQGfbCK1CQM7vlyK5ZM6SkO HdYCRjNRGduPKfTOa2A71bvWWwORnbEQ6DYSI+Magdy+Jl8ASSOpEKIaZZEwElKiANIFIcQkU21hjTMdGJ OlKJRxCTIfTg1NLOBvR1GnlfFhoRpcrtJxDHBkFBQI DS1QTDacvoJzoBLrdQytDG22bOlwPM4DFw9ESeGkXP3qan4UhVSdWg8LTMZgXy0IHJPiGYQzCQDnMWM2 QJUjDqOvNWshBOBjKWWoTXO5EJDkXGRvBZ8QQrUeCLKmPplaYTunDLDpCBGuhr0WLHUtAYXoGNBqGMQr GNAnHPAfWMatQGEbBURhLDj9NUEdLKWmRU9KTgNzYT NfJBK3VrSyLGNeISZwjo3KIVMnGXLeExx2ZXSuIQKbUCYiLCdxHQTdZIK3Jfi4WHAqPTEpQE9QEhNzDT JwKJT2VWBlCMExCCFelv0BIQOkJWYqWmSbExOuVXGoCXLyQFrwTXKeHEX9FcWeMHVaVGDfYB4REvDsXV EwILt3UJYmYJHuQJNugc2UQHGcHFObZIp9NEHjZNXk MMWwDAocPRSfYTU7AVjzUQFaOSIgLK2PKgHvCSXhADKxVsUcIUKwHXUsqb1YRNEhTFMzVNPmVvGoVZQq HUYjTIghQKOpHLCiEYXhPFIuVUQzFV0AXyLjLSVmHIRsGwJbSINrBHEbvb7JZLNaIZTpZZQ5OuSrNOKk TWXmCZzvXYYpJRY3IUZ2VGIgQSZjWQ0FYqBsFFMoWO YtLYIbXICqGQAafa0INKFsSXMeAsX4RfHqOUZvJIIrRVyzXDPaFED5DFN9NFElXNBePT7JEnWsGWUvPY rdYZwyRFCpVDVwlf5BPPBcYYNgGaI3IyCgSOUrVLRlYGaqLTYnLJE5STS8SFMsQANfWB0AJjXmLSQrDW d0KbYlMHEuUAZusz3WQYKsLLBmMEnyHZZgYMKlBCWb AYysTYUrAQDaUSrqYAXaKBCbGZ3NAqPqTPSyCpwrXkRqTPKdAQWwdz7RFKMvWPPqRKU6YZGyYTFdBXLu NOsrKSCqHTRxSMY9TLEjQZGeJQ9AWfDpTHaiIDWICqd1JDkaU8s0XLItTb7CZ2Fgq3JlWnNxVSAUYLcf OQ6qgsSzDFXrCk8UJ7dNJbfyFDo2SQmjLRd5CMN5G0 G2WFXdMZZoHoNdFHB6LmAjIi6pHQG6Itt7GUVrKjQ8PQViFqi1IeUrPtUjGBPzFFN3NcE5DlMiEI0BOm 6YAiK5KAO4jEXaBs9PToHtKwGCPtTwDO9WPNi= ID Date Data Source [id number] 10/09/2020 02:31:44 PM EDT [facility] Name Value Range Interpretation Code Description Data Debbie rce(s) Supporting Document(s) EKG [facility] XOHJAv3fWkOPMjLtk3SgAgRqGHLoWG9akur6Y5I0uJDgU0VqsHCbt8xfL2RbH8AfRGAcVKAOAH5BgVQs jb2 [file] mY94CpeezI0VPnNzavrDh/h+1fz0p73wFGUbgHhKmv5a9J211YM8al5DGvgJ1/D+paulo/QP6Xj+8/cPbro PpPoPe9+5qSt87sXJ//j/yZt2Xso5VkJQ6Ji/1p832 o8pvO84+06b/T/fjdsyu+7vaFY//N/Oia2ana+u5axxf15I+Y9/i3cmne8gloI/tL+Nz+8uQffdRNpYh ++6jfnh+HjA+z4OD0Xgu6dMq95Nohy2IYD01dr+VGS3Km73o9B85i6+M7/zM/Xg14pdmDmvgJTtdrXk7 yjgWrWgWr0zI0lykPcaQz//U+8FF4XxT+wp8i0fun1 1rFWbP972K+EUH9YoIt/+HMaG9c4s/cqk/iaC7Wi2LK4fg4s4GO/hgrS2m4534B9VYhJek9oa3H/bdGM k4ZfrQqdim4i82/dRbPzx/n5btV55lY7dg4nRB5a8isarZck1g8sTu1a6aVdV/vQK48mCHnekz+6547h 2fla1hKuDwZZwl/tWb3i6H5t5aoyq9p03+7Z7zfy0w acb7S6YNl++pjri/K6r+8OoPz+/lNlo9Sorns+r1n/78/t4z01mCssFPhV37cWPg3+unv/09LY245v7j WvmRy/k5l5iZnyhyzwGI+alXf3h+MsTBzqoP8Ll3Bgr0k9jl0bKd/LxH42d/MR0tVNhU/mFi9e9uhhh5 tr/TP/otEvnl9Ep6NKUwOK/1i0ldHpNKMTm18ht7Jx MUt51bPpqFQTi3cf/dZwhq/[facility]/OBik0pfL5/91Fu+151iqvtgmjmn53L0uoeTshaYfn+qTymH7XCQ5T [file] metal stamper/HQG+XQgK87DS8TNPT9DmLbhRu6+40JbWP3JAxN [file] vp biology/sAKvH5gAL3hwCV0MwCksl9ILgrIlsTGKlQKsSNUXk+lSJu/NR+0txYDQXIM6F53neA5uFAD9OECtV [file] NSAwIFIKCj4+MwJ6WYZ5xJAnRmlaMKPnZxhXQLAND8M= ID Date Data Source [id number] 10/09/2020 02:30:06 PM EDT [facility]PATIE NT INFORMATIONPatient MRN Name Date of Age Gend*PT [id number] Kendra Muro 1935 84 years M IPPT Location Admission Date/Time Visit ID Attending [id number] 10/09/20908 --- Renetta Guzman MD([id number]) EPI ID [facility] Admitting Provider [id number] Renetta Guzman MD([id number])Cardiac Electrophysiology Consult NoteName: Kendra Muro Gender: maleDate of : 1935 Age: 84 yearsDate/Time of Admit: 10/09/2020 9:09 AM Code Status: Full CodePrimary Care Provider:Referring Physician: Bruno ERIC MDReason for consultation: Management of heart blockChief Complaint: Shortness of breathHPI: This patient is a 84 years male with a history of aortic stenosis statuspost ANU today. The patient developed complete heart block post procedure. Heremains intubated.Past HistoryPast Medical History:Diagnosis Date Aortic stenosis Asthma Garza's esophagus Cataract cortical, senile CHF (congestive heart failure) COPD (chronic obstructive pulmonary disease) Coronary artery disease GERD (gastroesophageal reflux disease) [place] (hard of hearing) Hyperlipidemia Hypertension Hypothyroidism Ischemic cardiomyopathy Murmur, cardiac Nonrheumatic aortic (valve) stenosis PVD (peripheral vascular disease)Past Surgical History:Procedure Laterality Date CARDIAC CATHETERIZATION CARDIAC CATHETERIZATION N/A 07/20/2020 Procedure: Right heart cath; Surgeon: Renetta Guzman MD; Laterality: N/A; CARDIAC CATHETERIZATION N/A 07/20/2020 Procedure: Left heart cath; Surgeon: Renetta Guzman MD; Laterality: N/A; CARDIAC CATHETERIZATION N/A 07/21/2020 Procedure: Cardiac catheterization; Surgeon: Renetta Guzman MD; Laterality:N/A; CARDIAC CATHETERIZATION N/A 08/02/2020 Procedure: Right heart cath; Surgeon: Renetta Guzman MD; Laterality: N/A; CARDIAC CATHETERIZATION N/A 08/02/2020 Procedure: Left heart cath; Surgeon: Renetta Guzman MD; Laterality: N/A; CARDIAC CATHETERIZATION N/A 08/02/2020 Procedure: Coronary angiography; Surgeon: Renetta Guzman MD; Laterality:N/A; CARDIAC CATHETERIZATION N/A 08/02/2020 Procedure: Percutaneous coronary intervention; Surgeon: Renetta Guzman MD;Laterality: N/A; CATARACT EXTRACTION EXTRACAPSULAR W/ INTRAOCULAR LENS IMPLANTATION Bilateral COLONOSCOPY CORONARY STENT PLACEMENT FEMORAL EXPLORATION due to injury - on chronic coumadin therapy JOINT REPLACEMENT b/l knees TOTAL KNEE ARTHROPLASTY BilateralFamily HistoryProblem Relation Age of Onset Heart failure Mother Diabetes Father Malig Hyperthermia Neg HxSocial HistorySocial History Narrative Not on fileSocial HistorySocioeconomic History Marital status: Spouse name: Not on file Number of children: 1 Years of education: Not on file Highest education level: Not on fileOccupational History 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: 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 Use Smoking status: Former Smoker Packs/day: 3.00 Years: 40.00 Pack years: 120.00 Types: Cigarettes Quit date: 1994 Years since quittin.5 Smokeless tobacco: Never UsedVaping Use Vaping Use: Never usedSubstance and Sexual Activity Alcohol use: Not Currently Drug use: Never Sexual activity: Not on fileOther Topics Concern Not on fileSocial History Narrative Not on fileSocial Determinants of HealthFinancial Resource Strain: Difficulty of Paying Living Expenses:Food Insecurity: Worried About Running Out of Food in the Last Year: Ran Out of Food in the Last Year:Transportation Needs: Lack of Transportation (Medical): Lack of Transportation (Non-Medical):Physical Activity: Days of Exercise per Week: Minutes of Exercise per Session:Stress: Feeling of Stress :Social Connections: Frequency of Communication with Friends and Family: Frequency of Social Gatherings with Friends and Family: Attends Sabianism Services: Active Member of Clubs or Organizations: Attends Club or Organization Meetings: Marital Status:Intimate Partner Violence: Fear of Current or Ex-Partner: Emotionally Abused: Physically Abused: Sexually Abused:Medications and AllergiesALLERGIES/SENSITIVITIES: Fish- derived productsMedications Prior to AdmissionMedication Sig acetaminophen (TYLENOL) 500 MG tablet Take 500 mg by mouth every 6 (six) hoursas needed for pain albuterol (PROVENTIL HFA;VENTOLIN HFA) 108 (90 Base) MCG/ACT inhaler Inhale 2puffs every 4 (four) hours as needed for wheezing amLODIPine (NORVASC) 5 MG tablet Take 7.5 mg by mouth daily amoxicillin (AMOXIL) 500 MG capsule Take 2,000 mg by mouth once Before dentalprocedures atenolol (TENORMIN) 50 MG tablet Take 0.5 tablets (25 mg total) by mouth daily atorvastatin (LIPITOR) 40 MG tablet Take 40 mg by mouth daily brimonidine (ALPHAGAN) 0.2 % ophthalmic solution Administer 1 drop to botheyes 2 (two) times a day clopidogrel (PLAVIX) 75 MG tablet Take 1 tablet (75 mg total) by mouth dailyPlease take 4 pills the night before the procedure (Patient taking differently:Take 75 mg by mouth daily ) fluticasone-salmeterol (Advair Diskus) 250-50 MCG/DOSE DISKUS Inhale 1 puff 2(two) times a day latanoprost (XALATAN) 0.005 % ophthalmic solution Administer 1 drop to bot heyes nightly levothyroxine (SYNTHROID, LEVOTHROID) 75 MCG tablet Take 75 mcg by mouth daily losartan (COZAAR) 100 MG tablet Take 0.5 tablets (50 mg total) by mouth daily(Patient taking differently: Take 100 mg by mouth daily ) nitroglycerin (NITROSTAT) 0.[address] 0.4 mg under the tongue every5 (five) minutes as needed for chest pain Pt reports taking 1 pill SL today bche was anxious. Could not report if the pill had any effect Omeprazole 20 MG TBDD Take 20 mg by mouth daily polyethylene glycol (GLYCOLAX) 17 GM/SCOOP powder Take 17 g by mouth daily asneeded for constipation 1 capful= 17 g potassium chloride 20 MEQ TBCR Take 1 tablet (20 mEq total) by mouth daily torsemide (DEMADEX) 100 MG tablet Take 1 tablet (100 mg total) by mouth diane y warfarin (COUMADIN) 5 MG tablet Take 5 mg by mouth dailyCurrent Inpatient Medications:Scheduled Meds: [START ON 10/10/2020] atorvastatin 40 mg Oral Daily brimonidine 1 drop Both Eyes BID ceFAZolin (ANCEF) IV 1 g Intravenous Q8H [START ON 10/10/2020] clopidogrel 75 mg Oral Daily [START ON 10/10/2020] docusate sodium 100 mg Oral BID latanoprost 1 drop Both Eyes Nightly [START ON 10/10/2020] levothyroxine 75 mcg Oral Daily mometasone-formoterol 2 puff Inhalation RTBID normal saline flush 3 mL Intravenous Per Protocol [START ON 10/10/2020] pantoprazole 40 mg Oral DailyContinuous Infusions: insulin regular infusion 1 unit/ml in NS propofol sodium chloride sodium chloridePRN Meds: acetaminophen OR acetaminophen, albuterol, albuterol, atropinesulfate, [START ON 10/12/2020] bisacodyl, fentaNYL Citrate (PF), HYDROmorphone,labetalol, metoclopramide, nitroglycerin, ondansetron, warfarin daily dose,[START ON 10/11/2020] polyethylene glycol (MIRALAX) powderPhysicalBlood Pressure: BP: 143/76 Pulse: Heart Rate: 80Temperature: Temp: 97.4 F Respirations: Resp: 18Admission Weight: Weight: 73.1 kg (161 lb 2.5 oz) O2 Saturation: SpO2: 100 %Today's Weight: Weight: 73.1 kg (161 lb 2.5 oz) BMI: Body mass index is 28.55kg/m .DiagnosticsLabBMP:Lab ResultsComponent Value Date NA 141 10/04/2020 K 3.6 10/04/2020 CL 106 10/04/2020 CO2 29 10/04/2020 ANIONGAP 6 (L) 10/04/2020 CALCIUM 9.2 10/04/2020 GLU 102 (H) 10/04/2020 BUN 26 (H) 10/04/2020 CREATININE 1.38 (H) 10/04/2020 GFRAA 60 10/04/2020 GFRNONAA 49 (L) 10/04/2020BC Brief:Lab ResultsComponent Value Date WBC 7.2 10/04/2020 HGB 12.9 (L) 10/04/2020 HCT 35 (L) 10/09/2020 HCT 38.9 (L) 10/04/2020 PLT 261 10/04/2020Telemetry: Sinus rhythm with interventricular conduction delayEKG: Sinus rhythm with interventricular conduction delayAssessment & PlanPrincipal Problem: Nonrheumatic aortic valve stenosis: This is an 84-year-old gentleman with 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 Currently the patientis not in complete heart block and is conducting normally. However he is athigh risk for recurrent heart block and given his previous known diagnosis of acardiomyopathy he meets the criteria for an ICD based on primary prevention. Myrecommendation is that the patient undergo insertion of a biventricular ICD as Isuspect he will require long-term pacing. I will place him on the schedule fortomorrow.Signature: Andressa Villarreal MD, [facility], [facility] CENTERCardiac Electrophysiology and Arrhythmia ServiceDate: October 09, 2020Time: 2:28 PMThis document or parts of this document, were dictated using [employer], Incsoftware. A reasonable attempt at proofreading has been ma de to minimize errors.Please call with any questions or corrections. Name Value Range Interpretation Code Description Data Debbie rce(s) Supporting Document(s) ID Date Data Source [id number] 10/09/2020 02:17:26 PM EDT [facility]PATIE NT INFORMATIONPatient MRN Name Date of Age Gend*PT [id number] Kendra Muro 1935 84 years M IPPT Location Admission Date/Time Visit ID Attending [id number] 10/09/20 0909 --- Renetta Guzman MD([id number]) EPI ID CSN Admitting Provider [id number] Renetta Guzman MD([id number]) [place] [address] OPERATIVE REPORT OPNAME: KENDRA MURO#: [id number] #: [id number] ADMISSION DATE: 10/09/2020OB: 1935 SEX: M PT TYPE: I CRDACCT #: [id number] CARE PHYSICIAN: SAMEER MCKEONGDATE OF OPERATION: 10/09/2020URGEON:ANNELISE Dos Santos- SURGEON:RENARD CobbREOPERATIVE DIAGNOSIS:Symptomatic aortic valve stenosis.POSTOPERATIVE DIAGNOSIS:Symptomatic aortic valve stenosis.SURGICAL PROCEDURE:Transfemoral transcatheter aortic valve replacement with 34 mm Evolut Rvalve.BRIEF HISTORY:This is an 84-year-old male patient, very frail and with symptoms offatigue and shortness of breath. The patient has severe aortic valvestenosis. He was evaluated by the multidisciplinary team and felt to be acandidate for transcatheter aortic valve replacement.SURGICAL TECHNIQUE:After informed consent was obtained, [facility] after anesthesia was performed, the patient wassterilized and draped in both sides of groin area. Femoral access wasachieved on both femoral artery. The pigtail was placed through the leftside femoral artery and right-sided femoral artery was accessed and dilatedand the Perclose sutures were placed and then the aortic valve was crossed. Balloon valvuloplasty was performed and then a 34 mm Evolut R valve wasplaced, was deployed with 1 successful attempt. The patient did develop acomplete heart block after the procedure and required temporary pacing.Otherwise, the patient was stable during the entire case.JACKSON Shultz/KEIRY Job #: [id number] DOC #: [id number]: Renetta Guzman MD Name Value Range Interpretation Code Description Data Debbie rce(s) Supporting Document(s) ID Date Data Source [id number] 10/09/2020 02:13:52 PM EDT [address] [address]Vwcslta Name: KENDRA MURODOB: 1935Sex: MOrdering Provider: RENETTA Sanchez Prov: RENETTA GUZMANReferrfarideh Provider: Procedure Performed: XR CHEST PORTABLEExam Date: 10/09/2020 14:01MRN: [id number] Number: [id number] Class: InpatientAccount #: [id number] for Exam: Post TAVR procedureTechnique: AP portable view obtained.Comparison: 07/20/2020Findings: Patient is status post transcatheter aortic valve replacement. The aortic prosthesis is in satisfactory position.Tracheostomy tube and right-sided transvenous pacer wire in satisfactory position. There is no evidence of pneumothorax, mediastinal widening or pleural effusion. Increased interstitial density within the lung hollis is noted which is decreased from June 2020. The chronicity of this is uncertain. This may represent a mild degree of edema or superimposed fibrosis.IMPRESSION: Satisfactory appearance status post transcatheter aortic v alve replacement.Report electronically signed by: ADRIÁN QUINTERO On 10/09/2020 2:13 PMWorkstation ID: [id number] Name Value Range Interpretation Code Description Data Debbie rce(s) Supporting Document(s) ID Date Data Source [id number] 10/09/2020 05:12:40 PM EDT [facility] Name Value Range Interpretation Code Description Data Debbie rce(s) Supporting Document(s) POC SOURCE [facility] PUNCTURE SITE [facility] O2 THERAPY [facility] POC FIO2 80 [facility] JAIDA TEST [facility] MODE [facility] TIDAL VOLUME 500 mL [facility] RATE 16 BPM [facility] PEEP/MAP 10 CM H2O [facility] PRESSURE SUPPORT 14 CM H2O [facility] SP RATE 0 BMP [facility] POC PH 7.30 pH (7.35-7.45) L [facility] POC PCO2 50.6 MMHG (32.0-48.0) H [facility] POC PO2 204 MMHG (83-108) H [facility] POC SAT O2 100 % (95-99) H [facility] POC BASE DEFICIT 2 MMOL/L (0-2) [facility] POC HCO3 24.9 MMOL/L (21.0-29.0) [facility] POC TOTAL CO2 26 MMOL/L (23.0-32.0) [facility] PERFORMED BY [facility] ID Date Data Source [id number] 10/09/2020 01:58:41 PM EDT [facility]PATIE NT INFORMATIONPatient MRN Name Date of Age Gend*PT [id number] Kendra Muro 1935 84 years M IPPT Location Admission Date/Time Visit ID Attending [id number] 10/09/20 0909 --- Renetta Guzman MD([id number]) EPI ID CSN Admitting Provider [id number] Renetta Guzman MD([id number])TAVR (Transcatheter Aortic Valve Replacement)Patient Name: Kendra ConklinerMedical Record No: [id number] of : 1935 Age 84 yearsPrimary Physician: SAMEER TRISTAN MD PCP Vhaz of Surgery: 10/09/2020Interventional Emotional Support Teacher: Renetta Guzman MDHeart Valve Team: Dr. Kerr and Dr. HarrisProcedure: Transcatheter aortic valve replacement with a 34 mm evolute pro valvePre-procedure Diagnosis: Severe symptomatic aortic stenosisPost-procedure Diagnosis: Severe symptomatic aortic stenosis symptoms/Indication:84-year-old man with coronary artery disease post elodia testenting to the left circumflex and recent drug-eluting stent in the right With ischemic cardiomyopathy and mitral insufficiency with severe leftventricular systolic dysfunction. He had an echocardiogram that showed aorticstenosis with a gradient in the 30s but his calcium score was elevatedsuggestive of severe low-flow low gradient aortic stenosis. He is on chronicCoumadin therapy for vascular injury remotely to his right femoral artery.Physical exam: Blood pressure 100/60 heart rate 70 respiratory rate 16EKG: Sinus rhythm with intraventricular conduction delay and repolarizationabnormalities.Creatinine: 1.3Procedure descriptionAccess: Right femoralValve type: 34 mm self-expanding evolute valveRight and left femoral arterial access was obtained. From the right wePerclosed and upsized to an 18 Lebanese sheath. From the left we advanced thepigtail to the noncoronary cusp and aortic root angiogram was obtained. Balloonvalvuloplasty was obtained using a 24 mm balloon with rapid pacing at 180 bpm.We then advanced the valve after retrieval of the introducer sheath and itsinline sheath over the safari wire that was in the left ventricle and it wasdeployed. The final angiogram and MIMI showed no significant insufficiency.There was complete block after deploying the valve. The patient was stillpacing and he was sent to the intensive care unit because of his heart failuresymptoms. His left ventricular pressure was 115/16 and there was no significantgradient on pullback.Estimated Blood Loss: MinimalComplications: NoneSedation: General anesthesiaSpecimens: NoneContrast used: See scanned cath report document under the media tab.Implants: 34 mm evolute valveConclusion1. Severe symptomatic aortic stenosis with heart failure post successful TAVRwith a 34 mm evolute valve.2. Known coronary artery disease post recent drug-eluting stent to the right andremote bare-metal stent to the left circumflex.3. Complete AV block post TAVR. The patient will be seen by electrophysiologyfor consideration of BiV ICD.4. Chronic Coumadin therapy for remote vascular injury. We will continueCoumadin and Plavix since the patient has no bleeding complication with them.5. Normal left ventricular filling pressu re at the end of the procedure. I willwithhold Lasix at this time and follow-up creatinine.6. 3+ mitral insufficiency seen on the MIMI. Plan1. Admit to ICU2. Telemetry class I3. Access: Closed4. Pacemaker: Transvenous until BiV ICD5. Anticoagulation: Coumadin and PlavixSignature: Renetta Guzman, MDDate: 10/09/2020Time: 1:34 PMCC: Dr. Chávez document or parts of this document, were dictated using [employer]. A reasonable attempt at proofreading has been made to minimize errors.Please call with any questions or corrections. Name Value Range Interpretation Code Description Data [facility] rce(s) Supporting Document(s) ID Date Data Source [id number] 10/09/2020 01:51:20 PM EDT [facility] Name Value Range Interpretation Code Description Data Debbie rce(s) Supporting Document(s) EKG [facility] DQNNSp3wSaLPZzUgx5ZxLxWyQEQjBE2jqva1J6D9oEUeM8CtrHSya7rcW5FwS3KtNNUbLSOVNH8YpFPc jb2 [file] 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+pKxqSgG0toe+N/6S6ZLALvi+o96TRtoLPOpoKVfDDOsWTGzROACzxLpKNEbcRyZmVYnGpxvKp4CgE [file] KHvO05JGOMsxH/Juan Carlos/GTZbxM2IoLwvE5OkfuY/FYpGgnHoukjTHs/8LQf+cgnGP/F4b/fxMsb8hg/i8Q [file] D8EcW+Shipping Clerk/Admin+0VJ96ckFj05axzp+wWTntef4s6LQmHQMDFbd74mHa3tJ5528mxRwAfniN8++wlmhP+fQkf/ [file] 71q5thBq8QV4uVPIVogmhpzu0yqrnb8DF8NDMI4FkaAWcVgQwJOyQo/uzLkDYbP0GLY+UibT9riA+managed care coordinator [file] RsQXPPQj2Bd885YRHjQXZAMca+SgsbhFJakUasUPCGFTR1Rqt9FbAyHU4G ID Date Data Source [id number] 10/09/2020 02:24:12 PM EDT [facility] Name Value Range Interpretation Code Description Data Debbie rce(s) Supporting Document(s) POC NOVA GLU 210 mg/dL (70-99) H [facility] PERFORMED BY [facility] ID Date Data Source [id number] 10/09/2020 03:07:42 PM EDT [facility] Name Value Range Interpretation Code Description Data Debbie rce(s) Supporting Document(s) MAGNESIUM 1.8 mg/dL (1.7-2.4) [facility] ID Date Data Source [id number] 10/09/2020 03:07:42 PM EDT [facility] Name Value Range Interpretation Code Description Data Debbie rce(s) Supporting Document(s) SODIUM 141 mmol/L (136-145) [facility] POTASSIUM 3.5 mmol/L (3.6-5.2) L [facility] CHLORIDE 109 mmol/L (100-108) H [facility] CO2 23 mmol/L (22-31) [facility] ANION GAP 9 mmol/L (7-16) [facility] UREA NITROGEN 18 mg/dL (7-24) [facility] CREATININE 1.32 mg/dL (0.80-1.30) H [facility] BUN/CREAT RATIO 13.6 RATIO (10.0-20.0) [facility] GLUCOSE 189 mg/dL (70-99) H [facility] CALCIUM 9.2 mg/dL (8.4-10.2) [facility] GFR 52 ml/min/1.73m2 (>59) L [facility] GFR ( AMER) >60 ml/min/1.73m2 (>59) [facility] GFR INTERPRETATION [facility] --NORMAL KIDNEY FUNCTION OR MILD DISEASE - GFR >OR= 60CHRONIC KIDNEY DISEASE - GFR 15 - 59RENAL FAILURE - GFR <15 Est. GFR calculation based on the MDRDstudy equation, which assumes a steadystate for creatinine. Est. GFR should notbe used for medication dosing. ID Date Data Source [id number] 10/09/2020 02:55:19 PM EDT [facility] Name Value Range Interpretation Code Description Data Debbie rce(s) Supporting Document(s) PT 15.1 s (9.2-11.9) H [facility] PERFORMED AT [address] [place], [place] [address] [address] INR 1.47 [facility] SUGGESTED THERAPEUTIC RANGES USING INR F ORSTABILIZED ANTICOAGULATED PATIENTS:STANDARD DOSE THERAPY INR 2.0-3.0 DVT, PE, PREVENT DVT OR EMBOLISMHIGH DOSE THERAPY INR 2.5-3.5 PREVENT EMBOLISM FROM MECHANICAL HEART VALVE ID Date Data Source [id number] 10/09/2020 02:44:34 PM EDT [facility] Name Value Range Interpretation Code Description Data Debbie rce(s) Supporting Document(s) WBC 24.6 10*3/uL (4.1-11.0) H [facility] RBC 4.36 10*6/uL (4.60-6.10) L [facility] HGB 12.4 g/dL (13.5-18.0) L [facility] HCT 38.2 % (41.0-53.0) L [facility] MCV 87.5 fL (80.0-95.0) [facility] MCH 28.5 pg (27.0-32.0) [facility] MCHC 32.5 g/dL (32.0-36.0) [facility] RDW 15.2 % (10.5-14.5) H [facility] PLT 234 10*3/uL (150-450) [facility] MPV 9.4 fL (7.1-10.7) [facility] ID Date Data Source [id number] 10/09/2020 12:44:06 PM EDT [facility] Name Value Range Interpretation Code Description Data Debbie rce(s) Supporting Document(s) POC ACT 202 s (80-140) H [facility] PERFORMED BY [facility] ID Date Data Source [id number] 10/09/2020 12:39:44 PM EDT [facility] Name Value Range Interpretation Code Description Data Debbie rce(s) Supporting Document(s) POC SOURCE [facility] CP BYPASS [facility] POC PH 7.36 pH (7.35-7.45) [facility] POC PCO2 41.0 MMHG (32.0-48.0) [facility] POC PO2 91 MMHG (83-108) [facility] POC SAT O2 97 % (95-99) [facility] POC BASE DEFICIT 2 MMOL/L (0-2) [facility] POC HCO3 23.2 MMOL/L (21.0-29.0) [facility] POC TOTAL CO2 24 MMOL/L (23.0-32.0) [facility] BY [facility] POC HCT 35 % (41.0-53.0) L [facility] POC SODIUM 141 MMOL/L (136-145) [facility] POC POTASSIUM 3.7 MMOL/L (3.6-5.2) [facility] POC IONIZED CALCIUM 4.8 MG/DL (4.6-5.3) [facility] POC GLU 158 MG/DL (70-99) H [facility] PERFORM LAB [facility] ID Date Data Source [id number] 10/09/2020 12:24:42 PM EDT [facility]PATIE NT INFORMATIONPatient MRN Name Date of Age Gend*PT [id number] Kendra Muro 1935 84 years M IPPT Location Admission Date/Time Visit ID Attending Provider --- --- --- --- EPI ID CSN Admitting Provider [id number] ---Introducer AdditionsPatient location during procedure: ORIndications for introducer addition: Temporary pacingStaffingPerformed by: Rito Downey CRNAApproved by: STACY Galindoompleted: patient identified, risks and benefits discussed, surgical consentobtained, anesthesia consent obtained, monitors and equipment checked, pre-opevaluation completed, timeout performed, patient was prepped and draped in usualsterile fashion,Introducer AdditionsIntroducer addition: Transvenous PacerInsertion depth (cm): 35Introducer placed: At time of introducer additionPacing wires procedure: Pacing wire was introduced, Pacing box set at VOO andWire was advanced using balloon flow directed method until ventricular capturewas notedType of pacing wires: VentricularPacing box rate: 120Pacing threshold obtained at: 1AssessmentSecurement method: securement devicePlacement verification: fluoroscopyAssessment: tolerated well, no changes to vital signs and catheter flushed [id number] NS Name Value Range Interpretation Code Description Data Debbie rce(s) Supporting Document(s) ID Date Data Source [id number] 10/09/2020 11:51:59 AM EDT [facility] [place] NT INFORMATIONPatient MRN Name Date of Age Gend*PT [id number] Kendra Muro 1935 84 years M IPPT Location Admission Date/Time Visit ID Attending Provider --- --- --- --- EPI ID CSN Admitting Provider [id number] ---Central Line InsertionPatient location during procedure: CV hybrid roomIndications for central line: hemodynamic monitoring, temporary pacin g,vasoactive infusions and hypovolemiaStaffingPerformed by: Rito Downey CRNACompleted: patient identified, risks and benefits discussed, surgical consentobtained, anesthesia consent obtained, monitors and equipment checked, pre-opevaluation completed, timeout performed, patient was prepped and draped in usualsterile fashion,Central LineCatheter type: IntroducerCVC type: non- tunnelledCatheter size: 5 FrSite prep: chlorhexidine gluconateLaterality: rightLocation: internal jugularTechnique: CVC inserted using ultrasound guidanceProcedure: Guidewire passed through the catheter and No arrythmiasAssess mentSecurement method: SuturedPlacement verification: Blood returnAssessment: tolerated well Name Value Range Interpretation Code Description Data Debbie rce(s) Supporting Document(s) ID Date Data Source [id number] 10/09/2020 11:47:43 AM EDT [facility] [place] NT INFORMATIONPatient MRN Name Date of Age Gend*PT [id number] Kendra Muro 1935 84 years M IPPT Location Admission Date/Time Visit ID Attending Provider --- --- --- --- EPI ID CSN Admitting Provider [id number] ---Arterial Line PlacementPatient location during procedure: CV hybrid roomIndications for arterial line: multiple ABGs, respiratory failure an dhemodynamic monitoringStaffingPerformed by: Rito Downey CRNAApproved by: STACY Galindoompleted: patient identified, risks and benefits discussed, surgical consentobtained, anesthesia consent obtained, monitors and equipment checked, pre-opevaluation completed, timeout performed, patient was prepped and draped in usualsterile fashion,Arterial Line InsertionSite prep: chlorhexidineLocal anesthetic: lidocaine 1% without epinephrineLaterality: leftLocation: radial arteryNeedle gauge: MP 5 FTechnique: Seldinger technique used and ultrasound guidedNumber of attempts: 1AssessmentSutured: noDressing: dressing appliedPatient tolerance: tolerated well Name Value Range Interpretation Code Description Data Debbie rce(s) Supporting Document(s) ID Date Data Source [id number] 10/09/2020 11:46:57 AM EDT [facility]PATIE NT INFORMATIONPatient MRN Name Date of Age Gend*PT [id number] Kendra Muro 1935 84 years M IPPT Location Admission Date/Time Visit ID Attending Provider --- --- --- --- EPI ID CSN Admitting Provider [id number] ---AirwayPatient location during procedure: ORUrgency: electiveDifficult airway: yes Poor dentition. All xbjafogx3y intact after intubationAdvanced airway equipment used: yesStaffingPerformed by: Jeanine Pepper MDAnesthesiologist: Jeanine Pepper MDIndications and Patient ConditionIndications for airway management: anesthesiaPreoxygenated: yesPatient position: sniffingIn-line stabilization: noMask ventilation: 1 - vent by maskFinal Airway/ApproachesFinal airway type: ETTNumber of attempts at final approach: 1Number of other approaches attempted: 0Final Airway DetailsFinal ETT airway: ETT - singleCuffed: yesTechnique used for successful ETT placement: GlidescopeCricoid pressure: noRSI: noInsertion site: oralBlade type/size: MAC 3.5ETT size: 8.0 mmMeasured from: lipsETT to lips: 24 cmPlacement verified by: chest auscultation and + DUWE5Meswuqouhavd: CTA and equal breath sounds bilateralGrade view: grade I - full view of glottis Name Value Range Interpretation Code Description Data Debbie rce(s) Supporting Document(s) ID Date Data Source [id number] 10/09/2020 12:39:39 PM EDT [facility] Name Value Range Interpretation Code Description Data Debbie rce(s) Supporting Document(s) POC SOURCE [facility] CP BYPASS [facility] P[facility] PH 7.37 pH (7.35-7.45) [facility] PCO2 43.1 MMHG (32.0-48.0) [facility] PO2 101 MMHG (83-108) [facility] P[facility] SAT O2 98 % (95-99) [facility] P[facility] BASE EXCESS 0 MMOL/L (0-3) [facility] P[facility] HCO3 25.2 MMOL/L (21.0-29.0) [facility] TOTAL CO2 26 MMOL/L (23.0-32.0) [facility] PERFORMED BY [facility] POC HCT 39 % (41.0-53.0) L [facility] P[facility] SODIUM 142 MMOL/L (136-145) [facility] P[facility] POTASSIUM 3.4 MMOL/L (3.6-5.2) L [facility] P[facility] IONIZED CALCIUM 5.0 MG/DL (4.6-5.3) [facility] P[facility] GLU 115 MG/DL (70-99) H [facility] PERFORM LAB [facility] ID Date Data Source [id number] 10/09/2020 11:49:08 AM EDT [facility] Name Value Range Interpretation Code Description Data Debbie rce(s) Supporting Document(s) POC ACT 120 s (80-140) [facility] PERFORMED BY [facility] ID Date Data Source [id number] 10/09/2020 10:07:29 AM EDT [facility] Name Value Range Interpretation Code Description Data Debbie rce(s) Supporting Document(s) POC PTINR 1.1 [facility] SUGGESTED THERAPEUTIC RANGES USING INR F ORSTABILIZED ANTICOAGULATED PATIENTS:STANDARD DOSE THERAPY INR 2.0-3.0 DVT, PE, PREVENT DVT OR EMBOLISMHIGH DOSE THERAPY INR 2.5-3.5 PREVENT EMBOLISM FROM MECHANICAL HEART VALVEPERFORMED BY [facility] ID Date Data Source [id number] 10/09/2020 10:28:16 AM EDT [facility] PATIENT ABO/Rh A POSITIVEBLO OD BANK COMMENT BLOOD TYPE CONFIRMED. Name Value Range Interpretation Code Description Data Debbie rce(s) Supporting Document(s) ID Date Data Source [id number] 10/09/2020 10:02:35 AM EDT [facility] Name Value Range Interpretation Code Description Data Debbie rce(s) Supporting Document(s) POC NOVA GLU 101 mg/dL (70-99) H [facility]FOR[facility] BY [facility] ID Date Data Source [id number] 10/11/2020 01:00:37 AM EDT [facility] SPEC EXP DATE 10/10/2020TEST ING SITE PERFORMED AT [address] [place] [address] [id number] NUMBER [id number] COMPONENT TYPE LEUKOPOOR RED CELLSUNIT DIVISION 00STATUS OF UNIT REL FROM ALLOCTRANSFUSION STATUS OK TO TRANSFUSECROSSMATCH RESULT COMPATIBLEUNIT NUMBER [id number] COMPONENT TYPE LEUKOPOOR RED CELLSUNIT DIVISION 00STATUS OF UNIT REL FROM ALLOCTRANSFUSION STATUS OK TO TRANSFUSECROSSMATCH RESULT COMPATIBLEUNIT NUMBER [id number] COMPONENT TYPE LEUKOPOOR RED CELLSUNIT DIVISION 00STATUS OF UNIT REL FROM ALLOCTRANSFUSION STATUS OK TO TRANSFUSECROSSMATCH RESULT COMPATIBLEUNIT NUMBER [id number] COMPONENT TYPE LEUKOPOOR RED CELLSUNIT DIVISION 00STATUS OF UNIT REL FROM ALLOCTRANSFUSION STATUS OK TO TRANSFUSECROSSMATCH RESULT COMPATIBLE Name Value Range Interpretation Code Description Data Debbie rce(s) Supporting Document(s) TRANSFUSE RED CELLS [facility] TESTING SITE PERFORMED AT [address] [place] [address] [id number] ID Date Data Source [id number] 10/04/2020 11:09:05 AM EDT [facility] Name Value Range Interpretation Code Description Data Debbie rce(s) Supporting Document(s) EKG [facility] [id number] jb2 [file] [id number]/[id number]+[id number]/0f//IT TECHNICIAN+cJ+NVf/5//+97/9X+V/// [file] [id number]+Juan A/[id number]+i1zjkCAYvT4dpCYDPc3 [file] Real [file] [id number]= ID Date Data Source [id number] 10/04/2020 08:52:45 AM EDT [facility]PATIE NT INFORMATIONPatient MRN Name Date of Age Gend*PT [id number] Kendra Muro 1935 84 years M OPPT Location Admission Date/Time Visit ID Attending Provider --- --- --- Renetta Guzman MD([id number]) EPI ID CSN Admitting Provider [id number] ---HISTORY PHYSICALName: Kendra Muro : 1935 Sex: male Care Provider: Macy ERICending Physician: Dr. HarrisInformant: The patient who is reliable. Accompanied by his wifeChief Complaint: " I need heart valve done"HISTORY OF PRESENT ILLNESS: Mr Muro is a 84 years old white male with ahistory of CAD s/p stenting, COPD, ischemic cardiomyopathy, hypertension,hyperlipidemia, hard of hearing, congestive heart failure, and GERD who wasfound to have worsening heart murmur in February 2020. Subsequently, he wasreferred to bluing oven tender for further evaluation. Most up-to-date echocardiogramdated 08/09/2020 showed severe calcific aortic stenosis and severe left atrialenlargement, EF 30 to 35%. Cardiac catheterization dated 08/02/2020 showedsevere proximal right coronary artery stenosis with calcification postsuccessful drug-eluting stent placement.Patient does complain of shortness of breath on exertion and fatigue. Deniesany chest pain, heart palpitation, PND, peripheral edema, lightheadedness, orsyncope. With above findings, patient met with Dr. Harris. Options werediscussed. Patient is now scheduled to undergoTRANSCATHETER AORTIC VALVEIMPLANT FEMORAL on 10/09/20PAST MEDICAL HISTORY:Past Medical History:Diagnosis Date Aortic stenosis Asthma Garza's esophagus Cataract cortical, senile CHF (congestive heart failure) COPD (chronic obstructive pulmonary disease) Coronary artery disease GERD (gastroesophageal reflux disease) [place] (hard of hearing) Hyperlipidemia Hypertension Hypothyroidism Ischemic cardiomyopathy Murmur, cardiac Nonrheumatic aortic (valve) stenosis PVD (peripheral vascular disease)PAST SURGICAL HISTORY:Past Surgical History:Procedure Laterality Date CARDIAC CATHETERIZATION CARDIAC CATHETERIZATION N/A 07/20/2020 Procedure: Right heart cath; Surgeon: Renetta Guzman MD; Laterality: N/A; CARDIAC CATHETERIZATION N/A 07/20/2020 Procedure: Left heart cath; Surgeon: Renetta Guzman MD; Laterality: N/A; CARDIAC CATHETERIZATION N/A 07/21/2020 Procedure: Cardiac catheterization; Surgeon: Renetta Guzman MD; Laterality:N/A; CARDIAC CATHETERIZATION N/A 08/02/2020 Procedure: Right heart cath; Surgeon: Renetta Guzman MD; Laterality: N/A; CARDIAC CATHETERIZATION N/A 08/02/2020 Procedure: Left heart cath; Surgeon: Renetta Guzman MD; Laterality: N/A; CARDIAC CATHETERIZATION N/A 08/02/2020 Procedure: Coronary angiography; Surgeon: Renetta Guzman MD; Laterality:N/A; CARDIAC CATHETERIZATION N/A 08/02/2020 Procedure: Percutaneous coronary intervention; Surgeon: Renetta Guzman MD;Laterality: N/A; CATARACT EXTRACTION EXTRACAPSULAR W/ INTRAOCULAR LENS IMPLANTATION Bilateral COLONOSCOPY CORONARY STENT PLACEMENT FEMORAL EXPLORATION due to injury - on chronic coumadin therapy TOTAL KNEE ARTHROPLASTY BilateralALLERGIES:AllergiesAllergen Reactions Fish-Derived Products Swelling and Facial SwellingMEDICATIONS:Prior to Admission medicationsMedication Sig Start Date End Date Taking? Authorizing Provideracetaminophen (TYLENOL) 500 MG tablet Take 500 mg by mouth every 6 (six) hoursas needed for pain Historical Provider, Yaniralbuterol (PROVENTIL HFA;VENTOLIN HFA) 108 (90 Base) MCG/ACT inhaler Inhale 2puffs every 4 (four) hours as needed for wheezing Historical Provider, YaniramLODIPine (NORVASC) 5 MG tablet Take 7.5 mg by mouth daily HistoricalProvider, Yaniramoxicillin (AMOXIL) 500 MG capsule Take 2,000 mg by mouth once Before dentalprocedures Historical Provider, Yaniratenolol (TENORMIN) 50 MG tablet Take 0.5 tablets (25 mg total) by mouth daily07/22/20 Renetta Guzman, Yaniratorvastatin (LIPITOR) 40 MG tablet Take 40 mg by mouth daily HistoricalProvider, brimonidine (ALPHAGAN) 0.2 % ophthalmic solution Administer 1 drop to both eyes2 (two) times a day Historical Provider, Stacylopidogrel (PLAVIX) 75 MG tablet Take 1 tablet (75 mg total) by mouth dailyPlease take 4 pills the night before the procedurePatient taking differently: Take 75 mg by mouth daily 08/02/20 Renetta Guzman MDfluticasone-salmeterol (Advair Diskus) 250-50 MCG/DOSE DISKUS Inhale 1 puff 2(two) times a day Historical Provider, latanoprost (XALATAN) 0.005 % ophthalmic solution Administer 1 drop to both eyesnightly Historical Provider, levothyroxine (SYNTHROID, LEVOTHROID) 75 MCG tablet Take 75 mcg by mouth dailyHistorical Provider, losartan (COZAAR) 100 MG tablet Take 0.5 tablets (50 mg total) by mouth dailyPatient taking differently: Take 100 mg by mouth daily 07/21/20 MD Lorenanitroglycerin (NITROSTAT) 0.[address] 0.4 mg under the tongue every 5(five) minutes as needed for chest pain Pt reports taking 1 pill SL today bc hewas anxious. Could not report if the pill had any effect Historical Provider,Omeprazole 20 MG TBDD Take 20 mg by mouth daily Historical Provider, Renardolyethylene glycol (GLYCOLAX) 17 GM/SCOOP powder Take 17 g by mouth daily asneeded for constipation 1 capful= 17 g Historical Provider, Renardotassium chloride 20 MEQ TBCR Take 1 tablet (20 mEq total) by mouth daily10/03/20 11/02/20 Brenda Mcgraw MDtorsemide (DEMADEX) 100 MG tablet Take 1 tablet (100 mg total) by mouth daily09/28/20 10/28/20 Brenda Mcgraw MDwarfarin (COUMADIN) 5 MG tablet Take 5 mg by mouth daily Historical Provider,Yaniraspirin EC 81 MG EC tablet Take 81 mg by mouth daily 10/04/20 HistoricalProvider, STACYyanocobalamin (B-12 PO) Take 500 mg by mouth daily 10/04/20 HistoricalProviderMDferrous gluconate (FERGON) 324 MG tablet Take 324 mg by mouth daily withbreakfast 10/04/20 Historical Provider, MDSocial HistorySocioeconomic History Marital status: Spouse name: Not on file Number of children: 1 Years of education: Not on file Highest education level: Not on fileOccupational History 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: 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 Use Smoking status: Former Smoker Packs/day: 3.00 Years: 40.00 Pack years: 120.00 Types: Cigarettes Quit date: 1994 Years since quittin.5 Smokeless tobacco: Never UsedVaping Use Vaping Use: Never usedSubstance and Sexual Activity Alcohol use: Not Currently Drug use: Never Sexual activity: Not on fileOther Topics Concern Not on fileSocial History Narrative Not on fileSocial Determinants of HealthFinancial Resource Strain: Difficulty of Paying Living Expenses:Food Insecurity: Worried About Running Out of Food in the Last Year: Ran Out of Food in the Last Year:Transportation Needs: Lack of Transportation (Medical): Lack of Transportation (Non-Medical):Physical Activity: Days of Exercise per Week: Minutes of Exercise per Session:Stress: Feeling of Stress :Social Connections: Frequency of Communication with Friends and Family: Frequency of Social Gatherings with Friends and Family: Attends Sabianism Services: Active Member of Clubs or Organizations: Attends Club or Organization Meetings: Marital Status:Intimate Partner Violence: Fear of Current or Ex-Partner: Emotionally Abused: Physically Abused: Sexually Abused:Family HistoryProblem Relation Age of Onset Heart failure Mother Diabetes Father Malig Hyperthermia Neg HxREVIEW OF SYSTEMS:Constitution: Weight stable, Denies fever or chills. Caffeine intake: 2cups/day.HEENT: He wears glasses for reading. Denies any blurred vision, double vision,dizziness, tinnitus, dysphagia or headaches.Respiratory: Positive shortness of breath on exertion. Denies cough, yellowsputum production or wheezing.Cardiovascular: Denies any chest pain, pressure or tightness. Denies anyproximal nocturnal dyspnea or orthopnea.Muscle/Skeletal System: Denies any muscle ache, joint ache or weakness.Neurologic: Denies any numbness, tingling, tremors or syncope.GI: Denies any nausea, vomiting, diarrhea, constipation or melena.: Denies any dysuria, hematuria or nocturia.Endocrine: Denies polyuria, polydipsia or polyphagia. Denies any heat or coldintolerance, fatigue or night sweats.Hematology: Denies any bleeding or bruising tendencies.DNR Status: Full Code per the patient.HCP: No per patient.PHYSICAL EXAM:General: He is a 84 years old, pleasant whtie male, in no acute distress at timeof examination. Vitals on arrival to the office are BP 114/60 (BP Location:Right upper arm, Patient Position: Sitting) | Pulse 72 | Ht 1.6 m (5' 3") |Wt 75.1 kg (165 lb 9.6 oz) | SpO2 97% | BMI 29.33 kg/m Body mass index is29.33 kg/m ..Skin is pink warm and dry.HEENT: He is normocephalic, atraumatic. Sunray conjunctivae. Anicteric sclerae.Pupils are equal, round, reactive to light and accommodation. Extraocularmovements are intact. Ears: Without drainage or lesion. Mouth: Dentition is inpoor repair with multiple missing. He has a grade II airway. Neck is supplemidline without cervical adenopathy. There is no tonsillo pharyngeal congestion.Mucous membranes are moist. There are no oral lesions. No jugular distention. Nocarotid bruit.CHEST/BREAST: A/P less than transverse. Breast exam declined.LUNGS: Clear to auscultation. No wheezes, rhonchi or crackles.HEART: Rate rhythm regular. S1, S2. Grade 3/6 systolic murmur radiating to neck.NO rub or gallop.ABDOMEN: Bowel sounds positive times four. Soft, non tender. No reboundtenderness. No hepatosplenomegaly. Negative CVAT.GENITAL/RECTAL: Deferred.MUSCLE/SKELETAL: Strength is 5/5. Relay Operator are equal.NEUROLOGICALLY: Cranial nerves II through XII are grossly intact.VASCULAR: Pulses are positive. Trace edema.Anesthesia complications: DeniesSteroid use: He denies any oral steroid therapy for three weeks or greaterwithin the last 3 months.[facility] Frailty Scale :: 6/10 Moderately Frail (need help with all outsideactivities and with keeping house. Inside, they often have problems with stairsand need help with bathing and might need minimal assistance (cuing, standby)with dressing).Stop Bang Questionnaire - Total Score:STOP-Bang Total Score: 4IMPRESSION and PLAN:Primary Diagnosis: Nonrheumatic aortic valve stenosis surgery as per .Secondary Diagnosis and Plan:1. CAD EKG obtained in Pre-Admission testing or external EKG within 6 months,Continuation of cardiac medications post-operatively based on clinical status2. Hypertension Continuation of prior to admission anti- hypertensivemedications unless precluded by clinical status.3. Congestive heart failure unspecified Monitor daily fluid status (Input/ Output totals) Adjust IV fluid rates based on fluid status PRN diuretics tooptimize fluid status Continuation of home oral diuretics when clinicallyappropriate4. COPD Monitor oxygen saturation Albuterol nebulizer as needed Continue homemedications when clinically appropriate5. GI prophylaxis Per surgeon6. DVT prophylaxis Early ambulation. Pneumatic compression device.Subcutaneous Heparin or LMW Heparin if clinically indicated7. Frail8. Advanced ageBased on above medical co morbidities, length of stay may be prolonged greaterthan previously anticipated.ALLERGIES:Fish-derived products10/04/2020 8:52 Getachew Frias document or parts of this document, were dictated using Epoque speaking software. A reasonable attempt at proofreading has beenmade to minimize errors. Please call with any questions or corrections. Name Value Range Interpretation Code Description Data Debbie e(s) Supporting Document(s) ID Date Data Source [id number] 10/05/2020 10:09:21 AM EDT [facility] Name Value Range Interpretation Code Description Data [facility] Supporting Document(s) SPECIMEN DESCRIPTION [facility] STAPH SCREEN RESULTS (ONEGSA) [facility] COMMENT [facility] GENE TO DETECT STAPH AUREUS. (2) RT-P CR WAS PERFORMED FOR THE mecA AND SCCmec GENES TO DETECT METHICILLIN RESISTANCE IN STAPH AUREUS. ID Date Data Source [id number] 10/04/2020 05:57:27 PM EDT [facility] SPEC EXP DATE 10/10/2020ATI ENT ABO/Rh A POSITIVEANTIBODY SCREEN NEGATIVETESTING SITE PERFORMED AT [address] [place] [address] Name Value Range Interpretation Code Description Data Debbie rce(s) Supporting Document(s) TYPE AND SCREEN [facility] PATIENT ABO/Rh A POSITIVE ID Date Data Source [id number] 10/04/2020 04:30:49 PM EDT [facility] Name Value Range Interpretation Code Description Data Debbie rce(s) Supporting Document(s) ROOM TEMP AB SCREEN [facility] ROOM TEMP AB SCREEN NEGATIVE ID Date Data Source [id number] 10/04/2020 12:53:48 PM EDT [facility] Name Value Range Interpretation Code Description Data Debbie rce(s) Supporting Document(s) HEMOGLOBIN A1C @ 5.5 % (4.0-6.0) [facility] Performed using Siemens Frierson immunoassa y.Care must be taken when interpreting [id number] in patients with a hemoglobin variantor decreased erythrocyte lifespan. Values 5.7 - 6.4% suggest prediabetes.Values >=6.5% are diagnostic for diabetes.REFERENCE: DIABETES CARE 2018: 41(S13-S27). EST AVERAGE GLUCOSE 111 mg/dL [facility] ID Date Data Source [id number] 10/04/2020 12:34:49 PM EDT [facility] Name Value Range Interpretation Code Description Data Debbie rce(s) Supporting Document(s) SODIUM 141 mmol/L (136-145) [facility] POTASSIUM 3.6 mmol/L (3.6-5.2) [facility] CHLORIDE 106 mmol/L (100-108) [facility] CO2 29 mmol/L (22-31) [facility] ANION GAP 6 mmol/L (7-16) L [facility] UREA NITROGEN 26 mg/dL (7-24) H [facility] CREATININE 1.38 mg/dL (0.80-1.30) H [facility] BUN/CREAT RATIO 18.8 RATIO (10.0-20.0) [facility] GLUCOSE 102 mg/dL (70-99) H [facility] CALCIUM 9.2 mg/dL (8.4-10.2) [facility] TOTAL PROTEIN 7.6 g/dL (6.4-8.2) [facility] ALBUMIN 3.9 g/dL (3.2-4.5) [facility] GLOBULIN 3.7 g/dL (2.7-4.3) [facility] ALB/GLOB RATIO 1.1 RATIO [facility] ALKALINE PHOSPHATASE 117 U/L (45-117) [facility] BILIRUBIN,TOTAL 0.9 mg/dL (0.0-1.0) [facility] PLEASE NOTE:Total bilirubin results may be falselyelevated in patients taking Eltrombopag. AST (SGOT) 15 U/L (11-39) [facility] ALT (SGPT) 16 U/L (12-78) [facility] GFR 49 ml/min/1.73m2 (>59) L [facility] GFR ( AMER) 60 ml/min/1.73m2 (>59) [facility] GFR INTERPRETATION [facility] --NORMAL KIDNEY FUNCTION OR MILD DISEASE - GFR >OR= 60CHRONIC KIDNEY DISEASE - GFR 15 - 59RENAL FAILURE - GFR <15 Est. GFR calculation based on the MDRDstudy equation, which assumes a steadystate for creatinine. Est. GFR should notbe used for medication dosing. ID Date Data Source [id number] 10/04/2020 12:34:49 PM EDT [facility] Name Value Range Interpretation Code Description Data Debbie rce(s) Supporting Document(s) NT PRO BNP 2159 pg/mL (0-450) H [facility] ID Date Data Source [id number] 10/04/2020 12:07:43 PM EDT [facility] Name Value Range Interpretation Code Description Data Debbie rce(s) Supporting Document(s) APTT 33.4 s (22.0-34.3) [facility] ID Date Data Source [id number] 10/04/2020 12:07:43 PM EDT [facility] Name Value Range Interpretation Code Description Data Debbie rce(s) Supporting Document(s) PT 25.1 s (9.2-11.9) H [facility] INR 2.54 [facility] SUGGESTED THERAPEUTIC RANGES USING INR F ORSTABILIZED ANTICOAGULATED PATIENTS:STANDARD DOSE THERAPY INR 2.0-3.0 DVT, PE, PREVENT DVT OR EMBOLISMHIGH DOSE THERAPY INR 2.5-3.5 PREVENT EMBOLISM FROM MECHANICAL HEART VALVE ID Date Data Source [id number] 10/04/2020 11:49:57 AM EDT [facility] Name Value Range Interpretation Code Description Data Debbie rce(s) Supporting Document(s) WBC 7.2 10*3/uL (4.1-11.0) [facility] RBC 4.47 10*6/uL (4.60-6.10) L [facility] HGB 12.9 g/dL (13.5-18.0) L [facility] HCT 38.9 % (41.0-53.0) L [facility] MCV 87.0 fL (80.0-95.0) [facility] MCH 28.9 pg (27.0-32.0) [facility] MCHC 33.2 g/dL (32.0-36.0) [facility] RDW 15.4 % (10.5-14.5) H [facility] PLT 261 10*3/uL (150-450) [facility] MPV 9.7 fL (7.1-10.7) [facility] NEUT % 71.9 % (35.0-75.0) [facility] LYMPH % 12.4 % (16.0-52.0) L [facility] MONO % 10.7 % (0.0-8.0) H [facility] EOS % 3.1 % (0.0-5.0) [facility] BASO % 1.9 % (0.0-4.0) [facility] NEUT # 5.2 10*3/uL (1.8-7.7) [facility] LYMPH # 0.9 10*3/uL (1.2-4.8) L [facility] MONO # 0.8 10*3/uL (0.0-0.8) [facility] Eosinophils [#/volume] in Blood by Automated count 0.2 10*3/uL (0.0-0 .5) [facility] BASO # 0.1 10*3/uL (0.0-0.2) [facility] ID Date Data Source [id number] 10/05/2020 07:17:40 AM EDT [facility] SPECIMEN DESCRIPTION MIDSTREAM UR INE,CLEAN CATCHCULTURE RESULTS MIXED UROGENITAL BLESSING; PLEASE SUBMIT A NEW SPEC IMEN IF CLINICALLY INDICATED.REPORT STATUS FINAL 10/05/2020 Name Value Range Interpretation Code Description Data Debbie rce(s) Supporting Document(s) ID Date Data Source [id number] 10/04/2020 10:19:48 AM EDT [facility] Name Value Range Interpretation Code Description Data Debbie rce(s) Supporting Document(s) COLOR [facility] APPEARANCE [facility] SPEC GRAV URINE 1.010 (1.003-1.030) [facility] PH URINE 5.5 (5.0-7.5) [facility] LEUK ESTERASE (NEG) A [facility] NITRITE URINE (NEG) [facility] PROTEIN URINE (NEG) [facility] GLUCOSE URINE (NEG) [facility] KETONE URINE (NEG) [facility] UROBILINOGEN 0.2 mg/dL (0-1.0) [facility] BILIRUBIN URINE (NEG) [facility] BLOOD/HGB URINE (NEG) [facility] EPITHELIAL CELLS (NEG) [facility] HYALINE CASTS 0.3 [LPF] (0-5) [facility] BACTERIA (NEG) [facility] URINE WBC 5.8 [HPF] (0-8) [facility] URINE RBC 1.0 [HPF] (0-3) [facility] ID Date Data Source [id number] 09/06/2020 02:42:53 PM EDT [facility]PATIE NT INFORMATIONPatient MRN Name Date of Age Gend*PT [id number] Kendra Muro 1935 84 years M OPPT Location Admission Date/Time Visit ID Attending Provider 09/06/20 1131 --- --- EPI ID CSN Admitting Provider [id number] ---Cardiovascular and Thoracic Surgery HISTORY & PHYSICAL09/06/2020hief Compliant / Reason for consultation:Kendra Muro is a 84 years old gentleman presenting with symptomatic severeValvular Aortic Stenosis. He complains of fatigue and shortness of breath. Nochest pain/pressure, passing out, or ankle swelling. He has had PCI to RCA andCircumflex.Past Medical History:Diagnosis Date Aortic stenosis Asthma Garza's esophagus Cataract cortical, senile CHF (congestive heart failure) COPD (chronic obstructive pulmonary disease) Coronary artery disease GERD (gastroesophageal reflux disease) Hypertension Ischemic cardiomyopathy Murmur, cardiac PVD (peripheral vascular disease)Past Surgical History:Procedure Laterality Date CARDIAC CATHETERIZATION CARDIAC CATHETERIZATION N/A 07/20/2020 Procedure: Right heart cath; Surgeon: Renetta Guzman MD; Laterality: N/A; CARDIAC CATHETERIZATION N/A 07/20/2020 Procedure: Left heart cath; Surgeon: Renetta Guzman MD; Laterality: N/A; CARDIAC CATHETERIZATION N/A 07/21/2020 Procedure: Cardiac catheterization; Surgeon: Renetta Guzman MD; Laterality:N/A; CARDIAC CATHETERIZATION N/A 08/02/2020 Procedure: Right heart cath; Surgeon: Renetta Guzman MD; Laterality: N/A; CARDIAC CATHETERIZATION N/A 08/02/2020 Procedure: Left heart cath; Surgeon: Renetta Guzman MD; Laterality: N/A; CARDIAC CATHETERIZATION N/A 08/02/2020 Procedure: Coronary angiography; Surgeon: Renetta Guzman MD; Laterality:N/A; CARDIAC CATHETERIZATION N/A 08/02/2020 Procedure: Percutaneous coronary intervention; Surgeon: Renetta Guzman MD;Laterality: N/A; COLONOSCOPY JOINT REPLACEMENTFamily HistoryProblem Relation Age of Onset Heart failure Mother Diabetes FatherSocial History:Social HistorySocioeconomic History Marital status: Spouse name: Not on file Number of children: 1 Years of education: Not on file Highest education level: Not on fileOccupational History 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: 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 Use Smoking status: Former Smoker Years: 40.00 Quit date: 1994 Years since quittin.4 Smokeless tobacco: Never UsedVaping Use Vaping Use: Never usedSubstance and Sexual Activity Alcohol use: Not Currently Drug use: Never Sexual activity: Not on fileOther Topics Concern Not on fileSocial History Narrative Not on fileSocial Determinants of HealthFinancial Resource Strain: Difficulty of Paying Living Expenses:Food Insecurity: Worried About Running Out of Food in the Last Year: Ran Out of Food in the Last Year:Transportation Needs: Lack of Transportation (Medical): Lack of Transportation (Non-Medical):Physical Activity: Days of Exercise per Week: Minutes of Exercise per Session:Stress: Feeling of Stress :Social Connections: Frequency of Communication with Friends and Family: Frequency of Social Gatherings with Friends and Family: Attends Sabianism Services: Active Member of Clubs or Organizations: Attends Club or Organization Meetings: Marital Status:Intimate Partner Violence: Fear of Current or Ex-Partner: Emotionally Abused: Physically Abused: Sexually Abused:Allergies:Fish-derived productsMedications:Current Outpatient Medications: acetaminophen (TYLENOL) 325 MG tablet, Take 650 mg by mouth every 6 (s ix)hours as needed for pain, Disp: , Rfl: albuterol (PROVENTIL HFA;VENTOLIN HFA) 108 (90 Base) MCG/ACT inhaler, Inhale2 puffs every 4 (four) hours as needed for wheezing, Disp: , Rfl: amLODIPine (NORVASC) 5 MG tablet, Take 5 mg by mouth daily, Disp: , Rfl: atenolol (TENORMIN) 50 MG tablet, Take 0.5 tablets (25 mg total) by mouthdaily, Disp: , Rfl: atorvastatin (LIPITOR) 40 MG tablet, Take 40 mg by mouth daily, Disp: , Rfl: brimonidine (ALPHAGAN) 0.2 % ophthalmic solution, Administer 1 drop to botheyes 2 (two) times a day, Disp: , Rfl: clopidogrel (PLAVIX) 75 MG tablet, Take 1 tablet (75 mg total) by mouth dailyPlease take 4 pills the night before the procedure, Disp: 30 tablet, Rfl: 11 fluticasone-salmeterol (ADVAIR) 250-50 MCG/DOSE DISKUS, Inhale 1 puff 2 (two)times a day , Disp: , Rfl: furosemide (LASIX) 20 MG tablet, Take 2 tablets (40 mg total) by mouth 2(two) times a day, Disp: 60 tablet, Rfl: 5 latanoprost (XALATAN) 0.005 % ophthalmic solution, 1 drop nightly, Disp: ,Rfl: levothyroxine (SYNTHROID, LEVOTHROID) 75 MCG tablet, Take 75 mcg by mouthdaily, Disp: , Rfl: losartan (COZAAR) 100 MG tablet, Take 0.5 tablets (50 mg total) by mouthdaily, Disp: 30 tablet, Rfl: 0 nitroglycerin (NITROSTAT) 0.4 MG SL tablet, Place 0.4 mg under the tongueevery 5 (five) minutes as needed for chest pain Pt reports taking 1 pill SLtoday bc he was anxious. Could not report if the pill had any effect, Disp: ,Rfl: Omeprazole 20 MG TBDD, Take 20 mg by mouth, Disp: , Rfl: warfarin (COUMADIN) 5 MG tablet, Take 5 mg by mouth daily, Disp: , Rfl:Review of SystemsReview of Systems - History obtained from the patientGeneral ROS: positive for - fatigueRespiratory ROS: positive for - shortness of breathCardiovascular ROS: positive for - dyspnea on exertionObjective:Physicial Exam:There were no vitals filed for this visit.Cardio: Normal rate/rhythm; systolic murmur 3+Respiratory: Breath sounds equal bilaterallyGI: Abdo Soft, non tender, obeseSkin: No rashes or lesionsEyes: PERLE, EOM intactMSK: No joint deformity/swellingNeuro: Grossly NormalPsych: Alert/oriented, Normal affectPREVIOUS WEIGHTS:Wt Readings from Last 10 Encounters:08/10/20 81.6 kg (180 lb)08/09/20 79.4 kg (175 lb)08/02/20 79.4 kg (175 lb 0.7 oz)07/25/20 80.7 kg (178 lb)07/21/20 77 kg (169 lb 12.8 oz)06/22/20 83.9 kg (185 lb)Lab ResultsComponent Value Date WBC 10.60 08/07/2020 HGB 13.6 08/07/2020 HCT 39.70 (A) 08/07/2020 MCV 90.00 07/25/2020 PLT 249 08/07/2020ab ResultsComponent Value Date NA 142 08/07/2020 K 3.3 (A) 08/07/2020 CL 104.0 07/25/2020 CO2 27 07/21/2020ab ResultsComponent Value Date BUN 19 08/07/2020ab ResultsComponent Value Date CREATININE 1.20 08/07/2020IOBRIEFNo intake or output data in the 24 hours ending 09/06/20 1436RADIOLOGY RESULTS:LATEST RADIOLOGY RESULTS:Echo Transthoracic (TTE)Result Date: 08/09/2020The study is of acceptable technical quality. Underlying sinus rhythm. NormalLV size with mild LVH. Extensive inferior and inferolateral wall motionabnormalities as outlined above with overall estimated LVEF 30 to 35%. Grade 2diastolic dysfunction. Likely severe calcific aortic stenosis (mean [id number], JEWEL 1.0 cm , dimensionless index 0.22). Trace mitral insufficiency. Unableto estimate central venous pressure and pulmonary artery pressure. Severe leftatrial enlargement.Cardiac catheterizationDetailsReading Physician Reading Date Result Luke Guzman [phone] 08/02/2020 RoutineNarrative & [id number] man with coronary disease post bare-metal stent to the leftcircumflex and aortic stenosis and mitral insufficiency who has cardiomyopathywith moderate to severe left ventricular systolic dysfunction and renalinsufficiency and is on chronic anticoagulation for remote vascular injury usingCoumadin.1. Severe proximal right coronary artery stenosis with calcifications postsuccessful drug-eluting stent placement. Otherwise stable coronary arterydisease with patent stent in the left circumflex and only moderate disease inthe high diagonal.2. Aortic stenosis with a mean gradient of 25 and an estimated area of 0.74.This could be low-flow low gradient aortic stenosis with his systolic functionbeing at 30%. Prior to deciding on proceeding any further a CT calcium score ofthe aortic valve will be obtained today.3. Moderate pulmonary hypertension with high filling pressures both right andleft-sided.4. High V wave on the wedge pressure suggestive of significant mitralinsufficiency. The most recent echo done at the hospital was reviewed today andshowed only mild to moderate mitral insufficiency. Further echo control wouldbe recommended now as his heart failure is better and the quality of picturesmay be improved.5. Right radial and antecubital venous access. Because the patient is on chronic Coumadin therapy he will be on Plavix for ayear along with Coumadin. During the first 30 days he will be on low- doseaspirin. A CT scan calcium score of the aortic valve will be obtained today Panda would recommend an echocardiogram control of both aortic and mitral valve asan outpatient prior to deciding on proceeding any further with his valvulardisease therapy. He should continue his Lasix which may need to be increased inthe near future if his kidney function remains stable.CT Calcium Score OnlyDetailsReading Physician Reading Date Result DomingoLamarc kline [phone] 08/03/2020 Pending DischargeNarrative & Impression [place], [place] [address]Patient Name: KENDRA MURODOB: 1935Sex: Chris Provider: BELINDA Salcedo Prov: BELINDA Galvez Provider:Procedure Performed: CT CALCIUM SCORE ONLYExam Date: 08/02/2020 14:14MRN: [id number] Number: [id number] Class: OutpatientAccount #: [id number] .Comparison: None Reason for Exam: aortic stenosis, calcium score of aortic valve Technique: Gated low dose calcium scoring was performed of the aortic valve a ndcoronary arteries using the [address] scanner... Comparison: None FINDINGS: Coronary calcium score:Left Main: 1478Right coronary artery: 2213LAD: 703Circumflex: 2733Posterior descending: Not measuredTotal calcium score: 7127 Aortic valve calcification: 2967 Ancillary findings: The heart is normal size. Mild scarring present in bothlungs Calcium score impression: 1. Severe coronary artery calcification indicating extensive atheroscleroticplaque. High likelihood of significant coronary narrowing.2. Marked aortic valvular calcification. Report electronically signed by: KENDRA MCCONNELL On 08/03/2020 8:20 AMWorkstation ID: [id number] - [id number] / Impression / Plan:eKndra Muro presents with severe symptomatic Valvular Aortic Stenosis. NYHAClass III. I've gone over this diagnosis with him. We've discussed treatmentoptions including surgical Aortic Valve Replacement and Transcatheter AorticValve Replacement (TAVR).We've gone over TAVR procedure, including risks of bleeding, infection, stroke,kidney failure, lung complications including pneumonia and prolonged supportwith breathing machine, possibility of needing a pacemaker and possibility ofdying. He understands this and would like to go ahead with TAVR procedure. Thiscase will be reviewed at the TAVR/Structural Heart Conference.This medical record reflects the history of present illness as obt ained byangelaf in discussion with the patient.Alonso Martinez MD [facility] F[facility]SCardi[facility] Thor[facility] Surgery09/06/2020, 2:42 PM Name Value Range Interpretation Code Description Data Debbie rce(s) Supporting Document(s) ID Date Data Source [id number] 09/06/2020 02:09:00 PM EDT [facility]: ULTR ASOUND CAROTID DUPLEXCLINICAL HISTORY: Pre TAVR.COMPARISON: None available.TECHNIQUE: Bilateral color carotid duplex ultrasound performed. Technologist indicates limitations because of patient's shortness of breath, heavy breathing and position for scanning in a seated reclined position.FINDINGS: RIGHT:CCA PS: 43 cm/secICA PS: 73 cm/secICA ED: 19 cm/secECA PS: 100 cm/secVertebral: 41 cm/sec, antegradeRatio: ICA/CCA: 1.7ICA Stenosis: Less than 50%Comments: Mild to moderate plaque, some calcified, extending from the right common carotid bulb into the proximal internal and external carotid arteries.LEFT:CCA PS: 52 cm/secICA PS: 106 cm/secICA ED: 30 cm/secECA PS: 62 cm/secVertebral: 36 cm/sec, antegradeRatio: ICA/CCA: 2.0ICA Stenosis: Less than 50%Comments: Plaque, some calcified, identified in the left common carotid bulb extending into the proximal internal and external carotid arteries.IMPRESSION: Less than 50% stenosis bilaterally. Calcified plaque identified bilaterally within the common carotid artery bifurcations and proximal internal carotid arteries.Carotid stenosis measurements were performed using the NASCET method.Dictated by: NILE BEJARANO M.D. on 09/06/2020lectronically Signed by: NILE BEJARANO M.D. on 09/06/2020 09:14 PMTranscribed by: suleiman on 09/06/2020 09:14 PMCDS G code: ,CDS Modifier: ,cc: Name Value Range Interpretation Code Description Data Debbie rce(s) Supporting Document(s) ID Date Data Source [id number] 09/06/2020 01:21:00 PM EDT [facility] A NGIO CHEST ABDOMEN PELVIS TAVRCLINICAL HISTORY: TAVR study. Av replace, percutaneous planning, valve plane.COMPARISON: 08/02/2020 CT scan. 05/12/2018 CT scan.TECHNIQUE: CTA chest abdomen and pelvis performed. Coronal, parasagittal and 3-dimensional reconstructions or MIPS were provided (or created on the workstation) and reviewed.Patient injected intravenously with 115 cc of Isovue 370 from a bottle of 125 cc. There is 10 cc of wasted intravenous contrast.FINDINGS: CTA chest: Larger lymph nodes are seen in the mediastinum including the 4R zone, zone 6 subcarinal zone 7. No axillary adenopathy.Thyroid gland shows heterogeneity with no discrete nodule. The esophagus appears normal.Significant calcification again identified in the aortic valve and in the coronary arteries. Ascending thoracic aorta shows normal caliber. Aortic arch shows normal branching pattern. No significant stenosis of the great vessel origins. Mild stenosis of the right subclavian artery as a passes posteriorly axial image [id number].Aortic root: 3.1 cm.Ascending thoracic aorta: 3.9 cm.Aortic arch: 2.8 cm.Descending thoracic aorta: 2.9 cm.Main pulmonary artery shows normal size, similar to the ascending thoracic aorta. The right pulmonary artery is somewhat enlarged as is the left pulmonary artery.There is diffuse lung disease suggesting chronic interstitial disease. There is a tiny right pleural effusion. There is stable scarring in the posterior right lung base. There is no endobronchial mass.Exaggerated kyphosis identified in the thoracic spine with multiple compression fractures. Mild new compression fracture superior endplate of T11. New compression fracture T5. Old compression fractures T4, T6, T7. There are healed bilateral rib fractures. I do not seen acute rib fracture.CTA abdomen and pelvis:Abdominal aorta shows diffuse atherosclerotic calcification. There is no aneurysm. The calcification extends into the iliac vasculature and femoral vasculature. No significant stenosis at the celiac artery origin, superior mesenteric artery origin or DAYAMI origin. There is atherosclerotic calcification with suspected high-grade stenosis at the origins of both renal arteries. There is symmetric cortical thinning. There is a benign cyst lower pole left kidney.Right left common iliac artery is widely patent. External iliac arteries and internal iliac arteries a re patent with atherosclerotic calcification. 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 Liver shows decreased density compared to the spleen. Adrenal glands, gallbladder, pancreas, appear normal. There is no adenopathy. Colon and small bowel are not dilated. A few diverticula are seen in the colon. No wall thickening or pericolonic inflammation. The appendix and terminal ileum look normal.CT pelvis: Urinary bladder is distended and shows wall thickening and trabeculation. There is a nonobstructing stone right posterior margin urinary bladder axial image 389. Prostate gland bulges into the base urinary bladder. Prostate gland demonstrates calcifications. Seminal vesicles look normal.Small inguinal hernias contain fat bilaterally. No evidence for incarceration. No inguinal adenopathy.Skeletal structures: Degenerative changes seen L4-L5 L5-S1. Probable stenosis L4-L5. Acute fracture not identified.IMPRESSION: Calcification aortic valve consistent with aortic stenosis.Diffuse atherosclerosis. No aneurysm identified of the thoracic aorta.Increased size lymph nodes in the mediastinum could be a sign of mild adenopathy. No adenopathy in the axilla. Diffuse interstitial lung disease might be the etiology for the adenopathy.Normal caliber abdominal aorta and iliac vasculature. 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 Prostate gland size mildly enlarged with calcification.Bilateral hydroceles in the scrotum.Degenerative changes in the spine. 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 No acute fracture identified in the lumbar spine.Dictated by: NILE BEJARANO M.D. on 09/06/2020lectronically Signed by: NILE BEJARANO M.D. on 09/06/2020 04:14 PMTranscribed by: suleiman on 09/06/2020 04:14 PMCDS G code: , , ,CDS Modifier: , , ,cc: Name Value Range Interpretation Code Description Data Debbie rce(s) Supporting Document(s) ID Date Data Source [id number] 09/05/2020 08:13:00 AM EDT [facility] ([facility]) Name Value Range Interpretation Code Description Data Debbie rce(s) Supporting Document(s) INR in Platelet poor plasma by Coagulation assay 3.4 [facility] ([facility]) ID Date Data Source [id number] 09/05/2020 08:05:00 AM EDT [facility] ([facility]) Name Value Range Interpretation Code Description Data Debbie rce(s) Supporting Document(s) Magnesium 1.6 mg/dL 1.8-2.4 [facility] ID Date Data Source [id number] 09/05/2020 08:05:00 AM EDT [facility] ([facility]) Name Value Range Interpretation Code Description Data Debbie rce(s) Supporting Document(s) Urea nitrogen [Mass/volume] in Serum or Plasma 26 mg/dL 7-18 [facility] ([facility]) Creatinine 1.3 mg/dL 0.6-1.3 [facility] Glucose [Mass/volume] in Serum or Plasma 108 mg/dL 74-99 [facility] ([facility]) 100-125 mg/dL PRE-DIABETES/FASTING >126 mg/dL DIABETES/FASTING Potassium [Moles/volume] in Serum or Plasma 3.4 meq/L 3.5-5.1 [facility] ([facility]) Sodium [Moles/volume] in Serum or Plasma 144 meq/L 136-145 [facility] ([facility]) Chloride [Moles/volume] in Serum or Plasma 105 meq/L 98-107 [facility] ([facility]) Glomerular filtration rate/1.73 sq M pre dicted among non-blacks [Volume Rate/Area] in Serum or Plasma by Creatinine-based formula (MDRD) 53 mL/min [facility] ([facility]) Carbon dioxide, total [Moles/volume] in Serum or Plasma 26 meq/L 21 -32 [facility] ([facility]) Calcium [Mass/volume] in Serum or Plasma 9.5 mg/dL 8.5-10.1 [facility] Glomerular filtration rate/1.73 sq M pre dicted among blacks [Volume Rate/Area] in Serum or Plasma by Creatinine-based formula (MDRD) Laboratory test result [facility] ([facility]) <content>CHRONIC KIDNEY DISEASE STAGING PER NKF</content>
<content></content>
<content>STAGE I & II GFR >= 60 NORMAL TO MILDLY DECREASED</content>
<content>STAGE III GFR 30-59 MODERATELY DECREASED</content>
<content>STAGE IV GFR 15-29 SEVERELY DECREASED</content>
<content>STAGE V GFR <15 VERY LITTLE GFR LEFT</content>
<content>ESRD GFR <15 ON LEAD SUPPLY WORKER</content>
<content></content> ID Date Data Source [id number] 09/05/2020 08:05:00 AM EDT [facility] ([facility]) Name Value Range Interpretation Code Description Data Debbie rce(s) Supporting Document(s) Erythrocytes [#/volume] in Blood by Automated count 4.48 x10*6/UL 4.2 0-6.30 [facility] Hemoglobin [Mass/volume] in Blood 12.9 g/dL 12.0-18.0 [facility] Leukocytes [#/volume] in Blood by Automated count 12.1 x10*3/UL 4.1-1 0.9 [facility] ([facility]) NOTE: RESULT VERIFIED. MCH 28.8 pg 26.0-32.0 [facility]) Hematocrit [Volume Fraction] of Blood by Automated count 38.3 % 3 7.0-51.0 [facility] ([facility]) MCV 85.3 fL 80.0-97.0 [facility] ([facility]) Platelets [#/volume] in Blood by Automated count 338 x10*3/UL 140-440 [facility] ([facility]) Erythrocyte distribution width [Ratio] by Automated count 13.7 % 11.6-13.7 [facility] ([facility]) MCHC 33.8 g/dL 31.0-38.0 [facility] Mid % 3.7 % 1.7-9.3 [facility] ([facility]) Lymph % 10.7 % 10.0-58.5 [facility] ([facility]) MPV 9.0 FL 7.8-11.0 [facility] ([facility]) Lymph # 1.3 x10*3/UL 0.6-4.1 [facility] ([facility]) Neut % 85.6 % 37.0-92.0 [facility] ([facility]) Mid # 0.4 x10*3/UL 0.1-0.6 [facility] ([facility]) Neut # 10.4 x10*3/UL 2.0-7.8 [facility] ([facility]) ID Date Data Source [id number] 09/04/2020 12:57:00 PM EDT [facility]) Name Value Range Interpretation Code Description Data Debbie rce(s) Supporting Document(s) Bacteria identified in Urine by Culture Laboratory test result [facility] ([facility]) Rx Cephalex ID Date Data Source [id number] 08/28/2020 08:22:00 AM EDT [facility] Name Value Range Interpretation Code Description Data Debbie rce(s) Supporting Document(s) INR in Platelet poor plasma by Coagulation assay 3.7 [facility] ID Date Data Source [id number] 08/23/2020 12:12:00 PM EDT [facility] ([facility]) Name Value Range Interpretation Code Description Data Debbie rce(s) Supporting Document(s) Bacteria identified in Urine by Culture Laboratory test result [facility] ([facility]) <content>FULL REPORT IN LAB NOTES ([facility] a nd [facility]).</content>
<content></content>
<content>ORGANISM 1: ESCHERICHIA COLI</content>
<content></content>
<content>COLONY COUNT > 100,000</content>
<content></content>
<content></content>
<content>O RGANISM 1: ESCHERICHIA COLI</content>
<content></content>
<content> ESCHERICHIA COLI: REACTION</content>
<content>TRIMETHOPRIM/SULFAMETHOXAZOLE IV 160mg TMP & 800mg SMXq6h <=20 S</content>
<content> TRIMETHOPRIM/SULFAMETHOXAZOLE PO Bactrim DS Bid <=20 S</content>
<content>AMPICILLIN IV 500mg q6h <=2 S</content>
<content>AMPICILLIN PO 500mg q6h fasting <=2 S</content>
<content>GENTAMICIN IV 80mg q8h <=1 S</content>
<content>NITROFURANTOIN PO 100mg BID <=16 S</content>
<content>CEFAZOLIN IV 1gm q8h <=4 S</content>
<content>LEVOFLOXACIN IV 500mg qd <=0.12 S</content>
<content>LEVOFLOXACIN PO 250mg qd <=0.12 S</content>
<content>LEVOFLOXACIN PO 500mg qd <=0.12 S</content>
<content>TOBRAMYCIN IV 80mg q8h <=1 S</content>
<content> CEFTRIAXONE IV 1gm q24h <=1 S</content>
<content>CEFTAZIDIME IV 1gm q8h <=1 S</content>
<content>AMPICILLIN/SULBACTAM IV 1.5g q6h <=2 S</content>
<content>PIPERACILLIN/TAZOBACTAM IV 2.25 gm q6h <=4 S</content>
<content>AZTREONAM IV 1gm q8h <=1 S</content>
<content>ERTAPENEM IV 1gm qd <=0.5 S</content>
<content> MEROPENEM IV 1 gm q8h <=0.25 S</content>
<content>MEROPENEM IV 500 mg q8h <=0.25 S</content>
<content>TIGECYCLINE IV 50mg q12h <=0.5 S</content>
<content>CEFEPIME IV 1 gm q12h <=1 S</content>
<content>CEFEPIME IV 2 gm q12h <=1 S</content>
<content>EXTD BRD SPCTRM BETA LACTAMASE IV NEGATIVE FOR ESBL</content>
<content></content> ID Date Data Source [id number] 08/22/2020 08:44:00 AM EDT [facility]) Name Value Range Interpretation Code Description Data Debbie rce(s) Supporting Document(s) INR in Platelet poor plasma by Coagulation assay 4.1 [facility] ([facility]) ID Date Data Source [id number] 08/14/2020 10:55:00 AM EDT [facility] ([facility]) Name Value Range Interpretation Code Description Data Debbie rce(s) Supporting Document(s) INR in Platelet poor plasma by Coagulation assay 3.9 [facility] ([facility]) ID Date Data Source [id number] 08/09/2020 08:34:22 PM EDT [facility] Name Value Range Interpretation Code Description Data Debbie rce(s) Supporting Document(s) &PDF [facility] [id number]/ZWLerBRBrq4WxNYzoQOj4KEziSFAoV6RhkKnoZQCXIOPQIdiSKHyVTY9KFBVP 0b3 [file] AgICAgICAgICAgICAgICAgICAgICAgICAgICAgICAgICAgICAgICAgICAgICAgICAgICAgICAgICAgIC AgICAgICAgICAgICAgICAgICAgICAgICAgICAgICAg CT2YVVUoZDUtHJWrXXChTJGgSSQmNCTrNODsHLQtKWXsPGYeQCXqDWYkCKVfULToYFJrDTGpVJPwOMRn GAAoTRMnFEYpDWEqFZKtLZSgAWCdNRHeBDRxIDNtBVXvVFKfIFBbVHMnHW0IAHLnZZTfYVPvIRPzBZUe ICAgICAgICAgICAgICAgICAgICAgICAgICAgICAgIC EsYZXrBVYhRZGtNROfTRJgCWUoTYJhDGIbHAYuUJCpCCKrIGErKASyCCRqJJSfTFCcTUGnWE0YDXGfHO AgICAgICAgICAgICAgICAgICAgICAgICAgICAgICAgICAgICAgICAgICAgICAgICAgICAgICAgICAgIC AgICAgICAgICAgICAgICAgICAgICAgICAgICAgICAg IKMyWB2MSKViNHXpXKMlIOKkSICzZCEoWLYiGSVkBBPmKPTkXEIrBTXiBJQqKHXuUOYsCOQoFUCbUQMk VKVqHAXyQUImBEFxVRPaQWYrIZVmCXYcJXYtXIIoGHZvLLTrUMMyTXAtNVZeSW5GTCAoSHHjXUOnFJAc ICAgICAgICAgICAgICAgICAgICAgICAgICAgICAgIC MmPDTbXINlCOFiGSByHUDvGDNlLVExPWGbGKAyDXGpNNOeGGYmEPDbSOFwMMWaPNJgPNNuASHfYJ1EVS AgICAgICAgICAgICAgICAgICAgICAgICAgICAgICAgICAgICAgICAgICAgICAgICAgICAgICAgICAgIC AgICAgICAgICAgICAgICAgICAgICAgICAgICAgICAg OGDfCNGjSH0QZWBaSVWdXJGoTRWzYJJwCCLuPNAjUYWmJRTmWNLxNOOyHRLjVOBxPJUoFNPoGMWxSGUp XRAmHFOiDKWuHUOlSOMcXUMpXYTjMWHsYPHiXVDkHXEqHVXmLPEyNDBdVBBoTSCxOL4VRWQdVKVuQSWb ICAgICAgICAgICAgICAgICAgICAgICAgICAgICAgIC AgICAgICAgICAgICAgICAgICAgICAgICAgICAgICAgICAgICAgICAgICAgICAgICAgICAgICAgICAgIA 0KICAgICAgICAgICAgICAgICAgICAgICAgICAgICAgICAgICAgICAgICAgICAgICAgICAgICAgICAgIC AgICAgICAgICAgICAgICAgICAgICAgICAgICAgICAg DFRyHHUnECSfVT1QKN27yMPvv5V2ZBSaKG3mohl/Fx5SBXxexsZpbKQrOB3DHuQkXK2mom6QZfLcYN8s ax1KIXhONnYcT7X4dZAxBZXyNHRHWvBeC99vGXmkGt25HKkoIAFpDxMaRKz0Bc1FJcEnE5rdMEKjTmW4 BBElPdP2AHUhDyOtJDozTK0Jx6XqqNWuOOi+Pg0KZW 9ww6AlBPqsHOFzXX5bbd2GQUuEJeLeE1E3pKNhE5S2GShmFi4EERCnLSTaEiBmQZZMMIynCW6FFL4ioi U6JT0AwZDnJGBqMTJgzMEoXLg1J92orGNtXEnfOF1VCNE+Magdy+Fs3IVETvDLIwCYBnJqYgPDCFZvLtD6 0auWOsNZRlGYA9KLJjSc1ECEZbA0XqyrVtbMprovSh FEXqKXFZRW7YAFrezdOptAQpzJizYX11bHpdZZ3NLc6KYtMfVW0ipj3BpDDeVk7PEVJxVI3OXEJnHICa IZYuLGU4SRJjAqLbFSjbUOVwGQOyYBM6CHKtCASoBF1KCcBkMODjKCNhZtHsRVNnYMIqzw0FQLIsAFGz HjBpSoJhNDUoOGGgODqjOUQoJQCuQCf3ROZdIXJkEH 2HMmCdEDFfIXFbLaouPBIdSSXcmw0ISBQxJUWnMWO8HwXpUPLiWGKkMEzcGUOiMCI5KKA0KXNjVUCgMB 3SMsElFJCbJLeuIfYuGVNgUSUuvw0XFBDqDOTrNYC5MYQdDPIoUBIaLAkiKIDrVLM1Drn3KHDhAJNbBB 3WCfRiSAFeBZf7IuDxKHKtBHLwfp9QIBNpWAJzGCEk AAOfEQIdDAAyUTgdJNTaNCV5DjP6EQGtHYFdXA7WVoBoCBRyMCh9UYOaKVXcDAHivk8KHZEwMDMzLUg9 AhJwUFHnIMRxJAuePIIzYMBtEFi4MSQtYNIeOM6BHhQkQMJcCEZwBPvhTJFvAVZxtl9RRXAiKZXvAfGf FbSzJVSdHFQnUIvvJUQcKAUuKdE4TNDlGTIiRR8ZSa XoDVIpNTP2DKKqDVRgSUIqlb1BDRTrQYPaNpzmTkHnSJOdWNIoHXkvAFKnXWAbIWL4EGPbDZEnAK4OUd RtADJzEXP2TaozKYAoWVVqwd8KRZJnCNSbYhm7FHOdWKHhGQQhZEztOUQjJOOmSSg9MDDpWHRtML5EPv IbGTPfOZGqBWFmNBZlCLDpdj9AOQUnKBDwXTy2GzJe AZBjDNOsCZgpNSNrUUU0EdC4OAXaCLIiCT6WIbOeXGkzIKRNYtk5VPukF4y2AOGyRF1ML4Fnc5LnNasx UYNDEPznIE5rvaGcQECuSb4NH0dPQpbkIlqsAgVvKEGnLPL9Ioq2DWN8A9H9I1TkXuZ3OtV0DC4jFMM2 MDMrW1OhEAGsQaqdMGQpUUpwLSIwSBUyWRNuIJb3Pv ClRK2WBs6NBuN5WPU6tLZyHw4LJCR2FBIZTlJfZE6IMRm= ID Date Data Source [id number] 08/07/2020 09:24:00 AM EDT [facility] ([facility]) Name Value Range Interpretation Code Description Data Debbie rce(s) Supporting Document(s) INR in Platelet poor plasma by Coagulation assay 1.5 [facility] ID Date Data Source [id number] 08/07/2020 09:15:00 AM EDT [facility] ([facility]) Name Value Range Interpretation Code Description Data Debbie rce(s) Supporting Document(s) Urea nitrogen [Mass/volume] in Serum or Plasma 19 mg/dL 7-18 [facility] ([facility]) Glucose [Mass/volume] in Serum or Plasma 103 mg/dL 74-99 [facility] ([facility]) 100-125 mg/dL PRE-DIABETES/FASTING >126 mg/dL DIABETES/FASTING Creatinine 1.2 mg/dL 0.6-1.3 [facility] Sodium [Moles/volume] in Serum or Plasma 142 meq/L 136-145 [facility] ([facility]) Chloride [Moles/volume] in Serum or Plasma 102 meq/L 98-107 [facility] ([facility]) Carbon dioxide, total [Moles/volume] in Serum or Plasma 31 meq/L 21 -32 [facility] ([facility]) Potassium [Moles/volume] in Serum or Plasma 3.3 meq/L 3.5-5.1 [facility] ([facility]) NOTE: RESULT VERIFIED. Glomerular filtration rate/1.73 sq M pre dicted among non-blacks [Volume Rate/Area] in Serum or Plasma by Creatinine-based formula (MDRD) 58 mL/min [facility] ([facility]) Calcium [Mass/volume] in Serum or Plasma 9.1 mg/dL 8.5-10.1 [facility] Glomerular filtration rate/1.73 sq M pre dicted among blacks [Volume Rate/Area] in Serum or Plasma by Creatinine-based formula (MDRD) Laboratory test result [facility] <content>CHRONIC KIDNEY DISEASE STAGING PER NKF</content>
<content></content>
<content>STAGE I & II GFR >= 60 NORMAL TO MILDLY DECREASED</content>
<content>STAGE III GFR 30-59 MODERATELY DECREASED</content>
<content>STAGE IV GFR 15-29 SEVERELY DECREASED</content>
<content>STAGE V GFR <15 VERY LITTLE GFR LEFT</content>
<content>ESRD GFR <15 ON LEAD SUPPLY WORKER</content>
<content></content> ID Date Data Source [id number] 08/07/2020 09:15:00 AM EDT [facility] ([facility]) Name Value Range Interpretation Code Description Data Debbie rce(s) Supporting Document(s) Leukocytes [#/volume] in Blood by Automated count 10.6 x10*3/UL 4.1-1 0.9 [facility] ([facility]) Erythrocytes [#/volume] in Blood by Automated count 4.62 x10*6/UL 4.2 0-6.30 [facility] Hemoglobin [Mass/volume] in Blood 13.6 g/dL 12.0-18.0 [facility] Hematocrit [Volume Fraction] of Blood by Automated count 39.7 % 3 7.0-51.0 [facility] ([facility]) MCH 29.5 pg 26.0-32.0 [facility] MCV 85.9 fL 80.0-97.0 [facility]) MCHC 34.3 g/dL 31.0-38.0 [facility] Platelets [#/volume] in Blood by Automated count 249 x10*3/UL 140-440 [facility] Erythrocyte distribution width [Ratio] by Automated count 13.3 % 11.6-13.7 [facility] ([facility]) MPV 9.1 FL 7.8-11.0 [facility]) Lymph % 13.6 % 10.0-58.5 [facility]) Mid % 3.7 % 1.7-9.3 [facility]) Neut % 82.7 % 37.0-92.0 [facility] Mid # 0.4 x10*3/UL 0.1-0.6 [facility] ([facility]) Lymph # 1.4 x10*3/UL 0.6-4.1 [facility] ([facility]) Neut # 8.8 x10*3/UL 2.0-7.8 [facility] ([facility]) ID Date Data Source [id number] 08/03/2020 08:20:40 AM EDT [address] [id number] Name: KENDRA CONKLINBRANDANDOB: 1935Sex: Chris Provider: BELINDA Salcedo Prov: BELINDA Galvez Provider: Procedure Performed: CT CALCIUM SCORE ONLYExam Date: 08/02/2020 14:14MRN: [id number] Number: [id number] Class: OutpatientAccount #: [id number].Comparison: NoneReason for Exam: aortic stenosis, calcium score of aortic valveTechnique: Gated low dose calcium scoring was performed of the aortic valve and coronary arteries using the [address] scanner...Comparison: NoneFINDINGS:C oronary calcium score: Left Main: 1478Right coronary artery: 2213LAD: 703Circumflex: 2733Posterior descending: Not measuredTotal calcium score: 7127Aortic valve calcification: 2967Ancillary findings: The heart is normal size. Mild scarring present in both lungsCalcium score impression:1. Severe coronary artery calcification indicating extensive atherosclerotic plaque. High likelihood of significant coronary narrowing.2. Marked aortic valvular calcification.Report electronically signed by: KENDRA MCCONNELL On 08/03/2020 8:20 AMWorkstation ID: [id number] Name Value Range Interpretation Code Description Data Debbie rce(s) Supporting Document(s) ID Date Data Source [id number] 08/02/2020 11:21:02 AM EDT [facility] Name Value Range Interpretation Code Description Data Debbie rce(s) Supporting Document(s) EKG [facility] AIIRMx6jSiFQRkMtw7BnRqEqCFCpGT4nrdj0W7M1kSPbN2HemHEvd8zgC5EqA4SmZLByXAQUUG9UtPCp jb2 [file] ppfIvp6H+44yyN/SUephYNr7fpWFwdwi2aIxcDjwEl9b+PATIENT FINANCIAL SERVICES MANAGER+Y/FV+5//JG5Nv1Q++fe//dufv6z/+X// +tz4/O/Pf46L//nXv/zjr//0j//rT/Xy5x//46//7R9/2mzvq59pI5hd+5//8p//0b49ugM411/+nMs+ P//+/ee//jKtzSRapVukvaxb4MlyzqV3N9guyzhcx7 dcbnm+DsGDiroyYVNyJNGgh63otRGlFjr9m5O0VSqwsD1n8dRoFgf5nY4TU4f2m6bqUE0x1sQhg+1yaZ iagvd7t6N3xlUg2yKAzBkM2ixYrbeoTzIoJddsOyaoncjMmrKnvribnmouCvbHb0qvgAvtlqLtH3rwnh OqpyaZzO4dl4dYb1bbT1R5ekmpPl6oaX5K8nMxn6n1 q+b1jKrYl+3f2m7g66GxDB50ycrJqLxaHU39x1y4lb4Lg8b82N4y5Ef2QLTaTOT8wxKl2YPDoskZ4GvU lpNFwVxArM8V4xEgs2q4e+F0OAfOhW4c7j0F1wBoYYP8n5i2Gc3PdNgT6S4z9Tu/JD8uy5l9vQ7yy4oU t8Nh42R8jcbjUm4pxC5Q3gLgc3e7k+P0KHtJjh6c0i 45i1gk6wKnrvYcY8rqX5j6yqgEmp2omy4l8vjuJ9h6c3y0vZufjw0r689h1aEh/gftk6B0G3LaxcCDh5 V74RDwwzstlkfo+Gqhah2D5FsYCjlEc463byiwDZ9R0bTCiWlsG9SI/j1FdlmPw7YlX+OBJ5iahK8mlb fHS32laDS/ksneRl80qjQU/Pnkse1M/Odbth5G+a+v xAova4ajX7T/njkoS8R/afhkd7B/amvdf8E/6mfao3L//ompg2I/Wimko2D/Refyg3C542jLsuZIS4GO uY2MkjQVfL7rkmXBcM2yzvAghU8/xdRhsR+PxdRlsR+fxdRpsR+vxdRtsR+/xdRxsR/QhcW4wC/fxdR5 sR/gjyB3lJ//imLXxF4RsoCAcK8zoyPRlB7jtqQBtn 9hbcQ18g483COfI0/T0IayT4/P7C2oW4/T3LIjZ0/N8ANhA0/Z8CmkB6/P3J6bN2/G9JWf6qvAfO505E 3HmFb44S7F2Dc05F8LITi92XHCELr00JDOjLl50TZG4Wd14SUTSZ542LUYFR066RKBmW506IZP1O136W iUUC810RcCLX713AvQgN994NsO3Y578YiWQU/78XxM XR/21J7ZjR/22P2U2Z/02L1HKQQ72VXWYZV76NOEsOP44XAD1ZT05LKUJJF03FKLOFY20CFFvNS00BSY 3BI46Bnr/SH/8Ydc/SH/8Ydc/SH/8Ydc/SH/8Ydc/SH/8Ydc/SH/8Ydc/SH/8Ydc/SH/8Ydc/SH/8Ydc /SH/8Ydc/SH/8Ydc/SH/8Ydc/SH/8Ydc/SH/8Ydc/S H/8Ydc/SH/2T7GIzQ/OzRpi+le3zHfVTlaylKztc91lgZS37iPw5Sicuuv8paD147Z6j975Rsu/SH/8Y dc/SH/8Ydc/SH/8Ydc/SH/8Ydc/SH/8Ydc/SH/8Ydc/SH/8Ydc/SH/8Ydc/SH/8Ydc/SH/8Ydc/SH/8Y dc/SH/8Ydc/SH/8Ydc/SH/8Ydc/SH/8Ydc/SH/8Ydc /SH/8Ydc/SH/8Ydc/SH/8Ydc/SH/8Ydc/SH/8Ydc/SH/8Ydc/SH/8Ydc/SH/8Ydc/SH/8Ydc/SH/8Ydc /SH/8Ydc/SH/8Ydc/SH/8Ydc/SH/8Ydc/SH/8Ydc/SH/8Ydc/SH/8Ydc/SH/3ThnO8j98SJuV9plDH5y 3a1YGkyR275B4e1VK918zh1eavtryjZ4pn3hifet65 oe1/i5ogh0Vy1cfusmen3k9s0o7fiyrrhtcqjeua3w9g7n8dxxyxtjcqlcwn3p8p5p8Mtoyihevirkkz 8r0t3k3Jncyqoaxrteaw1s3n0k0Tngvfxzdeajgp7t1h7h2givim6h4kgbzu8l6v6e2mizrv8c0qntJK M8gifum4r3w2h4oeHnmZsLyuoxb2l8C5y5yoGurGcO aovyd6w5S8x0lhGejAyBfpade4d7N4l4asYjecagczqej8t3I2r3lvQxkbrvjqqdo8c6F8x8frOoxgoY cvxob7k5M9f2ghSzmTxGtzqag1k0P4u6ikJljYjUqqwaj4t9B5l1bdBfq1o4ynhek6i5S4y3ggFzi7q6 ctsrm6d8F4e8ocYma9y0cepxx4AOpOftNmV7M/c83a cgHz47LzeT1b0l7jP0Vw8cNd5rHX2qVv6xYD5iBlHENflwor2B+xr5z1I5IFOUOuoicl2J+li4Y2iZ7R qQbpI1KpL6nUvVYe7KZY/AjpsiqSsi4MQG1nKnrMCO/SwWulCzS0MAQ6QTt8EgBOusBvb6D3u8SPlCsQ PXtrKSQzwthUBDBYNpVKqKeqfME80YXx/Ckmthybew 6DlG3q6bhHtE/VfTDyBhQ3MCh8UBe9RmRYaqHhc8BAx1MUmRqyBKl1FaBdnZkPBoRPS5FYmfjdcQAl0H JY/Aqoswnkso3BHM3scdzH6O/M4Lpoyle1U8Xv89JF94Ma9sX+Hxo4xo+C93ocny5sozu4gceeyNm7ke 33J5y/NbVd6q+o5kv8H2KoVB9pyywEJcO32t6aqnRg /1/NaQt0Z+z8vdM8624p2F18at8sywAZoj4scEvSZwC8rk0w2hbZR9S4lHp0g3dRTNhU2/byYD+bWQZC I/DcZmDKNbZdLhBj35Zffe3xZxtoCo3yewotd/vKnmYj/0Ovtc3eXndbMgSqInmiR5UjIyCyI/dmNqOP ZjOaamYz+8Y2d26fO6iwMeT/VmgpF1W2AbEvP/NuRq Q/2cH2957F724PxP/mNDrjbkvziTgOYXaRLU/LuAnc76ad781vG/2JCrDfmPDbnakP/YkKsN+P5JplbY /9qQrp50bi728jO/2JC+47197e8Jto2lY3T46E2Ft0z+U/Penp6NtxzaR79wlehT03q1isQ6bh5gwO9k 0EhU7oe3ajT3sn6x1Q6v44b4C+k7S99Z+s7Sd7a+s/ [file] AgbiAKMDAwMDAwMTQwNiAwMDAwMCBuIAowMDAwMDYw PGGvFROnZHFyRD0dPtSdTJWnVOR1WXuhMRHmRILpfbLTAYKjMCBpTRmjWPHqQJZjVIJeCDzvAOCdMKEe NZY0FDZoRELuPU7jWsMpPKKpGOBaYQZfWaD8OtToIvEXeRRuzXfviin2SPlnC5k8RQYnMCafFV5iqlPm ZBEvAegfQp9etOO4EZWoOjeDRo5By2NqxeI5yyFdTkUiUNI9HkVsIN9L ID Date Data Source [id number] 08/02/2020 10:15:04 AM EDT [facility] Name Value Range Interpretation Code Description Data Debbie rce(s) Supporting Document(s) &PDF [facility] ZSJTAo4oApJEEbYu30/FVOeaGZSbs0QbNPaeBPc0OQlhLBRxC3EexKnjWAZYOXNOMqeKMAhZVX1BABHD 0b3 [file] JJ0f2u84icpy+TFrT0ZuhK3E0mQNldwyFq5Yooxsz0ucEcYdZRbjT79jDuuhx+myuR/[facility]+xFsRv8Jrd [file] JqKxSuAW4TYe3XYcK4FZV5kFRqTj4BFfenLnOXGdDmML6JGTe= ID Date Data Source [id number] 08/02/2020 08:43:10 AM EDT [facility] Name Value Range Interpretation Code Description Data Debbie rce(s) Supporting Document(s) EKG [facility] QDRZCv8mXuEXFiHuy3XxPnBdWOKuRY6ohbe0S1H3tGEkA2TfqOUuk6gkD2XaV3UvTIXfCGFGLK6RjZPq jb2 [file] Rg== ID Date Data Source [id number] 08/02/2020 07:39:44 AM EDT [facility] Name Value Range Interpretation Code Description Data Debbie rce(s) Supporting Document(s) POC PTINR 1.1 [facility] BEEBE SUGGESTED THERAPEUTIC RANGES USING INR F ORSTABILIZED ANTICOAGULATED PATIENTS:STANDARD DOSE THERAPY INR 2.0-3.0 DVT, PE, PREVENT DVT OR EMBOLISMHIGH DOSE THERAPY INR 2.5-3.5 PREVENT EMBOLISM FROM MECHANICAL HEART VALVEPERFORMED BY [facility] ID Date Data Source [id number] 07/28/2020 01:45:00 PM EDT [facility] Name Value Range Interpretation Code Description Data Debbie rce(s) Supporting Document(s) Coronavirus 2019 Nasopharygeal Laboratory test result [facility] ASSAY INFORMATION: Real Time RT-PCR NOTE: The COVID-19 assay has been cleared by the U.S. Food and Drug Administration under the Emergency Use Authorization (EUA). [facility] and [facility] are designated as high complexity laboratories by the Clinical Laboratory Improvement Amendments of 1988(CLIA) and are qualified to perform this test. Not Detected ID Date Data Source [id number] 07/28/2020 01:45:00 PM EDT [facility] Name Value Range Interpretation Code Description Data Debbie rce(s) Supporting Document(s) SARS-CoV-2 (COVID-19) RNA [Presence] in Respiratory specimen by MAGDY with probe detection Not Detected [facility] This lab was ordered by [facility] and reported by [employer]. ID Date Data Source [id number] 07/24/2020 12:01:00 PM EDT [facility] NT INFORMATIONPatient MRN Name Date of Age Gend*PT [id number] Kendra Muro 1935 84 years M IPPT Location Admission Date/Time Visit ID Attending [id number] 07/20/20 0738 --- --- EPI ID CSN Admitting Provider [id number] Renetta Guzman MD([id number]) Attestation signed by Renetta Guzman MD at 07/24/2020 12:00 PMSignature: SUZANNE Cobbate: July 24, 2020Time: 12:00 PM Cardiology Discharge SummaryPatient Name: Kendra Muro of : 1935 Age 84 yearsPrimary Physician: SAMEER TRISTAN MD PCP Hnsanqczd Date: 07/20/2020 Discharge Date: 07/21/2020He will be discharged from [facility] to [facility] Diagnoses:Principal Problem: Acute systolic heart failure Aortic stenosis, severe residential (current) use of 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s Peripheral vascular disease, unspecified Atherosclerosis of crow coronary artery of crow heart without anginapectoris Stented coronary artery Essential hypertension, benign Ischemic cardiomyopathyMedications: No changesResume CoumadinFollow Up Instructions:Dr. Anderson Hospital Course:The patient has a history of coronary artery disease post bare-metal stent tothe left circumflex remotely. He has COPD. He is short of breath during coldweather and when he is exerting himself. An echocardiogram has been donerecently and showed mild left ventricular systolic dysfunction and aorticstenosis with a mean gradient in the mid 30s but with an area below 1. He wassuspected to have severe aortic stenosis and was referred for right and leftheart catheterization for further evaluation. His creatinine is 1.5 and he wasreferred for preoperative hydrationAcute heart failure in the setting of critical aortic stenosis:TTE showed EF 30-35% with global hypokenesis, dilated IVC < 50% collapse, severecalcification with reduced excursion of aortic valve, critical ASCath canceled due to increased dyspnea post pre-hydrationGiven Lasix IV and transferred to ICU, lasix gtt started, I/Os -2.3 LDiuresed well and transferred to telemetryHe denies angina or equivalent symptoms.Confused- Was found in the lobby earlier looking for his motherConfusion is not new per family. Presently is ambulating in the carranza with loretta.Family and patient wishes to be discharged to home.HD stable and compensated on examWill follow up with Dr. Higginbotham questions answeredDischarge Exam:Blood Pressure: BP: 138/70 Pulse: Heart Rate: 77Temperature: Temp: 98 F Respirations: Resp: 16Admission Weight: Weight: 71.8 kg (158 lb 4.6 oz) O2 Saturation: SpO2: 94 %Discharge Weight: Weight: 77 kg (169 lb 12.8 oz) BMI: Body mass index is 30.08kg/m .Diagnostics:Lab ResultsComponent Value Date CREATININE 1.21 07/21/2020 CREATININE 1.02 07/20/2020esults from last 7 daysLab Units 07/21/2111WBC 10*3/uL 10.9 12.7*HEMOGLOBIN g/dL 14.0 14.7HEMATOCRIT % 41.2 43.8PLATELETS 10*3/uL 219 279Results from last 7 daysLab Units [id number] I ng/mL <0.05No results found for: PROBNPResults from last 7 daysLab Units 07/21/2107INR 1.63 1.4Results Procedure Component Value Units Date/Time Sputum culture [[id number]] Collected: 07/20/201619 Order Status: Completed Specimen: Sputum Updated: 07/21/20 1204 Specimen Description SPUTUM Gram Stain Result MODERATE (10 TO 25/LPF) WHITE BLOOD CELLSFEW (<10/LPF) EPITHELIAL CELLSNO BACTERIA Culture Result NORMAL BLESSING AFTER 1 DAY Report Status PENDING Legionella culture [[id number]] Collected: 07/20/201619 Order Status: No result Updated: 07/20/20 1649 Sputum culture [[id number]] Order Status: Completed Specimen: SputumPriya Meyers NPToanne time spent for discharge on date of discharge: 30 minutes Name Value Range Interpretation Code Description Data Debbie rce(s) Supporting Document(s) ID Date Data Source [id number] 07/21/2020 05:21:42 PM EDT [facility]PATIE NT INFORMATIONPatient MRN Name Date of Age Gend*PT [id number] Kendra Muro 1935 84 years M IPPT Location Admission Date/Time Visit ID Attending [id number] 07/20/20 0738 --- Renetta Guzman MD([id number]) EPI ID CSN Admitting Provider [id number] Renetta Guzman MD([id number])DISCHARGE SUMMARYAdmission Date: 07/20/2020ischarge date: 07/21/20PRINCIPAL DIAGNOSIS: Acute heart failure and severe aortic stenosis.CURRENT WXRGFQPVIZWG86-hpci-dav man with history of coronary artery disease post bare-metal stentplacement to the left circumflex and history of COPD who is short of breathwhile walking in the cold weather and sometimes with acute onset shortness ofbreath and symptoms of heart failure at home with an echocardiogram that showedmild left ventricular systolic dysfunction and severe aortic stenosis with lowflow and low gradient with a mean gradient in the mid 30s. He was referred forright and left heart catheterization.HOSPITAL COURSEWhen he was seen in the preoperative cardiac cath area yesterday he was in acuteheart failure with orthopnea wheezing and rails. He was given Lasix IV withlittle response in the procedure was canceled and the patient was admittedtransiently to ICU where he had adequate diuresis with improvement of his statusand he had adequate saturation on room air. Today the plan was to proceed withcoronary angiography since his creatinine was stable around 2 and assess theseverity of his coronary disease and aortic stenosis. The patient refused toundergo the test in the morning and in the afternoon when we met with him andhis family he repeated the same. I explained to him that the risk of deathwithin the first year with severe aortic stenosis and congestive heart failureis as high as 50%. They also asked him what would he do if he requiresdialysisin case he goes into complete kidney failure with dye administrationandhe told me that he might be the siena who would not want to go to dialysis. Atthis time he had a long interview with the [facility] staff and myself and with hisfamily and he is adamant that he wants to leave and go home. Upon his requestand since this is not a true emergency I told him that we would discharge himwith increased dose of Lasix and decrease dose of beta-blockers and he willfollow with Dr. Tristan and Dr. Mcgraw in [place]. They would optimize hismedical management. If he changes his mind and he becomes willing to considercatheterization and possible TAVR he may be referred back. He will be seen incardiology early next week with CBC and BMP check.An echocardiogram was done yesterday during the acute episode and showed severeleft ventricular systolic dysfunction and probably severe aortic stenosis.Of note that the patient has renal insufficiency and prior femoral artery injuryand he was told by his vascular surgeon that he would require long-term probablylifelong anticoagulation with Coumadin.TODAY'S PHYSICAL EXAM:BP 138/70 (BP Location: Right upper arm, Patient Position: Lying) | Pulse 77 |Temp 98 F (Tympanic) | Resp 16 | Ht 1.6 m (5' 3") | Wt 77 kg (169 lb 12.8oz) | SpO2 94% | BMI 30.08 kg/m Alert and oriented to place and self. Difficult to assess for JVD. Lungs withdecreased breath sounds and heart sounds muffled S1 and absent S2 with 2 out of6 systolic ejection murmur.SIGNIFICANT DIAGNOSTIC DATA:Results from last 7 daysLab Units WBC 10*3/uL 10.9HEMOGLOBIN g/dL 14.0HEMATOCRIT % 41.2PLATELETS 10*3/uL 219Results from last 7 daysLab Units SODIUM mmol/L -- 144POTASSIUM mmol/L 4.1 3.6CHLORIDE mmol/L -- 107CO2 mmol/L -- 27BUN mg/dL -- 23CREATININE mg/dL -- 1.21GLUCOSE mg/dL -- 88CALCIUM mg/dL -- 9.1Results from last 7 daysLab Units [id number] I ng/mL <0.05DISCHARGE MEDICATION LISTYour medication listCHANGE how you take these medications Instructions Last Dose Given Morning Afternoon Evening Bedtime As Neededatenolol 50 MG tabletCommonly known as: TENORMINStart taking on: July 22, 2020What changed: how much to take Take 0.5 tablets (25 mg total) by mouth dailyfurosemide 20 MG tabletCommonly known as: L ASIXWhat changed: how much to take when to take this Take 2 tablets (40 mg total) by mouth 2 (two) times a daylosartan 100 MG tabletCommonly known as: COZAARWhat changed: how much to take Take 0.5 tablets (50 mg total) by mouth dailyCONTINUE taking these medications Instructions Last Dose Given Morning Afternoon Evening Bedtime As Neededacetaminophen 325 MG tabletCommonly known as: TYLENOL Take 650 mg by mouth every 6 (six) hours as needed for painalbuterol 108 (90 Base) MCG/ACT inhalerCommonly known as: PROVENTIL HFA;VENTOLIN HFA Inhale 2 puffs every 4 (four) hours as needed for wheezingamLODIPine 5 MG tabletCommonly known as: NORVASC Take 5 mg by mouth dailyaspirin 81 MG chewable tablet Chew 81 mg dailyatorvastatin 40 MG tabletCommonly known as: LIPITOR Take 40 mg by mouth dailybrimonidine 0.2 % ophthalmic solutionCommonly known as: ALPHAGAN Administer 1 drop to both eyes 2 (two) times a dayfluticasone-salmeterol 250-50 MCG/DOSE DISKUSCommonly known as: ADVAIR Inhale 1 puff 2 (two) times a daylatanoprost 0.005 % ophthalmic solutionCommonly known as: XALATAN 1 drop nightlylevothyroxine 75 MCG tabletCommonly known as: SYNTHROID, LEVOTHROID Take 75 mcg by mouth dailynitroglycerin 0.4 MG SL tabletCommonly known as: NITROSTAT Place 0.4 mg under the tongue every 5 (five) minutes as needed for chest painPt reports taking 1 pill SL today bc he was anxious. Could not report if thepill young d any effectOmeprazole 20 MG Tbdd Take 20 mg by mouthwarfarin 5 MG tabletCommonly known as: COUMADIN Take 5 mg by mouth dailyWhere to Get Your MedicationsThese medications were sent to [facility] [address] [place] [address] losartan 100 MG tabletInformation about where to get these medications is not yet availableAsk your nurse or doctor about these medications atenolol 50 MG tablet furosemide 20 MG tabletSignature: Renetta Guzman, MDDate: July 21, 2020Time: 5:15 PMCC: Dr. Mcgraw and Dr. Harmon document or parts of this document, were dictated using [employer] software. A reasonable attempt at proofreading has been made tominimize errors. Please call with any questions or corrections. Name Value Range Interpretation Code Description Data Debbie rce(s) Supporting Document(s) ID Date Data Source [id number] 07/21/2020 03:19:30 PM EDT [facility] Name Value Range Interpretation Code Description Data Debbie rce(s) Supporting Document(s) MAGNESIUM 2.0 mg/dL (1.7-2.4) [facility] ID Date Data Source [id number] 07/21/2020 03:19:30 PM EDT [facility] Name Value Range Interpretation Code Description Data Debbie rce(s) Supporting Document(s) POTASSIUM 4.1 mmol/L (3.6-5.2) [facility] ID Date Data Source [id number] 07/21/2020 06:18:49 AM EDT [facility] Name Value Range Interpretation Code Description Data Debbie rce(s) Supporting Document(s) MAGNESIUM 1.8 mg/dL (1.7-2.4) [facility] ID Date Data Source [id number] 07/21/2020 06:18:49 AM EDT [facility] Name Value Range Interpretation Code Description Data Debbie rce(s) Supporting Document(s) SODIUM 144 mmol/L (136-145) [facility] POTASSIUM 3.6 mmol/L (3.6-5.2) [facility] CHLORIDE 107 mmol/L (100-108) [facility] CO2 27 mmol/L (22-31) [facility] ANION GAP 10 mmol/L (7-16) [facility] UREA NITROGEN 23 mg/dL (7-24) [facility] CREATININE 1.21 mg/dL (0.80-1.30) [facility] BUN/CREAT RATIO 19.0 RATIO (10.0-20.0) [facility] GLUCOSE 88 mg/dL (70-99) [facility] CALCIUM 9.1 mg/dL (8.4-10.2) [facility] GFR 57 ml/min/1.73m2 (>59) L [facility] GFR ([facility]) >60 ml/min/1.73m2 (>59) [facility] GFR INTERPRETATION [facility] --NORMAL KIDNEY FUNCTION OR MILD DISEASE - GFR >OR= 60CHRONIC KIDNEY DISEASE - GFR 15 - 59RENAL FAILURE - GFR <15 Est. GFR calculation based on the MDRDstudy equation, which assumes a steadystate for creatinine. Est. GFR should notbe used for medication dosing. ID Date Data Source [id number] 07/21/2020 05:49:29 AM EDT [facility] Name Value Range Interpretation Code Description Data Debbie rce(s) Supporting Document(s) WBC 10.9 10*3/uL (4.1-11.0) [facility] RBC 4.64 10*6/uL (4.60-6.10) [facility] HGB 14.0 g/dL (13.5-18.0) [facility] HCT 41.2 % (41.0-53.0) [facility] PERFORMED AT [address] [place] [address] [place] [address] MCV 89.0 fL (80.0-95.0) [facility] MCH 30.1 pg (27.0-32.0) [facility] MCHC 33.9 g/dL (32.0-36.0) [facility] RDW 14.5 % (10.5-14.5) [facility] PLT 219 10*3/uL (150-450) [facility] MPV 9.8 fL (7.1-10.7) [facility] ID Date Data Source [id number] 07/20/2020 10:37:35 PM EDT [facility] Name Value Range Interpretation Code Description Data Debbie rce(s) Supporting Document(s) MAGNESIUM 1.9 mg/dL (1.7-2.4) [facility] ID Date Data Source [id number] 07/20/2020 10:34:50 PM EDT [facility] Name Value Range Interpretation Code Description Data Debbie rce(s) Supporting Document(s) POTASSIUM 3.9 mmol/L (3.6-5.2) [facility] ID Date Data Source [id number] 07/20/2020 05:53:14 PM EDT [facility]PATIE NT INFORMATIONPatient MRN Name Date of Age Gend*PT [id number] Kendra Muro 1935 84 years M [facility] Location Admission Date/Time Visit ID Attending [id number] 07/20/20 0738 --- Renetta Guzman MD([id number]) EPI ID CSN Admitting Provider [id number] Renetta Guzman MD([id number]) Attestation signed by Kirk Hurtado MD at 07/20/2020 5:53 PMI saw and evaluated the patient and reviewed IT TECHNICIAN's note. I agree with thehistory, physical and medical decision making with the following additions,exceptions, and/or observations:noneSignature: Kirk Hurtado MDDate: July 20, 2020Time: 5:53 PM Nephrology Consult NoteReason for consult: Fluid overloadRequesting physician: Dr. Karla MunizAssessment/Plan:Principal Problem: Acute systolic heart failureActive Problems: Aortic stenosis, severe Cardiac murmur residential (current) use of 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s Peripheral vascular disease, unspecified Atherosclerosis of crow coronary artery of crow heart without anginapectoris Stented coronary artery Essential hypertension, benign Ischemic cardiomyopathy1. Acute diastolic CHF: Will start patient on lasix drip.2. Aortic stenosis: Critical per echo and will need cath and possible TAVRwork-up. Discussed risk of dye use to kidney and possibility of worsening renalfunction and that he may end up needing dialysis. Patient would like to discussthis with his family.Subjective:Mr. Muro is a pleasant 84 year old male with h/o bilateral total kneereplacements, right femeral artery repair after a external grinder tool accident for which heis on coumadin, GERD, Garza's esophagus, HTN, HLD, asthma, former smoker of3 PPD for 45 years, COPD and CAD s/p stent who has noted increased shortness ofbreath since around Duong. He followed with his PCP Dr. Tristan who workedthe patient up and he was found to have EF 45% with severe . Patient wasreferred to Dr. Guzman for cardiac catheterization. The cath could not beperformed today because of severe orthopnea by patient with audible crackles.He was given IV lasix. Apparently per chart review the patient requested tostop the procedure. Patient is currently in ICU satting 96% on room air as hisoxygen is not in his nose and is on the side of his face. He denies worsenedSOB than from his baseline. Denies chest pain, N, V, abd pain, diarrhea,constipation. Denies dysuria, hematuria, foamy urine, kidney stones. Stream isdiminished, but feels he is able to empty his bladder. Admits to some edema inhis legs for which he takes furosemide at home.Denies NSAID use. Has been on losartan at home. Lives at home with his .Son at bedside, but patient reliable historian, just slightly TAKOTNA.ROS: pertinent per HPI.PMH:Past Medical History:Diagnosis Date Asthma Garza's esophagus Cataract cortical, senile COPD (chronic obstructive pulmonary disease) Coronary artery disease GERD (gastroesophageal reflux disease) HypertensionFH: No family history on file.,SH:Social HistorySocioeconomic History Marital status: Spouse name: Not on file Number of children: Not on file Years of education: Not on file Highest education level: Not on fileOccupational History Not on fileTobacco Use Smoking status: Former Smoker Years: 40.00 Smokeless tobacco: Never UsedVaping Use Vaping Use: Never usedSubstance and Sexual Activity Alcohol use: Not Currently Drug use: Never Sexual activity: Not on fileOther Topics Concern Not on fileSocial History Narrative Not on fileSocial Determinants of HealthFinancial Resource Strain: Difficulty of Paying Living Expenses:Food Insecurity: Worried About Running Out of Food in the Last Year: Ran Out of Food in the Last Year:Transportation Needs: Lack of Transportation (Medical): Lack of Transportation (Non-Medical):Physical Activity: Days of Exercise per Week: Minutes of Exercise per Session:Stress: Feeling of Stress :Social Connections: Frequency of Communication with Friends and Family: Frequency of Social Gatherings with Friends and Family: Attends Sabianism Services: Active Member of Clubs or Organizations: Attends Club or Organization Meetings: Marital Status:Intimate Partner Violence: Fear of Current or Ex-Partner: Emotionally Abused: Physically Abused: Sexually Abused:Meds:No current facility-administered medications on file prior to encounter.Current Outpatient Medications on File Prior to EncounterMedication Sig Dispense Refill acetaminophen (TYLENOL) 325 MG tablet Take 650 mg by mouth every 6 (six) hoursas needed for pain albuterol (PROVENTIL HFA;VENTOLIN HFA) 108 (90 Base) MCG/ACT inhaler Inhale 2puffs every 4 (four) hours as needed for wheezing amLODIPine (NORVASC) 5 MG tablet Take 5 mg by mouth daily aspirin 81 MG chewable tablet Chew 81 mg daily atenolol (TENORMIN) 50 MG tablet Take 50 mg by mouth daily atorvastatin (LIPITOR) 40 MG tablet Take 40 mg by mouth daily brimonidine (ALPHAGAN) 0.2 % ophthalmic solution Administer 1 drop to botheyes 2 (two) times a day fluticasone-salmeterol (ADVAIR) 250-50 MCG/DOSE DISKUS Inhale 1 puff 2 (two)times a day furosemide (LASIX) 20 MG tablet Take 20 mg by mouth daily latanoprost (XALATAN) 0.005 % ophthalmic solution 1 drop nightly levothyroxine (SYNTHROID, LEVOTHROID) 75 MCG tablet Take 75 mcg by mouth daily losartan (COZAAR) 100 MG tablet Take 100 mg by mouth daily nitroglycerin (NITROSTAT) 0.[address] 0.4 mg under the tongue every5 (five) minutes as needed for chest pain Pt reports taking 1 pill SL today bche was anxious. Could not report if the pill had any effect Omeprazole 20 MG TBDD Take 20 mg by mouth [DISCONTINUED] ketorolac (ACULAR) 0.5 % ophthalmic solution 1 drop 4 (four)times a day warfarin (COUMADIN) 5 MG tablet Take 5 mg by mouth dailyAll: No Known Drug AllergiesObjective:Blood Pressure: BP: 157/86 Pulse: Heart Rate: 86Temperature: Temp: 97 F Respirations: Resp: 26Admission Weight: Weight: 71.8 kg (158 lb 4.6 oz) O2 Saturation: SpO2: 100 %Today's Weight: Weight: 71.8 kg (158 lb 4.6 oz) BMI: Body mass index is 28.04kg/m .Intake/Output Summary (Last 24 hours) at 07/20/2020 1600Last data filed at 07/20/2020 1500Gross per 24 hourIntake 200 mlOutput 550 mlNet -350 mlI/O last 3 completed shifts:In: 200 [I.V.:200]Out: 550 [Urine:550]Gen: NADHEENT: NC, AT, sclera anicteric, oral mucosa moist, some missing dentition,nares patent, throat normal.Neck: supple, no lymphadenopathyLungs: clearHeart: RRR, + murmurAbd: soft, nontender, nondistended, + BSExt: 1+ edema bilaterallyVasc: Radial pulses palpableNeuro: alert and oriented x3, grossly intact, slightly HOHLabs reviewed today at 4:00 PM :Lab ResultsComponent Value Date WBC 12.7 (H) 07/20/2020 HGB 14.7 07/20/2020 HCT 43.8 07/20/2020 PLT 279 07/20/2020ab ResultsComponent Value Date NA 145 07/20/2020 K 4.3 07/20/2020 CL 113 (H) 07/20/2020 CO2 26 07/20/2020 BUN 19 07/20/2020 CREATININE 1.02 07/20/2020 GLU 124 (H) 07/20/2020 CALCIUM 9.2 07/20/2020No results found for: PHOSLab ResultsComponent Value Date CREATININE 1.02 07/20/2020No results found for: BILITOT, BILIDIR, ALKPHOS, ALT, AST, ALBUMIN, PROTImaging:Reviewed.Current Meds:Scheduled Meds: albuterol 2.5 mg Nebulization RTTID [START ON 07/21/2020] amLODIPine 5 mg Oral Daily [START ON 07/21/2020] aspirin 81 mg Oral Daily [START ON 07/21/2020] atenolol 50 mg Oral Daily brimonidine 1 drop Both Eyes BID furosemide 40 mg Intravenous Twice Daily for Loop Diuretics latanoprost 1 drop Both Eyes Nightly [START ON 07/21/2020] levothyroxine 75 mcg Oral Daily mometasone-formoterol 2 puff Inhalation RTBID [START ON 07/21/2020] pantoprazole 40 mg Oral DailyContinuous Infusions: sodium chloride Stopped (07/20/20 1300)PRN Meds:.albuterol, atropine sulfateMaureen Beck Shi, TELECOMMUNICATIONS FIELD TECHNICIAN-C Name Value Range Interpretation Code Description Data Debbie rce(s) Supporting Document(s) ID Date Data Source [id number] 07/29/2020 10:49:51 AM EDT [facility] Name Value Range Interpretation Code Description Data Debbie rce(s) Supporting Document(s) CULTURE RESULTS [facility] SEE NOTE Specimen received and in progre ss. Performed by [facility], [address] [facility] [place] [address] [email or web address], Zina Pennington MD, Lab. legal practice manager STATUS [facility] SEE NOTE Culture negative for Legionella species Performed by [facility], [address] [facility] [address] [email or web address], Zina Pennington MD, Lab. Director ID Date Data Source [id number] 07/22/2020 09:17:50 AM EDT [facility] SPECIMEN DESCRIPTION SPUTUMGRAM S TAIN MODERATE (10 TO 25/LPF) WHITE BLOOD CELLS FEW (<10/LPF) EPITHELIAL CELLS NO BACTERIACULTURE RESULTS NORMAL RESPIRATORY BLESSING NO STAPHYLOCOCCUS AUREUS ISOLATED NO PSEUDOMONAS AERUGINOSA ISOLATED.REPORT STATUS FINAL 07/22/2020 Name Value Range Interpretation Code Description Data Debbie rce(s) Supporting Document(s) ID Date Data Source [id number] 07/20/2020 03:50:49 PM EDT [facility] Name Value Range Interpretation Code Description Data Debbie rce(s) Supporting Document(s) PT 16.6 s (9.2-11.9) H [facility] PERFORMED AT [address] [place] [address] [address] [address] INR 1.63 [facility] SUGGESTED THERAPEUTIC RANGES USING INR F ORSTABILIZED ANTICOAGULATED PATIENTS:STANDARD DOSE THERAPY INR 2.0-3.0 DVT, PE, PREVENT DVT OR EMBOLISMHIGH DOSE THERAPY INR 2.5-3.5 PREVENT EMBOLISM FROM MECHANICAL HEART VALVE ID Date Data Source [id number] 07/20/2020 01:26:43 PM EDT [facility] Name Value Range Interpretation Code Description Data Debbie rce(s) Supporting Document(s) &PDF [facility] CDOUWx6aZvEWHfTo38/IOCraYGDln0YtQBqeUTx9UIlgUYFtU9VsnCpxXHNBMHQBTrqGLCbAGR3XDVBE 0b3 [file] AgICAgICAgICAgICAgICAgICAgICAgICAgICAgICAg ICAgICAgICAgICAgICAgICAgICAgICAgICAgICAgICAgDQogICAgICAgICAgICAgICAgICAgICAgICAg ICAgICAgICAgICAgICAgICAgICAgICAgICAgICAgICAgICAgICAgICAgICAgICAgICAgICAgICAgICAg ICAgICAgICAgICAgICAgDQogICAgICAgICAgICAgIC AgICAgICAgICAgICAgICAgICAgICAgICAgICAgICAgICAgICAgICAgICAgICAgICAgICAgICAgICAgIC AgICAgICAgICAgICAgICAgICAgICAgICAgDQogICAgICAgICAgICAgICAgICAgICAgICAgICAgICAgIC AgICAgICAgICAgICAgICAgICAgICAgICAgICAgICAg ICAgICAgICAgICAgICAgICAgICAgICAgICAgICAgICAgICAgDQogICAgICAgICAgICAgICAgICAgICAg ICAgICAgICAgICAgICAgICAgICAgICAgICAgICAgICAgICAgICAgICAgICAgICAgICAgICAgICAgICAg ICAgICAgICAgICAgICAgICAgDQogICAgICAgICAgIC AgICAgICAgICAgICAgICAgICAgICAgICAgICAgICAgICAgICAgICAgICAgICAgICAgICAgICAgICAgIC AgICAgICAgICAgICAgICAgICAgICAgICAgICAgDQogICAgICAgICAgICAgICAgICAgICAgICAgICAgIC AgICAgICAgICAgICAgICAgICAgICAgICAgICAgICAg ICAgICAgICAgICAgICAgICAgICAgICAgICAgICAgICAgICAgICAgDQogICAgICAgICAgICAgICAgICAg ICAgICAgICAgICAgICAgICAgICAgICAgICAgICAgICAgICAgICAgICAgICAgICAgICAgICAgICAgICAg ICAgICAgICAgICAgICAgICAgICAgDQogICAgICAgIC AgICAgICAgICAgICAgICAgICAgICAgICAgICAgICAgICAgICAgICAgICAgICAgICAgICAgICAgICAgIC AgICAgICAgICAgICAgICAgICAgICAgICAgICAgICAgDQogICAgICAgICAgICAgICAgICAgICAgICAgIC AgICAgICAgICAgICAgICAgICAgICAgICAgICAgICAg QEIeNWQjFAZdDUDkWFFkVJDjUMSyJLEpGIUjQTNbIOMzQCGqCBMzMXYxESl5S8akMXYaXKLcLU3oVWu2 Jz8+CYcQQpHkNMW8irAobD6FVR3wv2OaQEunIQLur4ZrLLg7YQ2AHLInXVorQK8SFYyedt2CBCJoUHYr hALIh8zuZwGhMPQ6ICQoTlhyXB8DZCSmI8eiubOoFR HnCSKWJByySLORDOtaINPJSJ5OIeTtP3CrpH37JBYPDb7+BCcpljMmSptVJdF7WYJyc9VdTRs8GX6KXM EoCOcyIM1UPIEelG3wCLemNJ9SPhInJkUlCBROBhGeI23ykCBmLYv0Q0MhUnBeWVYsFnwuVDBeHUwiLq FtZXMgWyBdDQogID4+ID4+PJoiMK8KDXjjxoYeSVUl Gk0BENUoBQS8WXLbyEDjBadcNLKLGIueGG4FaGPeSTM0vL7gHUorPPOvWIXrO5gTEuHqfMkvXI94pXqf bnVsbCBdDQo+Uz7KVL4pu3GqNMb4hrHxGTruEVD1TVdgNHHmSNJjKGVwREW4AXP0EOGKTpQuQGDlNGJt IYlzEDQzRPQtdb5JSYWtWMNdArYbWgNzYUXlLUFoVE gwPDVfALF6QOlrAATeKDMbPW4AHwFpZIBvLRTuIWHhLOXuKDVihp5MXUJbFDGiDrW8CSShVSVhUSLxSU pnPHQuWQPtARLjMTBqZBYxXG5LOoXhHDMvTKT9UCCnSYDlTHQhrh4DSGUxUHZnWdB6VRFhSXGwPRDbHI qgEYVcPBX7Ohw6IIPaHCUnPE0GDgXhGDDyDRb5TOYk TIBgHQPvtt3AXJEvIILjOEa7PVReSMCmQDGaOUruYOUeHWJ5GWH1XGNxUVItIS3XZdHbWNVjBPzrVhFl QBNmTPEgpj0VFUMcITWhGKI8NKJlYMPeMJLqPNdvCLUxHBKeUvhtMKMkOHOfKT8NEaDmAPAnMYV7TRUc UKQcNKMvzg5IUBJaGCNyYWMmOlPwOYYsXCGtJIleNI UyGQD7CzAkQRKdPWDiWQ5OQnAhFWSxEHJ2HuVkOEZhMMNyyw3WWYJhQLWnIeJdJNKqCZHdOAYwNLumUA ViIBH3NoSsBUMrDWNcRD5PLdScORNbQGgqHVRrWATrGCXcln7XIEBoSATeOoR3YCObGUFjFHJxHVrhMR DoDCS1TmKwIJMwHFIgVU5HOfQwJDKsYpH9PtxxNVAy JKMrsc9JMBKvPOSxNxM0ZOWgKPNzCQFlDKlvTMJcGNH6ITHdSTDfXYOxQJ1IVpMeOBQyHyv0HVMdHVCy RSOuht0WiFEwaYbcwh9GOOaGJw6AfEbcKDH9LHpoJp9ikKYmQMDlHNEWSh8DziDlICPlCFMKPQnaUQSc XGt9AKA7D1WwDuTuVPF0JFRuD5FxIyA9RaEaJcYnLw HqDaW0IvI1PKX1V3C2HpOiBls8VSK6XQShSRwpKMF1W3LwPxN+LL4gMTg+Wu7Cz3LlrfX0duKxCMhrNA V7FB1VACBOQ9WEIh== ID Date Data Source [id number] 07/20/2020 01:18:24 PM EDT [facility] Name Value Range Interpretation Code Description Data Debbie rce(s) Supporting Document(s) EKG [facility] RMSMXe9xToHRLhHyz2LrHuGkEZRiSC8atjq2Z4F4qMHaW3UwyYAwh4ukG2DqE0MfKXYqXWAATM8GjRWj jb2 [file] nqo2gd4nGG7BYNogb7ma3Et3U+YE+zQ/irarXETsOZ2y+PATIENT FINANCIAL SERVICES MANAGER+Y/FZ+5//mLjyW3u///4f//rzl/U//99f T8Hz35//nBf/91//6R9//S//+K9/qpc///i//vpf//GXPbcZSst/HMXf//23//xX7+WPxfPPv/7syz6e f//+89//slZFB7B2EyXclVblVwMJYhemE4CRdt5BAy V+Z2YnxejFBGbmRrx3zl39iBLB6pxKWMmshkd5c+61smQE15f9oRfygyk1h+88ajOX99b6mMkecpf2z+ 54svJU95GMbKr132YwYzRaO3B27pfxZbgU56DBjAo805XrFqApI6Y09rmhVcxL00U1fRm512RrKw0tV6 L7hmoqFelK5tE0wDy376HwTm9nF1K6ajgjRwpZ9hZ2 aVe/78IhCv3uS9y77iwlZhcR11w5TfBvIrdLz5fBfC26tsbRahJ0MEAtgoruMm2Oo07u2Br0IMQakgms Fk6GUfCxFW5wFzlL0S1XwMat7LcJvlF1c7q3yn6fKq1ny7tNcAvw0JlCfxL2g7q0nrsvXmBbyi8s61kc UgSs541PzHaBs27C5tEerf6z89poJfHa882VwZbOn6 1T2jU/u9nKO8i7yjFd5q7z2w51r8gPq8xioiKiTtq7umHm2a7w4w50i7bWu0woysWpRu84+LbTFiAd9m m7dFqtscVo+odKUftn5uknh47E7TKRJ27tb9yDXwuRh15bSZSyNf05Vf9Aq/IHTgeh696ZHbv7MFwb1q CPNkmy17fswhcJM8dwcm90etkuJ1/O8WXci4mx6wQY b11dg7w5kNKqQof6VfdAwI56S4HUaI1+ialzYh/zbAB3xL2/Vfay2VcQYZYT6LXmrRwrVo0y5pJXecmz aao4HDMKZ2L+ktsme6Xzf5ZQUpYSc0HujZrHDcF4Dczqz7y0XqjiXfpwAdf9EujDs115I2HNyS8+i6nz Yh/ojcO6qB//FkiS2FxKYGWm3KKAmGef8ySuOK4I7/ 0iolNOq6utA8JvW7aCqiUQQ5AbjokIcfT6iXcd5Jo5ECtodQgyQqq7CoVobL40KpPLgyJ0JbY8ktfoD+ fZKx0MpZjrT//Q8WYzu0ri6sCQd2sqlJWy8+XCyfs07KZSUL08cTiido51kL4NR6x+2k4gp6Wxy1nO6n HCr9Yb4ooQ6cS6izly5Hv3Qrawv2okD/p9Biucq032 N3Lrly8sf2v2Su//m5RQls9WIOpM0hxZEzPL8IGXvsdQ1rGLGB9x+0fZhn1KpBvqR9oLIj6FrGevD5/I 1R/yjz/k6g/8na1k2Oh07a+5+kP+8Ydc/SH/+EOu/pB//CFXf8g//pCrP+Bxo9hKW/KPP+TqD/nHH3L1 h/ueF6m3M/0xd0r6Pp/4Q67+kH/8IVd/yD/+kKs/5N /5eZaT9ktPb38P/Cr3nzyN6iRJz4cas76fjaQ4i7wtcOolTr82YmTarhd4pv6+kKs/5B9/rIOc6m0/5O oP+ccfcvWH/OMPufpD/mVJRS0a//nFzr4Cg/whV3/IP/6Qqz/kH3/I1R/yjz/k6g/4ei0r7Rv35b+5+k P+8Ydc/SH/+EOu/pB//CFXf8g//pCrP+Fbm3rNX/KP P+TqD/hSC7N1q/jaJ0f7S/6zd1d3Nu/4Q67+kH/8IVd/yD/+kKs/5B9/hKZd4t4/5OoP+ccfcvWH/OMP ufpD/wKIOM1s//uRef5Fp/whV3/IP/6Qqz/kH3/I1R/yjz/UftJgkafwlkwtmVqytGRJyUbBLNnCW+Ja 0lfVqvTtCrTFytLiP3hTvQpv4+VpGha6yOuMzW4G79 N1YFKkF7S6LmjNkH1S89R1WMKlU2L2TzgHgK0F00Y9GCBjB4K9EruRsO0S54C1XV5r72K6VkvVyK0Q19 M0QZ0f35Y9AifLkD4Z46C5AI9c58D1GtlDmZ3x79U6AA1f16W1CltTfE1u56UZrN7e2acziw6b6u7G8f M3D4T8lt4GgA6as8QoS2rg2BzLjiu0WwOlOF0AhNpV 1jVeguKqDycagc0O3j1t9RyibsUzAjgsap6A3p7l6EcctqWkWspimz9P8q9f3Ewfpurwihabrc9S6r6h 5Esvejubiegiac9Y7x9t7Yqmaegitbeguu5C6h4k2OicikWkVcboap7F0x7g3RctddElBjjnze5W3u4k 7EeeZvshe5UVSDuXV2O+puJdmN3y4GjiK3b/yvpVdk 5b6LxobdJ1ytr5Vxj0Bs377vU+u9pnV/nwin5p2hIjiEa5a2762jB+z1t6pa0280N6W4m1pMuNn/9glw Izwmcmawbxqw1exnEqkjnptwkaxn6uzqTqkwnsftokcw7awiLobgwcwceffu7sw8Xar3rgw9rlm27lz5 [file] O3nvaW63Sdfn/C0NIsYyr0OJa1yDEaq9Nl384H+3cFveLOWkGvLhzf+bE8qQc1A6ToE/2Vnmeead/Verónica [file] U7EKlDuDPp3RQ0gST5gc0x5nj2b6hgJv2/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/1+5// 590/ngE57WI/Vx4j2o47eJnx485Hrk2f/fPa+B9+ev9x/RG3+ME3KYZh/oQif372+74ln3sYXhnjdkfn 48PIU7ML63tKpgh89wTh80g177LvP4m47Gxa+rJcaz3Ccy1hjv67+9/vf/g0F8YTSMfwZlkla6u8WT/r N2W4k59+/fVnYcr7WyNSl//0SDA7J6js2d2i90f//P Du/b8/P/do1bcuqvv56/Uzca8JYPT4bY/jKlc1fAyMdqQ8++333/79/Q/fXn/e1hPH3PicKYnGYCR/+f N3ml64zXXlg2QnrUY+r9/76itOyyoru1tJBGoVHn28dD7b51aK4fyyq/yrwm1r4i6kNQ3LogvDzH/w+J bV/je42rdrk0a1ist4xz9jHj3mfFLle/r/BxVLrTIK JI4kg6PmEGSoLwLuOT5bwkkqDFShYL8wrlk8B0JfuYrnCDuOJAHaCd7ibHDfPR1QYHX1CDuiXGJlJUAt P8ZbdK4qS34caWVyTgLtRJIBYQ7IkcK4RGT0PNJ6ZEVfQbOyQBZlTL58HNQlXOFTBh4tgzBaIxrZZwHj EX3euwa2R0Y0aCGeQ293tVyvncZvZC0Bo0QwnXRdCW 1UvMAleSMtNTQbDRTiY4kvk7UxGPucDZWJOw3zehGsIhyNDvDjQC3mugz7X6W2aApyziQxJJSGGYdvDc bqHO1bdKziftgsN4FfdQTeJTZoG4QxNUSpj06HFDKqJZgTCuYuKlStPTZ6UVIcUKutUfCyDLLgEVMuSU CiSV2GbGYhJCCdQOYKKUkhNicxQJIatT9ypSRWd0Oj Q43PTAKEFWFESBsCLE9GALXnMRZzBCNxBRUjQK8NkUZxMVQ1VPfAHMWSBShDAKvwQfLxh7A7WKOcO5Se NIIexgPwTVIHVEnbIjjhRD7hmAmnopphK9EsaAKnLYFJTNUpMNIzAIOyJVQhO9Qvz7X3U1SgIJoKDNPQ REmDVCapTqO2j51mtcZJNFNwVSKhGY5+ON0lp0SoUe 4GPVObPM5uvbc4MR3YyMXlEJ6SYKdhfwVhS1vzbuIoRfKeWELQJF9wW2UasR97EHM+HxDtWN5sfbu6gy MgAvCmVXJiHGOzLJQqLOguKHRxLDPdOIElKLQ8COO6PQNzMgZaOYAxCjZsLejqMNPgSVYwxyIKIHYgSY T7VFurCVZdEZEuHZAhMGykQWLiCKYsWPp7LZFxDDFg PV7vBfKmHNKnPCVmUNTeUaV2HqNeFxTYHKMsYUFoQODjBsBrVBDvEVRwXSleBIUtQLJmVDq4UBHbFYFu OV9cYiTtBLWfQDDsDFVqQQLuGNQihsXODZObOLPdDWC7PNAgMXXhWZTiNAmiUOMlPVZlXCV2NNSyJRXh VO1uLlGvQRWqQWU4HbCxJRIzQRLarvVWANHyQVQiQJ D5UMUwBPIhAISjBKubUAHpWPKnRbL2VANvHBTbDS7ySqJxHGEoFUP8YVTtRMYgEFEvxeJYGMHpRQRaJO q0NzHySIYgRRQwFXcgXBDcDEEeORtaUSKiWKRfYM2tEiGwDYRwDAArYKAyNLZlJHXvraLZVESqUBMzIF U9HaDsEVFdSJQwXGwnIHMeWHAmHWT4NMGzPBGqVE8h XwHfJLTxUnY7ZtpjZZTnMGAleiQLEHQrULQoUICvKGWeXZBlPDAaZKvaXYBvREUxPwG9IEBySZQxAO2y QbGfOQDpYSV1TJAaXRMhJQBwboGSINQaULRcJJSiUGN9ZHHjRPUwIEk3lhXmtZEyFvi0Me5UxYuyJUT1 Jx1GhmPaDKQfLZBCVq1Qd173ZWMmAIJKJyj+NmgfsWBzkHufZOFPSgKdYbTOZGIMH9K= ID Date Data Source [id number] 07/20/2020 01:12:29 PM EDT [address] [address] Name: KENDRA GREENB: 1935Sex: MOrdering Provider: RENETTA GUZMANAuthorizing Prov: RENETTA GUZMANReferrfarideh Provider: Procedure Performed: XR CHEST PORTABLEExam Date: 07/20/2020 13:07MRN: [id number] Number: [id number] Class: OutpatientAccount #: [id number] for Exam: CHFTechnique: AP portable view obtained.Comparison: NoneFindings: Advanced interstitial lung disease most likely representing acute pulmonary edema. Small pleural effusions. Calcification thoracic aorta. Mediastinum otherwise unremarkable.IMPRESSION: Advanced interstitial lung disease most likely representing advanced pulmonary edema. Small bilateral pleural effusions. Findings most likely secondary to acute CHF.Report electronically signed by: NILE SILVA On 07/20/2020 1:12 PMWorkstation ID: [id number] Name Value Range Interpretation Code Description Data Debbie rce(s) Supporting Document(s) ID Date Data Source [id number] 07/20/2020 02:06:45 PM EDT [facility] Name Value Range Interpretation Code Description Data Debbie rce(s) Supporting Document(s) TROPONIN I <0.05 ng/mL (<0.05) [facility] Less than 0.05: Myocardial injury unlike lyGreater than or equal to 0.05: Highly suggestive of myocardial injuryCorrelation with rise and/or fall ofserial troponins, clinical symptomsand ECG changes is necessary. ID Date Data Source [id number] 07/20/2020 02:02:06 PM EDT [facility] Name Value Range Interpretation Code Description Data Debbie rce(s) Supporting Document(s) SODIUM 145 mmol/L (136-145) [facility] POTASSIUM 4.3 mmol/L (3.6-5.2) [facility] CHLORIDE 113 mmol/L (100-108) H [facility] CO2 26 mmol/L (22-31) [facility] ANION GAP 6 mmol/L (7-16) L [facility] UREA NITROGEN 19 mg/dL (7-24) [facility] CREATININE 1.02 mg/dL (0.80-1.30) [facility] BUN/CREAT RATIO 18.6 RATIO (10.0-20.0) [facility] GLUCOSE 124 mg/dL (70-99) H [facility] CALCIUM 9.2 mg/dL (8.4-10.2) [facility] GFR >60 ml/min/1.73m2 (>59) [facility] GFR ( AMER) >60 ml/min/1.73m2 (>59) [facility] GFR INTERPRETATION [facility] --NORMAL KIDNEY FUNCTION OR MILD DISEASE - GFR >OR= 60CHRONIC KIDNEY DISEASE - GFR 15 - 59RENAL FAILURE - GFR <15 Est. GFR calculation based on the MDRDstudy equation, which assumes a steadystate for creatinine. Est. GFR should notbe used for medication dosing. ID Date Data Source [id number] 07/20/2020 01:16:04 PM EDT [facility] Name Value Range Interpretation Code Description Data Debbie rce(s) Supporting Document(s) WBC 12.7 10*3/uL (4.1-11.0) H [facility] RBC 5.03 10*6/uL (4.60-6.10) [facility] HGB 14.7 g/dL (13.5-18.0) [facility] HCT 43.8 % (41.0-53.0) [facility] PERFORMED AT [address] [place] [address] [place] [address] MCV 87.1 fL (80.0-95.0) [facility] MCH 29.2 pg (27.0-32.0) [facility] MCHC 33.5 g/dL (32.0-36.0) [facility] RDW 14.9 % (10.5-14.5) H [facility] PLT 279 10*3/uL (150-450) [facility] MPV 9.8 fL (7.1-10.7) [facility] NEUT % 81.0 % (35.0-75.0) H [facility] LYMPH % 11.4 % (16.0-52.0) L [facility] MONO % 5.1 % (0.0-8.0) [facility] EOS % 1.4 % (0.0-5.0) [facility] BASO % 1.1 % (0.0-4.0) [facility] NEUT # 10.3 10*3/uL (1.8-7.7) [facility] [place] LYMPH # 1.5 10*3/uL (1.2-4.8) [facility] MONO # 0.6 10*3/uL (0.0-0.8) [facility] Eosinophils [#/volume] in Blood by Automated count 0.2 10*3/uL (0.0-0 .5) [facility] BASO # 0.1 10*3/uL (0.0-0.2) [facility] ID Date Data Source [id number] 07/20/2020 12:03:33 PM EDT [facility]PATIE NT INFORMATIONPatient MRN Name Date of Age Gend*PT [id number] Kendra Muro 1935 84 years M HOP Location Admission Date/Time Visit ID Attending Provider07/20/20 0738 --- Renetta Guzman MD([id number]) EPI ID CSN Admitting Provider [id number] Renetta Guzman MD([id number])84-year-old man referred for right and left heart catheterization because ofshortness of breath and aortic stenosis.The patient has a history of coronary artery disease post bare-metal stent tothe left circumflex remotely. He has COPD. He is short of breath during coldweather and when he is exerting himself. An echocardiogram has been donerecently and showed mild left ventricular systolic dysfunction and aorticstenosis with a mean gradient in the mid 30s but with an area below 1. He wassuspected to have severe aortic stenosis and was referred for right and leftheart catheterization for further evaluation. His creatinine is 1.5 and he wasreferred for preoperative hydration.The patient denies orthopnea or PND's. He does not have angina. Did not haveany history of syncope recently. 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 He takes also a low-dose aspirin and hecomplains of superficial bruising.At this time the patient seems short of breath at rest but he tells me itsbecause he is scared and worried about the procedure.BP 159/89 (BP Location: Left upper arm, Patient Position: Lying) | Pulse 82 |Temp 97.5 F (Oral) | Ht 1.6 m (5' 3") | Wt 71.8 kg (158 lb 4.6 oz) | LiT942% | BMI 28.04 kg/m Jugular venous pressure is difficult to assess because of the use of accessorymuscles. There is no carotid bruit. Lungs with decreased breath soundsdiffusely and scattered wheezes. Heart sounds are normal S1 and perceived S2with positive S3 and 1 out of 6 to 2 out of 6 systolic ejection murmur. Bowelsounds are decreased. There is 1-2+ bipedal edema.Creatinine is 1.5.Assessment and plan.84-year-old man with history of coronary artery disease and finding of aorticstenosis. He is short of breath at rest at this time. Right and left heartcatheterization was requested for further assessment of his aortic stenosis.Radial and antecubital venous access planned. Risks and benefits of theprocedure were explained and he agrees to proceed. Name Value Range Interpretation Code Description Data Debbie rce(s) Supporting Document(s) ID Date Data Source [id number] 07/20/2020 08:52:27 AM EDT [facility] Name Value Range Interpretation Code Description Data Debbie rce(s) Supporting Document(s) EKG [facility] INBOZq7tFfACSqGzw7PxYcLpGIRnHU7vyob7Y6V4oUYpI5HooTCdd3grO2GaZ2AxHAExPYOIVL0CbKYm jb2 [file] vckzZyroZolxaoLA5YSBhcLtsojoTMIzmxzqND6a46 xF635DJalAm9vLNhWGKHPUi0gRwjoZz6JS7QFuwE8D24iNpAFegxqUj6d8vL+1KVvBNSbNcUL4YWLZrr dQgJdtwOjXJwUwbfsnffysPiV5HaIsYIvC9hHtAirTC+Vd2C7ZGjYrX0bUOdIYuChlBuUUZhnuwitOy9 qMsxizvKtB/Wvl8/k0ksCDh+b35yU6DiU4wGYTfVDy rrUQwr5wy0CJRAk/foEvpQiJ5g+zdGidSAT2sto4IgJuZaR8SnHTGUxVKye1ZsWmJzrmRawY6qODLvta DwokBgFZZUVFAOPWm4ydrOdTijve4oGm1X16kwxZgSx8Ri6j7VR7QR9nJSXSPF9MvvnabearP8ttXQZr M6hkWggcZWMWAyLHyekmTOrFzFvRw0B7NhrA3EGnba g41Dxg/Q49uXAEfDnfvtxKiGZZyR/j8U4QYRvSHcYosqsxY5Cg9G4gE7E7kyfm2QG4jhY2nmEeWo7x7l 8xJ3zkFkRO9QTnp8ob/oPWwazh5Szy5aezKdH7c/97eHr144qJAJu5L4QWm9KniSBgdsVfcavloKad/B 3AF1mlFhjIf3/38r8z08wocWOcMl/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/9uaCbxSN/n [file] olJUVPRg== ID Date Data Source [id number] 07/20/2020 08:30:33 AM EDT [facility] Name Value Range Interpretation Code Description Data Debbie rce(s) Supporting Document(s) POC PTINR 1.4 Lab [facility] SUGGESTED THERAPEUTIC RANGES USING INR F ORSTABILIZED ANTICOAGULATED PATIENTS:STANDARD DOSE THERAPY INR 2.0-3.0 DVT, PE, PREVENT DVT OR EMBOLISMHIGH DOSE THERAPY INR 2.5-3.5 PREVENT EMBOLISM FROM MECHANICAL HEART VALVEPERFORMED BY [facility] ID Date Data Source [id number] 07/17/2020 11:31:00 AM EDT [facility] Name Value Range Interpretation Code Description Data Debbie rce(s) Supporting Document(s) INR in Platelet poor plasma by Coagulation assay 3.2 [facility] ([facility] ID Date Data Source [id number] 07/15/2020 08:35:00 AM EDT [facility] ([facility] Name Value Range Interpretation Code Description Data Debbie rce(s) Supporting Document(s) Coronavirus 2019 Nasopharygeal Laboratory test result [facility]) ASSAY INFORMATION: Real Time RT-PCR NOTE: The COVID-19 assay has been cleared by the U.S. Food and Drug Administration under the Emergency Use Authorization (EUA). [facility] and [facility] are designated as high complexity laboratories by the Clinical Laboratory Improvement Amendments of 1988(CLIA) and are qualified to perform this test. Not Detected ID Date Data Source [id number] 07/15/2020 08:35:00 AM EDT [facility] Name Value Range Interpretation Code Description Data Debbie rce(s) Supporting Document(s) SARS-CoV-2 (COVID-19) RNA [Presence] in Respiratory specimen by MAGDY with probe detection Not Detected [facility] This lab was ordered by [facility] and reported by [employer] ID Date Data Source [id number] 07/04/2020 09:26:00 AM EDT [facility] ([facility] Name Value Range Interpretation Code Description Data Debbie rce(s) Supporting Document(s) INR in Platelet poor plasma by Coagulation assay 2.6 [facility] ([facility] ID Date Data Source [id number] 07/04/2020 07:52:00 AM EDT [facility] Name Value Range Interpretation Code Description Data Debbie rce(s) Supporting Document(s) Glucose [Mass/volume] in Serum or Plasma 106 mg/dL 74-99 [facility] ([facility]) 100-125 mg/dL PRE-DIABETES/FASTING >126 mg/dL DIABETES/FASTING Urea nitrogen [Mass/volume] in Serum or Plasma 25 mg/dL 7-18 [facility] ([facility]) Creatinine 1.5 mg/dL 0.6-1.3 [facility] ([facility]) Sodium [Moles/volume] in Serum or Plasma 144 meq/L 136-145 [facility] ([facility]) Potassium [Moles/volume] in Serum or Plasma 4.5 meq/L 3.5-5.1 [facility] ([facility]) Chloride [Moles/volume] in Serum or Plasma 108 meq/L 98-107 [facility] ([facility]) Carbon dioxide, total [Moles/volume] in Serum or Plasma 26 meq/L 21 -32 [facility] ([facility]) Glomerular filtration rate/1.73 sq M pre dicted among blacks [Volume Rate/Area] in Serum or Plasma by Creatinine-based formula (MDRD) 54 mL/min [facility] ([facility]) <content>CHRONIC KIDNEY DISEASE STAGING PER NKF</content>
<content></content>
<content>STAGE I & II GFR >= 60 NORMAL TO MILDLY DECREASED</content>
<content>STAGE III GFR 30-59 MODERATELY DECREASED</content>
<content>STAGE IV GFR 15-29 SEVERELY DECREASED</content>
<content>STAGE V GFR <15 VERY LITTLE GFR LEFT</content>
<content>ESRD GFR <15 ON LEAD SUPPLY WORKER</content>
<content></content> Calcium [Mass/volume] in Serum or Plasma 9.2 mg/dL 8.5-10.1 [facility] ([facility] Glomerular filtration rate/1.73 sq M pre dicted among non-blacks [Volume Rate/Area] in Serum or Plasma by Creatinine-based formula (MDRD) 45 mL/min [facility] ([facility]) ID Date Data Source [id number] 07/04/2020 07:52:00 AM EDT [facility] ([facility]) Name Value Range Interpretation Code Description Data Debbie rce(s) Supporting Document(s) Erythrocytes [#/volume] in Blood by Automated count 4.90 x10*6/UL 4.2 0-6.30 [facility] ([facility]) Leukocytes [#/volume] in Blood by Automated count 11.9 x10*3/UL 4.1-1 0.9 [facility] ([facility]) NOTE: RESULT VERIFIED. Hemoglobin [Mass/volume] in Blood 14.3 g/dL 12.0-18.0 [facility] ([facility]) Hematocrit [Volume Fraction] of Blood by Automated count 43.3 % 3 7.0-51.0 [facility] ([facility]) MCV 88.4 fL 80.0-97.0 [facility] ([facility]) MCHC 33.1 g/dL 31.0-38.0 [facility] ([facility]) MCH 29.3 pg 26.0-32.0 [facility] ([facility]) Erythrocyte distribution width [Ratio] by Automated count 13.6 % 11.6-13.7 [facility] ([facility]) MPV 9.6 FL 7.8-11.0 [facility] ([facility]) Platelets [#/volume] in Blood by Automated count 264 x10*3/UL 140-440 [facility] ([facility]) Mid % 4.6 % 1.7-9.3 [facility] ([facility]) Lymph % 12.8 % 10.0-58.5 [facility] ([facility]) Mid # 0.6 x10*3/UL 0.1-0.6 [facility] ([facility]) Neut % 82.6 % 37.0-92.0 [facility] ([facility]) Lymph # 1.5 x10*3/UL 0.6-4.1 [facility] ([facility]) Neut # 9.8 x10*3/UL 2.0-7.8 [facility] ([facility]) ID Date Data Source [id number] 06/23/2020 04:13:18 PM EDT [facility] Name Value Range Interpretation Code Description Data Debbie rce(s) Supporting Document(s) &PDF [facility] ZAMESu5cQvTZRbSw70/VHHzkMCVoo0DpJIgcJUj7WVlaKFXoM0AuuBokCNRFELJLRqjIOJgEHY0JRENA vci rHgGelEOE4f3AiaMOzN60moG5dDQShu01hWTwcXL5+DQplbmRvYmoNCjQgMCBvYmoNCiAgPDwvRmlsdG TxVU9EfTL7OQHbM94kOQRdLDEoW0HyILKdEqQ+Hk3JGICzvIHaDE5WTpyD8C5lucNHDd7/6k2UExNujY V9tm0CERLENJkRZEDM1Xy7XbfnvRVXZSPfSD2mh0So [file] 5YtyLE0dN2sC0iLBZAqTiVOqZ3ChIggZUeeM0EDBgZIThj4Cp/cWFf5NT4btDJs4YMs8/machine hoop maker/IX7KFLJV [file] AgICAgICAgICAgICAgICAgICAgICAgICAgICAgICAgICAgICAgICAgICAgICAgICAgICAgICAgICAgIC ANCiAgICAgICAgICAgICAgICAgICAgICAgICAgICAg ICAgICAgICAgICAgICAgICAgICAgICAgICAgICAgICAgICAgICAgICAgICAgICAgICAgICAgICAgICAg ICAgICAgICAgICANCiAgICAgICAgICAgICAgICAgICAgICAgICAgICAgICAgICAgICAgICAgICAgICAg ICAgICAgICAgICAgICAgICAgICAgICAgICAgICAgIC AgICAgICAgICAgICAgICAgICAgICANCiAgICAgICAgICAgICAgICAgICAgICAgICAgICAgICAgICAgIC AgICAgICAgICAgICAgICAgICAgICAgICAgICAgICAgICAgICAgICAgICAgICAgICAgICAgICAgICAgIC AgICANCiAgICAgICAgICAgICAgICAgICAgICAgICAg ICAgICAgICAgICAgICAgICAgICAgICAgICAgICAgICAgICAgICAgICAgICAgICAgICAgICAgICAgICAg ICAgICAgICAgICAgICANCiAgICAgICAgICAgICAgICAgICAgICAgICAgICAgICAgICAgICAgICAgICAg ICAgICAgICAgICAgICAgICAgICAgICAgICAgICAgIC AgICAgICAgICAgICAgICAgICAgICAgICANCiAgICAgICAgICAgICAgICAgICAgICAgICAgICAgICAgIC AgICAgICAgICAgICAgICAgICAgICAgICAgICAgICAgICAgICAgICAgICAgICAgICAgICAgICAgICAgIC AgICAgICANCiAgICAgICAgICAgICAgICAgICAgICAg ICAgICAgICAgICAgICAgICAgICAgICAgICAgICAgICAgICAgICAgICAgICAgICAgICAgICAgICAgICAg ICAgICAgICAgICAgICAgICANCiAgICAgICAgICAgICAgICAgICAgICAgICAgICAgICAgICAgICAgICAg ICAgICAgICAgICAgICAgICAgICAgICAgICAgICAgIC AgICAgICAgICAgICAgICAgICAgICAgICAgICANCiAgICAgICAgICAgICAgICAgICAgICAgICAgICAgIC AgICAgICAgICAgICAgICAgICAgICAgICAgICAgICAgICAgICAgICAgICAgICAgICAgICAgICAgICAgIC AgICAgICAgICANCjw/xHNxP4nbzARspqC7H5rdUj8V Dx5PZO2az0YiEUKbAAjognYgWxiSWcQeJJXnGfnOFus6HXsmWV1RnUNhF9YrU8QmZVadQP5CQYPlLWTg wDVpEYYhSFLnImP0BZDcYNezEN2YpCHjEFnhKYAjSEIkXyVpHLIqFXQsECTtON5UEJHeL958edJzTt7K Mp7XKoJoRP9mre7BKylcRTMfGqcHMrj9QIxdSY1HpM FfH1RpbUNag6oJPhQfX5PKVOG8ZWTsHj6ATBSkEtLoJPFiFUngJA7dTOGnUQARjTveflN6EQ5NGA4ewr BbDR1CJoSaIq0xJd5ZLxBnS6OtA8YhPKFiDKNTUQucTS6XWSMgCLJ0TNQdRgOgGNOYVvFcZ51aPT1PS7 Nzw48oRfP0WZGdPgZyFYxsFR54tKynczRokSCxoSkz MG3XAo8+XFchuzDiXilKIepfPWTDZmVnHmsAYrYzSOKfWVCtEZGhUrB5CfGtWy9BUCNdIYEcBKCmSlTu BWNjZBSsNIcwPYPyVXW6InLfUOQpUOGmZM0GTzJdUQVzZuBnONaeAFGdIECvdr2WWPQcDDAgREU7HmMh TFFvMROcDFltDNXuCBLkKrT1PYKpZZJgAY0VAgAdGK LxCFE8WFTsCKOxVISrjx8BMIDoPOLvBxOhXXNyQWOrPBNwGXibJAAuEEJ6OUKfYHMeIRTdLK6MEwRrSJ SuYRa4HdAoVRVbJCZuji6SZLLpGGEbGuf2WRViETLeZUUlPHsdNYSuTSV7LGQ0TVEgKAFsQI3JMrOwTK HhUQevIpVhIDRsTDFwyf8GEZPpCGSeVCDnLBWcTHSx QZRjUVimHYRtCYPfQoh2IJMvCDBkAB5YNjGaYDGeDWK5GvhfJWMcSFUrhx6MLFUyMLQoERU8VxDjJQYl BUAiHSgkGTZkAOKtRiV8RYIdDOScTI2NNbAvMESnULY2QlBlTSDlESYtli2GTDAoLAUrXbQlXHDtPJUq CWMwADqtRNDiHQQ5SrTnTGJhJVGdLE4BPqKwBSHiIq U9EfTvNZLbQJWmir2JQLEtUYOgAqOtViLsKNQzNNAcIPbkFCLtROBjVuNwADPuPPImRW6RTeQyFNOdVp gkBwYfJVZwZEOezy0YJZXfLFVmSHmrVRHvQFTsQOMrZBwsQSYfFBY4WWL7UPUtLEDvHH9RStHcCHHgHy q7ZsKmVCNkWYZqow1YYWJvVDO8DVXaBgYrNZXeFLHv FGzzMNSoPLKoPLqyFPGdNDWfIT8BNiKyCEWdNYlzCeQrYAYaKDGqfh8PSLBdSTO3ZiW1ZoOqATHfEKNp HFstUNZsCGT9WER2SZNwHVRdZO4AYsCaZVSbPbBtDwNxCHYiZREowk5XBECkUPZ6MPVkIgRlWDEdIEWb BXgkOMVsCRM2Sfh0QVQlYSWuZD1KZbQhLZQbOez8Xj tnTILjHETyry1XCEDdVWC6LYLnZSCmKNEfCHEuEYh6znXxaQZhXJz7JY4YY5VocrFiYskIJu1Sa635QR V0WMNiUu4KS9uaYv6iFRLoBFMPTq4QTCw9YjL2QtF9EVMzDMCtMwAbE8DkUYP6VNu7F7K1YQN4SRC+ID buBYjiKxstHUF3SZWtBJCyIpMxJodaKWVhNqLdMzeo Tp1zEJZRCa1+GJexrBSpfQueWHBQUjmgPsZ0YQqhWKTFRq4V ID Date Data Source [id number] 05/29/2020 08:04:00 AM EST [facility] ([facility]) Name Value Range Interpretation Code Description Data Debbie rce(s) Supporting Document(s) INR in Platelet poor plasma by Coagulation assay 2.6 [facility]) ID Date Data Source [id number] 04/25/2020 08:07:00 AM EST [facility] ([facility]) Name Value Range Interpretation Code Description Data Debbie rce(s) Supporting Document(s) INR in Platelet poor plasma by Coagulation assay 2.1 [facility] ([facility]) ID Date Data Source [id number] 03/10/2020 10:38:00 AM EST [facility] ([facility]) Name Value Range Interpretation Code Description Data Debbie rce(s) Supporting Document(s) Thyrotropin [Units/volume] in Serum or Plasma by Detec tion limit <= 0.05 mIU/L 5.36 uIU/mL 0.36-3.74 [facility] ([facility] ) ID Date Data Source [id number] 03/10/2020 10:38:00 AM EST [facility] ([facility]) Name Value Range Interpretation Code Description Data Debbie rce(s) Supporting Document(s) Cholesterol in HDL [Mass/volume] in Serum or Plasma 57 mg/dL 35-60 [facility] ([facility]) Cholesterol [Mass/volume] in Serum or Plasma 177 mg/dL 131-200 [facility] ([facility]) Triglyceride [Mass/volume] in Serum or Plasma 89 mg/dL 30-150 [facility] ([facility]) Cholesterol in LDL [Mass/volume] in Serum or Plasma by calcu lation 102 CALC 50-159 [facility] ([facility]) ID Date Data Source [id number] 03/10/2020 10:38:00 AM EST [facility] ([facility] Name Value Range Interpretation Code Description Data Debbie rce(s) Supporting Document(s) Urea nitrogen [Mass/volume] in Serum or Plasma 25 mg/dL 7-18 [facility] ([facility]) Glucose [Mass/volume] in Serum or Plasma 87 mg/dL 74-99 [facility] ([facility]) 100-125 mg/dL PRE-DIABETES/FASTING >126 mg/dL DIABETES/FASTING Creatinine 1.1 mg/dL 0.6-1.3 [facility]) Sodium [Moles/volume] in Serum or Plasma 148 meq/L 136-145 [facility] ([facility]) NOTE: RESULT VERIFIED. Chloride [Moles/volume] in Serum or Plasma 109 meq/L 98-107 [facility] ([facility]) Potassium [Moles/volume] in Serum or Plasma 4.1 meq/L 3.5-5.1 [facility] ([facility]) Calcium [Mass/volume] in Serum or Plasma 9.1 mg/dL 8.5-10.1 [facility] ([facility]) Carbon dioxide, total [Moles/volume] in Serum or Plasma 30 meq/L 21 -32 [facility] ([facility]) Alkaline phosphatase isoenzyme [Units/volume] in Serum or Pl asma 113 mg/dL 46-116 [facility] ([facility]) Aspartate aminotransferase [Enzymatic activity/volume] in Serum or Plasma 20 U/L 15-37 [facility] ([facility] ) Total Bilirubin 0.7 mg/dL 0.2-1.0 [facility] ([facility]) Albumin [Mass/volume] in Serum or Plasma 3.8 g/dL 3.4-5.0 [facility] ([facility]) Alanine aminotransferase [Enzymatic activity/volume] in Seru m or Plasma 21 U/L 12-78 [facility] ([facility]) A/G Ratio 1.09 CALC 1.00-1.90 [facility] ([facility]) Proteinase 3 Ab [Units/volume] in Serum 7.3 g/dL 6.4-8.2 [facility] ([facility]) Glomerular filtration rate/1.73 sq M pre dicted among non-blacks [Volume Rate/Area] in Serum or Plasma by Creatinine-based formula (MDRD) Laboratory test result [facility] ([facility] ) Glomerular filtration rate/1.73 sq M pre dicted among blacks [Volume Rate/Area] in Serum or Plasma by Creatinine-based formula (MDRD) Laboratory test result [facility]) <content>CHRONIC KIDNEY DISEASE STAGING PER NKF</content>
<content></content>
<content>STAGE I & II GFR >= 60 NORMAL TO MILDLY DECREASED</content>
<content>STAGE III GFR 30-59 MODERATELY DECREASED</content>
<content>STAGE IV GFR 15-29 SEVERELY DECREASED</content>
<content>STAGE V GFR <15 VERY LITTLE GFR LEFT</content>
<content>ESRD GFR <15 ON LEAD SUPPLY WORKER</content>
<content></content> ID Date Data Source [id number] 03/10/2020 10:38:00 AM EST [facility] ([facility]) Name Value Range Interpretation Code Description Data Debbie rce(s) Supporting Document(s) Leukocytes [#/volume] in Blood by Automated count 10.7 x10*3/UL 4.1-1 0.9 [facility] ([facility]) Erythrocytes [#/volume] in Blood by Automated count 4.51 x10*6/UL 4.2 0-6.30 [facility] ([facility]) Hemoglobin [Mass/volume] in Blood 13.5 g/dL 12.0-18.0 [facility] ([facility]) Hematocrit [Volume Fraction] of Blood by Automated count 39.2 % 3 7.0-51.0 [facility] ([facility]) MCH 30.0 pg 26.0-32.0 [facility] ([facility]) MCHC 34.5 g/dL 31.0-38.0 [facility] ([facility]) MCV 86.9 fL 80.0-97.0 [facility] ([facility]) Erythrocyte distribution width [Ratio] by Automated count 13.6 % 11.6-13.7 [facility] ([facility]) Platelets [#/volume] in Blood by Automated count 250 x10*3/UL 140-440 [facility] ([facility]) MPV 9.9 FL 7.8-11.0 [facility] ([facility]) Mid % 4.8 % 1.7-9.3 [facility] ([facility]) Lymph % 16.4 % 10.0-58.5 [facility] ([facility]) Neut % 78.8 % 37.0-92.0 [facility] ([facility]) Lymph # 1.7 x10*3/UL 0.6-4.1 [facility] ([facility]) Neut # 8.4 x10*3/UL 2.0-7.8 [facility] ([facility]) Mid # 0.6 x10*3/UL 0.1-0.6 [facility] ([facility]) ID Date Data Source [id number] 03/10/2020 10:36:00 AM EST [facility] ([facility]) Name Value Range Interpretation Code Description Data Debbie rce(s) Supporting Document(s) INR in Platelet poor plasma by Coagulation assay 3.0 [facility] ([facility]) ID Date Data Source [id number] 01/31/2020 08:03:00 AM EST [facility] ([facility]) Name Value Range Interpretation Code Description Data Debbie rce(s) Supporting Document(s) INR in Platelet poor plasma by Coagulation assay 2.6 [facility] ([facility]) ID Date Data Source [id number] 12/29/2019 08:04:00 AM EDT [facility] ([facility]) Name Value Range Interpretation Code Description Data Debbie rce(s) Supporting Document(s) INR in Platelet poor plasma by [facility]agulation [facility] 3.0 [facility] ID Date Data Source [id number] 11/25/2019 07:52:00 AM EDT [facility] ([facility]) Name Value Range Interpretation Code Description Data Debbie rce(s) Supporting Document(s) INR in Platelet poor plasma by Coagulation assay 2.4 [facility] Procedure Social History Code Duration Value Status Description Data Source(s ) Alcohol intake 11/09/2020 12:00:00 AM EDT Ex-drinker (finding) comp leted Ex- drinker (finding) [facility] Alcohol intake 10/18/2020 12:00:00 AM EDT Ex-drinker (finding) comp leted Ex- drinker (finding) [facility] Alcohol intake 10/11/2020 12:00:00 AM EDT Ex-drinker (finding) comp leted Ex- drinker (finding) [facility] Alcohol intake 10/04/2020 12:00:00 AM EDT Ex-drinker (finding) comp leted Ex- drinker (finding) [facility] Alcohol intake 09/28/2020 12:00:00 AM EDT Ex-drinker (finding) comp leted Ex- drinker (finding) [facility] Smoking 09/04/2020 12:00:00 AM EDT Patient is a former smoker completed Patient is a former smoker [facility], [facility]) Alcohol intake 08/10/2020 12:00:00 AM EDT Ex-drinker (finding) comp leted Ex- drinker (finding) [facility] Alcohol intake 08/02/2020 12:00:00 AM EDT Ex-drinker (finding) comp leted Ex- drinker (finding) [facility] Alcohol intake 07/25/2020 12:00:00 AM EDT Ex-drinker (finding) comp leted Ex- drinker (finding) [facility] Alcohol intake 07/21/2020 12:00:00 AM EDT Ex-drinker (finding) comp leted Ex- drinker (finding) [facility] Tobacco use and exposure 07/20/2020 12:00:00 AM EDT Never used co mpleted Never used [facility] Cigarette pack-years 07/20/2020 12:00:00 AM EDT UNK completed [facility] Cigarettes smoked current (pack per day) - Reported 07/21/19 12:00:00 AM EDT UNK completed [facility] Smoking 07/20/2020 12:00:00 AM EDT Former smoker completed Former smoker [facility] Alcohol intake 07/20/2020 12:00:00 AM EDT Ex-drinker (finding) comp leted Ex- drinker (finding) [facility] Vital Signs ID Date Data Source [id number] Name Value Range Interpretation Code Description Data Source(s) Body weight 150.00 [lb_av] 150.00 [lb_av] [facility] ([facility]) Systolic blood pressure 128 mm[Hg] 128 mm[Hg] M [facility] ([facility]) Diastolic blood pressure 76 mm[Hg] 76 mm[Hg] [facility] ([facility]) Heart rate 78 /min 78 /min [facility] ([facility]) Body height 63 [in_i] 63 [in_i] [facility] ([facility]) 5'3" Body mass index (BMI) [Ratio] 26.6 kg/m2 26.6 k g/m2 [facility] ([facility]) Diastolic blood pressure 84 mm[Hg] 84 mm[Hg] [facility] ([facility]) Body weight 151.00 [lb_av] 151.00 [lb_av] [facility] T ([facility]) Heart rate 98 /min 98 /min [facility] ([facility]) Body height 63 [in_i] 63 [in_i] [facility]) 5'3" Oxygen saturation in Arterial blood by Pulse oximetry 96 % 96 % [facility] ([facility]) Body mass index (BMI) [Ratio] 26.7 kg/m2 26.7 k g/m2 [facility] ([facility]) Systolic blood pressure 122 mm[Hg] 122 mm[Hg] [facility] Body weight 156.00 [lb_av] 156.00 [lb_av] [facility] ([facility]) Systolic blood pressure 122 mm[Hg] 122 mm[Hg] [facility] ([facility]) Diastolic blood pressure 70 mm[Hg] 70 mm[Hg] [facility]) Heart rate 80 /min 80 /min [facility] ([facility]) Body height 63 [in_i] 63 [in_i] [facility] ([facility]) 5'3" Body weight 153.00 [lb_av] 153.00 [lb_av] [facility] T ([facility]) Oxygen saturation in Arterial blood by Pulse oximetry 91 % 91 % [facility]) Body mass index (BMI) [Ratio] 27.1 kg/m2 27.1 k g/m2 [facility] ([facility]) Heart rate 77 /min 77 /min [facility]) Body height 63 [in_i] 63 [in_i] [facility] ([facility]) 5'3" Body weight 155.00 [lb_av] 155.00 [lb_av] [facility] T ([facility]) Oxygen saturation in Arterial blood by Pulse oximetry 97 % 97 % [facility] ([facility]) Body mass index (BMI) [Ratio] 27.5 kg/m2 27.5 k g/m2 [facility] ([facility]) Systolic blood pressure 122 mm[Hg] 122 mm[Hg] M [facility] ([facility]) Diastolic blood pressure 80 mm[Hg] 80 mm[Hg] [facility] ([facility]) Diastolic blood pressure 110 mm[Hg] 110 mm[Hg] [facility] ([facility] [place], [facility]) Body height 63 [in_i] 63 [in_i] [facility] ([facility], [facility]) 5'3" Heart rate 100 /min 100 /min [facility] ([facility] [place], [facility]) Respiratory rate 22 /min 22 /min [facility] ( [facility] [place], [facility]) Oxygen saturation in Arterial blood by Pulse oximetry 96 % 96 % [facility] ([facility], [facility]) Body mass index (BMI) [Ratio] 31.4 kg/m2 31.4 k g/m2 [facility] ([facility], [facility]) Body temperature 97.9 [degF] 97.9 [degF] [facility] ([facility], [facility]) Body weight 177.00 [lb_av] 177.00 [lb_av] [facility] ([facility] [place], [facility]) Systolic blood pressure 170 mm[Hg] 170 mm[Hg] [facility] CENTER ([facility], [place], [facility]) Systolic blood pressure 120 mm[Hg] 120 mm[Hg] [facility] ([facility]) Oxygen saturation in Arterial blood by Pulse oximetry 93 % 93 % [facility] ([facility]) RM Air Diastolic blood pressure 60 mm[Hg] 60 mm[Hg] [facility]) Heart rate 102 /min 102 /min [facility] ([facility]) Body weight 156.00 [lb_av] 156.00 [lb_av] [facility] ([facility]) Body weight 158.00 [lb_av] 158.00 [lb_av] [facility]) Systolic blood pressure 128 mm[Hg] 128 mm[Hg] [facility] Diastolic blood pressure 64 mm[Hg] 64 mm[Hg] [facility] Heart rate 94 /min 94 /min [facility] Body height 160 cm 160 cm [facility] Body weight 74.844 kg 74.844 kg [facility] Body mass index (BMI) [Ratio] 29.23 kg/m2 29.23 kg/m2 [facility] Oxygen saturation in Arterial blood by Pulse oximetry 97 % 97 % [facility] Body weight 164.00 [lb_av] 164.00 [lb_av] [facility] ([facility]) Oxygen saturation in Arterial blood by Pulse oximetry 97 % 97 % [facility] ([facility]) Systolic blood pressure 126 mm[Hg] 126 mm[Hg] M [facility] ([facility]) Diastolic blood pressure 74 mm[Hg] 74 mm[Hg] [facility] ([facility]) Heart rate 94 /min 94 /min [facility] ([facility]) Systolic blood pressure 110 mm[Hg] 110 mm[Hg] [facility] Diastolic blood pressure 72 mm[Hg] 72 mm[Hg] [facility] Heart rate 80 /min 80 /min [facility] Body height 160 cm 160 cm [facility] Body weight 75.297 kg 75.297 kg [facility] Body mass index (BMI) [Ratio] 29.41 kg/m2 29.41 kg/m2 [facility] Oxygen saturation in Arterial blood by Pulse oximetry 99 % 99 % [facility] Systolic blood pressure 138 mm[Hg] 138 mm[Hg] [facility] Body temperature 36.89 Kimberley 36.89 Kimberley [facility] Diastolic blood pressure 66 mm[Hg] 66 mm[Hg] [facility] Heart rate 87 /min 87 /min [facility] Respiratory rate 34 /min 34 /min [facility] Oxygen saturation in Arterial blood by Pulse oximetry 95 % 95 % [facility] Body weight 74.6 kg 74.6 kg [facility] Body mass index (BMI) [Ratio] 29.13 kg/m2 29.13 kg/m2 [facility] Body height 160 cm 160 cm [facility] Systolic blood pressure 114 mm[Hg] 114 mm[Hg] [facility] Diastolic blood pressure 60 mm[Hg] 60 mm[Hg] [facility] Heart rate 72 /min 72 /min [facility] Body height 160 cm 160 cm [facility] Body weight 75.116 kg 75.116 kg [facility] Body mass index (BMI) [Ratio] 29.33 kg/m2 29.33 kg/m2 [facility] Oxygen saturation in Arterial blood by Pulse oximetry 97 % 97 % [facility] Systolic blood pressure 132 mm[Hg] 132 mm[Hg] [facility] Diastolic blood pressure 80 mm[Hg] 80 mm[Hg] [facility] Heart rate 96 /min 96 /min [facility] Body height 160 cm 160 cm [facility] Body weight 78.019 kg 78.019 kg [facility] Body mass index (BMI) [Ratio] 30.47 kg/m2 30.47 kg/m2 [facility] Oxygen saturation in Arterial blood by Pulse oximetry 94 % 94 % [facility] Body weight 172.00 [lb_av] 172.00 [lb_av] [facility] ([facility]) Systolic blood pressure 124 mm[Hg] 124 mm[Hg] M [facility] ([facility], [facility]) Diastolic blood pressure 72 mm[Hg] 72 mm[Hg] [facility] ([facility], [facility]) Heart rate 92 /min 92 /min [facility] ([facility], [facility]) Respiratory rate 20 /min 20 /min [facility] ( [facility], [facility]) Oxygen saturation in Arterial blood by Pulse oximetry 96 % 96 % [facility] ([facility], [place], [facility]) Body temperature 97.7 [degF] 97.7 [degF] [facility] ([facility], [facility]) Body weight 177.00 [lb_av] 177.00 [lb_av] [facility] ([facility], [facility]) Body weight 175.00 [lb_av] 175.00 [lb_av] [facility] ([facility]) Body temperature 98.9 [degF] 98.9 [degF] [facility] ([facility], [place], [facility]) Body weight 177.00 [lb_av] 177.00 [lb_av] [facility] ([facility], [place], [facility]) Oxygen saturation in Arterial blood by Pulse oximetry 88 % 88 % [facility] ([facility] [place], [facility]) Diastolic blood pressure 74 mm[Hg] 74 mm[Hg] [facility] ([facility], [place], [facility]) Heart rate 97 /min 97 /min [facility] ([facility] [place], [facility]) Respiratory rate 24 /min 24 /min [facility] ( [facility], [place], [facility]) Systolic blood pressure 136 mm[Hg] 136 mm[Hg] [facility] ([facility], [place], [facility]) Body weight 177.00 [lb_av] 177.00 [lb_av] [facility] ([facility]) Body weight 176.00 [lb_av] 176.00 [lb_av] [facility] ([facility]) Systolic blood pressure 150 mm[Hg] 150 mm[Hg] [facility] Diastolic blood pressure 84 mm[Hg] 84 mm[Hg] [facility] Heart rate 87 /min 87 /min [facility] Body weight 81.647 kg 81.647 kg [facility] Body mass index (BMI) [Ratio] 31.89 kg/m2 31.89 kg/m2 [facility] Oxygen saturation in Arterial blood by Pulse oximetry 96 % 96 % [facility] Diastolic blood pressure 60 mm[Hg] 60 mm[Hg] [facility] ([facility]) Systolic blood pressure 102 mm[Hg] 102 mm[Hg] [facility] ([facility]) Body weight 179.00 [lb_av] 179.00 [lb_av] [facility] ([facility]) Systolic blood pressure 142 mm[Hg] 142 mm[Hg] [facility] Diastolic blood pressure 82 mm[Hg] 82 mm[Hg] [facility] Heart rate 58 /min 58 /min [facility] Body temperature 36.61 Kimberley 36.61 Kimberley [facility] Respiratory rate 18 /min 18 /min [facility] Oxygen saturation in Arterial blood by Pulse oximetry 95 % 95 % [facility] Body height 160 cm 160 cm [facility] Body weight 79.4 kg 79.4 kg [facility] Body mass index (BMI) [Ratio] 31.01 kg/m2 31.01 kg/m2 [facility] Systolic blood pressure 110 mm[Hg] 110 mm[Hg] [facility] Diastolic blood pressure 60 mm[Hg] 60 mm[Hg] [facility] Heart rate 68 /min 68 /min [facility] Body height 160 cm 160 cm [facility] Body weight 80.74 kg 80.74 kg [facility] Body mass index (BMI) [Ratio] 31.53 kg/m2 31.53 kg/m2 [facility] Oxygen saturation in Arterial blood by Pulse oximetry 100 % 100 % [facility] Heart rate 77 /min 77 /min [facility] Respiratory rate 16 /min 16 /min [facility] Systolic blood pressure 138 mm[Hg] 138 mm[Hg] [facility] Diastolic blood pressure 70 mm[Hg] 70 mm[Hg] [facility] Body temperature 36.67 Kimberley 36.67 Kimberley [facility] Oxygen saturation in Arterial blood by Pulse oximetry 94 % 94 % [facility] Body weight 77.021 kg 77.021 kg [facility] Body mass index (BMI) [Ratio] 30.08 kg/m2 30.08 kg/m2 [facility] Body height 160 cm 160 cm [facility] Body weight 180.00 [lb_av] 180.00 [lb_av] [facility] ([facility]) Body weight 180.00 [lb_av] 180.00 [lb_av] [facility] ([facility]) Body weight 185.00 [lb_av] 185.00 [lb_av] [facility] ([facility]) Body weight 184.00 [lb_av] 184.00 [lb_av] [facility] ([facility]) Systolic blood pressure 112 mm[Hg] 112 mm[Hg] [facility] Body height 63 [in_i] 63 [in_i] [facility] ([facility]) 5'3" Body weight 186.00 [lb_av] 186.00 [lb_av] [facility] ([facility]) Diastolic blood pressure 70 mm[Hg] 70 mm[Hg] [facility] ([facility]) Body mass index (BMI) [Ratio] 32.9 kg/m2 32.9 k g/m2 [facility] ([facility]) Body weight 181.00 [lb_av] 181.00 [lb_av] [facility] ([facility]) Body weight 182.00 [lb_av] 182.00 [lb_av] [facility] Body weight 186.00 [lb_av] 186.00 [lb_av] [facility] Patient Treatment Plan of Care Planned Activity Planned Date Details Description Data Source (s) Bisacodyl 10 MG Rectal Suppository 10/12/2020 09:00:00 AM EDT [facility] POLYETHYLENE GLYCOL 3350 142 MG/ML Oral Solution 10/11/2020 07:00:0 0 AM EDT [facility] Furosemide 40 MG Oral Tablet 10/11/2020 12:00:00 AM EDT [facility] Atenolol 25 MG Oral Tablet 10/11/2020 12:00:00 AM EDT [facility] Patient on Coumadin during hospitalizati on. (To order Coumadin on discharge click the don t prescribe button and go to new orders on discharge section. Coumadin can be ordered there. Alternatively, reconcile the pre admission Coumadin dose if it appears on the list below) 10/09/2020 01:39:27 PM EDT [facility] ondansetron (ZOFRAN) injection 4 mg 10/09/2020 01:37:32 PM EDT [facility] 2 ML Metoclopramide 5 MG/ML Prefilled Syringe 10/09/2020 01:37:32 P M EDT [facility] 10 ML Atropine Sulfate 0.1 MG/ML Prefilled Syringe 10/09/2020 01 :37:31 PM EDT [facility] Nitroglycerin 0.4 MG Sublingual Tablet 10/09/2020 01:17:26 PM EDT [facility] Albuterol 0.83 MG/ML Inhalant Solution 10/09/2020 01:16:44 PM EDT [facility] Potassium Chloride 20 MEQ Extended Release Oral Tablet 10/03/2020 12:00:00 AM EDT [facility] torsemide 100 MG Oral Tablet 09/28/2020 12:00:00 AM EDT [facility] Nitroglycerin 0.4 MG Sublingual Tablet 08/02/2020 10:44:38 AM EDT [facility] 10 ML Atropine Sulfate 0.1 MG/ML Prefilled Syringe 08/02/2020 10 :44:37 AM EDT [facility] Acetaminophen 325 MG Oral Tablet 08/02/2020 10:44:37 AM EDT [facility] normal saline flush 0.9 % injection 3 mL 08/02/2020 09:00:00 AM EDT [facility] normal saline flush 0.9 % injection 3 mL 08/02/2020 08:00:00 AM EDT [facility] normal saline flush 0.9 % injection 3 mL 08/02/2020 08:00:00 AM EDT [facility] sodium chloride 0.9% (NS) infusion 08/02/2020 08:00:00 AM EDT [facility] clopidogrel 75 MG Oral Tablet 08/02/2020 12:00:00 AM EDT [facility] Aspirin 81 MG Chewable Tablet 08/02/2020 12:00:00 AM EDT [facility] Atenolol 50 MG Oral Tablet 07/22/2020 12:00:00 AM EDT [facility] furosemide (LASIX) injection 40 mg 07/21/2020 05:00:00 PM EDT [facility] normal saline flush 0.9 % injection 3 mL 07/21/2020 03:00:00 PM EDT [facility] normal saline flush 0.9 % injection 3 mL 07/21/2020 02:00:00 PM EDT [facility] normal saline flush 0.9 % injection 3 mL 07/21/2020 02:00:00 PM EDT [facility] Acetaminophen 325 MG Oral Tablet 07/21/2020 12:16:07 PM EDT [facility] Losartan Potassium 100 MG Oral Tablet 07/21/2020 12:00:00 AM EDT [facility] Furosemide 20 MG Oral Tablet 07/21/2020 12:00:00 AM EDT [facility] Furosemide 20 MG Oral Tablet 07/21/2020 12:00:00 AM EDT [facility] Albuterol 0.83 MG/ML Inhalant Solution 07/20/2020 02:59:48 PM EDT [facility] sodium chloride 0.9% (NS) infusion 07/20/2020 01:00:00 PM EDT [facility] albuterol (PROVENTIL HFA;VENTOLIN HFA) 108 (90 Base) MCG/ACT inhale r [facility] Cyanocobalamin (B-12 PO) [facility] Aspirin 81 MG Delayed Release Oral Tablet [facility] ferrous gluconate 324 MG Oral Tablet [facility] Amlodipine 5 MG Oral Tablet [facility] 60 ACTUAT Fluticasone propionate 0.25 MG /ACTUAT / salmeterol 0.05 MG/ACTUAT Dry Powder Inhaler [facility] Aspirin 81 MG Chewable Tablet [facility] Ketorolac Tromethamine 5 MG/ML Ophthalmic Solution [facility] Atenolol 50 MG Oral Tablet [facility] Furosemide 20 MG Oral Tablet [facility] Losartan Potassium 100 MG Oral Tablet [facility]
[2021-01-09] MEDS: METOPROLOL 5 MG/5 ML VIAL IV SCH ×2 (16:09→22:51)
[2021-01-09] MEDS: PANTOPRAZOLE 40MG VIAL (C9113 PER 1) IV SCH (16:11)
--- NOTE | 2021-01-09 16:40 | REP ---
INDICATION: NGT placement. COMPARISON: 01/09/2021 11:29 a.m. TECHNIQUE: Single portable AP view of the chest was performed. FINDINGS: The lung hollis remain clear. The heart and mediastinum are unchanged. Left pacemaker is again noted. There is placement of a nasogastric tube with the side port in the stomach. IMPRESSION: Nasogastric tube side port is in the stomach. <Electronically signed by Iain To > 01/09/21 1231
[2021-01-09] MEDS ORDERED: hydrALAZINE 20MG/ML 1ML VIAL (J0360 PER 20MG) IV PRN (17:40)
[2021-01-09] MEDS ORDERED: PIPERACILLIN/TAZOBACTAM SOD 3.375 GM in D5W MINI-BAG PLUS 50 ML IV ONE (17:40)
--- NOTE | 2021-01-09 17:41 | HPEPDOC ---
General Date of Admission Jan 09, 2021 at 15:26 Date of Service: Jan 09, 2021 Chief Complaint The patient is a 85-year-old male admitted with a reason for visit of Leukocytosis,Sepsis. Source: Patient, Family, RN/MD History of Present Illness Mr. Atwood is an 85-year-old male with recent pacemaker placement and valve replacement who presents with abdominal pain and dyspnea. Patient is a poor historian and most of the history is obtained from . At [facility] ent had a pacemaker placement and valve replacement on October 18, 2020. Since then he is been having episodes of dyspnea. His primary recently put him on antibiotics and steroids and he recently finished it. He did have a bout of diarrhea but that resolved shortly after. About a week and a half ago, patient was having abdominal pain. was wondering if his shorts was too tight around his waist and was pressing on his umbilical hernia. was saying his appetite was poor and he did not eat much. When I saw him in the ED, he was very pleasant but a poor historian. On exam, his abdomen felt full. At one point I thought he was guarding, but he told me that he was not. He had some te nderness. Imaging demonstrated possible SBO versus ileus. On imaging, I could see the bowel going into his umbilical hernia. I reached out to general surgery, Dr. Barnett. He could see patient's bowel contents being backed up to the stomach and esophagus. Recommended NG tube placement. With NG tube placement, removed 1.7 liters of gastric content. Patient felt relief in his abdomen was softer. Otherwise, there is question if the patient had sepsis. Patient had leukocytosis with tachypnea and altered mental status. tells me that generally he is pretty sharp and patient did not know the year and thought we were in [place]. Patient also had lactic acidosis. Patient will be admitted for SBO and sepsis Home Medications Scheduled Atenolol (Atenolol) 25 Mg Tablet, 25 MG PO DAILY, (Reported) Atorvastatin Calcium (Atorvastatin Calcium) 40 Mg Tab, 40 MG PO QHS, (Reported) Brimonidine Tartrate (Alphagan P) 100 Drop/5 Ml Soln, 1 DRP OU QAM, (Reported) Clopidogrel Bisulfate (Clopidogrel) 75 Mg Tablet, 75 MG PO DAILY, (Reported) Furosemide (Furosemide) 20 Mg Tab, 20 MG PO DAILY, (Reported) Latanoprost (Xalatan) 0.005% 2.5ML Drops, 1 DROP OU QPM, (Reported) Levothyroxine Sodium (Levothyroxine Sodium) 75 Mcg Tab, 75 MCG PO DAILY, (Reported) Magnesium Oxide (Magnesium) 400 Mg Capsule, 400 MG PO DAILY for constipation, (Reported) Omeprazole (Omeprazole) 20 Mg Capsule.dr, 20 MG PO DAILY, (Reported) Potassium Chloride (K-Tab ER) 10 Meq Tablet.er, 1 TAB PO DAILY, (Reported) Salmeterol/Fluticasone (Advair 250-50 Diskus) 14 Puff/Inhaler Aerp, 1 PUFF INH BID, (Reported) Warfarin Sodium (Warfarin Sodium) 5 Mg Tablet, 2.5 MG PO DAILY, (Reported) TAKES 5MG ON MON AND WED. 1/2 T OTHER DAYS Scheduled PRN Acetaminophen (Acetaminophen) 325 Mg Tab, 650 MG PO DAILY PRN for PAIN LEVEL 1- 4, (Reported) Albuterol Sulfate (Proair Hfa) 8.5 Gm Hfa.aer.ad, 2 PUFF INH QID PRN for SOB/WHEEZING, (Reported) Alprazolam (Xanax) 0.25 Mg Tablet, 0.25 MG PO BID PRN for anxiety, (Reported) Allergies Coded Allergies: diphenhydramine (Verified Allergy, Severe, SWELLING, 01/09/21) FISH (Verified Allergy, Unknown, 06/14/08) POULTRY (Verified Allergy, Unknown, DARK MEAT, 06/14/08) bacitracin (Verified Allergy, Unknown, 01/09/21) brimonidine (Verified Allergy, Unknown, 01/09/21) dorzolamide (Verified Allergy, Unknown, 01/09/21) neomycin (Verified Allergy, Unknown, 01/09/21) polymyxin B (Verified Allergy, Unknown, 01/09/21) timolol (Verified Allergy, Unknown, 01/09/21) valsartan (Verified Allergy, Unknown, 01/09/21) Past Medical History Medical History 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 Essential hypertension 4. Pure hypercholesterolemia Surgical History 1. Cardiac stent 2. Pacemaker placement 3. Valvular replacement Family History Patient does not know medical history of parents Social History * Smoker: former Smoker Alcohol: Denies Drugs: denies A-FIB/CHADSVASC A-FIB History Current/History of A-Fib/PAF?: No Review of Systems Constitutional: Denies: Chills, Fever Eyes: Denies: Vision change ENT: Denies: Sore Throat Skin: Denies: Rash Pulmonary: Reports: Dyspnea Cardiovascular: Denies: Chest Pain Gastrointestinal: Denies: Nausea, Abdominal Pain Genitourinary: Denies: Dysuria Hematologic: Denies: Bruising Neurological: Denies: Numbness Psych: Denies: Anxiety, Depression Physical Examination General Exam: Positive: Alert, Cooperative Eye Exam: Positive: EOMI; Negative: Sclera icteric ENT Exam: Positive: Other ENT (Oral mucosa appear dry); Negative: Atraumatic Neck Exam: Negative: Supple Chest Exam: Positive: Other (Coarse breath sounds) Heart Exam: Positive: Rate Normal, Regular Rhythm Abdomen Exam: Positive: BS Hypoactive, Tenderness, Hernia (Umbilical), Other (Mild firmness) Neuro Exam: Positive: Normal Speech, Cranial Nerves 3-12 NL Psych Exam: Negative: Memory Intact, Oriented x 3 Vital Signs Vital Signs Date Time Temp Pulse Resp B/P (MAP) Pulse Ox O2 Delivery O2 Flow Rate FiO2 01/09/21 16:15 172/81 (111) 01/09/21 16:09 78 01/09/21 16:05 98.8 28 95 Room Air Laboratory Data Labs 24H Laboratory Tests 2 01/09/21 11:22: Immature Granulocyte % (Auto) 0.6, Neutrophils (%) (Auto) 89.7H, Lymphocytes (%) (Auto) 3.0L, Monocytes (%) (Auto) 6.5, Eosinophils (%) (Auto) 0.0, Basophils (%) (Auto) 0.2, Neutrophils # (Auto) 19.4H, Lymphocytes # (Auto) 0.7L, Monocytes # (Auto) 1.4H, Eosinophils # (Auto) 0.0, Basophils # (Auto) 0.1, Nucleated Red Blood Cells % (auto) 0.0, Anion Gap 8, Glomerular Filtration Rate 39.5, Lactic Acid Level 3.6*H, Calcium Level 10.2, Total Bilirubin 1.1H, Direct Bilirubin 0.3H, Aspartate Amino Transf (AST/SGOT) 12, Alanine Aminotransferase (ALT/SGPT) 18, Alkaline Phosphatase 177H, Total Creatine Kinase 38L, Creatine Kinase MB 1.2, Creatine Kinase MB Relative Index 3.16, Troponin I 0.04, MP-Ead-K-Type Natriuretic Peptide 98931G, Total Protein 7.7, Albumin 3.6, Albumin/Globulin Ratio 0.9, Thyroid Stimulating Hormone (TSH) 5.880H, Thyroxine (T4) 8.6 01/09/21 11:30: Blood Gas Bicarbonate Standard 25.4, Venous Blood pH 7.419, Venous Blood Partial Pressure CO2 42.0, Venous Blood Partial Pressure O2 40.3, Venous Blood Total Carbon Dioxide 27.9, Venous Blood HCO3 26.6, Venous Blood Oxygen Saturation 72.7, Venous Blood Base Excess 1.8 01/09/21 11:37: Prothrombin Time 39.9H, Prothromb Time International Ratio 4.09 01/09/21 16:24: CBC/BMP Laboratory Tests 01/09/21 11:22 Microbiology Microbiology 01/09/21 Blood Culture, Received Pending 01/09/21 Blood Culture, Received Pending 01/09/21 Respiratory Virus Panel (PCR) ([facility]) - Final, Complete Assessment/Plan Mr. Atwood is an 85-year-old male with recent pacemaker placement and valve replacement who presents with abdominal pain and dyspnea. Patient has known umbilical hernia which ED was able to reduce. Patient's abdomen felt full and he had tenderness. NG tube was placed and he felt better. Imaging suggested SBO. General surgery consulted and recommendations appreciated On examination, patient appeared dry. His oral mucosa was dry. He also had a lactic acidosis. Patient was given fluids. Patient also met SIRS criteria with tachypnea and altered mental status. He also has leukocytosis. Patient will empirically be started on Zosyn and be given fluids Plan / VTE VTE Prophylaxis Ordered?: Yes Plan Plan 1. Small bowel obstruction Possibly from his umbilical hernia General surgery consulted, recommendations appreciated NG tube in place and patient is feeling better 2. SIRS Patient meets SIRS criteria with altered mental status and tachypnea Patient also has lactic acidosis and leukocytosis Unclear etiology, pending blood cultures Attempting to obtain UA as well 3. GIOVANNY Suspect patient's baseline creatinine to be at 1 Creatinine on admission was 1.76 Patient appears dry. Most likely due to patient's SBO causing poor oral intake IVF 4. Hypothyroidism Due to patient's SBO, patient may have not been absorbing levothyroxine IV levothyroxine as patient is n.p.o. 5. Hypertension Hold atenolol Start IV Lopressor with holding parameters As needed IV hydralazine 6. Hyperlipidemia Hold atorvastatin as patient is n.p.o. 7. Glaucoma Continue brimonidine and latanoprost 8. GERD Switch from oral PPI to IV PPI 9. 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 tells me the same. They cannot tell me why he is on Coumadin We will need to obtain records from [place]. If they had placed a mechanical heart valve, he will need to stay on the Coumadin As patient may need surgery, hold Coumadin 10. DVT prophylaxis Patient is currently supratherapeutic on Coumadin Disposition: Pending clinical improvement ANGELES LOPEZ DO Jan 09, 2021 17:17
[2021-01-09 18:17] VITALS: BP 154/81
[2021-01-09] MEDS: PIPERACILLIN/TAZOBACTAM SOD 3.375 GM in D5W MINI-BAG PLUS 50 ML IV SCH ×2 (18:24→23:30)
[2021-01-09] MEDS: ADVAIR HFA 115/21MCG INHALER INH SCH (20:00)
[2021-01-09 20:30] VITALS: BP 151/70
[2021-01-09] MEDS ORDERED: ATORVASTATIN 20 MG TAB PO SCH (21:00)
--- NOTE | 2021-01-09 22:11 | CR.PDOC ---
General Surgery Consultation Date of Consultation 01/09/21 History and Physical CONSULT REPORT FOR: Abiodun Mitchell MD (hospitalist service) REASON FOR CONSULTATION: Abdominal distention, small bowel obstruction versus ileus, umbilical hernia HISTORY OF PRESENT ILLNESS: I was asked to evaluate Mr. Atwood for possibility of small bowel obstruction related to his umbilical hernia. Patient is quite pleasantly confused when I saw him. He already has a nasogastric tube placed and I was told that about 1 liter and a half of gastric fluid has been evacuated on placement. Patient reports feeling much better since placement of the nasogastric tube. Though he denies having any abdominal pain at all. He also denies nausea or vomiting for the past week or so. I could not parse much of the details of his presentation due to his confusion so much of the details were from the chart review as well as for discussion with Dr. Sutherland and Dr. Mitchell. It appears he has a longstanding umbilical hernia. I do not see any prior repairs on my ex amination. Apparently he has not been eating much for the past week and a half. He denies any episodes of vomiting. Currently he denies any abdominal pain on presentation. He was brought in because he was noted to be short of breath, weak. Seems to be going on since a prior hospitalization for pacemaker and valve replacement in September 2020 and he has been treated with antibiotics and steroids. His imaging studies consistent with either ileus or small bowel obstruction. Umbilical hernias present and there may be a decompressed knuckle of small bowel going through the hernia though on exam this appears reducible. PAST MEDICAL HISTORY: 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 Essential hypertension 4. Pure hypercholesterolemia PAST SURGICAL HISTORY: INCLUDES: 1. Cardiac stent 2. Pacemaker placement 3. Valvular replacement ALLERGIES: Please see below. HOME MEDICATIONS: Please see below. REVIEW OF SYSTEMS: Reliable review of systems not possible due to patient's confusion. From what I can gather he was not eating well for the past week and a half. No fevers or chills reported. He is brought in today for complaints of shortness of breath. He denies cough colds fevers or chills. He denies any chest pain. Denies nausea or vomiting. Denies diarrhea. He tells me he moves his bowel regularly daily. Denies dysuria. PHYSICAL EXAMINATION: VITALS SIGNS: Please see below. GENERAL APPEARANCE: Patient seen sitting up on the stretcher, pleasantly confused does not seem to be oriented to time and place. Overall looks comfortable. SKIN: Warm and dry. HEENT: Anicteric sclerae. He has a nasogastric tube placed on his right nostril with dark coffee-ground colored fluid in the canister. NECK: Supple, no thyromegaly. No obvious jugular venous distention. LUNGS: Slight decreased breath sounds basal areas. He does seem to be using his extra diaphragmatic muscles morning breathing including his abdominal muscles. His saturation seems to be maintained in the mid 90s with just nasal cannula. I do not hear any wheezing though breath sounds seems to be a little coarse bilaterally.. HEART: Nontachycardic. Regular rhythm. ABDOMEN: Abdomen is moderately obese, soft, moderately distended. Upper abdominal scars from his mediastinal tubes from his heart surgery. No other scars noted. He has roughly a 2 cm umbilical hernia that is mildly full. I could reduce fully the herniating bowel. He is mildly tender over the area. Skin is is without any erythema. EXTREMITIES: No significant extremity edema ANCILLARIES: . LABORATORY DATA: Please see below. IMAGING STUDIES: I reviewed the CT abdomen and pelvis. He has a markedly distended stomach and some of the stomach contents seems to go up into the distal esophagus. He is moderately distended small bowel. It seems recent alcohol of small bowel that is decompressed within the hernia there is no free air. There is no free fluid no bowel wall thickening.. IMPRESSION AND PLAN: Small bowel obstruction probably related to the umbilical hernia though this seems to be on my examination reducible. I had asked for nasogastric tube to be placed and on placement a liter and a half of gastric fluid has been evacuated and patient reports feeling much better. There is no signs of threatened bowel at this point so do not think he needs any emergent surgery for now. I do think that this hernia may need to be repaired, preferably electively given his serious comorbidities including recent follow-up surgery. There is a concern of possible pneumonia at this point so I would rather not have him be intubated. I will follow up on him closely and see to it that the bowel obstruction resolves accordingly. Vital Signs Vital Signs Date Time Temp Pulse Resp B/P (MAP) Pulse Ox O2 Delivery O2 Flow Rate FiO2 01/09/21 20:30 98.7 74 18 151/70 (97) 94 Room Air Laboratory Data Labs 24H Laboratory Tests 2 01/09/21 11:22: Immature Granulocyte % (Auto) 0.6, Neutrophils (%) (Auto) 89.7H, Lymphocytes (%) (Auto) 3.0L, Monocytes (%) (Auto) 6.5, Eosinophils (%) (Auto) 0.0, Basophils (%) (Auto) 0.2, Neutrophils # (Auto) 19.4H, Lymphocytes # (Auto) 0.7L, Monocytes # (Auto) 1.4H, Eosinophils # (Auto) 0.0, Basophils # (Auto) 0.1, Nucleated Red Blood Cells % (auto) 0.0, Anion Gap 8, Glomerular Filtration Rate 39.5, Lactic Acid Level 3.6*H, Calcium Level 10.2, Total Bilirubin 1.1H, Direct Bilirubin 0.3H, Aspartate Amino Transf (AST/SGOT) 12, Alanine Aminotransferase (ALT/SGPT) 18, Alkaline Phosphatase 177H, Total Creatine Kinase 38L, Creatine Kinase MB 1.2, Creatine Kinase MB Relative Index 3.16, Troponin I 0.04, MI-Qxm-B-Type Natriuretic Peptide 96067M, Total Protein 7.7, Albumin 3.6, Albumin/Globulin Ratio 0.9, Thyroid Stimulating Hormone (TSH) 5.880H, Thyroxine (T4) 8.6 01/09/21 11:30: Blood Gas Bicarbonate Standard 25.4, Venous Blood pH 7.419, Venous Blood Partial Pressure CO2 42.0, Venous Blood Partial Pressure O2 40.3, Venous Blood Total C arbon Dioxide 27.9, Venous Blood HCO3 26.6, Venous Blood Oxygen Saturation 72.7, Venous Blood Base Excess 1.8 01/09/21 11:37: Prothrombin Time 39.9H, Prothromb Time International Ratio 4.09 01/09/21 16:24: Lactic Acid Followup at 4 Hours 2.3*H CBC/BMP Laboratory Tests 01/09/21 11:22 Microbiology Microbiology 01/09/21 Blood Culture, Received Pending 01/09/21 Blood Culture, Received Pending 01/09/21 Respiratory Virus Panel (PCR) ([facility]) - Final, Complete Home Medications Scheduled Atenolol (Atenolol) 25 Mg Tablet, 25 MG PO DAILY, (Reported) Atorvastatin Calcium (Atorvastatin Calcium) 40 Mg Tab, 40 MG PO QHS, (Reported) Brimonidine Tartrate (Alphagan P) 100 Drop/5 Ml Soln, 1 DRP OU QAM, (Reported) Clopidogrel Bisulfate (Clopidogrel) 75 Mg Tablet, 75 MG PO DAILY, (Reported) Furosemide (Furosemide) 20 Mg Tab, 20 MG PO DAILY, (Reported) Latanoprost (Xalatan) 0.005% 2.5ML Drops, 1 DROP OU QPM, (Reported) Levothyroxine Sodium (Levothyroxine Sodium) 75 Mcg Tab, 75 MCG PO DAILY, (Reported) Magnesium Oxide (Magnesium) 400 Mg Capsule, 400 MG PO DAILY for constipation, (Reported) Omeprazole (Omeprazole) 20 Mg Capsule.dr, 20 MG PO DAILY, (Reported) Potassium Chloride (K-Tab ER) 10 Meq Tablet.er, 1 TAB PO DAILY, (Reported) Salmeterol/Fluticasone (Advair 250-50 Diskus) 14 Puff/Inhaler Aerp, 1 PUFF INH BID, (Reported) Warfarin Sodium (Warfarin Sodium) 5 Mg Tablet, 2.5 MG PO DAILY, (Reported) TAKES 5MG ON MON AND FRI. 1/2 T OTHER DAYS Scheduled PRN Acetaminophen (Acetaminophen) 325 Mg Tab, 650 MG PO DAILY PRN for PAIN LEVEL 1- 4, (Reported) Albuterol Sulfate (Proair Hfa) 8.5 Gm Hfa.aer.ad, 2 PUFF INH QID PRN for SOB/WHEEZING, (Reported) Alprazolam (Xanax) 0.25 Mg Tablet, 0.25 MG PO BID PRN for anxiety, (Reported) Allergies Coded Allergies: diphenhydramine (Verified Allergy, Severe, SWELLING, 01/09/21) FISH (Verified Allergy, Unknown, 06/14/08) POULTRY (Verified Allergy, Unknown, DARK MEAT, 06/14/08) bacitracin (Verified Allergy, Unknown, 01/09/21) brimonidine (Verified Allergy, Unknown, 01/09/21) IS CURRENTLY RECEIVING THIS AT HOME; NO NOTED ALLERGY dorzolamide (Verified Allergy, Unknown, 01/09/21) neomycin (Verified Allergy, Unknown, 01/09/21) polymyxin B (Verified Allergy, Unknown, 01/09/21) timolol (Verified Allergy, Unknown, 01/09/21) valsartan (Verified Allergy, Unknown, 01/09/21) BETSY BLACKMON MD Jan 09, 2021 22:11
[2021-01-09 22:40] VITALS: BP 130/68
[2021-01-09] MEDS: LATANOPROST 0.005% OPHTH SOLN 2.5 ML OU SCH (22:51)
[2021-01-09] MEDS ORDERED: LORazepam 2 MG/ML VIAL IM STA (22:59)
[2021-01-09] MEDS ORDERED: LORazepam 2 MG/ML VIAL IV STA (23:11)
[2021-01-10] VITALS: BP 125/59
[2021-01-10 04:00] VITALS: BP 135/63
[2021-01-10 05:24] LABS: HEMATOCRIT 39.7 % (42.0-52.0); HEMOGLOBIN 12.6 g/dl (13.5-17.5); MEAN CORPUSCULAR HEMOGLOBIN 26.2 pg (27.0-33.0); MEAN CORPUSCULAR HGB CONC 31.7 g/dl (32.0-36.5); MEAN CORPUSCULAR VOLUME 82.5 fl (80.0-96.0); RED BLOOD COUNT 4.81 10^6/uL (4.30-6.10); WHITE BLOOD COUNT 12.1 10^3/uL (4.0-10.0)
[2021-01-10 05:30] LABS: PLATELET COUNT, AUTOMATED 304 10^3/uL (150-450)
[2021-01-10 05:37] LABS: PROTHROMBIN TIME 63.3 SECONDS (12.7-14.5)
[2021-01-10] MEDS: PIPERACILLIN/TAZOBACTAM SOD 3.375 GM in D5W MINI-BAG PLUS 50 ML IV SCH ×3 (05:45→17:44)
[2021-01-10] MEDS: METOPROLOL 5 MG/5 ML VIAL IV SCH ×4 (05:46→22:32)
[2021-01-10 05:47] LABS: C REACTIVE PROTEIN QUANTITATIV 1.84 MG/DL (0.00-0.30); CALCIUM LEVEL 8.4 MG/DL (8.8-10.2); CREATININE FOR GFR 1.79 MG/DL (0.70-1.30); GLOMERULAR FILTRATION RATE 38.7 (>35); MAGNESIUM LEVEL 2.1 MG/DL (1.8-2.4)
[2021-01-10 05:51] LABS: ERYTHROCYTE SEDIMENTATION RATE 16 mm/hr (0-20)
[2021-01-10] MEDS ORDERED: LEVOTHYROXINE 75MCG TABLET (0.075MG) PO SCH (06:00)
[2021-01-10] MEDS: LEVOTHYROXINE 100MCG (0.1MG) VIAL IV SCH (06:07)
[2021-01-10 08:00] VITALS: BP 132/60
[2021-01-10 08:15] LABS: INR 7.49
[2021-01-10] MEDS ORDERED: CLOPIDOGREL 75 MG TAB PO SCH (09:00)
[2021-01-10] MEDS ORDERED: atenoloL 25 MG TAB PO SCH (09:00)
[2021-01-10] MEDS ORDERED: OMEPRAZOLE 20 MG CAP PO SCH (09:00)
[2021-01-10] MEDS: ADVAIR HFA 115/21MCG INHALER INH SCH (09:01)
[2021-01-10] MEDS: KCL 40MEQ IN D5/0.45NS 1000ML 1,000 ML IV SCH (09:56)
[2021-01-10] MEDS: BRIMONIDINE 0.1% OPHTH SOLN 5 ML OU SCH (09:56)
[2021-01-10 12:00] VITALS: BP 128/62
--- NOTE | 2021-01-10 12:10 | IPNPDOC ---
Text Note Date of Service The patient was seen on 01/10/21. NOTE General surgery. Dr. Blackmon The patient is an 85-year-old male with small bowel obstruction likely related to umbilical hernia. NG tube in place. This morning, the patient reports improvement in his abdominal pain and bloating. Denies nausea. States he still has some pain around the hernia site but it is better than yesterday. Afebrile. VSS. Awake and alert, resting comfortably in bed NG tube in place. S1-S2 regular rate rhythm Lungs are clear to auscultation Abdomen is soft, less distended, mild tenderness around umbilical hernia but it is reducible and there is no skin discoloration or swelling and overall the patient states it is improved compared with yesterday, no guarding or grimacing. WBC is noted to be 12.1, this is decreased from 21.7 on admission. Follow-up lactic acid this morning 1.1. Assessment/plan Small bowel obstruction likely related to umbilical hernia. The patient is reviewed as per Dr. Blackmon. NPO NGT in place, 1800 mL output documented yesterday, no output documented so far today. IVF as per hospitalist. Continue to monitor. VS,Fishbone, I+O VS, Fishbone, I+O Laboratory Tests 01/10/21 05:03 Vital Signs Date Time Temp Pulse Resp B/P (MAP) Pulse Ox O2 Delivery O2 Flow Rate FiO2 01/10/21 11:33 77 132/60 01/10/21 08:00 97.6 16 92 Room Air 01/10/21 04:00 3.0 I&O- Last 24 Hours up to 6 AM 01/10/21 05:59 Intake Total 1200 ml Output Total 2000 ml Balance -800 ml Attending Note Attending Note Patient seen with Ms. Mirza. He still looks confused, not oriented to place. He reports he is feeling better. Nasogastric tube remains in place. It looks like he has been having some incontinent loose bowel movements. Abdominal exam is distended but but otherwise benign. Umbilical hernia is reducible. Impression and plan Umbilical hernia Small bowel obstruction versus ileus. Most likely bowel obstruction related to transient incarceration of the bowel within his umbilical hernia. Right now looks to be reducible. No signs of peritonitis. No signs of perforation or threatened bowel on imaging. Continue with the nasogastric tube. We will follow up with an x-ray. We will follow along closely. Ideally would like to do his hernia repair while he is here but this will depend on his overall state of health. Other alternative will be interval umbilical hernia repair to prevent recurrence. Mickie Mirza Jan 10, 2021 12:10 BETSY BLACKMON MD Jan 15, 2021 11:54
[2021-01-10 13:23] LABS: CALCIUM LEVEL 9.2 MG/DL (8.8-10.2); CREATININE FOR GFR 1.68 MG/DL (0.70-1.30); GLOMERULAR FILTRATION RATE 41.6 (>35); POTASSIUM SERUM 3.2 MEQ/L (3.5-5.1)
--- NOTE | 2021-01-10 13:29 | ECGEPIP ---
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
--- NOTE | 2021-01-10 14:49 | IPNPDOC ---
Subjective Date Seen The patient was seen on 01/10/21. Subjective Chief Complaint/HPI Mr. Atwood is an 85-year-old male with recent pacemaker placement and valve replacement who presents with abdominal pain and dyspnea. This morning, patient is feeling better. Denies chest pain or dyspnea. Abdomen was not as full as yesterday. No tenderness to palpation. Objective Physical Examination General Exam: Positive: Alert, Cooperative Eye Exam: Positive: EOMI; Negative: Sclera icteric ENT Exam: Positive: Other ENT (Oral mucosa appear dry); Negative: Atraumatic Neck Exam: Negative: Supple Chest Exam: Positive: Other (Coarse breath sounds) Heart Exam: Positive: Rate Normal, Regular Rhythm Abdomen Exam: Positive: BS Hypoactive, Tenderness, Hernia (Umbilical), Other (Mild firmness) Neuro Exam: Positive: Normal Speech, Cranial Nerves 3-12 NL Psych Exam: Negative: Memory Intact, Oriented x 3 Assessment /Plan Assessment Mr. Atwood is an 85-year-old male with recent pacemaker placement and valve replacement who presents with abdominal pain and dyspnea. Patient has known umbilical hernia which ED was able to reduce. Patient's abdomen felt full and he had tenderness. NG tube was placed and he felt better. Imaging suggested SBO. General surgery consulted and recommendations appreciated On examination, patient appeared dry. His oral mucosa was dry. He also had a lactic acidosis. Patient was given fluids. Patient also met SIRS criteria with tachypnea and altered mental status. He also has leukocytosis. Patient will empirically be started on Zosyn and be given fluids Plan/VTE VTE Prophylaxis Ordered?: Yes Plan 1. Small bowel obstruction Possibly from his umbilical hernia General surgery consulted, recommendations appreciated NG tube in place and patient is feeling better 2. SIRS Patient meets SIRS criteria with altered mental status and tachypnea Patient also has lactic acidosis and leukocytosis Unclear etiology, pending blood cultures UA positive for 1+ leuk esterase and 1+ bacteria. Pending urine culture results Zosyn day 1 3. GIOVANNY Suspect patient's baseline creatinine to be at 1 Creatinine on admission was 1.76 Patient appears dry. Most likely due to patient's SBO causing poor oral intake IVF 4. Hypothyroidism Due to patient's SBO, patient may have not been absorbing levothyroxine IV levothyroxine as patient is n.p.o. 5. Hypertension Hold atenolol Start IV Lopressor with holding parameters As needed IV hydralazine 6. Hyperlipidemia Hold atorvastatin as patient is n.p.o. 7. Glaucoma Continue brimonidine and latanoprost 8. GERD Switch from oral PPI to IV PPI 9. 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 tells me the same. They cannot tell me why he is on Coumadin We will need to obtain records from [place]. If they had placed a mechanical heart valve, he will need to stay on the Coumadin As patient may need surgery, hold Coumadin INR increasing, may be secondary to poor dietary intake of vitamin K. We will give a dose of vitamin K 10. DVT prophylaxis Patient is currently supratherapeutic on Coumadin Disposition: Pending clinical improvement VS, I&O, 24H, Alberto Vital Signs/I&O Vital Signs Date Time Temp Pulse Resp B/P (MAP) Pulse Ox O2 Delivery O2 Flow Rate FiO2 01/10/21 12:00 98.6 48 16 128/62 (84) 92 Room Air 01/10/21 08:00 3.0 I&O- Last 24 Hours up to 6 AM 01/10/21 06:00 Intake Total 1200 ml Output Total 2000 ml Balance -800 ml Laboratory Data 24H LABS Laboratory Tests 2 01/09/21 16:24: Lactic Acid Followup at 4 Hours 2.3*H 01/09/21 23:11: Urine Color YELLOW, Urine Appearance HAZY, Urine pH 5.0, Urine Specific [place] 1.021, Urine Protein 1+H, Urine Glucose (UA) NEGATIVE, Urine Ketones NEGATIVE, Urine Blood NEGATIVE, Urine Nitrite NEGATIVE, Urine Bilirubin NEGATIVE, Urine Urobilinogen 0.2, Urine Leukocyte Esterase 1+H, Urine WBC (Auto) 14H, Urine RBC (Auto) 3, Urine Hyaline Casts (Auto) 3, Urine Bacteria (Auto) 1+H, Urine Squamous Epithelial Cells 0, Urine Mucus (Auto) SMALL, Urine Sperm (Auto) 01/10/21 05:03: Nucleated Red Blood Cells % (auto) 0.0, Erythrocyte Sedimentation Rate 16, Prothrombin Time 63.3H, Prothromb Time International Ratio 7.49*H, Anion Gap 8, Glomerular Filtration Rate 38.7, Lactic Acid Level 1.1, Calcium Level 8.4#L, Magnesium Level 2.1, C-Reactive Protein, Quantitative 1.84H 01/10/21 12:34: Anion Gap 8, Glomerular Filtration Rate 41.6, Calcium Level 9.2 CBC/BMP Laboratory Tests 01/10/21 05:03 01/10/21 12:34 Microbiology Microbiology 01/09/21 Urine Culture, Received Pending 01/09/21 Blood Culture - Preliminary, Resulted No growth after 24 hours . All specim... 01/09/21 Blood Culture - Preliminary, Resulted No growth after 24 hours . All specim... 01/09/21 Respiratory Virus Panel (PCR) ([facility]) - Final, Complete ANGELES LOPEZ DO Jan 10, 2021 14:48
[2021-01-10 16:00] VITALS: BP 156/73
[2021-01-10] MEDS ORDERED: PHYTONADIONE 2.5 MG **1/2 TAB PO ONE (16:00)
[2021-01-10] MEDS: PANTOPRAZOLE 40MG VIAL (C9113 PER 1) IV SCH (16:20)
[2021-01-10 18:52] LABS: CALCIUM LEVEL 8.9 MG/DL (8.8-10.2); CREATININE FOR GFR 1.55 MG/DL (0.70-1.30); GLOMERULAR FILTRATION RATE 45.7 (>35); POTASSIUM SERUM 3.2 MEQ/L (3.5-5.1)
[2021-01-10 20:00] VITALS: BP 127/58
[2021-01-10] MEDS: LATANOPROST 0.005% OPHTH SOLN 2.5 ML OU SCH (22:02)
[2021-01-10] MEDS: KCL 10MEQ/100ML SWI (KRUN) 10 MEQ in IV 1 EA IV SCH ×2 (22:32→23:49)
[2021-01-11] VITALS: BP 146/78
[2021-01-11] MEDS: PIPERACILLIN/TAZOBACTAM SOD 3.375 GM in D5W MINI-BAG PLUS 50 ML IV SCH ×4 (01:17→17:08)
[2021-01-11] MEDS: ADVAIR HFA 115/21MCG INHALER INH SCH ×3 (02:56→20:00)
[2021-01-11] MEDS: KCL 40MEQ IN D5/0.45NS 1000ML 1,000 ML IV SCH ×3 (02:56→17:07)
[2021-01-11 04:00] VITALS: BP 130/80
[2021-01-11] MEDS: METOPROLOL 5 MG/5 ML VIAL IV SCH ×4 (04:30→23:49)
[2021-01-11 05:33] LABS: HEMATOCRIT 38.5 % (42.0-52.0); HEMOGLOBIN 11.9 g/dl (13.5-17.5); MEAN CORPUSCULAR HEMOGLOBIN 26.2 pg (27.0-33.0); MEAN CORPUSCULAR HGB CONC 30.9 g/dl (32.0-36.5); MEAN CORPUSCULAR VOLUME 84.6 fl (80.0-96.0); PLATELET COUNT, AUTOMATED 263 10^3/uL (150-450); RED BLOOD COUNT 4.55 10^6/uL (4.30-6.10)
[2021-01-11] MEDS: LEVOTHYROXINE 100MCG (0.1MG) VIAL IV SCH (05:34)
[2021-01-11 05:58] LABS: CALCIUM LEVEL 8.6 MG/DL (8.8-10.2); CREATININE FOR GFR 1.36 MG/DL (0.70-1.30); GLOMERULAR FILTRATION RATE 53.1 (>35); POTASSIUM SERUM 3.3 MEQ/L (3.5-5.1)
[2021-01-11 06:30] LABS: INR 7.14
[2021-01-11] MEDS ORDERED: PHYTONADIONE 2.5 MG **1/2 TAB PO ONE ×2 (06:45→15:55)
[2021-01-11 08:00] VITALS: BP 145/86
--- NOTE | 2021-01-11 09:04 | REP ---
INDICATION: NG tube placement. COMPARISON: 01/09/2021. TECHNIQUE: Single portable AP view of the chest was performed. FINDINGS: The nasogastric tube side port now is at the gastroesophageal junction. No infiltrate is seen in either lung. The heart and mediastinum are unchanged. Left pacemaker is again noted. IMPRESSION: Nasogastric tube side port is at the gastroesophageal junction. The tube should be advanced. <Electronically signed by Iain To > 01/11/21 0901
--- NOTE | 2021-01-11 09:10 | IPNPDOC ---
Text Note Date of Service The patient was seen on 01/11/21. NOTE General surgery. Dr. Barnett The patient is an 85-year-old male with small bowel obstruction likely related to umbilical hernia. NG tube in place. This morning, the patient is resting comfortably and reports mild pain around the hernia site. Denies nausea. Afebrile. VSS. Awake and alert, resting comfortably in bed NG tube in place. S1-S2 regular rate rhythm Lungs are clear to auscultation Abdomen is soft, still mildly distended distended, still mild tenderness around umbilical hernia but it is reducible, no guarding or grimacing. WBC is noted to be 9.0 Assessment/plan Small bowel obstruction likely related to umbilical hernia. The patient is reviewed and examined as per Dr. Barnett this morning. Continue NPO NGT in place, output not recorded yesterday. Trial of clamping. IVF as per hospitalist. Request KUB this morning Dr. Barnett plans to discuss hernia repair with the patient's family. Continue to monitor. VS,Fishbone, I+O VS, Fishbone, I+O Laboratory Tests 01/10/21 12:34 01/10/21 18:04 01/11/21 05:16 Vital Signs Date Time Temp Pulse Resp B/P (MAP) Pulse Ox O2 Delivery O2 Flow Rate FiO2 01/11/21 08:00 98.4 85 17 145/86 (105) 97 Room Air 01/10/21 08:00 3.0 I&O- Last 24 Hours up to 6 AM 01/11/21 05:59 Intake Total 1500 ml Output Total 0 ml Balance 1500 ml Attending Note Attending Note Patient seen and examined with Ms. Mirza. I also came back later on this afternoon to check up on him. I had the NG tube clamped the whole day and I put it back to suction and there was not much back from it on suction. He has also been having loose stools. X-ray shows more an ileus type pattern. His abdomen is much softer and benign. His umbilical hernia is reducible but he does have some tenderness to it. I reached out to Dr. Coats with regards to his increasing INR. I have initially planned in the morning to possibly talk to the to discuss umbilical hernia repair but given the persistent high INR would hold off on this. He can have clear liquids and we can advance him as he is able to tolerate it. Would consider doing his umbilical hernia repair before he goes on if he gets stable over the weekend before he goes home next week. Another option would be an interval umbilical hernia repair once he is fully recovered at home. Mikcie Mirza Jan 11, 2021 09:10 BETSY BARNETT MD Jan 11, 2021 16:34
[2021-01-11] MEDS: BRIMONIDINE 0.1% OPHTH SOLN 5 ML OU SCH (09:16)
[2021-01-11] MEDS ORDERED: POTASSIUM CHLORIDE 10% LIQ 20 MEQ/15 ML UDC PO ONE (10:35)
--- NOTE | 2021-01-11 10:47 | REP ---
INDICATION: ffup sbo. COMPARISON: None. FINDINGS: There are a few scattered gas-filled mildly dilated small bowel loops in the abdomen. There is a paucity of gas in the rectosigmoid region. There is no evidence of free air in the supine KUB. Degenerative changes seen involving spine, sacroiliac joints, and hips. The distal portion of the nasogastric tube is seen in the stomach fundal region. IMPRESSION: Likely mild ileus. No definite evidence of intestinal obstruction. Follow-up is suggested. <Electronically signed by Benigno Rod > 01/11/21 [id number]
--- NOTE | 2021-01-11 11:05 | REP ---
INDICATION: re-eval of advanced NGT. COMPARISON: Abdomen 01/11/2021. TECHNIQUE: Single portable AP view of the chest was performed. FINDINGS: The nasogastric tube has been advanced, the side port is in the stomach. Visualized bowel loops in the upper abdomen are unchanged. The visualized lung bases are unchanged. IMPRESSION: Nasogastric tube side port in the stomach. <Electronically signed by Iain To > 01/11/21 1103
[2021-01-11 12:40] VITALS: BP 169/80
[2021-01-11] MEDS: PANTOPRAZOLE 40MG VIAL (C9113 PER 1) IV SCH (15:50)
[2021-01-11 16:00] VITALS: BP 156/90
--- NOTE | 2021-01-11 16:55 | IPNPDOC ---
Subjective Date Seen The patient was seen on 01/11/21. Subjective Chief Complaint/HPI Mr. Atwood is an 85-year-old male with recent pacemaker placement and valve replacement who presents with abdominal pain and dyspnea. Overnight, he had an incident where he pulled out the IV and NGT. This morning, he apologized to me and said that he got anxious last night. Otherwise, denies any chest pain or dyspnea. General surgery plan to removed NGT today and see how patient does on a diet. If patient is still here next week, can consider trying hernia repair. Objective Physical Examination General Exam: Positive: Alert, Cooperative Eye Exam: Positive: EOMI; Negative: Sclera icteric Chest Exam: Positive: Diminished Heart Exam: Positive: Rate Normal, Regular Rhythm Abdomen Exam: Positive: BS Hypoactive, Hernia (Umbilical) Neuro Exam: Positive: Normal Speech, Cranial Nerves 3-12 NL Psych Exam: Negative: Memory Intact, Oriented x 3 Assessment /Plan Assessment Mr. Atwood is an 85-year-old male with recent pacemaker placement and valve replacement who presents with abdominal pain and dyspnea. Patient has known umbilical hernia which ED was able to reduce. Patient's abdomen felt full and he had tenderness. NG tube was placed and he felt better. Imaging suggested SBO. General surgery consulted and recommendations appreciated On examination, patient appeared dry. His oral mucosa was dry. He also had a lactic acidosis. Patient was given fluids. Patient also met SIRS criteria with tachypnea and altered mental status. He also has leukocytosis. Patient will empirically be started on Zosyn and be given fluids. Leukocytosis has now resolved Plan/VTE VTE Prophylaxis Ordered?: Yes Plan 1. Small bowel obstruction Possibly from his umbilical hernia General surgery consulted, recommendations appreciated Patient did well with NG tube. NG tube now removed. If patient still here next week, can consider hernia repair. 2. SIRS Patient meets SIRS criteria with altered mental status and tachypnea Patient also has lactic acidosis and leukocytosis Unclear etiology, pending blood cultures UA positive for 1+ leuk esterase and 1+ bacteria. Urine culture did not have any growth Zosyn day 2 3. GIOVANNY Suspect patient's baseline creatinine to be at 1 Creatinine on admission was 1.76 Patient appears dry. Most likely due to patient's SBO causing poor oral intake IVF 4. Hypothyroidism Due to patient's SBO, patient may have not been absorbing levothyroxine IV levothyroxine as patient is n.p.o. 5. Hypertension Hold atenolol Start IV Lopressor with holding parameters As needed IV hydralazine 6. Hyperlipidemia Hold atorvastatin as patient is n.p.o. 7. Glaucoma Continue brimonidine and latanoprost 8. GERD Switch from oral PPI to IV PPI 9. 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 tells me the same. They cannot tell me why he is on Coumadin We will need to obtain records from [place]. If they had placed a mechanical heart valve, he will need to stay on the Coumadin As patient may need surgery, hold Coumadin INR increasing, may be secondary to poor dietary intake of vitamin K. We will give a dose of vitamin K 10. DVT prophylaxis Patient is currently supratherapeutic on Coumadin Disposition: Pending clinical improvement VS, I&O, 24H, Alberto Vital Signs/I&O Vital Signs Date Time Temp Pulse Resp B/P (MAP) Pulse Ox O2 Delivery O2 Flow Rate FiO2 01/11/21 15:50 79 169/80 01/11/21 12:40 98.6 16 100 Room Air 01/10/21 08:00 3.0 I&O- Last 24 Hours up to 6 AM 01/11/21 06:00 Intake Total 1550 ml Output Total 0 ml Balance 1550 ml Laboratory Data 24H LABS Laboratory Tests 2 01/10/21 18:04: Anion Gap 7L, Glomerular Filtration Rate 45.7, Calcium Level 8.9 01/11/21 05:16: Anion Gap 5L, Glomerular Filtration Rate 53.1, Calcium Level 8.6L, Nucleated Red Blood Cells % (auto) 0.0, Prothrombin Time 61.0H, Prothromb Time International Ratio 7.14*H, Magnesium Level 2.0 CBC/BMP Laboratory Tests 01/10/21 18:04 01/11/21 05:16 Microbiology Microbiology 01/09/21 Urine Culture - Final, Complete 01/09/21 Blood Culture - Preliminary, Resulted No Growth after 48 hours. All Specime... 01/09/21 Blood Culture - Preliminary, Resulted No Growth after 48 hours. All Specime... 01/09/21 Respiratory Virus Panel (PCR) ([facility]) - Final, Complete ANGELES LOPEZ DO Jan 11, 2021 16:55
[2021-01-11 20:00] VITALS: BP 136/80
[2021-01-11] MEDS: LATANOPROST 0.005% OPHTH SOLN 2.5 ML OU SCH (21:31)
[2021-01-12] VITALS: BP 140/80
[2021-01-12] MEDS: PIPERACILLIN/TAZOBACTAM SOD 3.375 GM in D5W MINI-BAG PLUS 50 ML IV SCH ×5 (01:09→23:48)
[2021-01-12 04:00] VITALS: BP 148/69
[2021-01-12] MEDS: METOPROLOL 5 MG/5 ML VIAL IV SCH (04:50)
[2021-01-12] MEDS: LEVOTHYROXINE 100MCG (0.1MG) VIAL IV SCH (05:10)
[2021-01-12 06:09] LABS: HEMATOCRIT 38.5 % (42.0-52.0); HEMOGLOBIN 11.9 g/dl (13.5-17.5); MEAN CORPUSCULAR HEMOGLOBIN 26.6 pg (27.0-33.0); MEAN CORPUSCULAR HGB CONC 30.9 g/dl (32.0-36.5); MEAN CORPUSCULAR VOLUME 85.9 fl (80.0-96.0); PLATELET COUNT, AUTOMATED 249 10^3/uL (150-450); RED BLOOD COUNT 4.48 10^6/uL (4.30-6.10); WHITE BLOOD COUNT 7.9 10^3/uL (4.0-10.0)
[2021-01-12 06:20] LABS: INR 2.64; PROTHROMBIN TIME 28.5 SECONDS (12.7-14.5)
[2021-01-12 06:33] LABS: BLOOD UREA NITROGEN 13 MG/DL (7-18); CALCIUM LEVEL 8.8 MG/DL (8.8-10.2); CARBON DIOXIDE LEVEL 25 MEQ/L (21-32); CHLORIDE LEVEL 117 MEQ/L (98-107); CREATININE FOR GFR 1.08 MG/DL (0.70-1.30); GLOMERULAR FILTRATION RATE > 60.0 (>35); GLUCOSE, FASTING 88 MG/DL (70-100); MAGNESIUM LEVEL 1.9 MG/DL (1.8-2.4); POTASSIUM SERUM 3.7 MEQ/L (3.5-5.1); SODIUM LEVEL 146 MEQ/L (136-145)
[2021-01-12] MEDS: ADVAIR HFA 115/21MCG INHALER INH SCH ×2 (07:54→20:00)
[2021-01-12 08:00] VITALS: BP 136/78
[2021-01-12] MEDS ORDERED: ALPRAZolam 0.25 MG TAB PO PRN (09:25)
--- NOTE | 2021-01-12 09:57 | IPNPDOC ---
Text Note Date of Service The patient was seen on 01/12/21. NOTE General surgery. Dr. Barnett The patient is an 85-year-old male with small bowel obstruction likely related to umbilical hernia. NGT removed and pt is advanced to regular diet this AM. Has not had breakfast yet. The patient denies abdominal pain. Afebrile. VSS. Awake and alert, resting comfortably in bed S1-S2 regular rate rhythm Lungs are clear to auscultation Abdomen is soft, nondistended, less tenderness around umbilical hernia, reducible, no guarding or grimacing. WBC is noted to be 7.9 Assessment/plan Small bowel obstruction likely related to umbilical hernia. The patient is reviewed as per Dr. Barnett. The patient is advanced to regular diet. Plan to monitor over the weekend, possibly consider hernia repair next week. Continue to monitor. VS,Fishbone, I+O VS, Fishbone, I+O Laboratory Tests 01/12/21 05:44 Vital Signs Date Time Temp Pulse Resp B/P (MAP) Pulse Ox O2 Delivery O2 Flow Rate FiO2 01/12/21 04:50 88 154/90 01/12/21 04:00 98.2 18 97 Room Air 01/10/21 08:00 3.0 I&O- Last 24 Hours up to 6 AM 01/12/21 06:00 Intake Total 1150 ml Output Total 0 ml Balance 1150 ml Attending Note Attending Note I evaluated and examined Mr. Atwood, discussed his progress with his nurse. He reports no ongoing abdominal pain. He tolerated liquids yesterday. He has not eaten breakfast yet. He is having multiple loose stools spontaneously. He still remains mildly confused but he knows he is in a hospital in [place] instead of [place]. Denies any abdominal pain. Vital signs stable. Abdomen is round, soft, roughly about a 2 cm umbilical hernia that is protruding on top of the umbilical cleft but is reducible. Nontender on palpation. Mildly distended. Impression and plan Small bowel obstruction versus ileus resolved Umbilical hernia I was contemplating repair today but his INR was markedly elevated the past 2 days. This seems to have improved with vitamin K. Probably has more to do with the ileus/bowel obstruction that allowed him to slowly reabsorb the Coumadin that he was taking. I spoke with Dr. Mitchell. Continue to hold the Coumadin. Plan to repair the hernia on Friday. I will speak to the for consent next week. Mickie Mirza Jan 12, 2021 09:57 BETSY BARNETT MD Jan 13, 2021 06:40
[2021-01-12] MEDS: atenoloL 25 MG TAB PO SCH (10:25)
[2021-01-12] MEDS: OMEPRAZOLE 20 MG CAP PO SCH (10:26)
[2021-01-12] MEDS: BRIMONIDINE 0.1% OPHTH SOLN 5 ML OU SCH (10:26)
[2021-01-12] MEDS: QUEtiapine FUMARATE 25 MG TAB PO SCH ×3 (11:05→22:04)
[2021-01-12 12:00] VITALS: BP 136/65
[2021-01-12] MEDS ORDERED: OLANZapine INTRAMUSCULAR 10MG VIAL IM ONE (13:00)
[2021-01-12 16:00] VITALS: BP 154/66
[2021-01-12] MEDS ORDERED: OLANZapine INTRAMUSCULAR 10MG VIAL IM PRN (16:20)
--- NOTE | 2021-01-12 16:35 | IPNPDOC ---
Subjective Date Seen The patient was seen on 01/12/21. Subjective Chief Complaint/HPI Mr. Atwood is an 85-year-old male with recent pacemaker placement and valve replacement who presents with abdominal pain and dyspnea. Today, patient denies any chest pain or dyspnea. He also denies any abdominal pain. General surgery is considering hernia repair early next week depending on how he does over the weekend. He is very anxious and is acting agitated later in the morning. Because he refuses oral Xanax, he was started on p.o. Seroquel and as needed olanzapine. Later in the day, I contacted the . She tells me that he has an anxious personality, and he usually does not do well with hospitalizations. He had struggled a lot when he was at [facility]. Objective Physical Examination General Exam: Positive: Alert; Negative: Cooperative Eye Exam: Positive: EOMI; Negative: Sclera icteric Chest Exam: Positive: Clear to auscultation Heart Exam: Positive: Rate Normal, Regular Rhythm Abdomen Exam: Positive: BS Hypoactive, Hernia (Umbilical) Extremity Exam: Negative: Edema Neuro Exam: Positive: Normal Speech, Cranial Nerves 3-12 NL Psych Exam: Positive: Anxiety; Negative: Memory Intact, Oriented x 3 Assessment /Plan Assessment Mr. Atwood is an 85-year-old male with recent pacemaker placement and valve replacement who presents with abdominal pain and dyspnea. Patient has known umbilical hernia which ED was able to reduce. Patient's abdomen felt full and he had tenderness. NG tube was placed and he felt better. Imaging suggested SBO. General surgery consulted and recommendations appreciated. Considering surgery early next week depending on how he does over the weekend. On examination, patient appeared dry. His oral mucosa was dry. He also had a lactic acidosis. Patient was given fluids. Patient also met SIRS criteria with tachypnea and altered mental status. He also has leukocytosis. Patient will empirically be started on Zosyn and be given fluids. Leukocytosis has now resolved. Renal function improved. IV fluids were stopped Plan/VTE VTE Prophylaxis Ordered?: Yes Plan 1. Small bowel obstruction Possibly from his umbilical hernia General surgery consulted, recommendations appreciated Patient did well with NG tube. NG tube now removed. General surgery is considering hernia repair early next week 2. SIRS Patient meets SIRS criteria with altered mental status and tachypnea Patient also has lactic acidosis and leukocytosis Unclear etiology, pending blood cultures. Possibly from his SBO UA positive for 1+ leuk esterase and 1+ bacteria. Urine culture did not have any growth Zosyn day 3 3. GIOVANNY Suspect patient's baseline creatinine to be at 1 Creatinine on admission was 1.76 Patient appears dry. Most likely due to patient's SBO causing poor oral intake Renal function returned to baseline. Discontinue IVF 4. Hypothyroidism Due to patient's SBO, patient may have not been absorbing levothyroxine Attempting p.o. levothyroxine 5. Hypertension Attempting p.o. atenolol 6. Hyperlipidemia Attempting p.o. atorvastatin 7. Glaucoma Continue brimonidine and latanoprost 8. GERD Switched from IV PPI to oral PPI 9. 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 tells me the same. They cannot tell me why he is on Coumadin We will need to obtain records from [place]. If they had placed a mechanical heart valve, he will need to stay on the Coumadin As patient may need surgery, hold Coumadin INR improved 10. DVT prophylaxis Patient is currently therapeutic on Coumadin Disposition: Pending clinical improvement. Patient may have surgery early next week. Otherwise patient has delirium secondary to anxiety and hospitalization. We will try nocturnal Seroquel. VS, I&O, 24H, Fishbone Vital Signs/I&O Vital Signs Date Time Temp Pulse Resp B/P (MAP) Pulse Ox O2 Delivery O2 Flow Rate FiO2 01/12/21 12:00 99.0 88 20 136/65 (88) 96 Room Air 01/10/21 08:00 3.0 I&O- Last 24 Hours up to 6 AM 01/12/21 06:00 Intake Total 1150 ml Output Total 0 ml Balance 1150 ml Laboratory Data 24H LABS Laboratory Tests 2 01/12/21 05:44: Nucleated Red Blood Cells % (auto) 0.0, Prothrombin Time 28.5H, Prothromb Time International Ratio 2.64, Anion Gap 4L, Glomerular Filtration Rate > 60.0, Calcium Level 8.8, Magnesium Level 1.9 CBC/BMP Laboratory Tests 01/12/21 05:44 Microbiology Microbiology 01/09/21 Urine Culture - Final, Complete 01/09/21 Blood Culture - Preliminary, Resulted No Growth after 72 hours. All specime... 01/09/21 Blood Culture - Preliminary, Resulted No Growth after 72 hours. All specime... 01/09/21 Respiratory Virus Panel (PCR) ([facility]) - Final, Complete ANGELES LOPEZ DO Jan 12, 2021 16:35
[2021-01-12 20:00] VITALS: BP 139/82
[2021-01-12] MEDS: ATORVASTATIN 20 MG TAB PO SCH (22:04)
[2021-01-12] MEDS: LATANOPROST 0.005% OPHTH SOLN 2.5 ML OU SCH (22:04)
[2021-01-13] VITALS: BP 149/66
[2021-01-13 04:00] VITALS: BP 143/88
[2021-01-13] MEDS: LEVOTHYROXINE 75MCG TABLET (0.075MG) PO SCH (05:43)
[2021-01-13] MEDS: PIPERACILLIN/TAZOBACTAM SOD 3.375 GM in D5W MINI-BAG PLUS 50 ML IV SCH ×4 (05:44→23:11)
[2021-01-13 07:17] LABS: HEMATOCRIT 37.8 % (42.0-52.0); HEMOGLOBIN 11.6 g/dl (13.5-17.5); MEAN CORPUSCULAR HEMOGLOBIN 26.4 pg (27.0-33.0); MEAN CORPUSCULAR HGB CONC 30.7 g/dl (32.0-36.5); MEAN CORPUSCULAR VOLUME 86.1 fl (80.0-96.0); PLATELET COUNT, AUTOMATED 222 10^3/uL (150-450); RED BLOOD COUNT 4.39 10^6/uL (4.30-6.10); WHITE BLOOD COUNT 8.9 10^3/uL (4.0-10.0)
[2021-01-13 07:24] LABS: INR 1.83; PROTHROMBIN TIME 21.5 SECONDS (12.7-14.5)
[2021-01-13 07:40] LABS: BLOOD UREA NITROGEN 11 MG/DL (7-18); CALCIUM LEVEL 9.1 MG/DL (8.8-10.2); CARBON DIOXIDE LEVEL 25 MEQ/L (21-32); CHLORIDE LEVEL 113 MEQ/L (98-107); CREATININE FOR GFR 0.97 MG/DL (0.70-1.30); GLOMERULAR FILTRATION RATE > 60.0 (>35); GLUCOSE, FASTING 63 MG/DL (70-100); POTASSIUM SERUM 3.7 MEQ/L (3.5-5.1); SODIUM LEVEL 146 MEQ/L (136-145)
[2021-01-13 08:00] VITALS: BP 146/66
[2021-01-13] MEDS: ADVAIR HFA 115/21MCG INHALER INH SCH ×2 (08:36→23:05)
[2021-01-13] MEDS: atenoloL 25 MG TAB PO SCH (09:10)
[2021-01-13] MEDS: BRIMONIDINE 0.1% OPHTH SOLN 5 ML OU SCH (09:10)
[2021-01-13] MEDS: QUEtiapine FUMARATE 25 MG TAB PO SCH ×2 (09:11→20:01)
[2021-01-13] MEDS: OMEPRAZOLE 20 MG CAP PO SCH (09:11)
[2021-01-13 12:00] VITALS: BP 148/74
[2021-01-13 14:00] VITALS: BP 130/61
--- NOTE | 2021-01-13 17:09 | IPNPDOC ---
Subjective Date Seen The patient was seen on 01/13/21. Subjective Chief Complaint/HPI Mr. Atwood is an 85-year-old male with recent pacemaker placement and valve replacement who presents with abdominal pain and dyspnea. Patient was seen this morning. He is very anxious. He tells me he did not know what he was doing or if it was right. Denies any chest pain or dyspnea. Objective Physical Examination General Exam: Positive: Alert; Negative: Cooperative Eye Exam: Positive: EOMI; Negative: Sclera icteric Chest Exam: Positive: Clear to auscultation Heart Exam: Positive: Rate Normal, Regular Rhythm Abdomen Exam: Positive: BS Hypoactive, Hernia (Umbilical) Extremity Exam: Negative: Edema Neuro Exam: Positive: Normal Speech, Cranial Nerves 3-12 NL Psych Exam: Positive: Anxiety; Negative: Memory Intact, Oriented x 3 Assessment /Plan Assessment Mr. Atwood is an 85-year-old male with recent pacemaker placement and valve replacement who presents with abdominal pain and dyspnea. Patient has known umbilical hernia which ED was able to reduce. Patient's abdomen felt full and he had tenderness. NG tube was placed and he felt better. Imaging suggested SBO. General surgery consulted and recommendations appreciated. Considering surgery early next week depending on how he does over the weekend. On examination, patient appeared dry. His oral mucosa was dry. He also had a lactic acidosis. Patient was given fluids. Patient also met SIRS criteria with tachypnea and altered mental status. He also has leukocytosis. Patient will empirically be started on Zosyn and be given fluids. Leukocytosis has now resolved. Renal function improved. IV fluids were stopped. Plan/VTE VTE Prophylaxis Ordered?: Yes Plan 1. Small bowel obstruction Possibly from his umbilical hernia General surgery consulted, recommendations appreciated Patient did well with NG tube. NG tube now removed. General surgery is considering hernia repair early next week 2. SIRS Patient meets SIRS criteria with altered mental status and tachypnea Patient also has lactic acidosis and leukocytosis Unclear etiology, pending blood cultures. Possibly from his SBO UA positive for 1+ leuk esterase and 1+ bacteria. Urine culture did not have any growth Zosyn day 4 3. GIOVANNY Suspect patient's baseline creatinine to be at 1 Creatinine on admission was 1.76 Patient appears dry. Most likely due to patient's SBO causing poor oral intake Renal function returned to baseline. Discontinue IVF 4. Hypothyroidism Due to patient's SBO, patient may have not been absorbing levothyroxine Continue p.o. levothyroxine 5. Hypertension Continue p.o. atenolol 6. Hyperlipidemia Continue p.o. atorvastatin 7. Glaucoma Continue brimonidine and latanoprost 8. GERD Switched from IV PPI to oral PPI 9. Long-term 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 use/supratherapeutic INR Patient tells me he is on Coumadin for injury to his right femoral blood ves velma. tells me the same. They cannot tell me why he is on Coumadin We will need to obtain records from [place]. If they had placed a mechanical heart valve, he will need to stay on the Coumadin As patient may need surgery, hold Coumadin INR improved 10. DVT prophylaxis INR still elevated. Holding Coumadin for planned surgery on Friday Disposition: Pending clinical improvement. Patient may have surgery early next week. Otherwise patient has delirium secondary to anxiety and hospitalization. We will try nocturnal Seroquel. VS, I&O, 24H, Fishbone Vital Signs/I&O Vital Signs Date Time Temp Pulse Resp B/P (MAP) Pulse Ox O2 Delivery O2 Flow Rate FiO2 01/13/21 12:00 148/74 (98) 01/13/21 12:00 97.9 73 18 100 Room Air 01/10/21 08:00 3.0 I&O- Last 24 Hours up to 6 AM 01/13/21 06:00 Intake Total 180 ml Output Total 0 ml Balance 180 ml Laboratory Data 24H LABS Laboratory Tests 2 01/13/21 05:27: Nucleated Red Blood Cells % (auto) 0.0, Prothrombin Time 21.5H, Prothromb Time International Ratio 1.83, Anion Gap 8, Glomerular Filtration Rate > 60.0, Calcium Level 9.1, Magnesium Level 2.0 CBC/BMP Laboratory Tests 01/13/21 05:27 Microbiology Microbiology 01/09/21 Urine Culture - Final, Complete 01/09/21 Blood Culture - Preliminary, Resulted No Growth after 72 hours. All specime... 01/09/21 Blood Culture - Preliminary, Resulted No Growth after 72 hours. All specime... 01/09/21 Respiratory Virus Panel (PCR) ([facility]) - Final, Complete ANGELES LOPEZ DO Jan 13, 2021 17:09
[2021-01-13] MEDS: ATORVASTATIN 20 MG TAB PO SCH (20:01)
[2021-01-13] MEDS: LATANOPROST 0.005% OPHTH SOLN 2.5 ML OU SCH (20:02)
[2021-01-13 22:00] VITALS: BP 142/67
[2021-01-14] MEDS: LEVOTHYROXINE 75MCG TABLET (0.075MG) PO SCH (05:50)
[2021-01-14] MEDS: PIPERACILLIN/TAZOBACTAM SOD 3.375 GM in D5W MINI-BAG PLUS 50 ML IV SCH ×3 (05:51→17:58)
[2021-01-14 06:00] VITALS: BP 150/61
[2021-01-14 06:47] LABS: HEMOGLOBIN 12.5 g/dl (13.5-17.5); MEAN CORPUSCULAR HEMOGLOBIN 26.3 pg (27.0-33.0); MEAN CORPUSCULAR HGB CONC 31.3 g/dl (32.0-36.5); MEAN CORPUSCULAR VOLUME 84.2 fl (80.0-96.0); PLATELET COUNT, AUTOMATED 231 10^3/uL (150-450); RED BLOOD COUNT 4.75 10^6/uL (4.30-6.10); WHITE BLOOD COUNT 10.5 10^3/uL (4.0-10.0)
[2021-01-14 07:00] LABS: INR 1.77
[2021-01-14 07:13] LABS: BLOOD UREA NITROGEN 16 MG/DL (7-18); CARBON DIOXIDE LEVEL 27 MEQ/L (21-32); CHLORIDE LEVEL 113 MEQ/L (98-107); CREATININE FOR GFR 1.17 MG/DL (0.70-1.30); GLOMERULAR FILTRATION RATE > 60.0 (>35); GLUCOSE, FASTING 97 MG/DL (70-100); POTASSIUM SERUM 3.8 MEQ/L (3.5-5.1); SODIUM LEVEL 146 MEQ/L (136-145)
[2021-01-14] MEDS: ADVAIR HFA 115/21MCG INHALER INH SCH ×2 (07:41→21:30)
[2021-01-14] MEDS: QUEtiapine FUMARATE 25 MG TAB PO SCH ×2 (09:54→20:12)
[2021-01-14] MEDS: OMEPRAZOLE 20 MG CAP PO SCH (09:54)
[2021-01-14] MEDS: BRIMONIDINE 0.1% OPHTH SOLN 5 ML OU SCH (09:58)
[2021-01-14] MEDS: atenoloL 25 MG TAB PO SCH (09:58)
[2021-01-14 14:00] VITALS: BP 110/60
--- NOTE | 2021-01-14 16:03 | IPNPDOC ---
Subjective Date Seen The patient was seen on 01/14/21. Subjective Chief Complaint/HPI Mr. Atwood is an 85-year-old male with recent pacemaker placement and valve replacement who presents with abdominal pain and dyspnea. Patient was seen this morning. Denies any chest pain or dyspnea. Patient doing better when visits. Objective Physical Examination General Exam: Positive: Alert, Cooperative Eye Exam: Positive: EOMI; Negative: Sclera icteric Chest Exam: Positive: Clear to auscultation Heart Exam: Positive: Rate Normal, Regular Rhythm Abdomen Exam: Positive: Normal bowel sounds, Soft, Hernia (Umbilical) Extremity Exam: Negative: Edema Neuro Exam: Positive: Normal Speech, Cranial Nerves 3-12 NL Psych Exam: Positive: Anxiety; Negative: Memory Intact, Oriented x 3 Assessment /Plan Assessment Mr. Atwood is an 85-year-old male with recent pacemaker placement and valve replacement who presents with abdominal pain and dyspnea. Patient has known umbilical hernia which ED was able to reduce. Patient's abdomen felt full and he had tenderness. NG tube was placed and he felt better. Imaging suggested SBO. General surgery consulted and recommendations appreciated. Considering surgery early next week depending on how he does over the weekend. On examination, patient appeared dry. His oral mucosa was dry. He also had a lactic acidosis. Patient was given fluids. Patient also met SIRS criteria with tachypnea and altered mental status. He also has leukocytosis. Patient will empirically be started on Zosyn and be given fluids. Leukocytosis has now resolved. Renal function improved. IV fluids were stopped. Plan/VTE VTE Prophylaxis Ordered?: Yes Plan 1. Small bowel obstruction Possibly from his umbilical hernia General surgery consulted, recommendations appreciated Patient did well with NG tube. NG tube now removed. General surgery is considering hernia repair early next week 2. SIRS Patient meets SIRS criteria with altered mental status and tachypnea Patient also has lactic acidosis and leukocytosis Unclear etiology, pending blood cultures. Possibly from his SBO UA positive for 1+ leuk esterase and 1+ bacteria. Urine culture did not have any growth Zosyn day 5 3. GIOVANNY Suspect patient's baseline creatinine to be at 1 Creatinine on admission was 1.76 Patient appears dry. Most likely due to patient's SBO causing poor oral intake Renal function returned to baseline. Discontinue IVF 4. Hypothyroidism Due to patient's SBO, patient may have not been absorbing levothyroxine Continue p.o. levothyroxine 5. Hypertension Continue p.o. atenolol 6. Hyperlipidemia Continue p.o. atorvastatin 7. Glaucoma Continue brimonidine and latanoprost 8. GERD Switched from IV PPI to oral PPI 9. 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 tells me the same. They cannot tell me why he is on Coumadin As patient may need surgery, hold Coumadin INR improved 10. DVT prophylaxis INR still elevated. Holding Coumadin for planned surgery on Friday Disposition: Patient may have surgery early next week. Otherwise patient has delirium secondary to anxiety and hospitalization. We will try nocturnal Seroquel. is visiting, and patient is doing better with her visiting. VS, I&O, 24H, [place] Vital Signs/I&O Vital Signs Date Time Temp Pulse Resp B/P (MAP) Pulse Ox O2 Delivery O2 Flow Rate FiO2 01/14/21 14:00 98.8 71 17 110/60 (77) 95 Room Air 01/10/21 08:00 3.0 I&O- Last 24 Hours up to 6 AM 01/14/21 06:00 Intake Total 890 ml Output Total 0 ml Balance 890 ml Laboratory Data 24H LABS Laboratory Tests 2 01/14/21 06:08: Nucleated Red Blood Cells % (auto) 0.0, Prothrombin Time 21.0H, Prothromb Time International Ratio 1.77, Anion Gap 6L, Glomerular Filtration Rate > 60.0, Calcium Level 9.0, Magnesium Level 2.0 CBC/BMP Laboratory Tests 01/14/21 06:08 Microbiology Microbiology 01/09/21 Urine Culture - Final, Complete 01/09/21 Blood Culture - Final, Complete NO GROWTH AFTER 5 DAYS 01/09/21 Blood Culture - Final, Complete NO GROWTH AFTER 5 DAYS 01/09/21 Respiratory Virus Panel (PCR) ([facility]) - Final, Complete ANGELES LOPEZ DO Jan 14, 2021 16:03
[2021-01-14 19:45] VITALS: BP 127/75
[2021-01-14] MEDS: ATORVASTATIN 20 MG TAB PO SCH (20:12)
[2021-01-14] MEDS: LATANOPROST 0.005% OPHTH SOLN 2.5 ML OU SCH (20:13)
[2021-01-15] MEDS: PIPERACILLIN/TAZOBACTAM SOD 3.375 GM in D5W MINI-BAG PLUS 50 ML IV SCH ×4 (00:18→17:35)
[2021-01-15] MEDS: LEVOTHYROXINE 75MCG TABLET (0.075MG) PO SCH (05:44)
[2021-01-15 06:00] VITALS: BP 140/80
[2021-01-15 06:22] LABS: HEMATOCRIT 38.9 % (42.0-52.0); HEMOGLOBIN 12.2 g/dl (13.5-17.5); MEAN CORPUSCULAR HEMOGLOBIN 26.3 pg (27.0-33.0); MEAN CORPUSCULAR HGB CONC 31.4 g/dl (32.0-36.5); PLATELET COUNT, AUTOMATED 219 10^3/uL (150-450); RED BLOOD COUNT 4.63 10^6/uL (4.30-6.10); WHITE BLOOD COUNT 11.7 10^3/uL (4.0-10.0)
[2021-01-15 06:37] LABS: INR 1.39; PROTHROMBIN TIME 17.5 SECONDS (12.7-14.5)
[2021-01-15 06:45] LABS: BLOOD UREA NITROGEN 14 MG/DL (7-18); CALCIUM LEVEL 9.2 MG/DL (8.8-10.2); CARBON DIOXIDE LEVEL 24 MEQ/L (21-32); CHLORIDE LEVEL 116 MEQ/L (98-107); CREATININE FOR GFR 0.96 MG/DL (0.70-1.30); GLOMERULAR FILTRATION RATE > 60.0 (>35); GLUCOSE, FASTING 77 MG/DL (70-100); POTASSIUM SERUM 3.5 MEQ/L (3.5-5.1); SODIUM LEVEL 146 MEQ/L (136-145)
[2021-01-15] MEDS ORDERED: D5W/0.45% SODIUM CHLORIDE 1,000 ML IV SCH (07:15)
[2021-01-15] MEDS: ADVAIR HFA 115/21MCG INHALER INH SCH ×2 (07:55→20:00)
[2021-01-15] MEDS: QUEtiapine FUMARATE 25 MG TAB PO SCH ×2 (08:12→20:36)
[2021-01-15] MEDS: OMEPRAZOLE 20 MG CAP PO SCH (08:12)
[2021-01-15] MEDS: BRIMONIDINE 0.1% OPHTH SOLN 5 ML OU SCH (08:15)
[2021-01-15] MEDS: atenoloL 25 MG TAB PO SCH (08:18)
--- NOTE | 2021-01-15 12:00 | IPNPDOC ---
Text Note Date of Service The patient was seen on 01/15/21. NOTE Patient seen and examined. His was at the bedside with him this morning. I also discussed his course and further plans with Dr. Mitchell. Looks like he did well over the weekend. He is tolerating diet. He is having spontaneous, somewhat loose bowel movements being reported. He looks somewhat more oriented today. He knows he is in [place] instead of [place]. He denies any abdominal pain. Exam Comfortable in appearance Regular heart rate and rhythm Lungs clear to auscultation Abdomen round, soft, nondistended. Umbilical hernia protruding out but easily reducible. Nontender on palpation. No skin erythema or thickening or bleeding. Impression and plan Umbilical hernia Small bowel obstruction resolved Coagulopathy secondary to warfarin intake resolved His is at the bedside today and so I discussed whether plans for bringing him to the OR tomorrow for a robotic assisted laparoscopic repair of his umbilical hernia. This is so we could also take a look at the state of the bowels and look for other reasons for possible bowel obstruction. This will require placement of a mesh. This will be done under general anesthesia which may promote or worsen his acute delirium given his age and baseline status of confusion. I discussed the plan with Dr. Anguiano and we will continue to hold the Coumadin for his surgery tomorrow. I discussed with the patient the details of the proposed procedure, the benefits of performing the procedure, the most common risks on doing the procedure. This may include as above risks of worsening his delirium, confusion. Risks of bowel and vascular injury with the surgery, hernia recurrence and mesh complications i ncluding chronic pain, bowel obstruction, fistula formation. I explained this to his and obtain consent from her. Consent has been obtained from his . VS,Fishbone, I+O VS, Fishbone, I+O Laboratory Tests 01/15/21 05:58 Vital Signs Date Time Temp Pulse Resp B/P (MAP) Pulse Ox O2 Delivery O2 Flow Rate FiO2 01/15/21 08:18 99 158/88 01/15/21 06:00 97.5 18 95 Room Air 01/10/21 08:00 3.0 I&O- Last 24 Hours up to 6 AM 01/15/21 06:00 Intake Total 530 ml Output Total 0 ml Balance 530 ml BETSY BLACKMON MD Jan 15, 2021 11:59
[2021-01-15 14:00] VITALS: BP 137/78
--- NOTE | 2021-01-15 14:51 | IPNPDOC ---
Subjective Date Seen The patient was seen on 01/15/21. Subjective Chief Complaint/HPI Mr. Atwood is an 85-year-old male with recent pacemaker placement and valve replacement who presents with abdominal pain and dyspnea. This morning, patient appeared more calm. He denied chest pain or dyspnea. I spoke with general surgery. Planning for hernia repair tomorrow. Plan to make patient NPO tonight, continue to hold anticoagulation. Objective Physical Examination General Exam: Positive: Alert, Cooperative Eye Exam: Positive: EOMI; Negative: Sclera icteric Chest Exam: Positive: Clear to auscultation Heart Exam: Positive: Rate Normal, Regular Rhythm Abdomen Exam: Positive: Normal bowel sounds, Soft, Hernia (Umbilical) Extremity Exam: Negative: Edema Neuro Exam: Positive: Normal Speech, Cranial Nerves 3-12 NL Psych Exam: Positive: Mood NL; Negative: Memory Intact, Oriented x 3 Assessment /Plan Assessment Mr. Atwood is an 85-year-old male with recent pacemaker placement and valve replacement who presents with abdominal pain and dyspnea. Patient has known umbilical hernia which ED was able to reduce. Patient's abdomen felt full and he had tenderness. NG tube was placed and he felt better. Imaging suggested SBO. General surgery consulted and recommendations appreciated. Considering surgery early next week depending on how he does over the weekend. On examination, patient appeared dry. His oral mucosa was dry. He also had a lactic acidosis. Patient was given fluids. Patient also met SIRS criteria with tachypnea and altered mental status. He also has leukocytosis. Patient will empirically be started on Zosyn and be given fluids. Renal function improved. IV fluids were stopped. Plan/VTE VTE Prophylaxis Ordered?: Yes Plan 1. Small bowel obstruction Possibly from his umbilical hernia General surgery consulted, recommendations appreciated Patient did well with NG tube. NG tube now removed. General surgery is planning hernia repair tomorrow 2. SIRS Patient meets SIRS criteria with altered mental status and tachypnea Patient also has lactic acidosis and leukocytosis Unclear etiology, pending blood cultures. Possibly from his SBO UA positive for 1+ leuk esterase and 1+ bacteria. Urine culture did not have any growth Zosyn day 6 3. GIOVANNY Suspect patient's baseline creatinine to be at 1 Creatinine on admission was 1.76 Patient appears dry. Most likely due to patient's SBO causing poor oral intake Renal function returned to baseline. Discontinue IVF 4. Hypothyroidism TSH was mildly elevated at 5.88. Due to patient's SBO, patient may have not been absorbing levothyroxine Continue p.o. levothyroxine 5. Hypertension Continue p.o. atenolol 6. Hyperlipidemia Continue p.o. atorvastatin 7. Glaucoma Continue brimonidine and latanoprost 8. GERD Switched from IV PPI to oral PPI 9. 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 tells me the same. They cannot tell me why he is on Coumadin As patient may need surgery, hold Coumadin INR improved 10. DVT prophylaxis Holding Coumadin for planned surgery on Friday -INR now below 1.5 -TEDs Disposition: Plan for surgery tomorrow. NPO after midnight. VS, I&O, 24H, Fishbone Vital Signs/I&O Vital Signs Date Time Temp Pulse Resp B/P (MAP) Pulse Ox O2 Delivery O2 Flow Rate FiO2 01/15/21 14:00 98.6 81 20 137/78 (97) 96 Room Air 01/10/21 08:00 3.0 I&O- Last 24 Hours up to 6 AM 01/15/21 06:00 Intake Total 530 ml Output Total 0 ml Balance 530 ml Laboratory Data 24H LABS Laboratory Tests 2 01/15/21 05:58: Nucleated Red Blood Cells % (auto) 0.0, Prothrombin Time 17.5H, Prothromb Time International Ratio 1.39, Anion Gap 6L, Glomerular Filtration Rate > 60.0, Calcium Level 9.2 CBC/BMP Laboratory Tests 01/15/21 05:58 Microbiology Microbiology 01/09/21 Urine Culture - Final, Complete 01/09/21 Blood Culture - Final, Complete NO GROWTH AFTER 5 DAYS 01/09/21 Blood Culture - Final, Complete NO GROWTH AFTER 5 DAYS 01/09/21 Respiratory Virus Panel (PCR) ([facility]) - Final, Complete ANGELES LOPEZ DO Jan 15, 2021 14:51
[2021-01-15] MEDS: ATORVASTATIN 20 MG TAB PO SCH (20:36)
[2021-01-15] MEDS: LATANOPROST 0.005% OPHTH SOLN 2.5 ML OU SCH (20:36)
[2021-01-15 22:00] VITALS: BP 138/79
[2021-01-16] MEDS: PIPERACILLIN/TAZOBACTAM SOD 3.375 GM in D5W MINI-BAG PLUS 50 ML IV SCH ×4 (00:02→17:28)
[2021-01-16] MEDS: LEVOTHYROXINE 75MCG TABLET (0.075MG) PO SCH (05:43)
[2021-01-16 06:00] VITALS: BP 158/72
[2021-01-16] MEDS: ADVAIR HFA 115/21MCG INHALER INH SCH ×2 (08:00→20:00)
[2021-01-16] MEDS: OMEPRAZOLE 20 MG CAP PO SCH (08:22)
[2021-01-16] MEDS: QUEtiapine FUMARATE 25 MG TAB PO SCH ×2 (08:22→22:20)
[2021-01-16] MEDS: BRIMONIDINE 0.1% OPHTH SOLN 5 ML OU SCH (08:23)
[2021-01-16] MEDS: atenoloL 25 MG TAB PO SCH (08:23)
[2021-01-16 09:59] LABS: HEMATOCRIT 38.5 % (42.0-52.0); HEMOGLOBIN 12.1 g/dl (13.5-17.5); MEAN CORPUSCULAR HEMOGLOBIN 26.2 pg (27.0-33.0); MEAN CORPUSCULAR HGB CONC 31.4 g/dl (32.0-36.5); MEAN CORPUSCULAR VOLUME 83.5 fl (80.0-96.0); PLATELET COUNT, AUTOMATED 232 10^3/uL (150-450); RED BLOOD COUNT 4.61 10^6/uL (4.30-6.10); WHITE BLOOD COUNT 11.9 10^3/uL (4.0-10.0)
[2021-01-16 10:15] LABS: INR 1.29; PROTHROMBIN TIME 16.5 SECONDS (12.7-14.5)
[2021-01-16 10:26] LABS: BLOOD UREA NITROGEN 10 MG/DL (7-18); CALCIUM LEVEL 9.2 MG/DL (8.8-10.2); CARBON DIOXIDE LEVEL 22 MEQ/L (21-32); CHLORIDE LEVEL 112 MEQ/L (98-107); GLOMERULAR FILTRATION RATE > 60.0 (>35); GLUCOSE, FASTING 90 MG/DL (70-100); POTASSIUM SERUM 3.7 MEQ/L (3.5-5.1); SODIUM LEVEL 143 MEQ/L (136-145)
[2021-01-16 14:00] VITALS: BP 136/68
[2021-01-16] MEDS ORDERED: BUPIVACAINE HCL 0.25% 30ML VIAL As Ordered ONE (18:34)
[2021-01-16] MEDS ORDERED: LIDOCAINE 1% SDV 30ML VIAL As Ordered ONE (18:34)
[2021-01-16] MEDS ORDERED: propofoL 200 MG/20 ML VIAL As Ordered ONE (19:17)
[2021-01-16] MEDS ORDERED: LIDOCAINE 2% 100MG/5ML SDV (FOR ANES.) As Ordered ONE (19:17)
[2021-01-16] MEDS ORDERED: dexameTHASONE 4 MG/ML 1ML VIAL (J1100 PER 1MG) As Ordered ONE (19:17)
[2021-01-16] MEDS ORDERED: ROCURONIUM BROMIDE 50 MG/5 ML VIAL As Ordered ONE ×2 (19:17→20:21)
[2021-01-16] MEDS ORDERED: fentaNYL 250 MCG/5 ML INJECTION (J3010) As Ordered ONE (19:17)
[2021-01-16] MEDS ORDERED: ONDANSETRON 4MG/2ML VIAL As Ordered ONE (19:17)
[2021-01-16] MEDS ORDERED: PHENYLephrine 500MCG 5ML (100MCG/ML) SYRINGE As Ordered ONE ×2 (19:18→19:24)
[2021-01-16] MEDS ORDERED: ETOMIDATE INJ 20MG/10ML VIAL As Ordered ONE (19:18)
[2021-01-16] MEDS ORDERED: SUGAMMADEX SODIUM 500 MG/5 ML VIAL (BRIDION) As Ordered ONE (19:37)
--- NOTE | 2021-01-16 20:49 | IPNPDOC ---
Date Seen The patient was seen on 01/16/21. Progress Note SUBJECTIVE: Seen at bedside. Postop day 0 s/p hernia repair by Dr. Barnett. Doing well, no acute events. Denies CP, palpitations, abdominal pain, n/v/d, and fever. OBJECTIVE PHYSICAL EXAMINATION: VITAL SIGNS: please see below General: NAD, comfortable HEENT: PERRLA, EOMI, sclerae clear Neck: supple, normal ROM, no JVD Respiratory: lungs CTAB, no wheeze, no rales, no crackles CVS: RRR, normal S1, S2, no murmurs Abdo: soft, no masses, no hepatosplenomegaly, BS+, no rebound tenderness, lap aroscopic trocar scars, dressing CDI. Extremities: no edema, pulses 2+ MSK: no joint deformities, normal ROM Neuro: no focal neuro deficits, moving all 4 extremities, CN2-12 intact. Strength 5/5 in all 4 extremities. No nystagmus. Psych: calm, cooperative, AAO x 3 LABORATORY DATA, IMAGING STUDIES, MICROBIOLOGY: Please see below. DVT prophylaxis ordered?: Teds 1. Small bowel obstruction Possibly from his umbilical hernia General surgery consulted, recommendations appreciated Patient did well with NG tube. NG tube now removed. Status post hernia repair by Dr. Barnett on 01/16/2021 2. SIRS Patient meets SIRS criteria with altered mental status and tachypnea Patient also has lactic acidosis and leukocytosis Unclear etiology, pending blood cultures. Possibly from his SBO UA positive for 1+ leuk esterase and 1+ bacteria. Urine culture did not have any growth Zosyn day 7 3. GIOVANNY Suspect patient's baseline creatinine to be at 1 Creatinine on admission was 1.76 likely 2/2 pre-renal cause, as patient had appeared clinically dry. Renal function returned to baseline. Discontinue IVF 4. Hypothyroidism TSH was mildly elevated at 5.88. Due to patient's SBO, patient may have not been absorbing levothyroxine Continue p.o. levothyroxine 5. Hypertension Continue p.o. atenolol 6. Hyperlipidemia Continue p.o. atorvastatin 7. Glaucoma Continue brimonidine and latanoprost 8. GERD Switched from IV PPI to oral PPI 9. 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 tells me the same. They cannot tell me why he is on Coumadin d/w Dr. Barnett, can resume plavix post op. Hold coumadin for 48 hours post op. INR improved 10. DVT prophylaxis Holding Coumadin for planned surgery on Friday -INR now below 1.5 -TEDs Disposition: pending clinical improvement.. VS, I&O, 24H, Fishbone Vital Signs/I&O Vital Signs Date Time Temp Pulse Resp B/P (MAP) Pulse Ox O2 Delivery O2 Flow Rate FiO2 01/16/21 14:00 98.3 57 24 136/68 (90) 98 Room Air 01/10/21 08:00 3.0 I&O- Last 24 Hours up to 6 AM 01/16/21 06:00 Intake Total 3330 ml Balance 3330 ml Laboratory Data 24H LABS Laboratory Tests 2 01/16/21 09:26: Nucleated Red Blood Cells % (auto) 0.0, Prothrombin Time 16.5H, Prothromb Time International Ratio 1.29, Anion Gap 9, Glomerular Filtration Rate > 60.0, Calcium Level 9.2 CBC/BMP Laboratory Tests 01/16/21 09:26 Microbiology Microbiology 01/09/21 Urine Culture - Final, Complete 01/09/21 Blood Culture - Final, Complete NO GROWTH AFTER 5 DAYS 01/09/21 Blood Culture - Final, Complete NO GROWTH AFTER 5 DAYS 01/09/21 Respiratory Virus Panel (PCR) ([facility]) - Final, Complete ESTEBAN FREEDMAN MD Jan 16, 2021 20:49
[2021-01-16] MEDS ORDERED: PERCOCET 5MG/325MG TAB PO PRN ×2 (21:00)
[2021-01-16] MEDS ORDERED: LR 1,000 ML IV SCH (21:05)
[2021-01-16] MEDS ORDERED: ONDANSETRON 4MG/2ML VIAL IV PRN (21:05)
[2021-01-16] MEDS ORDERED: fentaNYL 100 MCG/2 ML INJECTION (J3010) IV PRN (21:05)
[2021-01-16] MEDS ORDERED: oxyCODONE 5MG TAB PO PRN (21:05)
[2021-01-16 22:00] VITALS: BP 137/78
[2021-01-16] MEDS: ATORVASTATIN 20 MG TAB PO SCH (22:19)
[2021-01-16] MEDS: KETOROLAC 30 MG/ML 1ML VIAL IV SCH (22:19)
[2021-01-16] MEDS: LATANOPROST 0.005% OPHTH SOLN 2.5 ML OU SCH (22:20)
[2021-01-16 22:30] VITALS: BP 136/78
[2021-01-16 23:00] VITALS: BP 111/67
[2021-01-17] VITALS (7 sets, daily range): BP systolic 114–149; BP diastolic 64–79
[2021-01-17] MEDS: PIPERACILLIN/TAZOBACTAM SOD 3.375 GM in D5W MINI-BAG PLUS 50 ML IV SCH ×3 (00:04→13:19)
[2021-01-17] MEDS ORDERED: LR 1,000 ML IV SCH (01:25)
[2021-01-17] MEDS: LEVOTHYROXINE 75MCG TABLET (0.075MG) PO SCH (05:42)
[2021-01-17] MEDS: KETOROLAC 30 MG/ML 1ML VIAL IV SCH ×2 (05:42→13:19)
[2021-01-17 06:12] LABS: HEMATOCRIT 39.4 % (42.0-52.0); HEMOGLOBIN 11.9 g/dl (13.5-17.5); MEAN CORPUSCULAR HGB CONC 30.2 g/dl (32.0-36.5); MEAN CORPUSCULAR VOLUME 86.2 fl (80.0-96.0); PLATELET COUNT, AUTOMATED 235 10^3/uL (150-450); RED BLOOD COUNT 4.57 10^6/uL (4.30-6.10)
[2021-01-17 06:57] LABS: BLOOD UREA NITROGEN 15 MG/DL (7-18); CARBON DIOXIDE LEVEL 28 MEQ/L (21-32); CHLORIDE LEVEL 110 MEQ/L (98-107); CREATININE FOR GFR 1.18 MG/DL (0.70-1.30); GLOMERULAR FILTRATION RATE > 60.0 (>35); GLUCOSE, FASTING 96 MG/DL (70-100); POTASSIUM SERUM 4.2 MEQ/L (3.5-5.1); SODIUM LEVEL 142 MEQ/L (136-145)
[2021-01-17] MEDS: ADVAIR HFA 115/21MCG INHALER INH SCH (08:00)
[2021-01-17] MEDS: OMEPRAZOLE 20 MG CAP PO SCH (08:12)
[2021-01-17] MEDS: BRIMONIDINE 0.1% OPHTH SOLN 5 ML OU SCH (08:12)
[2021-01-17] MEDS: QUEtiapine FUMARATE 25 MG TAB PO SCH (08:12)
[2021-01-17] MEDS: atenoloL 25 MG TAB PO SCH (08:12)
--- NOTE | 2021-01-17 08:13 | ROOPDOC ---
[facility] Report Of Operation Report of Operation DATE OF PROCEDURE: 01/16/21 PREPROCEDURE DIAGNOSES: Umbilical hernia. POSTPROCEDURE DIAGNOSES: Umbilical hernia with incarcerated preperitoneal tissue. PROCEDURE PERFORMED: Robotic assisted laparoscopic transabdominal preperitoneal umbilical hernia repair. SURGEON: Betsy Barnett MD SAP PROJECT MANAGER: Eliza Medina NP ANESTHESIA: General endotracheal anesthesia. ESTIMATED BLOOD LOSS: Approximately 10 mL. COMPLICATIONS: None. REMARKS: Patient is an 85-year-old gentleman admitted for what appears to initially be bowel obstruction secondary to transiently incarcerated loop of bowel within a longstanding umbilical hernia. Umbilical hernia was reduced in the emergency room. He was on Coumadin and we had his INR normalized. He is brought in today for planned umbilical hernia repair. FINDINGS: Very round protuberant abdomen. Wide diastases of the midline with small pockets of what looks to be fascial defects (subcentimeter). 2 x 1.5 cm fascial defect containing incarcerated preperitoneal fat tissue. Marked distention of the urinary bladder. He was straight cathed after the procedure. SPECIMENS REMOVED: None PROCEDURE NOTE: 10 x 10 cm Bard soft mid weight polypropylene mesh placed in the preperitoneal space. DESCRIPTION OF PROCEDURE: RTAPP Incisional/umbilical hernia R type umbilical hernia R. Pipo umbilical hernia patient has been getting regular doses of Zosyn 3.375 g IV every 6 hours since admission. This was continued perioperatively.. Patient was brought to the operating room, placed supine on the operating table. TEDs and Compression boots placed in both lower extremities for DVT prophylaxis. General endotracheal anesthesia started. Both arms tucked. His abdomen then prepped and draped in the usual sterile fashion. . We paused for a surgical timeout using both pre-incision safety checklist to verify correct patient, procedure site and additional clinical information prior to beginning the procedure Patient has a markedly rounded, markedly protuberant abdomen, diastases of the rectus muscle at the midline roughly about 5 cms at he widest. He has a enlarged umbilical cleft from the soft tissue protrusion from his umbilical hernia roughly about 2.5 cm coming outward. Normal overlying skin. This is reducible but promptly goes back out. We started with the epigastric entry slightly to the left of the midline A small incision was created and a Veress needle was inserted at the subcostal area about the anterior axillary line. Proper placement confirmed with saline drop technique. CO2 insufflation started to pressure of 15 mmHg. An 8 mm robotic trocar was placed under direct vision laparoscope at the same site. Insertion site was inspected for injury found. Site of the umbilical hernia noted. No bowel protruding through it but what looks like preperitoneal fat tissue coming through the defect. Moderate noted diastases more than 6 cm at the level of the umbilicus extending throughout of the midline. Markedly distended urinary bladder noted. Is a very thin peritoneal covering. Attenuated umbilical ligaments as well as falciform ligament. No bowel wall adhesions noted. He was placed in the mild Trendelenburg position.. Under direct visualization 2 working ports ports were placed along the left side and right side of the abdomen widely spaced apart in anticipation of her white peritoneal dissection. I performed a bilateral transversus abdominis plane block with our mixture of 1% lidocaine and 1 4% Marcaine under direct laparoscopic visualization. The [employer] robot tower is then positioned in place and the trochars docked. Instruments were placed under direct vision. I used a robotic scissors connected to monopolar cautery and forceps bipolar forceps connected to a bipolar cord with a 30 robotic laparoscope pointed upwards. I then broke scrub and took control of the camera and instruments at the surgeon's console while my cement tester assistant remain on the field for management of the instruments and the robotic arms as well as of the mesh on my instructions. I started approximately 7 cm superior to the umbilicus. The base of the fal ciform ligament opened up in the cord/vessels coursing through it cauterized. We entered the preperitoneal space and started developing our peritoneal flap extending it laterally on both sides as we approach the umbilical defect.. The peritoneum is notably thin specially on the lateral edges. I first dissected past the hernia to extend the preperitoneal pocket then returned to the incarcerated preperitoneal fat tissue coming through the All sutures and materials, and needles were retrieved. Survey of the abdomen was done to make sure there is no inadvertent injury and no further bleeding from the reduced omentum. The abdomen was deflated. All ports removed. I scrubbed back in and closed the ports with 4-0 Monocryl in a subcuticular fashion. Dermabond was then used for dressing. Patient was then awakened, extubated and brought to recovery room in stable condition. BETSY BARNETT MD Jan 17, 2021 08:13
[2021-01-17] MEDS ORDERED: FUROSEMIDE 20 MG TAB PO SCH (09:00)
--- NOTE | 2021-01-17 09:12 | IPNPDOC ---
Text Note Date of Service The patient was seen on 01/17/21. NOTE General surgery. Dr. Blackmon The patient is an 85-year-old male admitted for bowel obstruction secondary to incarcerated loop of bowel within longstanding umbilical hernia, status post umbilical hernia repair as per Dr. Blackmon 01/16/2021. This morning, the patient reports pain has been controlled. is at the bedside. Nursing states the patient has been up out of bed and ambulating with a walker. He has been tolerating liquids and is having regular diet for b reakfast this morning. Afebrile. VSS Awake and alert, answering questions appropriately this morning. Sitting up in bed. Lungs with good air entry, no wheezing S1-S2 regular rate rhythm Abdomen is soft, mild tenderness around surgical sites, nondistended. All surgical sites are clean/dry/intact WBC 10.0, hemoglobin 11.9 Assessment/plan Bowel obstruction secondary to incarcerated loop of bowel within longstanding umbilical hernia, status post umbilical hernia repair as per Dr. Blackmon 01/16. The patient is reviewed as per Dr. Blackmon this morning. The patient is advanced to regular diet. Continue to encourage out of bed From surgical standpoint would be okay for discharge when medically stable. Continue to keep incisions clean and dry, dry dressing daily. From surgical standpoint, okay to restart Coumadin today. plan for follow-up with general surgery 2 weeks after discharge. VS,Fishbone, I+O VS, Fishbone, I+O Laboratory Tests 01/16/21 09:26 01/17/21 05:51 01/17/21 05:52 Vital Signs Date Time Temp Pulse Resp B/P (MAP) Pulse Ox O2 Delivery O2 Flow Rate FiO2 01/17/21 08:12 92 144/79 01/17/21 07:00 97.8 18 98 Nasal Cannula 2.0 I&O- Last 24 Hours up to 6 AM 01/17/21 05:59 Intake Total 1300 ml Output Total 1010 ml Balance 290 ml Attending Note Attending Note Patient seen and examined. He is postop day 1 from a robotic assisted laparoscopic umbilical hernia repair. This was containing preperitoneal fat tissue which is incarcerated. With the operative finding I am not sure if he really did have a transiently incarcerated small bowel within the hernia. Most likely he only had some sort of ileus. He appears to be doing well. He is relatively comfortable. He looks weak though he was able to independently transfer himself out of bed to a walker. His says he just slept last night after surgery. He is tolerating diet. Abdominal examination shows moderately rounded and mildly distended abdomen some leftover subcutaneous air is noted. No significant skin or soft tissue ecchymosis. He has 3 port sites in the upper abdomen that are covered with Dermabond without any bleeding or drainage. Umbilicus without any significant swelling. Impression and plan Doing well after umbilical hernia repair. I will leave the decision to his medical service when he is fit to go home. I discussed with Sebastian his 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 status. I think we can restart the Plavix today and wait about 48 hours from surgery then he can restart the Coumadin if he still needs it. Unclear on what the indication of the Coumadin is. (Apparently this was for a remote injury to the femoral vessels.) Mickie Mirza Jan 17, 2021 09:12 BETSY BLACKMON MD Jan 17, 2021 12:13
[2021-01-17] MEDS ORDERED: CLOPIDOGREL 75 MG TAB PO SCH (10:30)
[2021-01-17] MEDS ORDERED: WARFARIN SOD 2.5MG TAB PO SCH (10:30)
--- NOTE | 2021-01-17 12:17 | DS.PDOC ---
Discharge Summary General Date of Admission Jan 09, 2021 at 15:26 Date of Discharge 01/17/21 Discharge Summary PROCEDURES PERFORMED DURING STAY: PREPROCEDURE DIAGNOSES: Umbilical hernia. POSTPROCEDURE DIAGNOSES: Umbilical hernia with incarcerated preperitoneal tissue. PROCEDURE PERFORMED: Robotic assisted laparoscopic transabdominal preperitoneal umbilical hernia repair. DATE PERFORMED: 01/16/21 SURGEON: Ayo Barnett MD STOCK AND STATION AGENT: Eliza Medina NP ANESTHESIA: General endotracheal anesthesia. ESTIMATED BLOOD LOSS: Approximately 10 mL. COMPLICATIONS: None. REMARKS: Patient is an 85-year-old gentleman admitted for what appears to initially be bowel obstruction secondary to transiently incarcerated loop of bowel within a longstanding umbilical hernia. Umbilical hernia was reduced in the emergency room. He was on Coumadin and we had his INR normalized. He is brought in today for planned umbilical hernia repair. FINDINGS: Very round protuberant abdomen. Wide diastases of the midline with small pockets of what looks to be fascial defects (subcentimeter). 2 x 1.5 cm fascial defect containing incarcerated preperitoneal fat tissue. Marked distention of the urinary bladder. He was straight cathed after the procedure. SPECIMENS REMOVED: None PROCEDURE NOTE: 10 x 10 cm Bard soft mid weight polypropylene mesh placed in the preperitoneal space. DESCRIPTION OF PROCEDURE: RTAPP Incisional/umbilical hernia R type umbilical hernia R. Pipo umbilical hernia patient has been getting regular doses of Zosyn 3.375 g IV every 6 hours since admission. This was continued perioperatively.. Patient was brought to the operating room, placed supine on the operating table. TEDs and Compression boots placed in both lower extremities for DVT prophylaxis. General endotracheal anesthesia started. Both arms tucked. His abdomen then prepped and draped in the usual sterile fashion. . We paused for a surgical timeout using both pre-incision safety checklist to verify correct patient, procedure site and additional clinical information prior to beginning the procedure Patient has a markedly rounded, markedly protuberant abdomen, diastases of the rectus muscle at the midline roughly about 5 cms at he widest. He has a enlarged umbilical cleft from the soft tissue protrusion from his umbilical hernia roughly about 2.5 cm coming outward. Normal overlying skin. This is reducible but promptly goes back out. We started with the epigastric entry slightly to the left of the midline A small incision was created and a Veress needle was inserted at the subcostal area about the anterior axillary line. Proper placement confirmed with saline drop technique. CO2 insufflation started to pressure of 15 mmHg. An 8 mm robotic trocar was placed under direct vision laparoscope at the same site. Insertion site was inspected for injury found. Site of the umbilical hernia not ed. No bowel protruding through it but what looks like preperitoneal fat tissue coming through the defect. Moderate noted diastases more than 6 cm at the level of the umbilicus extending throughout of the midline. Markedly distended urinary bladder noted. Is a very thin peritoneal covering. Attenuated umbilical ligaments as well as falciform ligament. No bowel wall adhesions noted. He was placed in the mild Trendelenburg position.. Under direct visualization 2 working ports ports were placed along the left side and right side of the abdomen widely spaced apart in anticipation of her white peritoneal dissection. I performed a bilateral transversus abdominis plane block with our mixture of 1% lidocaine and 1 4% Marcaine under direct laparoscopic visualization. The uFaber robot tower is then positioned in place and the trochars docked. Instruments were placed under direct vision. I used a robotic scissors connected to monopolar cautery and forceps bipolar forceps connected to a bipolar cord with a 30 robotic laparoscope pointed upwards. I then broke scrub and took control of the camera and instruments at the surgeon's console while my assistant executive housekeeper remain on the field for management of the instruments and the robotic arms as well as of the mesh on my instructions. I started approximately 7 cm superior to the umbilicus. The base of the falciform ligament opened up in the cord/vessels coursing through it cauterized. We entered the preperitoneal space and started developing our peritoneal flap extending it laterally on both sides as we approach the umbilical defect.. The peritoneum is notably thin specially on the lateral edges. I first dissected past the hernia to extend the preperitoneal pocket then returned to the incarcerated preperitoneal fat tissue coming through the All sutures and materials, and needles were retrieved. Survey of the abdomen was done to make sure there is no inadvertent injury and no further bleeding from the reduced omentum. The abdomen was deflated. All ports removed. I scrubbed back in and closed the ports with 4-0 Monocryl in a subcuticular fashion. Dermabond was then used for dressing. Patient was then awakened, extubated and brought to recovery room in stable condition. Addendum: AYO BARNETT MD on 01/19/21 @ 07:28 This follows the and of the second to the last paragraph Umbilical fascial defect. We decided to defect the preperitoneal fat tissue was moderately bulky. After full reduction we continued creating our peritoneal flap 7 cm distally all around to create an adequate preperitoneal pocket. Bleeding points were cauterized. The primary umbilical fascial defect was closed with 0 strata fix in a running fashion oriented transversely and then coming back towards the midline in anticipation that I will use this to secure the mesh. The bottom of the umbilical cleft was likewise tacked to the fascia to recreate the cleft. I had my assistant executive housekeeper obtain a 15 x 15 cm Bard soft mesh and fashioned a 10 x 10 cm mesh from it. The mesh was introduced into the abdomen and placed in the preperitoneal pocket centered on the umbilicus and then secured at the midline with the 0 strata fix. I used out 6 interrupted sutures of 2-0 Vicryl to tack the mesh to the abdominal wall at the cardinal corners and wear the abdominal contour is pushing down on the mesh. The abdominal pressure was then brought down to as low as 4 mmHg as a close the peritoneal flap with 2 running sutures of 3 oh V-Loc. Due to the thinness of the lateral edges I started at the midline and then goes towards the lateral edges. The area in the pocket of the peritoneum was aspirated to make sure the mesh is flattened and have the mesh adhered in both sides to the peritoneum and transversalis fascia. 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 HISTORY OF PRESENT ILLNESS: Mr. Atwood is an 85-year-old male with recent pacemaker placement and valve replacement who presents with abdominal pain and dyspnea. Patient is a poor historian and most of the history is obtained from . 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 Since then he is been having episodes of dyspnea. His primary recently put him on antibiotics and steroids and he recently finished it. He did have a bout of diarrhea but that resolved shortly after. About a week and a half ago, patient was having abdominal pain. was wondering if his shorts was too tight around his waist and was pressing on his umbilical hernia. was saying his appetite was poor and he did not eat much. When I saw him in the ED, he was very pleasant but a poor historian. On exam, his abdomen felt full. At one point I thought he was guarding, but he told me that he was not. He had some tenderness. Imaging demonstrated possible SBO versus ileus. On imaging, I could see the bowel going into his umbilical hernia. I reached out to general surgery, Dr. Barnett. He could see patient's bowel contents being backed up to the stomach and esophagus. Recommended NG tube placement. With NG tube placement, removed 1.7 liters of gastric content. Patient felt relief in his abdomen was softer. Otherwise, there is question if the patient had sepsis. Patient had leukocytosis with tachypnea and altered mental status. tells me that generally he is pretty sharp and patient did not know the year and thought we were in [place]. Patient also had lactic acidosis. Patient will be admitted for SBO and sepsis HOSPITAL COURSE: 1. Small bowel obstruction Possibly from his umbilical hernia General surgery consulted, recommendations appreciated Patient did well with NG tube. NG tube now removed. Status post hernia repair by Dr. Barnett on 01/16/2021 -Cleared for DC by surgery service. 2. SIRS Patient meets SIRS criteria with altered mental status and tachypnea Patient also has lactic acidosis and leukocytosis Unclear etiology, pending blood cultures. Possibly from his SBO UA positive for 1+ leuk esterase and 1+ bacteria. Urine culture did not have any growth completed 7 days of zosyn. C/w additional 7 days of augmentin 875 mg PO BID on DC 3. GIOVANNY Suspect patient's baseline creatinine to be at 1 Creatinine on admission was 1.76 likely 2/2 pre-renal cause, as patient had appeared clinically dry. Renal function returned to baseline. Discontinue IVF 4. Hypothyroidism TSH was mildly elevated at 5.88. Due to patient's SBO, patient may have not been absorbing levothyroxine Continue p.o. levothyroxine 5. Hypertension Continue p.o. atenolol 6. Hyperlipidemia Continue p.o. atorvastatin 7. Glaucoma Continue brimonidine and latanoprost 8. GERD Switched from IV PPI to oral PPI 9. 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 tells me the same. They cannot tell me why he is on Coumadin d/w Dr. Barnett, can resume plavix post op. Hold coumadin for 48 hours post op. INR improved DISCHARGE MEDICATIONS: Please see below. ALLERGIES: Please see below. PHYSICAL EXAMINATION ON DISCHARGE: VITAL SIGNS: please see below General: NAD, comfortable HEENT: PERRLA, EOMI, sclerae clear Neck: supple, normal ROM, no JVD Respiratory: lungs CTAB, no wheeze, no rales, no crackles CVS: RRR, normal S1, S2, no murmurs Abdo: soft, no masses, no hepatosplenomegaly, BS+, no rebound tenderness, laparoscopic incisions clean, dry dressing Extremities: no edema, pulses 2+ MSK: no joint deformities, normal ROM Neuro: no focal neuro deficits, moving all 4 extremities, CN2-12 intact. Strength 5/5 in all 4 extremities. No nystagmus. Psych: calm, cooperative, AAO x 3 LABORATORY DATA: Please see below. IMAGING: CT abdo pelvis wo contrast (01/09/21): IMPRESSION: 1. Small bowel obstruction versus ileus. 2. Small amounts of free fluid. 3. Simple left renal cyst. 4. Small ventral hernia. 5. Other findings as described above. CXR (01/11/21): IMPRESSION: Likely mild ileus. No definite evidence of intestinal obstruction. Follow-up is suggested. PROGNOSIS: good ACTIVITY: per ARU DIET: as tolerated DISCHARGE PLAN: 1. continue augmentin 875 mg BID x 7 days 2. Continue plavix 75 mg daily 3. resume warfarin 2.5 mg on 01/17/21 at 1700 (48 hours post-op). Goal INR 2- 3. Indication is a femoral artery injury ~30 years ago, and vascular surgery has always recommended he be anticoagulated for life (per PCP Dr. Tristan). DISPOSITION: ARU DISCHARGE CONDITION: [Stable]. TIME SPENT ON DISCHARGE: 35 minutes Vital Signs/I&Os Vital Signs Date Time Temp Pulse Resp B/P (MAP) Pulse Ox O2 Delivery O2 Flow Rate FiO2 01/17/21 09:38 99 Room Air 01/17/21 08:12 92 144/79 01/17/21 07:00 97.8 18 2.0 I&O- Last 24 Hours up to 6 AM 01/17/21 06:00 Intake Total 1780 ml Output Total 1010 ml Balance 770 ml Laboratory Data Labs 24H Laboratory Tests 2 01/17/21 05:51: Nucleated Red Blood Cells % (auto) 0.0 01/17/21 05:52: Anion Gap 4L, Glomerular Filtration Rate > 60.0, Calcium Level 9.0 CBC/BMP Laboratory Tests 01/17/21 05:51 01/17/21 05:52 Microbiology Microbiology 01/09/21 Urine Culture - Final, Complete 01/09/21 Blood Culture - Final, Complete NO GROWTH AFTER 5 DAYS 01/09/21 Blood Culture - Final, Complete NO GROWTH AFTER 5 DAYS 01/09/21 Respiratory Virus Panel (PCR) (CLAUDIA) - Final, Complete Discharge Medications Scheduled Amoxicillin/Potassium Clav (Augmentin 875-125 Tablet) 1 Each Tablet, 1 TAB PO BID Atenolol (Atenolol) 25 Mg Tablet, 25 MG PO DAILY, (Reported) Atorvastatin Calcium (Atorvastatin Calcium) 40 Mg Tab, 40 MG PO QHS, (Reported) Brimonidine Tartrate (Alphagan P) 100 Drop/5 Ml Soln, 1 DRP OU QAM, (Reported) Clopidogrel Bisulfate (Clopidogrel) 75 Mg Tablet, 75 MG PO DAILY, (Reported) Furosemide (Furosemide) 20 Mg Tab, 20 MG PO DAILY, (Reported) Latanoprost (Xalatan) 0.005% 2.5ML Drops, 1 DROP OU QPM, (Reported) Levothyroxine Sodium (Levothyroxine Sodium) 75 Mcg Tab, 75 MCG PO DAILY, (Reported) Magnesium Oxide (Magnesium) 400 Mg Capsule, 400 MG PO DAILY for constipation, (Reported) Omeprazole (Omeprazole) 20 Mg Capsule.dr, 20 MG PO DAILY, (Reported) Potassium Chloride (K-Tab ER) 10 Meq Tablet.er, 1 TAB PO DAILY, (Reported) Salmeterol/Fluticasone (Advair 250-50 Diskus) 14 Puff/Inhaler Aerp, 1 PUFF INH BID, (Reported) Scheduled PRN Acetaminophen (Acetaminophen) 325 Mg Tab, 650 MG PO DAILY PRN for PAIN LEVEL 1- 4, (Reported) Albuterol Sulfate (Proair Hfa) 8.5 Gm Hfa.aer.ad, 2 PUFF INH QID PRN for SOB/WHEEZING, (Reported) Alprazolam (Xanax) 0.25 Mg Tablet, 0.25 MG PO BID PRN for anxiety, (Reported) Oxycodone/Acetaminophen (Oxycodone-Acetaminophen 5-325) 1 Each Tablet, 1 TAB PO Q4HP PRN for MODERATE PAIN (PS 5-7) Allergies Coded Allergies: diphenhydramine (Verified Allergy, Severe, SWELLING, 01/09/21) FISH (Verified Allergy, Unknown, 06/14/08) POULTRY (Verified Allergy, Unknown, DARK MEAT, 06/14/08) bacitracin (Verified Allergy, Unknown, 01/09/21) dorzolamide (Verified Allergy, Unknown, 01/09/21) neomycin (Verified Allergy, Unknown, 01/09/21) polymyxin B (Verified Allergy, Unknown, 01/09/21) shellfish derived (Verified Allergy, Unknown, 01/16/21) timolol (Verified Allergy, Unknown, 01/09/21) valsartan (Verified Allergy, Unknown, 01/09/21) ESTEBAN FREEDMAN MD Jan 17, 2021 12:17
[2021-01-17] MEDS ORDERED: PERCOCET PO (12:24)
[2021-01-17] MEDS ORDERED: AUGM875T28 PO (12:24)
== END 2021-01-17 15:34 | DRG 354 ==
LOC: M ED 11:19 → M ED INP 15:26 → ENRESERV 16:45 → M PCU 17:58 → M MSPAV 01-13 14:35
PROVIDERS: ADMIT Internal Medicine; ATTEND Family Medicine
PROC: 0WUF4JZ Supplement Abdominal Wall with Synthetic Substitute, Percutaneous Endoscopic Approach (ICD-10-PCS; 2021-01-16)
PROC: 0WQF4ZZ Repair Abdominal Wall, Percutaneous Endoscopic Approach (ICD-10-PCS; principal; 2021-01-16 16:35)
DX: K42.0 Umbilical hernia with obstruction, without gangrene (principal); N17.9 Acute kidney failure, unspecified; R65.10 Systemic inflammatory response syndrome (SIRS) of non-infectious origin without acute organ dysfunction; E03.9 Hypothyroidism, unspecified; I10 Essential (primary) hypertension; K21.9 Gastro-esophageal reflux disease without esophagitis; H40.9 Unspecified glaucoma; Z79.01 Long term (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s; Z95.0 Presence of cardiac pacemaker; E78.5 Hyperlipidemia, unspecified; Z79.899 Other long term (current) drug therapy; Z91.013 Allergy to seafood; Z91.018 Allergy to other foods; Z88.8 Allergy status to other drugs, medicaments and biological substances; K57.30 Diverticulosis of large intestine without perforation or abscess without bleeding; Z95.2 Presence of prosthetic heart valve; Z87.891 Personal history of nicotine dependence

== ENCOUNTER 2021-01-17 13:01 | Inpatient (IN) | payer MEDICARE ==
[~2021-01-17] VITALS: Ht 160 cm; Wt 60.4 kg
[~2021-01-17 13:01] MED LIST changes: +ATEN25TA PO; +AUGM875T28 PO; +CLOP75TA2 PO; +K-TA10TA2 PO; +MAGN400C PO; +OMEP-218 PO; +PERCOCET PO; +PROAAER10 INH; +WARF-23 PO; +XALA0.007 OU; +XANA0.25 PO
[2021-01-17] MEDS ORDERED: SIMETHICONE 80MG CHEW TAB PO PRN (14:10)
[2021-01-17] MEDS ORDERED: ONDANSETRON 4 MG TAB PO PRN (14:10)
[2021-01-17] MEDS ORDERED: HOME MED LIST COMPLETE! XX SCH (14:55)
[2021-01-17 15:35] VITALS: BP 141/68
[2021-01-17] MEDS ORDERED: ACETAMINOPHEN TAB 650MG DOSE (2X325MG) PO PRN (16:15)
[2021-01-17] MEDS ORDERED: ALBUTEROL 90 MCG/ACT 8GM HFA INHALER INH PRN (16:15)
[2021-01-17] MEDS ORDERED: PERCOCET 5MG/325MG TAB PO PRN (16:15)
[2021-01-17] MEDS: MIRALAX *UNIT DOSE* 17GM PACKET PO SCH (16:54)
--- NOTE | 2021-01-17 16:55 | HPEPDOC ---
Rn Homecare Note DATE OF ADMISSION: 01.17.2021 DATE OF SERVICE: 01.17.2021 TIME OF ADMISSION: Please refer to physician's admission order. SOURCE OF ADMISSION INFORMATION: Medical Records and Patient ADMITTING DIAGNOSES: Status post small bowel obstruction with repair of incarcerated umbilical hernia 01.16.2021 Delirium Leukocytosis. Anemia Sepsis. Multiple Compression fractures thoracic spine. CHF Dependent edema. Pleural effusion Emphysema. Status post UTI GIOVANNY Hypothyroidism. Hypertension. Hyperlipidemia. Glaucoma. GERD. Vascular abnormality Right femoral artery requiring long-term anticoagulation CHIEF COMPLAINT: . 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 He was admitted to [facility] on 01/09/2021 after a week of escalating abdominal pain, poor appetite, full expanding abdomen causing mid girth discomfort with clothing. Imaging revealed multiple thoracic compression fractures as well as incarcerated bowel in the umbilical hernia with contents tracing into the stomach and esophagus. NG tube was placed removing 1.7 L of gastric content, he was also found to have le ukocytosis with tachypnea, lactic acidosis, right pleural effusion, sepsis with altered mental status. He was on chronic Coumadin that had to be normalized and eventually underwent robotic assisted laparoscopic evaluation and treatment, including placement of 10 x 10 cm [place] soft [place] polypropylene mesh by Dr. Barnett 01.16.2021 for incarcerated loops of bowel in long-standing umbilical hernia and small bowel obstruction. Intraoperatively significant diastases, greater than 6 cm at the level of umbilicus extending throughout the midline, was noted along with significant bladder distention and postoperatively he has been incontinent of bowel and bladder function. Postoperatively patient stabilized is been able to participate in PT OT with desire to return home optimal level of function. He believes he may have had a BM yesterday, was progressed to a regular diet this morning, however, only taking limited amounts of food. There have been challenges with pain management, generalized weakness, motor control and motor planning. Patient is able and will benefit from continued skilled PT and OT to further progress independence and safety with mobility tasks. Patient qualifies by functional medical criteria for comprehensive inpatient rehabilitation treatment, including interdisciplinary care with PT, OT and rehabilitation nursing. Rehabilitative physician management. The patient has ADLs, self-care, mobility goals consistent with obtaining proficiency safety to permit a safe disposition home. REVIEW OF SYSTEMS: The following is a completed review of systems and has been reviewed. Review of systems otherwise unremarkable. PAIN: abdominal pain. EYES: No recent vision changes. EARS, NOSE, & THROAT: No throat pain, or dysphagia, or rhinorrhea. CARDIOVASCULAR: Denies chest pain or palpitations. PULMONARY: has had shortness of breath, improved with cardiovascular interventions GASTROINTESTINAL: Challenges with incontinence GENITOURINARY: . Challenges with incontinence MUSCULOSKELETAL: . Multiple thoracic Compression fractures NEUROLOGICAL:. Denies seizures, headaches or other neurological dysfunction HEMATOLOGICAL admits chronic right lower extremity vascular challenges requiring chronic anticoagulation: . SKIN: .denies bruising or rashes PSYCHIATRIC: Unremarkable. All other review of systems found to be negative. PAST MEDICAL HISTORY: Barretts esophagus. Diverticular disease: Hypertension. Hypercholesterolemia Left renal cyst Umbilical hernia Femoral artery injury 1989 with lifetime anticoagulation recommended by vascular surgeons PAST SURGICAL HISTORY: Cardiac stent. Pacemaker placement. Valvular replacement s/p Bilateral TKR ALLERGIES: Multiple.Please see below. MEDICATIONS: Please see below. FAMILY HISTORY: Father 90, mother in 80s. Positive family history of cardiac issues . SOCIAL HISTORY: . Former Smoker, no EtOH, lives in a 2step entrance 2 story home. DIET: No added salt PHYSICAL EXAMINATION: VITAL SIGNS: Please see below. GENERAL: Pleasantly confused but cooperative. Able to follow one-step commands. No acute distress. Alert and oriented to person, place, year and end of Month, closest holiday Thanksgiving. HEENT: Pupils pinpoint, reactive, Extraocular movements intact. Clear conjunctiva, no adenopathy or thyromegaly. Bulbous hypertrophic nose with deviated septum, oropharynx dry mucosa, poor dentition, Full cervical range of motion without tenderness or spasm. CARDIOVASCULAR: Regular rate and rhythm. I/ murmur, pacemaker present L pectoral region. LUNGS: Clear to auscultation bilaterally. No wheezes. No rhonchi. ABDOMEN: Soft, generalized tenderness, healing laparoscopic port sites right upper and lateral region, mildly distended. Positive normal active bowel sounds, no organomegaly. NEUROLOGICAL: Cranial nerves II through XII intact. Sensation grossly intact. 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 No peripheral edema, DP faint. FROM bilateral shoulders, elbows, OA changes, full rpg programmer analyst bilateral hands. SPINE: no point tenderness TL region SKIN: .Healing Laparoscopy sites, dry with poor turgor. LABORATORY DATA: Please see below. IMAGING:Imaging documentation personally reviewed by record. FUNCTIONAL STATUS: Premorbid: Independent with all activities of daily life as well as mobility. On Admission: Currently incontinent of bowel and bladder is moderate assistance for shower bathing, lower body dressing is able to walk 80 feet with standby to supervision assistance. Modified independence for social interaction, expression, comprehension, bowel and bladder. 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 PLAN: 1. Rehab- PT/OT advance gait and ADls, strengthen/stretch/maintain ROM all 4 limbs. We'll continue to work on timing pain medication with therapy interventions to optimize possible capacity to participate. Well implement use of an abdominal binder to support postoperative area during exercise and transfer activities 2. Neuro- monitor mentation, adjust medications limited polypharmacy 3. Ortho- therapeutic modalities. Again, abdominal binder/lumbosacral corset may be helpful for the spinal component of his pain and stabilize compression fractures 4. Cardiac- status post stent, hypertension, hyperlipidemia, status post pacemaker/valve replacement. 10/10/2020, monitor symptoms, pulse oximeter during exercise activities -HTN -continue meds. IM to co follow -HLD- continue meds. IM to col follow 5. Resp -incentive spirometry, monitor for infection 6. Endo- Hypothyroidism, replacement meds 7. - possible neurogenic bladder, Bladder scan [id number] and catheterize for >400 cc if Pt unable to void on own, check PVRs and catheterize for >300cc, may stop all scans if PVRs are <200 cc on 3 consecutive occasions. 8. GI ppx- PPI. May be experiencing possible neurogenic bowel, monitor and schedule laxatives, possible need for bowel program with suppository QOD POST ADMISSION PHYSICIAN EVALUATION: Medical and functional status: Description of medical status, medical assessment: As above. Rehabilitation diagnosis and current and prior co- morbid medical conditions as above. Risk of complications and plans to mitigate them as above. Description of functional status current status is as above. Prior status as above. Status compared to preadmission: There are no clinically significant differences between the patient's current status and the information described on the preadmission screening document. Treatment plan anticipated: Treatment plan is as described above. Required disciplines including physical therapy, occupational therapy, others as noted above]. Intensity of services: 3 hours a day, 6-7 days a week. Special considerations: There are no specific special or safety considerations that would likely preclude immediate implementation of an intensive rehabilitation program or subsequently influence the plan of care. ATTESTATION: Considering all the information above, it is my best judgment that this patient requires intensive rehabilitation therapy as described above and an inpatient hospital environment due to the complexity of nursing, medical, and rehabilitation needs required by the patient. Furthermore, this patient can reasonably be expected to participate in an benefit from an inpatient rehabilitation stay with an interdisciplinary team approach to the delivery of rehabilitation care under the direction and supervision of rehabilitation physician. PROGNOSIS: Excellent. ESTIMATED LENGTH OF STAY:7-10 days. PROJECTED DISCHARGE DESTINATION: Home with family support and any durable medical equipment required to increase functional safety and mobility. TIME SPENT COUNSELING AND COORDINATING INITIAL CARE: Greater than 60 minutes. This document is generated using speech recognition software which may result in grammatical, typographical and individual word errors. Vital Signs Vital Sign - Last 24 Hours 01/17/21 15:35 Temp 98.6 Pulse 76 Resp 16 B/P (MAP) 141/68 (92) Pulse Ox 95 O2 Delivery Room Air Laboratory Data CBC/BMP Vital Signs Date Time Temp Pulse Resp B/P (MAP) Pulse Ox O2 Delivery O2 Flow Rate FiO2 01/17/21 15:35 98.6 76 16 141/68 (92) 95 Room Air Home Medications Scheduled Amoxicillin/Potassium Clav (Augmentin 875-125 Tablet) 1 Each Tablet, 1 TAB PO BID Atenolol (Atenolol) 25 Mg Tablet, 25 MG PO DAILY, (Reported) Atorvastatin Calcium (Atorvastatin Calcium) 40 Mg Tab, 40 MG PO QHS, (Reported) Brimonidine Tartrate (Alphagan P) 100 Drop/5 Ml Soln, 1 DRP OU QAM, (Reported) Clopidogrel Bisulfate (Clopidogrel) 75 Mg Tablet, 75 MG PO DAILY, (Reported) Furosemide (Furosemide) 20 Mg Tab, 20 MG PO DAILY, (Reported) Latanoprost (Xalatan) 0.005% 2.5ML Drops, 1 DROP OU QPM, (Reported) Levothyroxine Sodium (Levothyroxine Sodium) 75 Mcg Tab, 75 MCG PO DAILY, (Reported) Magnesium Oxide (Magnesium) 400 Mg Capsule, 400 MG PO DAILY, (Reported) Omeprazole (Omeprazole) 20 Mg Capsule.dr, 20 MG PO DAILY, (Reported) Potassium Chloride (K-Tab ER) 10 Meq Tablet.er, 1 TAB PO DAILY, (Reported) Salmeterol/Fluticasone (Advair 250-50 Diskus) 14 Puff/Inhaler Aerp, 1 PUFF INH BID, (Reported) Scheduled PRN Acetaminophen (Acetaminophen) 325 Mg Tab, 650 MG PO DAILY PRN for PAIN LEVEL 1- 4, (Reported) Albuterol Sulfate (Proair Hfa) 8.5 Gm Hfa.aer.ad, 2 PUFF INH QID PRN for SO B/WHEEZING, (Reported) Alprazolam (Xanax) 0.25 Mg Tablet, 0.25 MG PO BID PRN for anxiety, (Reported) Oxycodone/Acetaminophen (Oxycodone-Acetaminophen 5-325) 1 Each Tablet, 1 TAB PO Q4HP PRN for MODERATE PAIN (PS 5-7) Allergies Coded Allergies: diphenhydramine (Verified Allergy, Severe, SWELLING, 01/09/21) FISH (Verified Allergy, Unknown, 06/14/08) POULTRY (Verified Allergy, Unknown, DARK MEAT, 06/14/08) bacitracin (Verified Allergy, Unknown, 01/09/21) dorzolamide (Verified Allergy, Unknown, 01/09/21) neomycin (Verified Allergy, Unknown, 01/09/21) polymyxin B (Verified Allergy, Unknown, 01/09/21) shellfish derived (Verified Allergy, Unknown, 01/16/21) timolol (Verified Allergy, Unknown, 01/09/21) valsartan (Verified Allergy, Unknown, 01/09/21) A-FIB/CHADSVASC A-FIB History Current/History of A-Fib/PAF?: No Current PO Anticoag Therapy: Yes Age/Risk Factor Scoring CHADSVASC: CHADSVASC Response (Comments) Value Age Risk Factor Age >/= 75 years old 2 Total 2 Treatment Treatment ordered: Holding Warfarin Other 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 ordered: plavix AYANNA MCCONNELL MD Jan 17, 2021 16:55
[2021-01-17 20:00] VITALS: BP 127/67
[2021-01-17] MEDS: ADVAIR HFA 115/21MCG INHALER INH SCH (20:15)
[2021-01-17] MEDS: AUGMENTIN 875 MG TAB PO SCH (20:35)
[2021-01-17] MEDS: ATORVASTATIN 20 MG TAB PO SCH (20:35)
[2021-01-17] MEDS: SENOKOT S TAB PO SCH (20:35)
[2021-01-17] MEDS: LATANOPROST 0.005% OPHTH SOLN 2.5 ML OU SCH (20:35)
[2021-01-18] MEDS: ACETAMINOPHEN TAB 650MG DOSE (2X325MG) PO PRN (05:31)
[2021-01-18] MEDS: LEVOTHYROXINE 75MCG TABLET (0.075MG) PO SCH (05:31)
[2021-01-18 06:00] VITALS: BP 152/74
[2021-01-18 06:36] LABS: BASO # 0.1 10^3/uL (0.0-0.2); BASO % 0.6 % (0.0-1.0); EOS # 0.3 10^3/uL (0.0-0.5); EOS % 2.4 % (0.0-3.0); HEMATOCRIT 37.4 % (42.0-52.0); HEMOGLOBIN 11.7 g/dl (13.5-17.5); LYMPH # 1.4 10^3/uL (1.5-5.0); LYMPH % 11.3 % (24.0-44.0); MEAN CORPUSCULAR HEMOGLOBIN 26.3 pg (27.0-33.0); MEAN CORPUSCULAR HGB CONC 31.3 g/dl (32.0-36.5); MONO # 1.2 10^3/uL (0.0-0.8); MONO % 9.7 % (2.0-8.0); NEUTROPHILS # 9.6 10^3/uL (1.5-8.5); NEUTROPHILS % 75.6 % (36.0-66.0); PLATELET COUNT, AUTOMATED 239 10^3/uL (150-450); RED BLOOD COUNT 4.45 10^6/uL (4.30-6.10); WHITE BLOOD COUNT 12.7 10^3/uL (4.0-10.0)
[2021-01-18 06:57] LABS: ALBUMIN 2.9 GM/DL (3.2-5.2); ALT/SGPT 11 U/L (12-78); BILIRUBIN,TOTAL 0.6 MG/DL (0.2-1.0); BLOOD UREA NITROGEN 13 MG/DL (7-18); CARBON DIOXIDE LEVEL 26 MEQ/L (21-32); CHLORIDE LEVEL 108 MEQ/L (98-107); CREATININE FOR GFR 1.05 MG/DL (0.70-1.30); GLOMERULAR FILTRATION RATE > 60.0 (>35); GLUCOSE, FASTING 73 MG/DL (70-100); POTASSIUM SERUM 3.4 MEQ/L (3.5-5.1); SODIUM LEVEL 141 MEQ/L (136-145); TOTAL PROTEIN 6.4 GM/DL (6.4-8.2)
[2021-01-18] MEDS: ADVAIR HFA 115/21MCG INHALER INH SCH ×2 (07:09→21:12)
--- NOTE | 2021-01-18 07:46 | IPNPDOC ---
Date Seen The patient was seen on 01/18/21. Progress Note SUBJECTIVE: seen and examined at bedside. doing well. no acute events overnight. OBJECTIVE PHYSICAL EXAMINATION: VITAL SIGNS: please see below General: NAD, comfortable HEENT: PERRLA, EOMI, sclerae clear Neck: supple, normal ROM, no JVD Respiratory: lungs CTAB, no wheeze, no rales, no crackles CVS: RRR, normal S1, S2, no murmurs Abdo: soft, no masses, no hepatosplenomegaly, BS+, no rebound tenderness Extremities: no edema, pulses 2+ MSK: no joint deformities, normal ROM Neuro: no focal neuro deficits, moving all 4 extremities, CN2-12 intact. Strength 5/5 in all 4 extremities. No nystagmus. Psych: calm, cooperative, AAO x 3 LABORATORY DATA, IMAGING STUDIES, MICROBIOLOGY: Please see below. DVT prophylaxis ordered?: SCDs. TEDs. Warfarin resumed on 01/18/21. ASSESSMENT AND PLAN: Mr. Atwood is an 85-year-old male with recent pacemaker placement and valve replacement who presents with abdominal pain and dyspnea. Patient has known umbilical hernia which ED was able to reduce. Patient's abdomen felt full and he had tenderness. NG tube was placed and he felt better. Imaging suggested SBO. General surgery decided for hernia repair. He is POD #2. He was discharged to ARU for ongoing rehab. PROBLEMS: 1. Small bowel obstruction Possibly from his umbilical hernia General surgery consulted, recommendations appreciated Status post hernia repair by Dr. Barnett - cleared for DC by surgery. Was cleared to resume plavix on 01/17/21. - to resume warfarin today on 01/18/21 at 1700 (48 hours post-op) 2. SIRS Patient meets SIRS criteria with altered mental status and tachypnea Patient also has lactic acidosis and leukocytosis Urine and blood final cultures negative. Possibly from his SBO UA positive for 1+ leuk esterase and 1+ bacteria. Urine culture did not have any growth completed 7 days of zosyn - to continue with 7 days of augmentin PO 3. GIOVANNY - resolved prior to DC to ARU. 4. Hypothyroidism TSH was mildly elevated at 5.88. Due to patient's SBO, patient may have not been absorbing levothyroxine Continue p.o. levothyroxine - repeat TFTs 4 weeks after DC. 5. Hypertension Continue p.o. atenolol 6. Hyperlipidemia Continue p.o. atorvastatin 7. Glaucoma Continue brimonidine and latanoprost 8. GERD Switched from IV PPI to oral PPI 9. Long-term 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 use/supratherapeutic INR - indicated for coumadin was unclear, family reports it is taken after a femoral artery injury many years ago, and was recommended by vascular surgery to paola hare with warfarin - I spoke to Dr. Tristan (PCP), who confirmed the same - cleared by surgery to resume warfarin on 01/18/21. 10. DVT prophylaxis - SCDs, TEDs - resume warfarin on 01/18/21 VS, I&O, 24H, Fishbone Vital Signs/I&O Vital Signs Date Time Temp Pulse Resp B/P (MAP) Pulse Ox O2 Delivery O2 Flow Rate FiO2 01/18/21 06:00 97.8 85 18 152/74 (100) 97 Room Air I&O- Last 24 Hours up to 6 AM 01/18/21 06:00 Intake Total 340 ml Balance 340 ml Laboratory Data 24H LABS Laboratory Tests 2 01/18/21 05:59: Immature Granulocyte % (Auto) 0.4, Neutrophils (%) (Auto) 75.6H, Lymphocytes (%) (Auto) 11.3L, Monocytes (%) (Auto) 9.7H, Eosinophils (%) (Auto) 2.4, Basophils (%) (Auto) 0.6, Neutrophils # (Auto) 9.6H, Lymphocytes # (Auto) 1.4L, Monocytes # (Auto) 1.2H, Eosinophils # (Auto) 0.3, Basophils # (Auto) 0.1, Nucleated Red Blood Cells % (auto) 0.0, Anion Gap 7L, Glomerular Filtration Rate > 60.0, Calcium Level 9.0, Total Bilirubin 0.6, Aspartate Amino Transf (AST/SGOT) 18, Alanine Aminotransferase (ALT/SGPT) 11L, Alkaline Phosphatase 94, Total Protein 6.4, Albumin 2.9L, Albumin/Globulin Ratio 0.8 CBC/BMP Laboratory Tests 01/18/21 05:59 ESTEBAN FREEDMAN MD Jan 18, 2021 07:46
[2021-01-18] MEDS ORDERED: MAGNESIUM OXIDE 400MG TAB (MAG-OX) PO SCH (09:00)
[2021-01-18] MEDS ORDERED: OMEPRAZOLE 20 MG CAP PO SCH (09:00)
[2021-01-18] MEDS: MIRALAX *UNIT DOSE* 17GM PACKET PO SCH (09:00)
[2021-01-18] MEDS: SENOKOT S TAB PO SCH ×2 (09:00→20:57)
[2021-01-18] MEDS: CLOPIDOGREL 75 MG TAB PO SCH (09:50)
[2021-01-18] MEDS: atenoloL 25 MG TAB PO SCH (09:50)
[2021-01-18] MEDS: AUGMENTIN 875 MG TAB PO SCH ×2 (09:50→20:57)
[2021-01-18] MEDS: OMEPRAZOLE 20 MG CAP PO SCH (09:50)
[2021-01-18] MEDS: POTASSIUM CHLORIDE 10MEQ SR TABLET PO SCH (09:50)
[2021-01-18] MEDS: BRIMONIDINE 0.1% OPHTH SOLN 5 ML OU SCH (09:51)
[2021-01-18] MEDS: ALPRAZolam 0.25 MG TAB PO PRN (09:51)
[2021-01-18] MEDS: FUROSEMIDE 20 MG TAB PO SCH (09:51)
[2021-01-18 14:00] VITALS: BP 138/86
--- NOTE | 2021-01-18 16:30 | IPNPDOC ---
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 He was admitted to [facility] on 01/09/2021 after a week of escalating abdominal pain, poor appetite, full expanding abdomen causing mid girth discomfort with clothing. Imaging revealed multiple thoracic compression fractures as well as incarcerated bowel in the umbilical hernia with contents tracing into the stomach and esophagus. NG tube was placed removing 1.7 L of gastric content, he was also found to have leukocytosis with tachypnea, lactic acidosis, right pleural effusion, sepsis with altered mental status. He was on chronic Coumadin that had to be normalized and eventually underwent robotic assisted laparoscopic evaluation and treatment, including placement of 10 x 10 cm [place] soft [place] polypropylene mesh by Dr. Barnett 01.16.2021 for incarcerated loops of bowel in long-standing umbilical hernia and small bowel obstruction. Intraoperatively significant diastases, greater than 6 cm at the level of umbilicus extending throughout the midline, was noted along with significant bladder distention and postoperatively he has been incontinent of bowel and bladder function. Postoperatively patient emilia diamond is been able to participate in PT OT with desire to return home at optimal level of function. 01.08.2021 Patient acclimating well, cognitive challenges and general disorientation noted by team, confirmed by . Having greater success with continence of bowel and bladder, but a bit impulsive. Minimal complaints of pain. Nursing notes several near liquid stools overnight. Tolerating full liquids. REVIEW OF SYSTEMS: The following is a completed review of systems and has been reviewed. Review of systems otherwise unremarkable. PAIN: abdominal pain improving. EYES: No recent vision changes. EARS, NOSE, & THROAT: No throat pain, or dysphagia, or rhinorrhea. CARDIOVASCULAR: Denies chest pain or palpitations. PULMONARY: has had shortness of breath, improved with cardiovascular interventions GASTROINTESTINAL: Challenges with incontinence GENITOURINARY: . Challenges with incontinence MUSCULOSKELETAL: . Multiple thoracic Compression fractures NEUROLOGICAL:.altered mentation HEMATOLOGICAL: no bleeding or bruising SKIN: .healing laparoscopy ports PSYCHIATRIC: Unremarkable. All other review of systems found to be negative. ALLERGIES: See Below MEDICATIONS: Reviewed, see below. OBJECTIVE: VITAL SIGNS: Please see below. GENERAL: Pleasantly confused but cooperative. No acute distress. Alert and oriented to person, place. HEENT: Extraocular movements intact. Clear conjunctiva, no adenopathy or thyromegaly. Bulbous hypertrophic nose with deviated septum, oropharynx dry mucosa, poor dentition, Full cervical range of motion without tenderness or spasm. CARDIOVASCULAR: Regular rate and rhythm. I/ murmur, pacemaker present L pectoral region. LUNGS: Clear to auscultation bilaterally. No wheezes. No rhonchi. ABDOMEN: Soft, generalized tenderness, healing laparoscopic port sites right upper and lateral region, mildly distended. Positive normal active bowel sounds, no organomegaly. NEUROLOGICAL: Cranial nerves II through XII intact. Sensation grossly intact. EXTREMITIES: 5 /5 judge, elbow flexion, elbow extension, knee extension, foot dorsiflexion, plantar flexion. No peripheral edema, DP faint. FROM bilateral shoulders, elbows, OA changes, full judge bilateral hands. SPINE: no point tenderness TL region SKIN: .Healing Laparoscopy sites, better turgor. FUNCTIONAL STATUS: Ambulating with contact-guard assist with gait belt noted to be confused. LABORATORY DATA: Reviewed. Please see below. MICROBIOLOGY: See below ASSESSMENT AND PLAN: DIAGNOSES: Status post small bowel obstruction with repair of incarcerated umbilical hernia 01.16.2021 Delirium Leukocytosis. Anemia Sepsis. Multiple Compression fracture thoracic spine. CHF Dependent edema. hematoma. Head Pleural effusion Emphysema. Status post UTI AK high. Hypothyroidism. Hypertension. Hyperlipidemia. Glaucoma. GERD. Vascular abnormality. Right femoral artery requiring long-term anticoagulation ASSESSMENT: This is an 85 year-old man status post recent pacemaker and valve replacement 09/2020 and past medical history of CAD s/p stent, hypertension, hyperlipidemia, hypothyroidism, Barretts esophagus, diverticular disease, emphysema, GERD, umbilical hernia, osteoporosis with multiple thoracic compression fractures, who presents status post laparoscopic reduction of small bowel obstruction placement of mesh, IV antibiotics for UTI and pleural effusion, possible early pneumonia with dyspnea, and remote possibility of other pulmonic or systemic pathology 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 Patient has adjusted well, but is noted by team and with input from spouse that he has had worsening cognitive decline in need of further assessment. PLAN: 1. Rehab- PT/OT advance gait and ADls, strengthen/stretch/maintain ROM all 4 limbs. We'll continue to work on timing pain medication with therapy interventions to optimize possible capacity to participate. 2. Medical conditions -HTN -amlodipine -HLD- c/u statins -DM SSI, diet, education 3. Resp - continue incentive spirometry, monitor for infection 4. Endo- 5. - PVR, bladder training if indicated. 6. GI ppx- continue laxatives, slowly progress to soft diet today, possibly regular diet in AM 7. Skin-Usual nursing protocols to maintain skin integrity 8. Neuro-AMS will proceed with SL cog eval and reorientation, safety assessments DISPOSITION Home with TIME SPENT: Chart Review, examination and documentation 35 minutes. Allergies Coded Allergies: diphenhydramine (Verified Allergy, Severe, SWELLING, 01/09/21) FISH (Verified Allergy, Unknown, 06/14/08) POULTRY (Verified Allergy, Unknown, DARK MEAT, 06/14/08) bacitracin (Verified Allergy, Unknown, 01/09/21) dorzolamide (Verified Allergy, Unknown, 01/09/21) neomycin (Verified Allergy, Unknown, 01/09/21) polymyxin B (Verified Allergy, Unknown, 01/09/21) shellfish derived (Verified Allergy, Unknown, 01/16/21) timolol (Verified Allergy, Unknown, 01/09/21) valsartan (Verified Allergy, Unknown, 01/09/21) Vital Signs Vital Signs Date Time Temp Pulse Resp B/P (MAP) Pulse Ox O2 Delivery O2 Flow Rate FiO2 01/18/21 14:00 97.2 82 16 138/86 (103) 100 Room Air Laboratory Data CBC/BMP Laboratory Tests 01/18/21 05:59 Labs 24H Laboratory Tests 2 01/18/21 05:59: Immature Granulocyte % (Auto) 0.4, Neutrophils (%) (Auto) 75.6H, Lymphocytes (%) (Auto) 11.3L, Monocytes (%) (Auto) 9.7H, Eosinophils (%) (Auto) 2.4, Basophils (%) (Auto) 0.6, Neutrophils # (Auto) 9.6H, Lymphocytes # (Auto) 1.4L, Monocytes # (Auto) 1.2H, Eosinophils # (Auto) 0.3, Basophils # (Auto) 0.1, Nucleated Red Blood Cells % (auto) 0.0, Anion Gap 7L, Glomerular Filtration Rate > 60.0, Calcium Level 9.0, Total Bilirubin 0.6, Aspartate Amino Transf (AST/SGOT) 18, Alanine Aminotransferase (ALT/SGPT) 11L, Alkaline Phosphatase 94, Total Protein 6.4, Albumin 2.9L, Albumin/Globulin Ratio 0.8 Current Medications Current Medications Current Medications Medications (Trade) Dose Ordered Sig/Dion Route PRN Reason Start Time Stop Time Status Last Admin Dose Admin Acetaminophen (Tylenol Tab) 650 mg DAILYPRN PRN PO PAIN LEVEL 1-4 01/17/21 16:15 01/17/21 16:29 DC Acetaminophen (Tylenol Tab) 650 mg Q4HP PRN PO MILD PAIN (PS 1-4) 01/17/21 14:10 01/18/21 05:31 Albuterol Sulfate (Proventil, Ventolin Hfa) 2 puff QID PRN INH SOB/WHEEZING 01/17/21 16:15 Alprazolam (Xanax) 0.25 mg BID PRN PO anxiety 01/17/21 16:15 01/18/21 09:51 Amoxicillin/ Clavulanate Potassium (Augmentin) 875 mg BID PO 01/17/21 21:00 01/18/21 09:50 Atenolol (Tenormin) 25 mg DAILY PO 01/18/21 09:00 01/18/21 09:50 Atorvastatin Calcium (Lipitor) 40 mg QHS PO 01/17/21 21:00 01/17/21 20:35 Brimonidine Tartrate (Alphagan P 0.1%) 1 drop QAM OU 01/18/21 09:00 01/18/21 09:51 Clopidogrel Bisulfate (PLAVix) 75 mg DAILY PO 01/18/21 09:00 01/18/21 09:50 Furosemide (Lasix) 20 mg DAILY PO 01/18/21 09:00 01/18/21 09:51 Home Med (Home Med List Complete!) ASDIRECTED XX 01/17/21 14:55 01/17/21 15:42 DC Latanoprost (Xalatan 0.005% Op Soln) 1 drop QPM OU 01/17/21 21:00 01/17/21 20:35 Levothyroxine Sodium (Synthroid) 75 mcg DAILY@0600 PO 01/18/21 06:00 01/18/21 05:31 Magnesium Oxide (Mag-Ox) 400 mg DAILY PO 01/18/21 09:00 01/18/21 10:08 DC 01/18/21 09:50 Omeprazole (PriLOSEC) 20 mg DAILY PO 01/18/21 09:00 01/17/21 16:29 DC Omeprazole (PriLOSEC) 20 mg DAILY PO 01/18/21 09:00 01/18/21 09:50 Ondansetron HCl (Zofran) 4 mg Q6HP PRN PO NAUSEA 01/17/21 14:10 Oxycodone/ Acetaminophen (Percocet 5mg/ 325mg Tablet) 1 tab Q4HP PRN PO MODERATE PAIN (PS 5-7) 01/17/21 16:15 Polyethylene Glycol (Miralax) 1 pkt DAILY PO 01/17/21 09:00 01/17/21 16:54 Potassium Chloride (Micro-K Extencaps) 10 meq DAILY PO 01/18/21 09:00 01/18/21 09:50 Salmeterol Xinafoate/ Fluticasone (Advair Hfa 115/ 21) 2 puff RBID INH 01/17/21 20:00 01/18/21 07:09 Senna/Docusate Sodium (Senokot S) 1 tab BID PO 01/17/21 21:00 01/17/21 20:35 Simethicone (Mylicon) 80 mg QIDP PRN PO BLOATING 01/17/21 14:10 Warfarin Sodium (Coumadin) 2.5 mg DAILY@17 PO 01/18/21 17:00 AYANNA MCCONNELL MD Jan 18, 2021 16:30
[2021-01-18] MEDS: WARFARIN SOD 2.5MG TAB PO SCH ×2 (18:40→18:49)
[2021-01-18 20:00] VITALS: BP 166/96
[2021-01-18] MEDS: ATORVASTATIN 20 MG TAB PO SCH (20:57)
[2021-01-18] MEDS: LATANOPROST 0.005% OPHTH SOLN 2.5 ML OU SCH (20:57)
[2021-01-18 22:35] VITALS: BP 148/78
[2021-01-19] MEDS: LEVOTHYROXINE 75MCG TABLET (0.075MG) PO SCH (05:35)
[2021-01-19 06:00] VITALS: BP 147/71
[2021-01-19] MEDS: ADVAIR HFA 115/21MCG INHALER INH SCH ×2 (07:20→20:00)
[2021-01-19 08:38] LABS: INR 1.3; PROTHROMBIN TIME 16.6 SECONDS (12.7-14.5)
[2021-01-19] MEDS: SENOKOT S TAB PO SCH ×2 (09:00→21:52)
[2021-01-19] MEDS: MIRALAX *UNIT DOSE* 17GM PACKET PO SCH (09:00)
[2021-01-19] MEDS: OMEPRAZOLE 20 MG CAP PO SCH (09:56)
[2021-01-19] MEDS: CLOPIDOGREL 75 MG TAB PO SCH (09:56)
[2021-01-19] MEDS: AUGMENTIN 875 MG TAB PO SCH ×2 (09:56→21:52)
[2021-01-19] MEDS: FUROSEMIDE 20 MG TAB PO SCH (09:57)
[2021-01-19] MEDS: BRIMONIDINE 0.1% OPHTH SOLN 5 ML OU SCH (09:57)
[2021-01-19] MEDS: POTASSIUM CHLORIDE 10MEQ SR TABLET PO SCH (09:57)
[2021-01-19] MEDS: ALPRAZolam 0.25 MG TAB PO PRN (09:57)
[2021-01-19] MEDS: atenoloL 25 MG TAB PO SCH (09:57)
--- NOTE | 2021-01-19 10:58 | IPNPDOC ---
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 He was admitted to [facility] on 01/09/2021 after a week of escalating abdominal pain, poor appetite, full expanding abdomen causing mid girth discomfort with clothing. Imaging revealed multiple thoracic compression fractures as well as incarcerated bowel in the umbilical hernia with contents tracing into the stomach and esophagus. NG tube was placed removing 1.7 L of gastric content, he was also found to have leukocytosis with tachypnea, lactic acidosis, right pleural effusion, sepsis with altered mental status. He was on chronic Coumadin that had to be normalized and eventually underwent robotic assisted laparoscopic evaluation and treatment, including placement of 10 x 10 cm [place] soft [place] polypropylene mesh by Dr. Barnett 01.16.2021 for incarcerated loops of bowel in long-standing umbilical hernia and small bowel obstruction. Intraoperatively significant diastases, greater than 6 cm at the level of umbilicus extending throughout the midline, was noted along with significant bladder distention and postoperatively he has been incontinent of bowel and bladder function. Postoperatively patient stabilized and was transferred to ARU on 01.17.2021 for comprehensive rehabilitation. 01.18.2021 Patient acclimating well, cognitive challenges and general disorientation noted by team, confirmed by . Having greater success with continence of bowel and bladder, but a bit impulsive. Minimal complaints of pain. Nursing notes several near liquid stools overnight. Tolerating full liquids. 01.19.2021 Patient sundowning at night, and nursing confirm general confusion worse since his procedures. Speech eval was requested showing impairment. Patient has no complaints of pain today is oriented to person and place and year. He remains impulsive, requiring redirection by nursing and is still unsteady on his feet. Reportedly having loose bowel movements, stopped magnesium, tolerating progression to soft diet. REVIEW OF SYSTEMS: The following is a completed review of systems and has been reviewed. Review of systems otherwise unremarkable. PAIN: abdominal pain improving. EYES: No recent vision changes. EARS, NOSE, & THROAT: No throat pain, or dysphagia, or rhinorrhea. CARDIOVASCULAR: Denies chest pain or palpitations. PULMONARY: has had shortness of breath, improved with cardiovascular interventions GASTROINTESTINAL: Challenges with incontinence GENITOURINARY: . Challenges with incontinence MUSCULOSKELETAL: . Multiple thoracic Compression fractures NEUROLOGICAL:.altered mentation HEMATOLOGICAL: no bleeding or bruising SKIN: .healing laparoscopy ports PSYCHIATRIC: Unremarkable. All other review of systems found to be negative. ALLERGIES: See Below MEDICATIONS: Reviewed, see below. OBJECTIVE: VITAL SIGNS: Please see below. GENERAL: Pleasantly confused but cooperative. No acute distress. Alert and oriented to person, place. HEENT: Extraocular movements intact. Clear conjunctiva, no adenopathy or thyromegaly. Bulbous hypertrophic nose with deviated septum, oropharynx dry mucosa, poor dentition, Full cervical range of motion without tenderness or spasm. CARDIOVASCULAR: Regular rate and rhythm. I/ murmur, pacemaker present L pectoral region. LUNGS: Clear to auscultation bilaterally. No wheezes. No rhonchi. ABDOMEN: Soft, less tenderness, healing laparoscopic port sites right upper and lateral region, mildly distended. Positive normal active bowel sounds, no organomegaly. NEUROLOGICAL: Cranial nerves II through XII intact. Sensation grossly intact. 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 No peripheral edema, DP faint. FROM bilateral shoulders, elbows, OA changes, full sequins stringer bilateral hands. SPINE: no point tenderness TL region SKIN: .Healing Laparoscopy sites, better turgor. FUNCTIONAL STATUS: Ambulating with contact-guard assist with gait belt noted to be confused. Speech and language Testing revealed average language and reasoning, skills, mild difficulties with orientation and attention, and moderate to severe impairments with memory, calculations, and constructional ability. LABORATORY DATA: Reviewed. Please see below. MICROBIOLOGY: See below ASSESSMENT AND PLAN: DIAGNOSES: Status post small bowel obstruction with repair of incarcerated umbilical hernia 01.16.2021 Delirium Leukocytosis. Anemia Sepsis. Multiple Compression fracture thoracic spine. CHF Dependent edema. hematoma. Head Pleural effusion Emphysema. Status post UTI [place] high. Hypothyroidism. Hypertension. Hyperlipidemia. Glaucoma. GERD. Vascular abnormality. 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 ASSESSMENT: This is an 85 year-old man status post recent pacemaker and valve replacement 09/2020 and past medical history of CAD s/p stent, hypertension, hyperlipidemia, hypothyroidism, Barretts esophagus, diverticular disease, emphysema, GERD, umbilical hernia, osteoporosis with multiple thoracic compression fractures, who presents status post laparoscopic reduction of small bowel obstruction placement of mesh, IV antibiotics for UTI and pleural effusion, possible early pneumonia with dyspnea, and remote possibility of other pulmonic or systemic pathology from assisted environmental exposures. Patient has adjusted well, but is noted by team and with input from spouse that he has had worsening cognitive decline in need of further assessment. PLAN: 1. Rehab- PT/OT advance gait and ADls, strengthen/stretch/maintain ROM all 4 limbs. We'll continue to work on timing pain medication with therapy interventions to optimize possible capacity to participate. 2. Medical conditions -HTN -amlodipine -HLD- c/u statins -DM SSI, diet, education 3. Resp - continue incentive spirometry, monitor for infection 4. Endo- 5. - PVR, bladder training if indicated. 6. GI ppx-adjusted laxatives and discontinued. Magnesium. He is having multiple loose incontinent stools. Continue, slowly progress soft diet possibly regular diet this weekend 7. Skin-Usual nursing protocols to maintain skin integrity 8. Neuro-AMS will proceed with SL cog eval and reorientation, safety assessments DISPOSITION Home with TIME SPENT: Chart Review, examination and documentation 35 minutes. Allergies Coded Allergies: diphenhydramine (Verified Allergy, Severe, SWELLING, 01/09/21) FISH (Verified Allergy, Unknown, 06/14/08) POULTRY (Verified Allergy, Unknown, DARK MEAT, 06/14/08) bacitracin (Verified Allergy, Unknown, 01/09/21) dorzolamide (Verified Allergy, Unknown, 01/09/21) neomycin (Verified Allergy, Unknown, 01/09/21) polymyxin B (Verified Allergy, Unknown, 01/09/21) shellfish derived (Verified Allergy, Unknown, 01/16/21) timolol (Verified Allergy, Unknown, 01/09/21) valsartan (Verified Allergy, Unknown, 01/09/21) Vital Signs Vital Signs Date Time Temp Pulse Resp B/P (MAP) Pulse Ox O2 Delivery O2 Flow Rate FiO2 01/19/21 09:57 80 147/71 01/19/21 06:00 98.0 18 97 Room Air Laboratory Data Labs 24H Laboratory Tests 2 01/19/21 07:27: Prothrombin Time 16.6H, Prothromb Time International Ratio 1.30 Current Medications Current Medications Current Medications Medications (Trade) Dose Ordered Sig/Dion Route PRN Reason Start Time Stop Time Status Last Admin Dose Admin Acetaminophen (Tylenol Tab) 650 mg DAILYPRN PRN PO PAIN LEVEL 1-4 01/17/21 16:15 01/17/21 16:29 DC Acetaminophen (Tylenol Tab) 650 mg Q4HP PRN PO MILD PAIN (PS 1-4) 01/17/21 14:10 01/18/21 05:31 Albuterol Sulfate (Proventil, Ventolin Hfa) 2 puff QID PRN INH SOB/WHEEZING 01/17/21 16:15 Alprazolam (Xanax) 0.25 mg BID PRN PO anxiety 01/17/21 16:15 01/19/21 09:57 Amoxicillin/ Clavulanate Potassium (Augmentin) 875 mg BID PO 01/17/21 21:00 01/19/21 09:56 Atenolol (Tenormin) 25 mg DAILY PO 01/18/21 09:00 01/19/21 09:57 Atorvastatin Calcium (Lipitor) 40 mg QHS PO 01/17/21 21:00 01/18/21 20:57 Brimonidine Tartrate (Alphagan P 0.1%) 1 drop QAM OU 01/18/21 09:00 01/19/21 09:57 Clopidogrel Bisulfate (PLAVix) 75 mg DAILY PO 01/18/21 09:00 01/19/21 09:56 Furosemide (Lasix) 20 mg DAILY PO 01/18/21 09:00 01/19/21 09:57 Home Med (Home Med List Complete!) ASDIRECTED XX 01/17/21 14:55 01/17/21 15:42 DC Latanoprost (Xalatan 0.005% Op Soln) 1 drop QPM OU 01/17/21 21:00 01/18/21 20:57 Levothyroxine Sodium (Synthroid) 75 mcg DAILY@0600 PO 01/18/21 06:00 01/19/21 05:35 Lorazepam (Ativan) 0.5 mg DAILY@1700 PO 01/19/21 17:00 Magnesium Oxide (Mag-Ox) 400 mg DAILY PO 01/18/21 09:00 01/18/21 10:08 DC 01/18/21 09:50 Omeprazole (PriLOSEC) 20 mg DAILY PO 01/18/21 09:00 01/17/21 16:29 DC Omeprazole (PriLOSEC) 20 mg DAILY PO 01/18/21 09:00 01/19/21 09:56 Ondansetron HCl (Zofran) 4 mg Q6HP PRN PO NAUSEA 01/17/21 14:10 Oxycodone/ Acetaminophen (Percocet 5mg/ 325mg Tablet) 1 tab Q4HP PRN PO MODERATE PAIN (PS 5-7) 01/17/21 16:15 Polyethylene Glycol (Miralax) 1 pkt DAILY PO 01/17/21 09:00 01/17/21 16:54 Potassium Chloride (Micro-K Extencaps) 10 meq DAILY PO 01/18/21 09:00 01/19/21 09:57 Salmeterol Xinafoate/ Fluticasone (Advair Hfa 115/ 21) 2 puff RBID INH 01/17/21 20:00 01/19/21 07:20 Senna/Docusate Sodium (Senokot S) 1 tab BID PO 01/17/21 21:00 01/17/21 20:35 Simethicone (Mylicon) 80 mg QIDP PRN PO BLOATING 01/17/21 14:10 Warfarin Sodium (Coumadin) 2.5 mg DAILY@17 PO 01/18/21 17:00 01/18/21 18:49 AYANNA MCCONNELL MD Jan 19, 2021 10:58
[2021-01-19 14:00] VITALS: BP 172/80
[2021-01-19] MEDS: LORazepam 0.5 MG TAB PO SCH (17:06)
[2021-01-19] MEDS: WARFARIN SOD 2.5MG TAB PO SCH (17:06)
[2021-01-19] MEDS ORDERED: PERCOCET 5MG/325MG TAB PO PRN (18:00)
[2021-01-19 20:00] VITALS: BP 141/70
[2021-01-19] MEDS: LATANOPROST 0.005% OPHTH SOLN 2.5 ML OU SCH (21:52)
[2021-01-19] MEDS: ATORVASTATIN 20 MG TAB PO SCH (21:52)
[2021-01-20] MEDS: LEVOTHYROXINE 75MCG TABLET (0.075MG) PO SCH (05:51)
[2021-01-20 06:00] VITALS: BP 164/78
[2021-01-20] MEDS: ADVAIR HFA 115/21MCG INHALER INH SCH ×2 (07:29→20:00)
[2021-01-20 08:02] LABS: INR 1.18; PROTHROMBIN TIME 15.5 SECONDS (12.7-14.5)
[2021-01-20] MEDS: MIRALAX *UNIT DOSE* 17GM PACKET PO SCH (09:00)
[2021-01-20] MEDS: FUROSEMIDE 20 MG TAB PO SCH (09:41)
[2021-01-20] MEDS: AUGMENTIN 875 MG TAB PO SCH ×2 (09:41→21:12)
[2021-01-20] MEDS: SENOKOT S TAB PO SCH ×2 (09:41→21:12)
[2021-01-20] MEDS: POTASSIUM CHLORIDE 10MEQ SR TABLET PO SCH (09:42)
[2021-01-20] MEDS: CLOPIDOGREL 75 MG TAB PO SCH (09:42)
[2021-01-20] MEDS: OMEPRAZOLE 20 MG CAP PO SCH (09:42)
[2021-01-20] MEDS: atenoloL 25 MG TAB PO SCH (09:43)
[2021-01-20] MEDS: BRIMONIDINE 0.1% OPHTH SOLN 5 ML OU SCH (09:43)
[2021-01-20 13:59] VITALS: BP 162/77
[2021-01-20] MEDS: WARFARIN SOD 2.5MG TAB PO SCH (17:20)
[2021-01-20] MEDS: LORazepam 0.5 MG TAB PO SCH (17:20)
[2021-01-20 20:00] VITALS: BP 157/82
[2021-01-20] MEDS: ATORVASTATIN 20 MG TAB PO SCH (21:12)
[2021-01-20] MEDS: LATANOPROST 0.005% OPHTH SOLN 2.5 ML OU SCH (21:13)
[2021-01-21] MEDS: LEVOTHYROXINE 75MCG TABLET (0.075MG) PO SCH (05:15)
[2021-01-21 06:00] VITALS: BP 165/76
[2021-01-21 06:27] LABS: INR 1.37; PROTHROMBIN TIME 17.3 SECONDS (12.7-14.5)
[2021-01-21] MEDS: ADVAIR HFA 115/21MCG INHALER INH SCH (07:27)
[2021-01-21] MEDS: OMEPRAZOLE 20 MG CAP PO SCH (08:49)
[2021-01-21] MEDS: AUGMENTIN 875 MG TAB PO SCH ×2 (08:49→20:42)
[2021-01-21] MEDS: CLOPIDOGREL 75 MG TAB PO SCH (08:49)
[2021-01-21] MEDS: MIRALAX *UNIT DOSE* 17GM PACKET PO SCH (08:50)
[2021-01-21] MEDS: FUROSEMIDE 20 MG TAB PO SCH (08:50)
[2021-01-21] MEDS: atenoloL 25 MG TAB PO SCH (08:50)
[2021-01-21] MEDS: POTASSIUM CHLORIDE 10MEQ SR TABLET PO SCH (08:50)
[2021-01-21] MEDS: SENOKOT S TAB PO SCH (08:51)
[2021-01-21] MEDS: BRIMONIDINE 0.1% OPHTH SOLN 5 ML OU SCH (08:55)
[2021-01-21] MEDS: ALPRAZolam 0.25 MG TAB PO PRN ×2 (13:30→17:04)
[2021-01-21 14:03] VITALS: BP 140/73
[2021-01-21] MEDS: LORazepam 0.5 MG TAB PO SCH (17:41)
[2021-01-21] MEDS: WARFARIN SOD 2.5MG TAB PO SCH (17:42)
[2021-01-21 19:27] VITALS: BP 124/58
[2021-01-21] MEDS: ATORVASTATIN 20 MG TAB PO SCH (20:42)
[2021-01-21] MEDS: LATANOPROST 0.005% OPHTH SOLN 2.5 ML OU SCH (20:42)
[2021-01-22] MEDS: LEVOTHYROXINE 75MCG TABLET (0.075MG) PO SCH (05:34)
[2021-01-22 06:00] VITALS: BP 158/86
[2021-01-22] MEDS: ADVAIR HFA 115/21MCG INHALER INH SCH ×2 (07:14→20:12)
[2021-01-22 07:26] LABS: BASO # 0.1 10^3/uL (0.0-0.2); BASO % 0.8 % (0.0-1.0); EOS # 0.5 10^3/uL (0.0-0.5); EOS % 5.4 % (0.0-3.0); HEMATOCRIT 39.3 % (42.0-52.0); HEMOGLOBIN 12.2 g/dl (13.5-17.5); LYMPH # 1.1 10^3/uL (1.5-5.0); LYMPH % 11.4 % (24.0-44.0); MEAN CORPUSCULAR HEMOGLOBIN 26.1 pg (27.0-33.0); MONO # 0.7 10^3/uL (0.0-0.8); MONO % 6.8 % (2.0-8.0); NEUTROPHILS # 7.4 10^3/uL (1.5-8.5); NEUTROPHILS % 75.3 % (36.0-66.0); PLATELET COUNT, AUTOMATED 266 10^3/uL (150-450); RED BLOOD COUNT 4.68 10^6/uL (4.30-6.10); WHITE BLOOD COUNT 9.8 10^3/uL (4.0-10.0)
[2021-01-22 07:37] LABS: INR 1.58; PROTHROMBIN TIME 19.3 SECONDS (12.7-14.5)
--- NOTE | 2021-01-22 08:37 | IPNPDOC ---
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 He was admitted to [facility] on 01/09/2021 after a week of escalating abdominal pain, poor appetite, full expanding abdomen causing mid girth discomfort with clothing. Imaging revealed multiple thoracic compression fractures as well as incarcerated bowel in the umbilical hernia with contents tracing into the stomach and esophagus. NG tube was placed removing 1.7 L of gastric content, he was also found to have le ukocytosis with tachypnea, lactic acidosis, right pleural effusion, sepsis with altered mental status. He was on chronic Coumadin that had to be normalized and eventually underwent robotic assisted laparoscopic evaluation and treatment, including placement of 10 x 10 cm [place] soft [place] polypropylene mesh by Dr. Barnett 01.16.2021 for incarcerated loops of bowel in long-standing umbilical hernia and small bowel obstruction. Intraoperatively significant diastases, greater than 6 cm at the level of umbilicus extending throughout the midline, was noted along with significant bladder distention and postoperatively he has been incontinent of bowel and bladder function. Postoperatively patient stabilized and was transferred to ARU on 01.17.2021 for comprehensive rehabilitation. 01.18.2021 Patient acclimating well, cognitive challenges and general disorientation noted by team, confirmed by . Having greater success with continence of bowel and bladder, but a bit impulsive. Minimal complaints of pain. Nursing notes several near liquid stools overnight. Tolerating full liquids. 01.19.2021 Patient sundowning at night, and nursing confirm general confusion worse since his procedures. Speech eval was requested showing impairment. Patient has no complaints of pain today is oriented to person and place and year. He remains impulsive, requiring redirection by nursing and is still unsteady on his feet. Reportedly having loose bowel movements, stopped magnesium, tolerating progr ession to soft diet. 01.23.2021 He did well over the weekend, tolerated progression of diet is soft and then regular diet this morning. His is here today and also observes he seems to be much clearer and in less distress with less shortness of breath. He was having frequent loose stools, reduced laxatives and added some fiber with encouragement to continue good fluid intake He feels he is gaining strength, is still noted to be impulsive at times, some safety awareness challenges, potassium dipped a bit. Well recheck that now that his diet is now stabilizing REVIEW OF SYSTEMS: The following is a completed review of systems and has been reviewed. Review of systems otherwise unremarkable. PAIN: abdominal pain improving. EYES: No recent vision changes. EARS, NOSE, & THROAT: No throat pain, or dysphagia, or rhinorrhea. CARDIOVASCULAR: Denies chest pain or palpitations. PULMONARY: has had shortness of breath, improved with cardiovascular interventions GASTROINTESTINAL: Challenges with incontinence GENITOURINARY: . Challenges with incontinence MUSCULOSKELETAL: . Multiple thoracic Compression fractures NEUROLOGICAL:.altered mentation HEMATOLOGICAL: no bleeding or bruising SKIN: .healing laparoscopy ports PSYCHIATRIC: Unremarkable. All other review of systems found to be negative. ALLERGIES: See Below MEDICATIONS: Reviewed, see below. OBJECTIVE: VITAL SIGNS: Please see below. GENERAL: Pleasant and cooperative. No acute distress. Alert and oriented to person, place, Halloween was yesterday. HEENT: Extraocular movements intact. Clear conjunctiva, no adenopathy or thyromegaly. Bulbous hypertrophic nose with deviated septum, oropharynx dry mucosa, poor dentition, Full cervical range of motion without tenderness or spasm. CARDIOVASCULAR: Regular rate and rhythm. I/ murmur, pacemaker present L pectoral region. LUNGS: Clear to auscultation bilaterally. No wheezes. No rhonchi. ABDOMEN: Soft, less tenderness, healing laparoscopic port sites right upper and lateral region, less distended. Positive normal active bowel sounds. NEUROLOGICAL: Cranial nerves II through XII grossly intact. Sensation grossly intact. EXTREMITIES: 5 /5 direct care professional. No peripheral edema, OA changes. SPINE: no point tenderness TL region SKIN: .Healing Laparoscopy sites, better turgor. FUNCTIONAL STATUS: Ambulating with contact-guard assist with gait belt noted to be intermittently confused. Speech and language Testing revealed average language and reasoning, skills, mild difficulties with orientation and attention, and moderate to severe impairments with memory, calculations, and constructional ability. LABORATORY DATA: Reviewed. Please see below.Potassium slightly low. MICROBIOLOGY: See below ASSESSMENT AND PLAN: DIAGNOSES: Status post small bowel obstruction with repair of incarcerated umbilical hernia 01.16.2021 Delirium Leukocytosis. Anemia Sepsis. Multiple Compression fracture thoracic spine. CHF Dependent edema. hematoma. Head Pleural effusion Emphysema. Status post UTI [place] high. Hypothyroidism. Hypertension. Hyperlipidemia. Glaucoma. GERD. Vascular abnormality. 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 ASSESSMENT: This is an 85 year-old man status post recent pacemaker and valve replacement 09/2020 and past medical history of CAD s/p stent, hypertension, hyperlipidemia, hypothyroidism, Barretts esophagus, diverticular disease, emphysema, GERD, umbilical hernia, osteoporosis with multiple thoracic compression fractures, who presents status post laparoscopic reduction of small bowel obstruction placement of mesh, IV antibiotics for UTI and pleural effusion, possible early pneumonia with dyspnea, and remote possibility of other pulmonic or systemic pathology from [facility] environmental exposures. Patient has adjusted well, but is noted by team and with input from spouse that he has had worsening cognitive decline in need of further assessment. PLAN: 1. Rehab- PT/OT advance gait and ADls, strengthen/stretch/maintain ROM all 4 limbs. We'll work on weaning off pain medication and continue with therapy interventions to optimize possible capacity to participate consistently and safely. 2. Medical conditions -HTN -amlodipine -HLD- c/u statins -DM SSI, diet, education 3. Resp - continue incentive spirometry, monitor for infection, clear, 1 more day Augmentin then will DC. Need thorough care in presence of valve replacement. 4. Endo- 5. - PVR, bladder training if indicated. 6. GI ppx-adjusted laxatives and discontinued. Magnesium. He was having multiple loose incontinent stools. Continue, slowly progressed soft diet to regular diet this week 7. Skin-Usual nursing protocols to maintain skin integrity 8. Neuro-AMS will proceed with cog eval and reorientation, safety assessments DISPOSITION Home with TIME SPENT: Chart Review, examination and documentation 25 minutes. Allergies Coded Allergies: diphenhydramine (Verified Allergy, Severe, SWELLING, 01/09/21) FISH (Verified Allergy, Unknown, 06/14/08) POULTRY (Verified Allergy, Unknown, DARK MEAT, 06/14/08) bacitracin (Verified Allergy, Unknown, 01/09/21) dorzolamide (Verified Allergy, Unknown, 01/09/21) neomycin (Verified Allergy, Unknown, 01/09/21) polymyxin B (Verified Allergy, Unknown, 01/09/21) shellfish derived (Verified Allergy, Unknown, 01/16/21) timolol (Verified Allergy, Unknown, 01/09/21) valsartan (Verified Allergy, Unknown, 01/09/21) Vital Signs Vital Signs Date Time Temp Pulse Resp B/P (MAP) Pulse Ox O2 Delivery O2 Flow Rate FiO2 01/22/21 06:00 97.9 83 20 158/86 (110) 95 Room Air Laboratory Data CBC/BMP Laboratory Tests 01/22/21 07:10 Labs 24H Laboratory Tests 2 01/22/21 07:10: Immature Granulocyte % (Auto) 0.3, Neutrophils (%) (Auto) 75.3H, Lymphocytes (%) (Auto) 11.4L, Monocytes (%) (Auto) 6.8, Eosinophils (%) (Auto) 5.4H, Basophils (%) (Auto) 0.8, Neutrophils # (Auto) 7.4, Lymphocytes # (Auto) 1.1L, Monocytes # (Auto) 0.7, Eosinophils # (Auto) 0.5, Basophils # (Auto) 0.1, Nucleated Red Blood Cells % (auto) 0.0, Prothrombin Time 19.3H, Prothromb Time International Ratio 1.58 Current Medications Current Medications Current Medications Medications (Trade) Dose Ordered Sig/Dion Route PRN Reason Start Time Stop Time Status Last Admin Dose Admin Acetaminophen (Tylenol Tab) 650 mg DAILYPRN PRN PO PAIN LEVEL 1-4 01/17/21 16:15 01/17/21 16:29 DC Acetaminophen (Tylenol Tab) 650 mg Q4HP PRN PO MILD PAIN (PS 1-4) 01/17/21 14:10 01/18/21 05:31 Albuterol Sulfate (Proventil, Ventolin Hfa) 2 puff QID PRN INH SOB/WHEEZING 01/17/21 16:15 Alprazolam (Xanax) 0.25 mg BID PRN PO anxiety 01/17/21 16:15 01/21/21 13:30 Amoxicillin/ Clavulanate Potassium (Augmentin) 875 mg BID PO 01/17/21 21:00 01/22/21 23:59 01/21/21 20:42 Atenolol (Tenormin) 25 mg DAILY PO 01/18/21 09:00 01/21/21 08:50 Atorvastatin Calcium (Lipitor) 40 mg QHS PO 01/17/21 21:00 01/21/21 20:42 Brimonidine Tartrate (Alphagan P 0.1%) 1 drop QAM OU 01/18/21 09:00 01/21/21 08:55 Clopidogrel Bisulfate (PLAVix) 75 mg DAILY PO 01/18/21 09:00 01/21/21 08:49 Furosemide (Lasix) 20 mg DAILY PO 01/18/21 09:00 01/21/21 08:50 Home Med (Home Med List Complete!) ASDIRECTED XX 01/17/21 14:55 01/17/21 15:42 DC Latanoprost (Xalatan 0.005% Op Soln) 1 drop QPM OU 01/17/21 21:00 01/21/21 20:42 Levothyroxine Sodium (Synthroid) 75 mcg DAILY@0600 PO 01/18/21 06:00 01/22/21 05:34 Lorazepam (Ativan) 0.5 mg DAILY@1700 PO 01/19/21 17:00 01/21/21 17:41 Magnesium Oxide (Mag-Ox) 400 mg DAILY PO 01/18/21 09:00 01/18/21 10:08 DC 01/18/21 09:50 Omeprazole (PriLOSEC) 20 mg DAILY PO 01/18/21 09:00 01/17/21 16:29 DC Omeprazole (PriLOSEC) 20 mg DAILY PO 01/18/21 09:00 01/21/21 08:49 Ondansetron HCl (Zofran) 4 mg Q6HP PRN PO NAUSEA 01/17/21 14:10 Oxycodone/ Acetaminophen (Percocet 5mg/ 325mg Tablet) 1 tab Q4HP PRN PO MODERATE PAIN (PS 5-7) 01/17/21 16:15 01/19/21 11:01 DC Oxycodone/ Acetaminophen (Percocet 5mg/ 325mg Tablet) 1 tab Q8HP PRN PO MODERATE PAIN (PS 5-7) 01/19/21 18:00 Polyethylene Glycol (Miralax) 1 pkt DAILY PO 01/17/21 09:00 01/21/21 12:19 DC 01/17/21 16:54 Potassium Chloride (Micro-K Extencaps) 10 meq DAILY PO 01/18/21 09:00 01/21/21 08:50 Psyllium Hydrophilic Mucilloid (Metamucil) 1 pkt DAILY PO 01/22/21 09:00 Salmeterol Xinafoate/ Fluticasone (Advair Hfa 115/ 21) 2 puff RBID INH 01/17/21 20:00 01/22/21 07:14 Senna/Docusate Sodium (Senokot S) 1 tab BID PO 01/17/21 21:00 01/21/21 12:19 DC 01/20/21 21:12 Simethicone (Mylicon) 80 mg QIDP PRN PO BLOATING 01/17/21 14:10 Warfarin Sodium (Coumadin) 2.5 mg DAILY@17 PO 01/18/21 17:00 01/21/21 17:42 AYANNA MCCONNELL MD Jan 22, 2021 08:36
[2021-01-22] MEDS: OMEPRAZOLE 20 MG CAP PO SCH (09:15)
[2021-01-22] MEDS: atenoloL 25 MG TAB PO SCH (09:15)
[2021-01-22] MEDS: POTASSIUM CHLORIDE 10MEQ SR TABLET PO SCH (09:15)
[2021-01-22] MEDS: AUGMENTIN 875 MG TAB PO SCH ×2 (09:15→20:23)
[2021-01-22] MEDS: CLOPIDOGREL 75 MG TAB PO SCH (09:15)
[2021-01-22] MEDS: METAMUCIL (PSYLLIUM) PACKET PO SCH (09:16)
[2021-01-22] MEDS: FUROSEMIDE 20 MG TAB PO SCH (09:16)
[2021-01-22] MEDS: BRIMONIDINE 0.1% OPHTH SOLN 5 ML OU SCH (09:18)
[2021-01-22 11:03] LABS: BLOOD UREA NITROGEN 5 MG/DL (7-18); CALCIUM LEVEL 9.6 MG/DL (8.8-10.2); CARBON DIOXIDE LEVEL 29 MEQ/L (21-32); CHLORIDE LEVEL 110 MEQ/L (98-107); CREATININE FOR GFR 0.97 MG/DL (0.70-1.30); GLOMERULAR FILTRATION RATE > 60.0 (>35); GLUCOSE, FASTING 81 MG/DL (70-100); POTASSIUM SERUM 3.3 MEQ/L (3.5-5.1); SODIUM LEVEL 143 MEQ/L (136-145)
[2021-01-22 14:00] VITALS: BP 152/73
[2021-01-22] MEDS: WARFARIN SOD 2.5MG TAB PO SCH (16:53)
[2021-01-22] MEDS: LORazepam 0.5 MG TAB PO SCH (16:53)
[2021-01-22] MEDS ORDERED: WARFARIN SOD 2.5MG TAB PO ONE (18:00)
[2021-01-22 20:00] VITALS: BP 156/80
[2021-01-22] MEDS: ATORVASTATIN 20 MG TAB PO SCH (20:23)
[2021-01-22] MEDS: LATANOPROST 0.005% OPHTH SOLN 2.5 ML OU SCH (20:24)
[2021-01-23] MEDS: LEVOTHYROXINE 75MCG TABLET (0.075MG) PO SCH (05:39)
[2021-01-23 06:00] VITALS: BP 164/76
[2021-01-23] MEDS: ADVAIR HFA 115/21MCG INHALER INH SCH ×2 (07:47→20:51)
[2021-01-23] MEDS: OMEPRAZOLE 20 MG CAP PO SCH (08:26)
[2021-01-23] MEDS: CLOPIDOGREL 75 MG TAB PO SCH (08:26)
[2021-01-23] MEDS: FUROSEMIDE 20 MG TAB PO SCH (08:26)
[2021-01-23] MEDS: POTASSIUM CHLORIDE 10MEQ SR TABLET PO SCH (08:26)
[2021-01-23] MEDS: METAMUCIL (PSYLLIUM) PACKET PO SCH (08:27)
[2021-01-23] MEDS: BRIMONIDINE 0.1% OPHTH SOLN 5 ML OU SCH (08:31)
[2021-01-23] MEDS: atenoloL 25 MG TAB PO SCH (08:31)
--- NOTE | 2021-01-23 09:40 | IPNPDOC ---
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 He was admitted to [facility] on 01/09/2021 after a week of escalating abdominal pain, poor appetite, full expanding abdomen causing mid girth discomfort with clothing. Imaging revealed multiple thoracic compression fractures as well as incarcerated bowel in the umbilical hernia with contents tracing into the stomach and esophagus. NG tube was placed removing 1.7 L of gastric content, he was also found to have leukocytosis with tachypnea, lactic acidosis, right pleural effusion, sepsis with altered mental status. He was on chronic Coumadin that had to be normalized and eventually underwent robotic assisted laparoscopic evaluation and treatment, including placement of 10 x 10 cm [place] soft [place] polypropylene mesh by Dr. Barnett 01.16.2021 for incarcerated loops of bowel in long-standing umbilical hernia and small bowel obstruction. Intraoperatively significant diastases, greater than 6 cm at the level of umbilicus extending throughout the midline, was noted along with significant bladder distention and postoperatively he was incontinent of bowel and bladder function, he stabilized and was transferred to ARU on 01.17.2021 for comprehensive rehabilitation. 01.18.2021 Patient acclimating well, cognitive challenges and general disorientation noted by team, confirmed by . Having greater success with continence of bowel and bladder, but a bit impulsive. Minimal complaints of pain. Nursing notes several near liquid stools overnight. Tolerating full liquids. 01.19.2021 Patient sundowning at night, and nursing confirm general confusion worse since his procedures. Speech eval was requested showing impairment. Patient has no complaints of pain today is oriented to person and place and year. He remains impulsive, requiring redirection by nursing and is still unsteady on his feet. Reportedly having loose bowel movements, stopped magnesium, tolerating progression to soft diet. 01.22.2021 He did well over the weekend, tolerated progression of diet is soft and then regular diet this morning. His is here today and also observes he seems to be much clearer and in less distress with less shortness of breath. He was having frequent loose stools, reduced laxatives and added some fiber with encouragement to continue good fluid intake He feels he is gaining strength, is still noted to be impulsive at times, some safety awareness challenges, potassium dipped a bit. Well recheck that now that his diet is now stabilizing 11.2.2020 No complaints this morning, admits his head is screwed up speaking about numbers, I think he might be referring to BP levels being elevated. Tolerating regular/soft diet with no abdominal pain, maintaining good PO intake, Still a b it impulsive but redirectable and gaining better safety awareness. REVIEW OF SYSTEMS: The following is a completed review of systems and has been reviewed. Review of systems otherwise unremarkable. PAIN: abdominal pain improving. EYES: No recent vision changes. EARS, NOSE, & THROAT: No throat pain, or dysphagia, or rhinorrhea. CARDIOVASCULAR: Denies chest pain or palpitations. PULMONARY: has had shortness of breath, improved with cardiovascular interventions GASTROINTESTINAL: Challenges with incontinence GENITOURINARY: . Challenges with incontinence MUSCULOSKELETAL: . Multiple thoracic Compression fractures NEUROLOGICAL:.altered mentation HEMATOLOGICAL: no bleeding or bruising SKIN: .healing laparoscopy ports PSYCHIATRIC: Unremarkable. All other review of systems found to be negative. ALLERGIES: See Below MEDICATIONS: Reviewed, see below. OBJECTIVE: VITAL SIGNS: Please see below. GENERAL: Pleasant and cooperative. No acute distress. Alert and oriented to person, place, unable to state month. HEENT: Extraocular movements intact. Clear conjunctiva, no adenopathy or thyromegaly. Bulbous hypertrophic nose with deviated septum, oropharynx more moist mucosa, poor dentition, Full cervical range of motion without tenderness or spasm. CARDIOVASCULAR: Regular rate and rhythm. I/ murmur, occasional extra beat, pacemaker present L pectoral region. LUNGS: Clear to auscultation bilaterally, raspy breath sounds. No wheezes. No rhonchi. ABDOMEN: Soft, less tenderness, healing laparoscopic port sites right upper and lateral region, less distended. Positive normal active bowel sounds. NEUROLOGICAL: Cranial nerves II through XII grossly intact. Sensation grossly intact. EXTREMITIES: 5 /5 housing inspector. No peripheral edema, OA changes full forward flexion SPINE: no point tenderness TL region SKIN: .Healing Laparoscopy sites, better turgor. FUNCTIONAL STATUS: Ambulating with contact-guard assist with gait belt noted to be intermittently confused. Speech and language Testing revealed average language and reasoning, skills, mild difficulties with orientation and attention, and moderate to severe impairments with memory, calculations, and constructional ability. LABORATORY DATA: Reviewed. Please see below.Potassium slightly low. MICROBIOLOGY: See below ASSESSMENT AND PLAN: DIAGNOSES: Status post small bowel obstruction with repair of incarcerated umbilical hernia 01.16.2021 Delirium Leukocytosis. Anemia Sepsis. Multiple Compression fracture thoracic spine. CHF Dependent edema. hematoma. Head Pleural effusion Emphysema. Status post UTI [place] high. Hypothyroidism. Hypertension. Hyperlipidemia. Glaucoma. GERD. Vascular abnormality. 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 ASSESSMENT: This is an 85 year-old man status post recent pacemaker and valve replacement 09/2020 and past medical history of CAD s/p stent, hypertension, hyperlipidemia, hypothyroidism, Barretts esophagus, diverticular disease, emphysema, GERD, umbilical hernia, osteoporosis with multiple thoracic compression fractures, who presents status post laparoscopic reduction of small bowel obstruction placement of mesh, IV antibiotics for UTI and pleural effusion, possible early pneumonia with dyspnea, and remote possibility of other pulmonic or systemic pathology from [facility] environmental exposures. Patient has adjusted well, but is noted by team and with input from spouse that he has had worsening cognitive decline in need of further assessment. PLAN: 1. Rehab- PT/OT advance gait and ADls, strengthen/stretch/maintain ROM all 4 limbs. We'll work on weaning off pain medication and continue with therapy interventions to optimize possible capacity to participate consistently and safely. 2. Medical conditions -HTN -amlodipine -HLD- c/u statins -DM SSI, diet, education 3. Resp - continue incentive spirometry, monitor for infection, clear, 1 more day Augmentin then will DC. Need thorough care in presence of valve replacement. 4. Endo- 5. - PVR, bladder training if indicated. 6. GI ppx-adjusted laxatives and discontinued. Magnesium. He was having multiple loose incontinent stools. no incontinent episodes x 2 days, but having regular BM now. Continue, slowly progressed soft diet to regular diet this week 7. Skin-Usual nursing protocols to maintain skin integrity 8. Neuro-AMS will proceed with cog eval and reorientation, safety assessments DISPOSITION Home with TIME SPENT: Chart Review, examination and documentation 25 minutes. Allergies Coded Allergies: diphenhydramine (Verified Allergy, Severe, SWELLING, 01/09/21) FISH (Verified Allergy, Unknown, 06/14/08) POULTRY (Verified Allergy, Unknown, DARK MEAT, 06/14/08) bacitracin (Verified Allergy, Unknown, 01/09/21) dorzolamide (Verified Allergy, Unknown, 01/09/21) neomycin (Verified Allergy, Unknown, 01/09/21) polymyxin B (Verified Allergy, Unknown, 01/09/21) shellfish derived (Verified Allergy, Unknown, 01/16/21) timolol (Verified Allergy, Unknown, 01/09/21) valsartan (Verified Allergy, Unknown, 01/09/21) Vital Signs Vital Signs Date Time Temp Pulse Resp B/P (MAP) Pulse Ox O2 Delivery O2 Flow Rate FiO2 01/23/21 08:31 102 164/82 01/23/21 06:00 97.4 20 97 Room Air Current Medications Current Medications Current Medications Medications (Trade) Dose Ordered Sig/Dion Route PRN Reason Start Time Stop Time Status Last Admin Dose Admin Acetaminophen (Tylenol Tab) 650 mg DAILYPRN PRN PO PAIN LEVEL 1-4 01/17/21 16:15 01/17/21 16:29 DC Acetaminophen (Tylenol Tab) 650 mg Q4HP PRN PO MILD PAIN (PS 1-4) 01/17/21 14:10 01/18/21 05:31 Albuterol Sulfate (Proventil, Ventolin Hfa) 2 puff QID PRN INH SOB/WHEEZING 01/17/21 16:15 Alprazolam (Xanax) 0.25 mg BID PRN PO anxiety 01/17/21 16:15 01/21/21 13:30 Amoxicillin/ Clavulanate Potassium (Augmentin) 875 mg BID PO 01/17/21 21:00 01/22/21 23:59 DC 01/22/21 20:23 Atenolol (Tenormin) 25 mg DAILY PO 01/18/21 09:00 01/23/21 08:31 Atorvastatin Calcium (Lipitor) 40 mg QHS PO 01/17/21 21:00 01/22/21 20:23 Brimonidine Tartrate (Alphagan P 0.1%) 1 drop QAM OU 01/18/21 09:00 01/23/21 08:31 Clopidogrel Bisulfate (PLAVix) 75 mg DAILY PO 01/18/21 09:00 01/23/21 08:26 Furosemide (Lasix) 20 mg DAILY PO 01/18/21 09:00 01/23/21 08:26 Home Med (Home Med List Complete!) ASDIRECTED XX 01/17/21 14:55 01/17/21 15:42 DC Latanoprost (Xalatan 0.005% Op Soln) 1 drop QPM OU 01/17/21 21:00 01/22/21 20:24 Levothyroxine Sodium (Synthroid) 75 mcg DAILY@0600 PO 01/18/21 06:00 01/23/21 05:39 Lorazepam (Ativan) 0.5 mg DAILY@1700 PO 01/19/21 17:00 01/22/21 16:53 Magnesium Oxide (Mag-Ox) 400 mg DAILY PO 01/18/21 09:00 01/18/21 10:08 DC 01/18/21 09:50 Omeprazole (PriLOSEC) 20 mg DAILY PO 01/18/21 09:00 01/17/21 16:29 DC Omeprazole (PriLOSEC) 20 mg DAILY PO 01/18/21 09:00 01/23/21 08:26 Ondansetron HCl (Zofran) 4 mg Q6HP PRN PO NAUSEA 01/17/21 14:10 Oxycodone/ Acetaminophen (Percocet 5mg/ 325mg Tablet) 1 tab Q4HP PRN PO MODERATE PAIN (PS 5-7) 01/17/21 16:15 01/19/21 11:01 DC Oxycodone/ Acetaminophen (Percocet 5mg/ 325mg Tablet) 1 tab Q8HP PRN PO MODERATE PAIN (PS 5-7) 01/19/21 18:00 Polyethylene Glycol (Miralax) 1 pkt DAILY PO 01/17/21 09:00 01/21/21 12:19 DC 01/17/21 16:54 Potassium Chloride (Micro-K Extencaps) 10 meq DAILY PO 01/18/21 09:00 01/23/21 08:26 Psyllium Hydrophilic Mucilloid (Metamucil) 1 pkt DAILY PO 01/22/21 09:00 01/23/21 08:27 Salmeterol Xinafoate/ Fluticasone (Advair Hfa 115/ ) 2 puff RBID INH 01/17/21 20:00 01/23/21 07:47 Senna/Docusate Sodium (Senokot S) 1 tab BID PO 01/17/21 21:00 01/21/21 12:19 DC 01/20/21 21:12 Simethicone (Mylicon) 80 mg QIDP PRN PO BLOATING 01/17/21 14:10 Warfarin Sodium (Coumadin) 2.5 mg DAILY@17 PO 01/18/21 17:00 01/22/21 17:29 DC 01/22/21 16:53 Warfarin Sodium (Coumadin) 5 mg DAILY@17 PO 01/23/21 17:00 AYANNA MCCONNELL MD Jan 23, 2021 09:40
[2021-01-23 12:00] VITALS: BP 158/94
[2021-01-23 12:02] VITALS: BP 162/92
[2021-01-23 12:04] VITALS: BP 132/90
[2021-01-23 14:00] VITALS: BP 148/93
[2021-01-23] MEDS ORDERED: POTASSIUM CHLORIDE 10MEQ SR TABLET PO ONE (15:00)
[2021-01-23] MEDS: LORazepam 0.5 MG TAB PO SCH (17:56)
[2021-01-23] MEDS: WARFARIN SOD 5MG TAB PO SCH (17:56)
[2021-01-23 20:00] VITALS: BP 153/86
[2021-01-23] MEDS: LATANOPROST 0.005% OPHTH SOLN 2.5 ML OU SCH (20:21)
[2021-01-23] MEDS: ATORVASTATIN 20 MG TAB PO SCH (20:21)
[2021-01-24] MEDS: LEVOTHYROXINE 75MCG TABLET (0.075MG) PO SCH (05:36)
[2021-01-24 06:00] VITALS: BP 155/93
[2021-01-24 06:23] LABS: INR 1.49; PROTHROMBIN TIME 18.5 SECONDS (12.7-14.5)
[2021-01-24] MEDS: ADVAIR HFA 115/21MCG INHALER INH SCH ×2 (07:36→19:58)
--- NOTE | 2021-01-24 08:13 | IPNPDOC ---
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 He was admitted to [facility] on 01/09/2021 after a week of escalating abdominal pain, poor appetite, full expanding abdomen causing mid girth discomfort with clothing. Imaging revealed multiple thoracic compression fractures as well as incarcerated bowel in the umbilical hernia with contents tracing into the stomach and esophagus. NG tube was placed removing 1.7 L of gastric content, he was also found to have leukocytosis with tachypnea, lactic acidosis, right pleural effusion, sepsis with altered mental status. He was on chronic Coumadin that had to be normalized and eventually underwent robotic assisted laparoscopic evaluation and treatment, including placement of 10 x 10 cm [place] soft [place] polypropylene mesh by Dr. Barnett 01.16.2021 for incarcerated loops of bowel in long-standing umbilical hernia and small bowel obstruction. Intraoperatively significant diastases, greater than 6 cm at the level of umbilicus extending throughout the midline, was noted along with significant bladder distention and postoperatively he was incontinent of bowel and bladder function, he stabilized and was transferred to ARU on 01.17.2021 for comprehensive rehabilitation. 01.18.2021 Patient acclimating well, cognitive challenges and general disorientation noted by team, confirmed by . Having greater success with continence of bowel and bladder, but a bit impulsive. Minimal complaints of pain. Nursing notes several near liquid stools overnight. Tolerating full liquids. 01.19.2021 Patient sundowning at night, and nursing confirm general confusion worse since his procedures. Speech eval was requested showing impairment. Patient has no complaints of pain today is oriented to person and place and year. He remains impulsive, requiring redirection by nursing and is still unsteady on his feet. Reportedly having loose bowel movements, stopped magnesium, tolerating progression to soft diet. 01.22.2021 He did well over the weekend, tolerated progression of diet is soft and then regular diet this morning. His is here today and also observes he seems to be much clearer and in less distress with less shortness of breath. He was having frequent loose stools, reduced laxatives and added some fiber with encour agement to continue good fluid intake He feels he is gaining strength, is still noted to be impulsive at times, some safety awareness challenges, potassium dipped a bit. Well recheck that now that his diet is now stabilizing 11. No complaints this morning, admits his head is screwed up speaking about numbers, I think he might be referring to BP levels being elevated. Tolerating regular/soft diet with no abdominal pain, maintaining good PO intake, Still a bit impulsive but redirectable and gaining better safety awareness. . Sleeping well, seems clearer today. Oriented to person, place, month, day of week. No complaints of pain, has not had to take oxycodone a few days, will DC that and added KCL salt substitute to help boost low K+ related to diuretics, appetite good with soft/regular diet, tolerating with no increase in pain and regular BM. Participating in therapy, needs work on consistency and cognitive /safety issues. REVIEW OF SYSTEMS: The following is a completed review of systems and has been reviewed. Review of systems otherwise unremarkable. PAIN: abdominal pain improving. EYES: No recent vision changes. EARS, NOSE, & THROAT: No throat pain, or dysphagia, or rhinorrhea. CARDIOVASCULAR: Denies chest pain or palpitations. PULMONARY: has had shortness of breath, improved with cardiovascular interventions GASTROINTESTINAL: Challenges with incontinence GENITOURINARY: . Challenges with incontinence MUSCULOSKELETAL: . Multiple thoracic Compression fractures NEUROLOGICAL:.altered mentation HEMATOLOGICAL: no bleeding or bruising SKIN: .healing laparoscopy ports PSYCHIATRIC: Unremarkable. All other review of systems found to be negative. ALLERGIES: See Below MEDICATIONS: Reviewed, see below. OBJECTIVE: VITAL SIGNS: Please see below. GENERAL: Pleasant and cooperative. No acute distress. HEENT: Extraocular movements intact. Clear conjunctiva, no adenopathy or thyromegaly. Bulbous hypertrophic nose with deviated septum, oropharynx more moist mucosa, poor dentition, Full cervical range of motion without tenderness or spasm. CARDIOVASCULAR: Regular rate and rhythm. I/ murmur, occasional extra beat, pacemaker present L pectoral region. LUNGS: Clear to auscultation bilaterally, raspy breath sounds. No wheezes. No rhonchi. ABDOMEN: Soft, less tenderness, healing laparoscopic port sites right upper and lateral region, less distended. Positive normal active bowel sounds. NEUROLOGICAL: Cranial nerves II through XII grossly intact. Sensation grossly intact. 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 No peripheral edema, OA changes full forward flexion SKIN: .Healing Laparoscopy sites, better turgor. FUNCTIONAL STATUS: Anxious during sessions, needs redirection, may be driving BP up, equilibrates when remeasured when calm. Supine to Sit Modified Independant Sit to Supine Standby Assist Bed Mobility Notes SBA for sit>supine with cues to position self in mid-line and scoot to HOB Sit to Stand Contact Guard Assist Stand to Sit Contact Guard Assist Functional Transfer Notes: AD not used Bathing Standby Assist Dressing-Upper Body Standby Assist Dressing-Lower Body Contact Guard Assist LABORATORY DATA: Reviewed. Please see below.Potassium slightly low. MICROBIOLOGY: See below ASSESSMENT AND PLAN: DIAGNOSES: Status post small bowel obstruction with repair of incarcerated umbilical hernia 01.16.2021 Delirium Leukocytosis. Anemia Sepsis. Multiple Compression fracture thoracic spine. CHF Dependent edema. hematoma. Head Pleural effusion Emphysema. Status post UTI [place] high. Hypothyroidism. Hypertension. Hyperlipidemia. Hypokalemia Glaucoma. GERD. Vascular abnormality. 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 ASSESSMENT: This is an 85 year-old man status post recent pacemaker and valve replacement 09/2020 and past medical history of CAD s/p stent, hypertension, hyperlipidemia, hypothyroidism, Barretts esophagus, diverticular disease, emphysema, GERD, umbilical hernia, osteoporosis with multiple thoracic compression fractures, who presents status post laparoscopic reduction of small bowel obstruction placement of mesh, IV antibiotics for UTI and pleural effusion, possible early pneumonia with dyspnea, and remote possibility of other pulmonic or systemic pathology from director long term care environmental exposures. Patient has adjusted well, but is noted by team and with input from spouse that he has had worsening cognitive decline in need of further assessment. PLAN: 1. Rehab- PT/OT advance gait and ADls, strengthen/stretch/maintain ROM all 4 limbs. We'll work on weaning off pain medication and continue with therapy interventions to optimize possible capacity to participate consistently and safely. 2. Medical conditions -HTN Atenolol, Lasix, inc K+ to 20meq, -HLD- c/u statins 3. Resp - continue incentive spirometry, monitor for infection, clear, off abx 4. . -will monitor UA since abx dcd and some deterioration in mentation 5. GI ppx-adjusted laxatives and discontinued. Magnesium. He was having multiple loose incontinent stools. no incontinent episodes x 2 days, but having regular BM now. Continue, slowly progressed soft diet to regular diet this week, added fiber, tolerating with good fluid intake. 6. Skin-Usual nursing protocols to maintain skin integrity 7. Neuro-AMS SL augmenting cog eval and reorientation, safety assessments DISPOSITION Home with TIME SPENT: Chart Review, examination and documentation 25 minutes. Allergies Coded Allergies: diphenhydramine (Verified Allergy, Severe, SWELLING, 01/09/21) FISH (Verified Allergy, Unknown, 06/14/08) POULTRY (Verified Allergy, Unknown, DARK MEAT, 06/14/08) bacitracin (Verified Allergy, Unknown, 01/09/21) dorzolamide (Verified Allergy, Unknown, 01/09/21) neomycin (Verified Allergy, Unknown, 01/09/21) polymyxin B (Verified Allergy, Unknown, 01/09/21) shellfish derived (Verified Allergy, Unknown, 01/16/21) timolol (Verified Allergy, Unknown, 01/09/21) valsartan (Verified Allergy, Unknown, 01/09/21) Vital Signs Vital Signs Date Time Temp Pulse Resp B/P (MAP) Pulse Ox O2 Delivery O2 Flow Rate FiO2 01/24/21 06:00 98.0 88 18 155/93 (113) 96 Room Air Laboratory Data CBC/BMP Laboratory Tests 01/23/21 09:22 Labs 24H Laboratory Tests 2 01/24/21 05:59: Prothrombin Time 18.5H, Prothromb Time International Ratio 1.49 Current Medications Current Medications Current Medications Medications (Trade) Dose Ordered Sig/Dion Route PRN Reason Start Time Stop Time Status Last Admin Dose Admin Acetaminophen (Tylenol Tab) 650 mg DAILYPRN PRN PO PAIN LEVEL 1-4 01/17/21 16:15 01/17/21 16:29 DC Acetaminophen (Tylenol Tab) 650 mg Q4HP PRN PO MILD PAIN (PS 1-4) 01/17/21 14:10 01/18/21 05:31 Albuterol Sulfate (Proventil, Ventolin Hfa) 2 puff QID PRN INH SOB/WHEEZING 01/17/21 16:15 Alprazolam (Xanax) 0.25 mg BID PRN PO anxiety 01/17/21 16:15 01/21/21 13:30 Amoxicillin/ Clavulanate Potassium (Augmentin) 875 mg BID PO 01/17/21 21:00 01/22/21 23:59 DC 01/22/21 20:23 Atenolol (Tenormin) 25 mg DAILY PO 01/18/21 09:00 01/23/21 08:31 Atorvastatin Calcium (Lipitor) 40 mg QHS PO 01/17/21 21:00 01/23/21 20:21 Brimonidine Tartrate (Alphagan P 0.1%) 1 drop QAM OU 01/18/21 09:00 01/23/21 08:31 Clopidogrel Bisulfate (PLAVix) 75 mg DAILY PO 01/18/21 09:00 01/23/21 08:26 Furosemide (Lasix) 20 mg DAILY PO 01/18/21 09:00 01/23/21 08:26 Home Med (Home Med List Complete!) ASDIRECTED XX 01/17/21 14:55 01/17/21 15:42 DC Latanoprost (Xalatan 0.005% Op Soln) 1 drop QPM OU 01/17/21 21:00 01/23/21 20:21 Levothyroxine Sodium (Synthroid) 75 mcg DAILY@0600 PO 01/18/21 06:00 01/24/21 05:36 Lorazepam (Ativan) 0.5 mg DAILY@1700 PO 01/19/21 17:00 01/23/21 17:56 Magnesium Oxide (Mag-Ox) 400 mg DAILY PO 01/18/21 09:00 01/18/21 10:08 DC 01/18/21 09:50 Omeprazole (PriLOSEC) 20 mg DAILY PO 01/18/21 09:00 01/17/21 16:29 DC Omeprazole (PriLOSEC) 20 mg DAILY PO 01/18/21 09:00 01/23/21 08:26 Ondansetron HCl (Zofran) 4 mg Q6HP PRN PO NAUSEA 01/17/21 14:10 Oxycodone/ Acetaminophen (Percocet 5mg/ 325mg Tablet) 1 tab Q4HP PRN PO MODERATE PAIN (PS 5-7) 01/17/21 16:15 01/19/21 11:01 DC Oxycodone/ Acetaminophen (Percocet 5mg/ 325mg Tablet) 1 tab Q8HP PRN PO MODERATE PAIN (PS 5-7) 01/19/21 18:00 Cancel Polyethylene Glycol (Miralax) 1 pkt DAILY PO 01/17/21 09:00 01/21/21 12:19 DC 01/17/21 16:54 Potassium Chloride (Micro-K Extencaps) 10 meq DAILY PO 01/18/21 09:00 01/24/21 07:37 DC 01/23/21 08:26 Potassium Chloride (Micro-K Extencaps) 20 meq DAILY PO 01/24/21 09:00 Psyllium Hydrophilic Mucilloid (Metamucil) 1 pkt DAILY PO 01/22/21 09:00 01/23/21 08:27 Salmeterol Xinafoate/ Fluticasone (Advair Hfa / 21) 2 puff RBID INH 01/17/21 20:00 01/24/21 07:36 Senna/Docusate Sodium (Senokot S) 1 tab BID PO 01/17/21 21:00 01/21/21 12:19 DC 01/20/21 21:12 Simethicone (Mylicon) 80 mg QIDP PRN PO BLOATING 01/17/21 14:10 Warfarin Sodium (Coumadin) 2.5 mg DAILY@17 PO 01/18/21 17:00 01/22/21 17:29 DC 01/22/21 16:53 Warfarin Sodium (Coumadin) 5 mg DAILY@17 PO 01/23/21 17:00 01/23/21 17:56 AYANNA MCCONNELL MD Jan 24, 2021 08:13
[2021-01-24] MEDS: atenoloL 25 MG TAB PO SCH (09:28)
[2021-01-24] MEDS: METAMUCIL (PSYLLIUM) PACKET PO SCH (09:28)
[2021-01-24] MEDS: OMEPRAZOLE 20 MG CAP PO SCH (09:28)
[2021-01-24] MEDS: FUROSEMIDE 20 MG TAB PO SCH (09:28)
[2021-01-24] MEDS: CLOPIDOGREL 75 MG TAB PO SCH (09:29)
[2021-01-24] MEDS: POTASSIUM CHLORIDE 10MEQ SR TABLET PO SCH (09:29)
[2021-01-24] MEDS: BRIMONIDINE 0.1% OPHTH SOLN 5 ML OU SCH (09:29)
[2021-01-24 13:51] VITALS: BP 124/71
[2021-01-24] MEDS: LORazepam 0.5 MG TAB PO SCH (17:11)
[2021-01-24] MEDS: WARFARIN SOD 5MG TAB PO SCH (17:11)
[2021-01-24 20:00] VITALS: BP 143/76
[2021-01-24] MEDS: ATORVASTATIN 20 MG TAB PO SCH (20:11)
[2021-01-24] MEDS: LATANOPROST 0.005% OPHTH SOLN 2.5 ML OU SCH (20:11)
[2021-01-25] MEDS: LEVOTHYROXINE 75MCG TABLET (0.075MG) PO SCH (05:38)
[2021-01-25 06:00] VITALS: BP 160/88
[2021-01-25 06:55] LABS: BLOOD UREA NITROGEN 11 MG/DL (7-18); CALCIUM LEVEL 9.2 MG/DL (8.8-10.2); CARBON DIOXIDE LEVEL 24 MEQ/L (21-32); CHLORIDE LEVEL 108 MEQ/L (98-107); CREATININE FOR GFR 0.78 MG/DL (0.70-1.30); GLOMERULAR FILTRATION RATE > 60.0 (>35); GLUCOSE, FASTING 89 MG/DL (70-100); SODIUM LEVEL 143 MEQ/L (136-145)
[2021-01-25] MEDS: ADVAIR HFA 115/21MCG INHALER INH SCH ×2 (07:24→20:50)
[2021-01-25] MEDS ORDERED: POTASSIUM CHLORIDE 10MEQ SR TABLET PO ONE (08:00)
[2021-01-25] MEDS: FUROSEMIDE 20 MG TAB PO SCH (09:03)
[2021-01-25] MEDS: OMEPRAZOLE 20 MG CAP PO SCH (09:03)
[2021-01-25] MEDS: CLOPIDOGREL 75 MG TAB PO SCH (09:03)
[2021-01-25] MEDS: atenoloL 25 MG TAB PO SCH (09:04)
[2021-01-25] MEDS: POTASSIUM CHLORIDE 10MEQ SR TABLET PO SCH (09:05)
[2021-01-25] MEDS: METAMUCIL (PSYLLIUM) PACKET PO SCH (09:05)
[2021-01-25] MEDS: BRIMONIDINE 0.1% OPHTH SOLN 5 ML OU SCH (09:05)
--- NOTE | 2021-01-25 09:09 | IPNPDOC ---
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 He was admitted to [facility] on 01/09/2021 after a week of escalating abdominal pain, poor appetite, full expanding abdomen causing mid girth discomfort with clothing. Imaging revealed multiple thoracic compression fractures as well as incarcerated bowel in the umbilical hernia with contents tracing into the stomach and esophagus. NG tube was placed removing 1.7 L of gastric content, he was also found to have le ukocytosis with tachypnea, lactic acidosis, right pleural effusion, sepsis with altered mental status. He was on chronic Coumadin that had to be normalized and eventually underwent robotic assisted laparoscopic evaluation and treatment, including placement of 10 x 10 cm [place] soft [place] polypropylene mesh by Dr. Barnett 01.16.2021 for incarcerated loops of bowel in long-standing umbilical hernia and small bowel obstruction. Intraoperatively significant diastases, greater than 6 cm at the level of umbilicus extending throughout the midline, was noted along with significant bladder distention and postoperatively he was incontinent of bowel and bladder function, he stabilized and was transferred to ARU on 01.17.2021 for comprehensive rehabilitation. 01.18.2021 Patient acclimating well, cognitive challenges and general disorientation noted by team, confirmed by . Having greater success with continence of bowel and bladder, but a bit impulsive. Minimal complaints of pain. Nursing notes several near liquid stools overnight. Tolerating full liquids. 01.19.2021 Patient sundowning at night, and nursing confirm general confusion worse since his procedures. Speech eval was requested showing impairment. Patient has no complaints of pain today is oriented to person and place and year. He remains impulsive, requiring redirection by nursing and is still unsteady on his feet. Reportedly having loose bowel movements, stopped magnesium, tolerating progression to soft diet. 01.22.2021 He did well over the weekend, tolerated progression of diet is soft and then regular diet this morning. His is here today and also observes he seems to be much clearer and in less distress with less shortness of breath. He was having frequent loose stools, reduced laxatives and added some fiber with encouragement to continue good fluid intake He feels he is gaining strength, is still noted to be impulsive at times, some safety awareness challenges, potassium dipped a bit. Well recheck that now that his diet is now stabilizing 11.2 No complaints this morning, admits his head is screwed up speaking about numbers, I think he might be referring to BP levels being elevated. Tolerating regular/soft diet with no abdominal pain, maintaining good PO intake, Still a bit impulsive but redirectable and gaining better safety awareness. .3.2020 Sleeping well, seems clearer today. Oriented to person, place, month, day of week. No complaints of pain, has not had to take oxycodone a few days, will DC that and added KCL salt substitute to help boost low K+ related to diuretics, appetite good with soft/regular diet, tolerating with no increase in pain and regular BM. Participating in therapy, needs work on consistency and cognitive /safety issues. 01.25.2021 Slept well, moving bowels, less confused but still not oriented to month without cues (tur[place]). No pain, working on safety issues, cues to lock rolling walker, and sequencing. Dietary working on supplementation. REVIEW OF SYSTEMS: The following is a completed review of systems and has been reviewed. Review of systems otherwise unremarkable. PAIN: abdominal pain improving. EYES: No recent vision changes. EARS, NOSE, & THROAT: No throat pain, or dysphagia, or rhinorrhea. CARDIOVASCULAR: Denies chest pain or palpitations. PULMONARY: has had shortness of breath, improved with cardiovascular interventions GASTROINTESTINAL: Challenges with incontinence GENITOURINARY: . Challenges with incontinence MUSCULOSKELETAL: . Multiple thoracic Compression fractures NEUROLOGICAL:.altered mentation HEMATOLOGICAL: no bleeding or bruising SKIN: .healing laparoscopy ports PSYCHIATRIC: Unremarkable. All other review of systems found to be negative. ALLERGIES: See Below MEDICATIONS: Reviewed, see below. OBJECTIVE: VITAL SIGNS: Please see below. GENERAL: Pleasant and cooperative. No acute distress. HEENT: Extraocular movements intact. Clear conjunctiva, no adenopathy or thyromegaly. Bulbous hypertrophic nose with deviated septum, oropharynx more moist mucosa, poor dentition, Full cervical range of motion without tenderness or spasm. CARDIOVASCULAR: Regular rate and rhythm. I/ murmur, occasional extra beat, pacemaker present L pectoral region. LUNGS: Clear to auscultation bilaterally, raspy breath sounds. No wheezes. No rhonchi. ABDOMEN: Soft, no tenderness, healing laparoscopic port sites right upper and lateral region, less distended. Positive normal active bowel sounds. NEUROLOGICAL: Cranial nerves II through XII grossly intact. Sensation grossly intact. EXTREMITIES: 5 /5 vp product management. No peripheral edema, OA changes full forward flexion SKIN: .Healing Laparoscopy sites, better turgor. FUNCTIONAL STATUS: Anxious during sessions, needs redirection, may be driving BP up, equilibrates when remeasured when calm. Observed working on gait through obstacle course, still not fully steady, needs repeated cues. Supine to Sit Modified Independant Sit to Supine Standby Assist Bed Mobility Notes SBA for sit>supine with cues to position self in mid-line and scoot to HOB Sit to Stand Contact Guard Assist Stand to Sit Contact Guard Assist Functional Transfer Notes: AD not used Bathing Standby Assist Dressing-Upper Body Standby Assist Dressing-Lower Body Contact Guard Assist LABORATORY DATA: Reviewed. Please see below. Potassium dropped further. MICROBIOLOGY: See below ASSESSMENT AND PLAN: DIAGNOSES: Status post small bowel obstruction with repair of incarcerated umbilical hernia 01.16.2021 Delirium Leukocytosis. Anemia Sepsis. Multiple Compression fracture thoracic spine. CHF Dependent edema. hematoma. Head Pleural effusion Emphysema. Status post UTI [place] high. Hypothyroidism. Hypertension. Hyperlipidemia. Hypokalemia Glaucoma. GERD. Vascular abnormality. 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 ASSESSMENT: This is an 85 year-old man status post recent pacemaker and valve replacement 09/2020 and past medical history of CAD s/p stent, hypertension, hyperlipidemia, hypothyroidism, Barretts esophagus, diverticular disease, emphysema, GERD, umbilical hernia, osteoporosis with multiple thoracic compression fractures, who presents status post laparoscopic reduction of small bowel obstruction placement of mesh, IV antibiotics for UTI and pleural effusion, possible early pneumonia with dyspnea, and remote possibility of other pulmonic or systemic pathology from [employer] environmental exposures. Patient has adjusted well, but is noted by team and with input from spouse that he has had worsening cognitive decline in need of further assessment. PLAN: 1. Rehab- PT/OT advance gait and ADls, strengthen/stretch/maintain ROM all 4 limbs. We'll work on weaning off pain medication and continue with therapy interventions to optimize possible capacity to participate consistently and safely. 2. Medical conditions -HTN Atenolol, Lasix, inc K+ to 40meq, dietary addition, monitor -HLD- c/u statins 3. Resp - continue incentive spirometry, monitor for infection, clear, off abx 4. . -will monitor UA since abx dcd and some deterioration in mentation 5. GI ppx-adjusted laxatives and discontinued. Magnesium. He was having multiple loose incontinent stools. no incontinent episodes x 2 days, but having regular BM now. Continue, slowly progressed soft diet to regular diet this week, added fiber, tolerating with good fluid intake. 6. Skin-Usual nursing protocols to maintain skin integrity 7. Neuro-AMS SL augmenting cog eval and reorientation, safety assessments DISPOSITION Home with TIME SPENT: Chart Review, examination and documentation 25 minutes. Allergies Coded Allergies: diphenhydramine (Verified Allergy, Severe, SWELLING, 01/09/21) FISH (Verified Allergy, Unknown, 06/14/08) POULTRY (Verified Allergy, Unknown, DARK MEAT, 06/14/08) bacitracin (Verified Allergy, Unknown, 01/09/21) dorzolamide (Verified Allergy, Unknown, 01/09/21) neomycin (Verified Allergy, Unknown, 01/09/21) polymyxin B (Verified Allergy, Unknown, 01/09/21) shellfish derived (Verified Allergy, Unknown, 01/16/21) timolol (Verified Allergy, Unknown, 01/09/21) valsartan (Verified Allergy, Unknown, 01/09/21) Vital Signs Vital Signs Date Time Temp Pulse Resp B/P (MAP) Pulse Ox O2 Delivery O2 Flow Rate FiO2 01/25/21 09:04 87 158/86 01/25/21 06:00 98.4 20 98 Room Air Laboratory Data CBC/BMP Laboratory Tests 01/25/21 06:18 Labs 24H Laboratory Tests 2 01/24/21 16:40: Urine Color YELLOW, Urine Appearance CLOUDYH, Urine pH 5.0, Urine Specific [place] 1.015, Urine Protein NEGATIVE, Urine Glucose (UA) NEGATIVE, Urine Ketones NEGATIVE, Urine Blood 2+H, Urine Nitrite NEGATIVE, Urine Bilirubin NEG ATIVE, Urine Urobilinogen 0.2, Urine Leukocyte Esterase 2+H, Urine WBC (Auto) 21H, Urine RBC (Auto) 9H, Urine Hyaline Casts (Auto) 0, Urine Bacteria (Auto) NEGATIVE, Urine Squamous Epithelial Cells 0, Urine Mucus (Auto) LARGE, Urine Sperm (Auto) 01/25/21 06:18: Anion Gap 11, Glomerular Filtration Rate > 60.0, Calcium Level 9.2 Microbiology Microbiology 01/24/21 Urine Culture, Received Pending Current Medications Current Medications Current Medications Medications (Trade) Dose Ordered Sig/Dion Route PRN Reason Start Time Stop Time Status Last Admin Dose Admin Acetaminophen (Tylenol Tab) 650 mg DAILYPRN PRN PO PAIN LEVEL 1-4 01/17/21 16:15 01/17/21 16:29 DC Acetaminophen (Tylenol Tab) 650 mg Q4HP PRN PO MILD PAIN (PS 1-4) 01/17/21 14:10 01/18/21 05:31 Albuterol Sulfate (Proventil, Ventolin Hfa) 2 puff QID PRN INH SOB/WHEEZING 01/17/21 16:15 Alprazolam (Xanax) 0.25 mg BID PRN PO anxiety 01/17/21 16:15 01/21/21 13:30 Amoxicillin/ Clavulanate Potassium (Augmentin) 875 mg BID PO 01/17/21 21:00 01/22/21 23:59 DC 01/22/21 20:23 Atenolol (Tenormin) 25 mg DAILY PO 01/18/21 09:00 01/25/21 09:04 Atorvastatin Calcium (Lipitor) 40 mg QHS PO 01/17/21 21:00 01/24/21 20:11 Brimonidine Tartrate (Alphagan P 0.1%) 1 drop QAM OU 01/18/21 09:00 01/25/21 09:05 Clopidogrel Bisulfate (PLAVix) 75 mg DAILY PO 01/18/21 09:00 01/25/21 09:03 Furosemide (Lasix) 20 mg DAILY PO 01/18/21 09:00 01/25/21 09:03 Home Med (Home Med List Complete!) ASDIRECTED XX 01/17/21 14:55 01/17/21 15:42 DC Latanoprost (Xalatan 0.005% Op Soln) 1 drop QPM OU 01/17/21 21:00 01/24/21 20:11 Levothyroxine Sodium (Synthroid) 75 mcg DAILY@0600 PO 01/18/21 06:00 01/25/21 05:38 Lorazepam (Ativan) 0.5 mg DAILY@1700 PO 01/19/21 17:00 01/24/21 17:11 Magnesium Oxide (Mag-Ox) 400 mg DAILY PO 01/18/21 09:00 01/18/21 10:08 DC 01/18/21 09:50 Miscellaneous (Unresolved Clarification Entry) SEE LABEL COMMENTS DAILY XX 01/24/21 09:00 01/24/21 13:58 DC Omeprazole (PriLOSEC) 20 mg DAILY PO 01/18/21 09:00 01/17/21 16:29 DC Omeprazole (PriLOSEC) 20 mg DAILY PO 01/18/21 09:00 01/25/21 09:03 Ondansetron HCl (Zofran) 4 mg Q6HP PRN PO NAUSEA 01/17/21 14:10 Oxycodone/ Acetaminophen (Percocet 5mg/ 325mg Tablet) 1 tab Q4HP PRN PO MODERATE PAIN (PS 5-7) 01/17/21 16:15 01/19/21 11:01 DC Oxycodone/ Acetaminophen (Percocet 5mg/ 325mg Tablet) 1 tab Q8HP PRN PO MODERATE PAIN (PS 5-7) 01/19/21 18:00 Cancel Polyethylene Glycol (Miralax) 1 pkt DAILY PO 01/17/21 09:00 01/21/21 12:19 DC 01/17/21 16:54 Potassium Chloride (Micro-K Extencaps) 10 meq DAILY PO 01/18/21 09:00 01/24/21 07:37 DC 01/23/21 08:26 Potassium Chloride (Micro-K Extencaps) 20 meq DAILY PO 01/24/21 09:00 01/25/21 09:05 Psyllium Hydrophilic Mucilloid (Metamucil) 1 pkt DAILY PO 01/22/21 09:00 01/25/21 09:05 Salmeterol Xinafoate/ Fluticasone (Advair Hfa 115/ 21) 2 puff RBID INH 01/17/21 20:00 01/25/21 07:24 Senna/Docusate Sodium (Senokot S) 1 tab BID PO 01/17/21 21:00 01/21/21 12:19 DC 01/20/21 21:12 Simethicone (Mylicon) 80 mg QIDP PRN PO BLOATING 01/17/21 14:10 Warfarin Sodium (Coumadin) 2.5 mg DAILY@17 PO 01/18/21 17:00 01/22/21 17:29 DC 01/22/21 16:53 Warfarin Sodium (Coumadin) 5 mg DAILY@17 PO 01/23/21 17:00 01/24/21 17:11 AYANNA MCCONNELL MD Jan 25, 2021 09:09
[2021-01-25 14:26] VITALS: BP 126/76
[2021-01-25] MEDS: LORazepam 0.5 MG TAB PO SCH (17:52)
[2021-01-25] MEDS: WARFARIN SOD 5MG TAB PO SCH (17:52)
[2021-01-25 20:00] VITALS: BP 136/67
[2021-01-25] MEDS: LATANOPROST 0.005% OPHTH SOLN 2.5 ML OU SCH (21:19)
[2021-01-25] MEDS: ATORVASTATIN 20 MG TAB PO SCH (21:19)
[2021-01-26] MEDS: LEVOTHYROXINE 75MCG TABLET (0.075MG) PO SCH (05:32)
[2021-01-26 06:00] VITALS: BP 167/84
[2021-01-26 06:45] LABS: INR 1.95; PROTHROMBIN TIME 22.7 SECONDS (12.7-14.5)
[2021-01-26] MEDS: ADVAIR HFA 115/21MCG INHALER INH SCH ×2 (07:10→19:09)
--- NOTE | 2021-01-26 08:19 | IPNPDOC ---
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 He was admitted to [facility] on 01/09/2021 after a week of escalating abdominal pain, poor appetite, full expanding abdomen causing mid girth discomfort with clothing. Imaging revealed multiple thoracic compression fractures as well as incarcerated bowel in the umbilical hernia with contents tracing into the stomach and esophagus. NG tube was placed removing 1.7 L of gastric content, he was also found to have leukocytosis with tachypnea, lactic acidosis, right pleural effusion, sepsis with altered mental status. He was on chronic Coumadin that had to be normalized and eventually underwent robotic assisted laparoscopic evaluation and treatment, including placement of 10 x 10 cm [place] soft [place] polypropylene mesh by Dr. Barnett 01.16.2021 for incarcerated loops of bowel in long-standing umbilical hernia and small bowel obstruction. Intraoperatively significant diastases, greater than 6 cm at the level of umbilicus extending throughout the midline, was noted along with significant bladder distention and postoperatively he was incontinent of bowel and bladder function, he stabilized and was transferred to ARU on 01.17.2021 for comprehensive rehabilitation. 01.18.2021 Patient acclimating well, cognitive challenges and general disorientation noted by team, confirmed by . Having greater success with continence of bowel and bladder, but a bit impulsive. Minimal complaints of pain. Nursing notes several near liquid stools overnight. Tolerating full liquids. 01.19.2021 Patient sundowning at night, and nursing confirm general confusion worse since his procedures. Speech eval was requested showing impairment. Patient has no complaints of pain today is oriented to person and place and year. He remains impulsive, requiring redirection by nursing and is still unsteady on his feet. Reportedly having loose bowel movements, stopped magnesium, tolerating progression to soft diet. 01.22.2021 He did well over the weekend, tolerated progression of diet is soft and then regular diet this morning. His is here today and also observes he seems to be much clearer and in less distress with less shortness of breath. He was having frequent loose stools, reduced laxatives and added some fiber with enco uragement to continue good fluid intake He feels he is gaining strength, is still noted to be impulsive at times, some safety awareness challenges, potassium dipped a bit. Well recheck that now that his diet is now stabilizing 11.2 No complaints this morning, admits his head is screwed up speaking about numbers, I think he might be referring to BP levels being elevated. Tolerating regular/soft diet with no abdominal pain, maintaining good PO intake, Still a bit impulsive but redirectable and gaining better safety awareness. .3.2020 Sleeping well, seems clearer today. Oriented to person, place, month, day of week. No complaints of pain, has not had to take oxycodone a few days, will DC that and added KCL salt substitute to help boost low K+ related to diuretics, appetite good with soft/regular diet, tolerating with no increase in pain and regular BM. Participating in therapy, needs work on consistency and cognitive /safety issues. 01.25.2021 Slept well, moving bowels, less confused but still not oriented to month without cues (tur[place]). No pain, working on safety issues, cues to lock rolling walker, and sequencing. Dietary working on supplementation. 01.26.2021 Slept well last night, less anxious, oriented to person, place, year, still needs prompts to recall the month. Appetite is good. Tolerating regular diet. He had 4 bowel movements yesterday, no further incontinence since Friday. We discussed importance of safety awareness to prevent further complications such as falling. For example, his shoe laces untied which I assisted him with. REVIEW OF SYSTEMS: The following is a completed review of systems and has been reviewed. Review of systems otherwise unremarkable. PAIN: abdominal pain resolved. EYES: No recent vision changes. EARS, NOSE, & THROAT: No throat pain, or dysphagia, or rhinorrhea. CARDIOVASCULAR: Denies chest pain or palpitations. PULMONARY: has had shortness of breath, improved with cardiovascular interventions GASTROINTESTINAL: Challenges with incontinence improved GENITOURINARY: . Challenges with incontinence improved MUSCULOSKELETAL: . Multiple thoracic Compression fractures stable NEUROLOGICAL:.altered mentation, fluctuates HEMATOLOGICAL: no bleeding or bruising SKIN: .healing laparoscopy ports PSYCHIATRIC: Anxious All other review of systems found to be negative. ALLERGIES: See Below MEDICATIONS: Reviewed, see below. OBJECTIVE: VITAL SIGNS: Please see below. GENERAL: Pleasant and cooperative. No acute distress. HEENT: Extraocular movements intact. Clear conjunctiva, no adenopathy or thyromegaly. Bulbous hypertrophic nose with deviated septum, oropharynx more moist mucosa, poor dentition, Full cervical range of motion without tenderness or spasm. CARDIOVASCULAR: Regular rate and rhythm. I/ murmur, occasional extra beat, pacemaker present L pectoral region. LUNGS: Clear to auscultation bilaterally, raspy breath sounds. No wheezes. No rhonchi. ABDOMEN: Soft, no tenderness, healed laparoscopic port sites right upper and lateral region, less distended. Positive normal active bowel sounds. NEUROLOGICAL: Cranial nerves II through XII grossly intact. Sensation grossly intact. 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 No peripheral edema, OA changes SKIN: .Healing Laparoscopy sites, better turgor. FUNCTIONAL STATUS: Anxious during sessions, needs redirection, may be driving BP up, equilibrates when remeasured when calm. Yesterday was pre occupied about needing some medical attention. Cognition Impaired Cognition Comments very confused, disoriented, difficulty following commands yesterday, clearer today Sit to Supine Standby Assist Sit to Stand Contact Guard Assist Stand to Sit Contact Guard Assist Chair to Bed Minimum Assist LABORATORY DATA: Reviewed. Please see below. Potassium dropped further. MICROBIOLOGY: See below ASSESSMENT AND PLAN: DIAGNOSES: Status post small bowel obstruction with repair of incarcerated umbilical hernia 01.16.2021 Delirium Leukocytosis. Anemia Sepsis. Multiple Compression fracture thoracic spine. CHF Dependent edema. hematoma. Head Pleural effusion Emphysema. Status post UTI [place] high. Hypothyroidism. Hypertension. Hyperlipidemia. Hypokalemia Glaucoma. GERD. Vascular abnormality. 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 ASSESSMENT: This is an 85 year-old man status post recent pacemaker and valve replacement 09/2020 and past medical history of CAD s/p stent, hypertension, hyperlipidemia, hypothyroidism, Barretts esophagus, diverticular disease, emphysema, GERD, umbilical hernia, osteoporosis with multiple thoracic compression fractures, who presents status post laparoscopic reduction of small bowel obstruction placement of mesh, IV antibiotics for UTI and pleural effusion, possible early pneumonia with dyspnea, and remote possibility of other pulmonic or systemic pathology 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 Patient has adjusted well, but is noted by team and with input from spouse that he has had worsening cognitive decline in need of further assessment. PLAN: 1. Rehab- PT/OT advance gait and ADls, strengthen/stretch/maintain ROM all 4 limbs. He has weaned off pain medication and we shall continue with therapy interventions to optimize possible capacity to participate consistently and safely with strong day to day carryover. Still fluctuates. Will check NH4 level as another approach to assess vacillating mental status. . 2. Medical conditions -HTN Atenolol, Lasix, inc K+ to 40meq, dietary addition, monitor -HLD- c/u statins 3. Resp - continue incentive spirometry, monitor for infection, clear, off abx 4. . -will monitor UA since abx dcd and some deterioration in mentation 5. GI ppx-adjusted laxatives and discontinued. Magnesium. He was having multiple loose incontinent stools. no incontinent episodes x 2 days, but having regular BM now. Continue, slowly progressed soft diet to regular diet this week, added fiber, tolerating with good fluid intake. 6. Skin-Usual nursing protocols to maintain skin integrity 7. Neuro-AMS SL augmenting cog eval and reorientation, safety assessments DISPOSITION Home with TIME SPENT: Chart Review, examination and documentation 25 minutes. Allergies Coded Allergies: diphenhydramine (Verified Allergy, Severe, SWELLING, 01/09/21) FISH (Verified Allergy, Unknown, 06/14/08) POULTRY (Verified Allergy, Unknown, DARK MEAT, 06/14/08) bacitracin (Verified Allergy, Unknown, 01/09/21) dorzolamide (Verified Allergy, Unknown, 01/09/21) neomycin (Verified Allergy, Unknown, 01/09/21) polymyxin B (Verified Allergy, Unknown, 01/09/21) shellfish derived (Verified Allergy, Unknown, 01/16/21) timolol (Verified Allergy, Unknown, 01/09/21) valsartan (Verified Allergy, Unknown, 01/09/21) Vital Signs Vital Signs Date Time Temp Pulse Resp B/P (MAP) Pulse Ox O2 Delivery O2 Flow Rate FiO2 01/26/21 06:00 98.5 94 20 167/84 (111) 96 Room Air Laboratory Data Labs 24H Laboratory Tests 2 01/26/21 05:49: Prothrombin Time 22.7H, Prothromb Time International Ratio 1.95 Microbiology Microbiology 01/24/21 Urine Culture - Final, Complete Current Medications Current Medications Current Medications Medications (Trade) Dose Ordered Sig/Dion Route PRN Reason Start Time Stop Time Status Last Admin Dose Admin Acetaminophen (Tylenol Tab) 650 mg DAILYPRN PRN PO PAIN LEVEL 1-4 01/17/21 16:15 01/17/21 16:29 DC Acetaminophen (Tylenol Tab) 650 mg Q4HP PRN PO MILD PAIN (PS 1-4) 01/17/21 14:10 01/18/21 05:31 Albuterol Sulfate (Proventil, Ventolin Hfa) 2 puff QID PRN INH SOB/WHEEZING 01/17/21 16:15 Alprazolam (Xanax) 0.25 mg BID PRN PO anxiety 01/17/21 16:15 01/21/21 13:30 Amoxicillin/ Clavulanate Potassium (Augmentin) 875 mg BID PO 01/17/21 21:00 01/22/21 23:59 DC 01/22/21 20:23 Atenolol (Tenormin) 25 mg DAILY PO 01/18/21 09:00 01/26/21 08:10 DC 01/25/21 09:04 Atenolol (Tenormin) 25 mg DAILY@0600 PO 01/26/21 06:00 Atorvastatin Calcium (Lipitor) 40 mg QHS PO 01/17/21 21:00 01/25/21 21:19 Brimonidine Tartrate (Alphagan P 0.1%) 1 drop QAM OU 01/18/21 09:00 01/25/21 09:05 Clopidogrel Bisulfate (PLAVix) 75 mg DAILY PO 01/18/21 09:00 01/25/21 09:03 Furosemide (Lasix) 20 mg DAILY PO 01/18/21 09:00 01/25/21 09:03 Home Med (Home Med List Complete!) ASDIRECTED XX 01/17/21 14:55 01/17/21 15:42 DC Latanoprost (Xalatan 0.005% Op Soln) 1 drop QPM OU 01/17/21 21:00 01/25/21 21:19 Levothyroxine Sodium (Synthroid) 75 mcg DAILY@0600 PO 01/18/21 06:00 01/26/21 05:32 Lorazepam (Ativan) 0.5 mg DAILY@1700 PO 01/19/21 17:00 01/25/21 17:52 Magnesium Oxide (Mag-Ox) 400 mg DAILY PO 01/18/21 09:00 01/18/21 10:08 DC 01/18/21 09:50 Miscellaneous (Unresolved Clarification Entry) SEE LABEL COMMENTS DAILY XX 01/24/21 09:00 01/24/21 13:58 DC Omeprazole (PriLOSEC) 20 mg DAILY PO 01/18/21 09:00 01/17/21 16:29 DC Omeprazole (PriLOSEC) 20 mg DAILY PO 01/18/21 09:00 01/25/21 09:03 Ondansetron HCl (Zofran) 4 mg Q6HP PRN PO NAUSEA 01/17/21 14:10 Oxycodone/ Acetaminophen (Percocet 5mg/ 325mg Tablet) 1 tab Q4HP PRN PO MODERATE PAIN (PS 5-7) 01/17/21 16:15 01/19/21 11:01 DC Oxycodone/ Acetaminophen (Percocet 5mg/ 325mg Tablet) 1 tab Q8HP PRN PO MODERATE PAIN (PS 5-7) 01/19/21 18:00 Cancel Polyethylene Glycol (Miralax) 1 pkt DAILY PO 01/17/21 09:00 01/21/21 12:19 DC 01/17/21 16:54 Potassium Chloride (Micro-K Extencaps) 10 meq DAILY PO 01/18/21 09:00 01/24/21 07:37 DC 01/23/21 08:26 Potassium Chloride (Micro-K Extencaps) 20 meq DAILY PO 01/24/21 09:00 01/25/21 09:05 Psyllium Hydrophilic Mucilloid (Metamucil) 1 pkt DAILY PO 01/22/21 09:00 01/25/21 09:05 Salmeterol Xinafoate/ Fluticasone (Advair Hfa / ) 2 puff RBID INH 01/17/21 20:00 01/26/21 07:10 Senna/Docusate Sodium (Senokot S) 1 tab BID PO 01/17/21 21:00 01/21/21 12:19 DC 01/20/21 21:12 Simethicone (Mylicon) 80 mg QIDP PRN PO BLOATING 01/17/21 14:10 Warfarin Sodium (Coumadin) 2.5 mg DAILY@17 PO 01/18/21 17:00 01/22/21 17:29 DC 01/22/21 16:53 Warfarin Sodium (Coumadin) 5 mg DAILY@17 PO 01/23/21 17:00 01/25/21 17:52 AYANNA MCCONNELL MD Jan 26, 2021 08:18
[2021-01-26] MEDS: METAMUCIL (PSYLLIUM) PACKET PO SCH (08:51)
[2021-01-26] MEDS: OMEPRAZOLE 20 MG CAP PO SCH (08:51)
[2021-01-26] MEDS: CLOPIDOGREL 75 MG TAB PO SCH (08:51)
[2021-01-26] MEDS: POTASSIUM CHLORIDE 10MEQ SR TABLET PO SCH (08:51)
[2021-01-26] MEDS: FUROSEMIDE 20 MG TAB PO SCH (08:52)
[2021-01-26] MEDS: atenoloL 25 MG TAB PO SCH (08:55)
[2021-01-26] MEDS: BRIMONIDINE 0.1% OPHTH SOLN 5 ML OU SCH (08:58)
[2021-01-26 12:42] LABS: BLOOD UREA NITROGEN 14 MG/DL (7-18); CALCIUM LEVEL 9.5 MG/DL (8.8-10.2); CARBON DIOXIDE LEVEL 25 MEQ/L (21-32); CHLORIDE LEVEL 109 MEQ/L (98-107); CREATININE FOR GFR 1.01 MG/DL (0.70-1.30); GLOMERULAR FILTRATION RATE > 60.0 (>35); GLUCOSE, FASTING 105 MG/DL (70-100); POTASSIUM SERUM 3.5 MEQ/L (3.5-5.1); SODIUM LEVEL 143 MEQ/L (136-145)
[2021-01-26 14:00] VITALS: BP 138/82
[2021-01-26] MEDS: WARFARIN SOD 5MG TAB PO SCH (17:13)
[2021-01-26] MEDS: LORazepam 0.5 MG TAB PO SCH (17:13)
[2021-01-26 20:00] VITALS: BP 136/74
[2021-01-26] MEDS: LATANOPROST 0.005% OPHTH SOLN 2.5 ML OU SCH (21:05)
[2021-01-26] MEDS: ATORVASTATIN 20 MG TAB PO SCH (21:05)
[2021-01-27] MEDS: LEVOTHYROXINE 75MCG TABLET (0.075MG) PO SCH (05:47)
[2021-01-27] MEDS: atenoloL 25 MG TAB PO SCH (05:47)
[2021-01-27 06:00] VITALS: BP 139/66
[2021-01-27 07:05] LABS: INR 2.6; PROTHROMBIN TIME 28.2 SECONDS (12.7-14.5)
[2021-01-27] MEDS: ADVAIR HFA 115/21MCG INHALER INH SCH ×2 (07:23→20:03)
[2021-01-27] MEDS: POTASSIUM CHLORIDE 10MEQ SR TABLET PO SCH (08:28)
[2021-01-27] MEDS: OMEPRAZOLE 20 MG CAP PO SCH (08:28)
[2021-01-27] MEDS: FUROSEMIDE 20 MG TAB PO SCH (08:28)
[2021-01-27] MEDS: METAMUCIL (PSYLLIUM) PACKET PO SCH (08:28)
[2021-01-27] MEDS: BRIMONIDINE 0.1% OPHTH SOLN 5 ML OU SCH (08:28)
[2021-01-27] MEDS: CLOPIDOGREL 75 MG TAB PO SCH (08:28)
[2021-01-27 14:00] VITALS: BP 130/74
[2021-01-27] MEDS: WARFARIN SOD 2.5MG TAB PO SCH (17:04)
[2021-01-27] MEDS: LORazepam 0.5 MG TAB PO SCH (17:04)
[2021-01-27 20:00] VITALS: BP 131/79
[2021-01-27] MEDS: LATANOPROST 0.005% OPHTH SOLN 2.5 ML OU SCH (21:07)
[2021-01-27] MEDS: ATORVASTATIN 20 MG TAB PO SCH (21:07)
[2021-01-28] MEDS: LEVOTHYROXINE 75MCG TABLET (0.075MG) PO SCH (05:47)
[2021-01-28] MEDS: atenoloL 25 MG TAB PO SCH (05:48)
[2021-01-28 06:00] VITALS: BP 151/94
[2021-01-28] MEDS: ADVAIR HFA 115/21MCG INHALER INH SCH ×3 (07:19→20:26)
[2021-01-28] MEDS: METAMUCIL (PSYLLIUM) PACKET PO SCH (07:21)
[2021-01-28] MEDS: OMEPRAZOLE 20 MG CAP PO SCH (07:21)
[2021-01-28] MEDS: LATANOPROST 0.005% OPHTH SOLN 2.5 ML OU SCH (07:21)
[2021-01-28] MEDS: BRIMONIDINE 0.1% OPHTH SOLN 5 ML OU SCH (07:21)
[2021-01-28] MEDS: FUROSEMIDE 20 MG TAB PO SCH (07:21)
[2021-01-28] MEDS: CLOPIDOGREL 75 MG TAB PO SCH (07:21)
[2021-01-28] MEDS: POTASSIUM CHLORIDE 10MEQ SR TABLET PO SCH (07:21)
[2021-01-28 10:09] LABS: INR 2.82
[2021-01-28] MEDS: ACETAMINOPHEN TAB 650MG DOSE (2X325MG) PO PRN (13:24)
[2021-01-28 14:00] VITALS: BP 155/66
[2021-01-28] MEDS: LORazepam 0.5 MG TAB PO SCH (16:35)
[2021-01-28] MEDS: WARFARIN SOD 2.5MG TAB PO SCH (16:36)
[2021-01-28 20:00] VITALS: BP 154/73
[2021-01-28] MEDS: ATORVASTATIN 20 MG TAB PO SCH (20:39)
[2021-01-29] MEDS: LEVOTHYROXINE 75MCG TABLET (0.075MG) PO SCH (05:51)
[2021-01-29] MEDS: atenoloL 25 MG TAB PO SCH (05:53)
[2021-01-29 06:00] VITALS: BP 161/76
[2021-01-29 07:15] LABS: INR 3.78; PROTHROMBIN TIME 37.6 SECONDS (12.7-14.5)
[2021-01-29] MEDS: ADVAIR HFA 115/21MCG INHALER INH SCH ×2 (07:21→20:30)
[2021-01-29] MEDS: OMEPRAZOLE 20 MG CAP PO SCH (08:40)
[2021-01-29] MEDS: METAMUCIL (PSYLLIUM) PACKET PO SCH (08:40)
[2021-01-29] MEDS: POTASSIUM CHLORIDE 10MEQ SR TABLET PO SCH (08:41)
[2021-01-29] MEDS: FUROSEMIDE 20 MG TAB PO SCH (08:41)
[2021-01-29] MEDS: CLOPIDOGREL 75 MG TAB PO SCH (08:41)
[2021-01-29] MEDS: BRIMONIDINE 0.1% OPHTH SOLN 5 ML OU SCH (08:42)
[2021-01-29] MEDS: ALPRAZolam 0.25 MG TAB PO PRN (12:03)
[2021-01-29] MEDS: ACETAMINOPHEN TAB 650MG DOSE (2X325MG) PO PRN (12:04)
[2021-01-29 14:00] VITALS: BP 100/62
[2021-01-29] MEDS: LORazepam 0.5 MG TAB PO SCH (17:34)
--- NOTE | 2021-01-29 17:56 | IPNPDOC ---
Subjective Date Seen The patient was seen on 01/29/21. Subjective Chief Complaint/HPI Mr. Atwood is an 85-year-old male who was recently admitted for SBO, who now is in ARU for rehab. Patient was seen this afternoon. He denied any chest pain or dyspnea. He tells me he eats little by litter. His nurse noted that patient was having soft stool. Patient's BM regimen was held. Otherwise, he was anxious about his because she was having labs done. Objective Physical Examination General Exam: Positive: Alert, Cooperative Eye Exam: Positive: EOMI; Negative: Sclera icteric ENT Exam: Positive: Atraumatic Neck Exam: Positive: Supple Heart Exam: Positive: Rate Normal, Regular Rhythm Abdomen Exam: Positive: Normal bowel sounds, Soft; Negative: Tenderness Extremity Exam: Negative: Edema Neuro Exam: Positive: Normal Speech Psych Exam: Positive: Anxiety Assessment /Plan Plan/VTE VTE Prophylaxis Ordered?: Yes Plan 1. Debility -In ARU for rehab 2. Hypothyroidism -Continue levothyroxine 3. Hypertension -Continue atenolol 4. Hyperlipidemia -Continue atorvastatin 5. Glaucoma -Continue Brimonidine and latanoprost 6. GERD -Continue omeprazole 7. penitentiary use of 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 -Indication for warfarin was unclear, family reports it is taken after a femoral artery injury many years ago, and was recommended by vascular surgery to continue with warfarin -Patient was supratherupeutic today. Will hold today's dose and recheck INR tomorrow 8. DVT ppx -On warfarin Disposition: Per ARU VS, I&O, 24H, [facility] Vital Signs/I&O Vital Signs Date Time Temp Pulse Resp B/P (MAP) Pulse Ox O2 Delivery O2 Flow Rate FiO2 01/29/21 14:00 98.7 80 26 100/62 (75) 98 Room Air I&O- Last 24 Hours up to 6 AM 01/29/21 06:00 Intake Total 720 ml Balance 720 ml Laboratory Data 24H LABS Laboratory Tests 2 01/29/21 06:47: Prothrombin Time 37.6H, Prothromb Time International Ratio 3.78 Microbiology Microbiology 01/24/21 Urine Culture - Final, Complete ANGELES LOPEZ DO Jan 29, 2021 17:56
[2021-01-29] MEDS: ATORVASTATIN 20 MG TAB PO SCH (20:46)
[2021-01-29] MEDS: LATANOPROST 0.005% OPHTH SOLN 2.5 ML OU SCH (20:47)
[2021-01-29 21:00] VITALS: BP 138/78
[2021-01-30 06:00] VITALS: BP 133/79
[2021-01-30] MEDS: LEVOTHYROXINE 75MCG TABLET (0.075MG) PO SCH (06:10)
[2021-01-30] MEDS: atenoloL 25 MG TAB PO SCH (06:12)
[2021-01-30] MEDS: ADVAIR HFA 115/21MCG INHALER INH SCH ×2 (07:30→20:00)
[2021-01-30] MEDS: FUROSEMIDE 20 MG TAB PO SCH (08:37)
[2021-01-30] MEDS: METAMUCIL (PSYLLIUM) PACKET PO SCH (08:37)
[2021-01-30] MEDS: CLOPIDOGREL 75 MG TAB PO SCH (08:37)
[2021-01-30] MEDS: BRIMONIDINE 0.1% OPHTH SOLN 5 ML OU SCH (08:37)
[2021-01-30] MEDS: OMEPRAZOLE 20 MG CAP PO SCH (08:37)
[2021-01-30] MEDS: POTASSIUM CHLORIDE 10MEQ SR TABLET PO SCH (08:37)
[2021-01-30 09:29] LABS: BASO # 0.1 10^3/uL (0.0-0.2); BASO % 0.6 % (0.0-1.0); EOS # 0.3 10^3/uL (0.0-0.5); EOS % 1.9 % (0.0-3.0); HEMATOCRIT 40.6 % (42.0-52.0); HEMOGLOBIN 12.6 g/dl (13.5-17.5); LYMPH # 1.2 10^3/uL (1.5-5.0); LYMPH % 8.2 % (24.0-44.0); MEAN CORPUSCULAR HEMOGLOBIN 26.1 pg (27.0-33.0); MEAN CORPUSCULAR VOLUME 84.2 fl (80.0-96.0); MONO # 1.2 10^3/uL (0.0-0.8); MONO % 7.8 % (2.0-8.0); NEUTROPHILS # 12.3 10^3/uL (1.5-8.5); NEUTROPHILS % 81.3 % (36.0-66.0); PLATELET COUNT, AUTOMATED 274 10^3/uL (150-450); RED BLOOD COUNT 4.82 10^6/uL (4.30-6.10); WHITE BLOOD COUNT 15.1 10^3/uL (4.0-10.0)
[2021-01-30 09:41] LABS: INR 3.82; PROTHROMBIN TIME 37.8 SECONDS (12.7-14.5)
[2021-01-30 09:49] LABS: BLOOD UREA NITROGEN 17 MG/DL (7-18); CALCIUM LEVEL 9.1 MG/DL (8.8-10.2); CARBON DIOXIDE LEVEL 24 MEQ/L (21-32); CHLORIDE LEVEL 109 MEQ/L (98-107); GLOMERULAR FILTRATION RATE > 60.0 (>35); GLUCOSE, FASTING 94 MG/DL (70-100); POTASSIUM SERUM 3.4 MEQ/L (3.5-5.1); SODIUM LEVEL 142 MEQ/L (136-145)
[2021-01-30] MEDS ORDERED: POTASSIUM CHLORIDE 10MEQ SR TABLET PO ONE (10:25)
--- NOTE | 2021-01-30 10:33 | IPNPDOC ---
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 He was noted to have difficulty articulating his thoughts and was pleasantly confused and unable to state where he was. REVIEW OF SYSTEMS: The following is a completed review of systems and has been reviewed. Review of systems otherwise unremarkable. PAIN: abdominal pain resolved. EYES: No recent vision changes. EARS, NOSE, & THROAT: No throat pain, or dysphagia, or rhinorrhea. CARDIOVASCULAR: Denies chest pain or palpitations. PULMONARY: denies shortness of breath or cough GASTROINTESTINAL: denies diarrhea/constipation GENITOURINARY: . denies dysuria MUSCULOSKELETAL: . Multiple thoracic Compression fractures stable NEUROLOGICAL:.altered mentation, fluctuates HEMATOLOGICAL: no bleeding or bruising SKIN: .healing laparoscopy ports PSYCHIATRIC: Anxious All other review of systems found to be negative. ALLERGIES: See Below MEDICATIONS: Reviewed, see below. OBJECTIVE: VITAL SIGNS: Please see below. GENERAL: Pleasant and cooperative. No acute distress. HEENT: Extraocular movements intact. Clear conjunctiva , poor dentition, Full cervical range of motion without tenderness or spasm. CARDIOVASCULAR: Regular rate and rhythm. I/ murmur, occasional extra beat, pacemaker present L pectoral region. LUNGS: Clear to auscultation bilaterally, raspy breath sounds. No wheezes. No rhonchi. ABDOMEN: Soft, no tenderness, healed laparoscopic port sites right upper and lateral region, less distended. Positive normal active bowel sounds. NEUROLOGICAL: Cranial nerves II through XII grossly intact. Sensation grossly intact. 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 No peripheral edema, OA changes SKIN: .Healing Laparoscopy sites, better turgor. ASSESSMENT AND PLAN: DIAGNOSES: Status post small bowel obstruction with repair of incarcerated umbilical hernia 01.16.2021 Delirium Leukocytosis. Anemia Sepsis. Multiple Compression fracture thoracic spine. CHF Dependent edema. hematoma. Head Pleural effusion Emphysema. Status post UTI [place] high. Hypothyroidism. Hypertension. Hyperlipidemia. Hypokalemia Glaucoma. GERD. Vascular abnormality. 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 Patient has adjusted well, but is noted by team and with input from spouse that he has had worsening cognitive decline in need of further assessment. PLAN: 1. Rehab- PT/OT advance gait and ADls, strengthen/stretch/maintain ROM all 4 limbs. He has weaned off pain medication and we shall continue with therapy interventions to optimize possible capacity to participate consistently and safely with strong day to day carryover. Still fluctuates. Will check NH4 level as another approach to assess vacillating mental status. . 2. Medical conditions -HTN Atenolol, Lasix, dietary addition, monitor -HLD- c/u statins 3. Resp - continue incentive spirometry, monitor for infection, clear, off abx 4. . -will monitor UA since abx dcd and some deterioration in mentation, initial UA appeared infectious, however Ucx did not grow anything, given ongoing confusion in therapy and leukocytosis with re-order UA/Ucx to look for UTI 5. GI ppx-adjusted laxatives and discontinued. Magnesium. He was having multiple loose incontinent stools. no incontinent episodes x 2 days, but having regular BM now. Continue, slowly progressed soft diet to regular diet this week, added fiber, tolerating with good fluid intake. 6. Skin-Usual nursing protocols to maintain skin integrity 7. Neuro-AMS SL augmenting cog eval and reorientation, safety assessments 8. Hypokalemia- will give 1x dose of 40meq potassium and increase daily dosing to 40meq, recheck BMP tomorrow 9. Vasc- on couamdin for hx of femoral artery occlusion, currently supra- therapeutic, warfarin on hold DISPOSITION Home with Allergies Coded Allergies: diphenhydramine (Verified Allergy, Severe, SWELLING, 01/09/21) FISH (Verified Allergy, Unknown, 06/14/08) POULTRY (Verified Allergy, Unknown, DARK MEAT, 06/14/08) bacitracin (Verified Allergy, Unknown, 01/09/21) dorzolamide (Verified Allergy, Unknown, 01/09/21) neomycin (Verified Allergy, Unknown, 01/09/21) polymyxin B (Verified Allergy, Unknown, 01/09/21) shellfish derived (Verified Allergy, Unknown, 01/16/21) timolol (Verified Allergy, Unknown, 01/09/21) valsartan (Verified Allergy, Unknown, 01/09/21) Vital Signs Vital Signs Date Time Temp Pulse Resp B/P (MAP) Pulse Ox O2 Delivery O2 Flow Rate FiO2 01/30/21 06:12 88 133/79 01/30/21 06:00 98.8 18 97 Room Air Laboratory Data CBC/BMP Laboratory Tests 01/30/21 09:08 Labs 24H Laboratory Tests 2 01/30/21 09:08: Immature Granulocyte % (Auto) 0.2, Neutrophils (%) (Auto) 81.3H, Lymphocytes (%) (Auto) 8.2L, Monocytes (%) (Auto) 7.8, Eosinophils (%) (Auto) 1.9, Basophils (%) (Auto) 0.6, Neutrophils # (Auto) 12.3H, Lymphocytes # (Auto) 1.2L, Monocytes # (Auto) 1.2H, Eosinophils # (Auto) 0.3, Basophils # (Auto) 0.1, Nucleated Red Blood Cells % (auto) 0.0, Prothrombin Time 37.8H, Prothromb Time International Ratio 3.82, Anion Gap 9, Glomerular Filtration Rate > 60.0, Calcium Level 9.1 Microbiology Microbiology 01/24/21 Urine Culture - Final, Complete Current Medications Current Medications Current Medications Medications (Trade) Dose Ordered Sig/Dion Route PRN Reason Start Time Stop Time Status Last Admin Dose Admin Acetaminophen (Tylenol Tab) 650 mg DAILYPRN PRN PO PAIN LEVEL 1-4 01/17/21 16:15 01/17/21 16:29 DC Acetaminophen (Tylenol Tab) 650 mg Q4HP PRN PO MILD PAIN (PS 1-4) 01/17/21 14:10 01/29/21 12:04 Albuterol Sulfate (Proventil, Ventolin Hfa) 2 puff QID PRN INH SOB/WHEEZING 01/17/21 16:15 Alprazolam (Xanax) 0.25 mg BID PRN PO anxiety 01/17/21 16:15 01/29/21 12:03 Amoxicillin/ Clavulanate Potassium (Augmentin) 875 mg BID PO 01/17/21 21:00 01/22/21 23:59 DC 01/22/21 20:23 Atenolol (Tenormin) 25 mg DAILY PO 01/18/21 09:00 01/26/21 08:10 DC 01/25/21 09:04 Atenolol (Tenormin) 25 mg DAILY@0600 PO 01/26/21 06:00 01/30/21 06:12 Atorvastatin Calcium (Lipitor) 40 mg QHS PO 01/17/21 21:00 01/29/21 20:46 Brimonidine Tartrate (Alphagan P 0.1%) 1 drop QAM OU 01/18/21 09:00 01/30/21 08:37 Clopidogrel Bisulfate (PLAVix) 75 mg DAILY PO 01/18/21 09:00 01/30/21 08:37 Furosemide (Lasix) 20 mg DAILY PO 01/18/21 09:00 01/30/21 08:37 Home Med (Home Med List Complete!) ASDIRECTED XX 01/17/21 14:55 01/17/21 15:42 DC Latanoprost (Xalatan 0.005% Op Soln) 1 drop QPM OU 01/17/21 21:00 01/29/21 20:47 Levothyroxine Sodium (Synthroid) 75 mcg DAILY@0600 PO 01/18/21 06:00 01/30/21 06:10 Lorazepam (Ativan) 0.5 mg DAILY@1700 PO 01/19/21 17:00 01/29/21 17:34 Magnesium Oxide (Mag-Ox) 400 mg DAILY PO 01/18/21 09:00 01/18/21 10:08 DC 01/18/21 09:50 Miscellaneous (Unresolved Clarification Entry) SEE LABEL COMMENTS DAILY XX 01/24/21 09:00 01/24/21 13:58 DC Omeprazole (PriLOSEC) 20 mg DAILY PO 01/18/21 09:00 01/17/21 16:29 DC Omeprazole (PriLOSEC) 20 mg DAILY PO 01/18/21 09:00 01/30/21 08:37 Ondansetron HCl (Zofran) 4 mg Q6HP PRN PO NAUSEA 01/17/21 14:10 Oxycodone/ Acetaminophen (Percocet 5mg/ 325mg Tablet) 1 tab Q4HP PRN PO MODERATE PAIN (PS 5-7) 01/17/21 16:15 01/19/21 11:01 DC Oxycodone/ Acetaminophen (Percocet 5mg/ 325mg Tablet) 1 tab Q8HP PRN PO MODERATE PAIN (PS 5-7) 01/19/21 18:00 Cancel Polyethylene Glycol (Miralax) 1 pkt DAILY PO 01/17/21 09:00 01/21/21 12:19 DC 01/17/21 16:54 Potassium Chloride (Micro-K Extencaps) 10 meq DAILY PO 01/18/21 09:00 01/24/21 07:37 DC 01/23/21 08:26 Potassium Chloride (Micro-K Extencaps) 20 meq DAILY PO 01/24/21 09:00 01/30/21 10:26 DC 01/30/21 08:37 Potassium Chloride (Micro-K Extencaps) 40 meq DAILY PO 01/31/21 09:00 Psyllium Hydrophilic Mucilloid (Metamucil) 1 pkt DAILY PO 01/22/21 09:00 01/30/21 08:37 Salmeterol Xinafoate/ Fluticasone (Advair Hfa 115/ ) 2 puff RBID INH 01/17/21 20:00 01/30/21 07:30 Senna/Docusate Sodium (Senokot S) 1 tab BID PO 01/17/21 21:00 01/21/21 12:19 DC 01/20/21 21:12 Simethicone (Mylicon) 80 mg QIDP PRN PO BLOATING 01/17/21 14:10 Warfarin Sodium (Coumadin) 2.5 mg DAILY@17 PO 01/18/21 17:00 01/22/21 17:29 DC 01/22/21 16:53 Warfarin Sodium (Coumadin) 2.5 mg DAILY@17 PO 01/27/21 17:00 01/30/21 10:25 DC 01/28/21 16:36 Warfarin Sodium (Coumadin) 5 mg DAILY@17 PO 01/23/21 17:00 01/27/21 11:43 DC 01/26/21 17:13 IAN BARAHONA MD Jan 30, 2021 10:33
[2021-01-30 14:00] VITALS: BP 146/91
[2021-01-30 15:00] VITALS: BP 146/91
[2021-01-30 15:45] VITALS: BP 138/82
[2021-01-30] MEDS ORDERED: LORazepam 0.5 MG TAB PO PRN (18:45)
[2021-01-30 20:00] VITALS: BP 122/68
[2021-01-30] MEDS: ATORVASTATIN 20 MG TAB PO SCH (21:53)
[2021-01-30] MEDS: LATANOPROST 0.005% OPHTH SOLN 2.5 ML OU SCH (21:54)
[2021-01-31] MEDS: LEVOTHYROXINE 75MCG TABLET (0.075MG) PO SCH (05:06)
[2021-01-31] MEDS: atenoloL 25 MG TAB PO SCH (05:07)
[2021-01-31 06:00] VITALS: BP 140/72
[2021-01-31 07:17] LABS: BLOOD UREA NITROGEN 17 MG/DL (7-18); CALCIUM LEVEL 8.7 MG/DL (8.8-10.2); CARBON DIOXIDE LEVEL 25 MEQ/L (21-32); CHLORIDE LEVEL 113 MEQ/L (98-107); GLOMERULAR FILTRATION RATE > 60.0 (>35); GLUCOSE, FASTING 86 MG/DL (70-100); POTASSIUM SERUM 3.9 MEQ/L (3.5-5.1); SODIUM LEVEL 143 MEQ/L (136-145)
[2021-01-31 07:47] LABS: INR 3.68; PROTHROMBIN TIME 36.7 SECONDS (12.7-14.5)
[2021-01-31] MEDS: ADVAIR HFA 115/21MCG INHALER INH SCH ×2 (08:00→20:00)
[2021-01-31] MEDS: POTASSIUM CHLORIDE 10MEQ SR TABLET PO SCH (08:41)
[2021-01-31] MEDS: CLOPIDOGREL 75 MG TAB PO SCH (08:41)
[2021-01-31] MEDS: FUROSEMIDE 20 MG TAB PO SCH (08:41)
[2021-01-31] MEDS: BRIMONIDINE 0.1% OPHTH SOLN 5 ML OU SCH (08:42)
[2021-01-31] MEDS: METAMUCIL (PSYLLIUM) PACKET PO SCH (08:42)
[2021-01-31] MEDS: OMEPRAZOLE 20 MG CAP PO SCH (08:42)
[2021-01-31] MEDS ORDERED: LevoFLOXacin 500 MG TABLET PO ONE (10:05)
[2021-01-31 10:19] LABS: BASO # 0.1 10^3/uL (0.0-0.2); BASO % 0.8 % (0.0-1.0); EOS # 0.4 10^3/uL (0.0-0.5); HEMATOCRIT 36.4 % (42.0-52.0); HEMOGLOBIN 11.3 g/dl (13.5-17.5); LYMPH % 11.1 % (24.0-44.0); MEAN CORPUSCULAR HEMOGLOBIN 26.3 pg (27.0-33.0); MEAN CORPUSCULAR VOLUME 84.8 fl (80.0-96.0); MONO % 10.9 % (2.0-8.0); NEUTROPHILS # 6.7 10^3/uL (1.5-8.5); PLATELET COUNT, AUTOMATED 252 10^3/uL (150-450); RED BLOOD COUNT 4.29 10^6/uL (4.30-6.10); WHITE BLOOD COUNT 9.1 10^3/uL (4.0-10.0)
[2021-01-31] MEDS: LACTOBACILLUS ACIDOPHILUS CAP (BACID) PO SCH ×3 (11:43→20:34)
[2021-01-31] MEDS: NYSTATIN 100,000 UNITS/GM TOPICAL PWD 15 GM TOP SCH ×2 (11:43→20:35)
[2021-01-31 14:00] VITALS: BP 147/80
[2021-01-31 20:00] VITALS: BP 129/67
[2021-01-31] MEDS: ATORVASTATIN 20 MG TAB PO SCH (20:34)
[2021-01-31] MEDS: LATANOPROST 0.005% OPHTH SOLN 2.5 ML OU SCH (20:35)
[2021-02-01] MEDS: LEVOTHYROXINE 75MCG TABLET (0.075MG) PO SCH (05:07)
[2021-02-01] MEDS: atenoloL 25 MG TAB PO SCH (05:07)
[2021-02-01 06:00] VITALS: BP 148/70
[2021-02-01] MEDS: CLOPIDOGREL 75 MG TAB PO SCH (07:52)
[2021-02-01] MEDS: ALPRAZolam 0.25 MG TAB PO PRN (07:52)
[2021-02-01] MEDS: OMEPRAZOLE 20 MG CAP PO SCH (07:52)
[2021-02-01] MEDS: FUROSEMIDE 20 MG TAB PO SCH (07:52)
[2021-02-01] MEDS: METAMUCIL (PSYLLIUM) PACKET PO SCH (07:52)
[2021-02-01] MEDS: LACTOBACILLUS ACIDOPHILUS CAP (BACID) PO SCH ×4 (07:53→20:42)
[2021-02-01] MEDS: ADVAIR HFA 115/21MCG INHALER INH SCH ×2 (08:00→21:10)
[2021-02-01] MEDS: POTASSIUM CHLORIDE 10MEQ SR TABLET PO SCH (08:26)
[2021-02-01] MEDS: BRIMONIDINE 0.1% OPHTH SOLN 5 ML OU SCH (08:27)
[2021-02-01] MEDS: NYSTATIN 100,000 UNITS/GM TOPICAL PWD 15 GM TOP SCH ×2 (08:27→20:42)
[2021-02-01 09:57] LABS: INR 2.37; PROTHROMBIN TIME 26.3 SECONDS (12.7-14.5)
[2021-02-01 14:00] VITALS: BP 136/73
[2021-02-01] MEDS: WARFARIN SOD 2MG TAB PO SCH (17:35)
[2021-02-01 20:00] VITALS: BP 129/66
[2021-02-01] MEDS: LATANOPROST 0.005% OPHTH SOLN 2.5 ML OU SCH (20:42)
[2021-02-01] MEDS: ATORVASTATIN 20 MG TAB PO SCH (20:42)
[2021-02-02] MEDS: LEVOTHYROXINE 75MCG TABLET (0.075MG) PO SCH (05:19)
[2021-02-02] MEDS: atenoloL 25 MG TAB PO SCH (05:19)
[2021-02-02 06:00] VITALS: BP 137/67
[2021-02-02] MEDS ORDERED: LevoFLOXacin 250 MG TABLET PO SCH (06:00)
[2021-02-02] MEDS: ADVAIR HFA 115/21MCG INHALER INH SCH ×2 (07:52→20:40)
[2021-02-02] MEDS: POTASSIUM CHLORIDE 10MEQ SR TABLET PO SCH (09:17)
[2021-02-02] MEDS: CLOPIDOGREL 75 MG TAB PO SCH (09:17)
[2021-02-02] MEDS: LACTOBACILLUS ACIDOPHILUS CAP (BACID) PO SCH ×4 (09:17→20:47)
[2021-02-02] MEDS: FUROSEMIDE 20 MG TAB PO SCH (09:17)
[2021-02-02] MEDS: METAMUCIL (PSYLLIUM) PACKET PO SCH (09:17)
[2021-02-02] MEDS: OMEPRAZOLE 20 MG CAP PO SCH (09:17)
[2021-02-02] MEDS: NYSTATIN 100,000 UNITS/GM TOPICAL PWD 15 GM TOP SCH ×2 (09:18→20:48)
[2021-02-02] MEDS: BRIMONIDINE 0.1% OPHTH SOLN 5 ML OU SCH (09:18)
--- NOTE | 2021-02-02 11:31 | IPNPDOC ---
PM&R Progress Note DATE OF SERVICE: Jan 31, 2021 [facility] Progress Note Subjective: Patient seen in is room eating lunch stating he is moving his bowel ok, has no discomfort and does not mind the soft diet. REVIEW OF SYSTEMS: The following is a completed review of systems and has been reviewed. Review of systems otherwise unremarkable. PAIN: abdominal pain resolved. EYES: No recent vision changes. EARS, NOSE, & THROAT: No throat pain, or dysphagia, or rhinorrhea. CARDIOVASCULAR: Denies chest pain or palpitations. PULMONARY: denies shortness of breath or cough GASTROINTESTINAL: denies diarrhea/constipation GENITOURINARY: . denies dysuria MUSCULOSKELETAL: . Multiple thoracic Compression fractures stable NEUROLOGICAL:.altered mentation, fluctuates HEMATOLOGICAL: no bleeding or bruising SKIN: .healing laparoscopy ports PSYCHIATRIC: Anxious All other review of systems found to be negative. ALLERGIES: See Below MEDICATIONS: Reviewed, see below. OBJECTIVE: VITAL SIGNS: Please see below. GENERAL: Pleasant and cooperative. No acute distress. HEENT: Extraocular movements intact. Clear conjunctiva , poor dentition, Full cervical range of motion without tenderness or spasm. CARDIOVASCULAR: Regular rate and rhythm. I/ murmur, occasional extra beat, pacemaker present L pectoral region. LUNGS: Clear to auscultation bilaterally, raspy breath sounds. No wheezes. No rhonchi. ABDOMEN: Soft, no tenderness, healed laparoscopic port sites right upper and la teral region, less distended. Positive normal active bowel sounds. NEUROLOGICAL: Cranial nerves II through XII grossly intact. Sensation grossly intact. EXTREMITIES: 5 /5 parts professional. No peripheral edema, OA changes SKIN: .Healing Laparoscopy sites, better turgor. ASSESSMENT AND PLAN: DIAGNOSES: Status post small bowel obstruction with repair of incarcerated umbilical hernia 01.16.2021 Delirium Leukocytosis. Anemia Sepsis. Multiple Compression fracture thoracic spine. CHF Dependent edema. hematoma. Head Pleural effusion Emphysema. Status post UTI AK high. Hypothyroidism. Hypertension. Hyperlipidemia. Hypokalemia Glaucoma. GERD. Vascular abnormality. 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 Patient has adjusted well, but is noted by team and with input from spouse that he has had worsening cognitive decline in need of further assessment. PLAN: 1. Rehab- PT/OT advance gait and ADls, strengthen/stretch/maintain ROM all 4 limbs. He has weaned off pain medication and we shall continue with therapy interventions to optimize possible capacity to participate consistently and safely with strong day to day carryover. Still fluctuates. Will check NH4 level as another approach to assess vacillating mental status. . 2. Medical conditions -HTN Atenolol, Lasix, dietary addition, monitor -HLD- c/u statins 3. Resp - continue incentive spirometry, monitor for infection, clear 4. . -will monitor UA since abx dcd and some deterioration in mentation, initial UA appeared infectious, however Ucx did not grow anything, given ongoing confusion in therapy and leukocytosis with repeat UA +LE will start Levaquin and f/u Ucx 5. GI ppx-adjusted laxatives and discontinued. Magnesium. He was having multiple loose incontinent stools. no incontinent episodes x 2 days, but having regular BM now. Continue, slowly progressed soft diet to regular diet this week, added fiber, tolerating with good fluid intake. 6. Skin-Usual nursing protocols to maintain skin integrity 7. Neuro-AMS SL augmenting cog eval and reorientation, safety assessments- patient is on Xanax daily for anxiety which may be contributing to cognitive deficits 8. Hypokalemia- resolved 9. Vasc- on couamdin for hx of femoral artery occlusion, currently supra- therapeutic, warfarin on hold DISPOSITION Home with vs SNF given is concerned she will not be able to care for him with her new diagnosis Allergies Coded Allergies: diphenhydramine (Verified Allergy, Severe, SWELLING, 01/09/21) FISH (Verified Allergy, Unknown, 06/14/08) POULTRY (Verified Allergy, Unknown, DARK MEAT, 06/14/08) bacitracin (Verified Allergy, Unknown, 01/09/21) dorzolamide (Verified Allergy, Unknown, 01/09/21) neomycin (Verified Allergy, Unknown, 01/09/21) polymyxin B (Verified Allergy, Unknown, 01/09/21) shellfish derived (Verified Allergy, Unknown, 01/16/21) timolol (Verified Allergy, Unknown, 01/09/21) valsartan (Verified Allergy, Unknown, 01/09/21) Vital Signs Vital Signs Date Time Temp Pulse Resp B/P (MAP) Pulse Ox O2 Delivery O2 Flow Rate FiO2 02/02/21 06:00 98.7 82 16 137/67 (90) 98 Room Air Laboratory Data CBC/BMP Labs 24H Laboratory Tests 2 02/02/21 11:17: Microbiology Microbiology 01/30/21 Urine Culture - Final, Complete 01/24/21 Urine Culture - Final, Complete Current Medications Current Medications Current Medications Medications (Trade) Dose Ordered Sig/Dion Route PRN Reason Start Time Stop Time Status Last Admin Dose Admin Acetaminophen (Tylenol Tab) 650 mg DAILYPRN PRN PO PAIN LEVEL 1-4 01/17/21 16:15 01/17/21 16:29 DC Acetaminophen (Tylenol Tab) 650 mg Q4HP PRN PO MILD PAIN (PS 1-4) 01/17/21 14:10 01/29/21 12:04 Albuterol Sulfate (Proventil, Ventolin Hfa) 2 puff QID PRN INH SOB/WHEEZING 01/17/21 16:15 Alprazolam (Xanax) 0.25 mg BID PRN PO anxiety 01/17/21 16:15 02/02/21 11:07 DC 02/01/21 07:52 Amoxicillin/ Clavulanate Potassium (Augmentin) 875 mg BID PO 01/17/21 21:00 01/22/21 23:59 DC 01/22/21 20:23 Atenolol (Tenormin) 25 mg DAILY PO 01/18/21 09:00 01/26/21 08:10 DC 01/25/21 09:04 Atenolol (Tenormin) 25 mg DAILY@0600 PO 01/26/21 06:00 02/02/21 05:19 Atorvastatin Calcium (Lipitor) 40 mg QHS PO 01/17/21 21:00 02/01/21 20:42 Brimonidine Tartrate (Alphagan P 0.1%) 1 drop QAM OU 01/18/21 09:00 02/02/21 09:18 Clopidogrel Bisulfate (PLAVix) 75 mg DAILY PO 01/18/21 09:00 02/02/21 09:17 Furosemide (Lasix) 20 mg DAILY PO 01/18/21 09:00 02/02/21 09:17 Home Med (Home Med List Complete!) ASDIRECTED XX 01/17/21 14:55 01/17/21 15:42 DC Lactobacillus Acidophilus (Bacid) 1 ea WMHS PO 01/31/21 12:30 02/02/21 09:17 Latanoprost (Xalatan 0.005% Op Soln) 1 drop QPM OU 01/17/21 21:00 02/01/21 20:42 Levofloxacin (Levaquin) 250 mg Q48H PO 02/02/21 06:00 02/01/21 11:02 DC Levothyroxine Sodium (Synthroid) 75 mcg DAILY@0600 PO 01/18/21 06:00 02/02/21 05:19 Lorazepam (Ativan) 0.25 mg DAILY@1700 PRN PO ANXIETY/AGITATION 01/31/21 17:00 Lorazepam (Ativan) 0.5 mg DAILY@1700 PO 01/19/21 17:00 01/30/21 18:47 DC 01/29/21 17:34 Lorazepam (Ativan) 0.5 mg DAILY@1700 PRN PO ANXIETY/AGITATION 01/30/21 18:45 01/31/21 10:06 DC Magnesium Oxide (Mag-Ox) 400 mg DAILY PO 01/18/21 09:00 01/18/21 10:08 DC 01/18/21 09:50 Miscellaneous (Unresolved Clarification Entry) SEE LABEL COMMENTS DAILY XX 01/24/21 09:00 01/24/21 13:58 DC Nystatin (Mycostatin Powder, Nystop) apply to groin BID TOP 01/31/21 09:00 02/02/21 09:18 Omeprazole (PriLOSEC) 20 mg DAILY PO 01/18/21 09:00 01/17/21 16:29 DC Omeprazole (PriLOSEC) 20 mg DAILY PO 01/18/21 09:00 02/02/21 09:17 Ondansetron HCl (Zofran) 4 mg Q6HP PRN PO NAUSEA 01/17/21 14:10 Oxycodone/ Acetaminophen (Percocet 5mg/ 325mg Tablet) 1 tab Q4HP PRN PO MODERATE PAIN (PS 5-7) 01/17/21 16:15 01/19/21 11:01 DC Oxycodone/ Acetaminophen (Percocet 5mg/ 325mg Tablet) 1 tab Q8HP PRN PO MODERATE PAIN (PS 5-7) 01/19/21 18:00 Cancel Polyethylene Glycol (Miralax) 1 pkt DAILY PO 01/17/21 09:00 01/21/21 12:19 DC 01/17/21 16:54 Potassium Chloride (Micro-K Extencaps) 10 meq DAILY PO 01/18/21 09:00 01/24/21 07:37 DC 01/23/21 08:26 Potassium Chloride (Micro-K Extencaps) 20 meq DAILY PO 01/24/21 09:00 01/30/21 10:26 DC 01/30/21 08:37 Potassium Chloride (Micro-K Extencaps) 40 meq DAILY PO 01/31/21 09:00 02/02/21 09:17 Psyllium Hydrophilic Mucilloid (Metamucil) 1 pkt DAILY PO 01/22/21 09:00 02/02/21 09:17 Quetiapine Fumarate (SEROquel) 12.5 mg BID PO 02/02/21 09:00 Salmeterol Xinafoate/ Fluticasone (Advair Hfa 115/ ) 2 puff RBID INH 01/17/21 20:00 02/02/21 07:52 Senna/Docusate Sodium (Senokot S) 1 tab BID PO 01/17/21 21:00 01/21/21 12:19 DC 01/20/21 21:12 Simethicone (Mylicon) 80 mg QIDP PRN PO BLOATING 01/17/21 14:10 Warfarin Sodium (Coumadin) 2 mg DAILY@17 PO 02/01/21 17:00 02/01/21 17:35 Warfarin Sodium (Coumadin) 2.5 mg DAILY@17 PO 01/18/21 17:00 01/22/21 17:29 DC 01/22/21 16:53 Warfarin Sodium (Coumadin) 2.5 mg DAILY@17 PO 01/27/21 17:00 01/30/21 10:25 DC 01/28/21 16:36 Warfarin Sodium (Coumadin) 5 mg DAILY@17 PO 01/23/21 17:00 01/27/21 11:43 DC 01/26/21 17:13 IAN BARAHONA MD Feb 02, 2021 11:31
[2021-02-02 11:32] LABS: BASO # 0.1 10^3/uL (0.0-0.2); EOS # 0.3 10^3/uL (0.0-0.5); HEMATOCRIT 38.9 % (42.0-52.0); LYMPH # 1.1 10^3/uL (1.5-5.0); MEAN CORPUSCULAR HEMOGLOBIN 25.9 pg (27.0-33.0); MEAN CORPUSCULAR HGB CONC 30.8 g/dl (32.0-36.5); MEAN CORPUSCULAR VOLUME 83.8 fl (80.0-96.0); MONO # 1.2 10^3/uL (0.0-0.8); MONO % 14.6 % (2.0-8.0); NEUTROPHILS # 5.3 10^3/uL (1.5-8.5); NEUTROPHILS % 66.1 % (36.0-66.0); PLATELET COUNT, AUTOMATED 311 10^3/uL (150-450); RED BLOOD COUNT 4.64 10^6/uL (4.30-6.10); WHITE BLOOD COUNT 7.9 10^3/uL (4.0-10.0)
--- NOTE | 2021-02-02 11:32 | IPNPDOC ---
PM&R Progress Note DATE OF SERVICE: Feb 02, 2021 [facility] Progress Note Subjective: Patient seen lying in bed stating he was having a good day. He denies having any visual hallucinations. REVIEW OF SYSTEMS: The following is a completed review of systems and has been reviewed. Review of systems otherwise unremarkable. PAIN: abdominal pain resolved. EYES: No recent vision changes. EARS, NOSE, & THROAT: No throat pain, or dysphagia, or rhinorrhea. CARDIOVASCULAR: Denies chest pain or palpitations. PULMONARY: denies shortness of breath or cough GASTROINTESTINAL: denies diarrhea/constipation GENITOURINARY: . denies dysuria MUSCULOSKELETAL: . Multiple thoracic Compression fractures stable NEUROLOGICAL:.altered mentation, fluctuates HEMATOLOGICAL: no bleeding or bruising SKIN: .healing laparoscopy ports PSYCHIATRIC: Anxious All other review of systems found to be negative. ALLERGIES: See Below MEDICATIONS: Reviewed, see below. OBJECTIVE: VITAL SIGNS: Please see below. GENERAL: Pleasant and cooperative. No acute distress. HEENT: Extraocular movements intact. Clear conjunctiva , poor dentition, Full cervical range of motion without tenderness or spasm. CARDIOVASCULAR: Regular rate and rhythm. I/ murmur, occasional extra beat, pacemaker present L pectoral region. LUNGS: Clear to auscultation bilaterally, raspy breath sounds. No wheezes. No rhonchi. ABDOMEN: Soft, no tenderness, healed laparoscopic port sites right upper and lateral region, non-distended. Positive normal active bowel sounds. NEUROLOGICAL: Cranial nerves II through XII grossly intact. Sensation grossly intact. 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 No peripheral edema, OA changes SKIN: .Healing Laparoscopy sites, better turgor. ASSESSMENT AND PLAN: DIAGNOSES: Status post small bowel obstruction with repair of incarcerated umbilical hernia 01.16.2021 Delirium Leukocytosis. Anemia Sepsis. Multiple Compression fracture thoracic spine. CHF Dependent edema. hematoma. Head Pleural effusion Emphysema. Status post UTI AK high. Hypothyroidism. Hypertension. Hyperlipidemia. Hypokalemia Glaucoma. GERD. Vascular abnormality. 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 ASSESSMENT: This is an 85 year-old man status post recent pacemaker and valve replacement 09/2020 and past medical history of CAD s/p stent, hypertension, hyperlipidemia, hypothyroidism, Barretts esophagus, diverticular disease, emphysema, GERD, umbilical hernia, osteoporosis with multiple thoracic compression fractures, who presents status post laparoscopic reduction of small bowel obstruction placement of mesh, IV antibiotics for UTI and pleural effusion, possible early pneumonia with dyspnea, and remote possibility of other pulmonic or systemic pathology from 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 Patient has adjusted well, but is noted by team and with input from spouse that he has had worsening cognitive decline in need of further assessment. PLAN: 1. Rehab- PT/OT advance gait and ADls, strengthen/stretch/maintain ROM all 4 limbs. He has weaned off pain medication and we shall continue with therapy interventions to optimize possible capacity to participate consistently and safely with strong day to day carryover. Still fluctuates. Will check NH4 level as another approach to assess vacillating mental status. . 2. Medical conditions -HTN Atenolol, Lasix, dietary addition, monitor -HLD- c/u statins 3. Resp - continue incentive spirometry, monitor for infection, clear 4. . -will monitor UA since abx dcd and some deterioration in mentation, initial UA appeared infectious, however Ucx did not grow anything, given ongoing confusion in therapy and leukocytosis with repeat UA +LE , started on Levaquin which has been d/c since f/u Ucx negative 5. GI ppx-adjusted laxatives and discontinued. Magnesium. He was having multiple loose incontinent stools. no incontinent episodes x 2 days, but having regular BM now. Continue, slowly progressed soft diet to regular diet this week, added fiber, tolerating with good fluid intake 6. Skin-Usual nursing protocols to maintain skin integrity 7. Neuro-AMS SL augmenting cog eval and reorientation, safety assessments- patient is on Ativan daily for anxiety which may be contributing to cognitive deficits, I will d/c this altogether and trial Seroquel instead in the event there is underlying Lewy Body dementia, therapy was concerned for possible cog- wheel rigidity in UE while in therapy 02-01-21 just after having received a doze of ativan, non noted on today's exam, will cont to monitor 8. Hypokalemia- resolved 9. Vasc- on couamdin for hx of femoral artery occlusion, currently supra- therapeutic, warfarin on hold DISPOSITION Home with vs SNF given is concerned she will not be able to care for him with her new diagnosis Allergies Coded Allergies: diphenhydramine (Verified Allergy, Severe, SWELLING, 01/09/21) FISH (Verified Allergy, Unknown, 06/14/08) POULTRY (Verified Allergy, Unknown, DARK MEAT, 06/14/08) bacitracin (Verified Allergy, Unknown, 01/09/21) dorzolamide (Verified Allergy, Unknown, 01/09/21) neomycin (Verified Allergy, Unknown, 01/09/21) polymyxin B (Verified Allergy, Unknown, 01/09/21) shellfish derived (Verified Allergy, Unknown, 01/16/21) timolol (Verified Allergy, Unknown, 01/09/21) valsartan (Verified Allergy, Unknown, 01/09/21) Vital Signs Vital Signs Date Time Temp Pulse Resp B/P (MAP) Pulse Ox O2 Delivery O2 Flow Rate FiO2 02/02/21 06:00 98.7 82 16 137/67 (90) 98 Room Air Laboratory Data CBC/BMP Labs 24H Laboratory Tests 2 02/02/21 11:17: Microbiology Microbiology 01/30/21 Urine Culture - Final, Complete 01/24/21 Urine Culture - Final, Complete Current Medications Current Medications Current Medications Medications (Trade) Dose Ordered Sig/Dion Route PRN Reason Start Time Stop Time Status Last Admin Dose Admin Acetaminophen (Tylenol Tab) 650 mg DAILYPRN PRN PO PAIN LEVEL 1-4 01/17/21 16:15 01/17/21 16:29 DC Acetaminophen (Tylenol Tab) 650 mg Q4HP PRN PO MILD PAIN (PS 1-4) 01/17/21 14:10 01/29/21 12:04 Albuterol Sulfate (Proventil, Ventolin Hfa) 2 puff QID PRN INH SOB/WHEEZING 01/17/21 16:15 Alprazolam (Xanax) 0.25 mg BID PRN PO anxiety 01/17/21 16:15 02/02/21 11:07 DC 02/01/21 07:52 Amoxicillin/ Clavulanate Potassium (Augmentin) 875 mg BID PO 01/17/21 21:00 01/22/21 23:59 DC 01/22/21 20:23 Atenolol (Tenormin) 25 mg DAILY PO 01/18/21 09:00 01/26/21 08:10 DC 01/25/21 09:04 Atenolol (Tenormin) 25 mg DAILY@0600 PO 01/26/21 06:00 02/02/21 05:19 Atorvastatin Calcium (Lipitor) 40 mg QHS PO 01/17/21 21:00 02/01/21 20:42 Brimonidine Tartrate (Alphagan P 0.1%) 1 drop QAM OU 01/18/21 09:00 02/02/21 09:18 Clopidogrel Bisulfate (PLAVix) 75 mg DAILY PO 01/18/21 09:00 02/02/21 09:17 Furosemide (Lasix) 20 mg DAILY PO 01/18/21 09:00 02/02/21 09:17 Home Med (Home Med List Complete!) ASDIRECTED XX 01/17/21 14:55 01/17/21 15:42 DC Lactobacillus Acidophilus (Bacid) 1 ea WMHS PO 01/31/21 12:30 02/02/21 09:17 Latanoprost (Xalatan 0.005% Op Soln) 1 drop QPM OU 01/17/21 21:00 02/01/21 20:42 Levofloxacin (Levaquin) 250 mg Q48H PO 02/02/21 06:00 02/01/21 11:02 DC Levothyroxine Sodium (Synthroid) 75 mcg DAILY@0600 PO 01/18/21 06:00 02/02/21 05:19 Lorazepam (Ativan) 0.25 mg DAILY@1700 PRN PO ANXIETY/AGITATION 01/31/21 17:00 Lorazepam (Ativan) 0.5 mg DAILY@1700 PO 01/19/21 17:00 01/30/21 18:47 DC 01/29/21 17:34 Lorazepam (Ativan) 0.5 mg DAILY@1700 PRN PO ANXIETY/AGITATION 01/30/21 18:45 01/31/21 10:06 DC Magnesium Oxide (Mag-Ox) 400 mg DAILY PO 01/18/21 09:00 01/18/21 10:08 DC 01/18/21 09:50 Miscellaneous (Unresolved Clarification Entry) SEE LABEL COMMENTS DAILY XX 01/24/21 09:00 01/24/21 13:58 DC Nystatin (Mycostatin Powder, Nystop) apply to groin BID TOP 01/31/21 09:00 02/02/21 09:18 Omeprazole (PriLOSEC) 20 mg DAILY PO 01/18/21 09:00 01/17/21 16:29 DC Omeprazole (PriLOSEC) 20 mg DAILY PO 01/18/21 09:00 02/02/21 09:17 Ondansetron HCl (Zofran) 4 mg Q6HP PRN PO NAUSEA 01/17/21 14:10 Oxycodone/ Acetaminophen (Percocet 5mg/ 325mg Tablet) 1 tab Q4HP PRN PO MODERATE PAIN (PS 5-7) 01/17/21 16:15 01/19/21 11:01 DC Oxycodone/ Acetaminophen (Percocet 5mg/ 325mg Tablet) 1 tab Q8HP PRN PO MODERATE PAIN (PS 5-7) 01/19/21 18:00 Cancel Polyethylene Glycol (Miralax) 1 pkt DAILY PO 01/17/21 09:00 01/21/21 12:19 DC 01/17/21 16:54 Potassium Chloride (Micro-K Extencaps) 10 meq DAILY PO 01/18/21 09:00 01/24/21 07:37 DC 01/23/21 08:26 Potassium Chloride (Micro-K Extencaps) 20 meq DAILY PO 01/24/21 09:00 01/30/21 10:26 DC 01/30/21 08:37 Potassium Chloride (Micro-K Extencaps) 40 meq DAILY PO 01/31/21 09:00 02/02/21 09:17 Psyllium Hydrophilic Mucilloid (Metamucil) 1 pkt DAILY PO 01/22/21 09:00 02/02/21 09:17 Quetiapine Fumarate (SEROquel) 12.5 mg BID PO 02/02/21 09:00 Salmeterol Xinafoate/ Fluticasone (Advair Hfa 115/ 21) 2 puff RBID INH 01/17/21 20:00 02/02/21 07:52 Senna/Docusate Sodium (Senokot S) 1 tab BID PO 01/17/21 21:00 01/21/21 12:19 DC 01/20/21 21:12 Simethicone (Mylicon) 80 mg QIDP PRN PO BLOATING 01/17/21 14:10 Warfarin Sodium (Coumadin) 2 mg DAILY@17 PO 02/01/21 17:00 02/01/21 17:35 Warfarin Sodium (Coumadin) 2.5 mg DAILY@17 PO 01/18/21 17:00 01/22/21 17:29 DC 01/22/21 16:53 Warfarin Sodium (Coumadin) 2.5 mg DAILY@17 PO 01/27/21 17:00 01/30/21 10:25 DC 01/28/21 16:36 Warfarin Sodium (Coumadin) 5 mg DAILY@17 PO 01/23/21 17:00 01/27/21 11:43 DC 01/26/21 17:13 IAN BARAHONA MD Feb 02, 2021 11:32
[2021-02-02] MEDS: QUEtiapine FUMARATE 12.5 MG HALF-TAB PO SCH ×2 (11:44→20:47)
[2021-02-02 11:58] LABS: CALCIUM LEVEL 9.2 MG/DL (8.8-10.2); CREATININE FOR GFR 1.3 MG/DL (0.70-1.30); POTASSIUM SERUM 3.9 MEQ/L (3.5-5.1)
[2021-02-02 12:00] LABS: INR 2.4; PROTHROMBIN TIME 26.5 SECONDS (12.7-14.5)
[2021-02-02 14:00] VITALS: BP 114/66
[2021-02-02] MEDS: WARFARIN SOD 2MG TAB PO SCH (17:15)
[2021-02-02] MEDS: LORazepam 0.5 MG TAB PO PRN (17:57)
[2021-02-02 19:55] VITALS: BP 124/69
[2021-02-02] MEDS: ATORVASTATIN 20 MG TAB PO SCH (20:47)
[2021-02-02] MEDS: LATANOPROST 0.005% OPHTH SOLN 2.5 ML OU SCH (20:48)
[2021-02-03 05:46] VITALS: BP 112/58
[2021-02-03] MEDS: atenoloL 25 MG TAB PO SCH (06:08)
[2021-02-03] MEDS: LEVOTHYROXINE 75MCG TABLET (0.075MG) PO SCH (06:08)
[2021-02-03 07:12] LABS: INR 2.03; PROTHROMBIN TIME 23.4 SECONDS (12.7-14.5)
[2021-02-03] MEDS: ADVAIR HFA 115/21MCG INHALER INH SCH ×2 (07:37→20:40)
[2021-02-03] MEDS: FUROSEMIDE 20 MG TAB PO SCH (08:05)
[2021-02-03] MEDS: POTASSIUM CHLORIDE 10MEQ SR TABLET PO SCH (08:05)
[2021-02-03] MEDS: OMEPRAZOLE 20 MG CAP PO SCH (08:05)
[2021-02-03] MEDS: LACTOBACILLUS ACIDOPHILUS CAP (BACID) PO SCH ×4 (08:05→20:50)
[2021-02-03] MEDS: QUEtiapine FUMARATE 12.5 MG HALF-TAB PO SCH ×2 (08:05→20:50)
[2021-02-03] MEDS: CLOPIDOGREL 75 MG TAB PO SCH (08:05)
[2021-02-03] MEDS: BRIMONIDINE 0.1% OPHTH SOLN 5 ML OU SCH (08:06)
[2021-02-03] MEDS: NYSTATIN 100,000 UNITS/GM TOPICAL PWD 15 GM TOP SCH ×2 (08:06→20:50)
[2021-02-03] MEDS: METAMUCIL (PSYLLIUM) PACKET PO SCH (08:06)
[2021-02-03 14:00] VITALS: BP 126/72
[2021-02-03] MEDS: WARFARIN SOD 2MG TAB PO SCH (16:11)
[2021-02-03] MEDS: LORazepam 0.5 MG TAB PO PRN (16:39)
[2021-02-03 20:00] VITALS: BP 145/68
[2021-02-03] MEDS: ATORVASTATIN 20 MG TAB PO SCH (20:49)
[2021-02-03] MEDS: LATANOPROST 0.005% OPHTH SOLN 2.5 ML OU SCH (20:50)
[2021-02-04 06:00] VITALS: BP 123/80
[2021-02-04 06:33] LABS: INR 1.99
[2021-02-04] MEDS: LEVOTHYROXINE 75MCG TABLET (0.075MG) PO SCH (06:56)
[2021-02-04] MEDS: atenoloL 25 MG TAB PO SCH (06:58)
[2021-02-04] MEDS: ADVAIR HFA 115/21MCG INHALER INH SCH ×2 (08:00→21:26)
[2021-02-04] MEDS: CLOPIDOGREL 75 MG TAB PO SCH (08:56)
[2021-02-04] MEDS: FUROSEMIDE 20 MG TAB PO SCH (08:56)
[2021-02-04] MEDS: LACTOBACILLUS ACIDOPHILUS CAP (BACID) PO SCH ×4 (08:56→20:19)
[2021-02-04] MEDS: OMEPRAZOLE 20 MG CAP PO SCH (08:56)
[2021-02-04] MEDS: QUEtiapine FUMARATE 12.5 MG HALF-TAB PO SCH ×2 (08:56→20:20)
[2021-02-04] MEDS: POTASSIUM CHLORIDE 10MEQ SR TABLET PO SCH (08:57)
[2021-02-04] MEDS: BRIMONIDINE 0.1% OPHTH SOLN 5 ML OU SCH (08:57)
[2021-02-04] MEDS: METAMUCIL (PSYLLIUM) PACKET PO SCH (08:57)
[2021-02-04] MEDS: NYSTATIN 100,000 UNITS/GM TOPICAL PWD 15 GM TOP SCH ×2 (08:58→20:22)
[2021-02-04 14:00] VITALS: BP 117/69
[2021-02-04] MEDS: WARFARIN SOD 2.5MG TAB PO SCH (17:18)
[2021-02-04 20:00] VITALS: BP 124/60
[2021-02-04] MEDS: ATORVASTATIN 20 MG TAB PO SCH (20:19)
[2021-02-04] MEDS: ACETAMINOPHEN TAB 650MG DOSE (2X325MG) PO PRN (20:20)
[2021-02-04] MEDS: LATANOPROST 0.005% OPHTH SOLN 2.5 ML OU SCH (20:20)
[2021-02-05] MEDS: atenoloL 25 MG TAB PO SCH (05:54)
[2021-02-05] MEDS: LEVOTHYROXINE 75MCG TABLET (0.075MG) PO SCH (05:54)
[2021-02-05 06:00] VITALS: BP 138/72
[2021-02-05] MEDS: ADVAIR HFA 115/21MCG INHALER INH SCH ×2 (07:24→20:20)
[2021-02-05 07:42] LABS: BASO # 0.1 10^3/uL (0.0-0.2); EOS # 0.7 10^3/uL (0.0-0.5); EOS % 7.6 % (0.0-3.0); HEMATOCRIT 36.6 % (42.0-52.0); HEMOGLOBIN 11.5 g/dl (13.5-17.5); LYMPH # 1.1 10^3/uL (1.5-5.0); LYMPH % 11.9 % (24.0-44.0); MEAN CORPUSCULAR HEMOGLOBIN 26.2 pg (27.0-33.0); MEAN CORPUSCULAR HGB CONC 31.4 g/dl (32.0-36.5); MEAN CORPUSCULAR VOLUME 83.4 fl (80.0-96.0); MONO % 10.5 % (2.0-8.0); NEUTROPHILS # 6.3 10^3/uL (1.5-8.5); NEUTROPHILS % 68.6 % (36.0-66.0); PLATELET COUNT, AUTOMATED 278 10^3/uL (150-450); RED BLOOD COUNT 4.39 10^6/uL (4.30-6.10); WHITE BLOOD COUNT 9.1 10^3/uL (4.0-10.0)
[2021-02-05] MEDS: LACTOBACILLUS ACIDOPHILUS CAP (BACID) PO SCH ×4 (08:00→20:28)
[2021-02-05 08:03] LABS: BLOOD UREA NITROGEN 16 MG/DL (7-18); CALCIUM LEVEL 8.2 MG/DL (8.8-10.2); CARBON DIOXIDE LEVEL 22 MEQ/L (21-32); CHLORIDE LEVEL 117 MEQ/L (98-107); GLOMERULAR FILTRATION RATE > 60.0 (>35); GLUCOSE, FASTING 79 MG/DL (70-100); SODIUM LEVEL 147 MEQ/L (136-145)
[2021-02-05] MEDS: METAMUCIL (PSYLLIUM) PACKET PO SCH (09:00)
[2021-02-05] MEDS: OMEPRAZOLE 20 MG CAP PO SCH (10:06)
[2021-02-05] MEDS: POTASSIUM CHLORIDE 10MEQ SR TABLET PO SCH (10:06)
[2021-02-05] MEDS: FUROSEMIDE 20 MG TAB PO SCH (10:06)
[2021-02-05] MEDS: CLOPIDOGREL 75 MG TAB PO SCH (10:06)
[2021-02-05] MEDS: QUEtiapine FUMARATE 12.5 MG HALF-TAB PO SCH ×2 (10:06→20:28)
[2021-02-05] MEDS: NYSTATIN 100,000 UNITS/GM TOPICAL PWD 15 GM TOP SCH ×2 (10:09→20:29)
[2021-02-05] MEDS: BRIMONIDINE 0.1% OPHTH SOLN 5 ML OU SCH (10:09)
[2021-02-05] MEDS ORDERED: QUEtiapine FUMARATE 12.5 MG HALF-TAB PO PRN (10:15)
--- NOTE | 2021-02-05 10:34 | IPNPDOC ---
PM&R Progress Note DATE OF SERVICE: Feb 05, 2021 Tappet Adjuster Progress Note Subjective: Patient seen in his room and was encouraged to brush his teeth with OT, however he seemed resistant to doing so and stated he would do it later. REVIEW OF SYSTEMS: The following is a completed review of systems and has been reviewed. Review of systems otherwise unremarkable. PAIN: abdominal pain resolved. EYES: No recent vision changes. EARS, NOSE, & THROAT: No throat pain, or dysphagia, or rhinorrhea. CARDIOVASCULAR: Denies chest pain or palpitations. PULMONARY: denies shortness of breath or cough GASTROINTESTINAL: denies diarrhea/constipation GENITOURINARY: . denies dysuria MUSCULOSKELETAL: . Multiple thoracic Compression fractures stable NEUROLOGICAL:.altered mentation, fluctuates HEMATOLOGICAL: no bleeding or bruising SKIN: .healing laparoscopy ports PSYCHIATRIC: Anxious All other review of systems found to be negative. ALLERGIES: See Below MEDICATIONS: Reviewed, see below. OBJECTIVE: VITAL SIGNS: Please see below. GENERAL: Pleasant and cooperative. No acute distress. HEENT: Extraocular movements intact. Clear conjunctiva , poor dentition, Full cervical range of motion without tenderness or spasm. CARDIOVASCULAR: Regular rate and rhythm. I/ murmur, occasional extra beat, pacemaker present L pectoral region. LUNGS: Clear to auscultation bilaterally, raspy breath sounds. No wheezes. No rhonchi. ABDOMEN: Soft, no tenderness, healed laparoscopic port sites right upper and lateral region, non-distended. Positive normal active bowel sounds. NEUROLOGICAL: Cranial nerves II through XII grossly intact. Sensation grossly intact. 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 No peripheral edema, OA changes SKIN: .Healing Laparoscopy sites, better turgor. ASSESSMENT AND PLAN: DIAGNOSES: Status post small bowel obstruction with repair of incarcerated umbilical hernia 01.16.2021 Delirium Leukocytosis. Anemia Sepsis. Multiple Compression fracture thoracic spine. CHF Dependent edema. hematoma. Head Pleural effusion Emphysema. Status post UTI AK high. Hypothyroidism. Hypertension. Hyperlipidemia. Hypokalemia Glaucoma. GERD. Vascular abnormality. 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 Patient has adjusted well, but is noted by team and with input from spouse that he has had worsening cognitive decline in need of further assessment. PLAN: 1. Rehab- PT/OT advance gait and ADls, strengthen/stretch/maintain ROM all 4 limbs. He has weaned off pain medication and we shall continue with therapy interventions to optimize possible capacity to participate consistently and safely with strong day to day carryover. Still fluctuates. Will check NH4 level as another approach to assess vacillating mental status. . 2. Medical conditions -HTN Atenolol, Lasix, dietary addition, monitor -HLD- c/u statins 3. Resp - continue incentive spirometry, monitor for infection, clear 4. . -will monitor UA since abx dcd and some deterioration in mentation, initial UA appeared infectious, however Ucx did not grow anything, given ongoing confusion in therapy and leukocytosis with repeat UA +LE , started on Levaquin which has been d/c since f/u Ucx negative 5. GI ppx-adjusted laxatives and discontinued Magnesium. He is still incontinent at time of bowel cont metamucil 6. Skin-Usual nursing protocols to maintain skin integrity 7. Neuro-AMS SL augmenting cog eval and reorientation, safety assessments- patient had been on Ativan daily for anxiety which may be contributing to cognitive deficits, I have d/c this altogether and will cont on Seroquel instead in the event there is underlying Lewy Body dementia, will benefit from outpatient neuro eval 8. Hypokalemia- resolved 9. Vasc- on couamdin for hx of femoral artery occlusion, currently supra- therapeutic, warfarin on hold DISPOSITION Home with vs SNF given is concerned she will not be able to care for him with her new diagnosis Allergies Coded Allergies: diphenhydramine (Verified Allergy, Severe, SWELLING, 01/09/21) FISH (Verified Allergy, Unknown, 06/14/08) POULTRY (Verified Allergy, Unknown, DARK MEAT, 06/14/08) bacitracin (Verified Allergy, Unknown, 01/09/21) dorzolamide (Verified Allergy, Unknown, 01/09/21) neomycin (Verified Allergy, Unknown, 01/09/21) polymyxin B (Verified Allergy, Unknown, 01/09/21) shellfish derived (Verified Allergy, Unknown, 01/16/21) timolol (Verified Allergy, Unknown, 01/09/21) valsartan (Verified Allergy, Unknown, 01/09/21) Vital Signs Vital Signs Date Time Temp Pulse Resp B/P (MAP) Pulse Ox O2 Delivery O2 Flow Rate FiO2 02/05/21 06:00 97.9 91 17 138/72 (94) 97 Room Air Laboratory Data CBC/BMP Laboratory Tests 02/05/21 06:51 Labs 24H Laboratory Tests 2 02/05/21 06:51: Immature Granulocyte % (Auto) 0.4, Neutrophils (%) (Auto) 68.6H, Lymphocytes (%) (Auto) 11.9L, Monocytes (%) (Auto) 10.5H, Eosinophils (%) (Auto) 7.6H, Basophils (%) (Auto) 1.0, Neutrophils # (Auto) 6.3, Lymphocytes # (Auto) 1.1L, Monocytes # (Auto) 1.0H, Eosinophils # (Auto) 0.7H, Basophils # (Auto) 0.1, Nucleated Red Bl ood Cells % (auto) 0.0, Anion Gap 8, Glomerular Filtration Rate > 60.0, Calcium Level 8.2L Microbiology Microbiology 01/30/21 Urine Culture - Final, Complete Current Medications Current Medications Current Medications Medications (Trade) Dose Ordered Sig/Dion Route PRN Reason Start Time Stop Time Status Last Admin Dose Admin Acetaminophen (Tylenol Tab) 650 mg DAILYPRN PRN PO PAIN LEVEL 1-4 01/17/21 16:15 01/17/21 16:29 DC Acetaminophen (Tylenol Tab) 650 mg Q4HP PRN PO MILD PAIN (PS 1-4) 01/17/21 14:10 02/04/21 20:20 Albuterol Sulfate (Proventil, Ventolin Hfa) 2 puff QID PRN INH SOB/WHEEZING 01/17/21 16:15 Alprazolam (Xanax) 0.25 mg BID PRN PO anxiety 01/17/21 16:15 02/02/21 11:07 DC 02/01/21 07:52 Amoxicillin/ Clavulanate Potassium (Augmentin) 875 mg BID PO 01/17/21 21:00 01/22/21 23:59 DC 01/22/21 20:23 Atenolol (Tenormin) 25 mg DAILY PO 01/18/21 09:00 01/26/21 08:10 DC 01/25/21 09:04 Atenolol (Tenormin) 25 mg DAILY@0600 PO 01/26/21 06:00 02/05/21 05:54 Atorvastatin Calcium (Lipitor) 40 mg QHS PO 01/17/21 21:00 02/04/21 20:19 Brimonidine Tartrate (Alphagan P 0.1%) 1 drop QAM OU 01/18/21 09:00 02/05/21 10:09 Clopidogrel Bisulfate (PLAVix) 75 mg DAILY PO 01/18/21 09:00 02/05/21 10:06 Furosemide (Lasix) 20 mg DAILY PO 01/18/21 09:00 02/05/21 10:06 Home Med (Home Med List Complete!) ASDIRECTED XX 01/17/21 14:55 01/17/21 15:42 DC Lactobacillus Acidophilus (Bacid) 1 ea WMHS PO 01/31/21 12:30 02/04/21 20:19 Latanoprost (Xalatan 0.005% Op Soln) 1 drop QPM OU 01/17/21 21:00 02/04/21 20:20 Levofloxacin (Levaquin) 250 mg Q48H PO 02/02/21 06:00 02/01/21 11:02 DC Levothyroxine Sodium (Synthroid) 75 mcg DAILY@0600 PO 01/18/21 06:00 02/05/21 05:54 Lorazepam (Ativan) 0.25 mg DAILY@1700 PRN PO ANXIETY/AGITATION 01/31/21 17:00 02/05/21 10:15 DC 02/03/21 16:39 Lorazepam (Ativan) 0.5 mg DAILY@1700 PO 01/19/21 17:00 01/30/21 18:47 DC 01/29/21 17:34 Lorazepam (Ativan) 0.5 mg DAILY@1700 PRN PO ANXIETY/AGITATION 01/30/21 18:45 01/31/21 10:06 DC Magnesium Oxide (Mag-Ox) 400 mg DAILY PO 01/18/21 09:00 01/18/21 10:08 DC 01/18/21 09:50 Miscellaneous (Unresolved Clarification Entry) SEE LABEL COMMENTS DAILY XX 01/24/21 09:00 01/24/21 13:58 DC Nystatin (Mycostatin Powder, Nystop) apply to groin BID TOP 01/31/21 09:00 02/05/21 10:09 Omeprazole (PriLOSEC) 20 mg DAILY PO 01/18/21 09:00 01/17/21 16:29 DC Omeprazole (PriLOSEC) 20 mg DAILY PO 01/18/21 09:00 02/05/21 10:06 Ondansetron HCl (Zofran) 4 mg Q6HP PRN PO NAUSEA 01/17/21 14:10 Oxycodone/ Acetaminophen (Percocet 5mg/ 325mg Tablet) 1 tab Q4HP PRN PO MODERATE PAIN (PS 5-7) 01/17/21 16:15 01/19/21 11:01 DC Oxycodone/ Acetaminophen (Percocet 5mg/ 325mg Tablet) 1 tab Q8HP PRN PO MODERATE PAIN (PS 5-7) 01/19/21 18:00 Cancel Polyethylene Glycol (Miralax) 1 pkt DAILY PO 01/17/21 09:00 01/21/21 12:19 DC 01/17/21 16:54 Potassium Chloride (Micro-K Extencaps) 10 meq DAILY PO 01/18/21 09:00 01/24/21 07:37 DC 01/23/21 08:26 Potassium Chloride (Micro-K Extencaps) 20 meq DAILY PO 01/24/21 09:00 01/30/21 10:26 DC 01/30/21 08:37 Potassium Chloride (Micro-K Extencaps) 40 meq DAILY PO 01/31/21 09:00 02/05/21 10:06 Psyllium Hydrophilic Mucilloid (Metamucil) 1 pkt DAILY PO 01/22/21 09:00 02/02/21 09:17 Quetiapine Fumarate (SEROquel) 12.5 mg BID PO 02/02/21 09:00 02/05/21 10:06 Quetiapine Fumarate (SEROquel) 12.5 mg DAILY PRN PO AGITATION 02/05/21 10:15 Salmeterol Xinafoate/ Fluticasone (Advair Hfa / ) 2 puff RBID INH 01/17/21 20:00 02/05/21 07:24 Senna/Docusate Sodium (Senokot S) 1 tab BID PO 01/17/21 21:00 01/21/21 12:19 DC 01/20/21 21:12 Simethicone (Mylicon) 80 mg QIDP PRN PO BLOATING 01/17/21 14:10 Warfarin Sodium (Coumadin) 2 mg DAILY@17 PO 02/01/21 17:00 02/04/21 11:18 DC 02/03/21 16:11 Warfarin Sodium (Coumadin) 2.5 mg DAILY@17 PO 01/18/21 17:00 01/22/21 17:29 DC 01/22/21 16:53 Warfarin Sodium (Coumadin) 2.5 mg DAILY@17 PO 02/04/21 17:00 02/04/21 17:18 Warfarin Sodium (Coumadin) 2.5 mg DAILY@17 PO 01/27/21 17:00 01/30/21 10:25 DC 01/28/21 16:36 Warfarin Sodium (Coumadin) 5 mg DAILY@17 PO 01/23/21 17:00 01/27/21 11:43 DC 01/26/21 17:13 IAN BARAHONA MD Feb 05, 2021 10:34
[2021-02-05 14:00] VITALS: BP 120/66
[2021-02-05] MEDS: WARFARIN SOD 2.5MG TAB PO SCH (17:41)
[2021-02-05 20:00] VITALS: BP 120/69
[2021-02-05] MEDS: ATORVASTATIN 20 MG TAB PO SCH (20:28)
[2021-02-05] MEDS: LATANOPROST 0.005% OPHTH SOLN 2.5 ML OU SCH (20:29)
[2021-02-06] MEDS: atenoloL 25 MG TAB PO SCH (05:29)
[2021-02-06] MEDS: LEVOTHYROXINE 75MCG TABLET (0.075MG) PO SCH (05:29)
[2021-02-06 06:00] VITALS: BP 138/71
[2021-02-06 06:34] LABS: INR 2.05; PROTHROMBIN TIME 23.5 SECONDS (12.7-14.5)
[2021-02-06] MEDS: ADVAIR HFA 115/21MCG INHALER INH SCH ×2 (08:15→20:40)
[2021-02-06] MEDS: LACTOBACILLUS ACIDOPHILUS CAP (BACID) PO SCH ×4 (08:49→19:28)
[2021-02-06] MEDS: POTASSIUM CHLORIDE 10MEQ SR TABLET PO SCH (08:49)
[2021-02-06] MEDS: FUROSEMIDE 20 MG TAB PO SCH (08:49)
[2021-02-06] MEDS: QUEtiapine FUMARATE 12.5 MG HALF-TAB PO SCH ×2 (08:49→19:28)
[2021-02-06] MEDS: CLOPIDOGREL 75 MG TAB PO SCH (08:49)
[2021-02-06] MEDS: OMEPRAZOLE 20 MG CAP PO SCH (08:49)
[2021-02-06] MEDS: METAMUCIL (PSYLLIUM) PACKET PO SCH (08:50)
[2021-02-06] MEDS: NYSTATIN 100,000 UNITS/GM TOPICAL PWD 15 GM TOP SCH ×2 (08:50→19:28)
[2021-02-06] MEDS: BRIMONIDINE 0.1% OPHTH SOLN 5 ML OU SCH (08:50)
--- NOTE | 2021-02-06 11:52 | IPNPDOC ---
Text Note Date of Service The patient was seen on 02/06/21. NOTE Patient seen and examined no overnight events PHYSICAL EXAMINATION: General: The patient is awake, alert, oriented x3 Head and Neck Exam: Extraocular muscles intact. Pupils equally round and reactive to light. Mucous membranes are moist. Neck is supple. There is no jugular venous distention (JVD). Cardiovascular: S1 and S2, regular rate. Trace edema of the bilateral lower extremities. Respiratory: Normal air entry bilateral lung hollis Abdomen: Soft. Positive bowel sounds. Nontender. No organomegaly. Genitourinary: Deferred Musculoskeletal: Clubbing of the fingernails, no cyanosis was noted. 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 Labs reviewed Radiology reviewed Assessment and plan 1. Debility -In ARU for rehab 2. Hypothyroidism -Continue levothyroxine 3. Hypertension -Continue atenolol 4. Mild hyponatremia -Patient has mild hyponatremia of 147. We will continue to monitor and encourage oral fluid intake. 5. Glaucoma -Continue Brimonidine and latanoprost 6. GERD -Continue omeprazole 7. snf use of 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 -Indication for warfarin was unclear, family reports it is taken after a femoral artery injury many years ago, and was recommended by vascular surgery to continue with warfarin -Patient has therapeutic INR, continue monitor 8. DVT ppx -On warfarin Disposition: Per ARU VS,Alberto, I+O VS, Alberto, I+O Vital Signs Date Time Temp Pulse Resp B/P (MAP) Pulse Ox O2 Delivery O2 Flow Rate FiO2 02/06/21 06:00 98.1 88 16 138/71 (93) 97 Room Air I&O- Last 24 Hours up to 6 AM 02/06/21 05:59 Intake Total 880 ml Output Total 0 ml Balance 880 ml ROSANNA CUMMINS MD Feb 06, 2021 11:52
[2021-02-06 14:00] VITALS: BP 121/66
--- NOTE | 2021-02-06 14:06 | IPNPDOC ---
PM&R Progress Note DATE OF SERVICE: Feb 06, 2021 [employer] Curator Progress Note Subjective: Patient seen in his room stating he had difficulty getting to the bathroom on time to have a bowel movement. REVIEW OF SYSTEMS: The following is a completed review of systems and has been reviewed. Review of systems otherwise unremarkable. PAIN: abdominal pain resolved. EYES: No recent vision changes. EARS, NOSE, & THROAT: No throat pain, or dysphagia, or rhinorrhea. CARDIOVASCULAR: Denies chest pain or palpitations. PULMONARY: denies shortness of breath or cough GASTROINTESTINAL: denies diarrhea/constipation, + incontinence GENITOURINARY: . denies dysuria MUSCULOSKELETAL: . Multiple thoracic Compression fractures stable NEUROLOGICAL:.altered mentation, fluctuates HEMATOLOGICAL: no bleeding or bruising SKIN: .healing laparoscopy ports PSYCHIATRIC: Anxious All other review of systems found to be negative. ALLERGIES: See Below MEDICATIONS: Reviewed, see below. OBJECTIVE: VITAL SIGNS: Please see below. GENERAL: Pleasant and cooperative. No acute distress. HEENT: Extraocular movements intact. Clear conjunctiva , poor dentition, Full cervical range of motion without tenderness or spasm. CARDIOVASCULAR: Regular rate and rhythm. pacemaker present L pectoral region. LUNGS: Clear to auscultation bilaterally, raspy breath sounds. No wheezes. +rhonchi RUL ABDOMEN: Soft, no tenderness, healed laparoscopic port sites right upper and lateral region, non-distended. Positive normal active bowel sounds. NEUROLOGICAL: Cranial nerves II through XII grossly intact. Sensation grossly intact. 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 No peripheral edema, OA changes SKIN: .Healing Laparoscopy sites, better turgor. ASSESSMENT AND PLAN: DIAGNOSES: Status post small bowel obstruction with repair of incarcerated umbilical hernia 01.16.2021 Delirium Leukocytosis. Anemia Sepsis. Multiple Compression fracture thoracic spine. CHF Dependent edema. hematoma. Head Pleural effusion Emphysema. Status post UTI AK high. Hypothyroidism. Hypertension. Hyperlipidemia. Hypokalemia Glaucoma. GERD. Vascular abnormality. 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 ASSESSMENT: This is an 85 year-old man status post recent pacemaker and valve replacement 09/2020 and past medical history of CAD s/p stent, hypertension, hyperlipidemia, hypothyroidism, Barretts esophagus, diverticular disease, emphysema, GERD, umbilical hernia, osteoporosis with multiple thoracic compression fractures, who presents status post laparoscopic reduction of small bowel obstruction placement of mesh, IV antibiotics for UTI and pleural effusion, possible early pneumonia with dyspnea, and remote possibility of other pulmonic or systemic pathology 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 Patient has adjusted well, but is noted by team and with input from spouse that he has had worsening cognitive decline in need of further assessment. PLAN: 1. Rehab- PT/OT advance gait and ADls, strengthen/stretch/maintain ROM all 4 limbs. He has weaned off pain medication and we shall continue with therapy interventions to optimize possible capacity to participate consistently and safely with strong day to day carryover. Still fluctuates. Will check NH4 level as another approach to assess vacillating mental status. . 2. Medical conditions -HTN Atenolol, Lasix, dietary addition, monitor -HLD- c/u statins 3. Resp - continue incentive spirometry, monitor for infection, Rhonchi hear in RUL on today's exam, will order CXR- patient denies cough 4. . -will monitor UA since abx dcd and some deterioration in mentation, initial UA appeared infectious, however Ucx did not grow anything, given ongoing confusion in therapy and leukocytosis with repeat UA +LE , started on Levaquin which has been d/c since f/u Ucx negative 5. GI ppx-adjusted laxatives and discontinued Magnesium. He is still incontinent at time of bowel, will d/c Metamucil as has not been effective, start Imodium daily, d/c PPI, and add iron suupplement to help bulk up stool as patient is having trouble getting to toilet on time 6. Skin-Usual nursing protocols to maintain skin integrity 7. Neuro-AMS SL augmenting cog eval and reorientation, safety assessments- patient had been on Ativan daily for anxiety which may be contributing to cognitive deficits, I have d/c this altogether and will cont on Seroquel instead in the event there is underlying Lewy Body dementia, will benefit from outpatient neuro eval 8. Hypokalemia- resolved 9. Vasc- on couamdin for hx of femoral artery occlusion, currently supra- therapeutic, warfarin on hold DISPOSITION Home with vs SNF given is concerned she will not be able to care for him with her new diagnosis Allergies Coded Allergies: diphenhydramine (Verified Allergy, Severe, SWELLING, 01/09/21) FISH (Verified Allergy, Unknown, 06/14/08) POULTRY (Verified Allergy, Unknown, DARK MEAT, 06/14/08) bacitracin (Verified Allergy, Unknown, 01/09/21) dorzolamide (Verified Allergy, Unknown, 01/09/21) neomycin (Verified Allergy, Unknown, 01/09/21) polymyxin B (Verified Allergy, Unknown, 01/09/21) shellfish derived (Verified Allergy, Unknown, 01/16/21) timolol (Verified Allergy, Unknown, 01/09/21) valsartan (Verified Allergy, Unknown, 01/09/21) Vital Signs Vital Signs Date Time Temp Pulse Resp B/P (MAP) Pulse Ox O2 Delivery O2 Flow Rate FiO2 02/06/21 06:00 98.1 88 16 138/71 (93) 97 Room Air Laboratory Data Labs 24H Laboratory Tests 2 02/06/21 06:04: Prothrombin Time 23.5H, Prothromb Time International Ratio 2.05 Microbiology Microbiology 01/30/21 Urine Culture - Final, Complete Current Medications Current Medications Current Medications Medications (Trade) Dose Ordered Sig/Dion Route PRN Reason Start Time Stop Time Status Last Admin Dose Admin Acetaminophen (Tylenol Tab) 650 mg DAILYPRN PRN PO PAIN LEVEL 1-4 01/17/21 16:15 01/17/21 16:29 DC Acetaminophen (Tylenol Tab) 650 mg Q4HP PRN PO MILD PAIN (PS 1-4) 01/17/21 14:10 02/04/21 20:20 Albuterol Sulfate (Proventil, Ventolin Hfa) 2 puff QID PRN INH SOB/WHEEZING 01/17/21 16:15 Alprazolam (Xanax) 0.25 mg BID PRN PO anxiety 01/17/21 16:15 02/02/21 11:07 DC 02/01/21 07:52 Amoxicillin/ Clavulanate Potassium (Augmentin) 875 mg BID PO 01/17/21 21:00 01/22/21 23:59 DC 01/22/21 20:23 Atenolol (Tenormin) 25 mg DAILY PO 01/18/21 09:00 01/26/21 08:10 DC 01/25/21 09:04 Atenolol (Tenormin) 25 mg DAILY@0600 PO 01/26/21 06:00 02/06/21 05:29 Atorvastatin Calcium (Lipitor) 40 mg QHS PO 01/17/21 21:00 02/05/21 20:28 Brimonidine Tartrate (Alphagan P 0.1%) 1 drop QAM OU 01/18/21 09:00 02/06/21 08:50 Clopidogrel Bisulfate (PLAVix) 75 mg DAILY PO 01/18/21 09:00 02/06/21 08:49 Ferrous Sulfate (Ferrous Sulfate) 325 mg BID PO 02/06/21 21:00 Furosemide (Lasix) 20 mg DAILY PO 01/18/21 09:00 02/06/21 08:49 Home Med (Home Med List Complete!) ASDIRECTED XX 01/17/21 14:55 01/17/21 15:42 DC Lactobacillus Acidophilus (Bacid) 1 ea WMHS PO 01/31/21 12:30 02/06/21 11:52 Latanoprost (Xalatan 0.005% Op Soln) 1 drop QPM OU 01/17/21 21:00 02/05/21 20:29 Levofloxacin (Levaquin) 250 mg Q48H PO 02/02/21 06:00 02/01/21 11:02 DC Levothyroxine Sodium (Synthroid) 75 mcg DAILY@0600 PO 01/18/21 06:00 02/06/21 05:29 Lorazepam (Ativan) 0.25 mg DAILY@1700 PRN PO ANXIETY/AGITATION 01/31/21 17:00 02/05/21 10:15 DC 02/03/21 16:39 Lorazepam (Ativan) 0.5 mg DAILY@1700 PO 01/19/21 17:00 01/30/21 18:47 DC 01/29/21 17:34 Lorazepam (Ativan) 0.5 mg DAILY@1700 PRN PO ANXIETY/AGITATION 01/30/21 18:45 01/31/21 10:06 DC Magnesium Oxide (Mag-Ox) 400 mg DAILY PO 01/18/21 09:00 01/18/21 10:08 DC 01/18/21 09:50 Miscellaneous (Unresolved Clarification Entry) SEE LABEL COMMENTS DAILY XX 01/24/21 09:00 01/24/21 13:58 DC Nystatin (Mycostatin Powder, Nystop) apply to groin BID TOP 01/31/21 09:00 02/06/21 08:50 Omeprazole (PriLOSEC) 20 mg DAILY PO 01/18/21 09:00 01/17/21 16:29 DC Omeprazole (PriLOSEC) 20 mg DAILY PO 01/18/21 09:00 02/06/21 13:48 DC 02/06/21 08:49 Ondansetron HCl (Zofran) 4 mg Q6HP PRN PO NAUSEA 01/17/21 14:10 Oxycodone/ Acetaminophen (Percocet 5mg/ 325mg Tablet) 1 tab Q4HP PRN PO MODERATE PAIN (PS 5-7) 01/17/21 16:15 01/19/21 11:01 DC Oxycodone/ Acetaminophen (Percocet 5mg/ 325mg Tablet) 1 tab Q8HP PRN PO MODERATE PAIN (PS 5-7) 01/19/21 18:00 Cancel Polyethylene Glycol (Miralax) 1 pkt DAILY PO 01/17/21 09:00 01/21/21 12:19 DC 01/17/21 16:54 Potassium Chloride (Micro-K Extencaps) 10 meq DAILY PO 01/18/21 09:00 01/24/21 07:37 DC 01/23/21 08:26 Potassium Chloride (Micro-K Extencaps) 20 meq DAILY PO 01/24/21 09:00 01/30/21 10:26 DC 01/30/21 08:37 Potassium Chloride (Micro-K Extencaps) 40 meq DAILY PO 01/31/21 09:00 02/06/21 08:49 Psyllium Hydrophilic Mucilloid (Metamucil) 1 pkt DAILY PO 01/22/21 09:00 02/06/21 13:48 DC 02/02/21 09:17 Quetiapine Fumarate (SEROquel) 12.5 mg BID PO 02/02/21 09:00 02/06/21 08:49 Quetiapine Fumarate (SEROquel) 12.5 mg DAILY PRN PO AGITATION 02/05/21 10:15 Salmeterol Xinafoate/ Fluticasone (Advair Hfa / 21) 2 puff RBID INH 01/17/21 20:00 02/06/21 08:15 Senna/Docusate Sodium (Senokot S) 1 tab BID PO 01/17/21 21:00 01/21/21 12:19 DC 01/20/21 21:12 Simethicone (Mylicon) 80 mg QIDP PRN PO BLOATING 01/17/21 14:10 Warfarin Sodium (Coumadin) 2 mg DAILY@17 PO 02/01/21 17:00 02/04/21 11:18 DC 02/03/21 16:11 Warfarin Sodium (Coumadin) 2.5 mg DAILY@17 PO 01/18/21 17:00 01/22/21 17:29 DC 01/22/21 16:53 Warfarin Sodium (Coumadin) 2.5 mg DAILY@17 PO 02/04/21 17:00 02/05/21 17:41 Warfarin Sodium (Coumadin) 2.5 mg DAILY@17 PO 01/27/21 17:00 01/30/21 10:25 DC 01/28/21 16:36 Warfarin Sodium (Coumadin) 5 mg DAILY@17 PO 01/23/21 17:00 01/27/21 11:43 DC 01/26/21 17:13 IAN BARAHONA MD Feb 06, 2021 14:06
[2021-02-06] MEDS: LOPERAMIDE 2 MG CAPLET PO SCH (14:21)
--- NOTE | 2021-02-06 14:35 | REP ---
INDICATION: rhonchi RUL. r/o infiltrate COMPARISON: 01/11/2021 TECHNIQUE: PA and lateral. FINDINGS: Mediastinum is stable. Lung hollis demonstrate chronic COPD/emphysematous changes. No discrete focal consolidation. No obvious effusion or pneumothorax. Skeletal structures demonstrate age-related osteopenia and degenerative changes. IMPRESSION: Chronic stable changes. No acute consolidation or effusion. <Electronically signed by Romel Gtz > 02/06/21 [id number]
[2021-02-06] MEDS: WARFARIN SOD 2.5MG TAB PO SCH (17:07)
[2021-02-06] MEDS: ATORVASTATIN 20 MG TAB PO SCH (19:28)
[2021-02-06] MEDS: LATANOPROST 0.005% OPHTH SOLN 2.5 ML OU SCH (19:28)
[2021-02-06] MEDS: FERROUS SULFATE 325MG TAB PO SCH (19:28)
[2021-02-06 20:00] VITALS: BP 126/67
[2021-02-07 06:00] VITALS: BP 134/77
[2021-02-07] MEDS: LEVOTHYROXINE 75MCG TABLET (0.075MG) PO SCH (06:28)
[2021-02-07] MEDS: atenoloL 25 MG TAB PO SCH (06:28)
[2021-02-07] MEDS: ADVAIR HFA 115/21MCG INHALER INH SCH ×2 (07:25→20:25)
[2021-02-07] MEDS: POTASSIUM CHLORIDE 10MEQ SR TABLET PO SCH (08:49)
[2021-02-07] MEDS: FERROUS SULFATE 325MG TAB PO SCH ×2 (08:49→21:11)
[2021-02-07] MEDS: LACTOBACILLUS ACIDOPHILUS CAP (BACID) PO SCH ×4 (08:49→21:11)
[2021-02-07] MEDS: QUEtiapine FUMARATE 12.5 MG HALF-TAB PO SCH ×2 (08:50→21:11)
[2021-02-07] MEDS: NYSTATIN 100,000 UNITS/GM TOPICAL PWD 15 GM TOP SCH ×2 (08:50→21:12)
[2021-02-07] MEDS: BRIMONIDINE 0.1% OPHTH SOLN 5 ML OU SCH (08:50)
[2021-02-07] MEDS: FUROSEMIDE 20 MG TAB PO SCH (08:50)
[2021-02-07] MEDS: CLOPIDOGREL 75 MG TAB PO SCH (08:50)
[2021-02-07] MEDS: LOPERAMIDE 2 MG CAPLET PO SCH (08:50)
[2021-02-07 10:31] LABS: BASO # 0.1 10^3/uL (0.0-0.2); BASO % 0.9 % (0.0-1.0); EOS # 0.4 10^3/uL (0.0-0.5); HEMATOCRIT 37.5 % (42.0-52.0); HEMOGLOBIN 11.7 g/dl (13.5-17.5); LYMPH # 1.1 10^3/uL (1.5-5.0); LYMPH % 10.9 % (24.0-44.0); MEAN CORPUSCULAR HEMOGLOBIN 25.9 pg (27.0-33.0); MEAN CORPUSCULAR HGB CONC 31.2 g/dl (32.0-36.5); MONO # 0.8 10^3/uL (0.0-0.8); MONO % 8.2 % (2.0-8.0); NEUTROPHILS # 7.2 10^3/uL (1.5-8.5); NEUTROPHILS % 75.5 % (36.0-66.0); PLATELET COUNT, AUTOMATED 330 10^3/uL (150-450); RED BLOOD COUNT 4.52 10^6/uL (4.30-6.10); WHITE BLOOD COUNT 9.6 10^3/uL (4.0-10.0)
[2021-02-07 10:42] LABS: INR 2.09; PROTHROMBIN TIME 23.9 SECONDS (12.7-14.5)
[2021-02-07 10:57] LABS: CALCIUM LEVEL 7.8 MG/DL (8.8-10.2); CREATININE FOR GFR 1.26 MG/DL (0.70-1.30); POTASSIUM SERUM 3.9 MEQ/L (3.5-5.1)
--- NOTE | 2021-02-07 11:28 | IPNPDOC ---
PM&R Progress Note DATE OF SERVICE: Feb 07, 2021 Specification Consultant Progress Note Subjective: Patient seen in his room stating with no complaints. REVIEW OF SYSTEMS: The following is a completed review of systems and has been reviewed. Review of systems otherwise unremarkable. PAIN: abdominal pain resolved. EYES: No recent vision changes. EARS, NOSE, & THROAT: No throat pain, or dysphagia, or rhinorrhea. CARDIOVASCULAR: Denies chest pain or palpitations. PULMONARY: denies shortness of breath or cough GASTROINTESTINAL: denies diarrhea/constipation, + incontinence GENITOURINARY: . denies dysuria MUSCULOSKELETAL: . Multiple thoracic Compression fractures stable NEUROLOGICAL:.altered mentation, fluctuates HEMATOLOGICAL: no bleeding or bruising SKIN: .healing laparoscopy ports PSYCHIATRIC: Anxious All other review of systems found to be negative. ALLERGIES: See Below MEDICATIONS: Reviewed, see below. OBJECTIVE: VITAL SIGNS: Please see below. GENERAL: Pleasant and cooperative. No acute distress. HEENT: Extraocular movements intact. Clear conjunctiva , poor dentition, Full cervical range of motion without tenderness or spasm. CARDIOVASCULAR: Regular rate and rhythm. pacemaker present L pectoral region. LUNGS: Clear to auscultation bilaterally, raspy breath sounds. No wheezes. +rhonchi RUL ABDOMEN: Soft, no tenderness, healed laparoscopic port sites right upper and lateral region, non-distended. Positive normal active bowel sounds. NEUROLOGICAL: Cranial nerves II through XII grossly intact. Sensation grossly intact. No cog-wheel rigidity in bilat UE, no clonus or babinksi bilat EXTREMITIES: 5 /5 director trust. No peripheral edema, OA changes SKIN: .Healing Laparoscopy sites, better turgor. ASSESSMENT AND PLAN: DIAGNOSES: Status post small bowel obstruction with repair of incarcerated umbilical hernia 01.16.2021 Delirium Leukocytosis. Anemia Sepsis. Multiple Compression fracture thoracic spine. CHF Dependent edema. hematoma. Head Pleural effusion Emphysema. Status post UTI AK high. Hypothyroidism. Hypertension. Hyperlipidemia. Hypokalemia Glaucoma. GERD. Vascular abnormality. 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 Patient has adjusted well, but is noted by team and with input from spouse that he has had worsening cognitive decline in need of further assessment. PLAN: 1. Rehab- PT/OT advance gait and ADls, strengthen/stretch/maintain ROM all 4 limbs. He has weaned off pain medication and we shall continue with therapy interventions to optimize possible capacity to participate consistently and safely with strong day to day carryover. Still fluctuates. Will check NH4 level as another approach to assess vacillating mental status. . 2. Medical conditions -HTN Atenolol, Lasix, dietary addition, monitor -HLD- c/u statins 3. Resp - continue incentive spirometry, monitor for infection, Rhonchi hear in RUL on today's exam, will order CXR- patient denies cough 4. . -will monitor UA since abx dcd and some deterioration in mentation, initial UA appeared infectious, however Ucx did not grow anything, given ongoing confusion in therapy and leukocytosis with repeat UA +LE , started on Levaquin which has been d/c since f/u Ucx negative 5. GI ppx-adjusted laxatives and discontinued Magnesium. He is still incontinent at time of bowel, will d/c Metamucil as has not been effective, start Imodium daily, d/c PPI, and add iron supplement to help bulk up stool as patient is having trouble getting to toilet on time 6. Skin-Usual nursing protocols to maintain skin integrity 7. Neuro-AMS SL augmenting cog eval and reorientation, safety assessments- patient had been on Ativan daily for anxiety which may be contributing to cognitive deficits, I have d/c this altogether and will cont on Seroquel instead in the event there is underlying Lewy Body dementia, will benefit from outpatient neuro eval 8. Hypokalemia- resolved 9. Vasc- on couamdin for hx of femoral artery occlusion, currently supra- therapeutic, warfarin on hold Allergies Coded Allergies: diphenhydramine (Verified Allergy, Severe, SWELLING, 01/09/21) FISH (Verified Allergy, Unknown, 06/14/08) POULTRY (Verified Allergy, Unknown, DARK MEAT, 06/14/08) bacitracin (Verified Allergy, Unknown, 01/09/21) dorzolamide (Verified Allergy, Unknown, 01/09/21) neomycin (Verified Allergy, Unknown, 01/09/21) polymyxin B (Verified Allergy, Unknown, 01/09/21) shellfish derived (Verified Allergy, Unknown, 01/16/21) timolol (Verified Allergy, Unknown, 01/09/21) valsartan (Verified Allergy, Unknown, 01/09/21) Vital Signs Vital Signs Date Time Temp Pulse Resp B/P (MAP) Pulse Ox O2 Delivery O2 Flow Rate FiO2 02/07/21 06:28 93 134/77 02/07/21 06:00 98.5 17 97 Room Air Laboratory Data CBC/BMP Laboratory Tests 02/07/21 10:08 Labs 24H Laboratory Tests 2 02/07/21 10:08: Immature Granulocyte % (Auto) 0.5, Neutrophils (%) (Auto) 75.5H, Lymphocytes (%) (Auto) 10.9L, Monocytes (%) (Auto) 8.2H, Eosinophils (%) (Auto) 4.0H, Basophils (%) (Auto) 0.9, Neutrophils # (Auto) 7.2, Lymphocytes # (Auto) 1.1L, Monocytes # (Auto) 0.8, Eosinophils # (Auto) 0.4, Basophils # (Auto) 0.1, Nucleated Red Blood Cells % (auto) 0.0, Prothrombin Time 23.9H, Prothromb Time International Ratio 2.09, Anion Gap 8, Glomerular Filtration Rate 58.0, Calcium Level 7.8L Microbiology Microbiology 01/30/21 Urine Culture - Final, Complete Current Medications Current Medications Current Medications Medications (Trade) Dose Ordered Sig/Dion Route PRN Reason Start Time Stop Time Status Last Admin Dose Admin Acetaminophen (Tylenol Tab) 650 mg DAILYPRN PRN PO PAIN LEVEL 1-4 01/17/21 16:15 01/17/21 16:29 DC Acetaminophen (Tylenol Tab) 650 mg Q4HP PRN PO MILD PAIN (PS 1-4) 01/17/21 14:10 02/04/21 20:20 Albuterol Sulfate (Proventil, Ventolin Hfa) 2 puff QID PRN INH SOB/WHEEZING 01/17/21 16:15 Alprazolam (Xanax) 0.25 mg BID PRN PO anxiety 10/27/21 16:15 02/02/21 11:07 DC 02/01/21 07:52 Amoxicillin/ Clavulanate Potassium (Augmentin) 875 mg BID PO 01/17/21 21:00 01/22/21 23:59 DC 01/22/21 20:23 Atenolol (Tenormin) 25 mg DAILY PO 01/18/21 09:00 01/26/21 08:10 DC 01/25/21 09:04 Atenolol (Tenormin) 25 mg DAILY@0600 PO 01/26/21 06:00 02/07/21 06:28 Atorvastatin Calcium (Lipitor) 40 mg QHS PO 01/17/21 21:00 02/06/21 19:28 Brimonidine Tartrate (Alphagan P 0.1%) 1 drop QAM OU 01/18/21 09:00 02/07/21 08:50 Clopidogrel Bisulfate (PLAVix) 75 mg DAILY PO 01/18/21 09:00 02/07/21 08:50 Ferrous Sulfate (Ferrous Sulfate) 325 mg BID PO 02/06/21 21:00 02/07/21 08:49 Furosemide (Lasix) 20 mg DAILY PO 01/18/21 09:00 02/07/21 11:26 DC 02/07/21 08:50 Home Med (Home Med List Complete!) ASDIRECTED XX 01/17/21 14:55 01/17/21 15:42 DC Lactobacillus Acidophilus (Bacid) 1 ea WMHS PO 01/31/21 12:30 02/07/21 08:49 Latanoprost (Xalatan 0.005% Op Soln) 1 drop QPM OU 01/17/21 21:00 02/06/21 19:28 Levofloxacin (Levaquin) 250 mg Q48H PO 02/02/21 06:00 02/01/21 11:02 DC Levothyroxine Sodium (Synthroid) 75 mcg DAILY@0600 PO 01/18/21 06:00 02/07/21 06:28 Loperamide HCl (Imodium) 4 mg DAILY PO 02/06/21 09:00 02/07/21 08:50 Lorazepam (Ativan) 0.25 mg DAILY@1700 PRN PO ANXIETY/AGITATION 01/31/21 17:00 02/05/21 10:15 DC 02/03/21 16:39 Lorazepam (Ativan) 0.5 mg DAILY@1700 PO 01/19/21 17:00 01/30/21 18:47 DC 01/29/21 17:34 Lorazepam (Ativan) 0.5 mg DAILY@1700 PRN PO ANXIETY/AGITATION 01/30/21 18:45 01/31/21 10:06 DC Magnesium Oxide (Mag-Ox) 400 mg DAILY PO 01/18/21 09:00 01/18/21 10:08 DC 01/18/21 09:50 Miscellaneous (Unresolved Clarification Entry) SEE LABEL COMMENTS DAILY XX 01/24/21 09:00 01/24/21 13:58 DC Nystatin (Mycostatin Powder, Nystop) apply to groin BID TOP 01/31/21 09:00 02/07/21 08:50 Omeprazole (PriLOSEC) 20 mg DAILY PO 01/18/21 09:00 01/17/21 16:29 DC Omeprazole (PriLOSEC) 20 mg DAILY PO 01/18/21 09:00 02/06/21 13:48 DC 02/06/21 08:49 Ondansetron HCl (Zofran) 4 mg Q6HP PRN PO NAUSEA 01/17/21 14:10 Oxycodone/ Acetaminophen (Percocet 5mg/ 325mg Tablet) 1 tab Q4HP PRN PO MODERATE PAIN (PS 5-7) 01/17/21 16:15 01/19/21 11:01 DC Oxycodone/ Acetaminophen (Percocet 5mg/ 325mg Tablet) 1 tab Q8HP PRN PO MODERATE PAIN (PS 5-7) 01/19/21 18:00 Cancel Polyethylene Glycol (Miralax) 1 pkt DAILY PO 01/17/21 09:00 01/21/21 12:19 DC 01/17/21 16:54 Potassium Chloride (Micro-K Extencaps) 10 meq DAILY PO 01/18/21 09:00 01/24/21 07:37 DC 01/23/21 08:26 Potassium Chloride (Micro-K Extencaps) 20 meq DAILY PO 01/24/21 09:00 01/30/21 10:26 DC 01/30/21 08:37 Potassium Chloride (Micro-K Extencaps) 40 meq DAILY PO 01/31/21 09:00 02/07/21 08:49 Psyllium Hydrophilic Mucilloid (Metamucil) 1 pkt DAILY PO 01/22/21 09:00 02/06/21 13:48 DC 02/02/21 09:17 Quetiapine Fumarate (SEROquel) 12.5 mg BID PO 02/02/21 09:00 02/07/21 08:50 Quetiapine Fumarate (SEROquel) 12.5 mg DAILY PRN PO AGITATION 02/05/21 10:15 Salmeterol Xinafoate/ Fluticasone (Advair Hfa ) 2 puff RBID INH 01/17/21 20:00 02/07/21 07:25 Senna/Docusate Sodium (Senokot S) 1 tab BID PO 01/17/21 21:00 01/21/21 12:19 DC 01/20/21 21:12 Simethicone (Mylicon) 80 mg QIDP PRN PO BLOATING 01/17/21 14:10 Warfarin Sodium (Coumadin) 2 mg DAILY@17 PO 02/01/21 17:00 02/04/21 11:18 DC 02/03/21 16:11 Warfarin Sodium (Coumadin) 2.5 mg DAILY@17 PO 01/18/21 17:00 01/22/21 17:29 DC 01/22/21 16:53 Warfarin Sodium (Coumadin) 2.5 mg DAILY@17 PO 02/04/21 17:00 02/06/21 17:07 Warfarin Sodium (Coumadin) 2.5 mg DAILY@17 PO 01/27/21 17:00 01/30/21 10:25 DC 01/28/21 16:36 Warfarin Sodium (Coumadin) 5 mg DAILY@17 PO 01/23/21 17:00 01/27/21 11:43 DC 01/26/21 17:13 IAN BARAHONA MD Feb 07, 2021 11:28
[2021-02-07 14:00] VITALS: BP 137/80
[2021-02-07] MEDS: WARFARIN SOD 2.5MG TAB PO SCH (17:26)
[2021-02-07 20:00] VITALS: BP 147/65
[2021-02-07] MEDS: LATANOPROST 0.005% OPHTH SOLN 2.5 ML OU SCH (21:12)
[2021-02-07] MEDS: ATORVASTATIN 20 MG TAB PO SCH (21:12)
[2021-02-08 05:23] VITALS: BP 129/79
[2021-02-08 05:25] VITALS: BP 129/79
[2021-02-08] MEDS: LEVOTHYROXINE 75MCG TABLET (0.075MG) PO SCH (05:25)
[2021-02-08] MEDS: atenoloL 25 MG TAB PO SCH (05:25)
[2021-02-08] MEDS: ADVAIR HFA 115/21MCG INHALER INH SCH (07:50)
[2021-02-08] MEDS: LOPERAMIDE 2 MG CAPLET PO SCH (08:25)
[2021-02-08] MEDS: QUEtiapine FUMARATE 12.5 MG HALF-TAB PO SCH (08:25)
[2021-02-08] MEDS: POTASSIUM CHLORIDE 10MEQ SR TABLET PO SCH (08:25)
[2021-02-08] MEDS: LACTOBACILLUS ACIDOPHILUS CAP (BACID) PO SCH ×2 (08:25→12:30)
[2021-02-08] MEDS: FERROUS SULFATE 325MG TAB PO SCH (08:25)
[2021-02-08] MEDS: CLOPIDOGREL 75 MG TAB PO SCH (08:25)
[2021-02-08] MEDS: BRIMONIDINE 0.1% OPHTH SOLN 5 ML OU SCH (08:26)
[2021-02-08] MEDS: NYSTATIN 100,000 UNITS/GM TOPICAL PWD 15 GM TOP SCH (08:26)
[2021-02-08 08:32] LABS: INR 2.19; PROTHROMBIN TIME 24.7 SECONDS (12.7-14.5)
[2021-02-08] MEDS ORDERED: QUET1TAB17 PO ×2 (09:32)
[2021-02-08] MEDS ORDERED: JANT2.5T PO (09:32)
[2021-02-08] MEDS ORDERED: MI-A80CH PO (09:32)
[2021-02-08] MEDS ORDERED: NYST10006 TOP (09:32)
[2021-02-08] MEDS ORDERED: LOPE2CA PO (09:32)
[2021-02-08] MEDS ORDERED: POTA-136 PO (09:32)
[2021-02-08] MEDS ORDERED: FERR325T3 PO (10:23)
--- NOTE | 2021-02-08 11:46 | PMRDS ---
NAME: KENDRA MURO [facility] WT ID#: [id number] JOB: [id number] KEYANA: 01/23/2021 ACCT: [id number] DOCTOR: IAN BARAHONA MD PMR DISCHARGE SUMMARY DATE OF ADMISSION: 01/17/2021 DATE OF DISCHARGE: 02/08/2021 DISCHARGE DIAGNOSIS: Debility in the setting of small bowel obstruction status post repair and dementia. HISTORY OF PRESENT ILLNESS: This is an 85-year-old man with a past medical history of hypertension, history of right femoral artery abnormality on long-term anticoagulation, pacemaker, valve replacement, who presented to [facility] ED with abdominal pain, decreased abdomen, and was diagnosed with an incarcerated loop of bowel in the history of longstanding umbilical hernia in addition to a small bowel obstruction. He was evaluated by surgery who performed an incarcerated umbilical hernia repair and he was graduated from a liquid diet to a soft diet. He had notable impairments in ADLs and mobility and was deemed medically appropriate for discharge to ARU. PAST MEDICAL HISTORY: As per HPI. HOSPITAL COURSE: Patient was admitted and enrolled in a comprehensive PT/OT, Speech, Language Pathology Program. He received 24 hour nursing supervision and weekly team meetings were held to discuss his progress. Patient was noted to have alternating levels of mentation during his hospital course and initially was given Ativan for anxiety which was eventually discontinued due to a concern for it worsening his overall cognition and function and replaced with Seroquel. Patient's cognition and ability to participate in therapy improved with this alteration and medication. He had consistent incontinence mostly due to the inability to get to the bathroom on time which was initially treated with Metamucil, however later this was adjusted to Imodium daily, his PPI was discontinued due to a concern for diarrhea as a side-effect and iron supplement was added to bulk up his stool. UA was ordered on multiple occasions for workup for confusion, however this came back negative each time. He made steady gains in therapy and was deemed medically and functionally appropriate for further rehab with the ultimate goal of getting home but for transfer to short-term rehab in the interim. DISCHARGE MEDICATIONS: As per instructions. FUNCTIONAL HISTORY ON DISCHARGE: Patient was standby assist for ambulation and standby assist for toileting, dressing and bathing. Thank you for this referral.
== END 2021-02-08 12:38 | DRG 949 ==
LOC: M PM&R 15:35
PROVIDERS: ADMIT Physical Medicine & Rehabilitation; ATTEND Physical Medicine & Rehabilitation
DX: Z48.815 Encounter for surgical aftercare following surgery on the digestive system (principal); M48.54XA Collapsed vertebra, not elsewhere classified, thoracic region, initial encounter for fracture; E87.1 Hypo-osmolality and hyponatremia; R53.1 Weakness; D64.9 Anemia, unspecified; I50.9 Heart failure, unspecified; J43.9 Emphysema, unspecified; E03.9 Hypothyroidism, unspecified; I11.0 Hypertensive heart disease with heart failure; E78.5 Hyperlipidemia, unspecified; H40.9 Unspecified glaucoma; K21.9 Gastro-esophageal reflux disease without esophagitis; R41.0 Disorientation, unspecified; Z95.0 Presence of cardiac pacemaker; Z95.2 Presence of prosthetic heart valve; K22.70 Barrett's esophagus without dysplasia; K57.90 Diverticulosis of intestine, part unspecified, without perforation or abscess without bleeding; E78.00 Pure hypercholesterolemia, unspecified; Z95.5 Presence of coronary angioplasty implant and graft; Z96.653 Presence of artificial knee joint, bilateral; Z79.02 Long term (current) use of antithrombotics/antiplatelets; Z79.899 Other long term (current) drug therapy; Z88.8 Allergy status to other drugs, medicaments and biological substances; Z91.013 Allergy to seafood; Z91.018 Allergy to other foods; F03.90 Unspecified dementia, unspecified severity, without behavioral disturbance, psychotic disturbance, mood disturbance, and anxiety; Z79.01 Long term (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s; Z87.891 Personal history of nicotine dependence; R53.81 Other malaise

== ENCOUNTER → 2023-08-14 | Outpatient (REF) | payer MEDICARE ==
[~2023-08-14] MED LIST changes: +FERR325T3 PO; +JANT2.5T PO; -K-TA10TA2 PO; +LOPE2CA PO; +LOSA50TA28 PO; -LOSA50TA88 PO; +MI-A80CH PO; +NYST10006 TOP; +OMEP-173 PO; -OMEP-218 PO; +POTA-136 PO; +POTA-165 PO; +QUET1TAB17 PO
[2023-08-14 13:52] LABS: PROTHROMBIN TIME 115.3 SECONDS (12.5-14.5)
[2023-08-14 14:09] LABS: INR 17.24
== END ==
LOC: M LAB REF 13:09
PROVIDERS: ATTEND Internal Medicine
DX: Z79.01 Long term (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s (principal)

== ENCOUNTER → 2023-08-15 | Outpatient (REF) | payer MEDICARE, OTHER ==
[2023-08-15 13:56] LABS: INR 3.6; PROTHROMBIN TIME 34.6 SECONDS (12.5-14.5)
== END ==
LOC: M LAB REF 12:31
PROVIDERS: ATTEND Internal Medicine
DX: I10 Essential (primary) hypertension (principal); I35.0 Nonrheumatic aortic (valve) stenosis; Z79.01 Long term (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s

== ENCOUNTER 2023-09-10 10:27 | Emergency (ER) | payer MEDICARE, MEDICAID ==
[~2023-09-10] VITALS: Ht 160 cm; Wt 56.6 kg
[2023-09-10] MEDS ORDERED: XARE15TA PO (10:37)
[2023-09-10] MEDS ORDERED: LEVO112T2 (10:44)
[2023-09-10] MEDS ORDERED: TAMS1CAP17 (10:44)
[2023-09-10] MEDS ORDERED: BUSP5TA (10:44)
[2023-09-10] MEDS ORDERED: METO1TAB32 PO (10:44)
[2023-09-10 11:31] LABS: HEMATOCRIT 46.4 % (42.0-52.0); HEMOGLOBIN 15.3 g/dl (13.5-17.5); MEAN CORPUSCULAR HEMOGLOBIN 30.7 pg (27.0-33.0); MEAN CORPUSCULAR VOLUME 93.2 fl (80.0-96.0); PLATELET COUNT, AUTOMATED 194 10^3/uL (150-450); RED BLOOD COUNT 4.98 10^6/uL (4.30-6.10); WHITE BLOOD COUNT 10.1 10^3/uL (4.0-10.0)
[2023-09-10 11:59] LABS: BLOOD UREA NITROGEN 30 MG/DL (9-23); CALCIUM LEVEL 10.1 MG/DL (8.3-10.6); CARBON DIOXIDE LEVEL 28 MMOL/L (20-31); CHLORIDE LEVEL 106 MMOL/L (98-107); CREATININE FOR GFR 1.15 MG/DL (0.70-1.30); GLOMERULAR FILTRATION RATE > 60.0 (>35); GLUCOSE, FASTING 100 MG/DL (74-106); POTASSIUM SERUM 4.6 MMOL/L (3.5-5.1); SODIUM LEVEL 141 MMOL/L (136-145)
[2023-09-10] MEDS: NS 500 ML IV ONE (12:53)
[2023-09-10 13:45] VITALS: BP 129/69; TEMP 98.2; O2SAT 97
== END 2023-09-10 13:56 | disposition home or self-care (01) ==
LOC: M ED 10:27
DX: E86.0 Dehydration (principal); I45.81 Long QT syndrome; I49.1 Atrial premature depolarization; I10 Essential (primary) hypertension; E78.5 Hyperlipidemia, unspecified; Z95.0 Presence of cardiac pacemaker; Z86.79 Personal history of other diseases of the circulatory system; Z88.1 Allergy status to other antibiotic agents; Z88.8 Allergy status to other drugs, medicaments and biological substances; Z91.013 Allergy to seafood; Z79.52 Long term (current) use of systemic steroids; Z79.1 Long term (current) use of non-steroidal anti-inflammatories (NSAID); Z79.899 Other long term (current) drug therapy; Z79.83 Long term (current) use of bisphosphonates

== ENCOUNTER → 2023-09-24 | Outpatient (CLI) | payer OTHER, MEDICAID ==
[~2023-09-24] MED LIST changes: +BUSP5TA; +LEVO112T2; +METO1TAB32 PO; +TAMS1CAP17; +XARE15TA PO
== END ==
LOC: M RAD 15:20
PROVIDERS: ATTEND Internal Medicine
DX: M16.11 Unilateral primary osteoarthritis, right hip (principal); M25.551 Pain in right hip

== ENCOUNTER → 2024-01-28 | Outpatient (CLI) | payer OTHER, MEDICAID | LOC: M WUC 15:16 | PROVIDERS: ATTEND Internal Medicine | DX: M25.552 Pain in left hip (principal); Z97.8 Presence of other specified devices ==

== ENCOUNTER → 2024-05-19 | Outpatient (CLI) | payer OTHER, MEDICAID ==
[~2024-05-19] MED LIST changes: -ADV250INH INH; +ADVA1AER9 INH
== END ==
LOC: M WUC 15:17
PROVIDERS: ATTEND Internal Medicine
DX: R04.2 Hemoptysis (principal); J18.9 Pneumonia, unspecified organism

== ENCOUNTER 2024-06-18 15:01 | Inpatient (IN) | payer OTHER, MEDICAID ==
[~2024-06-18] VITALS: Ht 160 cm; Wt 50.2 kg
[~2024-06-18 15:01] MED LIST changes: -BUSP5TA; +BUSP5TA PO; -LEVO112T2; +LEVO112T2 PO; -TAMS1CAP17; +TAMS1CAP17 PO
[2024-06-18 16:07] LABS: BASO % 0.4 % (0.0-1.0); EOS # 0.1 10^3/uL (0.0-0.5); EOS % 0.9 % (0.0-3.0); HEMATOCRIT 37.6 % (42.0-52.0); HEMOGLOBIN 11.5 g/dl (13.5-17.5); LYMPH # 1.3 10^3/uL (1.5-5.0); MEAN CORPUSCULAR HEMOGLOBIN 27.3 pg (27.0-33.0); MEAN CORPUSCULAR HGB CONC 30.6 g/dl (32.0-36.5); MEAN CORPUSCULAR VOLUME 89.3 fl (80.0-96.0); MONO # 0.7 10^3/uL (0.0-0.8); MONO % 10.2 % (2.0-8.0); NEUTROPHILS # 4.8 10^3/uL (1.5-8.5); NEUTROPHILS % 69.1 % (36.0-66.0); PLATELET COUNT, AUTOMATED 198 10^3/uL (150-450); RED BLOOD COUNT 4.21 10^6/uL (4.30-6.10); VENOUS BASE EXCESS -1.1 (-2.0-2.0); VENOUS HCO3 23.3 MMOL/L (23.0-27.0); VENOUS PARTIAL PRESSURE CO2 37.9 mmHg (38.0-50.0); VENOUS PARTIAL PRESSURE O2 29.8 mmHg (30.0-50.0); VENOUS PH 7.407 UNITS (7.330-7.430); VENOUS STANDARD HCO3 22.8 MMOL/L; VENOUS TOTAL CO2 24.5 MMOL/L (24.0-28.0)
[2024-06-18 16:18] LABS: INR 1.07; PROTHROMBIN TIME 14.2 SECONDS (12.5-14.5)
[2024-06-18 16:34] LABS: ALBUMIN 3.1 G/DL (3.2-5.2); ALKALINE PHOSPHATASE 107 U/L (40-129); ALT/SGPT < 9 U/L (7.0-40); AST/SGOT 20 U/L (<34); BILIRUBIN,DIRECT 0.3 MG/DL (<0.4); BILIRUBIN,TOTAL 1.1 MG/DL (0.3-1.2); BLOOD UREA NITROGEN 23 MG/DL (9-23); CALCIUM LEVEL 8.5 MG/DL (8.3-10.6); CARBON DIOXIDE LEVEL 28 MMOL/L (20-31); CHLORIDE LEVEL 107 MMOL/L (98-107); CK-MB VALUE MASS < 1.0 NG/ML (<3.6); CPK CREATINE PHOSPHOKINASE 46 U/L (46-171); CREATININE FOR GFR 0.81 MG/DL (0.70-1.30); GLOMERULAR FILTRATION RATE > 60.0 (>35); GLUCOSE, FASTING 104 MG/DL (74-106); MB/CK RELATIVE INDEX 2.17 (< OR =4); SODIUM LEVEL 144 MMOL/L (136-145); TOTAL PROTEIN 6.6 G/DL (5.7-8.2)
[2024-06-18 16:36] LABS: THYROID STIMULATING HORMONE 1.794 uIU/ML (0.55-4.78); THYROXINE (T4) 9.3 UG/DL (4.5-10.9)
[2024-06-18] MEDS ORDERED: FUROSEMIDE 20MG/2ML VIAL IV ONE (17:10)
[2024-06-18 21:29] VITALS: BP 164/108; TEMP 97.5; O2SAT 95
[2024-06-18] MEDS: IPRATROPIUM 0.5MG/ALBUTEROL 2.5MG INH SOL UD 3ML (DUONEB) NEB SCH (22:30)
[2024-06-18] MEDS: METOPROLOL TART 25 MG TABLET PO ONE (22:47)
[2024-06-18] MEDS: FUROSEMIDE 20MG/2ML VIAL IV ONE (22:48)
[2024-06-18] MEDS ORDERED: POTA20LI16 PO (23:46)
[2024-06-18] MEDS ORDERED: FURO40TA2 PO (23:46)
[2024-06-18] MEDS ORDERED: FLUTISP NARES (23:46)
[2024-06-18] MEDS ORDERED: [UNRECOGNIZED DRUG - CODE] OU (23:46)
[2024-06-18] MEDS ORDERED: BUME2TAB3 PO (23:46)
[2024-06-18] MEDS ORDERED: SPIR-10 PO (23:46)
[2024-06-18] MEDS ORDERED: HOME MED LIST COMPLETE! XX SCH (23:55)
[2024-06-19 04:01] VITALS: BP 121/73; TEMP 97.7; O2SAT 93
[2024-06-19] MEDS: LEVOTHYROXINE 112MCG TABLET (0.112MG) PO SCH ×2 (05:41→10:33)
[2024-06-19 06:01] LABS: HEMATOCRIT 35.1 % (42.0-52.0); HEMOGLOBIN 10.8 g/dl (13.5-17.5); MEAN CORPUSCULAR HEMOGLOBIN 27.3 pg (27.0-33.0); MEAN CORPUSCULAR HGB CONC 30.8 g/dl (32.0-36.5); MEAN CORPUSCULAR VOLUME 88.9 fl (80.0-96.0); PLATELET COUNT, AUTOMATED 237 10^3/uL (150-450); RED BLOOD COUNT 3.95 10^6/uL (4.30-6.10); WHITE BLOOD COUNT 14.3 10^3/uL (4.0-10.0)
[2024-06-19 06:32] LABS: BLOOD UREA NITROGEN 20 MG/DL (9-23); CALCIUM LEVEL 8.5 MG/DL (8.3-10.6); CARBON DIOXIDE LEVEL 27 MMOL/L (20-31); CHLORIDE LEVEL 105 MMOL/L (98-107); CREATININE FOR GFR 0.88 MG/DL (0.70-1.30); GLOMERULAR FILTRATION RATE > 60.0 (>35); GLUCOSE, FASTING 89 MG/DL (74-106); POTASSIUM SERUM 3.6 MMOL/L (3.5-5.1); SODIUM LEVEL 146 MMOL/L (136-145)
[2024-06-19] MEDS ORDERED: FLUTICASONE PROP 0.05% NASAL SPRAY 16 GM (FLONASE) NARES PRN (07:25)
[2024-06-19] MEDS ORDERED: ENTER DRUG NAME HERE (PATIENT'S OWN MED) OU SCH (09:00)
[2024-06-19] MEDS ORDERED: METOPROLOL SUCC *XL* 25MG TAB (TopROL *XL*) PO SCH (09:00)
[2024-06-19] MEDS ORDERED: NYSTATIN 100,000 UNITS/GM TOPICAL PWD 15GM TOP PRN (09:05)
[2024-06-19 09:14] VITALS: BP 143/69
[2024-06-19] MEDS: PANTOPRAZOLE 40MG VIAL IV SCH (09:15)
[2024-06-19] MEDS: FUROSEMIDE 40MG/4ML VIAL IV SCH ×2 (09:15→16:19)
[2024-06-19 09:55] LABS: KETONE, URINE AUTO RFX TRACE mg/dL (NEGATIVE); MUCUS, URINE RFX SMALL (NEGATIVE); NITRITE, URINE AUTO RFX NEGATIVE (NEGATIVE); RBC, URINE AUTO RFX TNTC /HPF (0-3); SQUAM EPITHELIAL CELL UR AURFX 1 /HPF (0-6)
[2024-06-19 09:56] LABS: LEUKOCYTE ESTERASE UR AUTO RFX 2+ (NEGATIVE); WBC, URINE AUTO RFX 20 /HPF (0-3)
[2024-06-19] MEDS ORDERED: BRIM5DRO15 OU (10:08)
[2024-06-19] MEDS: ENOXAPARIN 40MG/0.4ML SYRINGE (J1650 PER 10MG) SC SCH (10:31)
[2024-06-19] MEDS: cefTRIAXone SOD 1 GM in DEXTROSE 5% (D5W) ADV/MINI-BAG 50 ML IV SCH (10:31)
[2024-06-19] MEDS: METOPROLOL SUCC *XL* 25MG TAB (TopROL *XL*) PO SCH (10:31)
[2024-06-19] MEDS: TAMSULOSIN 0.4 MG CAP PO SCH (10:31)
[2024-06-19] MEDS: busPIRone 5 MG TAB PO SCH (10:33)
[2024-06-19] MEDS: SPIRONOLACTONE 12.5MG PER 1/2 TABLET PO SCH (10:33)
[2024-06-19] MEDS: DOXYCYCLINE HYCLATE 100MG TABLET PO SCH (12:36)
[2024-06-19 13:00] VITALS: BP 98/49; TEMP 97.7; O2SAT 93
[2024-06-19] MEDS ORDERED: FUROSEMIDE 40MG/4ML VIAL IV SCH ×2 (14:00→17:00)
[2024-06-19 16:13] VITALS: BP 96/50
[2024-06-19] MEDS: BRIMONIDINE 0.1% OPHTH SOLN 5ML OU SCH (16:16)
[2024-06-19 17:07] LABS: C REACTIVE PROTEIN QUANTITATIV 4.87 MG/DL (<1.0)
[2024-06-19 20:53] VITALS: BP 102/51; TEMP 97.9; O2SAT 93
[2024-06-19] MEDS: guaiFENesin ER TABLET 600 MG TAB PO SCH (21:18)
[2024-06-19] MEDS: LATANOPROST 0.005% OPHTH SOLN 2.5 ML OU SCH (21:18)
[2024-06-20] VITALS (9 sets, daily range): BP systolic 99–147; BP diastolic 52–78; TEMP 97.3–99.1; O2SAT 92–97
[2024-06-20 04:36] LABS: BASO % 0.4 % (0.0-1.0); EOS # 0.1 10^3/uL (0.0-0.5); EOS % 1.6 % (0.0-3.0); HEMATOCRIT 31.1 % (42.0-52.0); HEMOGLOBIN 9.8 g/dl (13.5-17.5); LYMPH # 1.2 10^3/uL (1.5-5.0); LYMPH % 15.2 % (24.0-44.0); MEAN CORPUSCULAR HEMOGLOBIN 28.3 pg (27.0-33.0); MEAN CORPUSCULAR HGB CONC 31.5 g/dl (32.0-36.5); MEAN CORPUSCULAR VOLUME 89.9 fl (80.0-96.0); MONO # 0.7 10^3/uL (0.0-0.8); MONO % 8.5 % (2.0-8.0); NEUTROPHILS # 5.7 10^3/uL (1.5-8.5); NEUTROPHILS % 73.7 % (36.0-66.0); PLATELET COUNT, AUTOMATED 241 10^3/uL (150-450); RED BLOOD COUNT 3.46 10^6/uL (4.30-6.10); WHITE BLOOD COUNT 7.7 10^3/uL (4.0-10.0)
[2024-06-20 05:03] LABS: BLOOD UREA NITROGEN 24 MG/DL (9-23); C REACTIVE PROTEIN QUANTITATIV 7.39 MG/DL (<1.0); CARBON DIOXIDE LEVEL 27 MMOL/L (20-31); CHLORIDE LEVEL 111 MMOL/L (98-107); CREATININE FOR GFR 1.11 MG/DL (0.70-1.30); GLOMERULAR FILTRATION RATE > 60.0 (>35); GLUCOSE, FASTING 79 MG/DL (74-106); POTASSIUM SERUM 3.3 MMOL/L (3.5-5.1); SODIUM LEVEL 146 MMOL/L (136-145)
[2024-06-20 08:04] LABS: PROCALCITONIN 0.14 ng/ml
[2024-06-20] MEDS: POTASSIUM CHLORIDE 10MEQ SR TABLET PO ONE ×2 (09:37→13:15)
[2024-06-21 03:26] VITALS: BP 133/72; TEMP 98.4; O2SAT 96
[2024-06-21 04:53] LABS: BASO # 0.1 10^3/uL (0.0-0.2); BASO % 0.6 % (0.0-1.0); EOS # 0.2 10^3/uL (0.0-0.5); EOS % 2.1 % (0.0-3.0); HEMATOCRIT 31.3 % (42.0-52.0); HEMOGLOBIN 9.6 g/dl (13.5-17.5); LYMPH # 1.1 10^3/uL (1.5-5.0); LYMPH % 14.2 % (24.0-44.0); MEAN CORPUSCULAR HEMOGLOBIN 27.6 pg (27.0-33.0); MEAN CORPUSCULAR HGB CONC 30.7 g/dl (32.0-36.5); MEAN CORPUSCULAR VOLUME 89.9 fl (80.0-96.0); MONO # 0.9 10^3/uL (0.0-0.8); MONO % 10.8 % (2.0-8.0); NEUTROPHILS # 5.7 10^3/uL (1.5-8.5); NEUTROPHILS % 71.8 % (36.0-66.0); PLATELET COUNT, AUTOMATED 285 10^3/uL (150-450); RED BLOOD COUNT 3.48 10^6/uL (4.30-6.10); WHITE BLOOD COUNT 7.9 10^3/uL (4.0-10.0)
[2024-06-21 05:14] LABS: C REACTIVE PROTEIN QUANTITATIV 3.56 MG/DL (<1.0)
[2024-06-21 05:15] LABS: BLOOD UREA NITROGEN 22 MG/DL (9-23); CALCIUM LEVEL 8.3 MG/DL (8.3-10.6); CARBON DIOXIDE LEVEL 25 MMOL/L (20-31); CHLORIDE LEVEL 110 MMOL/L (98-107); CREATININE FOR GFR 0.99 MG/DL (0.70-1.30); GLOMERULAR FILTRATION RATE > 60.0 (>35); GLUCOSE, FASTING 80 MG/DL (74-106); SODIUM LEVEL 144 MMOL/L (136-145)
[2024-06-21 08:00] VITALS: BP 127/78; TEMP 98; O2SAT 95
[2024-06-21] MEDS: FUROSEMIDE 40MG/4ML VIAL IV SCH (10:10)
[2024-06-21] MEDS: CEFDINIR 300 MG CAP (OMNICEF) PO SCH (11:28)
[2024-06-21] MEDS ORDERED: PILL CUTTER 1 EACH XX PRN (11:45)
[2024-06-21 12:29] VITALS: BP 141/63; TEMP 98.3; O2SAT 93
[2024-06-21] MEDS: DOCUSATE SODIUM 100MG CAPSULE PO SCH (12:52)
[2024-06-21] MEDS: DAPAGLIFLOZIN PROPANEDIOL 10MG TABLET (FARXIGA) PO SCH (12:52)
[2024-06-21] MEDS: SENNA 8.6 MG TAB (SENOKOT) PO SCH (12:52)
[2024-06-21] MEDS: MOM 30ML SUSPENSION UDC PO SCH (12:52)
[2024-06-21 16:13] VITALS: BP 141/75; TEMP 98; O2SAT 95
[2024-06-21 19:41] VITALS: BP 136/76; TEMP 99.7; O2SAT 93
[2024-06-21 23:34] VITALS: BP 159/99; TEMP 98.6; O2SAT 93
[2024-06-22 03:51] VITALS: BP 137/72; TEMP 99; O2SAT 92
[2024-06-22 04:33] LABS: BASO % 0.5 % (0.0-1.0); EOS # 0.2 10^3/uL (0.0-0.5); EOS % 2.1 % (0.0-3.0); HEMATOCRIT 32.9 % (42.0-52.0); LYMPH % 12.6 % (24.0-44.0); MEAN CORPUSCULAR HEMOGLOBIN 27.5 pg (27.0-33.0); MEAN CORPUSCULAR HGB CONC 30.4 g/dl (32.0-36.5); MEAN CORPUSCULAR VOLUME 90.6 fl (80.0-96.0); MONO # 0.9 10^3/uL (0.0-0.8); MONO % 10.6 % (2.0-8.0); NEUTROPHILS % 73.5 % (36.0-66.0); PLATELET COUNT, AUTOMATED 344 10^3/uL (150-450); RED BLOOD COUNT 3.63 10^6/uL (4.30-6.10); WHITE BLOOD COUNT 8.2 10^3/uL (4.0-10.0)
[2024-06-22 04:56] LABS: BLOOD UREA NITROGEN 22 MG/DL (9-23); C REACTIVE PROTEIN QUANTITATIV 2.35 MG/DL (<1.0); CALCIUM LEVEL 8.7 MG/DL (8.3-10.6); CARBON DIOXIDE LEVEL 26 MMOL/L (20-31); CHLORIDE LEVEL 111 MMOL/L (98-107); CREATININE FOR GFR 1.03 MG/DL (0.70-1.30); GLOMERULAR FILTRATION RATE > 60.0 (>35); GLUCOSE, FASTING 81 MG/DL (74-106); MAGNESIUM LEVEL 2.4 MG/DL (1.8-2.4); POTASSIUM SERUM 4.4 MMOL/L (3.5-5.1); SODIUM LEVEL 145 MMOL/L (136-145)
[2024-06-22 08:12] VITALS: BP 139/68; TEMP 98.6; O2SAT 95
[2024-06-22] MEDS: FUROSEMIDE 40 MG TAB PO SCH (09:18)
[2024-06-22] MEDS: RIVAROXABAN 15MG TAB (XARELTO) PO SCH (16:09)
[2024-06-23 03:29] VITALS: BP 124/60; TEMP 96.3; O2SAT 96
[2024-06-23 05:46] VITALS: BP 112/57; TEMP 97.7; O2SAT 92
[2024-06-23 07:55] VITALS: BP 132/62; TEMP 99; O2SAT 94
[2024-06-23] MEDS: PANTOPRAZOLE 40MG TAB (PROTONIX) PO SCH (08:37)
[2024-06-23] MEDS: ACETAMINOPHEN 325 MG TAB PO PRN (23:09)
[2024-06-24 05:04] VITALS: BP 130/71; TEMP 97.1; O2SAT 92
[2024-06-24 07:29] VITALS: BP 111/62; TEMP 97.6; O2SAT 94
[2024-06-24 09:46] VITALS: BP 111/62
[2024-06-24] MEDS ORDERED: PANT40TA29 PO (09:47)
[2024-06-24] MEDS ORDERED: FARX1TAB3 PO (09:47)
[2024-06-24] MEDS ORDERED: MUCI600T31 PO (09:47)
[2024-06-24] MEDS ORDERED: POTA-150 PO (13:21)
== END 2024-06-24 13:27 | disposition home health service (06) | DRG 291 ==
LOC: EDBD 15:01 → M ED 15:01 → M ED INP 17:53 → EEVIPCON 17:53 → M MSPAV 21:22 → M ICU 06-20 08:21 → M PCU 06-20 13:44
PROVIDERS: ADMIT Internal Medicine; ATTEND Internal Medicine
DX: I11.0 Hypertensive heart disease with heart failure (principal); J18.9 Pneumonia, unspecified organism; I50.23 Acute on chronic systolic (congestive) heart failure; N39.0 Urinary tract infection, site not specified; E87.20 Acidosis, unspecified; E03.9 Hypothyroidism, unspecified; F39 Unspecified mood [affective] disorder; I25.10 Atherosclerotic heart disease of native coronary artery without angina pectoris; E78.5 Hyperlipidemia, unspecified; K25.9 Gastric ulcer, unspecified as acute or chronic, without hemorrhage or perforation; N40.1 Benign prostatic hyperplasia with lower urinary tract symptoms; E87.6 Hypokalemia; I27.20 Pulmonary hypertension, unspecified; H40.9 Unspecified glaucoma; R33.9 Retention of urine, unspecified; Z79.01 Long term (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s; F03.90 Unspecified dementia, unspecified severity, without behavioral disturbance, psychotic disturbance, mood disturbance, and anxiety; Z87.891 Personal history of nicotine dependence; Z66 Do not resuscitate; Z91.013 Allergy to seafood; Z91.018 Allergy to other foods; Z88.8 Allergy status to other drugs, medicaments and biological substances; Z79.899 Other long term (current) drug therapy

== ENCOUNTER → 2024-07-06 | Outpatient (REF) | payer OTHER, MEDICAID, MEDICARE ==
[~2024-07-06] MED LIST changes: +BRIM5DRO15 OU; +BUME2TAB3 PO; +FARX1TAB3 PO; +FLUTISP NARES; +FURO40TA2 PO; +MUCI600T31 PO; +PANT40TA29 PO; +POTA-150 PO; +POTA20LI16 PO; +SPIR-10 PO; +[UNRECOGNIZED DRUG - CODE] OU
[2024-07-06 12:53] LABS: BASO # 0.1 10^3/uL (0.0-0.2); BASO % 1.1 % (0.0-1.0); EOS # 0.2 10^3/uL (0.0-0.5); EOS % 1.8 % (0.0-3.0); HEMATOCRIT 38.1 % (42.0-52.0); HEMOGLOBIN 11.2 g/dl (13.5-17.5); LYMPH # 0.9 10^3/uL (1.5-5.0); LYMPH % 10.9 % (24.0-44.0); MEAN CORPUSCULAR HEMOGLOBIN 28.1 pg (27.0-33.0); MEAN CORPUSCULAR HGB CONC 29.4 g/dl (32.0-36.5); MEAN CORPUSCULAR VOLUME 95.7 fl (80.0-96.0); MONO # 0.9 10^3/uL (0.0-0.8); MONO % 10.4 % (2.0-8.0); NEUTROPHILS # 6.4 10^3/uL (1.5-8.5); NEUTROPHILS % 75.3 % (36.0-66.0); PLATELET COUNT, AUTOMATED 283 10^3/uL (150-450); RED BLOOD COUNT 3.98 10^6/uL (4.30-6.10); WHITE BLOOD COUNT 8.5 10^3/uL (4.0-10.0)
[2024-07-06 13:10] LABS: CALCIUM LEVEL 9.4 MG/DL (8.3-10.6); CREATININE FOR GFR 1.2 MG/DL (0.70-1.30); GLOMERULAR FILTRATION RATE 58.5 (>35); POTASSIUM SERUM 4.4 MMOL/L (3.5-5.1)
== END ==
LOC: M LAB REF 12:07
PROVIDERS: ATTEND Internal Medicine
DX: D50.0 Iron deficiency anemia secondary to blood loss (chronic) (principal); I50.41 Acute combined systolic (congestive) and diastolic (congestive) heart failure

== ENCOUNTER → 2024-07-20 | Outpatient (REF) | payer OTHER, MEDICAID, MEDICARE ==
[~2024-07-20] MED LIST changes: -BRIM1OPD OU; +BRIM5DRO25 OU
[2024-07-20 15:01] LABS: BASO # 0.1 10^3/uL (0.0-0.2); BASO % 1.1 % (0.0-1.0); EOS # 0.5 10^3/uL (0.0-0.5); EOS % 5.8 % (0.0-3.0); HEMATOCRIT 37.7 % (42.0-52.0); HEMOGLOBIN 11.2 g/dl (13.5-17.5); LYMPH # 1.4 10^3/uL (1.5-5.0); LYMPH % 16.9 % (24.0-44.0); MEAN CORPUSCULAR HEMOGLOBIN 27.1 pg (27.0-33.0); MEAN CORPUSCULAR HGB CONC 29.7 g/dl (32.0-36.5); MEAN CORPUSCULAR VOLUME 91.1 fl (80.0-96.0); MONO # 0.8 10^3/uL (0.0-0.8); NEUTROPHILS # 5.3 10^3/uL (1.5-8.5); PLATELET COUNT, AUTOMATED 269 10^3/uL (150-450); RED BLOOD COUNT 4.14 10^6/uL (4.30-6.10); WHITE BLOOD COUNT 8.1 10^3/uL (4.0-10.0)
[2024-07-20 15:21] LABS: CALCIUM LEVEL 8.9 MG/DL (8.3-10.6); CREATININE FOR GFR 1.15 MG/DL (0.70-1.30); GLOMERULAR FILTRATION RATE 61.6 (>35); POTASSIUM SERUM 4.5 MMOL/L (3.5-5.1)
== END ==
LOC: M LAB REF 14:21
PROVIDERS: ATTEND Internal Medicine
DX: I50.41 Acute combined systolic (congestive) and diastolic (congestive) heart failure (principal); D50.0 Iron deficiency anemia secondary to blood loss (chronic)

== ENCOUNTER → 2024-07-29 | Outpatient (REF) | payer OTHER, MEDICAID, MEDICARE | LOC: M LAB REF 12:08 | PROVIDERS: ATTEND Internal Medicine | DX: I50.41 Acute combined systolic (congestive) and diastolic (congestive) heart failure (principal) ==

== ENCOUNTER → 2024-10-11 | Outpatient (CLI) | payer OTHER, MEDICAID, MEDICARE | LOC: M WUC 12:28 | PROVIDERS: ATTEND Internal Medicine Critical Care Medicine | DX: R91.8 Other nonspecific abnormal finding of lung field (principal) ==

== ENCOUNTER 2024-11-04 13:10 | Observation (INO) | payer OTHER, MEDICAID ==
[2024-11-04] MEDS ORDERED: FARX1TAB3 PO (14:57)
[2024-11-04] MEDS ORDERED: PANT-23 PO (14:57)
[2024-11-04] MEDS ORDERED: ENTR1TAB PO (14:57)
[2024-11-04] MEDS ORDERED: TREL1AER INH (14:57)
[2024-11-04] MEDS ORDERED: POTA-151 PO (14:57)
[2024-11-04] MEDS ORDERED: ALBU8.5H INH (14:57)
[2024-11-04] MEDS ORDERED: METO1TAB87 PO (14:57)
[2024-11-04] MEDS ORDERED: HOME MED LIST COMPLETE! XX SCH (15:00)
[2024-11-04 15:02] LABS: BASO # 0.1 10^3/uL (0.0-0.2); BASO % 0.7 % (0.0-1.0); EOS # 0.2 10^3/uL (0.0-0.5); EOS % 1.9 % (0.0-3.0); LYMPH # 1.1 10^3/uL (1.5-5.0); LYMPH % 9.4 % (24.0-44.0); MONO # 1.1 10^3/uL (0.0-0.8); MONO % 9.3 % (2.0-8.0); NEUTROPHILS # 9.4 10^3/uL (1.5-8.5); NEUTROPHILS % 78.0 % (36.0-66.0); PLATELET COUNT, AUTOMATED 276 10^3/uL (150-450)
[2024-11-04] MEDS ORDERED: ALBUTEROL 90 MCG/ACT 8 GM HFA INHALER INH PRN (15:20)
[2024-11-04] MEDS ORDERED: ACETAMINOPHEN 325 MG TAB PO PRN (15:20)
[2024-11-04] MEDS ORDERED: FLUTICASONE PROPIONATE 0.05% NASAL SPRAY 16 GM NARES PRN (15:20)
[2024-11-04] MEDS ORDERED: PERCOCET 5MG/325MG TAB PO PRN (15:25)
[2024-11-04] MEDS: LIDOCAINE 5% PATCH TD ONE (15:30)
[2024-11-04] MEDS: PERCOCET 5MG/325MG TAB PO ONE (15:31)
[2024-11-04 15:32] LABS: ALT/SGPT < 9 U/L (7.0-40); AST/SGOT 17 U/L (<34); CALCIUM LEVEL 9.9 MG/DL (8.3-10.6); CARBON DIOXIDE LEVEL 23 MMOL/L (20-31); CHLORIDE LEVEL 106 MMOL/L (98-107); CREATININE FOR GFR 1.45 MG/DL (0.70-1.30); GLOMERULAR FILTRATION RATE 46.6 (>35); POTASSIUM SERUM 5.7 MMOL/L (3.5-5.1); SODIUM LEVEL 140 MMOL/L (136-145)
[2024-11-04] MEDS ORDERED: PILL CUTTER 1 EACH XX PRN (16:05)
[2024-11-04] MEDS: FUROSEMIDE 40 MG/4 ML VIAL IV SCH (17:00)
[2024-11-04] MEDS: ALBUTEROL SULFATE 2.5 MG/0.5 ML INH CONCENTRATE NEB SOLN NEB ONE (17:03)
[2024-11-04] MEDS: CALCIUM GLUCONATE 1,000 MG in DEXTROSE 5% (D5W) MINI-BAG PLU 100 ML IV ONE (17:03)
[2024-11-04 17:09] LABS: CPK CREATINE PHOSPHOKINASE 56 U/L (46-171)
[2024-11-04] MEDS: SODIUM CHLORIDE 0.9% 1000 ML IV SCH (17:15)
[2024-11-04 17:51] LABS: APPEARANCE, URINE CLOUDY (CLEAR); BACTERIA, URINE AUTO NEGATIVE (NEGATIVE); BILIRUBIN, URINE AUTO NEGATIVE (NEGATIVE); BLOOD, URINE BLOOD 2+ (NEGATIVE); GLUCOSE, URINE (UA) AUTO 1+ mg/dL (NEGATIVE); KETONE, URINE AUTO NEGATIVE (NEGATIVE); LEUKOCYTE ESTERASE, URINE AUTO 3+ (NEGATIVE); NITRITE, URINE AUTO NEGATIVE (NEGATIVE); PROTEIN, URINE AUTO NEGATIVE (NEGATIVE); RBC, URINE AUTO 23 /HPF (0-3); SPECIFIC GRAVITY URINE AUTO 1.011 (1.002-1.035); SQUAMOUS EPITHELIAL CELL UR AU 0 /HPF (0-6); UROBILINOGEN, URINE AUTO 0.2 mg/dL (0.0-2.0); WBC, URINE AUTO TNTC /HPF (0-3); YEAST LIKE CELL URINE AUTO SMALL
[2024-11-04] MEDS: DEXTROSE 50% 50 ML SYRINGE IV STA (17:59)
[2024-11-04] MEDS: HumuLIN R (REGULAR) INSULIN (NovoLIN R) **100 U/ML** PER UNIT IV STA (17:59)
[2024-11-04] MEDS: BRIMONIDINE 0.1% OPHTH SOLN 5 ML OU SCH (18:08)
[2024-11-04] MEDS: SYMBICORT 80/4.5MCG INHALER 6GM INH SCH (20:24)
[2024-11-04 20:53] LABS: CALCIUM LEVEL 9.7 MG/DL (8.3-10.6); CARBON DIOXIDE LEVEL 23.0 MMOL/L (20-31); CHLORIDE LEVEL 106.0 MMOL/L (98-107); CREATININE FOR GFR 1.52 MG/DL (0.70-1.30); GLOMERULAR FILTRATION RATE 44.1 (>35); POTASSIUM SERUM 4.3 MMOL/L (3.5-5.1); SODIUM LEVEL 143.0 MMOL/L (136-145)
[2024-11-04] MEDS ORDERED: ENTRESTO 24-26 MG TABLET (SACUBITRIL/VALSARTAN) PO SCH (21:00)
[2024-11-04] MEDS: busPIRone 5 MG TAB PO SCH (21:51)
[2024-11-04] MEDS: LATANOPROST 0.005% OPHTH SOLN 2.5 ML OU SCH (21:51)
[2024-11-04 22:00] VITALS: BP 116/76; TEMP 97.5; O2SAT 96
[2024-11-04 22:19] LABS: MAGNESIUM LEVEL 2.5 MG/DL (1.8-2.4)
[2024-11-05 03:11] VITALS: BP 111/74; TEMP 97.9; O2SAT 95
[2024-11-05 06:18] LABS: PLATELET COUNT, AUTOMATED 257 10^3/uL (150-450)
[2024-11-05] MEDS: LEVOTHYROXINE 112 MCG TABLET (0.112 MG) PO SCH (06:23)
[2024-11-05 06:46] LABS: ALT/SGPT 9.0 U/L (7.0-40); AST/SGOT 21.0 U/L (<34); CALCIUM LEVEL 9.6 MG/DL (8.3-10.6); CARBON DIOXIDE LEVEL 23.0 MMOL/L (20-31); CHLORIDE LEVEL 104.0 MMOL/L (98-107); CREATININE FOR GFR 1.52 MG/DL (0.70-1.30); GLOMERULAR FILTRATION RATE 44.1 (>35); POTASSIUM SERUM 4.8 MMOL/L (3.5-5.1); SODIUM LEVEL 139.0 MMOL/L (136-145)
[2024-11-05] MEDS: TIOTROPIUM BROM 2.5MCG/ACTUATION 4GM INH INH SCH (07:42)
[2024-11-05] MEDS: NS 500 ML IV ONE (08:07)
[2024-11-05] MEDS: TAMSULOSIN 0.4 MG CAP PO SCH (08:20)
[2024-11-05] MEDS: PANTOPRAZOLE 40MG TAB PO SCH (08:20)
[2024-11-05] MEDS: DAPAGLIFLOZIN PROPANEDIOL 10 MG TABLET PO SCH (08:20)
[2024-11-05] MEDS: RIVAROXABAN 15MG TAB PO SCH (08:21)
[2024-11-05] MEDS: METOPROLOL TART 25 MG TABLET PO SCH (08:21)
[2024-11-05] MEDS: FUROSEMIDE 40 MG TAB PO SCH (09:00)
[2024-11-05] MEDS ORDERED: POTASSIUM CHLORIDE 10MEQ SR TABLET PO SCH (09:00)
[2024-11-05] MEDS ORDERED: SPIRONOLACTONE 12.5MG PER 1/2 TABLET PO SCH (09:00)
[2024-11-05] MEDS: PERCOCET 5MG/325MG TAB PO PRN (13:19)
[2024-11-05 13:26] VITALS: BP 138/76; TEMP 97.5; O2SAT 97
[2024-11-05] MEDS: MIRALAX *UNIT DOSE* 17 GM PACKET PO SCH (16:59)
[2024-11-05 19:59] VITALS: BP 137/77; TEMP 97.9; O2SAT 96
[2024-11-05] MEDS: SENNA 8.6 MG TAB PO PRN (21:01)
[2024-11-06 03:55] VITALS: BP 141/78; TEMP 97.9; O2SAT 95
[2024-11-06 06:47] LABS: BASO # 0.1 10^3/uL (0.0-0.2); BASO % 0.9 % (0.0-1.0); EOS # 0.3 10^3/uL (0.0-0.5); EOS % 3.1 % (0.0-3.0); LYMPH # 1.0 10^3/uL (1.5-5.0); LYMPH % 9.6 % (24.0-44.0); MONO # 1.2 10^3/uL (0.0-0.8); MONO % 11.3 % (2.0-8.0); NEUTROPHILS # 7.8 10^3/uL (1.5-8.5); NEUTROPHILS % 74.7 % (36.0-66.0); PLATELET COUNT, AUTOMATED 242 10^3/uL (150-450)
[2024-11-06 07:11] LABS: CALCIUM LEVEL 9.3 MG/DL (8.3-10.6); CARBON DIOXIDE LEVEL 21.0 MMOL/L (20-31); CHLORIDE LEVEL 107.0 MMOL/L (98-107); CREATININE FOR GFR 1.37 MG/DL (0.70-1.30); GLOMERULAR FILTRATION RATE 49.9 (>35); POTASSIUM SERUM 4.6 MMOL/L (3.5-5.1); SODIUM LEVEL 141.0 MMOL/L (136-145)
[2024-11-06 08:15] VITALS: BP 149/61
[2024-11-06] MEDS ORDERED: DICL1PAT6 TD (09:44)
== END 2024-11-06 11:23 | disposition home health service (06) ==
LOC: M ED 13:10 → EDBD 13:10 → M ED INP 13:11 → M MSPAV 21:12
PROVIDERS: ADMIT Internal Medicine; ATTEND Internal Medicine
DX: S22.41XA Multiple fractures of ribs, right side, initial encounter for closed fracture (principal); W19.XXXA Unspecified fall, initial encounter; Y92.002 Bathroom of unspecified non-institutional (private) residence as the place of occurrence of the external cause; Y93.9 Activity, unspecified; Y99.9 Unspecified external cause status; F03.90 Unspecified dementia, unspecified severity, without behavioral disturbance, psychotic disturbance, mood disturbance, and anxiety; I50.9 Heart failure, unspecified; I11.9 Hypertensive heart disease without heart failure; I25.10 Atherosclerotic heart disease of native coronary artery without angina pectoris; Z98.61 Coronary angioplasty status; Z86.718 Personal history of other venous thrombosis and embolism; Z79.01 Long term (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s; E78.5 Hyperlipidemia, unspecified; E03.9 Hypothyroidism, unspecified; Z79.899 Other long term (current) drug therapy
CPT/HCPCS: 36415; 70450; 71101; 71250; 72125; 74176; 80048; 80053; 80076; 81001; 82550; 83735; 83880; 85025; 85027; 93005; 94640; 96374; 96375; 96376; 97116; 97161; 97165; 97530; 99285; G0378; J0612; J1815; J1938

== ENCOUNTER → 2024-12-27 | Outpatient (CLI) | payer OTHER, MEDICAID ==
[~2024-12-27] MED LIST changes: +ALBU8.5H INH; +DICL1PAT6 TD; +ENTR1TAB PO; +METO1TAB87 PO; +PANT-23 PO; +POTA-151 PO; +TREL1AER INH
== END ==
LOC: M WUC 14:38
DX: M25.551 Pain in right hip (principal); M16.11 Unilateral primary osteoarthritis, right hip

== ENCOUNTER → 2025-01-19 | Outpatient (CLI) | payer OTHER, MEDICAID | LOC: M RAD 13:24 | DX: N50.82 Scrotal pain (principal); N43.3 Hydrocele, unspecified ==